=== PATIENT | female | born 1950 | race African-American/Black ===

== ENCOUNTER 2019-08-28 10:13 | Emergency (ER) | payer OTHER ==
--- NOTE | 2019-08-28 11:18 | RAD REPORT ---
EXAM DESCRIPTION: RAD - Chest Pa And Lat (2 Views) - 08/28/2019 10:43 am CLINICAL HISTORY: COUGH Chest pain. COMPARISON: No comparisons FINDINGS: The lungs are mildly hyperexpanded but clear. The heart is upper limit of normal in size. No displaced fractures.
[2019-08-28] MEDS ORDERED: CEFTRIAXONE/SWI 1gm 1 GM/10 ML SYR ONE (11:33)
[2019-08-28] MEDS ORDERED: LEVALBUTEROL 1.25 MG/3 ML NEB ONE (11:33)
[2019-08-28] MEDS ORDERED: IPRATROPIUM BROM 0.5MG/2.5ML ONE (11:33)
[2019-08-28 11:51] LABS: Absolute Lymphocytes (CBC) 1.9 K/uL (0.7-4.9); Basophils % 0.5 % (0-1.3); Hematocrit 38.1 % (36.0-45.0); Lymphocytes % 27.9 % (15.3-44.8); MPV 8.1 fL (7.6-11.3); RBC Red Blood Cell Count 4.08 M/uL (3.86-4.86)
[2019-08-28 11:55] LABS: Potassium 3.4 mmol/L (3.5-5.1)
--- NOTE | 2019-08-28 11:58 | ER ---
Nurse's Notes [facility] Name: Marry Chowdary Age: 68 yrs Sex: Female : 1950 Arrival Date: 08/28/2019 Time: 10:17 Bed X-Ray Private MD: Wolfgang Noriega R Diagnosis: Cough Presentation: 08/28 10:20 Presenting complaint: Patient states: "I've been coughing and I hear some rattling in aj1 my chest. I went to Dr. Hari Malcolm and he put me on some antibiotics. I wish he put me on that cough medicine with the codeine in it but he gave me the antibiotics and they aren't helping" Denies fever. Transition of care: patient was not received from another setting of care. Onset of symptoms was August 21, 2019. Risk Assessment: Do you want to hurt yourself or someone else? Patient reports no desire to harm self or others. Initial Sepsis Screen: Does the patient meet any 2 criteria? HR > 90 bpm. No. Patient's initial sepsis screen is negative. Does the patient have a suspected source of infection? Yes: Productive cough/pneumonia. Care prior to arrival: None. 10:20 Method Of Arrival: Ambulatory aj1 10:20 Acuity: MOSES 3 aj1 Triage Assessment: 10:25 General: Appears in no apparent distress. comfortable, Behavior is calm, cooperative, aj1 appropriate for age. Pain: Denies pain. Neuro: Level of Consciousness is awake, alert, obeys commands. Cardiovascular: Patient's skin is warm and dry. Respiratory: Airway is patent Respiratory effort is even, unlabored, Respiratory pattern is regular, symmetrical. Historical: - Allergies: 10:25 No Known Allergies; aj1 - Home Meds: 10:25 lisinopril 40 mg Oral tab 1 tab once daily [Active]; rosuvastatin 5 mg oral tab 1 tab aj1 once daily [Active]; hydrochlorothiazide 12.5 mg Oral cap 1 cap once daily [Active]; - PMHx: 10:25 Hypertension; Hyperlipidemia; Arthritis; aj1 - Immunization history:: Flu vaccine is up to date. - Social history:: Smoking status: Patient/guardian denies using tobacco. - Ebola Screening: : Patient denies travel to an Ebola-affected area in the 21 days before illness onset. Screenin:26 Abuse screen: Denies threats or abuse. Nutritional screening: No deficits noted. rb1 Tuberculosis screening: No symptoms or risk factors identified. Fall Risk None identified. Assessment: 10:26 General: Appears in no apparent distress. comfortable, Behavior is calm, cooperative, rb1 Denies fever. Neuro: Level of Consciousness is awake, alert, obeys commands, Oriented to person, place, time, situation. Cardiovascular: Capillary refill < 3 seconds is brisk in bilateral fingers. Respiratory: Reports cough that is. Derm: Skin is dry, Skin is normal, Skin temperature is warm. Musculoskeletal: Range of motion: intact in all extremities. 10:31 Reassessment: Pt. went to X-ray. rb1 11:30 Reassessment: Patient appears in no apparent distress at this time. No changes from rb1 previously documented assessment. Patient denies pain at this time. 12:09 Reassessment: Patient appears in no apparent distress at this time. Patient and/or rb1 family updated on plan of care and expected duration. Pain level reassessed. Patient is alert, oriented x 3, equal unlabored respirations, skin warm/dry/pink. Vital Signs: 10:25 BP 188 / 100; Pulse 102; Resp 20; Temp 97.9(TE); Pulse Ox 100% on R/A; Weight 107.5 kg aj1 (R); Height 5 ft. 7 in. (170.18 cm) (R); Pain 0/10; 11:25 BP 168 / 94; Pulse 79; Resp 19; Pulse Ox 99% on R/A; Pain 0/10; rb1 12:05 BP 158 / 88; Pulse 81; Resp 17; Temp 98.0(O); Pulse Ox 100% on R/A; Pain 0/10; rb1 10:25 Body Mass Index 37.12 (107.50 kg, 170.18 cm) aj1 ED Course: 10:17 Patient arrived in ED. as 10:17 Wolfgang Noriega MD is Private Physician. as 10:18 Carolina Gabriel FNP-C is [facility]. kb 10:18 Fausto Perez MD is Attending Physician. kb 10:23 Triage completed. aj1 10:25 Arm band placed on Patient placed in an exam room. aj1 10:26 Patient has correct armband on for positive identification. Bed in low position. Call rb1 light in reach. Side rails up X 1. Pulse ox on. NIBP on. Warm blanket given. 10:29 Mary Mayer, RN is Primary Nurse. rb1 10:33 X-ray completed. Patient tolerated procedure well. Patient moved to radiology via wheelchair. Patient moved back from radiology. 10:39 Chest Pa And Lat (2 Views) XRAY In Process Unspecified. EDMS 11:29 Initial lab(s) drawn, by me, sent to lab. Inserted saline lock: 20 gauge in left hand, em1 using aseptic technique. Blood collected. 12:12 No provider procedures requiring assistance completed. IV discontinued, intact, rb1 bleeding controlled, No redness/swelling at site. Pressure dressing applied. Administered Medications: 11:40 Drug: Xopenex (3) 1.25 mg Route: Inhalation; rb1 11:40 Drug: AtroVENT Aerosol 0.5 mg Route: Inhalation; rb1 11:42 Drug: Rocephin 1 grams Route: IV; Rate: calculated rate; Site: left hand; rb1 Outcome: 11:58 Discharge ordered by . kb 12:12 Patient left the ED. rb1 12:12 Discharged to home ambulatory, with family. rb1 12:12 Condition: stable 12:12 Discharge instructions given to patient, Instructed on discharge instructions, follow up and referral plans. medication usage, Demonstrated understanding of instructions, follow-up care, medications, Prescriptions given X 1. Signatures: Dispatcher [employer] EDWY Carolina Gabriel, DIRECTOR EXPERIMENTAL MEDICINE-C DIRECTOR EXPERIMENTAL MEDICINE-Lydia Gibbons RN RN 1 Olga Becerril Eric em1 Mary Mayer, RN RN rb1 Zohaib Garland
--- NOTE | 2019-08-28 11:58 | EDPHYS ---
Physician Documentation [facility] Name: Marry Chowdary Age: 68 yrs Sex: Female : 1950 Arrival Date: 08/28/2019 Time: 10:17 Bed X-Ray Private MD: Wolfgang Noriega R ED Physician Fausto Perez HPI: 08/28 10:58 This 68 yrs old Black Female presents to ER via Ambulatory with complaints of Cough. kb 11:16 The patient or guardian reports cough, that is intermittent, described as moderate, kb with no sputum. Onset: The symptoms/episode began/occurred 2 week(s) ago. Severity of symptoms: At their worst the symptoms were moderate, in the emergency department the symptoms are unchanged. Modifying factors: The symptoms are alleviated by nothing, the symptoms are aggravated by nothing. Associated signs and symptoms: The patient has no apparent associated signs or symptoms. The patient has not experienced similar symptoms in the past. The patient has been recently seen by a physician: the patient's primary care provider, with similar presenting complaints, was given a prescription for antibiotics. Pt reports cough for 2 weeks. Denies fever or any other symptoms. Was seen by Dr Noriega yesterday and given Augmentin, but she really wanted the cough syrup with codeine. States the antibiotics are not helping with the cough. Historical: - Allergies: 10:25 No Known Allergies; aj1 - Home Meds: 10:25 lisinopril 40 mg Oral tab 1 tab once daily [Active]; rosuvastatin 5 mg oral tab 1 tab aj1 once daily [Active]; hydrochlorothiazide 12.5 mg Oral cap 1 cap once daily [Active]; - PMHx: 10:25 Hypertension; Hyperlipidemia; Arthritis; aj1 - Immunization history:: Flu vaccine is up to date. - Social history:: Smoking status: Patient/guardian denies using tobacco. - Ebola Screening: : Patient denies travel to an Ebola-affected area in the 21 days before illness onset. ROS: 10:58 Constitutional: Negative for fever, chills, and weight loss, Neck: Negative for injury, kb pain, and swelling, Cardiovascular: Negative for chest pain, palpitations, and edema, Abdomen/GI: Negative for abdominal pain, nausea, vomiting, diarrhea, and constipation, Back: Negative for injury and pain, MS/Extremity: Negative for injury and deformity, Skin: Negative for injury, rash, and discoloration, Neuro: Negative for headache, weakness, numbness, tingling, and seizure. 10:58 Respiratory: Positive for cough, with no reported sputum, Negative for dyspnea on exertion, hemoptysis, orthopnea, pleurisy, shortness of breath, sputum production, wheezing. Exam: 11:16 Constitutional: This is a well developed, well nourished patient who is awake, alert, kb and in no acute distress. Head/Face: Normocephalic, atraumatic. ENT: Nares patent. No nasal discharge, no septal abnormalities noted. Tympanic membranes are normal and external auditory canals are clear. Oropharynx with no redness, swelling, or masses, exudates, or evidence of obstruction, uvula midline. Mucous membranes moist. Neck: Trachea midline, no thyromegaly or masses palpated, and no cervical lymphadenopathy. Supple, full range of motion without nuchal rigidity, or vertebral point tenderness. No Meningismus. Chest/axilla: Normal chest wall appearance and motion. Nontender with no deformity. No lesions are appreciated. Cardiovascular: Regular rate and rhythm with a normal S1 and S2. No gallops, murmurs, or rubs. Normal PMI, no JVD. No pulse deficits. Abdomen/GI: Soft, non-tender, with normal bowel sounds. No distension or tympany. No guarding or rebound. No evidence of tenderness throughout. Back: No spinal tenderness. No costovertebral tenderness. Full range of motion. Skin: Warm, dry with normal turgor. Normal color with no rashes, no lesions, and no evidence of cellulitis. MS/ Extremity: Pulses equal, no cyanosis. Neurovascular intact. Full, normal range of motion. Neuro: Awake and alert, GCS 15, oriented to person, place, time, and situation. Cranial nerves II-XII grossly intact. Motor strength 5/5 in all extremities. Sensory grossly intact. Cerebellar exam normal. Normal gait. 11:16 Respiratory: the patient does not display signs of respiratory distress, Respirations: normal, Breath sounds: rhonchi, that are mild, that are moderate, are heard in the left upper lobe, left lower lobe, left posterior upper lobe and left posterior lower lobe. Vital Signs: 10:25 BP 188 / 100; Pulse 102; Resp 20; Temp 97.9(TE); Pulse Ox 100% on R/A; Weight 107.5 kg aj1 (R); Height 5 ft. 7 in. (170.18 cm) (R); Pain 0/10; 11:25 BP 168 / 94; Pulse 79; Resp 19; Pulse Ox 99% on R/A; Pain 0/10; rb1 12:05 BP 158 / 88; Pulse 81; Resp 17; Temp 98.0(O); Pulse Ox 100% on R/A; Pain 0/10; rb1 10:25 Body Mass Index 37.12 (107.50 kg, 170.18 cm) aj1 MDM: 10:27 Patient medically screened. [facility] 11:56 Data reviewed: vital signs, nurses notes. Data interpreted: Pulse oximetry: on room air kb is 99 %. Interpretation: normal. Counseling: I had a detailed discussion with the patient and/or guardian regarding: the historical points, exam findings, and any diagnostic results supporting the discharge/admit diagnosis, lab results, radiology results, the need for outpatient follow up, a family practitioner, to return to the emergency department if symptoms worsen or persist or if there are any questions or concerns that arise at home. 08/28 11:02 Order name: CBC with Diff; Complete Time: 11:53 kb 08/28 11:02 Order name: Basic Metabolic Panel; Complete Time: 11:56 kb 08/28 10:24 Order name: Chest Pa And Lat (2 Views) XRAY; Complete Time: 11:22 kb 08/28 11:08 Order name: Urine Dipstick--Ancillary (enter results) eb 08/28 10:24 Order name: Urine Dipstick-Ancillary (obtain specimen); Complete Time: 11:29 kb 08/28 11:02 Order name: IV Start; Complete Time: 11:29 kb 08/28 11:22 Order name: Vital Signs; Complete Time: 11:44 kb Administered Medications: 11:40 Drug: Xopenex (3) 1.25 mg Route: Inhalation; rb1 11:40 Drug: AtroVENT Aerosol 0.5 mg Route: Inhalation; rb1 11:42 Drug: Rocephin 1 grams Route: IV; Rate: calculated rate; Site: left hand; rb1 Disposition: 08/28/19 11:58 Discharged to Home. Impression: Cough. - Condition is Stable. - Discharge Instructions: Cough, Adult, [id number]. - Prescriptions for Bromfed DM 2- 30-10 mg/5 mL Oral syrup - take 10 milliliter by ORAL route every 4 hours As needed; 100 milliliter. - Medication Reconciliation Form, Thank You Letter, Antibiotic Education, Prescription Opioid Use form. - Follow up: Private Physician; When: 2 - 3 days; Reason: Recheck today's complaints, Continuance of care, Re-evaluation by your physician. Follow up: Emergency Department; When: As needed; Reason: Worsening of condition. Addendum: 08/31/2019 06:44 Co-signature as Attending Physician, Fausto Perez MD I agree with the assessment and c felix plan of care. Signatures: Dispatcher [employer] EDMS Carolina Gabriel, PAIGE-C ASSISTANT PROFESSOR OF BUSINESS-Lydia Gibbons, RN RN aj1 Fausto Perez MD MD cha Barber, Rebecca, RN RN rb1 Corrections: (The following items were deleted from the chart) 08/28 12:12 11:58 08/28/2019 11:58 Discharged to Home. Impression: Cough. Condition is Stable. rb1 Forms are Medication Reconciliation Form, Thank You Letter, Antibiotic Education, Prescription Opioid Use. Follow up: Private Physician; When: 2 - 3 days; Reason: Recheck today's complaints, Continuance of care, Re-evaluation by your physician. Follow up: Emergency Department; When: As needed; Reason: Worsening of condition. kb
[2019-08-28 12:24] LABS: Urine Blood 1+ (NEG); Urine Glucose NEGATIVE (NEG); Urine Protein NEGATIVE (NEG); Urine Specific Gravity 1.015 (1.005-1.030)
[2019-08-28 15:18] VITALS: TEMP 97.9
[2019-08-28 15:19] VITALS: BP 168/94; O2SAT 99
== END 2019-08-28 12:12 | disposition home or self-care (01) ==
LOC: ER 10:13
DX: R05 Cough (principal); I10 Essential (primary) hypertension; E78.5 Hyperlipidemia, unspecified
CPT/HCPCS: 85025; 80048; 36415; 81003; 71046; 96374; 99284; J0696

== ENCOUNTER 2021-06-05 09:58 | Inpatient (IN) | payer OTHER, SELFPAY ==
[2021-06-05 10:57] LABS: Absolute Lymphocytes (CBC) 1.1 K/uL (0.7-4.9); Basophils % 0.3 % (0-1.3); Hematocrit 36.5 % (36.0-45.0); Lymphocytes % 15.5 % (15.3-44.8); MPV 8.2 fL (7.6-11.3); RBC Red Blood Cell Count 3.93 M/uL (3.86-4.86)
[2021-06-05] MEDS ORDERED: METHYLPREDNISOLONE 125 MG INJ ONE (10:58)
[2021-06-05] MEDS ORDERED: NA CHLORIDE 0.9% 500 ML ONE ×2 (10:59→11:33)
[2021-06-05 11:01] LABS: Urine Blood Trace-lysed (Negative); Urine Glucose Negative (Negative); Urine Protein 3+ (Negative); Urine Specific Gravity >=1.030 (1.005-1.030)
[2021-06-05 11:01] LABS: Protime INR 1.11
[2021-06-05 11:30] LABS: Bilirubin Direct 0.2 mg/dL (0-0.2); Bilirubin Total 0.5 mg/dL (0.2-1.0); Ferritin 4240.5 ng/mL (8-388); Protein, Total 8.4 g/dL (6.4-8.2); Troponin (Emerg Dept Use Only) 0.04 ng/mL (0.0-0.045)
--- NOTE | 2021-06-05 11:30 | RAD REPORT ---
EXAM DESCRIPTION: Kevon Single View06/05/2021 11:16 am CLINICAL HISTORY: Cough COMPARISON: 2019 FINDINGS: Lungs appear mildly hazy. The heart is normal size IMPRESSION: Lungs appear mildly hazy which may indicate a mild pneumonia
[2021-06-05 12:13] LABS: Urine Bacteria <20 /HPF (<20); Urine RBC <5 /HPF (NONE SEEN)
[2021-06-05 12:14] LABS: Urine Amorphous Sediment 2+ /HPF (NONE SEEN); Urine Mucus 1+ /HPF (NONE SEEN)
[2021-06-05 12:17] LABS: Blood Gas Oxyhemoglobin 90.2 % (94-97); Blood O2 Saturation 91.9 % (92-98.5)
[2021-06-05] MEDS ORDERED: NA CHLORIDE 0.9% 250 ML ONE (12:22)
[2021-06-05] MEDS ORDERED: AZITHROMYCIN 500 MG INJ IVPB ONE (12:22)
--- NOTE | 2021-06-05 12:35 | EDPHYS ---
Physician Documentation [facility] Name: Marry Chowdary Age: 70 yrs Sex: Female : 1950 Arrival Date: 06/05/2021 Time: 10:08 Bed 30 Private MD: ED Physician Joaquin Barrios HPI: 06/05 10:16 This 70 yrs old Black Female presents to ER via Unassigned with complaints of sob. rn 10:16 The patient has shortness of breath at rest. Onset: The symptoms/episode began/occurred rn at an unknown time. Duration: The symptoms are continuous. The patient's shortness of breath is aggravated by light activity, talking, is alleviated by rest, sitting up, application of supplemental oxygen. Associated signs and symptoms: Pertinent positives: non-productive cough, Pertinent negatives: chest pain, hemoptysis, loss of consciousness. Severity of symptoms: At their worst the symptoms were moderate in the emergency department the symptoms are unchanged. The patient has not experienced similar symptoms in the past. It is unknown whether or not the patient has recently seen a physician. Per EMS, patient with AMS and weakness, + SOB, COVID +. Pt denies chronic medical problems. Reports sick for 1 week. NO vomiting/diarrhea. Daughter checked on patient, patient unable to even stand. . Historical: - Allergies: 10:21 No Known Allergies; vg1 - Home Meds: 10:21 hydrochlorothiazide 12.5 mg Oral cap 1 cap once daily [Active]; lisinopril 40 mg Oral vg1 tab 1 tab once daily [Active]; rosuvastatin 5 mg Oral tab 1 tab once daily [Active]; - PMHx: 10:21 Arthritis; Hyperlipidemia; Hypertension; vg1 - Immunization history:: Adult Immunizations up to date, Client reports receiving the 1st dose of the Covid vaccine, June 01, 2021. - Social history:: Smoking status: Patient denies any tobacco usage or history of. - Family history:: not pertinent. - Hospitalizations: : No recent hospitalization is reported. ROS: 10:16 Constitutional: Negative for fever, chills, and weight loss, Eyes: Negative for injury, rn pain, redness, and discharge, Neck: Negative for injury, pain, and swelling, Cardiovascular: Negative for chest pain, palpitations, and edema, Respiratory: Negative for wheezing, and pleuritic chest pain Abdomen/GI: Negative for abdominal pain, nausea, vomiting, diarrhea, and constipation, Back: Negative for injury and pain, MS/Extremity: Negative for injury and deformity, Skin: Negative for injury, rash, and discoloration, Neuro: Negative for headache, numbness, tingling, and seizure. 10:16 All other systems are negative. Exam: 10:16 Constitutional: Overweight woman, + mild tachypnea Head/Face: Normocephalic, rn atraumatic. Eyes: Periorbital areas with no swelling, redness, or edema. ENT: Dry MM, no stridor Cardiovascular: Regular rate and rhythm. No pulse deficits. Respiratory: + mild tachypnea, no retractions, diminished at bases Abdomen/GI: soft, non-tender Skin: Warm, dry MS/ Extremity: Pulses equal, no cyanosis. Neuro: Awake and alert, GCS 15, not oriented to place or time. 11:53 ECG was reviewed by the Attending Physician. rn Vital Signs: 10:19 BP 102 / 68; Pulse 87; Resp 28; Temp 98.0(O); Pulse Ox 92% on 15% Non-rebreather mask; vg1 Weight 81.65 kg; Height 5 ft. 8 in. (172.72 cm); Pain 0/10; 11:00 BP 85 / 44; Pulse 86; Resp 40; Pulse Ox 93% on 15% Non-rebreather mask; vg1 12:26 BP 104 / 46; Pulse 83; Resp 32; Pulse Ox 97% on 15 lpm NC; ld1 10:19 Body Mass Index 27.37 (81.65 kg, 172.72 cm) vg1 12:26 Pt on hi jose armando 15LPM ld1 MDM: 10:08 Patient medically screened. rn 12:30 Differential diagnosis: Myocardial Infarction pneumonia, Pneumothorax pulmonary edema, rn Pulmonary Embolism reactive airway disease, Sepsis. Data reviewed: vital signs, nurses notes, lab test result(s), EKG, radiologic studies, plain films, and as a result, I will admit patient. Data interpreted: engine monitor: rate is 83 beats/min, rhythm is normal sinus rhythm, regular, with no ectopy, Interpretation: normal rate, normal rhythm, Pulse oximetry: on 100 % NRB is 92 %. Interpretation: hypoxia. Plan: O2 by Mask applied. Test interpretation: by ED physician or midlevel provider: ECG, plain radiologic studies, Chest x-ray with pneumonia, negative for pneumothorax. Counseling: I had a detailed discussion with the patient and/or guardian regarding: the historical points, exam findings, and any diagnostic results supporting the discharge/admit diagnosis, lab results, radiology results, the need for further work-up and treatment in the hospital. Response to treatment: the patient's symptoms have mildly improved after treatment. Admission orders: after a detailed discussion of the patient's condition and case, the admit orders are written by me. ED course: Will admit patient for pneumonia, likely Covid Covid pneumonia, acute renal failure, sepsis and hypotension.. 12:30 Antibiotic administration: rn 12:30 Antibiotic administration: Zithromax is given. rn 12:47 ED course: Blood pressure now 101/56 after some fluids.. 06/05 10:10 Order name: BMP 06/05 10:10 Order name: Blood Culture Adult (2) 06/05 10:10 Order name: C-Reactive Protein 06/05 10:10 Order name: CBC with Diff 06/05 10:10 Order name: D-Dimer 06/05 10:10 Order name: Ferritin 06/05 10:10 Order name: LFT's; Complete Time: 11:58 06/05 10:10 Order name: Lactate 06/05 10:10 Order name: PT-INR; Complete Time: 11:24 06/05 10:10 Order name: Procalcitonin; Complete Time: 11:58 06/05 10:10 Order name: Ptt, Activated; Complete Time: 11:24 06/05 10:10 Order name: Troponin (emerg Dept Use Only); Complete Time: 11:58 06/05 10:10 Order name: Urine Microscopic Only; Complete Time: 12:53 06/05 10:11 Order name: Basic Metabolic Panel; Complete Time: 11:58 [facility] 06/05 10:10 Order name: CXR XRAY; Complete Time: 11:31 06/05 10:11 Order name: Blood Culture EDCT 06/05 10:11 Order name: C-Reactive Protein; Complete Time: 11:58 EDCT 06/05 10:11 Order name: CBC with Automated Diff; Complete Time: 11:10 EDCT 06/05 10:11 Order name: D-Dimer; Complete Time: 11:24 EDCT 06/05 10:11 Order name: Ferritin; Complete Time: 11:58 [facility] 06/05 11:01 Order name: Urine Dipstick-Ancillary; Complete Time: 11:10 [facility] 06/05 11:59 Order name: ABG rn 06/05 16:43 Order name: Protime (+INR) EDCT 06/05 17:13 Order name: T4 Free [facility] 06/05 17:13 Order name: Thyroid Stimulating Hormone [facility] 06/06 03:06 Order name: CBC with Automated Diff EDCT 06/06 03:27 Order name: Comprehensive Metabolic Panel [facility] 06/07 03:05 Order name: Phosphorus [facility] 06/07 03:05 Order name: Magnesium [facility] 06/07 11:22 Order name: Comprehensive Metabolic Panel [facility] 06/05 10:10 Order name: EKG; Complete Time: 10:11 06/05 10:10 Order name: Cardiac monitoring; Complete Time: : 06/05 10:10 Order name: Droplet/Contact Precautions; Complete Time: 06/05 10:10 Order name: EKG - Nurse/Tech; Complete Time: : 06/05 10:10 Order name: IV Start; Complete Time: 06/05 10:10 Order name: Labs collected and sent; Complete Time: : 06/05 10:10 Order name: O2 Per Protocol; Complete Time: : 06/05 10:10 Order name: O2 Sat Monitoring; Complete Time: 06/05 10:10 Order name: Urine Dipstick-Ancillary (obtain specimen); Complete Time: 11:04 rn 06/06 07:34 Order name: US [facility] EC:53 Rate is 86 beats/min. Rhythm is regular. QRS [place] is Normal. NE interval is normal. QRS rn interval is normal. QT interval is normal. No Q waves. T waves are Inverted in leads II, III, aVF, V5, V6. No ST changes noted. Clinical impression: NSR w/ Non-specific ST/T Changes. Interpreted by me. Reviewed by me. Administered Medications: 10:52 Drug: NS 0.9% 500 ml Route: IV; Rate: bolus; Site: left forearm; vg1 12:15 Follow up: Response: No adverse reaction; IV Status: Completed infusion; IV Intake: ld1 500ml 10:54 Drug: SOLU-Medrol (methylPrednisoLONE) 125 mg Route: IVP; Site: left forearm; vg1 11:15 Drug: NS 0.9% 500 ml Route: IV; Rate: bolus; Site: left forearm; vg1 13:00 Follow up: Response: No adverse reaction; IV Status: Completed infusion; IV Intake: ld1 500ml 12:07 Drug: Zithromax (azithromycin) 500 mg Route: IVPB; Infused Over: 1 hrs; Site: left ld1 antecubital; 13:30 Follow up: Response: No adverse reaction; IV Status: Completed infusion; IV Intake: ld1 250ml Disposition: 12:30 Critical Care:. rn Disposition Summary: 06/05/21 12:34 Hospitalization Ordered Hospitalization Status: Inpatient Admission rn Condition: Fair rn Problem: new rn Symptoms: have improved rn Bed/Room Type: Standard rn Provider: Bell Izquierdo(06/05/21 13:11) rn Location: Intensive Care Unit(06/07/21 21:07) bb Room Assignment: 4-(06/07/21 21:07) bb Diagnosis - Sepsis, unspecified organism rn - Hypotension, unspecified rn - Pneumonia due to SARS-associated coronavirus rn - Acute kidney failure, unspecified rn Forms: - Medication Reconciliation Form rn - SBAR form intern architect time excluding procedures: 12:30 Critical care time: Bedside Care: 35 minutes, Consultation: 5 minutes. Total time: 40 rn minutes Signatures: Dispatcher [employer] Bere Matson RN RN bb Joaquin Barrios MD MD rn Smirch, Shelby, RN RN ss Lakisha Araiza, RN RN vg1 [place], RN RN ld1 Corrections: (The following items were deleted from the chart) 13:11 12:34 Eric Sotelo rn rn 16:17 12:34 Telemetry/MedSurg (Inpatient) rn ss 16:17 12:34 rn ss 06/07 21:07 06/05 16:17 [facility] ER HOLD ss bb 06/07 21:07 06/05 16:17 ERHOLD- ss bb
--- NOTE | 2021-06-05 12:35 | ER ---
Nurse's Notes [facility] Name: Marry Chowdary Age: 70 yrs Sex: Female : 1950 Arrival Date: 06/05/2021 Time: 10:08 Bed 30 Private MD: Diagnosis: Sepsis, unspecified organism;Hypotension, unspecified;Pneumonia due to SARS-associated coronavirus;Acute kidney failure, unspecified Presentation: 06/05 10:19 Chief complaint: EMS states: Pt c/o of Shortness of breath. Upon arrival pt O2 was 82% vg1 RA. Pt now on non rebreather 15L with O2 at 92%. Pt denies any chest pain at this time. Family stated pt is Covid +, but unsure of date of testing. Coronavirus screen: Client denies travel out of the [place] in the last 14 days. Client presents with at least one sign or symptom that may indicate coronavirus-19. Standard/surgical mask placed on the client. Provider contacted for isolation considerations. Ebola Screen: Patient negative for fever greater than or equal to 101.5 degrees Fahrenheit, and additional compatible Ebola Virus Disease symptoms. Initial Sepsis Screen: Does the patient meet any 2 criteria? No. Patient's initial sepsis screen is negative. Does the patient have a suspected source of infection? No. Patient's initial sepsis screen is negative. Risk Assessment: Do you want to hurt yourself or someone else? Patient reports no desire to harm self or others. Onset of symptoms was June 05, 2021. 10:19 Method Of Arrival: EMS: [facility] vg1 10:19 Acuity: [facility] 3 vg1 Triage Assessment: 10:21 General: Appears in no apparent distress. comfortable, Behavior is calm, cooperative. vg1 Pain: Denies pain. EENT: No signs and/or symptoms were reported regarding the EENT system. Neuro: Level of Consciousness is awake, alert, obeys commands, Oriented to person, place, time, situation. Cardiovascular: Patient's skin is warm and dry. Respiratory: Airway is patent Respiratory effort is even, unlabored, Respiratory pattern is tachypnea Breath sounds with crackles bilaterally. in left posterior lower lobe, right posterior middle lobe and right posterior lower lobe. GI: Reports diarrhea, Patient currently denies nausea, vomiting. : No signs and/or symptoms were reported regarding the genitourinary system. Derm: Skin is intact, Skin is pink, warm \T\ dry. Musculoskeletal: Circulation, motion, and sensation intact. Historical: - Allergies: 10:21 No Known Allergies; vg1 - Home Meds: 10: hydrochlorothiazide 12.5 mg Oral cap 1 cap once daily [Active]; lisinopril 40 mg Oral vg1 tab 1 tab once daily [Active]; rosuvastatin 5 mg Oral tab 1 tab once daily [Active]; - PMHx: 10:21 Arthritis; Hyperlipidemia; Hypertension; vg1 - Immunization history:: Adult Immunizations up to date, Client reports receiving the 1st dose of the Covid vaccine, June 01, 2021. - Social history:: Smoking status: Patient denies any tobacco usage or history of. - Family history:: not pertinent. - Hospitalizations: : No recent hospitalization is reported. Screenin:27 Abuse screen: Denies threats or abuse. Nutritional screening: No deficits noted. vg1 Tuberculosis screening: No symptoms or risk factors identified. Fall Risk No fall in past 12 months (0 pts). No secondary diagnosis (0 pts). IV access (20 points). Ambulatory Aid- Crutches/Cane/Walker (15 pts). Gait- Weak (10 pts.). Mental Status- Oriented to own ability (0 pts). Total Long Fall Scale indicates High Risk Score (45 or more points). Fall prevention measures have been instituted. Side Rails Up X 2 Placed Close to Nursing Station. Assessment: 10:28 Reassessment: SEE TRIAGE. vg1 11:05 Derm: Skin is moist, Rash noted that is red, on ABD fold. vg1 11:10 Reassessment: Dr Barrios notified of pt BP. Received VO to administer another 500 mL of vg1 NS IV x1. 12:26 Reassessment: Patient appears in no apparent distress at this time. No changes from ld1 previously documented assessment. Patient and/or family updated on plan of care and expected duration. Pain level reassessed. Vital Signs: 10:19 BP 102 / 68; Pulse 87; Resp 28; Temp 98.0(O); Pulse Ox 92% on 15% Non-rebreather mask; vg1 Weight 81.65 kg; Height 5 ft. 8 in. (172.72 cm); Pain 0/10; 11:00 BP 85 / 44; Pulse 86; Resp 40; Pulse Ox 93% on 15% Non-rebreather mask; vg1 12:26 BP 104 / 46; Pulse 83; Resp 32; Pulse Ox 97% on 15 lpm NC; ld1 10:19 Body Mass Index 27.37 (81.65 kg, 172.72 cm) vg1 12:26 Pt on hi jose armando 15LPM ld1 ED Course: 10:08 Patient arrived in ED. rn 10:08 Joaquin Barrios MD is Attending Physician. rn 10:19 Lakisha Araiza, DESTIN is Primary Nurse. vg1 10:21 Triage completed. vg1 10:27 Patient has correct armband on for positive identification. Bed in low position. Call vg1 light in reach. Side rails up X2. clinical research monitor on. Pulse ox on. NIBP on. 10:28 Arm band placed on. vg1 10:40 Maintain EMS IV. Dressing intact. Good blood return noted. Site clean \T\ dry. Gauge \T\ vg 1 site: 20 Left FA. 10:40 Initial lab(s) drawn, by me, sent to lab. First set of blood cultures drawn by me. vg1 10:55 Second set of blood cultures drawn by me. vg1 11:03 Warm blanket given. Pillow given. mh5 11:03 Straight cath inserted, using sterile technique, 16 Fr. Specimen obtained. mh5 11:04 Urine Microscopic Only Sent. mh5 11:04 Troponin (emerg Dept Use Only) Sent. mh5 11:04 Ptt, Activated Sent. mh5 11:04 Procalcitonin Sent. mh5 11:04 PT-INR Sent. mh5 11:04 Lactate Sent. mh5 11:04 LFT's Sent. mh5 11:04 Ferritin Sent. mh5 11:04 D-Dimer Sent. mh5 11:04 CBC with Diff Sent. mh5 11:04 C-Reactive Protein Sent. mh5 11:04 Blood Culture Adult (2) Sent. mh5 11:04 BMP Sent. mh5 11:05 Basic Metabolic Panel Sent. mh5 11:05 C-Reactive Protein Sent. mh5 11:05 Blood Culture Sent. mh5 11:05 Ferritin Sent. mh5 11:05 D-Dimer Sent. mh5 11:05 EKG done, by ED staff, reviewed by Joaquin Barrios MD. 5 11:16 CXR XRAY In Process Unspecified. EDMS 12:34 Eric Sotelo is Hospitalizing Provider. rn 13:11 Bell Izquierdo MD is Hospitalizing Provider. rn 06/07 23:23 No provider procedures requiring assistance completed. Patient admitted, IV remains in bb place. Administered Medications: 06/05 10:52 Drug: NS 0.9% 500 ml Route: IV; Rate: bolus; Site: left forearm; vg1 12:15 Follow up: Response: No adverse reaction; IV Status: Completed infusion; IV Intake: ld1 500ml 10:54 Drug: SOLU-Medrol (methylPrednisoLONE) 125 mg Route: IVP; Site: left forearm; vg1 11:15 Drug: NS 0.9% 500 ml Route: IV; Rate: bolus; Site: left forearm; vg1 13:00 Follow up: Response: No adverse reaction; IV Status: Completed infusion; IV Intake: ld1 500ml 12:07 Drug: Zithromax (azithromycin) 500 mg Route: IVPB; Infused Over: 1 hrs; Site: left ld1 antecubital; 13:30 Follow up: Response: No adverse reaction; IV Status: Completed infusion; IV Intake: ld1 250ml Intake: 12:15 IV: 500ml; Total: 500ml. ld1 13:00 IV: 500ml; Total: 1000ml. ld1 13:30 IV: 250ml; Total: 1250ml. ld1 Outcome: 12:34 Decision to Hospitalize by Provider. rn 06/07 23:19 Patient left the ED. mg4 23:23 Admitted to ICU accompanied by nurse, via stretcher, room 4, with oxygen, on monitor, bb with chart, Report called to Belinda RN by Jun WEIR 23:23 Condition: stable 23:23 Instructed on the need for admit. 23:24 Patient left the ED. bb Signatures: Dispatcher [employer] EDMS Bere Patterson RN RN bb Nieto, Roman, MD MD rn Martinez, Maria Lakisha Brewer RN RN vg1 [place] RN RN ld1 Garcia, [place] mg4 Corrections: (The following items were deleted from the chart) 06/05 10:28 10:19 BP 102 / 68; Pulse 87bpm; Resp 24bpm; Pulse Ox 92% 02 15% Non-rebreather mask; vg1 Temp 98.0F Oral; 81.65 kg; Height 5 ft. 8 in.; BMI: 27.3; Pain 0/10; vg1
[2021-06-05] MEDS ORDERED: ACETAMINOPHEN 500 MG TAB PO PRN (16:07)
[2021-06-05] MEDS ORDERED: HYDROCODONE/APAP 5/325 MG TAB PO PRN ×2 (16:11→16:27)
--- NOTE | 2021-06-05 16:38 | P.HP ---
Certification for Inpatient Patient admitted to: Inpatient With expected LOS: >2 Midnights Patient will require the following post-hospital care: None Practitioner: I am a practitioner with admitting privileges, knowledge of patient current condition, hospital course, and medical plan of care. Services: Services provided to patient in accordance with Admission requirements found in Title 42 Section 412.3 of the Code of Federal Regulations <Aixa Duran - Last Filed: 06/05/21 23:45> Patient History Date of Service: 06/05/21 Reason for admission: SOB History of Present Illness: Patient is a 71-year-old female with a past medical history significant for hypertension, hyperlipidemia who presents with complaint of shortness of breath. Patient currently alert and oriented x2. Family reported that she tested positive for COVID-19 infection on Friday. Patient reports associated signs and symptoms of cough. Patient reported that she has been having generalized malaise for the past 1 week. Patient denies any other signs or symptoms. Symptoms are aggravated by exertion and relieved by nothing. Family decided to send patient to the hospital due to worsening symptoms. Home medications list reviewed: No - Past Medical/Surgical History Has patient received pneumonia vaccine in the past: No -: HTN -: HLD Past Surgical History: Reviewed- Non-Contributory - Family History Family History: Reviewed- Non-Contributory - Social History Smoking Status: Never smoker Alcohol use: No CD- Drugs: No Caffeine use: No Place of Residence: Home <Aixa Duran - Last Filed: 06/05/21 23:45> Date of Service: 06/05/21 <Bell Izquierdo - Last Filed: 06/07/21 05:56> Allergies No Known Allergies Allergy (Verified 04/13/15 10:06) Home Medications: Lidocaine Viscous 2% Soln [Xylocaine Viscous Oral 2%] 3 tsp PO Q6HP PRN 04/13/15 Lisinopril [Zestril] 40 mg PO DAILY WITH BREAKFAST 04/13/15 Mag Hydrox/Al Hydrox/Simeth [Antacid Liquid] 2 tbsp PO Q6HP PRN 04/13/15 Phenobarb/Hyoscy/Atropine/Scop [ Elixir] 32.4 mg PO Q6HP PRN 04/13/15 Review of Systems General: Weakness, Malaise Eyes: Unremarkable ENT: Unremarkable Respiratory: Cough, Shortness of Breath, SOB with Excertion Cardiovascular: Unremarkable Gastrointestinal: Unremarkable Genitourinary: Unremarkable Musculoskeletal: Unremarkable Integumentary: Unremarkable Neurological: Unremarkable <RogerKeltheo Baker - Last Filed: 06/05/21 23:45> Physical Examination - Vital Signs Temperature: 98.7 F Blood Pressure: 109/68 Pulse: 92 Respirations: 18 Pulse Ox (%): 97 - Physical Exam General: Alert, In no apparent distress, Oriented x2, Confused HEENT: Atraumatic, PERRLA, Mucous membr. moist/pink, EOMI, Sclerae nonicteric Neck: Supple, 2+ carotid pulse no bruit, No LAD, Without JVD or thyroid abnormality Respiratory: Clear to auscultation bilaterally, Normal air movement Cardiovascular: Regular rate/rhythm, Normal S1 S2 Gastrointestinal: Normal bowel sounds, Soft and benign, No tenderness Musculoskeletal: No clubbing, No swelling, No tenderness Integumentary: Rash(es) Neurological: Normal gait, Normal speech, Normal tone, Normal affect Lymphatics: No axilla or inguinal lymphadenopathy External genitalia: Deferred Rectal: Deferred - Studies Laboratory Data (last 24 hrs) 06/05/21 10:40: PT 12.8 H, INR 1.11, APTT 24.2 L 06/05/21 10:40: WBC 6.90, Hgb 12.4, Hct 36.5, Plt Count 144 L 06/05/21 10:40: Sodium 142, Potassium 4.0, BUN 74 H, Creatinine 3.59 H, Glucose 147 H, Total Bilirubin 0.5, AST 337 H*, ALT 251 H, Alkaline Phosphatase 52 <RogerKeltheo Baker - Last Filed: 06/05/21 23:45> Assessment and Plan - Plan --COVID-19 pneumonia. Lab Clerk consulted. Patient placed on steroids, oral supplements and O2 therapy. Patient placed on ivermectin per recommendation of mechanical estimator. Further management per mechanical estimator. --COVID-19 pneumonia. Continue current treatment regimen. Continue droplet, contact and airborne precautions. --Acute respiratory failure with hypoxia. Continue current treatment regimen. Patient on O2 therapy. Further management per mechanical estimator. --HLD. Continue statin. --Acute encephalopathy. Could be secondary to delirium versus COVID-19 infection. Continue supportive care. --Hypertension. Stable. Continue home medications. --Acute kidney insufficiency. Nephrology consulted. Patient placed on gentle IV hydration. Will await further recommendation from document control clerk. --DVT prophylaxis with heparin subQ I have had discussion about advanced directives with the patient and /or family during this hospital admission. Addressed code status and /or goals of care. Spent more than 15 minutes. Case discussed with nurse Discharge disposition. Continue hospital stay. Discharge Plan: Home Plan to discharge in: 48 Hours - Advance Directives Does patient have a Living Will: No Does patient have a Durable POA for Healthcare: No Physician Review: Patient Assessed, Agree with Above Assessment and Plan Critical Care: No <Aixa Duran - Last Filed: 06/05/21 23:45> - Problems (Diagnosis) (1) Pneumonia due to COVID-19 virus Current Visit: Yes Status: Acute (2) Acute kidney injury Current Visit: Yes Status: Acute (3) Metabolic acidosis Current Visit: Yes Status: Acute (4) Elevated liver enzymes Current Visit: Yes Status: Acute <Bell Izquierdo - Last Filed: 06/07/21 05:56> Date of Service: 06/05/21 Subjective Chart reviewed. Patient has got sick about 4-5 days ago. Her sister was as [facility] and has COVID-19 pneumonia and on oxygen. She is older sister. She had been doing well at home until she became short of breath and decided to come into the emergency room. She was severely hypoxic and she was admitted for further evaluation. Review of Systems 10-point ROS is otherwise unremarkable Physical Examination - Vital Signs Reviewed - Physical Exam General: Alert, In no apparent distress, Oriented x3 Respiratory: Diminished Cardiovascular: Regular rate/rhythm, Normal S1 S2, No murmurs Gastrointestinal: Normal bowel sounds, Soft and benign, Non-distended, No tenderness Musculoskeletal: No clubbing, No swelling, No tenderness Neurological: Sensation intact, Cranial nerves 3-12 intact - Studies Medications List Reviewed: Yes Assessment & Plan - Problems (Diagnosis) (1) Pneumonia due to COVID-19 virus Current Visit: Yes Status: Acute (2) Acute kidney injury Current Visit: Yes Status: Acute (3) Metabolic acidosis Current Visit: Yes Status: Acute (4) Elevated liver enzymes Current Visit: Yes Status: Acute - Plan Agree with plan of care as mentioned below 1. Continue with IV steroids and gentle hydration; monitor renal function 2. Monitor inflammatory markers 3. Repeat chest x-ray if symptoms progressively worsening 4. O2 per protocol; we need to aggressively wean down O2 5. Pulmonary consultation 6. Continue with albuterol inhaler therapy; also supportive care 7. Monitor LFTs and renal function 8. GI and DVT prophylaxis <Bell Izquierdo - Last Filed: 06/07/21 05:56>
[2021-06-05 16:39] LABS: Protime INR 1.09
[2021-06-05] MEDS ORDERED: NA CHLORIDE 0.9% 1,000 ML IV SCH (17:00)
[2021-06-05] MEDS: IVERMECTIN 3 MG TABLET PO SCH (17:00)
[2021-06-05] MEDS: ASCORBIC ACID 500 MG TABLET PO SCH ×2 (17:00→20:35)
[2021-06-05] MEDS: HEPARIN 5000 UNIT/ML 1 ML VIAL SQ SCH (17:00)
[2021-06-05 17:13] LABS: Thyroid Stimulating Hormone 0.27 uIU/mL (0.360-3.740)
[2021-06-05] MEDS ORDERED: NA CHLORIDE 0.9% 1,000 ML ONE (18:16)
[2021-06-05] MEDS ORDERED: HEPARIN 5000 UNIT/ML 1 ML VIAL ONE (18:16)
[2021-06-05] MEDS ORDERED: ASCORBIC ACID 500 MG TABLET ONE ×2 (18:16→20:40)
[2021-06-05] MEDS: MELATONIN 5 MG TABLET PO SCH (20:35)
[2021-06-05] MEDS: METHYLPREDNISOLONE 40 MG INJ IV SCH (20:35)
[2021-06-05] MEDS: FAMOTIDINE 20 MG TAB PO SCH (20:35)
[2021-06-05] MEDS ORDERED: MELATONIN 5 MG TABLET PO ONE (20:40)
[2021-06-05] MEDS ORDERED: METHYLPREDNISOLONE 40 MG INJ ONE (20:40)
[2021-06-05] MEDS ORDERED: FAMOTIDINE 20 MG/2 ML VIAL IV ONE (20:41)
[2021-06-05] MEDS: THIAMINE HCL 100 MG TABLET PO SCH (21:00)
[2021-06-05] MEDS: GUAIFENESIN/CODEINE 5ML UCUP PO PRN (21:02)
[2021-06-05] MEDS ORDERED: guaiFENesin 100 MG/5 ML UCUP ONE (21:02)
[2021-06-05] MEDS ORDERED: GUAIFENESIN/CODEINE 5ML UCUP ONE (21:18)
[2021-06-05] MEDS ORDERED: THIAMINE HCL 100 MG TABLET ONE (22:45)
[2021-06-06] MEDS ORDERED: HEPARIN 5000 UNIT/ML 1 ML VIAL ONE ×4 (01:45→19:03)
[2021-06-06] MEDS: HEPARIN 5000 UNIT/ML 1 ML VIAL SQ SCH ×3 (02:20→17:00)
[2021-06-06 02:53] LABS: Absolute Lymphocytes (CBC) 0.8 K/uL (0.7-4.9); Basophils % 0.2 % (0-1.3); Hematocrit 34.5 % (36.0-45.0); Lymphocytes % 17.7 % (15.3-44.8); MPV 8.2 fL (7.6-11.3); RBC Red Blood Cell Count 3.68 M/uL (3.86-4.86)
[2021-06-06 03:26] LABS: Albumin 2.6 g/dL (3.4-5.0); Bilirubin Total 0.4 mg/dL (0.2-1.0); Potassium 4.1 mmol/L (3.5-5.1); Protein, Total 7.6 g/dL (6.4-8.2)
--- NOTE | 2021-06-06 07:33 | RAD REPORT ---
EXAM DESCRIPTION: US - Renal Ultrasound-Complete - 06/06/2021 5:40 am CLINICAL HISTORY: mihcael COMPARISON: ABDOMINAL EXAM COMPLETE dated 02/02/2015 FINDINGS: The right kidney measures 9.5 x 4.7 x 4.6 cm. The left kidney measures 9.9 x 5.6 x 4.2 cm . Renal cortical thickness and echogenicity are normal. No hydronephrosis or suspicious renal mass. No bladder wall thickening or mass. No intraluminal stone or mass. IMPRESSION: No hydronephrosis or suspicious renal mass. No other significant findings.
[2021-06-06] MEDS: NA CHLORIDE 0.9% 1,000 ML IV SCH ×2 (08:04→21:24)
--- NOTE | 2021-06-06 08:05 | P.CNS ---
Date of Consult: 06/06/21 Reason for Consult: COVID penumonia Chief Complaint: SOB History of Present Illness: age 70 with metabolic synd aw resp failure from COVID Allergies No Known Allergies Allergy (Verified 04/13/15 10:06) Home Medications: Lidocaine Viscous 2% Soln [Xylocaine Viscous Oral 2%] 3 tsp PO Q6HP PRN 04/13/15 Lisinopril [Zestril] 40 mg PO DAILY WITH BREAKFAST 04/13/15 Mag Hydrox/Al Hydrox/Simeth [Antacid Liquid] 2 tbsp PO Q6HP PRN 04/13/15 Phenobarb/Hyoscy/Atropine/Scop [ Elixir] 32.4 mg PO Q6HP PRN 04/13/15 - Past Medical/Surgical History -: HTN -: HLD - Social History Alcohol use: No CD- Drugs: No Caffeine use: No Place of Residence: Home Review of Systems General: Weakness, Malaise Respiratory: Shortness of Breath Physical Examination Temp Pulse Resp BP Pulse Ox 97.7 F 76 25 H 121/94 H 97 06/06/21 04:00 06/06/21 04:00 06/06/21 04:00 06/06/21 04:00 06/06/21 04:00 General: Alert, In no apparent distress, Oriented x3, Cooperative Laboratory Data (last 24 hrs) 06/05/21 10:40: PT 12.8 H, INR 1.11, APTT 24.2 L 06/05/21 10:40: WBC 6.90, Hgb 12.4, Hct 36.5, Plt Count 144 L 06/05/21 10:40: Sodium 142, Potassium 4.0, BUN 74 H, Creatinine 3.59 H, Glucose 147 H, Total Bilirubin 0.5, AST 337 H*, ALT 251 H, Alkaline Phosphatase 52 - Problems (1) Pneumonia due to COVID-19 virus Current Visit: Yes Status: Acute Plan: Age 70 AW COVID penumonia and resp failure/ labs reviewed AW ARF and hypernatremia. Renal function is improving/ Renal US neg/ increase IV fluids / Abnormal LFT, improving
[2021-06-06] MEDS ORDERED: THIAMINE HCL 100 MG TABLET ONE ×2 (08:06→22:05)
[2021-06-06] MEDS ORDERED: METHYLPREDNISOLONE 125 MG INJ ONE (08:06)
[2021-06-06] MEDS ORDERED: ASPIRIN EC 81 MG TAB PO ONE (08:06)
[2021-06-06] MEDS ORDERED: FAMOTIDINE 20 MG TAB ONE (08:07)
[2021-06-06] MEDS ORDERED: ZINC SULFATE 220 MG CAP ONE (08:07)
[2021-06-06] MEDS ORDERED: VITAMIN D 1000 UNIT TAB ONE (08:07)
[2021-06-06] MEDS ORDERED: ASCORBIC ACID 500 MG TABLET ONE ×3 (08:42→22:04)
[2021-06-06] MEDS: ASPIRIN 81 MG CHEWABLE TABLET PO SCH (09:00)
[2021-06-06] MEDS: METHYLPREDNISOLONE 40 MG INJ IV SCH ×2 (09:00→21:00)
[2021-06-06] MEDS: ASCORBIC ACID 500 MG TABLET PO SCH ×4 (09:00→21:00)
[2021-06-06] MEDS: THIAMINE HCL 100 MG TABLET PO SCH ×2 (09:00→21:00)
[2021-06-06] MEDS: FAMOTIDINE 20 MG TAB PO SCH (09:00)
[2021-06-06] MEDS: VITAMIN D 5,000 UNIT CAP PO SCH (09:00)
[2021-06-06] MEDS ORDERED: NA CHLORIDE 0.9% 1,000 ML ONE (09:54)
[2021-06-06] MEDS: GUAIFENESIN/CODEINE 5ML UCUP PO PRN (12:44)
[2021-06-06] MEDS: ONDANSETRON 4 MG/2 ML VIAL IV PRN ×2 (12:44→21:52)
[2021-06-06] MEDS ORDERED: ONDANSETRON 4 MG/2 ML VIAL ONE ×2 (13:00→22:05)
[2021-06-06] MEDS ORDERED: HYDROCODONE/APAP 5/325 MG TAB ONE (13:00)
[2021-06-06] MEDS ORDERED: ACETAMINOPHEN 500 MG TAB ONE ×2 (13:01→22:05)
[2021-06-06] MEDS ORDERED: GUAIFENESIN/CODEINE 5ML UCUP ONE (13:03)
--- NOTE | 2021-06-06 14:53 | CON ---
Reason For Consultation: Elevated BUN and creatinine, fluid management. History Of Present Illness: This is a 70-year-old female with significant past medical history of hypertension, hyperlipidemia, the patient presented to the hospital with COVID pneumonia, shortness of breath, poor intake in the last couple of days. Primary workup showed elevation in BUN and creatinine, creatinine 3.5, GFR of 15. For that reason, we have been consulted. The patient denied taking any nonsteroidal. No recent exposure to any contrast. No recent change in her medications. The patient has polyuria. No nocturia. Past Medical History: Includes; 1. Hypertension, on lisinopril. 2. Hyperlipidemia. Allergies: NO KNOWN DRUG ALLERGIES. Home Medications: Include lidocaine, lisinopril, and phenobarbital. Past Surgical History: Negative. Family History: Positive for hypertension. Social History: Denied smoking, denied drinking, denied drugs abuse. Review of Systems: Head and Neck: No red eye. No ear pain. GI: Has nausea. No vomiting. : No polyuria. No dysuria. No hematuria. Silverlight Developer: No vaginal discharge. Respiratory: Has cough and shortness of breath. Cardiovascular: No chest pain. Endocrine: No polydipsia. Skin: No rash. Neuro: Generalized weakness. Musculoskeletal: Generalized fatigue. Physical Examination: Vital Signs: When I saw to the patient; blood pressure 124/67, pulse of 66, afebrile. Chest: Clear to auscultation. Heart: S1, S2. Regular. Abdomen: Soft, nontender. Extremities: No edema. Neuro: Alert. No focality. Laboratory Data: Upon presentation yesterday; sodium 142, potassium 4, bicarb 20, BUN 74, creatinine 3.5, GFR of 15, calcium 8.5. Ferritin 4240. AST 337, ALT 251, albumin of 3, corrected calcium is 9.3. ABG; pH 7.38, CO2 of 31, O2 of 69, base access -5. Urinalysis; specific gravity 1.030, negative for infection, +3 protein. Assessment And Plan: 1. Acute kidney injury secondary to prerenal, secondary to poor intake, superimposed with KT inhibitor intake. The patient on the recovery, looked to me still on the dry side. I am going to continue IV hydration. Obstructive uropathy has been ruled out with ultrasound. We will continue to monitor. 2. Hypertension with the presence of acute kidney injury. Hold all blood pressure medications. 3. Acidosis secondary to renal failure, poor perfusion. Hold blood pressure medications. Start aggressive hydration and we will monitor the patient closely. 4. COVID pneumonia as by Pulmonary. Thank you, Dr. Izquierdo, for allowing us to participate in the care of your patient. Time spent examining the patient [id number] placing order discussing with the patient reviewing data discussing the case with all of our subspecialty including hospitalist 65 minutes TELLO Voice ID: [id number] Report ID: [id number]
--- NOTE | 2021-06-06 15:41 | EKG ---
Test Date: 2021-06-05 Test Time: 10:23:42 Oil Burner Servicer And Installer: LENCHO MEASUREMENT RESULTS: Intervals: Rate: 86 TX: 160 QRSD: 92 QT: 360 QTc: 430 [place]: P: 59 TX: 160 QRS: 9 T: 216 INTERPRETIVE STATEMENTS: Normal sinus rhythm Moderate voltage criteria for LVH, may be normal variant T wave abnormality, consider inferior ischemia Abnormal ECG Compared to ECG 04/13/2015 10:26:06 T-wave abnormality now present Possible ischemia now present Electronically Signed On 06-06-21 15:37:17 CDT by Ryan Lua
[2021-06-06] MEDS: MELATONIN 5 MG TABLET PO SCH (21:00)
[2021-06-06] MEDS ORDERED: MELATONIN 5 MG TABLET PO ONE (22:04)
[2021-06-06] MEDS ORDERED: METHYLPREDNISOLONE 40 MG INJ ONE (22:06)
[2021-06-07] MEDS: HEPARIN 5000 UNIT/ML 1 ML VIAL SQ SCH ×3 (01:00→22:38)
[2021-06-07 03:05] LABS: Magnesium 2.7 mg/dL (1.8-2.4); Phosphorus 2.8 mg/dL (2.5-4.9)
[2021-06-07] MEDS ORDERED: HEPARIN 5000 UNIT/ML 1 ML VIAL ONE ×3 (04:02→22:56)
[2021-06-07] MEDS ORDERED: NA CHLORIDE 0.9% 1,000 ML ONE (04:03)
--- NOTE | 2021-06-07 05:55 | P.PN ---
Subjective Date of Service: 06/06/21 Patient is clinically doing well with no new complaints. She states that she may have picked up COVID-19 pneumonia from sister. Sister is also on oxygen. Patient still slightly tachypneic. But she is overall feeling better. Renal function has improved. Monitor electrolytes closely. Review of Systems 10-point ROS is otherwise unremarkable Physical Examination - Vital Signs Temperature: 98.6 F Blood Pressure: 144/68 Pulse: 63 Respirations: 22 Pulse Ox (%): 95 - Physical Exam General: Alert, In no apparent distress, Oriented x3 Respiratory: Diminished Cardiovascular: Regular rate/rhythm, Normal S1 S2, No murmurs Gastrointestinal: Normal bowel sounds, Soft and benign, Non-distended, No tenderness Musculoskeletal: No clubbing, No swelling, No tenderness Neurological: Sensation intact, Cranial nerves 3-12 intact - Studies Medications List Reviewed: Yes Assessment & Plan - Problems (Diagnosis) (1) Pneumonia due to COVID-19 virus Current Visit: Yes Status: Acute (2) Acute kidney injury Current Visit: Yes Status: Acute (3) Metabolic acidosis Current Visit: Yes Status: Acute (4) Elevated liver enzymes Current Visit: Yes Status: Acute - Plan 1. Continue with IV steroids and gentle hydration with D5 water as patient hypernatremic 2. Monitor inflammatory markers 3. Repeat chest x-ray if symptoms progressively worsening 4. O2 per protocol; we need to aggressively wean down O2 5. Pulmonary consultation 6. Continue with albuterol inhaler therapy; also supportive care 7. Monitor LFTs and renal function 8. GI and DVT prophylaxis Discharge Plan: Home Plan to discharge in: Greater than 2 days - Advance Directives Does patient have a Living Will: No Does patient have a Durable POA for Healthcare: No - Code Status/Comfort Care Code Status Assessed: Yes Code Status: Full Code Physician Review: Patient Assessed, Agree with Above Assessment and Plan Critical Care: No Time Spent Managing PTS Care (In Minutes): 35
[2021-06-07] MEDS ORDERED: ALBUTEROL INHALER 60 PUFF/8 GM IH PRN (05:57)
--- NOTE | 2021-06-07 06:29 | P.PN ---
Subjective Date of Service: 06/07/21 Chief Complaint: SOB Physical Examination - Vital Signs Temperature: 98.6 F Blood Pressure: 144/68 Pulse: 63 Respirations: 22 Pulse Ox (%): 95 - Physical Exam General: Other (appears as her stated age) HEENT: Atraumatic, Normocephalic Respiratory: Other (symmetric chest expansion) Cardiovascular: No rubs, No murmurs Urinary: Other (no bladder distention) - Studies Medications List Reviewed: Yes Assessment And Plan - Plan 1. Acute kidney injury secondary to prerenal, secondary to poor intake, superimposed with KT inhibitor intake. Improved. Obstructive uropathy has been ruled out with ultrasound. Cont IV fluid while po fluid intake is poor. monitor renal panel. 2. Acidosis secondary to renal failure, poor perfusion. Resolved. Monitor. 3. COVID pneumonia. Mngt per other services. 4. Hypernatremia. Cont D5W 75 cc/hr. 5. Anemia. Monitor H/H. Physician Review: Patient Assessed, Agree with Above Assessment and Plan
[2021-06-07] MEDS ORDERED: D5W 1,000 ML IV ONE (06:52)
[2021-06-07] MEDS: D5W 1,000 ML IV SCH ×2 (07:30→19:20)
[2021-06-07] MEDS: THIAMINE HCL 100 MG TABLET PO SCH ×2 (09:00→21:00)
[2021-06-07] MEDS: VITAMIN D 5,000 UNIT CAP PO SCH (09:00)
[2021-06-07] MEDS: ASCORBIC ACID 500 MG TABLET PO SCH ×3 (09:00→21:00)
[2021-06-07] MEDS: ASPIRIN 81 MG CHEWABLE TABLET PO SCH (09:00)
[2021-06-07] MEDS: FAMOTIDINE 20 MG TAB PO SCH (09:00)
[2021-06-07] MEDS: METHYLPREDNISOLONE 40 MG INJ IV SCH ×2 (09:00→21:00)
[2021-06-07 11:21] LABS: Albumin 2.7 g/dL (3.4-5.0); Bilirubin Total 0.6 mg/dL (0.2-1.0); Protein, Total 7.4 g/dL (6.4-8.2)
[2021-06-07] MEDS ORDERED: ASCORBIC ACID 500 MG TABLET ONE ×4 (12:17→22:56)
[2021-06-07] MEDS ORDERED: METHYLPREDNISOLONE 40 MG INJ ONE ×2 (12:18→22:57)
[2021-06-07] MEDS ORDERED: ASPIRIN 81 MG CHEWABLE TABLET ONE (12:18)
[2021-06-07] MEDS ORDERED: THIAMINE HCL 100 MG TABLET ONE ×2 (12:18→22:57)
[2021-06-07] MEDS ORDERED: FAMOTIDINE 20 MG TAB ONE (12:19)
--- NOTE | 2021-06-07 13:03 | P.PN ---
Subjective Date of Service: 06/07/21 Chief Complaint: Respiratory failure Subjective: Improving (Patient is stable renal function has improved on 15 L of oxygen) Review of Systems General: Weakness Respiratory: Shortness of Breath Physical Examination - Vital Signs Temperature: 98.6 F Blood Pressure: 113/61 Pulse: 92 Respirations: 22 Pulse Ox (%): 93 - Physical Exam General: Alert, In no apparent distress, Oriented x3 - Studies Medications List Reviewed: Yes Assessment & Plan - Problems (Diagnosis) (1) Pneumonia due to COVID-19 virus Current Visit: Yes Status: Acute Plan: Respiratory failure patient now qualifies for Barcitinib renal function hepatic function have all improved still has mild hyponatremia vital signs stable Physician Review: Patient Assessed, Agree with Above Assessment and Plan
[2021-06-07] MEDS: BARICITINIB 2 MG TABLET PO SCH (14:00)
[2021-06-07] MEDS: IVERMECTIN 3 MG TABLET PO SCH (17:00)
[2021-06-07] MEDS: MELATONIN 5 MG TABLET PO SCH (21:00)
[2021-06-07] MEDS ORDERED: MELATONIN 5 MG TABLET PO ONE (22:56)
[2021-06-08] MEDS: ASCORBIC ACID 500 MG TABLET PO SCH ×5 (00:58→20:32)
[2021-06-08] MEDS: HEPARIN 5000 UNIT/ML 1 ML VIAL SQ SCH ×2 (00:58→09:54)
[2021-06-08] MEDS: D5W 1,000 ML IV SCH ×2 (01:19→18:49)
[2021-06-08 06:20] LABS: Absolute Lymphocytes (CBC) 1.9 K/uL (0.7-4.9); Basophils % 0.2 % (0-1.3); Hematocrit 36.9 % (36.0-45.0); MPV 8.4 fL (7.6-11.3); RBC Red Blood Cell Count 3.96 M/uL (3.86-4.86)
[2021-06-08 06:33] LABS: Potassium 3.6 mmol/L (3.5-5.1)
[2021-06-08 06:45] LABS: Albumin 2.7 g/dL (3.4-5.0); C-Reactive Protein 23.2 mg/L (<3.00); Ferritin 1841.6 ng/mL (8-388); Magnesium 2.4 mg/dL (1.8-2.4); Protein, Total 7.5 g/dL (6.4-8.2)
--- NOTE | 2021-06-08 07:09 | P.PN ---
Subjective Date of Service: 06/08/21 Chief Complaint: SOB Subjective: No new changes Physical Examination - Vital Signs Temperature: 97.5 F Blood Pressure: 133/70 Pulse: 57 Respirations: 21 Pulse Ox (%): 94 - Physical Exam General: Acute distress HEENT: Normocephalic Neck: Supple Respiratory: Other (symmetric chest expansion) Cardiovascular: No rubs, No murmurs Gastrointestinal: Soft and benign Musculoskeletal: No clubbing Urinary: Other (no bladder distention) - Studies Medications List Reviewed: Yes Assessment And Plan - Plan 1. Acute kidney injury secondary to prerenal, secondary to poor intake, superimposed with KT inhibitor intake. Improved. SCr 1.0. Obstructive uropathy has been ruled out with ultrasound. Cont IV fluid while po fluid intake is poor. monitor renal panel. 2. Acidosis secondary to renal failure, poor perfusion. Resolved. Monitor. 3. COVID pneumonia. Mngt per other services. 4. Hypernatremia. improving. Cont D5W 75 cc/hr. 5. Anemia. Monitor H/H. Physician Review: Patient Assessed, Agree with Above Assessment and Plan
[2021-06-08 09:05] LABS: Blood Morphology Comment NOT SEEN (NOT SEEN); Platelet Estimate ADEQ
[2021-06-08] MEDS: ASPIRIN 81 MG CHEWABLE TABLET PO SCH (09:53)
[2021-06-08] MEDS: THIAMINE HCL 100 MG TABLET PO SCH ×2 (09:54→20:31)
[2021-06-08] MEDS: METHYLPREDNISOLONE 40 MG INJ IV SCH ×2 (09:54→20:32)
[2021-06-08] MEDS: VITAMIN D 5,000 UNIT CAP PO SCH (09:56)
[2021-06-08] MEDS: FAMOTIDINE 20 MG TAB PO SCH (09:57)
[2021-06-08] MEDS: BARICITINIB 2 MG TABLET PO SCH (09:58)
--- NOTE | 2021-06-08 15:15 | P.PN ---
Subjective Date of Service: 06/08/21 Chief Complaint: Respiratory failure from coronavirus No change still requiring high concentrations of oxygen Review of Systems General: Weakness Respiratory: Shortness of Breath Physical Examination - Vital Signs Temperature: 97.9 F Blood Pressure: 123/72 Pulse: 75 Respirations: 27 Pulse Ox (%): 93 - Physical Exam General: Alert, In no apparent distress, Oriented x3, Cooperative - Studies Medications List Reviewed: Yes Assessment & Plan - Problems (Diagnosis) (1) Pneumonia due to COVID-19 virus Current Visit: Yes Status: Acute Plan: Respiratory failure feeling better however she is still requiring high flow oxygen renal function and hepatic function are improving on maximal therapy changed to p.o. Xarelto Physician Review: Patient Assessed, Agree with Above Assessment and Plan
[2021-06-08] MEDS: RIVAROXABAN 20 MG TABLET PO SCH (18:48)
[2021-06-08] MEDS: MELATONIN 5 MG TABLET PO SCH (20:32)
[2021-06-09 05:43] LABS: Absolute Lymphocytes (CBC) 1.1 K/uL (0.7-4.9); Basophils % 0.3 % (0-1.3); Lymphocytes % 13.9 % (15.3-44.8); MPV 8.5 fL (7.6-11.3); RBC Red Blood Cell Count 3.91 M/uL (3.86-4.86)
[2021-06-09 06:03] LABS: Albumin 2.6 g/dL (3.4-5.0); Bilirubin Total 1.1 mg/dL (0.2-1.0); C-Reactive Protein 37.2 mg/L (<3.00); Ferritin 1483.7 ng/mL (8-388); Protein, Total 7.3 g/dL (6.4-8.2)
[2021-06-09 06:08] LABS: Magnesium 2.3 mg/dL (1.8-2.4); Potassium 4.7 mmol/L (3.5-5.1)
--- NOTE | 2021-06-09 09:47 | P.PN ---
Date of Service: 06/07/21 Subjective Patient is still hypoxic. Patient moved to the intensive care unit. Continue with current treatment and hopefully patient can turn around. Mentation is okay but she does get fatigued and tired. She is not really eating that well. Encourage eating better. Review of Systems 10-point ROS is otherwise unremarkable Physical Examination - Vital Signs Reviewed - Physical Exam General: Alert, In no apparent distress, Oriented x2-3 Respiratory: Diminished Cardiovascular: Regular rate/rhythm, Normal S1 S2, No murmurs Gastrointestinal: Normal bowel sounds, Soft and benign, Non-distended, No tenderness Musculoskeletal: No clubbing, No swelling, No tenderness Neurological: Sensation intact, Cranial nerves 3-12 intact Assessment & Plan - Problems (Diagnosis) (1) Pneumonia due to COVID-19 virus Current Visit: Yes Status: Acute (2) Acute kidney injury Current Visit: Yes Status: Acute (3) Metabolic acidosis Current Visit: Yes Status: Acute (4) Elevated liver enzymes Current Visit: Yes Status: Acute (5) Anorexia Current Visit: Yes Status: Acute (6) Weakness Current Visit: Yes Status: Acute - Plan Continue with plan of care as mentioned below: 1. Continue with IV steroids and gentle hydration;will Hep-Lock IV. Renal function improving; encourage nutrition as well 2. Continue to monitor inflammatory markers closely 3. Repeat chest x-ray if symptoms progressively worsening; monitor for any sudden changes 4. O2 per protocol; wall oxygen at 15 L 5. Pulmonary consultation completed in the chart 6. Continue with albuterol inhaler therapy; also supportive care 7. Monitor LFTs and renal function as well 8. GI and DVT prophylaxis Discharge Plan: Home Plan to discharge in: Greater than 2 days - Advance Directives Does patient have a Living Will: No Does patient have a Durable POA for Healthcare: No - Code Status/Comfort Care Code Status Assessed: Yes Code Status: Full Code Physician Review: Patient Assessed, Agree with Above Assessment and Plan Critical Care: No Time Spent Managing PTS Care (In Minutes): 25
--- NOTE | 2021-06-09 09:54 | P.PN ---
Date of Service: 06/09/21 Subjective Patient remains hypoxic. She is eating better. Someone brought her some lunch and she is eating it at bedside. She still remains very hypoxic. Continue with current plan of care as mentioned below. 06/08 Appetite is still diminished. Spoke with nursing staff and encouraged oral intake. Patient mentation is still stable. She answers most of my questions appropriately. Encourage her to get out of bed into a chair. Spoke with nurse about this. She requested ice cream and we will try to get future with each of her meals. 06/07 Patient is still hypoxic. Patient moved to the intensive care unit. Continue with current treatment and hopefully patient can turn around. Mentation is okay but she does get fatigued and tired. She is not really eating that well. Encourage eating better. Review of Systems 10-point ROS is otherwise unremarkable Physical Examination - Vital Signs Reviewed - Physical Exam General: Alert, In no apparent distress, Oriented x2-3 Respiratory: Diminished Cardiovascular: Regular rate/rhythm, Normal S1 S2, No murmurs Gastrointestinal: Normal bowel sounds, Soft and benign, Non-distended, No tenderness Musculoskeletal: No clubbing, No swelling, No tenderness Neurological: No focal deficits except for generalized weakness Assessment & Plan - Problems (Diagnosis) (1) Pneumonia due to COVID-19 virus Current Visit: Yes Status: Acute (2) Acute kidney injury Current Visit: Yes Status: Acute (3) Metabolic acidosis Current Visit: Yes Status: Acute (4) Elevated liver enzymes Current Visit: Yes Status: Acute (5) Anorexia Current Visit: Yes Status: Acute (6) Weakness Current Visit: Yes Status: Acute - Plan Continue with plan of care as mentioned below: 1. Continue with IV steroids; Hep-Lock IV. Renal function improving; encourage nutrition as well 2. Continue to monitor inflammatory markers closely 3. Monitor chemistries 4. O2 per protocol; wall oxygen at 15 L 5. Pulmonary consultation completed in the chart 6. Continue with albuterol inhaler therapy; also supportive care 7. GI and DVT prophylaxis Discharge Plan: Home Plan to discharge in: Greater than 2 days - Advance Directives Does patient have a Living Will: No Does patient have a Durable POA for Healthcare: No - Code Status/Comfort Care Code Status Assessed: Yes Code Status: Full Code Physician Review: Patient Assessed, Agree with Above Assessment and Plan Critical Care: No Time Spent Managing PTS Care (In Minutes): 25
[2021-06-09] MEDS: ASPIRIN 81 MG CHEWABLE TABLET PO SCH (09:55)
[2021-06-09] MEDS: ASCORBIC ACID 500 MG TABLET PO SCH ×4 (09:55→21:05)
[2021-06-09] MEDS: FAMOTIDINE 20 MG TAB PO SCH (09:55)
[2021-06-09] MEDS: THIAMINE HCL 100 MG TABLET PO SCH ×2 (09:55→21:00)
[2021-06-09] MEDS: METHYLPREDNISOLONE 40 MG INJ IV SCH ×2 (09:56→21:04)
[2021-06-09] MEDS: VITAMIN D 5,000 UNIT CAP PO SCH (09:56)
[2021-06-09] MEDS: BARICITINIB 2 MG TABLET PO SCH (09:58)
[2021-06-09] MEDS ORDERED: METHYLPREDNISOLONE 40 MG INJ IV ONE (10:00)
[2021-06-09] MEDS: D5W 1,000 ML IV SCH ×2 (11:20→14:07)
[2021-06-09] MEDS: RIVAROXABAN 20 MG TABLET PO SCH (15:51)
--- NOTE | 2021-06-09 16:39 | PN ---
Date of Progress Note: 06/09/2021 Subjective: The patient was admitted with acute kidney injury secondary to prerenal, superimposed wi th KT inhibitor. The patient after hydration, holding KT inhibitor. Kidney function was resolved. The patient had respiratory failure secondary to COVID. Physical Examination: Vital Signs: Blood pressure 141/72, pulse of 80. Chest: Faint thrills bilateral. Heart: S1, S2 regular. Abdomen: Soft, nontender. Extremities: No edema. Neuro: No focality. Laboratory Data: WBC 7.7, H and H of 12.2/36, platelets 221. Sodium 140, potassium 4.7, bicarb 23, BUN is 27, creatinine 0.9, calcium 8.4, phosphorus 3. Current Medications: The patient on/it include: 1.Aspirin. 2.Albuterol. 3.Xarelto. 4.Tylenol. 5.Pepcid. 6.Solu-Medrol. 7.D5. Assessment And Plan: 1.Acute kidney injury secondary to prerenal/KT inhibitor recovered, resolved, normal-sized kidney. 2.Hypertension, controlled, optimal. 3.Hyponatremia. Continue D5 trending down. We will follow up. 4.COVID pneumonia respiratory failure as by Pulmonary. VIVIAN/FITZ Voice ID: [id number] Report ID: [id number]
[2021-06-09] MEDS: MELATONIN 5 MG TABLET PO SCH (21:00)
[2021-06-10 05:33] LABS: Absolute Lymphocytes (CBC) 0.8 K/uL (0.7-4.9); Basophils % 0.1 % (0-1.3); Hematocrit 37.4 % (36.0-45.0); Lymphocytes % 7.8 % (15.3-44.8); MPV 8.4 fL (7.6-11.3); RBC Red Blood Cell Count 4.01 M/uL (3.86-4.86)
[2021-06-10 05:47] LABS: Albumin 2.5 g/dL (3.4-5.0); Bilirubin Total 0.8 mg/dL (0.2-1.0); C-Reactive Protein 66.7 mg/L (<3.00); Magnesium 2.6 mg/dL (1.8-2.4); Potassium 4.3 mmol/L (3.5-5.1); Protein, Total 7.3 g/dL (6.4-8.2)
[2021-06-10] MEDS: METHYLPREDNISOLONE 40 MG INJ IV SCH ×2 (09:57→20:41)
[2021-06-10] MEDS: BARICITINIB 2 MG TABLET PO SCH (09:57)
[2021-06-10] MEDS: ASPIRIN 81 MG CHEWABLE TABLET PO SCH (09:58)
[2021-06-10] MEDS: THIAMINE HCL 100 MG TABLET PO SCH ×2 (09:58→19:11)
[2021-06-10] MEDS: ASCORBIC ACID 500 MG TABLET PO SCH ×4 (09:58→19:11)
[2021-06-10] MEDS: VITAMIN D 5,000 UNIT CAP PO SCH (09:59)
[2021-06-10] MEDS: FAMOTIDINE 20 MG TAB PO SCH (09:59)
[2021-06-10] MEDS ORDERED: FUROSEMIDE 20 MG/ 2ML VIAL IV ONE (10:29)
--- NOTE | 2021-06-10 10:33 | P.PN ---
Subjective Date of Service: 06/10/21 Chief Complaint: Respiratory failure No change still requiring very high concentrations of oxygen n Review of Systems General: Weakness Respiratory: Shortness of Breath Physical Examination - Vital Signs Temperature: 97.7 F Blood Pressure: 129/76 Pulse: 62 Respirations: 29 Pulse Ox (%): 91 - Physical Exam General: Alert, Oriented x3, Cooperative - Studies Medications List Reviewed: Yes Assessment & Plan - Problems (Diagnosis) (1) Pneumonia due to COVID-19 virus Current Visit: Yes Status: Acute Plan: Respiratory failure no change 1 dose of Lasix labs reviewed patient will probably benefit from a Dobbhoff also start patient on a BiPAP on max therapy chest x-ray Physician Review: Patient Assessed, Agree with Above Assessment and Plan
--- NOTE | 2021-06-10 13:43 | PN ---
Date of Progress Note: 06/10/2021 Subjective: The patient was admitted with COVID pneumonia. 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 The patient had hypernatremia. Kidney function has been normalized. The patient's respiratory status has been worsening. Over the night, the patient was placed on BiPAP. Physical Examination: Vital Signs: When I saw the patient; blood pressure 129/76, pulse of 62, afebrile. Chest: Crackles bilateral base. Heart: S1, S2. Systolic murmur. Abdomen: Soft, nontender. Extremity: No edema. Neuro: Alert. No focality. Laboratory Data: WBC 10.4, H and H 12.5/37. Sodium 141, potassium 4.3, bicarb 26, BUN 34, creatinine 0.9, GFR of 67, calcium 8.7. Ferritin trending down of 1339. Albumin 2.5, corrected calcium is 9.9. Current Medications: The patient on include; 1. Aspirin. 2. Albuterol. 3. Xarelto. 4. Lasix p.r.n. 5. Pepcid. 6. Solu-Medrol. 7. tylenol 8. Hydrocodone for pain control. 9. Cholecalciferol. 10. Thiamin. 11. Vitamin C. Assessment And Plan: 1. Acute kidney injury multifactorial secondary to COVID nephropathy, prerenal, and KT inhibitor use, recovered, resolved, looked to me slightly on the wet side. I am going to give the patient a single dose of Lasix today and we will get repeat chest x-ray for better evaluation of the fluid status for the patient and we will follow up the patient. 2. Hypertension, controlled, optimal. Continue current medication. 3. Hypernatremia, still plateaued. Keep holding IV fluid to avoid any over volume currently. We will follow up after diuresis. 4. COVID pneumonia. Follow up with Pulmonary and Critical Care. Time spent examining the patient [id number] placing order discussing with the patient reviewing data discussing the case with all of our subspecialty including hospitalist 45 minutes TELLO Voice ID: [id number] Report ID: [id number] [facility] [place]
--- NOTE | 2021-06-10 16:07 | P.PN ---
Date of Service: 06/10/21 Subjective Patient clinical condition continues to worsen. She is not requiring BiPAP support. Unfortunately, it does not care like she is not improving much. She has started eating yesterday and I was hoping that she would continue to get better. At this time, her clinical status has not really improved. Continue monitoring closely. Review of Systems 10-point ROS is otherwise unremarkable Physical Examination - Vital Signs Reviewed - Physical Exam General: Alert, In no apparent distress, Oriented x2-3 Respiratory: Diminished Cardiovascular: Regular rate/rhythm, Normal S1 S2, No murmurs Gastrointestinal: Normal bowel sounds, Soft and benign, Non-distended, No tenderness Musculoskeletal: No clubbing, No swelling, No tenderness Neurological: No focal deficits except for generalized weakness Assessment & Plan - Problems (Diagnosis) (1) Pneumonia due to COVID-19 virus Current Visit: Yes Status: Acute (2) Acute kidney injury Current Visit: Yes Status: Acute (3) Metabolic acidosis Current Visit: Yes Status: Acute (4) Elevated liver enzymes Current Visit: Yes Status: Acute (5) Anorexia Current Visit: Yes Status: Acute (6) Weakness Current Visit: Yes Status: Acute - Plan Continue with plan of care as mentioned below: 1. Continue with IV steroids; nutritional status is still not that great and now with the BiPAP on she probably needs to start feedings but she refused tube feedings at this time. Will update the family regarding her current status. 2. Continue to monitor inflammatory markers closely 3. Continue monitoring renal function closely 4. Continue BiPAP support 5. Continue with current plan of care as mentioned prior. 6. May need to add additional nebulizer therapy if continues to be congested 7. GI and DVT prophylaxis Discharge Plan: Home Plan to discharge in: Greater than 2 days - Advance Directives Does patient have a Living Will: No Does patient have a Durable POA for Healthcare: No - Code Status/Comfort Care Code Status Assessed: Yes Code Status: Full Code Physician Review: Patient Assessed, Agree with Above Assessment and Plan Critical Care: No Time Spent Managing PTS Care (In Minutes): 25
--- NOTE | 2021-06-10 17:19 | RAD REPORT ---
EXAM DESCRIPTION: [facility] Single View06/10/2021 5:12 pm CLINICAL HISTORY: Respiratory failure COMPARISON: June 05, 2021 FINDINGS: Worsening in bilateral pulmonary opacities. . The heart is normal size IMPRESSION: [id number] bilateral pulmonary opacities which have worsened likely pneumonia
[2021-06-10] MEDS: RIVAROXABAN 20 MG TABLET PO SCH (18:32)
[2021-06-10] MEDS: MELATONIN 5 MG TABLET PO SCH (19:10)
[2021-06-11 05:07] LABS: Absolute Lymphocytes (CBC) 0.9 K/uL (0.7-4.9); Basophils % 0.1 % (0-1.3); Hematocrit 37.6 % (36.0-45.0); MPV 8.6 fL (7.6-11.3); RBC Red Blood Cell Count 4.03 M/uL (3.86-4.86)
[2021-06-11 05:33] LABS: C-Reactive Protein 84.6 mg/L (<3.00); Ferritin 1520.5 ng/mL (8-388); Magnesium 3.1 mg/dL (1.8-2.4); Potassium 4.5 mmol/L (3.5-5.1)
--- NOTE | 2021-06-11 07:27 | RAD REPORT ---
EXAM DESCRIPTION: RAD - Chest Single View - 06/11/2021 5:53 am CLINICAL HISTORY: Respiratory failure, COVID positive COMPARISON: June 10June 05 TECHNIQUE: AP portable chest image was obtained 06/11/2021 5:53 am . FINDINGS: Patchy bilateral lung parenchymal opacities are present showing no substantial change from the prior day examination. Heart and vasculature are normal. No measurable pleural effusion and no p neumothorax. No acute bony abnormality seen. No acute aortic findings suspected. IMPRESSION: Bilateral lung parenchymal disease, primarily bibasilar in location, not substantially d ifferent from comparison.
[2021-06-11] MEDS: METHYLPREDNISOLONE 125 MG INJ IV SCH ×2 (10:03→21:12)
[2021-06-11] MEDS: ASCORBIC ACID 500 MG TABLET PO SCH ×4 (10:04→21:12)
[2021-06-11] MEDS: FAMOTIDINE 20 MG TAB PO SCH (10:04)
[2021-06-11] MEDS: THIAMINE HCL 100 MG TABLET PO SCH ×2 (10:04→21:12)
[2021-06-11] MEDS: ASPIRIN 81 MG CHEWABLE TABLET PO SCH (10:04)
[2021-06-11] MEDS: VITAMIN D 5,000 UNIT CAP PO SCH (10:04)
[2021-06-11] MEDS: BARICITINIB 2 MG TABLET PO SCH (10:05)
[2021-06-11 10:56] LABS: Blood Morphology Comment NOT SEEN (NOT SEEN); Platelet Estimate ADEQ; White Blood Cell Scan OK (OK)
--- NOTE | 2021-06-11 12:05 | P.PN ---
Subjective Date of Service: 06/11/21 Chief Complaint: Respiratory failure Patient is improving on BiPAP refused Dobbhoff drinking Ensure Review of Systems General: Weakness Respiratory: Shortness of Breath Physical Examination - Vital Signs Temperature: 97 F Blood Pressure: 119/82 Pulse: 74 Respirations: 24 Pulse Ox (%): 98 - Physical Exam General: Alert, Cooperative - Studies Microbiology Data (last 24 hrs): 06/05/21 10:40 Blood - Blood Aerobic Blood Culture - Final No growth in 5 days. 06/05/21 10:40 Blood - Blood Anaerobic Blood Culture - Final No growth in 5 days. 06/05/21 10:55 Blood - Blood Aerobic Blood Culture - Final No growth in 5 days. 06/05/21 10:55 Blood - Blood Anaerobic Blood Culture - Final No growth in 5 days. Medications List Reviewed: Yes Assessment & Plan - Problems (Diagnosis) (1) Pneumonia due to COVID-19 virus Current Visit: Yes Status: Acute Plan: Respiratory failure patient is improving drinking Ensure refused Dobbhoff lab work reviewed trial of fenofibrate Physician Review: Patient Assessed, Agree with Above Assessment and Plan
[2021-06-11] MEDS: FENOFIBRATE 160 MG TAB PO SCH (14:12)
--- NOTE | 2021-06-11 15:08 | P.PN ---
Subjective Date of Service: 06/11/21 Chief Complaint: Respiratory failure Subjective: Other (Overall stable. Currently on BIPAP) Physical Examination - Vital Signs Temperature: 97 F Blood Pressure: 119/82 Pulse: 74 Respirations: 24 Pulse Ox (%): 98 - Studies Microbiology Data (last 24 hrs): 06/05/21 10:40 Blood - Blood Aerobic Blood Culture - Final No growth in 5 days. 06/05/21 10:40 Blood - Blood Anaerobic Blood Culture - Final No growth in 5 days. 06/05/21 10:55 Blood - Blood Aerobic Blood Culture - Final No growth in 5 days. 06/05/21 10:55 Blood - Blood Anaerobic Blood Culture - Final No growth in 5 days. Medications List Reviewed: Yes Assessment & Plan Discharge Plan: Home Plan to discharge in: Greater than 2 days Physician Review Additional Text: COVID: Positive CXR: COMPARISON: 2018 FINDINGS: Lungs appear mildly hazy. The heart is normal size IMPRESSION: Lungs appear mildly hazy which may indicate a mild pneumonia Renal US: COMPARISON: ABDOMINAL EXAM COMPLETE dated 02/02/2015 FINDINGS: The right kidney measures 9.5 x 4.7 x 4.6 cm. The left kidney measures 9.9 x 5.6 x 4.2 cm. Renal cortical thickness and echogenicity are normal. No hydronephrosis or suspicious renal mass. No bladder wall thickening or mass. No intraluminal stone or mass. IMPRESSION: No hydronephrosis or suspicious renal mass. No other significant findings. Follow up CXR: COMPARISON: June 10, June 05 TECHNIQUE: AP portable chest image was obtained 06/11/2021 5:53 am . FINDINGS: Patchy bilateral lung parenchymal opacities are present showing no substantial change from the prior day examination. Heart and vasculature are normal. No measurable pleural effusion and no pneumothorax. No acute bony abnormality seen. No acute aortic findings suspected. IMPRESSION: Bilateral lung parenchymal disease, primarily bibasilar in location, not substantially different from comparison. Physical exam: GENERAL: The patient is a well-developed, well-nourished, in no apparent distress. Alert and oriented x3. VITAL SIGNS: Reviewed HEENT: Neck supple. LUNGS: Clear anteriorly, currently on BIPAP. HEART: Regular rate and rhythm, no appreciable gallops, rubs, murmurs or extra heart sounds ABDOMEN: Soft, nontender, and nondistended. Positive bowel sounds. No hepatosplenomegaly was noted. EXTREMITIES: Without any cyanosis, clubbing, rash, lesions or peripheral edema. NEUROLOGIC: The patient is oriented to person, place and time. Strength and sensation are grossly intact. Face is symmetric. SKIN: Normal color, turgor and temperature. No ulcerations or rashes noted. Impression: Acute respiratory failure with hypoxia secondary to bilateral Covid pneumonia Acute renal injury Elevated liver function Hyperlipidemia Plan: Acute respiratory failure with hypoxia secondary to bilateral Covid pneumonia: C ontinue IV steroids, supplements and baricitinib. Continue to monitor ferritin and CRP. Patient currently on BiPAP. Respiratory to continue to wean off to maintain sats above 93%. Will discuss with pulmonology on further recommendations. Patient on Xarelto for DVT prophylaxis. Encourage proning, incentive spirometer. Patient now eating and nutrition improved. Acute renal injury: Overall improved. Continue with nephrology recommendation. Elevated liver function: Overall improved. We will monitor this closely. Hyperlipidemia: Continue with medication Code Status: Full Code DVT prophylaxis: Xarelto Advanced Care Planning-30 minutes: Home at discharge Time Spent Managing Pts Care (In Minutes): 55
[2021-06-11] MEDS: RIVAROXABAN 20 MG TABLET PO SCH (18:49)
[2021-06-11] MEDS: MELATONIN 5 MG TABLET PO SCH (21:12)
--- NOTE | 2021-06-12 00:11 | PN ---
Date of Progress Note: 06/11/2021 Chief Complaint: Acute kidney injury with prerenal azotemia complicated by renal hypoperfusion and d ehydration. History Of Present Illness: Patient was found to have hypernatremia and received fluids for volume r esuscitation. Sodium level has improved gradually and patient has COVID pneumonia. She is on BiPAP. Respiratory status has worsened over last 48 hours. Physical Examination: General: Patient is on BiPAP. Vital Signs: Blood pressure 120/70, heart rate 60. Abdomen: Soft, nontender. CV: S1 and S2. Extremities: No edema. Laboratory Data: Sodium 145, potassium 4.5, chloride 112, CO2 28, BUN 51, creatinine 1.08, glucose 1 74. Impression And Plan: Acute kidney injury, prerenal azotemia, high BUN and creatinine ratio due to st eroids. The patient is on methylprednisolone for COVID pneumonia. Monitor electrolytes and monitor magnesium and phosphorus levels. The patient at this point does not require magnesium supplementatio n. The patient may need hypotonic IV fluids if sodium level is going up. Currently, she is short of osvaldo ath and she will have Lasix as needed for congestive heart failure. Patient has hypoxemic respirator y failure. Currently, she is on BiPAP. Hypertension, controlled. Continue to monitor. EB/MODL Voice ID: [id number] Report ID: [id number]
[2021-06-12 05:05] LABS: Absolute Lymphocytes (CBC) 0.6 K/uL (0.7-4.9); Basophils % 0.4 % (0-1.3); Hematocrit 37.5 % (36.0-45.0); Lymphocytes % 6.7 % (15.3-44.8); MPV 8.4 fL (7.6-11.3); RBC Red Blood Cell Count 4.02 M/uL (3.86-4.86)
[2021-06-12 05:29] LABS: C-Reactive Protein 63.5 mg/L (<3.00); Ferritin 1550.2 ng/mL (8-388)
--- NOTE | 2021-06-12 06:06 | P.PN ---
Subjective Date of Service: 06/12/21 Chief Complaint: Respiratory failure Subjective: Other (Overall stable. Currently on 15 L nonrebreather) Physical Examination - Vital Signs Temperature: 96.9 F Blood Pressure: 133/70 Pulse: 63 Respirations: 25 Pulse Ox (%): 98 - Studies Medications List Reviewed: Yes Assessment & Plan Discharge Plan: Other (Home versus long-term care facility placement) Plan to discharge in: Greater than 2 days Physician Review Additional Text: COVID: Positive CXR: COMPARISON: 2018 FINDINGS: Lungs appear mildly hazy. The heart is normal size IMPRESSION: Lungs appear mildly hazy which may indicate a mild pneumonia Renal US: COMPARISON: ABDOMINAL EXAM COMPLETE dated 02/02/2015 FINDINGS: The right kidney measures 9.5 x 4.7 x 4.6 cm. The left kidney measures 9.9 x 5.6 x 4.2 cm. Renal cortical thickness and echogenicity are normal. No hydronephrosis or suspicious renal mass. No bladder wall thickening or mass. No intraluminal stone or mass. IMPRESSION: No hydronephrosis or suspicious renal mass. No other significant findings. Follow up CXR: COMPARISON: June 10, June 05 TECHNIQUE: AP portable chest image was obtained 06/11/2021 5:53 am . FINDINGS: Patchy bilateral lung parenchymal opacities are present showing no substantial change from the prior day examination. Heart and vasculature are normal. No measurable pleural effusion and no pneumothorax. No acute bony abnormality seen. No acute aortic findings suspected. IMPRESSION: Bilateral lung parenchymal disease, primarily bibasilar in location, not substantially different from comparison. Physical exam: GENERAL: The patient is a well-developed, well-nourished, in no apparent distress. Alert and oriented x3. VITAL SIGNS: Reviewed HEENT: Neck supple. LUNGS: Currently on nonrebreather HEART: Regular rate and rhythm, no appreciable gallops, rubs, murmurs or extra heart sounds ABDOMEN: Soft, nontender, and nondistended. Positive bowel sounds. No hepatosplenomegaly was noted. EXTREMITIES: Without any cyanosis, clubbing, rash, lesions or peripheral edema. NEUROLOGIC: The patient is oriented to person, place and time. Strength and sensation are grossly intact. Face is symmetric. SKIN: Normal color, turgor and temperature. No ulcerations or rashes noted. Impression: Acute respiratory failure with hypoxia secondary to bilateral Covid pneumonia Acute renal injury with hypernatremia Elevated liver function Hyperlipidemia Plan: Acute respiratory failure with hypoxia secondary to bilateral Covid pneumonia: Patient now on nonrebreather. CRP and ferritin improved. Overall stable. Continue IV steroids, supplements and baricitinib. Continue to monitor ferritin and CRP. Respiratory to continue to wean off to maintain sats above 93%. Patient on Xarelto for DVT prophylaxis. Encourage proning, incentive spirometer. Patient now eating and nutrition improved. Will monitor closely. Will order physical therapy to ambulate. Acute renal injury with hypernatremia: Overall improved. Encourage oral intake. Will monitor lab closely. Continue with nephrology recommendation. Elevated liver function: Overall improved. We will monitor this closely. Hyperlipidemia: Continue with medication Code Status: Full Code DVT prophylaxis: Xarelto Advanced Care Planning-30 minutes: Likely home at discharge but will need to discuss with family about long-term acute care facility placement. Time Spent Managing Pts Care (In Minutes): 55
--- NOTE | 2021-06-12 08:37 | P.PN ---
Subjective Date of Service: 06/12/21 Chief Complaint: Respiratory failure Oxygenation improving Review of Systems General: Weakness Respiratory: Shortness of Breath Physical Examination - Vital Signs Temperature: 96.9 F Blood Pressure: 133/70 Pulse: 63 Respirations: 25 Pulse Ox (%): 98 - Physical Exam General: Alert, Oriented x3, Cooperative - Studies Medications List Reviewed: Yes Assessment & Plan - Problems (Diagnosis) (1) Pneumonia due to COVID-19 virus Current Visit: Yes Status: Acute Plan: Respiratory failure pending continue to titrate O2 down to a sat of 90% mild hyponatremia mild hyponatremia on maximal therapy Physician Review: Patient Assessed, Agree with Above Assessment and Plan
[2021-06-12] MEDS: VITAMIN D 5,000 UNIT CAP PO SCH (09:00)
[2021-06-12] MEDS: THIAMINE HCL 100 MG TABLET PO SCH ×2 (11:17→20:15)
[2021-06-12] MEDS: ASPIRIN 81 MG CHEWABLE TABLET PO SCH (11:17)
[2021-06-12] MEDS: METHYLPREDNISOLONE 125 MG INJ IV SCH ×2 (11:18→20:14)
[2021-06-12] MEDS: FAMOTIDINE 20 MG TAB PO SCH (11:18)
[2021-06-12] MEDS: BARICITINIB 2 MG TABLET PO SCH (11:18)
[2021-06-12] MEDS: ASCORBIC ACID 500 MG TABLET PO SCH ×4 (11:19→20:14)
[2021-06-12] MEDS: FENOFIBRATE 160 MG TAB PO SCH (11:23)
--- NOTE | 2021-06-12 13:12 | PN ---
Date of Progress Note: 06/12/2021 Subjective: The patient was admitted with COVID pneumonia. The patient has respiratory failure, currently on non-rebreather. The patient had acute kidney injury and hyponatremia. Kidney injury has been recovered. Physical Examination: Vital Signs: Blood pressure 133/70, pulse of 63, afebrile. Chest: Crackles bilateral base. Heart: S1, S2. Systolic murmur. Abdomen: Soft, nontender. Extremities: No edema. Laboratory Data: H and H 12.7/37.5. Sodium 146, potassium 5, bicarb 29, BUN 43, creatinine 1, calcium of 9. Ferritin still elevated 1550. Current Medications: The patient on include; 1. Aspirin. 2. Xarelto. 3. Fenofibrate. 4. Tylenol. 5. Pepcid. 6. Solu-Medrol 80 b.i.d. 7. Vitamin C. 8. Cholecalciferol. 9. Thiamin. Assessment And Plan: 1. Acute kidney injury secondary to prerenal, superimposed with KT inhibitor, recovered, resolved, normal volume. We will continue to monitor. 2. Hypertension, controlled, optimal. Continue current medication. 3. Hypernatremia secondary to depletional, stable. We will continue to monitor. 4. COVID pneumonia as by Pulmonary and Primary. Time spent examining the patient [id number] placing order discussing with the patient reviewing data discussing the case with all of our subspecialty including hospitalist 45 minutes TELLO Voice ID: [id number] Report ID: [id number] EDDIE
[2021-06-12] MEDS: RIVAROXABAN 20 MG TABLET PO SCH (18:26)
[2021-06-12] MEDS: MELATONIN 5 MG TABLET PO SCH (20:14)
[2021-06-12] MEDS: ENSURE HIGH PROTEIN 237 ML CAN PO SCH (20:14)
--- NOTE | 2021-06-13 06:01 | P.PN ---
Subjective Date of Service: 06/13/21 Chief Complaint: Respiratory failure Subjective: Improving (Currently on on 10 L) Physical Examination - Vital Signs Temperature: 97.9 F Blood Pressure: 123/74 Pulse: 67 Respirations: 27 Pulse Ox (%): 90 - Studies Medications List Reviewed: Yes Assessment & Plan Discharge Plan: Home Plan to discharge in: Greater than 2 days Physician Review Additional Text: COVID: Positive CXR: COMPARISON: 2018 FINDINGS: Lungs appear mildly hazy. The heart is normal size IMPRESSION: Lungs appear mildly hazy which may indicate a mild pneumonia Renal US: COMPARISON: ABDOMINAL EXAM COMPLETE dated 02/02/2015 FINDINGS: The right kidney measures 9.5 x 4.7 x 4.6 cm. The left kidney measures 9.9 x 5.6 x 4.2 cm. Renal cortical thickness and echogenicity are normal. No hydronephrosis or suspicious renal mass. No bladder wall thickening or mass. No intraluminal stone or mass. IMPRESSION: No hydronephrosis or suspicious renal mass. No other significant findings. Follow up CXR: COMPARISON: June 10, June 05 TECHNIQUE: AP portable chest image was obtained 06/11/2021 5:53 am . FINDINGS: Patchy bilateral lung parenchymal opacities are present showing no substantial change from the prior day examination. Heart and vasculature are normal. No measurable pleural effusion and no pneumothorax. No acute bony abnormality seen. No acute aortic findings suspected. IMPRESSION: Bilateral lung parenchymal disease, primarily bibasilar in location, not substantially different from comparison. Physical exam: GENERAL: The patient is a well-developed, well-nourished, in no apparent distress. Alert and oriented x3. VITAL SIGNS: Reviewed HEENT: Neck supple. LUNGS: Currently on 10 L HEART: Regular rate and rhythm, no appreciable gallops, rubs, murmurs or extra heart sounds ABDOMEN: Soft, nontender, and nondistended. Positive bowel sounds. No hepatosplenomegaly was noted. EXTREMITIES: Without any cyanosis, clubbing, rash, lesions or peripheral edema. NEUROLOGIC: The patient is oriented to person, place and time. Strength and sensation are grossly intact. Face is symmetric. SKIN: Normal color, turgor and temperature. No ulcerations or rashes noted. Impression: Acute respiratory failure with hypoxia secondary to bilateral Covid pneumonia Acute renal injury with hypernatremia Elevated liver function Hyperlipidemia Plan: Acute respiratory failure with hypoxia secondary to bilateral Covid pneumonia: Patient now down to 10 L. Overall improved. Continue IV steroids, supplements and baricitinib. Continue to monitor ferritin and CRP. Respiratory to continue to wean off to maintain sats above 93%. Patient on Xarelto for DVT prophylaxis. Encourage proning, incentive spirometer. Patient now eating and nutrition improved. Will monitor closely. Will order physical therapy to ambulate. Acute renal injury with hypernatremia: Overall improved. Encourage oral intake. Will monitor lab closely. Continue with nephrology recommendation. Elevated liver function: Overall improved. We will monitor this closely. Hyperlipidemia: Continue with medication Code Status: Full Code DVT prophylaxis: Xarelto Advanced Care Planning-30 minutes: Likely home at discharge but will need to discuss with family about long-term acute care facility placement. Time Spent Managing Pts Care (In Minutes): 55
[2021-06-13 06:13] LABS: Absolute Lymphocytes (CBC) 0.6 K/uL (0.7-4.9); Basophils % 0.2 % (0-1.3); Hematocrit 39.2 % (36.0-45.0); RBC Red Blood Cell Count 4.13 M/uL (3.86-4.86)
[2021-06-13 06:35] LABS: C-Reactive Protein 34.9 mg/L (<3.00); Phosphorus 3.4 mg/dL (2.5-4.9); Potassium 5.1 mmol/L (3.5-5.1)
[2021-06-13 07:08] LABS: Blood Morphology Comment NOT SEEN (NOT SEEN); Platelet Estimate ADEQ; White Blood Cell Scan OK (OK)
[2021-06-13] MEDS: VITAMIN D 5,000 UNIT CAP PO SCH (09:00)
--- NOTE | 2021-06-13 12:07 | P.PN ---
Subjective Date of Service: 06/13/21 Chief Complaint: Respiratory failure Patient is improving very alert responsive Review of Systems General: Weakness Respiratory: Shortness of Breath Physical Examination - Vital Signs Temperature: 98.4 F Blood Pressure: 116/52 Pulse: 66 Respirations: 26 Pulse Ox (%): 92 - Physical Exam General: Alert, Oriented x3, Oriented x1 - Studies Medications List Reviewed: Yes Assessment & Plan - Problems (Diagnosis) (1) Pneumonia due to COVID-19 virus Current Visit: Yes Status: Acute Plan: Patient is improving patient is improving currently stable on 10 L of nasal cannula oxygen and to transfer to the floor on max therapy Physician Review: Patient Assessed, Agree with Above Assessment and Plan
--- NOTE | 2021-06-13 13:28 | PN ---
Date of Progress Note: 06/13/2021 Subjective: The patient was admitted with acute kidney injury, COVID pneumonia. The patient was worsening kidney function, worsening respiratory status. After hydration, kidney function started improving. Currently, the patient is on high-flow, maintaining good oxygenation. Physical Examination: Vital Signs: Blood pressure 116/52, pulse of 66, afebrile. The patient had good urine output of 850. Chest: Faint crackles bilateral base. Heart: S1, S2. Regular. Abdomen: Soft, nontender. Extremity: Trace edema. Neurologic: Alert. No focality. Laboratory Data: WBC 12.7, H and H 13/39. Sodium 145, potassium 5.1, bicarb 28, BUN 43, creatinine of 1, GFR of 62, calcium 9.5, phosphorus 3.4, magnesium of 3. Albumin of 2.5, corrected calcium is 11. Current Medications: The patient on include; 1. Aspirin. 2. Fenofibrate. 3. Ensure. 4. Pepcid. 5. Solu-Medrol. 6. Hydrocodone. 7. Cholecalciferol. 8. Thiamin. Assessment And Plan: 1. Acute kidney injury secondary to prerenal, recovered, resolved. We will maintain the patient on current treatment. Looked to me on the normal volume side. We will continue to follow up. 2. Hypercalcemia, possible induced by prerenal/vitamin D. I am going to decrease vitamin D to 1000 and we will monitor. 3. Hypertension with the presence of acute kidney injury, currently blood pressure has been controlled. Keep holding KT inhibitor. 4. Hypernatremia, resolved. I am going to start the patient on gentle hydration. 5. COVID pneumonia as by Pulmonary. Time spent examining the patient [id number] placing order discussing with the patient reviewing data discussing the case with all of our subspecialty including hospitalist 45 minutes TELLO Voice ID: [id number] Report ID: [id number] EDDIE
[2021-06-13] MEDS: THIAMINE HCL 100 MG TABLET PO SCH ×2 (13:35→20:14)
[2021-06-13] MEDS: METHYLPREDNISOLONE 125 MG INJ IV SCH ×2 (13:35→20:14)
[2021-06-13] MEDS: ASCORBIC ACID 500 MG TABLET PO SCH ×4 (13:36→20:14)
[2021-06-13] MEDS: FENOFIBRATE 160 MG TAB PO SCH (13:36)
[2021-06-13] MEDS: BARICITINIB 2 MG TABLET PO SCH (13:36)
[2021-06-13] MEDS: ASPIRIN 81 MG CHEWABLE TABLET PO SCH (13:36)
[2021-06-13] MEDS: FAMOTIDINE 20 MG TAB PO SCH (13:36)
[2021-06-13] MEDS: ENSURE HIGH PROTEIN 237 ML CAN PO SCH ×2 (13:37→20:13)
[2021-06-13] MEDS: D5W 1,000 ML IV SCH (13:39)
[2021-06-13] MEDS: RIVAROXABAN 20 MG TABLET PO SCH (18:12)
[2021-06-13] MEDS: MELATONIN 5 MG TABLET PO SCH (20:14)
[2021-06-14 04:35] LABS: Absolute Lymphocytes (CBC) 0.5 K/uL (0.7-4.9); Basophils % 0.1 % (0-1.3); Hematocrit 35.9 % (36.0-45.0); RBC Red Blood Cell Count 3.79 M/uL (3.86-4.86)
[2021-06-14 04:49] LABS: Albumin 2.5 g/dL (3.4-5.0); Bilirubin Total 0.5 mg/dL (0.2-1.0); C-Reactive Protein 18.3 mg/L (<3.00); Ferritin 1537.7 ng/mL (8-388); Magnesium 2.7 mg/dL (1.8-2.4); Potassium 5.4 mmol/L (3.5-5.1); Protein, Total 6.7 g/dL (6.4-8.2)
[2021-06-14 05:04] VITALS: BMI 31.4
--- NOTE | 2021-06-14 05:50 | P.PN ---
Subjective Date of Service: 06/14/21 Chief Complaint: Respiratory failure Subjective: Improving (Currently on 9 L per nasal cannula) Physical Examination - Vital Signs Temperature: 96.5 F Blood Pressure: 136/88 Pulse: 80 Respirations: 21 Pulse Ox (%): 97 - Studies Medications List Reviewed: Yes Assessment & Plan Discharge Plan: Home Plan to discharge in: Greater than 2 days Physician Review Additional Text: COVID: Positive CXR: COMPARISON: 2018 FINDINGS: Lungs appear mildly hazy. The heart is normal size IMPRESSION: Lungs appear mildly hazy which may indicate a mild pneumonia Renal US: COMPARISON: ABDOMINAL EXAM COMPLETE dated 02/02/2015 FINDINGS: The right kidney measures 9.5 x 4.7 x 4.6 cm. The left kidney measures 9.9 x 5.6 x 4.2 cm. Renal cortical thickness and echogenicity are normal. No hydronephrosis or suspicious renal mass. No bladder wall thickening or mass. No intraluminal stone or mass. IMPRESSION: No hydronephrosis or suspicious renal mass. No other significant findings. Follow up CXR: COMPARISON: June 10, June 05 TECHNIQUE: AP portable chest image was obtained 06/11/2021 5:53 am . FINDINGS: Patchy bilateral lung parenchymal opacities are present showing no substantial change from the prior day examination. Heart and vasculature are no rmal. No measurable pleural effusion and no pneumothorax. No acute bony abnormality seen. No acute aortic findings suspected. IMPRESSION: Bilateral lung parenchymal disease, primarily bibasilar in l ocation, not substantially different from comparison. Physical exam: GENERAL: The patient is a well-developed, well-nourished, in no apparent distress. Alert and oriented x3. VITAL SIGNS: Reviewed HEENT: Neck supple. LUNGS: Down to 9 L per nasal cannula HEART: Regular rate and rhythm, no appreciable gallops, rubs, murmurs or extra heart sounds ABDOMEN: Soft, nontender, and nondistended. Positive bowel sounds. No hepatosplenomegaly was noted. EXTREMITIES: Without any cyanosis, clubbing, rash, lesions or peripheral edema. NEUROLOGIC: The patient is oriented to person, place and time. Strength and sensation are grossly intact. Face is symmetric. SKIN: Normal color, turgor and temperature. No ulcerations or rashes noted. Impression: Acute respiratory failure with hypoxia secondary to bilateral Covid pneumonia Acute renal injury with hypernatremia Elevated liver function Hyperlipidemia Plan: Acute respiratory failure with hypoxia secondary to bilateral Covid pneumonia: Patient continues to improve. Now down to 9 L. Continue IV steroids, supplements and baricitinib. Continue to monitor ferritin and CRP. Respiratory to continue to wean off to maintain sats above 93%. Patient on Xarelto for DVT prophylaxis. Encourage proning, incentive spirometer. Encourage nutrition. Encourage ambulation with physical therapy. Will transition to the floor today. Acute renal injury with hypernatremia: Overall improved. Encourage oral intake. Will monitor lab closely. Continue with nephrology recommendation. Elevated liver function: Overall improved. We will monitor this closely. Hyperlipidemia: Continue with medication Code Status: Full Code DVT prophylaxis: Xarelto Advanced Care Planning-30 minutes: Likely home at discharge Time Spent Managing Pts Care (In Minutes): 55
--- NOTE | 2021-06-14 06:16 | P.PN ---
Subjective Date of Service: 06/14/21 Chief Complaint: Respiratory failure Subjective: Other (She was transferred out of the ICU today. She reports less SOB today.) Physical Examination - Vital Signs Temperature: 96.5 F Blood Pressure: 136/88 Pulse: 80 Respirations: 21 Pulse Ox (%): 97 - Physical Exam General: Other (Appears as her stated age) HEENT: Normocephalic Neck: Supple Respiratory: Other (Symmetric chest expansion) Cardiovascular: No rubs, No murmurs Gastrointestinal: Soft and benign, Non-distended Musculoskeletal: No clubbing Integumentary: No warmth Neurological: Normal speech, Normal tone Urinary: Other (No bladder distention) - Studies Medications List Reviewed: Yes Assessment And Plan - Plan 1. Acute kidney injury secondary to prerenal, secondary to poor intake, superimposed with KT inhibitor intake. Improved. SCr 1.0. [place] po fluid intake. Monitor renal panel. 2. COVID pneumonia. Mngt per other services. 3. Hypernatremia. Resolved. Encouraged po fluid intake. 4. Anemia. Monitor H/H. 5. Hyperkalemia. Mild. Monitor. Physician Review: Patient Assessed, Agree with Above Assessment and Plan
[2021-06-14] MEDS ORDERED: SOD POLYSTYREN SUL 15 GM/60 ML UCUP PO ONE (08:06)
--- NOTE | 2021-06-14 08:08 | P.PN ---
Subjective Date of Service: 06/14/21 Chief Complaint: Respiratory failure Patient has improved significantly patient has improved significantly now down to 9 L stable to be transferred to the floor Review of Systems General: Weakness Respiratory: Shortness of Breath Physical Examination - Vital Signs Temperature: 96.5 F Blood Pressure: 136/88 Pulse: 80 Respirations: 21 Pulse Ox (%): 97 - Physical Exam General: Alert, Oriented x3, Cooperative - Studies Medications List Reviewed: Yes Assessment & Plan - Problems (Diagnosis) (1) Pneumonia due to COVID-19 virus Current Visit: Yes Status: Acute Plan: Stable to be transferred to the stable to be transferred to the floor add Diflucan hyperkalemia add Kayexalate labs reviewed stable to be transferred to the floor titrate O2 down to 4 titrate O2 down discharge planning Physician Review: Patient Assessed, Agree with Above Assessment and Plan
[2021-06-14] MEDS: FAMOTIDINE 20 MG TAB PO SCH (09:57)
[2021-06-14] MEDS: ASCORBIC ACID 500 MG TABLET PO SCH ×4 (09:57→20:22)
[2021-06-14] MEDS: FENOFIBRATE 160 MG TAB PO SCH (09:57)
[2021-06-14] MEDS: FLUCONAZOLE 100 MG TAB PO SCH (09:57)
[2021-06-14] MEDS: THIAMINE HCL 100 MG TABLET PO SCH ×2 (09:57→20:22)
[2021-06-14] MEDS: ASPIRIN 81 MG CHEWABLE TABLET PO SCH (09:57)
[2021-06-14] MEDS: VITAMIN D 1000 UNIT TAB PO SCH (09:57)
[2021-06-14] MEDS: ENSURE HIGH PROTEIN 237 ML CAN PO SCH ×2 (09:58→20:23)
[2021-06-14] MEDS: D5W 1,000 ML IV SCH (09:59)
[2021-06-14] MEDS: BARICITINIB 2 MG TABLET PO SCH (10:00)
[2021-06-14] MEDS: METHYLPREDNISOLONE 40 MG INJ IV SCH ×2 (10:01→20:21)
[2021-06-14] MEDS: RIVAROXABAN 20 MG TABLET PO SCH (16:13)
[2021-06-14] MEDS: MELATONIN 5 MG TABLET PO SCH (20:21)
[2021-06-15] MEDS: D5W 1,000 ML IV SCH (04:00)
--- NOTE | 2021-06-15 06:03 | P.PN ---
Subjective Date of Service: 06/15/21 Chief Complaint: Respiratory failure Subjective: No new changes Physical Examination - Vital Signs Temperature: 97.6 F Blood Pressure: 121/74 Pulse: 89 Respirations: 18 Pulse Ox (%): 92 - Physical Exam General: Other (appears as her stated age) HEENT: Atraumatic, Normocephalic Neck: Supple Respiratory: Other (symmetric chest expansion) Cardiovascular: No rubs, No murmurs Gastrointestinal: Soft and benign, Non-distended Neurological: Normal speech, Normal tone Urinary: Other (no bladder distention) - Studies Medications List Reviewed: Yes Assessment And Plan - Plan 1. Acute kidney injury secondary to prerenal, secondary to poor intake, superimposed with KT inhibitor intake. Improved. SCr 1.0. [place] po fluid intake. Monitor renal panel. 2. COVID pneumonia. improving. Mngt per other services. 3. Hypernatremia. Resolved. Encouraged po fluid intake. D5 water IV drip discontinued today. 4. Anemia. Monitor H/H. 5. Dispo. Will sign off today. thank you very much for this consult. Physician Review: Patient Assessed, Agree with Above Assessment and Plan
[2021-06-15 06:06] LABS: Absolute Lymphocytes (CBC) 0.8 K/uL (0.7-4.9); Basophils % 0.2 % (0-1.3); Hematocrit 37.4 % (36.0-45.0); Lymphocytes % 6.4 % (15.3-44.8); MPV 8.6 fL (7.6-11.3); RBC Red Blood Cell Count 3.99 M/uL (3.86-4.86)
--- NOTE | 2021-06-15 06:08 | P.PN ---
Subjective Date of Service: 06/15/21 Chief Complaint: Respiratory failure Subjective: Improving Physical Examination - Vital Signs Temperature: 97.6 F Blood Pressure: 121/74 Pulse: 89 Respirations: 18 Pulse Ox (%): 92 - Studies Medications List Reviewed: Yes Assessment & Plan Discharge Plan: Home Plan to discharge in: Greater than 2 days Physician Review Additional Text: COVID: Positive CXR: COMPARISON: 2018 FINDINGS: Lungs appear mildly hazy. The heart is normal size IMPRESSION: Lungs appear mildly hazy which may indicate a mild pneumonia Renal US: COMPARISON: ABDOMINAL EXAM COMPLETE dated 02/02/2015 FINDINGS: The right kidney measures 9.5 x 4.7 x 4.6 cm. The left kidney measures 9.9 x 5.6 x 4.2 cm. Renal cortical thickness and echogenicity are normal. No hydronephrosis or suspicious renal mass. No bladder wall thickening or mass. No intraluminal stone or mass. IMPRESSION: No hydronephrosis or suspicious renal mass. No other significant findings. Follow up CXR: COMPARISON: June 10, June 05 TECHNIQUE: AP portable chest image was obtained 06/11/2021 5:53 am . FINDINGS: Patchy bilateral lung parenchymal opacities are present showing no substantial change from the prior day examination. Heart and vasculature are normal. No measurable pleural effusion and no pneumothorax. No acute bony abnormality seen. No acute aortic findings suspected. IMPRESSION: Bilateral lung parenchymal disease, primarily bibasilar in location, not substantially different from comparison. Physical exam: GENERAL: The patient is a well-developed, well-nourished, in no apparent distress. Alert and oriented x3. VITAL SIGNS: Reviewed HEENT: Neck supple. LUNGS: Down to 8 L HEART: Regular rate and rhythm, no appreciable gallops, rubs, murmurs or extra heart sounds ABDOMEN: Soft, nontender, and nondistended. Positive bowel sounds. No hepatosplenomegaly was noted. EXTREMITIES: Without any cyanosis, clubbing, rash, lesions or peripheral edema. NEUROLOGIC: The patient is oriented to person, place and time. Strength and sensation are grossly intact. Face is symmetric. SKIN: Normal color, turgor and temperature. No ulcerations or rashes noted. Impression: Acute respiratory failure with hypoxia secondary to bilateral Covid pneumonia Acute renal injury with hypernatremia Elevated liver function Hyperlipidemia Plan: Acute respiratory failure with hypoxia secondary to bilateral Covid pneumonia: Patient continues to improve. Patient down to 8 L. Continue IV steroids, supplements and baricitinib. Continue to monitor ferritin and CRP. Respiratory to continue to wean off to maintain sats above 93%. Patient on Xarelto for DVT prophylaxis. Encourage proning, incentive spirometer. Encourage nutrition. Encourage ambulation with physical therapy. Will transition to the floor today. Acute renal injury with hypernatremia: Overall improved. Encourage oral intake. Will monitor lab closely. Continue with nephrology recommendation. IV fluids discontinued Elevated liver function: Overall improved. We will monitor this closely. Hyperlipidemia: Continue with medication Code Status: Full Code DVT prophylaxis: Xarelto Advanced Care Planning-30 minutes: Likely home at discharge Time Spent Managing Pts Care (In Minutes): 55
[2021-06-15 06:27] LABS: Albumin 2.6 g/dL (3.4-5.0); Bilirubin Total 0.7 mg/dL (0.2-1.0); C-Reactive Protein 9.01 mg/L (<3.00); Magnesium 2.4 mg/dL (1.8-2.4)
[2021-06-15 06:28] LABS: Ferritin 1486.1 ng/mL (8-388)
[2021-06-15] MEDS: MELATONIN 5 MG TABLET PO SCH (08:45)
[2021-06-15] MEDS: THIAMINE HCL 100 MG TABLET PO SCH ×2 (08:45→09:57)
[2021-06-15] MEDS: ENSURE HIGH PROTEIN 237 ML CAN PO SCH ×2 (09:00→20:47)
[2021-06-15] MEDS: FLUCONAZOLE 100 MG TAB PO SCH (09:57)
[2021-06-15] MEDS: VITAMIN D 1000 UNIT TAB PO SCH (09:57)
[2021-06-15] MEDS: BARICITINIB 2 MG TABLET PO SCH (09:57)
[2021-06-15] MEDS: ASPIRIN 81 MG CHEWABLE TABLET PO SCH (09:58)
[2021-06-15] MEDS: FAMOTIDINE 20 MG TAB PO SCH (09:58)
[2021-06-15] MEDS: METHYLPREDNISOLONE 40 MG INJ IV SCH ×2 (09:58→20:48)
[2021-06-15] MEDS: FENOFIBRATE 160 MG TAB PO SCH (09:58)
[2021-06-15] MEDS: ASCORBIC ACID 500 MG TABLET PO SCH ×4 (09:58→20:48)
[2021-06-15] MEDS: RIVAROXABAN 20 MG TABLET PO SCH (16:18)
--- NOTE | 2021-06-16 06:13 | P.PN ---
Subjective Date of Service: 06/16/21 Chief Complaint: Respiratory failure Subjective: Improving Physical Examination - Vital Signs Temperature: 97.4 F Blood Pressure: 128/66 Pulse: 62 Respirations: 21 Pulse Ox (%): 93 - Studies Medications List Reviewed: Yes Assessment & Plan Discharge Plan: Home Plan to discharge in: Greater than 2 days Physician Review Additional Text: COVID: Positive CXR: COMPARISON: 2018 FINDINGS: Lungs appear mildly hazy. The heart is normal size IMPRESSION: Lungs appear mildly hazy which may indicate a mild pneumonia Renal US: COMPARISON: ABDOMINAL EXAM COMPLETE dated 02/02/2015 FINDINGS: The right kidney measures 9.5 x 4.7 x 4.6 cm. The left kidney measures 9.9 x 5.6 x 4.2 cm. Renal cortical thickness and echogenicity are normal. No hydronephrosis or suspicious renal mass. No bladder wall thickening or mass. No intraluminal stone or mass. IMPRESSION: No hydronephrosis or suspicious renal mass. No other significant findings. Follow up CXR: COMPARISON: June 10, June 05 TECHNIQUE: AP portable chest image was obtained 06/11/2021 5:53 am . FINDINGS: Patchy bilateral lung parenchymal opacities are present showing no substantial change from the prior day examination. Heart and vasculature are normal. No measurable pleural effusion and no pneumothorax. No acute bony abnormality seen. No acute aortic findings suspected. IMPRESSION: Bilateral lung parenchymal disease, primarily bibasilar in location, not substantially different from comparison. Physical exam: GENERAL: The patient is a well-developed, well-nourished, in no apparent distress. Alert and oriented x3. VITAL SIGNS: Reviewed HEENT: Neck supple. LUNGS: Stable on 8 L HEART: Regular rate and rhythm, no appreciable gallops, rubs, murmurs or extra heart sounds ABDOMEN: Soft, nontender, and nondistended. Positive bowel sounds. No hepatosplenomegaly was noted. EXTREMITIES: Without any cyanosis, clubbing, rash, lesions or peripheral edema. NEUROLOGIC: The patient is oriented to person, place and time. Strength and sensation are grossly intact. Face is symmetric. SKIN: Normal color, turgor and temperature. No ulcerations or rashes noted. Impression: Acute respiratory failure with hypoxia secondary to bilateral Covid pneumonia Acute renal injury with hypernatremia Elevated liver function Hyperlipidemia Plan: Acute respiratory failure with hypoxia secondary to bilateral Covid pneumonia: Patient continues to improve. Patient down to 8 L. Continue IV steroids, supplements and baricitinib. Continue to monitor ferritin and CRP. Respiratory to continue to wean off to maintain sats above 90 %. Patient on Xarelto for DVT prophylaxis. Encourage proning, incentive spirometer. Encourage nutrition. Encourage ambulation with physical therapy. Will transition to the floor today. Acute renal injury with hypernatremia: Overall improved. Encourage oral intake. Will monitor lab closely. Continue with nephrology recommendation. IV fluids discontinued Elevated liver function: Overall improved. We will monitor this closely. Hyperlipidemia: Continue with medication Code Status: Full Code DVT prophylaxis: Xarelto Advanced Care Planning-30 minutes: Likely home at discharge Time Spent Managing Pts Care (In Minutes): 55
[2021-06-16 06:47] LABS: Absolute Lymphocytes (CBC) 0.8 K/uL (0.7-4.9); Basophils % 0.3 % (0-1.3); Hematocrit 35.8 % (36.0-45.0); Lymphocytes % 7.8 % (15.3-44.8); MPV 8.8 fL (7.6-11.3); RBC Red Blood Cell Count 3.78 M/uL (3.86-4.86)
[2021-06-16 07:00] LABS: Albumin 2.6 g/dL (3.4-5.0); Bilirubin Total 0.6 mg/dL (0.2-1.0); C-Reactive Protein 4.88 mg/L (<3.00); Ferritin 1478.4 ng/mL (8-388); Magnesium 2.5 mg/dL (1.8-2.4); Protein, Total 6.5 g/dL (6.4-8.2)
[2021-06-16 07:02] LABS: Potassium 5.7 mmol/L (3.5-5.1)
[2021-06-16] MEDS: FLUCONAZOLE 100 MG TAB PO SCH (09:15)
[2021-06-16] MEDS: BARICITINIB 2 MG TABLET PO SCH (09:15)
[2021-06-16] MEDS: THIAMINE HCL 100 MG TABLET PO SCH ×2 (09:15→20:30)
[2021-06-16] MEDS: ASCORBIC ACID 500 MG TABLET PO SCH ×4 (09:15→20:30)
[2021-06-16] MEDS: METHYLPREDNISOLONE 40 MG INJ IV SCH ×2 (09:15→20:29)
[2021-06-16] MEDS: ASPIRIN 81 MG CHEWABLE TABLET PO SCH (09:16)
[2021-06-16] MEDS: ENSURE HIGH PROTEIN 237 ML CAN PO SCH ×2 (09:16→20:30)
[2021-06-16] MEDS: VITAMIN D 1000 UNIT TAB PO SCH (09:16)
[2021-06-16] MEDS: FENOFIBRATE 160 MG TAB PO SCH (09:16)
[2021-06-16] MEDS: FAMOTIDINE 20 MG TAB PO SCH (09:16)
[2021-06-16] MEDS: FLUDROCORTISONE 0.1 MG TAB PO SCH (11:59)
[2021-06-16] MEDS: RIVAROXABAN 20 MG TABLET PO SCH (17:21)
--- NOTE | 2021-06-16 17:37 | PN ---
Date of Progress Note: 06/16/2021 Chief Complaint: Respiratory failure, COVID pneumonia, acute kidney injury. Subjective: The patient has nonoliguric acute kidney injury secondary to KT inhibitor and prerenal azotemia. The patient is on IV hydration. Serum creatinine level has improved. The patient was fou nd to have hypernatremia and received D5W IV fluid. Review of Systems: No new complaints. Physical Examination: Lungs: Clear to auscultation bilaterally. Heart: S1, S2. Abdomen: Benign. Extremities: No edema. Impression And Plan: 1.Acute kidney injury secondary to prerenal azotemia and hypovolemia superimposed with KT inhibitor effect and serum creatinine has improved. Continue adequate hydration. 2.Hypernatremia due to dehydration and volume depletion. Continue fluids as needed. The patient co mpleted D5W. 3.Anemia. Continue to monitor hemoglobin and hematocrit. 4.Electrolyte abnormalities. The patient was found to have hyperkalemia today. Kayexalate was orde red. Reevaluate potassium level. EB/MODL Voice ID: [id number] Report ID: [id number]
[2021-06-16] MEDS: MELATONIN 5 MG TABLET PO SCH (20:29)
--- NOTE | 2021-06-17 06:04 | P.PN ---
Subjective Date of Service: 06/17/21 Chief Complaint: Respiratory failure Subjective: Improving Physical Examination - Vital Signs Temperature: 97.3 F Blood Pressure: 144/68 Pulse: 65 Respirations: 20 Pulse Ox (%): 92 - Studies Medications List Reviewed: Yes Assessment & Plan Discharge Plan: Home Plan to discharge in: 72 Hours Physician Review Additional Text: COVID: Positive CXR: COMPARISON: 2018 FINDINGS: Lungs appear mildly hazy. The heart is normal size IMPRESSION: Lungs appear mildly hazy which may indicate a mild pneumonia Renal US: COMPARISON: ABDOMINAL EXAM COMPLETE dated 02/02/2015 FINDINGS: The right kidney measures 9.5 x 4.7 x 4.6 cm. The left kidney measures 9.9 x 5.6 x 4.2 cm. Renal cortical thickness and echogenicity are normal. No hydronephrosis or suspicious renal mass. No bladder wall thickening or mass. No intraluminal stone or mass. IMPRESSION: No hydronephrosis or suspicious renal mass. No other significant findings. Follow up CXR: COMPARISON: June 10, June 05 TECHNIQUE: AP portable chest image was obtained 06/11/2021 5:53 am . FINDINGS: Patchy bilateral lung parenchymal opacities are present showing no substantial change from the prior day examination. Heart and vasculature are normal. No measurable pleural effusion and no pneumothorax. No acute bony abnormality seen. No acute aortic findings suspected. IMPRESSION: Bilateral lung parenchymal disease, primarily bibasilar in location, not substantially different from comparison. Physical exam: GENERAL: The patient is a well-developed, well-nourished, in no apparent distress. Alert and oriented x3. VITAL SIGNS: Reviewed HEENT: Neck supple. LUNGS: Stable on 8 L HEART: Regular rate and rhythm, no appreciable gallops, rubs, murmurs or extra heart sounds ABDOMEN: Soft, nontender, and nondistended. Positive bowel sounds. No hepatospl enomegaly was noted. EXTREMITIES: Without any cyanosis, clubbing, rash, lesions or peripheral edema. NEUROLOGIC: The patient is oriented to person, place and time. Strength and sensation are grossly intact. Face is symmetric. SKIN: Normal color, turgor and temperature. No ulcerations or rashes noted. Impression: Acute respiratory failure with hypoxia secondary to bilateral Covid pneumonia Acute renal injury with hypernatremia Elevated liver function Hyperlipidemia Plan: Acute respiratory failure with hypoxia secondary to bilateral Covid pneumonia: Patient continues to improve. Patient down to 8 L. Continue IV steroids, supplements and baricitinib. Continue to monitor ferritin and CRP. Respiratory to continue to wean off to maintain sats above 90 %. Patient on Xarelto for DVT prophylaxis. Encourage proning, incentive spirometer. Encourage nutrition. Encourage ambulation with physical therapy. I will turn the service over to the hospitalist team tomorrow. I will go over plan of care with him. Acute renal injury with hypernatremia: Overall improved. Encourage oral intake. Will monitor lab closely. Continue with nephrology recommendation. IV fluids discontinued Elevated liver function: Overall improved. We will monitor this closely. Hyperlipidemia: Continue with medication Code Status: Full Code DVT prophylaxis: Xarelto Advanced Care Planning-30 minutes: Likely home at discharge Time Spent Managing Pts Care (In Minutes): 55
[2021-06-17] MEDS: ASCORBIC ACID 500 MG TABLET PO SCH ×4 (09:00→20:11)
[2021-06-17] MEDS: ENSURE HIGH PROTEIN 237 ML CAN PO SCH ×2 (09:00→20:11)
[2021-06-17] MEDS: FENOFIBRATE 160 MG TAB PO SCH (14:44)
[2021-06-17] MEDS: BARICITINIB 2 MG TABLET PO SCH (14:44)
[2021-06-17] MEDS: FLUDROCORTISONE 0.1 MG TAB PO SCH (14:44)
[2021-06-17] MEDS: VITAMIN D 1000 UNIT TAB PO SCH (14:45)
[2021-06-17] MEDS: FLUCONAZOLE 100 MG TAB PO SCH (14:45)
[2021-06-17] MEDS: ASPIRIN 81 MG CHEWABLE TABLET PO SCH (14:45)
[2021-06-17] MEDS: THIAMINE HCL 100 MG TABLET PO SCH ×2 (14:46→20:10)
[2021-06-17] MEDS: FAMOTIDINE 20 MG TAB PO SCH (14:46)
[2021-06-17] MEDS: METHYLPREDNISOLONE 40 MG INJ IV SCH ×2 (14:46→20:11)
[2021-06-17] MEDS: RIVAROXABAN 20 MG TABLET PO SCH (17:01)
[2021-06-17] MEDS: MELATONIN 5 MG TABLET PO SCH (20:11)
--- NOTE | 2021-06-18 01:38 | PN ---
Date of Progress Note: 06/17/2021 Chief Complaint: Acute kidney injury, COVID pneumonia, respiratory failure, hypoxemia. Subjective: The patient has nonoliguric acute kidney injury secondary to KT inhibitor and complicat ed by prerenal azotemia. Patient completed IV fluids. Creatinine level has improved. Patient was f ound to have hypernatremia and received D5W for treatment of hypernatremia. Review of Systems: No new complaints. Physical Examination: Lungs: Coarse breath sounds at bases. Heart: S1, S2. Extremities: No edema. Impression And Plan: 1.Acute kidney injury secondary to prerenal azotemia with hypovolemia superimposed with KT inhibito r effect. Serum creatinine level has improved. Continue adequate hydration by mouth as tolerated. 2.Hypernatremia due to dehydration and volume depletion. Continue IV fluids as needed. Monitor flu id balance. Patient completed D5W. Monitor electrolytes. 3.The patient was found to have hyperkalemia, received Kayexalate. Potassium level has improved. M onitor electrolytes closely. EB/MODL Voice ID: [id number] Report ID: [id number]
[2021-06-18 03:48] LABS: Absolute Lymphocytes (CBC) 0.7 K/uL (0.7-4.9); Basophils % 0.4 % (0-1.3); Hematocrit 35.5 % (36.0-45.0); Lymphocytes % 5.5 % (15.3-44.8); MPV 8.4 fL (7.6-11.3); RBC Red Blood Cell Count 3.77 M/uL (3.86-4.86)
[2021-06-18 04:25] LABS: ALT/SGPT 42 U/L (12-78); AST/SGOT 12 U/L (15-37); Albumin 2.6 g/dL (3.4-5.0); Alkaline Phosphatase 48 U/L (45-117); BUN Blood Urea Nitrogen 40 mg/dL (7-18); Bicarbonate 27 mmol/L (21-32); Bilirubin Total 0.4 mg/dL (0.2-1.0); Ferritin 1452.6 ng/mL (8-388); Glucose Level 331 mg/dL (74-106); Magnesium 2.3 mg/dL (1.8-2.4); Protein, Total 6.4 g/dL (6.4-8.2); Sodium Level 138 mmol/L (136-145)
[2021-06-18 04:30] LABS: C-Reactive Protein < 2.90 mg/L (<3.00)
[2021-06-18 04:31] LABS: Potassium 5.6 mmol/L (3.5-5.1)
[2021-06-18] MEDS ORDERED: SOD POLYSTYREN SUL 15 GM/60 ML UCUP PO ONE (04:37)
[2021-06-18 05:05] LABS: Blood Morphology Comment NOT SEEN (NOT SEEN); Platelet Estimate ADEQ
[2021-06-18] MEDS ORDERED: SOD POLYSTYREN SUL 15 GM/60 ML UCUP ONE (06:48)
--- NOTE | 2021-06-18 08:12 | RAD REPORT ---
EXAM DESCRIPTION: [facility] Single View06/18/2021 6:34 am CLINICAL HISTORY: Chest pain COMPARISON: June 11, 2021 FINDINGS: No significant change diffuse bilateral pulmonary opacities. The heart is normal size IMPRESSION: No significant change bilateral pulmonary opacities probably pneumonia
[2021-06-18] MEDS: FAMOTIDINE 20 MG TAB PO SCH (08:20)
[2021-06-18] MEDS: ASCORBIC ACID 500 MG TABLET PO SCH ×4 (08:20→21:02)
[2021-06-18] MEDS: FENOFIBRATE 160 MG TAB PO SCH (08:20)
[2021-06-18] MEDS: THIAMINE HCL 100 MG TABLET PO SCH ×2 (08:20→21:00)
[2021-06-18] MEDS: ASPIRIN 81 MG CHEWABLE TABLET PO SCH (08:20)
[2021-06-18] MEDS: FLUDROCORTISONE 0.1 MG TAB PO SCH (08:20)
[2021-06-18] MEDS: BARICITINIB 2 MG TABLET PO SCH (08:20)
[2021-06-18] MEDS: VITAMIN D 1000 UNIT TAB PO SCH (08:20)
[2021-06-18] MEDS: METHYLPREDNISOLONE 40 MG INJ IV SCH ×2 (08:20→21:00)
[2021-06-18] MEDS: ENSURE HIGH PROTEIN 237 ML CAN PO SCH ×2 (08:21→21:00)
[2021-06-18] MEDS: FLUCONAZOLE 100 MG TAB PO SCH (08:23)
--- NOTE | 2021-06-18 10:39 | RAD REPORT ---
EXAM DESCRIPTION: CT - Stone Protocol - 06/18/2021 10:18 am CLINICAL HISTORY: Abdominal pain. Acute renal failure COMPARISON: None. TECHNIQUE: Computed axial tomography of the abdomen pelvis was obtained without oral or IV contrast. Lack of IV and oral contrast limits evaluation of solid organs, bowel, and vessels. Coronal reformat los images were obtained and reviewed. All CT scans are performed using dose optimization technique as appropriate and may include automated exposure control or mA/KV adjustment according to patient size. FINDINGS: A renal calculus is not seen. An ureteral calculus is not noted. A bladder calculus is not present. No hydronephrosis The liver, spleen, pancreas and adrenals appear grossly normal There is no evidence of diverticulitis. Spondylosis involves the lumbar spine resulting in spinal stenosis. Large amount of stool present throughout the colon. Rectum is mildly distended with stool Tiny umbilical hernia. Hysterectomy Lung bases demonstrate mild to moderate bilateral ground-glass opacities IMPRESSION: Negative for a genitourinary calculus Large amount stool throughout colon Lung bases demonstrate mild to moderate bilateral ground-glass opacities probably Covid pneumonia
[2021-06-18] MEDS: RIVAROXABAN 20 MG TABLET PO SCH (16:04)
[2021-06-18] MEDS: MELATONIN 5 MG TABLET PO SCH (20:59)
[2021-06-18] MEDS ORDERED: LACTULOSE 20 GM/30 ML UCUP PO PRN (21:34)
--- NOTE | 2021-06-18 23:15 | PN ---
Date of Progress Note: 06/18/2021 Chief Complaint: Acute on chronic kidney injury, COVID pneumonia, respiratory failure, hypoxemia. Subjective: The patient has nonoliguric acute kidney injury secondary to KT inhibitor, complicated by prerenal azotemia, nonoliguric ATN. The patient completed IV fluids. Creatinine level has improved. There were high BUN and creatinine initially secondary to hypermetabolic state as well as history of prerenal azotemia. Hypernatremia due to dehydration and was treated with IV fluids. The patient completed D5W, electrolytes, stabilizing, although the patient occasionally has hyperkalemia, treated with Kayexalate. Review of Systems: Noncompliant. Physical Examination: Lungs: Clear bilaterally to auscultation bilaterally. Heart: S1, S2. Abdomen: Soft, benign. Extremities: Slight edema. Imaging: Chest x-ray: No significant change. Bilateral pulmonary opacification, probably COVID pneumonia. Impression And Plan: 1. Hyperkalemia. The patient received Kayexalate. 2. Constipation, which may be contributory to hyperkalemia in this particular case. Plan is to use lactulose to prevent constipation. Continue low-potassium intake to prevent hyperkalemia. 3. Acute kidney injury, chronic kidney disease, nonoliguric urine output. The patient may benefit from Lasix for volemia control as needed. Primarily, the patient had hypovolemia and was treated with IV fluids. Chest x-ray is consistent with COVID pneumonia. Plan is to start low dose of Lasix to control potassium and volemia. EB/MODL Voice ID: [id number] Report ID: [id number] [facility]
[2021-06-19] MEDS: LABETALOL 20 MG/4ML SYRINGE IV PRN (03:33)
[2021-06-19 05:16] LABS: Absolute Lymphocytes (CBC) 0.7 K/uL (0.7-4.9); Basophils % 0.2 % (0-1.3); Hematocrit 37.9 % (36.0-45.0); Lymphocytes % 6.1 % (15.3-44.8); MPV 8.7 fL (7.6-11.3); RBC Red Blood Cell Count 4.02 M/uL (3.86-4.86)
[2021-06-19 05:39] LABS: ALT/SGPT 39 U/L (12-78); AST/SGOT 13 U/L (15-37); Albumin 2.8 g/dL (3.4-5.0); Alkaline Phosphatase 44 U/L (45-117); BUN Blood Urea Nitrogen 39 mg/dL (7-18); Bicarbonate 26 mmol/L (21-32); Bilirubin Total 0.6 mg/dL (0.2-1.0); Ferritin 1625.8 ng/mL (8-388); Glucose Level 252 mg/dL (74-106); Magnesium 2.4 mg/dL (1.8-2.4); Potassium 4.9 mmol/L (3.5-5.1); Protein, Total 6.5 g/dL (6.4-8.2); Sodium Level 140 mmol/L (136-145)
[2021-06-19 05:49] LABS: C-Reactive Protein < 2.90 mg/L (<3.00)
[2021-06-19] MEDS: FLUCONAZOLE 100 MG TAB PO SCH (08:33)
[2021-06-19] MEDS: THIAMINE HCL 100 MG TABLET PO SCH ×2 (08:33→21:23)
[2021-06-19] MEDS: VITAMIN D 1000 UNIT TAB PO SCH (08:33)
[2021-06-19] MEDS: FENOFIBRATE 160 MG TAB PO SCH (08:33)
[2021-06-19] MEDS: ASCORBIC ACID 500 MG TABLET PO SCH ×4 (08:34→21:23)
[2021-06-19] MEDS: FUROSEMIDE 40 MG/4 ML VIAL IV SCH (08:34)
[2021-06-19] MEDS: BARICITINIB 2 MG TABLET PO SCH (08:34)
[2021-06-19] MEDS: ASPIRIN 81 MG CHEWABLE TABLET PO SCH (08:34)
[2021-06-19] MEDS: FAMOTIDINE 20 MG TAB PO SCH (08:34)
[2021-06-19] MEDS: FLUDROCORTISONE 0.1 MG TAB PO SCH (08:35)
[2021-06-19] MEDS: METHYLPREDNISOLONE 40 MG INJ IV SCH ×2 (08:35→21:24)
[2021-06-19] MEDS: ENSURE HIGH PROTEIN 237 ML CAN PO SCH ×2 (09:00→21:00)
--- NOTE | 2021-06-19 09:32 | P.PN ---
Date of Service: 06/18/21 Subjective Patient is improving. Only on 8L of oxygen. Hopefully we can wean her down to 4 L and work on discharge planning. Physical therapy evaluation. Patient may benefit from long term depending on what her strength is like. However, she is not wanting to go to a nursing facility. If her strength is appropriate then maybe we can work on try to discharge her home especially if she has help at home with family. Review of Systems 10-point ROS is otherwise unremarkable Physical Examination - Vital Signs Reviewed - Physical Exam General: Alert, In no apparent distress, Oriented x2-3 Respiratory: Diminished Cardiovascular: Regular rate/rhythm, Normal S1 S2, No murmurs Gastrointestinal: Normal bowel sounds, Soft and benign, Non-distended, No tenderness Musculoskeletal: No clubbing, No swelling, No tenderness Neurological: No focal deficits except for generalized weakness Assessment & Plan - Problems (Diagnosis) (1) Pneumonia due to COVID-19 virus Current Visit: Yes Status: Acute (2) Acute kidney injury Current Visit: Yes Status: Acute (3) Metabolic acidosis Current Visit: Yes Status: Acute (4) Elevated liver enzymes Current Visit: Yes Status: Acute (5) Anorexia Current Visit: Yes Status: Acute (6) Weakness Current Visit: Yes Status: Acute - Plan Continue with plan of care as mentioned below: 1. Continue with IV steroids; taper IV steroids 2. Labs as needed 3. Monitor chemistries 4. O2 per protocol; wall oxygen at 8 L 5. Pulmonary consultation completed 6. Continue with albuterol inhaler therapy 7. GI and DVT prophylaxis Discharge Plan: Home Plan to discharge in: Greater than 2 days - Advance Directives Does patient have a Living Will: No Does patient have a Durable POA for Healthcare: No - Code Status/Comfort Care Code Status Assessed: Yes Code Status: Full Code Physician Review: Patient Assessed, Agree with Above Assessment and Plan Critical Care: No Time Spent Managing PTS Care (In Minutes): 25
--- NOTE | 2021-06-19 14:37 | PN ---
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 The patient had COVID pneumonia. Physical Examination: Vital Signs: Blood pressure 129/85, pulse of 79, afebrile. The patient had good urine output. Chest: Crackles bilateral. Heart: S1, S2. Systolic murmur. Abdomen: Soft, nontender. Extremity: No edema. Neurologic: Alert. No focality. Laboratory Data: WBC 11.9, H and H 12.5/37.9. Sodium 140, potassium 4.9, bicarb 26, BUN 39, creatinine 0.9, calcium 9.1. Assessment And Plan: 1. Acute kidney injury secondary to prerenal and KT inhibitor, recovered, resolved. 2. Hypernatremia, stabilized. 3. Hyperkalemia, resolved. 4. Hypercalcemia secondary to supplement, resolved. Keep holding vitamin D. 5. COVID pneumonia as by primary. Time spent examining the patient [id number] placing order discussing with the patient reviewing data discussing the case with all of our subspecialty including hospitalist 45 minutes TELLO Voice ID: [id number] Report ID: [id number] EDDIE
[2021-06-19] MEDS: PANTOPRAZOLE 40MG TABLET PO SCH (18:05)
[2021-06-19] MEDS: RIVAROXABAN 20 MG TABLET PO SCH (18:05)
[2021-06-19] MEDS: MELATONIN 5 MG TABLET PO SCH (21:23)
[2021-06-20 04:17] LABS: Absolute Lymphocytes (CBC) 0.7 K/uL (0.7-4.9); Basophils % 0.2 % (0-1.3); Hematocrit 38.6 % (36.0-45.0); Lymphocytes % 6.1 % (15.3-44.8); MPV 8.5 fL (7.6-11.3); RBC Red Blood Cell Count 4.09 M/uL (3.86-4.86)
[2021-06-20 05:24] LABS: ALT/SGPT 41 U/L (12-78); AST/SGOT 11 U/L (15-37); Alkaline Phosphatase 42 U/L (45-117); BUN Blood Urea Nitrogen 52 mg/dL (7-18); Bicarbonate 28 mmol/L (21-32); Bilirubin Total 0.6 mg/dL (0.2-1.0); Ferritin 1851.9 ng/mL (8-388); Glucose Level 329 mg/dL (74-106); Magnesium 2.7 mg/dL (1.8-2.4); Potassium 4.8 mmol/L (3.5-5.1); Protein, Total 6.8 g/dL (6.4-8.2); Sodium Level 141 mmol/L (136-145)
[2021-06-20 05:25] LABS: C-Reactive Protein < 2.90 mg/L (<3.00)
[2021-06-20] MEDS: FENOFIBRATE 160 MG TAB PO SCH (08:50)
[2021-06-20] MEDS: METHYLPREDNISOLONE 40 MG INJ IV SCH ×2 (08:51→20:46)
[2021-06-20] MEDS: THIAMINE HCL 100 MG TABLET PO SCH ×2 (08:51→20:42)
[2021-06-20] MEDS: ASPIRIN 81 MG CHEWABLE TABLET PO SCH (08:51)
[2021-06-20] MEDS: VITAMIN D 1000 UNIT TAB PO SCH (08:51)
[2021-06-20] MEDS: FUROSEMIDE 40 MG/4 ML VIAL IV SCH (08:51)
[2021-06-20] MEDS: ASCORBIC ACID 500 MG TABLET PO SCH ×4 (08:52→20:42)
[2021-06-20] MEDS: PANTOPRAZOLE 40MG TABLET PO SCH ×2 (08:52→17:36)
[2021-06-20] MEDS: ENSURE HIGH PROTEIN 237 ML CAN PO SCH ×2 (08:58→20:47)
[2021-06-20] MEDS: FLUCONAZOLE 100 MG TAB PO SCH (08:58)
[2021-06-20] MEDS: FLUDROCORTISONE 0.1 MG TAB PO SCH (08:58)
[2021-06-20] MEDS: BARICITINIB 2 MG TABLET PO SCH (09:00)
--- NOTE | 2021-06-20 14:55 | PN ---
Date of Progress Note: 06/20/2021 Subjective: The patient was admitted with COVID pneumonia. The patient improved, but still requirin g high-flow, but did not require any intubation or BiPAP currently. Physical Examination: Vital Signs: Blood pressure 136/80, pulse of 93, afebrile. The patient had good urine output. Chest: Crackles bilateral. Heart: S1, S2. Regular. Abdomen: Soft, nontender. Extremity: Trace edema. Neurologic: Alert. No focality. Laboratory Data: Chest x-ray; interstitial infiltration, no cardiomegaly. H and H 12.7/38.6. Sodiu m 141, potassium 4.8, bicarb 28, BUN 52, creatinine 1.2, GFR of 54, calcium of 9. Assessment And Plan: 1.Acute kidney injury secondary to over diuresis. We will hold the Lasix for today and we will britany tor. 2.Hypertension, controlled, optimal. 3.Hypernatremia secondary to depletional, poor intake. Hold diuresis for today. 4.Hypercalcemia, resolved. 5.Hyperkalemia, resolved. TELLO Voice ID: [id number] Report ID: [id number]
[2021-06-20] MEDS: RIVAROXABAN 20 MG TABLET PO SCH (17:36)
[2021-06-20] MEDS: MELATONIN 5 MG TABLET PO SCH (20:41)
[2021-06-20] MEDS: ESCITALOPRAM 20 MG TAB PO SCH (20:42)
[2021-06-21] MEDS: ASPIRIN 81 MG CHEWABLE TABLET PO SCH (09:50)
[2021-06-21] MEDS: PANTOPRAZOLE 40MG TABLET PO SCH ×2 (09:50→16:49)
[2021-06-21] MEDS: VITAMIN D 1000 UNIT TAB PO SCH (09:50)
[2021-06-21] MEDS: ASCORBIC ACID 500 MG TABLET PO SCH ×4 (09:50→20:47)
[2021-06-21] MEDS: THIAMINE HCL 100 MG TABLET PO SCH ×2 (09:50→09:52)
[2021-06-21] MEDS: METHYLPREDNISOLONE 40 MG INJ IV SCH ×2 (09:52→20:47)
[2021-06-21] MEDS: ESCITALOPRAM 20 MG TAB PO SCH ×2 (09:53→20:47)
[2021-06-21] MEDS: FLUDROCORTISONE 0.1 MG TAB PO SCH (10:03)
[2021-06-21] MEDS: FLUCONAZOLE 100 MG TAB PO SCH (10:03)
[2021-06-21] MEDS: ENSURE HIGH PROTEIN 237 ML CAN PO SCH ×2 (10:03→20:46)
--- NOTE | 2021-06-21 10:49 | P.PN ---
Date of Service: 06/20/21 Subjective Pt doing well with no new complaints; depression Review of Systems 10-point ROS is otherwise unremarkable Physical Examination - Vital Signs Reviewed - Physical Exam General: Alert, In no apparent distress, Oriented x2-3 Respiratory: Diminished Cardiovascular: Regular rate/rhythm, Normal S1 S2, No murmurs Gastrointestinal: Normal bowel sounds, Soft and benign, Non-distended, No tenderness Musculoskeletal: No clubbing, No swelling, No tenderness Neurological: No focal deficits except for generalized weakness Assessment & Plan - Problems (Diagnosis) (1) Pneumonia due to COVID-19 virus Current Visit: Yes Status: Acute (2) Acute kidney injury Current Visit: Yes Status: Acute (3) Metabolic acidosis Current Visit: Yes Status: Acute (4) Elevated liver enzymes Current Visit: Yes Status: Acute (5) Anorexia Current Visit: Yes Status: Acute (6) Weakness Current Visit: Yes Status: Acute - Plan Continue with plan of care as mentioned below: 1. Continue with IV steroids; 2. Labs as needed 3. Monitor chemistries 4. O2 per protocol; wall oxygen at 6 L 5. Pulmonary consultation completed 6. Continue with albuterol inhaler therapy 7. GI and DVT prophylaxis
--- NOTE | 2021-06-21 13:54 | PN ---
Date of Progress Note: 06/21/2021 Subjective: The patient was admitted with acute kidney injury secondary to COVID nephropathy, poor p erfusion, ATN. The patient had hyperkalemia and hypernatremia. The patient improved, still requirin g high-flow FiO2. Physical Examination: Vital Signs: Blood pressure 127/75, pulse of 89, afebrile. The patient had voiding 4 times. Chest: Faint rales bilateral. Heart: S1, S2. Systolic murmur. Abdomen: Soft, nontender. Extremities: No edema. Neuro: Alert, oriented x3. No focality. Laboratory Data: WBC 11.5, H and H 12.7/38.6. Sodium 141, potassium 4.8, bicarb 28, BUN 52, creatin ine 1.2, GFR of 54, calcium of 9. Current Medications: The patient on include: 1.Aspirin. 2.Fluconazole. 3.Xarelto. 4.Lasix 40. 5.Lactulose. Assessment And Plan: 1.Acute kidney injury secondary to prerenal, secondary to over diuresis, superimposed with KT inhib itor. Currently look to me on the dry side. Keep holding Lasix for now. We will monitor the patien t. 2.Hypernatremia, resolved. Okay sodium level. We will hold Lasix. 3.Hyperkalemia, resolved. 4.Hypercalcemia secondary to dehydration, resolved. 5.Pneumonia secondary to COVID. We will follow up with Pulmonary. VIVIAN/FITZ Voice ID: [id number] Report ID: [id number]
[2021-06-21] MEDS: RIVAROXABAN 20 MG TABLET PO SCH (16:49)
[2021-06-21] MEDS: MELATONIN 5 MG TABLET PO SCH (20:47)
[2021-06-22] MEDS: THIAMINE HCL 100 MG TABLET PO SCH ×2 (09:01→20:14)
[2021-06-22] MEDS: VITAMIN D 1000 UNIT TAB PO SCH (09:01)
[2021-06-22] MEDS: FLUDROCORTISONE 0.1 MG TAB PO SCH (09:01)
[2021-06-22] MEDS: ASPIRIN 81 MG CHEWABLE TABLET PO SCH (09:01)
[2021-06-22] MEDS: METHYLPREDNISOLONE 40 MG INJ IV SCH ×2 (09:02→20:15)
[2021-06-22] MEDS: PANTOPRAZOLE 40MG TABLET PO SCH (09:02)
[2021-06-22] MEDS: ESCITALOPRAM 20 MG TAB PO SCH ×2 (09:02→20:15)
[2021-06-22] MEDS: ASCORBIC ACID 500 MG TABLET PO SCH ×4 (09:02→20:18)
[2021-06-22] MEDS: FLUCONAZOLE 100 MG TAB PO SCH (09:02)
[2021-06-22] MEDS: ENSURE HIGH PROTEIN 237 ML CAN PO SCH ×2 (09:05→20:16)
--- NOTE | 2021-06-22 12:19 | P.PN ---
Subjective Date of Service: 06/22/21 Chief Complaint: Respiratory failure poor appetite Patient feels weak having poor appetite still on 8 to 10 L of nasal cannula oxygen Review of Systems General: Weakness, Unremarkable Physical Examination - Vital Signs Temperature: 97.7 F Blood Pressure: 127/80 Pulse: 95 Respirations: 20 Pulse Ox (%): 90 - Physical Exam General: Alert, Cooperative - Studies Medications List Reviewed: Yes Assessment & Plan - Problems (Diagnosis) (1) Pneumonia due to COVID-19 virus Current Visit: Yes Status: Acute Plan: Respiratory failure on 8 to 10 L of nasal cannula oxygen anorexia poor appetite starting to eat a little bit more vital signs reviewed white count is minimally elevated no change continue with present therapy Physician Review: Patient Assessed, Agree with Above Assessment and Plan
[2021-06-22] MEDS: LABETALOL 20 MG/4ML SYRINGE IV PRN (16:25)
[2021-06-22] MEDS: RIVAROXABAN 20 MG TABLET PO SCH (16:25)
[2021-06-22] MEDS: MELATONIN 5 MG TABLET PO SCH (20:15)
[2021-06-22] MEDS: BENZONATATE 100 MG CAP PO PRN (20:16)
[2021-06-23] MEDS: ENSURE HIGH PROTEIN 237 ML CAN PO SCH ×2 (09:00→20:23)
[2021-06-23] MEDS: FLUCONAZOLE 100 MG TAB PO SCH (09:00)
[2021-06-23] MEDS: ASPIRIN 81 MG CHEWABLE TABLET PO SCH (09:28)
[2021-06-23] MEDS: METHYLPREDNISOLONE 40 MG INJ IV SCH ×2 (09:28→20:21)
[2021-06-23] MEDS: ESCITALOPRAM 20 MG TAB PO SCH ×2 (09:29→20:21)
[2021-06-23] MEDS: THIAMINE HCL 100 MG TABLET PO SCH ×2 (09:29→20:22)
[2021-06-23] MEDS: ASCORBIC ACID 500 MG TABLET PO SCH ×4 (09:29→20:21)
[2021-06-23] MEDS: VITAMIN D 1000 UNIT TAB PO SCH (09:29)
[2021-06-23] MEDS: PANTOPRAZOLE 40MG TABLET PO SCH (09:34)
[2021-06-23] MEDS: FLUDROCORTISONE 0.1 MG TAB PO SCH (09:34)
[2021-06-23] MEDS: LABETALOL 20 MG/4ML SYRINGE IV PRN (09:49)
--- NOTE | 2021-06-23 13:43 | P.PN ---
Date of Service: 06/21/21 Subjective Encouraged patient to eat and get out of bed. Started antidepressant; Review of Systems 10-point ROS is otherwise unremarkable Physical Examination - Vital Signs Reviewed - Physical Exam General: Alert, In no apparent distress, Oriented x2-3 Respiratory: Diminished Cardiovascular: Regular rate/rhythm, Normal S1 S2, No murmurs Gastrointestinal: Normal bowel sounds, Soft and benign, Non-distended, No tenderness Musculoskeletal: No clubbing, No swelling, No tenderness Neurological: No focal deficits except for generalized weakness Assessment & Plan - Problems (Diagnosis) (1) Pneumonia due to COVID-19 virus Current Visit: Yes Status: Acute (2) Acute kidney injury Current Visit: Yes Status: Acute (3) Metabolic acidosis Current Visit: Yes Status: Acute (4) Elevated liver enzymes Current Visit: Yes Status: Acute (5) Depression Current Visit: Yes Status: Acute (6) Weakness Current Visit: Yes Status: Acute - Plan Continue with plan of care as mentioned below: 1. Continue with IV steroids; taper IV steroids 2. Labs as needed 3. Monitor chemistries 4. O2 per protocol; wall oxygen at 8 L 5. Pulmonary consultation completed 6. Continue with albuterol inhaler therapy 7. GI and DVT prophylaxis Discharge Plan: Home Plan to discharge in: Greater than 2 days - Advance Directives Does patient have a Living Will: No Does patient have a Durable POA for Healthcare: No - Code Status/Comfort Care Code Status Assessed: Yes Code Status: Full Code Physician Review: Patient Assessed, Agree with Above Assessment and Plan Critical Care: No Time Spent Managing PTS Care (In Minutes): 25
--- NOTE | 2021-06-23 13:43 | P.PN ---
Date of Service: 06/22/21 Subjective Patient looks to slowly improve; oxygenation stable; Review of Systems 10-point ROS is otherwise unremarkable Physical Examination - Vital Signs Reviewed - Physical Exam General: Alert, In no apparent distress, Oriented x2 Respiratory: Diminished Cardiovascular: Regular rate/rhythm, Normal S1 S2, No murmurs Gastrointestinal: Normal bowel sounds, Soft and benign, Non-distended, No tenderness Musculoskeletal: No clubbing, No swelling, No tenderness Neurological: No focal deficits except for generalized weakness Assessment & Plan - Problems (Diagnosis) (1) Pneumonia due to COVID-19 virus Current Visit: Yes Status: Acute (2) Acute kidney injury Current Visit: Yes Status: Acute (3) Metabolic acidosis Current Visit: Yes Status: Acute (4) Elevated liver enzymes Current Visit: Yes Status: Acute (5) Depression Current Visit: Yes Status: Acute (6) Weakness Current Visit: Yes Status: Acute - Plan Continue with plan of care as mentioned below: 1. Continue with IV steroids; taper IV steroids 2. Labs as needed 3. Monitor chemistries 4. O2 per protocol; wall oxygen at 8 L 5. Pulmonary consultation completed 6. Continue with albuterol inhaler therapy 7. GI and DVT prophylaxis Discharge Plan: Home Plan to discharge in: Greater than 2 days - Advance Directives Does patient have a Living Will: No Does patient have a Durable POA for Healthcare: No - Code Status/Comfort Care Code Status Assessed: Yes Code Status: Full Code Physician Review: Patient Assessed, Agree with Above Assessment and Plan Critical Care: No Time Spent Managing PTS Care (In Minutes): 25
[2021-06-23] MEDS: RIVAROXABAN 20 MG TABLET PO SCH (16:33)
[2021-06-23] MEDS: BENZONATATE 100 MG CAP PO PRN (20:22)
[2021-06-23] MEDS: MELATONIN 5 MG TABLET PO SCH (20:22)
[2021-06-24] MEDS: ENSURE HIGH PROTEIN 237 ML CAN PO SCH ×2 (09:00→21:00)
[2021-06-24] MEDS: LABETALOL 20 MG/4ML SYRINGE IV PRN (10:02)
[2021-06-24] MEDS: THIAMINE HCL 100 MG TABLET PO SCH ×2 (10:03→22:29)
[2021-06-24] MEDS: FLUCONAZOLE 100 MG TAB PO SCH (10:04)
[2021-06-24] MEDS: VITAMIN D 1000 UNIT TAB PO SCH (10:04)
[2021-06-24] MEDS: ASPIRIN 81 MG CHEWABLE TABLET PO SCH (10:04)
[2021-06-24] MEDS: ESCITALOPRAM 20 MG TAB PO SCH ×2 (10:04→22:29)
[2021-06-24] MEDS: FLUDROCORTISONE 0.1 MG TAB PO SCH (10:04)
[2021-06-24] MEDS: PANTOPRAZOLE 40MG TABLET PO SCH (10:04)
[2021-06-24] MEDS: METHYLPREDNISOLONE 40 MG INJ IV SCH (10:05)
[2021-06-24] MEDS: ASCORBIC ACID 500 MG TABLET PO SCH ×4 (10:05→22:29)
--- NOTE | 2021-06-24 11:44 | P.PN ---
Date of Service: 06/23/21 Subjective Patient looks to slowly improve; oxygenation stable; patient's son is at bedside. We were able to get heard injuries anti allow her to eat her favorite meal. Patient looks to be doing better. Need to continue to wean down her oxygen aggressively. Review of Systems 10-point ROS is otherwise unremarkable Physical Examination - Vital Signs Reviewed - Physical Exam General: Alert, In no apparent distress, Oriented x2 Respiratory: Diminished Cardiovascular: Regular rate/rhythm, Normal S1 S2, No murmurs Gastrointestinal: Normal bowel sounds, Soft and benign, Non-distended, No tenderness Musculoskeletal: No clubbing, No swelling, No tenderness Neurological: No focal deficits except for generalized weakness Assessment & Plan - Problems (Diagnosis) (1) Pneumonia due to COVID-19 virus Current Visit: Yes Status: Acute (2) Acute kidney injury Current Visit: Yes Status: Acute (3) Metabolic acidosis Current Visit: Yes Status: Acute (4) Elevated liver enzymes Current Visit: Yes Status: Acute (5) Depression Current Visit: Yes Status: Acute (6) Weakness Current Visit: Yes Status: Acute - Plan Continue with plan of care as mentioned below: 1. Started tapering her steroid dosage. 2. Labs as needed 3. Monitor chemistries 4. O2 per protocol; wall oxygen at 10 L 5. Continue with albuterol inhaler therapy 6. GI and DVT prophylaxis Discharge Plan: Home Plan to discharge in: Greater than 2 days - Advance Directives Does patient have a Living Will: No Does patient have a Durable POA for Healthcare: No - Code Status/Comfort Care Code Status Assessed: Yes Code Status: Full Code Physician Review: Patient Assessed, Agree with Above Assessment and Plan Critical Care: No Time Spent Managing PTS Care (In Minutes): 25
--- NOTE | 2021-06-24 12:45 | P.PN ---
Date of Service: 06/24/21 Subjective Patient's overall doing well with no new complaints. Clinical symptoms continued to show some improvement. She is very depressed at think she will benefit from going to senior care. Unless the family wants to take her home but her oxygen requirements are too great at this time. She needs to start doing more and hopefully the antidepressant continues to help her. I have allowed family does start visiting to try to help with her depression. Review of Systems 10-point ROS is otherwise unremarkable Physical Examination - Vital Signs Reviewed - Physical Exam General: Alert, In no apparent distress, Oriented x 2-3; flat affect Respiratory: Diminished Cardiovascular: Regular rate/rhythm, Normal S1 S2, No murmurs Gastrointestinal: Normal bowel sounds, Soft and benign, Non-distended, No tenderness Musculoskeletal: No clubbing, No swelling, No tenderness Neurological: No focal deficits except for generalized weakness Assessment & Plan - Problems (Diagnosis) (1) Pneumonia due to COVID-19 virus Current Visit: Yes Status: Acute (2) Acute kidney injury Current Visit: Yes Status: Acute (3) Metabolic acidosis Current Visit: Yes Status: Acute (4) Elevated liver enzymes Current Visit: Yes Status: Acute (5) Depression Current Visit: Yes Status: Acute (6) Weakness Current Visit: Yes Status: Acute - Plan Continue with plan of care as mentioned below: 1. Continue with IV steroids; taper IV steroids 2. Labs as needed 3. Monitor chemistries 4. O2 per protocol; on high flow 5. Continue with pulmonary follow-up 6. Continue with albuterol inhaler therapy 7. GI and DVT prophylaxis
[2021-06-24 14:24] LABS: Absolute Lymphocytes (CBC) 0.5 K/uL (0.7-4.9); Hematocrit 40.7 % (36.0-45.0); Lymphocytes % 3.2 % (15.3-44.8); MPV 8.7 fL (7.6-11.3); RBC Red Blood Cell Count 4.26 M/uL (3.86-4.86)
[2021-06-24 14:58] LABS: Magnesium 3.6 mg/dL (1.8-2.4); Potassium 5.5 mmol/L (3.5-5.1)
[2021-06-24] MEDS ORDERED: CEFTRIAXONE 1 GM/NS 50 ML 1 GM/50 ML BAG IV SCH (16:09)
[2021-06-24] MEDS ORDERED: NA CHLORIDE 0.9% 250 ML IV ONE (16:14)
[2021-06-24 16:37] LABS: Magnesium 3.8 mg/dL (1.8-2.4)
[2021-06-24] MEDS: CEFTRIAXONE/SWI 1gm 1 GM/10 ML SYR IV SCH ×2 (16:38→22:29)
[2021-06-24] MEDS: RIVAROXABAN 20 MG TABLET PO SCH (16:41)
[2021-06-24 17:10] LABS: Blood Morphology Comment NOT SEEN (NOT SEEN); Platelet Estimate ADEQ; White Blood Cell Scan OK (OK)
[2021-06-24 20:45] LABS: Urine Appearance CLOUDY (Clear); Urine Bilirubin NEGATIVE (Negative); Urine Blood 2+ (Negative); Urine Color DK YELLOW (Yellow); Urine Glucose 2+ (Negative); Urine Protein TRACE (Negative)
[2021-06-24 20:49] LABS: Urine Microscopic Reflex ORDER UMIC
[2021-06-24 21:36] LABS: Urine Bacteria >50 /HPF (<20); Urine Yeast MANY (NONE SEEN)
[2021-06-24 21:44] LABS: Potassium 5.3 mmol/L (3.5-5.1)
[2021-06-24] MEDS: BENZONATATE 100 MG CAP PO PRN (22:30)
[2021-06-24] MEDS: predniSONE 20 MG TAB PO SCH (22:30)
[2021-06-24] MEDS: MELATONIN 5 MG TABLET PO SCH (22:30)
[2021-06-25 04:56] LABS: C-Reactive Protein 23.5 mg/L (<3.00); Phosphorus 6.6 mg/dL (2.5-4.9); Potassium 5.2 mmol/L (3.5-5.1)
[2021-06-25 05:29] LABS: Magnesium 3.7 mg/dL (1.8-2.4)
[2021-06-25] MEDS ORDERED: GLUCAGON 1 MG/VIAL IM PRN (06:00)
[2021-06-25] MEDS ORDERED: D50W 25 GM/50 ML SYRINGE IV PRN (06:00)
--- NOTE | 2021-06-25 06:11 | P.PN ---
Subjective Date of Service: 06/25/21 Chief Complaint: Respiratory failure poor appetite Subjective: Other (Nurses report poor appetite and poor intake) Physical Examination - Vital Signs Temperature: 97.2 F Blood Pressure: 123/87 Pulse: 94 Respirations: 19 Pulse Ox (%): 90 - Studies Medications List Reviewed: Yes Assessment & Plan Discharge Plan: Home Plan to discharge in: Greater than 2 days Physician Review Additional Text: COVID: Positive CXR: COMPARISON: 2018 FINDINGS: Lungs appear mildly hazy. The heart is normal size IMPRESSION: Lungs appear mildly hazy which may indicate a mild pneumonia Renal US: COMPARISON: ABDOMINAL EXAM COMPLETE dated 02/02/2015 FINDINGS: The right kidney measures 9.5 x 4.7 x 4.6 cm. The left kidney measures 9.9 x 5.6 x 4.2 cm. Renal cortical thickness and echogenicity are normal. No hydronephrosis or suspicious renal mass. No bladder wall thickening or mass. No intraluminal stone or mass. IMPRESSION: No hydronephrosis or suspicious renal mass. No other significant findings. Follow up CXR: COMPARISON: June 10, June 05 TECHNIQUE: AP portable chest image was obtained 06/11/2021 5:53 am . FINDINGS: Patchy bilateral lung parenchymal opacities are present showing no substantial change from the prior day examination. Heart and vasculature are normal. No measurable pleural effusion and no pneumothorax. No acute bony abnormality seen. No acute aortic findings suspected. IMPRESSION: Bilateral lung parenchymal disease, primarily bibasilar in location, not substantially different from comparison. Physical exam: GENERAL: The patient is a well-developed, well-nourished, in no apparent distress. Alert and oriented x3. VITAL SIGNS: Reviewed HEENT: Neck supple. LUNGS: Stable on 8 L HEART: Regular rate and rhythm, no appreciable gallops, rubs, murmurs or extra heart sounds ABDOMEN: Soft, nontender, and nondistended. Positive bowel sounds. No hepatosplenomegaly was noted. EXTREMITIES: Without any cyanosis, clubbing, rash, lesions or peripheral edema. NEUROLOGIC: The patient is oriented to person, place and time. Strength and sensation are grossly intact. Face is symmetric. SKIN: Normal color, turgor and temperature. No ulcerations or rashes noted. Impression: Acute respiratory failure with hypoxia secondary to bilateral Covid pneumonia Acute renal injury with hypernatremia, hyperkalemia Elevated liver function UTI Depression Plan: Acute respiratory failure with hypoxia secondary to bilateral Covid pneumonia: Patient continues to slowly improve. Currently on 10 L per nasal cannula. Continue IV steroids and treatment. Patient with poor oral intake and acute renal injury. Restart IV fluids. Encourage ambulation. Encourage incentive spirometer. Acute renal injury with hypernatremia, hyperkalemia: Restart IV fluids. Will monitor and adjust appropriately. Elevated liver function: Overall improved. We will monitor this closely. UTI: Patient started on Rocephin. Await urine culture results Depression: We will adjust Lexapro Code Status: Full Code DVT prophylaxis: Xarelto Advanced Care Planning-30 minutes: Likely home at discharge Time Spent Managing Pts Care (In Minutes): 55
--- NOTE | 2021-06-25 07:15 | RAD REPORT ---
EXAM DESCRIPTION: RAD - Chest Single View - 06/25/2021 4:48 am CLINICAL HISTORY: pneumonia COMPARISON: Chest Single View dated 06/18/2021; Chest Single View dated 06/11/2021; Chest Single View d ated 06/10/2021; Chest Single View dated 06/05/2021 FINDINGS: Lines: None. Lungs: Improved lung volumes with residual bilateral airspace disease that is predominantly in the tiny ng bases. Pleural: No significant pleural effusions or pneumothorax. Cardiac: Mild cardiomegaly. Bones: No acute fractures. Other: IMPRESSION: Improved lung volumes but otherwise similar appearance of airspace opacities predominant ly basilar in distribution.
[2021-06-25] MEDS: INSULIN -REGULAR HUMAN 50 UNIT/0.5 ML ML SQ SCH ×4 (07:27→22:12)
[2021-06-25] MEDS: FLUDROCORTISONE 0.1 MG TAB PO SCH (08:06)
[2021-06-25] MEDS: ESCITALOPRAM 20 MG TAB PO SCH (08:07)
[2021-06-25] MEDS: THIAMINE HCL 100 MG TABLET PO SCH ×2 (08:07→22:10)
[2021-06-25] MEDS: ASPIRIN 81 MG CHEWABLE TABLET PO SCH (08:07)
[2021-06-25] MEDS: VITAMIN D 1000 UNIT TAB PO SCH (08:07)
[2021-06-25] MEDS: ASCORBIC ACID 500 MG TABLET PO SCH ×4 (08:07→22:11)
[2021-06-25] MEDS: predniSONE 20 MG TAB PO SCH ×2 (08:07→22:10)
[2021-06-25] MEDS: ENSURE HIGH PROTEIN 237 ML CAN PO SCH ×2 (08:08→21:00)
[2021-06-25] MEDS: CEFTRIAXONE/SWI 1gm 1 GM/10 ML SYR IV SCH ×2 (08:32→22:11)
[2021-06-25] MEDS: FLUCONAZOLE 100 MG TAB PO SCH (09:00)
[2021-06-25] MEDS: NA CHLORIDE 0.9% 1,000 ML IV SCH (10:44)
[2021-06-25] MEDS ORDERED: FUROSEMIDE 40 MG/4 ML VIAL IV ONE (14:25)
[2021-06-25] MEDS ORDERED: FUROSEMIDE 40 MG TABLET PO ONE (15:18)
[2021-06-25] MEDS: RIVAROXABAN 20 MG TABLET PO SCH (18:04)
[2021-06-25] MEDS ORDERED: CIPROFLOXACIN HCL 250 MG TAB PO SCH (21:00)
[2021-06-25] MEDS: MELATONIN 5 MG TABLET PO SCH (22:11)
[2021-06-26] MEDS: NA CHLORIDE 0.9% 1,000 ML IV SCH (00:53)
--- NOTE | 2021-06-26 01:20 | PN ---
Date of Progress Note: 06/25/2021 Chief Complaint: Acute kidney injury, nonoliguric. History Of Present Illness: Patient and was admitted to the hospital for COVID pneumonia. Patient d eveloped acute kidney injury secondary to renal hypoperfusion resulted in ATN, nonoliguric. Renal fu nction primarily improved, over last few days renal function has declined. The patient has had poor p.o. intake and is started on IV fluids for hydration. Review of Systems: Patient denies chest pain, fever, chills. Physical Examination: Lungs: Few crackles at the bases. Heart: S1, S2. Abdomen: Soft, benign. Extremities: No edema. Laboratory Data: Hemoglobin 13.2, platelets count is 165,000, WBC 14.4. Chemistry showed sodium 138 , potassium 5.2, glucose 471, chloride 104, CO2 23, BUN 121, creatinine 1.95. Creatinine increased f rom 1.2. Impression And Plan: 1.Acute kidney injury associated with borderline hyperkalemia. Patient was started on IV fluids. T he patient will have Lasix as needed to treat hyperkalemia. Monitor renal function. 2.Hyperglycemia. Continue insulin treatment. 3.Patient is undergoing workup for urinary tract infection. Pending urine culture. Start Cipro for possible urinary tract infection. Previously, blood culture showed no growth. 4.COVID pneumonia per primary team. EB/MODL Voice ID: [id number] Report ID: [id number]
[2021-06-26 04:20] LABS: Magnesium 3.3 mg/dL (1.8-2.4); Phosphorus 4.8 mg/dL (2.5-4.9); Potassium 4.1 mmol/L (3.5-5.1)
--- NOTE | 2021-06-26 06:13 | P.PN ---
Subjective Date of Service: 06/26/21 Chief Complaint: Respiratory failure poor appetite Subjective: Other (Stable on 10 L) Physical Examination - Vital Signs Temperature: 97.1 F Blood Pressure: 127/79 Pulse: 100 Respirations: 17 Pulse Ox (%): 94 - Studies Medications List Reviewed: Yes Assessment & Plan Discharge Plan: Other (Skilled placement) Plan to discharge in: Greater than 2 days Physician Review Additional Text: COVID: Positive CXR: COMPARISON: 2018 FINDINGS: Lungs appear mildly hazy. The heart is normal size IMPRESSION: Lungs appear mildly hazy which may indicate a mild pneumonia Renal US: COMPARISON: ABDOMINAL EXAM COMPLETE dated 02/02/2015 FINDINGS: The right kidney measures 9.5 x 4.7 x 4.6 cm. The left kidney measures 9.9 x 5.6 x 4.2 cm. Renal cortical thickness and echogenicity are normal. No hydronephrosis or suspicious renal mass. No bladder wall thickening or mass. No intraluminal stone or mass. IMPRESSION: No hydronephrosis or suspicious renal mass. No other significant findings. Follow up CXR: COMPARISON: June 10, June 05 TECHNIQUE: AP portable chest image was obtained 06/11/2021 5:53 am . FINDINGS: Patchy bilateral lung parenchymal opacities are present showing no substantial change from the prior day examination. Heart and vasculature are normal. No measurable pleural effusion and no pneumothorax. No acute bony abnormality seen. No acute aortic findings suspected. IMPRESSION: Bilateral lung parenchymal disease, primarily bibasilar in location, not substantially different from comparison. Physical exam: GENERAL: The patient is a well-developed, well-nourished, in no apparent distres s. Alert and oriented x3. VITAL SIGNS: Reviewed HEENT: Neck supple. LUNGS: Stable on 10 L HEART: Regular rate and rhythm, no appreciable gallops, rubs, murmurs or extra heart sounds ABDOMEN: Soft, nontender, and nondistended. Positive bowel sounds. No hepatosplenomegaly was noted. EXTREMITIES: Without any cyanosis, clubbing, rash, lesions or peripheral edema. NEUROLOGIC: The patient is oriented to person, place and time. Strength and sensation are grossly intact. Face is symmetric. SKIN: Normal color, turgor and temperature. No ulcerations or rashes noted. Impression: Acute respiratory failure with hypoxia secondary to bilateral Covid pneumonia Acute renal injury with hypernatremia, hyperkalemia Elevated liver function UTI Depression Plan: Acute respiratory failure with hypoxia secondary to bilateral Covid pneumonia: Patient appears stable. Currently on 10 L. Continue IV steroids. Continue to wean off to maintain sats above 90%. She received IV fluids yesterday due to acute renal injury with hypernatremia and hyperkalemia. This has improved. Decrease IV fluids and encourage oral intake. Case discussed with daughter at length about the possibility of skilled placement. We will again readdress this issue about skilled placement or long-term acute care facility. Acute renal injury with hypernatremia, hyperkalemia: Continue IV fluids. Await further recommendations from nephrology will monitor and adjust appropriately. Elevated liver function: Overall improved. We will monitor this closely. UTI: Continue Rocephin. Await urine culture results Depression: Continue Lexapro Code Status: Full Code DVT prophylaxis: Xarelto Advanced Care Planning-30 minutes: Need to consider skilled placement or long-term acute care facility. Will discuss with family. Time Spent Managing Pts Care (In Minutes): 55
[2021-06-26] MEDS ORDERED: FUROSEMIDE 40 MG/4 ML VIAL IV SCH (09:00)
[2021-06-26] MEDS: ENSURE HIGH PROTEIN 237 ML CAN PO SCH ×2 (09:00→21:00)
[2021-06-26] MEDS: D5 0.45 NS 1,000 ML IV SCH (10:23)
[2021-06-26] MEDS: ASCORBIC ACID 500 MG TABLET PO SCH ×4 (10:23→21:38)
[2021-06-26] MEDS: THIAMINE HCL 100 MG TABLET PO SCH ×2 (10:24→21:38)
[2021-06-26] MEDS: predniSONE 20 MG TAB PO SCH ×2 (10:24→21:39)
[2021-06-26] MEDS: ESCITALOPRAM 20 MG TAB PO SCH (10:24)
[2021-06-26] MEDS: PANTOPRAZOLE 40MG TABLET PO SCH (10:24)
[2021-06-26] MEDS: VITAMIN D 1000 UNIT TAB PO SCH (10:24)
[2021-06-26] MEDS: INSULIN -REGULAR HUMAN 50 UNIT/0.5 ML ML SQ SCH ×4 (10:25→21:39)
[2021-06-26] MEDS: ASPIRIN 81 MG CHEWABLE TABLET PO SCH (10:25)
[2021-06-26] MEDS: CEFTRIAXONE/SWI 1gm 1 GM/10 ML SYR IV SCH ×2 (10:25→21:39)
--- NOTE | 2021-06-26 12:47 | PN ---
Date of Progress Note: 06/26/2021 Subjective: The patient had admitted with COVID pneumonia, respiratory failure, has acute kidney inj ury secondary to over diuresis. Physical Examination: Vital Signs: When I saw the patient; blood pressure 127/79, pulse of 100, afebrile. The patient had good urine output. Voiding. Chest: Faint rales bilateral. Heart: S1, S2. Regular. Abdomen: Soft, nontender. Extremity: Trace edema. Neuro: Alert. No focality. Laboratory Data: WBC 14.4, H and H 13.2/40.7. Sodium 148, potassium 4.1, bicarb 25, BUN 93, creatin ine 1.3, calcium 8.8, phosphorus 4.8, magnesium 3.3. Current Medications: The patient on include; 1.Aspirin. 2.Ceftriaxone. 3.Xarelto. 4.Lasix. 5.Lactulose. 6.Zofran. 7.Pantoprazole. Assessment And Plan: 1.Acute kidney injury secondary to prerenal, supported with severe disproportion in the BUN and crea tinine, looked to me the patient on the normal volume currently. I am going to hold on the Lasix and we will monitor the patient. 2.Hypertension, controlled, optimal. Continue current treatment. 3.Hypercalcemia, resolve. 4.Hyperkalemia, resolved. 5.Disproportion in BUN and creatinine secondary to catabolic and prerenal. Hold the Lasix and we will monitor. 6.COVID pneumonia as by primary. VIVIAN/FITZ Voice ID: [id number] Report ID: [id number]
[2021-06-26] MEDS: RIVAROXABAN 20 MG TABLET PO SCH (17:11)
[2021-06-26] MEDS: MELATONIN 5 MG TABLET PO SCH (21:38)
[2021-06-27] MEDS: D5 0.45 NS 1,000 ML IV SCH ×2 (02:07→10:25)
[2021-06-27 04:12] LABS: C-Reactive Protein 13.9 mg/L (<3.00); Magnesium 2.8 mg/dL (1.8-2.4); Phosphorus 3.2 mg/dL (2.5-4.9); Potassium 4.3 mmol/L (3.5-5.1)
--- NOTE | 2021-06-27 06:09 | P.PN ---
Subjective Date of Service: 06/27/21 Chief Complaint: Respiratory failure poor appetite Subjective: Other (Respiratory-fabian patient stable currently on 10 L. Patient had some diarrhea today. Patient eating a little bit better.) Physical Examination - Vital Signs Temperature: 97.2 F Blood Pressure: 133/66 Pulse: 84 Respirations: 18 Pulse Ox (%): 98 - Studies Medications List Reviewed: Yes Assessment & Plan Discharge Plan: Other (Long-term acute care facility versus skilled placement) Plan to discharge in: Greater than 2 days Physician Review Additional Text: COVID: Positive CXR: COMPARISON: 2018 FINDINGS: Lungs appear mildly hazy. The heart is normal size IMPRESSION: Lungs appear mildly hazy which may indicate a mild pneumonia Renal US: COMPARISON: ABDOMINAL EXAM COMPLETE dated 02/02/2015 FINDINGS: The right kidney measures 9.5 x 4.7 x 4.6 cm. The left kidney measures 9.9 x 5.6 x 4.2 cm. Renal cortical thickness and echogenicity are normal. No hydronephrosis or suspicious renal mass. No bladder wall thickening or mass. No intraluminal stone or mass. IMPRESSION: No hydronephrosis or suspicious renal mass. No other significant findings. Follow up CXR 06/25/2021: COMPARISON: Chest Single View dated 06/18/2021; Chest Single View dated 06/11/2021; Chest Single View dated 06/10/2021; Chest Single View dated 06/05/2021 FINDINGS: Lines: None. Lungs: Improved lung volumes with residual bilateral airspace disease that is predominantly in the lung bases. Pleural: No significant pleural effusions or pneumothorax. Cardiac: Mild cardiomegaly. Bones: No acute fractures. IMPRESSION: Improved lung volumes but otherwise similar appearance of airspace opacities predominantly basilar in distribution. Physical exam: GENERAL: The patient is a well-developed, well-nourished, in no apparent distress. Alert and oriented x3. VITAL SIGNS: Reviewed HEENT: Neck supple. LUNGS: Stable on 10 L HEART: Regular rate and rhythm, no appreciable gallops, rubs, murmurs or extra heart sounds ABDOMEN: Soft, nontender, and nondistended. Positive bowel sounds. No hepatosplenomegaly was noted. EXTREMITIES: Without any cyanosis, clubbing, rash, lesions or peripheral edema. NEUROLOGIC: The patient is oriented to person, place and time. Strength and sensation are grossly intact. Face is symmetric. SKIN: Normal color, turgor and temperature. No ulcerations or rashes noted. Impression: Acute respiratory failure with hypoxia secondary to bilateral Covid pneumonia Acute renal injury with hypernatremia, hyperkalemia Diarrhea Elevated liver function UTI Depression Hypertension Diabetes mellitus type 2 with hyperglycemia Plan: Acute respiratory failure with hypoxia secondary to bilateral Covid pneumonia: Patient slowly improving. Stable on 10 L per nasal cannula. Continue IV fluids due to acute renal injury and hypernatremia. Patient taking better oral intake. Continue to encourage oral intake. Physical therapy and Occupational Therapy to continue to evaluate. Continue to wean off oxygen to maintain sats above 90%. Continue oral steroids and supplementation. Patient with diarrhea today. Will check for C. difficile colitis. Will start IV Flagyl. Spoke with daughter at length yesterday about the possibility of long-term acute care facility placement versus skilled placement. She is in agreement but would like to discuss with family further. We will have family discussion again today to address plan of care and readdress CODE STATUS. Acute renal injury with hypernatremia, hyperkalemia: Continue IV fluids. Case discussed with nephrology yesterday. Encourage oral intake. If taking good oral intake then can Hep-Lock IV. Diarrhea: Patient with diarrhea today. Will check for C. difficile colitis. Will provide lactobacillus. Will also start IV Flagyl. Elevated liver function: Overall improved. We will monitor this closely. UTI: Urine culture showed mixed capri. Discontinue IV Rocephin. No UTI at this time. Depression: Continue Lexapro HTN: Patient remains off lisinopril. Blood pressure stable off medication DM Type 2 with Hyperglycemia: A1c 8.5. Continue with Accuchecks and sliding scale. Continue to monitor closely. Code Status: Full Code DVT prophylaxis: Xarelto Advanced Care Planning-30 minutes: Need to consider skilled placement or long-term acute care facility. Will discuss with family. Time Spent Managing Pts Care (In Minutes): 55
[2021-06-27 08:02] LABS: Absolute Lymphocytes (CBC) 0.7 K/uL (0.7-4.9); Basophils % 0.2 % (0-1.3); Lymphocytes % 8.3 % (15.3-44.8); MPV 9.1 fL (7.6-11.3); RBC Red Blood Cell Count 3.65 M/uL (3.86-4.86)
[2021-06-27 08:16] LABS: C-Reactive Protein 12.4 mg/L (<3.00); Ferritin 1830.4 ng/mL (8-388)
[2021-06-27 08:51] LABS: Blood Morphology Comment NOT SEEN (NOT SEEN); Platelet Estimate DECR
[2021-06-27] MEDS: ENSURE HIGH PROTEIN 237 ML CAN PO SCH ×2 (09:00→21:00)
[2021-06-27] MEDS: METRONIDAZOLE 500mg IVPB 500 MG/100 ML BAG IV SCH ×2 (09:25→17:12)
[2021-06-27] MEDS: predniSONE 20 MG TAB PO SCH ×2 (09:26→21:35)
[2021-06-27] MEDS: THIAMINE HCL 100 MG TABLET PO SCH ×2 (09:26→21:35)
[2021-06-27] MEDS: ESCITALOPRAM 20 MG TAB PO SCH (09:26)
[2021-06-27] MEDS: ASPIRIN 81 MG CHEWABLE TABLET PO SCH (09:26)
[2021-06-27] MEDS: VITAMIN D 1000 UNIT TAB PO SCH (09:26)
[2021-06-27] MEDS: PANTOPRAZOLE 40MG TABLET PO SCH (09:26)
[2021-06-27] MEDS: ASCORBIC ACID 500 MG TABLET PO SCH ×4 (09:26→21:35)
[2021-06-27] MEDS: LACTOBACILLUS/ACIDOPHILUS TAB PO SCH ×3 (09:26→21:35)
[2021-06-27] MEDS: INSULIN -REGULAR HUMAN 50 UNIT/0.5 ML ML SQ SCH ×4 (09:31→21:35)
[2021-06-27 11:37] LABS: Urine Appearance CLOUDY (Clear); Urine Bilirubin NEGATIVE (Negative); Urine Blood 3+ (Negative); Urine Color YELLOW (Yellow); Urine Glucose NEGATIVE (Negative); Urine Protein TRACE (Negative); Urine Urobilinogen 0.2 mg/dL (0.2-1.0); Urine pH 5.5 (5.0-7.0)
[2021-06-27 12:31] LABS: Urine Bacteria <20 /HPF (<20); Urine Microscopic Reflex ORDER UMIC; Urine Mucus 1+ /HPF (NONE SEEN); Urine RBC 20-50 /HPF (NONE SEEN); Urine Yeast MANY (NONE SEEN)
--- NOTE | 2021-06-27 12:53 | PN ---
Date of Progress Note: 06/27/2021 Subjective: The patient was admitted with COVID pneumonia. The patient had acute kidney injury seco ndary to over diuresis. After holding Lasix, kidney function started trending down. Physical Examination: Vital Signs: Blood pressure 140/76, pulse of 85, afebrile. The patient voiding normally. Chest: Clear to auscultation. Heart: S1, S2. Regular. Abdomen: Soft, nontender. Extremities: No edema. Neurologic: Alert. No focality. Laboratory Data: H and H 11.5/35. Sodium 148, potassium 4.3, bicarb 25, BUN 57, creatinine 1, GFR o f 64, calcium 8.2, phosphorus 3.2, magnesium 2.8. Current Medications: The patient on include; 1.Metronidazole. 2.Aspirin. 3.Lovenox. 4.Tylenol. 5.Zofran. 6.Pantoprazole. Assessment And Plan: 1.Acute kidney injury secondary to over diuresis. The patient looked to me normal volume currently. I am going to keep holding Lasix and we will monitor the patient. 2.Hypernatremia secondary to insensible losses. I am going to start the patient on gentle D5 for to day and we will monitor the patient. 3.Diabetes, stable. We will follow up. 4.COVID pneumonia. Continue current treatment. We will follow up with primary and Pulmonary. VIVIAN/FITZ Voice ID: [id number] Report ID: [id number]
[2021-06-27] MEDS: D5W 1,000 ML IV SCH (13:00)
[2021-06-27] MEDS ORDERED: ENOXAPARIN 40 MG/0.4 ML SQ SCH (17:00)
[2021-06-27] MEDS ORDERED: MELATONIN 5 MG TABLET PO ONE (21:34)
[2021-06-27] MEDS: MELATONIN 5 MG TABLET PO SCH (21:35)
[2021-06-28] MEDS: METRONIDAZOLE 500mg IVPB 500 MG/100 ML BAG IV SCH ×3 (00:10→16:54)
[2021-06-28 03:23] VITALS: O2SAT 98
[2021-06-28 04:18] LABS: Absolute Lymphocytes (CBC) 0.5 K/uL (0.7-4.9); Basophils % 0.1 % (0-1.3); Hematocrit 33.6 % (36.0-45.0); Lymphocytes % 6.5 % (15.3-44.8); MPV 9.4 fL (7.6-11.3); RBC Red Blood Cell Count 3.49 M/uL (3.86-4.86)
[2021-06-28 04:29] LABS: Albumin 2.1 g/dL (3.4-5.0); Bilirubin Total 0.5 mg/dL (0.2-1.0); C-Reactive Protein 11.3 mg/L (<3.00); Ferritin 1771.6 ng/mL (8-388); Potassium 4.1 mmol/L (3.5-5.1); Protein, Total 5.4 g/dL (6.4-8.2)
--- NOTE | 2021-06-28 06:06 | P.PN ---
Subjective Date of Service: 06/28/21 Chief Complaint: Respiratory failure poor appetite Subjective: Improving (Patient reports that she is trying to eat better. Currently on 10 L) Physical Examination - Vital Signs Temperature: 96.9 F Blood Pressure: 136/68 Pulse: 74 Respirations: 18 Pulse Ox (%): 99 - Studies Medications List Reviewed: Yes Assessment & Plan Discharge Plan: LTAC Plan to discharge in: 48 Hours Physician Review Additional Text: COVID: Positive CXR: COMPARISON: 2018 FINDINGS: Lungs appear mildly hazy. The heart is normal size IMPRESSION: Lungs appear mildly hazy which may indicate a mild pneumonia Renal US: COMPARISON: ABDOMINAL EXAM COMPLETE dated 02/02/2015 FINDINGS: The right kidney measures 9.5 x 4.7 x 4.6 cm. The left kidney measures 9.9 x 5.6 x 4.2 cm. Renal cortical thickness and echogenicity are normal. No hydronephrosis or suspicious renal mass. No bladder wall thickening or mass. No intraluminal stone or mass. IMPRESSION: No hydronephrosis or suspicious renal mass. No other significant findings. Follow up CXR 06/25/2021: COMPARISON: Chest Single View dated 06/18/2021; Chest Single View dated 06/11/2021; Chest Single View dated 06/10/2021; Chest Single View dated 06/05/2021 FINDINGS: Lines: None. Lungs: Improved lung volumes with residual bilateral airspace disease that is predominantly in the lung bases. Pleural: No significant pleural effusions or pneumothorax. Cardiac: Mild cardiomegaly. Bones: No acute fractures. IMPRESSION: Improved lung volumes but otherwise similar appearance of airspace opacities predominantly basilar in distribution. Physical exam: GENERAL: The patient is a well-developed, well-nourished, in no apparent distress. Alert and oriented x3. VITAL SIGNS: Reviewed HEENT: Neck supple. LUNGS: Stable on 10 L HEART: Regular rate and rhythm, no appreciable gallops, rubs, murmurs or extra heart sounds ABDOMEN: Soft, nontender, and nondistended. Positive bowel sounds. No hepatosplenomegaly was noted. EXTREMITIES: Without any cyanosis, clubbing, rash, lesions or peripheral edema. NEUROLOGIC: The patient is oriented to person, place and time. Strength and sensation are grossly intact. Face is symmetric. SKIN: Normal color, turgor and temperature. No ulcerations or rashes noted. Impression: Acute respiratory failure with hypoxia secondary to bilateral Covid pneumonia Acute renal injury with hypernatremia, hyperkalemia Diarrhea Elevated liver function UTI Depression Hypertension Diabetes mellitus type 2 with hyperglycemia Plan: Acute respiratory failure with hypoxia secondary to bilateral Covid pneumonia: Patient slowly improving. Stable on 10 L per nasal cannula. Continue IV fluids due to acute renal injury and hypernatremia. Patient taking better oral intake. Continue to encourage oral intake. Physical therapy and Occupational Therapy to continue to evaluate. Continue to wean off oxygen to maintain sats above 90%. Continue oral steroids and supplementation. Diarrhea slight improved. Awaiting C. difficile culture. Patient started on IV Flagyl. Spoke with daughter at length yesterday about the possibility of long-term acute care facility placement versus skilled placement. She is in agreement but would like to discuss with family further. She is agreeable to long-term acute care facility placement. Family to meet again today with family meeting. Acute renal injury with hypernatremia, hyperkalemia: Continue IV fluids. Case discussed with nephrology yesterday. Encourage oral intake. If taking good oral intake then can Hep-Lock IV. Diarrhea: Diarrhea improved. Await C. difficile colitis. Will provide lactobacillus. Continue IV Flagyl. Elevated liver function: Overall improved. We will monitor this closely. UTI: Urine culture showed mixed capri. Discontinue IV Rocephin. No UTI at this time. Depression: Continue Lexapro HTN: Patient remains off lisinopril. Blood pressure stable off medication DM Type 2 with Hyperglycemia: A1c 8.5. Continue with Accuchecks and sliding sca le. Continue to monitor closely. Code Status: Full Code DVT prophylaxis: Xarelto Advanced Care Planning-30 minutes: Need to consider skilled placement or long-term acute care facility. Will discuss again with family. Daughter agreeable to long-term acute facility placement. Would consider skilled placement if can get below 4 L per nasal cannula. Time Spent Managing Pts Care (In Minutes): 55
[2021-06-28] MEDS: PANTOPRAZOLE 40MG TABLET PO SCH (09:00)
[2021-06-28] MEDS: VITAMIN D 1000 UNIT TAB PO SCH (09:52)
[2021-06-28] MEDS: INSULIN -REGULAR HUMAN 50 UNIT/0.5 ML ML SQ SCH ×3 (09:52→16:56)
[2021-06-28] MEDS: ASPIRIN 81 MG CHEWABLE TABLET PO SCH (09:52)
[2021-06-28] MEDS: predniSONE 20 MG TAB PO SCH (09:52)
[2021-06-28] MEDS: THIAMINE HCL 100 MG TABLET PO SCH (09:52)
[2021-06-28] MEDS: ESCITALOPRAM 20 MG TAB PO SCH (09:53)
[2021-06-28] MEDS: ASCORBIC ACID 500 MG TABLET PO SCH ×3 (09:53→16:54)
[2021-06-28] MEDS: LACTOBACILLUS/ACIDOPHILUS TAB PO SCH ×2 (09:53→13:47)
[2021-06-28] MEDS: D5W 1,000 ML IV SCH (09:53)
[2021-06-28] MEDS: ENSURE HIGH PROTEIN 237 ML CAN PO SCH (09:59)
[2021-06-28] MEDS ORDERED: D5W 1,000 ML IV SCH (10:18)
[2021-06-28 11:01] VITALS: TEMP 96.9
[2021-06-28 13:24] LABS: Hematocrit 32.8 % (36.0-45.0)
[2021-06-28 15:09] LABS: Hematocrit 31.7 % (36.0-45.0)
[2021-06-28 15:24] VITALS: BP 124/75
--- NOTE | 2021-06-28 16:57 | P.DS ---
Admission Date: 06/05/21 Discharge Date: 06/28/21 Disposition: TRANSFER TO [facility] Discharge Condition: GOOD Reason for Admission: Respiratory failure poor appetite Consultations: Pulmonary-Dr. Hansen Nephrology-Dr. Chao Procedures: COVID: Positive CXR: COMPARISON: 2018 FINDINGS: Lungs appear mildly hazy. The heart is normal size IMPRESSION: Lungs appear mildly hazy which may indicate a mild pneumonia Renal US: COMPARISON: ABDOMINAL EXAM COMPLETE dated 02/02/2015 FINDINGS: The right kidney measures 9.5 x 4.7 x 4.6 cm. The left kidney measures 9.9 x 5.6 x 4.2 cm. Renal cortical thickness and echogenicity are normal. No hydronephrosis or suspicious renal mass. No bladder wall thickening or mass. No intraluminal stone or mass. IMPRESSION: No hydronephrosis or suspicious renal mass. No other significant findings. CT Ab: COMPARISON: None. TECHNIQUE: Computed axial tomography of the abdomen pelvis was obtained without oral or IV contrast. Lack of IV and oral contrast limits evaluation of solid organs, bowel, and vessels. Coronal reformatted images were obtained and reviewed. All CT scans are performed using dose optimization technique as appropriate and may include automated exposure control or mA/KV adjustment according to patient size. FINDINGS: A renal calculus is not seen. An ureteral calculus is not noted. A bladder calculus is not present. No hydronephrosis The liver, spleen, pancreas and adrenals appear grossly normal There is no evidence of diverticulitis. Spondylosis involves the lumbar spine resulting in spinal stenosis. Large amount of stool present throughout the colon. Rectum is mildly distended with stool Tiny umbilical hernia. Hysterectomy Lung bases demonstrate mild to moderate bilateral ground-glass opacities IMPRESSION: Negative for a genitourinary calculus Large amount stool throughout colon Lung bases demonstrate mild to moderate bilateral ground-glass opacities probably Covid pneumonia Follow up CXR 06/25/2021: COMPARISON: Chest Single View dated 06/18/2021; Chest Single View dated 021; Chest Single View dated 06/10/2021; Chest Single View dated 06/05/2021 FINDINGS: Lines: None. Lungs: Improved lung volumes with residual bilateral airspace disease that is predominantly in the lung bases. Pleural: No significant pleural effusions or pneumothorax. Cardiac: Mild cardiomegaly. Bones: No acute fractures. IMPRESSION: Improved lung volumes but otherwise similar appearance of airspace opacities predominantly basilar in distribution. Medical Problem List: Acute respiratory failure with hypoxia secondary to bilateral Covid pneumonia Rectal bleeding suspect lower GI bleed related to anticoagulation Acute renal injury with hypernatremia, hyperkalemia Diarrhea Elevated liver function UTI Depression Hypertension Diabetes mellitus type 2 with hyperglycemia Brief History of Present Illness: 71-year-old -[place]onegas[place] female with history of hypertension, hyperlipidemia presented with increasing shortness of breath. Patient had tested positive with other family members positive for Covid. Patient had increased fatigue. Patient evaluated emergency room. Patient found to have Covid pneumonia with hypoxia. Patient admitted for treatment. Hospital Course: Patient presented with acute respiratory failure with hypoxia secondary to bilateral Covid pneumonia. Patient was admitted for treatment. During the course of her stay patient required IV steroids and supplementation. Patient also had acute renal injury with hypernatremia and hyperkalemia likely from de hydration. Patient with underlying hypertension and diabetes. Her stay was prolonged. Patient continued to require anywhere between 4 and 10 L per nasal cannula. Patient was treated with IV antibiotic therapy for UTI which was discontinued after urine culture showed mixed capri. Patient had poor oral intake because of depression. Lexapro was started. Patient had improved but she started to have rectal bleeding. Hemoglobin was monitored closely. Hemoglobin remained stable at this time. Case discussed in detail with nephrology. After further discussion with family family wanted the patient to be transferred to [facility] to further evaluate. Transfer was initiated so that GI could further evaluate her condition. Aspirin and Lovenox have been discontinued. Hemoglobin now around 10.5. Vital signs stable. Recent CT abdomen and pelvis showed increased stool. Case discussed in detail with family concerning plan of care. Case also discussed with nephrology and pulmonology. Patient stable for transfer to [facility]. Patient will continue treatment for suspected lower GI bleed. Hopefully this will resolve without further intervention. Recommend transfusion if hemoglobin below 9.0. Consider tagged hemoglobin bleeding scan or CT scan there. Further evaluation by GI can be addressed. Continue Covid treatment. Continue to monitor closely. Consider LTAC transfer after patient has been stabilized. Vital Signs/Physical Exam: Temp Pulse Resp BP Pulse Ox 96.9 F 74 18 124/75 96 06/28/21 11:00 06/28/21 11:00 06/28/21 15:45 06/28/21 15:45 06/28/21 15:45 General: Alert, In no apparent distress, Oriented x3, Cooperative HEENT: Atraumatic Neck: Supple Respiratory: Clear to auscultation bilaterally, Normal air movement Cardiovascular: Normal pulses, Regular rate/rhythm Gastrointestinal: Normal bowel sounds, No tenderness, No masses, No rebound, No guarding Neurological: Normal speech, Normal strength at 5/5 x4 extr, Normal tone, Normal affect Laboratory Data at Discharge: WBC 8.30 K/uL (4.3-10.9) 06/28/21 03:14 Hgb 10.4 g/dL (12.0-15.0) L 06/28/21 14:58 Hct 31.7 % (36.0-45.0) L 06/28/21 14:58 Plt Count 119 K/uL (152-406) L 06/28/21 03:14 PT 12.6 SECONDS (9.5-12.5) H 06/05/21 16:25 INR 1.09 06/05/21 16:25 APTT 24.2 SECONDS (24.3-36.9) L 06/05/21 10:40 Sodium 148 mmol/L (136-145) H 06/28/21 03:14 Potassium 4.1 mmol/L (3.5-5.1) 06/28/21 03:14 BUN 35 mg/dL (7-18) H D 06/28/21 03:14 Creatinine 0.79 mg/dL (0.55-1.3) 06/28/21 03:14 Glucose 207 mg/dL (74-106) H 06/28/21 03:14 Phosphorus 3.2 mg/dL (2.5-4.9) 06/27/21 03:21 Magnesium 2.8 mg/dL (1.8-2.4) H D 06/27/21 03:21 Total Bilirubin 0.5 mg/dL (0.2-1.0) 06/28/21 03:14 AST 19 U/L (15-37) 06/28/21 03:14 ALT 50 U/L (12-78) 06/28/21 03:14 Alkaline Phosphatase 44 U/L (45-117) L 06/28/21 03:14 Home Medications: Lidocaine Viscous 2% Soln [Xylocaine Viscous Oral 2%] 3 tsp PO Q6HP PRN 04/13/15 Lisinopril [Zestril] 40 mg PO DAILY WITH BREAKFAST 04/13/15 Mag Hydrox/Al Hydrox/Simeth [Antacid Liquid] 2 tbsp PO Q6HP PRN 04/13/15 Phenobarb/Hyoscy/Atropine/Scop [ Elixir] 32.4 mg PO Q6HP PRN 04/13/15 Physician Discharge Instructions: Patient to be transferred to [facility] for further evaluation of lower GI bleed, Covid pneumonia, Diet: N.p.o. at Activity: Ad moni Followup: NONE,NONE [Primary Care Provider] - Time spent managing pt's care (in minutes): 55
--- NOTE | 2021-06-28 17:55 | PN ---
Date of Progress Note: 06/28/2021 Subjective: The patient was admitted with COVID pneumonia, acute kidney injury secondary to over diu resis. The patient over the night has vaginal bleed. Otherwise, the patient has been stable. Physical Examination: Vital Signs: Blood pressure 136/68, pulse of 74, afebrile. Chest: Faint rales bilateral. Heart: S1, S2. Regular. Abdomen: Soft, nontender. EXTREMITIES: Trace edema. NEUROLOGIC: Alert and oriented x3. No focal. Laboratory Data: H and H 10.9/32.8. Sodium 148, potassium 4.1, bicarb 26, BUN 35, creatinine back t o normal 0.7. Calcium 8.1. Current Medications: The patient on include: 1.Metronidazole. 2.Pantoprazole. 3.Zofran. 4.Prednisone. 5.D5 at 100. Assessment And Plan: 1.Acute kidney injury secondary to over diuresis, recovered, resolved, look to me currently on the n ormal volume. I am going to keep holding Lasix. We will hold IV fluid. 2.Hypernatremia. We will start the patient on D5 and we will monitor. Keep holding diuresis. 3.Hypercalcemia, resolved. 4.Hyperkalemia, resolved. 5.COVID pneumonia. Followup with the primary. TELLO Voice ID: [id number] Report ID: [id number]
[2021-06-28] MEDS ORDERED: NA CHLORIDE 0.9% 1,000 ML ONE (19:57)
[2021-06-28] MEDS ORDERED: NA CHLORIDE 0.9% 1,000 ML IV SCH (20:00)
[2021-06-29 12:05] LABS: C.diff Antigen/Toxin Ag neg : Tox neg (NEG : NEG)
== END 2021-06-28 21:06 | disposition short-term general hospital (02) | DRG 177 ==
LOC: ER 09:58 → ERHOLD 13:19 → 3RD-ICU 06-07 21:18 → 4TH 06-14 13:21
PROVIDERS: ADMIT Hospitalist; ATTEND Family Medicine
PROC: 5A09357 Assistance with Respiratory Ventilation, Less than 24 Consecutive Hours, Continuous Positive Airway Pressure (ICD-10-PCS; principal; 2021-06-10)
DX: U07.1 COVID-19 (principal); J12.82 Pneumonia due to coronavirus disease 2019; J96.01 Acute respiratory failure with hypoxia; G93.40 Encephalopathy, unspecified; N17.9 Acute kidney failure, unspecified; E87.2 Acidosis; E87.0 Hyperosmolality and hypernatremia; E87.1 Hypo-osmolality and hyponatremia; N39.0 Urinary tract infection, site not specified; I10 Essential (primary) hypertension; E78.5 Hyperlipidemia, unspecified; D64.9 Anemia, unspecified; R63.0 Anorexia; R74.8 Abnormal levels of other serum enzymes; E83.52 Hypercalcemia; E87.5 Hyperkalemia; F32.9 Major depressive disorder, single episode, unspecified; E11.65 Type 2 diabetes mellitus with hyperglycemia; Z68.31 Body mass index [BMI] 31.0-31.9, adult
CPT/HCPCS: 36415; 51702; 71045; 74176; 76377; 76770; 80048; 80053; 80076; 81003; 81015; 82274; 82728; 82805; 82947; 83036; 83605; 83735; 83880; 84100; 84132; 84145; 84439; 84443; 84484; 85014; 85018; 85025; 85379; 85610; 85730; 86140; 86850; 86900; 86901; 87040; 87045; 87046; 87086; 87088; 87324; 87449; 93005; 94010; 94660; 96361; 96365; 96375; 97110; 97116; 97161; 97530; 99285; J0456; J0696; J1644; J1650; J1940; J2405; J2920; J2930; J7030; J7040; J7050; J7512; J7799; U0003

== ENCOUNTER 2021-07-24 11:43 | Inpatient (IN) | payer OTHER ==
[2021-07-24 12:34] LABS: Absolute Lymphocytes (CBC) 3.2 K/uL (0.7-4.9); Basophils % 0.6 % (0-1.3); Hematocrit 29.5 % (36.0-45.0); Lymphocytes % 24.6 % (15.3-44.8); MPV 8.3 fL (7.6-11.3); RBC Red Blood Cell Count 3.09 M/uL (3.86-4.86)
[2021-07-24 12:35] LABS: Protime INR 1.39
[2021-07-24] MEDS ORDERED: ACETAMINOPHEN 325 MG TABLET ONE (12:52)
[2021-07-24] MEDS ORDERED: CEFTRIAXONE 1000 MG/VIAL ONE (13:04)
[2021-07-24 13:07] LABS: ALT/SGPT 27 U/L (12-78); Alkaline Phosphatase 64 U/L (45-117); BUN Blood Urea Nitrogen 9 mg/dL (7-18); Bicarbonate 27 mmol/L (21-32); Bilirubin Direct 0.2 mg/dL (0-0.2); Bilirubin Total 0.8 mg/dL (0.2-1.0); Glucose Level 101 mg/dL (74-106); NT PRO-BNP 653 pg/mL (<125); Protein, Total 6.2 g/dL (6.4-8.2); Sodium Level 143 mmol/L (136-145); Troponin (Emerg Dept Use Only) 0.07 ng/mL (0.0-0.045)
[2021-07-24 13:08] LABS: AST/SGOT 39 U/L (15-37); Magnesium 1.5 mg/dL (1.8-2.4)
[2021-07-24 14:26] LABS: Urine Bacteria 20-50 /HPF (<20); Urine Mucus HEAVY /HPF (NONE SEEN); Urine RBC <5 /HPF (NONE SEEN)
[2021-07-24 14:27] LABS: Urine Yeast PRESENT (NONE SEEN)
[2021-07-24 15:07] LABS: Urine Blood 2+ (Negative); Urine Glucose Negative (Negative); Urine Protein 2+ (Negative); Urine Specific Gravity >=1.030 (1.005-1.030)
--- NOTE | 2021-07-24 15:26 | ER ---
Nurse's Notes [facility] Name: Marry Chowdary Age: 70 yrs Sex: Female : 1950 Arrival Date: 07/24/2021 Time: 11:44 Bed 15 Private MD: Wolfgang Noriega R Diagnosis: Pneumonia;Hypoxia;Urinary tract infection Presentation: 07/24 11:47 Chief complaint: EMS states: Patient had COVID at the end of may, was hospitalized es2 on june 05. Has been seen by home health since. Was seen by home health today, sats were upper 70s, low 80s. with EMS, upper 80s, low 90s. 93% on 2L O2 NC. Fever of 102, tachy at 115. Hx of HTN, no med taken today. Coronavirus screen: Client denies travel out of the [place] in the last 14 days. Ebola Screen: Patient negative for fever greater than or equal to 101.5 degrees Fahrenheit, and additional compatible Ebola Virus Disease symptoms Patient denies exposure to infectious person. Patient denies travel to an Ebola-affected area in the 21 days before illness onset. No symptoms or risks identified at this time. Initial Sepsis Screen: Does the patient meet any 2 criteria? No. Patient's initial sepsis screen is negative. Does the patient have a suspected source of infection? No. Patient's initial sepsis screen is negative. Risk Assessment: Do you want to hurt yourself or someone else? Patient reports no desire to harm self or others. Onset of symptoms was July 24, 2021. 11:47 Method Of Arrival: EMS es2 11:47 Acuity: MOSES 2 es2 Triage Assessment: 11:50 General: Appears well developed, well nourished, Behavior is calm, cooperative, es2 appropriate for age. Pain: Denies pain. EENT: No signs and/or symptoms were reported regarding the EENT system. Neuro: Level of Consciousness is awake, alert, obeys commands, Oriented to person, place, time, situation, Appropriate for age Speech is normal. Cardiovascular: Capillary refill < 3 seconds Patient's skin is warm and dry. Respiratory: Airway is patent Respiratory pattern is regular. GI: No signs and/or symptoms were reported involving the gastrointestinal system. : No signs and/or symptoms were reported regarding the genitourinary system. Derm: No signs and/or symptoms reported regarding the dermatologic system. Musculoskeletal: No signs and/or symptoms reported regarding the musculoskeletal system. Historical: - Home Meds: 11:49 hydrochlorothiazide 12.5 mg Oral cap 1 cap once daily [Active]; lisinopril 40 mg Oral es2 tab 1 tab once daily [Active]; rosuvastatin 5 mg Oral tab 1 tab once daily [Active]; - PMHx: 11:49 Arthritis; Hypertension; Hyperlipidemia; es2 - Immunization history:: Adult Immunizations. - Social history:: Smoking status: Patient denies any tobacco usage or history of. Screenin:52 Abuse screen: Denies threats or abuse. Denies injuries from another. Nutritional es2 screening: No deficits noted. Tuberculosis screening: No symptoms or risk factors identified. Fall Risk Mental Status- Oriented to own ability (0 pts). Assessment: 11:51 General: Appears well developed, well nourished, Behavior is calm, cooperative, es2 appropriate for age. Pain: Denies pain. Neuro: Level of Consciousness is awake, alert, obeys commands, Oriented to person, place, time, situation, Appropriate for age Speech is normal. Cardiovascular: Patient's skin is warm and dry. Respiratory: Respiratory pattern is regular. GI: No signs and/or symptoms were reported involving the gastrointestinal system. : No signs and/or symptoms were reported regarding the genitourinary system. EENT: No signs and/or symptoms were reported regarding the EENT system. Vital Signs: 11:47 BP 143 / 66; Pulse 120; Resp 25; Temp 102.8; Pulse Ox 88% on R/A; es2 12:33 BP 133 / 81; Pulse 120; Resp 24; Pulse Ox 92% on 2 lpm NC; es2 13:18 BP 118 / 74; Pulse 102; Resp 20; Temp 100.9(O); Pulse Ox 100% on 2 lpm NC; es2 13:34 BP 118 / 74; Pulse 107; Resp 20; Pulse Ox 99% on 2 lpm NC; es2 14:37 BP 114 / 54; Pulse 98; Resp 18; Pulse Ox 99% on 2 lpm NC; es2 15:43 BP 107 / 57; Pulse 98; Resp 18; Pulse Ox 98% on 2 lpm NC; es2 18:17 BP 111 / 59; es2 ED Course: 11:44 Patient arrived in ED. am2 11:44 Wolfgang Noriega MD is Private Physician. am2 11:46 Alton Munguia [facility]. m 11:46 Jose Small MD is Attending Physician. [facility] 11:47 Lindsay Palomo, RN is Primary Nurse. es2 11:49 Triage completed. es2 11:52 Arm band placed on. es2 11:52 Patient has correct armband on for positive identification. Bed in low position. Call es2 light in reach. Side rails up X2. 11:53 No provider procedures requiring assistance completed. es2 12:25 Basic Metabolic Panel Sent. es2 12:25 CBC with Automated Diff Sent. es2 12:25 Liver (Hepatic) Function Sent. es2 12:25 NT PRO-BNP Sent. es2 12:25 Magnesium Sent. es2 12:25 Protime (+INR) Sent. es2 12:25 Lactate Sent. es2 12:25 Blood Culture Adult (2) Sent. es2 12:25 Procalcitonin Sent. es2 12:25 Basic Metabolic Panel Sent. es2 12:25 CBC with Diff Sent. es2 12:25 LFT's Sent. es2 12:25 Magnesium Sent. es2 12:25 NT PRO-BNP Sent. es2 12:25 PT-INR Sent. es2 12:25 XRAY Chest (1 view) Sent. es2 12:25 Troponin (emerg Dept Use Only) Sent. es2 12:33 Inserted saline lock: 20 gauge in right antecubital area, using aseptic technique. es2 Blood collected. 12:35 SARS-COV-2 RT PCR Sent. es2 12:35 Protime (+INR) Sent. es2 12:35 Magnesium Sent. es2 12:35 Liver (Hepatic) Function Sent. es2 12:35 NT PRO-BNP Sent. es2 12:35 Basic Metabolic Panel Sent. es2 12:35 Blood Culture Adult (2) Sent. es2 12:35 Procalcitonin Sent. es2 12:37 XRAY Chest (1 view) In Process Unspecified. EDMS 13:12 SARS-COV-2 RT PCR Sent. es2 13:12 Urine Microscopic Only Sent. es2 13:12 Urine Culture Sent. es2 15:24 Richard Barrios MD is Hospitalizing Provider. [facility] Administered Medications: 12:33 Drug: Tylenol 650 mg Route: PO; es2 18:18 Follow up: Response: No adverse reaction es2 12:43 Drug: Rocephin (cefTRIAXone) 1 grams Route: IV; Rate: calculated rate; Site: right ap3 antecubital; 13:12 Follow up: Response: No adverse reaction; IV Status: Completed infusion es2 13:18 Drug: Magnesium Sulfate 1 grams Route: IVPB; Infused Over: 1 hrs; Site: right es2 antecubital; 14:11 Follow up: Response: No adverse reaction; IV Status: Completed infusion es2 15:44 Follow up: Response: No adverse reaction; IV Status: Completed infusion es2 Outcome: 15:25 Decision to Hospitalize by Provider. josephine 18:21 Patient left the ED. es2 Signatures: Dispatcher [employer] EDMS Alton Munguia PA PA [facility] Aure Petersen am2 Aure Bond RN RN ap3 Lindsay Palomo RN RN es2 Corrections: (The following items were deleted from the chart) 12:35 12:25 CORONAVIRUS+MR.LAB.BRZ drawn and sent. es2 EDMS
--- NOTE | 2021-07-24 15:26 | EDPHYS ---
Physician Documentation [facility] Name: Marry Chowdary Age: 70 yrs Sex: Female : 1950 Arrival Date: 07/24/2021 Time: 11:44 Bed 15 Private MD: Wolfgang Noriega R ED Physician Jose Small HPI: 07/24 15:20 This 70 yrs old Black Female presents to ER via EMS with complaints of Fever. jmm 15:20 Onset: The symptoms/episode began/occurred gradually, 2 day(s) ago. Modifying factors: jmm there are no obvious modifying factors. Associated signs and symptoms: Pertinent positives: shortness of breath. The patient has experienced similar episodes in the past. Historical: - Home Meds: 11:49 hydrochlorothiazide 12.5 mg Oral cap 1 cap once daily [Active]; lisinopril 40 mg Oral es2 tab 1 tab once daily [Active]; rosuvastatin 5 mg Oral tab 1 tab once daily [Active]; - PMHx: 11:49 Arthritis; Hypertension; Hyperlipidemia; es2 - Immunization history:: Adult Immunizations. - Social history:: Smoking status: Patient denies any tobacco usage or history of. ROS: 15:20 Constitutional: Positive for fever. jmm 15:20 Respiratory: Positive for shortness of breath. 15:20 All other systems are negative. Exam: 15:20 Constitutional: This is a well developed, well nourished patient who is awake, alert, jmm and in no acute distress. Head/Face: atraumatic. Eyes: EOMI, no conjunctival erythema appreciated ENT: Moist Mucus Membranes Neck: Trachea midline, Supple Chest/axilla: Normal chest wall appearance and motion. Cardiovascular: Regular rate and rhythm. No edema appreciated Respiratory: Normal respirations, no respiratory distress appreciated 15:23 Abdomen/GI: Non distended, soft Back: Normal ROM Skin: General appearance color jmm normal MS/ Extremity: Moves all extremities, no obvious deformities appreciated, no edema noted to the lower extremities 15:23 Neuro: Orientation: is normal, Mentation: is normal, Memory: is normal. 15:23 Psych: Behavior/mood is pleasant, cooperative. Vital Signs: 11:47 BP 143 / 66; Pulse 120; Resp 25; Temp 102.8; Pulse Ox 88% on R/A; es2 12:33 BP 133 / 81; Pulse 120; Resp 24; Pulse Ox 92% on 2 lpm NC; es2 13:18 BP 118 / 74; Pulse 102; Resp 20; Temp 100.9(O); Pulse Ox 100% on 2 lpm NC; es2 13:34 BP 118 / 74; Pulse 107; Resp 20; Pulse Ox 99% on 2 lpm NC; es2 14:37 BP 114 / 54; Pulse 98; Resp 18; Pulse Ox 99% on 2 lpm NC; es2 15:43 BP 107 / 57; Pulse 98; Resp 18; Pulse Ox 98% on 2 lpm NC; es2 18:17 BP 111 / 59; es2 MDM: 11:57 Patient medically screened. [facility] 15:23 Data reviewed: vital signs, nurses notes. Counseling: I had a detailed discussion with earnest the patient and/or guardian regarding: the historical points, exam findings, and any diagnostic results supporting the discharge/admit diagnosis, lab results, radiology results, the need for further work-up and treatment in the hospital. ED course: I discussed the patient with steve whom accepted the patient to Dr. Barrios's service. . 07/24 12:01 Order name: Basic Metabolic Panel [facility] 07/24 12:01 Order name: CBC with Diff [facility] 07/24 12:01 Order name: LFT's [facility] 07/24 12:01 Order name: Magnesium [facility] 07/24 12:01 Order name: NT PRO-BNP [facility] 07/24 12:01 Order name: PT-INR [facility] 07/24 12:01 Order name: Troponin (emerg Dept Use Only); Complete Time: 13:11 [facility] 07/24 12:01 Order name: Procalcitonin; Complete Time: 15:01 [facility] 07/24 12:01 Order name: Lactate; Complete Time: 12:59 [facility] 07/24 12:01 Order name: Blood Culture Adult (2) [facility] 07/24 12:02 Order name: Basic Metabolic Panel; Complete Time: 13:11 [facility] 07/24 12:02 Order name: CBC with Automated Diff; Complete Time: 12:38 [facility] 07/24 12:02 Order name: Liver (Hepatic) Function; Complete Time: 13:11 [facility] 07/24 12:01 Order name: XRAY Chest (1 view); Complete Time: 17:02 [facility] 07/24 12:02 Order name: Magnesium; Complete Time: 13:11 [facility] 07/24 12:02 Order name: NT PRO-BNP; Complete Time: 13:11 [facility] 07/24 12:02 Order name: Protime (+INR); Complete Time: 12:38 [facility] 07/24 12:34 Order name: SARS-COV-2 RT PCR; Complete Time: 13:38 [facility] 07/24 13:01 Order name: Urine Microscopic Only; Complete Time: 14:32 07/24 13:01 Order name: Urine Culture 07/24 15:08 Order name: Urine Dipstick-Ancillary; Complete Time: 15:15 [facility] 07/24 16:58 Order name: T4 Free; Complete Time: 18:11 [facility] 07/24 16:58 Order name: Thyroid Stimulating Hormone; Complete Time: 18:11 [facility] 07/24 16:58 Order name: Urinalysis [facility] 07/24 16:58 Order name: Basic Metabolic Panel [facility] 07/24 16:58 Order name: Basic Metabolic Panel [facility] 07/24 16:58 Order name: CBC with Automated Diff [facility] 07/24 16:58 Order name: CBC with Automated Diff [facility] 07/24 12:01 Order name: EKG; Complete Time: 12:03 [facility] 07/24 12:01 Order name: Cardiac monitoring; Complete Time: 12:22 [facility] 07/24 12:01 Order name: EKG - Nurse/Tech; Complete Time: 12:22 [facility] 07/24 12:01 Order name: IV Saline Lock; Complete Time: 12:22 [facility] 07/24 12:01 Order name: Labs collected and sent; Complete Time: 12:22 [facility] 07/24 12:01 Order name: O2 Per Protocol; Complete Time: 12:22 [facility] 07/24 12:01 Order name: O2 Sat Monitoring; Complete Time: 12:22 [facility] 07/24 12:02 Order name: Urine Dipstick-Ancillary (obtain specimen) [facility] 07/24 16:58 Order name: Heart Healthy EDMS Administered Medications: 12:33 Drug: Tylenol 650 mg Route: PO; es2 18:18 Follow up: Response: No adverse reaction es2 12:43 Drug: Rocephin (cefTRIAXone) 1 grams Route: IV; Rate: calculated rate; Site: right ap3 antecubital; 13:12 Follow up: Response: No adverse reaction; IV Status: Completed infusion es2 13:18 Drug: Magnesium Sulfate 1 grams Route: IVPB; Infused Over: 1 hrs; Site: right es2 antecubital; 14:11 Follow up: Response: No adverse reaction; IV Status: Completed infusion es2 15:44 Follow up: Response: No adverse reaction; IV Status: Completed infusion es2 Disposition: 22:56 Co-signature as Attending Physician, Jose Small MD I agree with the assessment and kdr plan of care. Disposition Summary: 07/24/21 15:25 Hospitalization Ordered Hospitalization Status: Inpatient Admission [facility] Provider: Richard Barrios Location: Telemetry/MedSurg (Inpatient) jm Condition: Stable jmm Problem: new jmm Symptoms: are unchanged jmm Bed/Room Type: Standard [facility] Room Assignment: 422(07/24/21 17:43) dw Diagnosis - Pneumonia jmm - Hypoxia jmm - Urinary tract infection jm Forms: - Medication Reconciliation Form jmm - SBAR form jmm Signatures: Dispatcher [employer] EDMS Genesis High RN RN dw Jose Small MD MD kdr Mickail, Joel, PA PA jmm Aure Bond RN RN ap3 Lindsay Palomo RN RN es2 Corrections: (The following items were deleted from the chart) 12:35 12:03 CORONAVIRUS+MR.LAB.BRZ ordered. EDSD EDSD 17:43 15:25 jmm dw
--- NOTE | 2021-07-24 16:45 | RAD REPORT ---
EXAM DESCRIPTION: RAD - Chest Single View - 07/24/2021 3:06 pm CLINICAL HISTORY: SOB COMPARISON: Chest Single View dated 06/25/2021; Chest Single View dated 06/18/2021; Chest Single View d ated 06/11/2021; Chest Single View dated 06/10/2021; Stone Protocol dated 06/18/2021 FINDINGS: Lines: None. Lungs: Low lung volumes with patchy bilateral airspace disease. Pleural: No significant pleural effusions or pneumothorax. Cardiac: The heart size is within normal limits. Bones: No acute fractures. Other: IMPRESSION: Patchy bilateral airspace disease could reflect either acute or sequela of recent pneumo lissa. Though partially imaged, similar findings were present on the abdomen/pelvis CT from 06/18/2021.
[2021-07-24] MEDS ORDERED: ONDANSETRON 4 MG/2 ML VIAL IV PRN (16:56)
[2021-07-24] MEDS ORDERED: ACETAMINOPHEN 500 MG TAB PO PRN (16:56)
[2021-07-24] MEDS ORDERED: HYOSCYAMINE PO PRN (16:57)
[2021-07-24] MEDS ORDERED: ATROPINE PO PRN (16:57)
[2021-07-24] MEDS ORDERED: MAGNES/ALUMIN/SIMET 30ML UCUP PO PRN (16:57)
[2021-07-24] MEDS ORDERED: SCOPOLAMINE PO PRN (16:57)
[2021-07-24] MEDS ORDERED: LIDOCAINE VISCOUS 2% SOLN 15 ML UDC PO PRN (16:57)
[2021-07-24] MEDS ORDERED: PHENOBARBITAL PO PRN (16:57)
[2021-07-24] MEDS ORDERED: HYDROCODONE/APAP 5/325 MG TAB PO PRN (16:59)
--- NOTE | 2021-07-24 17:12 | P.HP ---
Certification for Inpatient Patient admitted to: Inpatient With expected LOS: >2 Midnights Patient will require the following post-hospital care: Home Health Services Practitioner: I am a practitioner with admitting privileges, knowledge of patient current condition, hospital course, and medical plan of care. Services: Services provided to patient in accordance with Admission requirements found in Title 42 Section 412.3 of the Code of Federal Regulations Patient History Date of Service: 07/24/21 Reason for admission: Fever, hypoxia History of Present Illness: Patient is a 70-year-old female with a past medical history significant for hypertension, hyperlipidemia, COVID-19 pneumonia, osteoarthritis who presents with complaint of fever and hypoxia onset yesterday. Patient had COVID-19 pneumonia and was discharged from the hospital in mid-June after a 2 to 3 weeks stay in the hospital.. Family reported that since then patient has been bedbound but patient's O2 sat was within normal limits until yesterday when O2 sat went as low as to 82%. Patient reports associated signs and symptoms of cough, shortness of breath with exertion, fatigue and weakness. Patient denies any other signs and symptoms. Symptoms are aggravated with exertion and relieved by nothing. Patient was brought to the hospital for medical evaluation. Allergies No Known Allergies Allergy (Verified 04/13/15 10:06) Home Medications: Lidocaine Viscous 2% Soln [Xylocaine Viscous Oral 2%] 3 tsp PO Q6HP PRN 04/13/15 Lisinopril [Zestril] 40 mg PO DAILY WITH BREAKFAST 04/13/15 Mag Hydrox/Al Hydrox/Simeth [Antacid Liquid] 2 tbsp PO Q6HP PRN 04/13/15 Phenobarb/Hyoscy/Atropine/Scop [ Elixir] 32.4 mg PO Q6HP PRN 04/13/15 - Past Medical/Surgical History Diabetic: No -: HTN -: HLD -: Osteoarthritis. Past Surgical History: Reviewed- Non-Contributory - Family History Family History: Reviewed- Non-Contributory - Social History Smoking Status: Never smoker Alcohol use: No CD- Drugs: No Caffeine use: No Place of Residence: Home Review of Systems General: Fever, Weakness, Other (Fatigue ) Eyes: Unremarkable ENT: Unremarkable Respiratory: Cough, Shortness of Breath, SOB with Excertion Cardiovascular: Unremarkable Gastrointestinal: Unremarkable Genitourinary: Unremarkable Musculoskeletal: Unremarkable Integumentary: Other (Sacral Ulcers ), Unremarkable Neurological: Weakness Lymphatics: Unremarkable Physical Examination - Physical Exam General: Alert, In no apparent distress, Oriented x3 HEENT: Atraumatic, PERRLA, Mucous membr. moist/pink, EOMI, Sclerae nonicteric Neck: Supple, 2+ carotid pulse no bruit, No LAD, Without JVD or thyroid abnormality Respiratory: Diminished Cardiovascular: Regular rate/rhythm, Normal S1 S2 Capillary refill: <2 Seconds Gastrointestinal: Normal bowel sounds, No tenderness Musculoskeletal: No clubbing, No tenderness Integumentary: No rashes, Pressure ulcer Neurological: Normal gait, Normal speech, Normal tone, Normal affect Lymphatics: No axilla or inguinal lymphadenopathy External genitalia: Deferred Rectal: Deferred - Studies Laboratory Data (last 24 hrs) 07/24/21 12:15: PT 16.0 H, INR 1.39 07/24/21 12:15: WBC 12.90 H, Hgb 9.5 L, Hct 29.5 L, Plt Count 304 07/24/21 12:15: Sodium 143, Potassium 3.0 L, BUN 9, Creatinine 0.64, Glucose 101, Magnesium 1.5 L D, Total Bilirubin 0.8, AST 39 H, ALT 27, Alkaline Phosphatase 64 Assessment and Plan - Plan --Pneumonia. As noted on imaging. Pulmonology consulted. Blood cultures pending. Patient placed on antibiotics, steroids and O2 therapy. We will await further recommendation from estate manager. --Acute respiratory failure with hypoxia. Continue current treatment regimen. Further management per estate manager. --Elevated troponin. Will trend troponin level. Echocardiogram pending. Cardiology consulted. Telemetry to monitor for any significant arrhythmia. --Elevated BNP. Echocardiogram pending. Further management per child care center administrator. --Hypertension. Stable. Continue home medications. --UTI POA. Continue antibiotics. --Candidiasis. Yeast in the urine. Patient placed on Diflucan. --HLD. Continue statin. --Osteoarthritis. We will manage pain with current pain medication regimen. --Debility. Likely secondary to prolonged hospitalization. We will get a PT consult. --Leukocytosis. Blood cultures pending. Continue antibiotics. --Anemia of chronic disease. H&H stable. We will continue to monitor hemoglobin and transfuse if less than 7.0. --Hypomagnesemia. Replete as needed. We will reassess levels in a.m. -- Hypokalemia. Replete as needed. Will reassess levels in the a.m. --DVT prophylaxis with Lovenox subQ I have had discussion about advanced directives with the patient during this hospital admission. Addressed code status and goals of care. Spent more than 30 minutes. Case discussed withpatient and nurse. The following document was completed using voice recognition software. This can produce car porter errors that can at times significantly distort words and phrases. Please interpret any aspect of the note that is nonsensical in light of this fact. Discharge Plan: Home Plan to discharge in: 48 Hours - Advance Directives Does patient have a Living Will: No Does patient have a Durable POA for Healthcare: No - Code Status/Comfort Care Code Status Assessed: Yes Code Status: Full Code Physician Review: Patient Assessed, Agree with Above Assessment and Plan Critical Care: No
[2021-07-24 18:10] LABS: Thyroid Stimulating Hormone 0.66 uIU/mL (0.360-3.740)
[2021-07-24 18:46] VITALS: BMI 32.3
[2021-07-24] MEDS: ENOXAPARIN 40 MG/0.4 ML SQ SCH (18:56)
[2021-07-24] MEDS: METHYLPREDNISOLONE 40 MG INJ IV SCH (18:56)
[2021-07-24] MEDS: FLUCONAZOLE 100 MG TAB PO SCH (18:56)
[2021-07-24] MEDS ORDERED: MAGNESIUM SULFATE 1 gm IVPB 1 GM/100 ML BAG IV ONE (19:00)
[2021-07-24] MEDS ORDERED: POTASSIUM CL 40 MEQ in NA CHLORIDE 0.9% 500 ML IV SCH (19:00)
[2021-07-24] MEDS ORDERED: PNEUMOCOCCAL VACCINE 0.5 ML IMVAC ONE (20:00)
[2021-07-24] MEDS: ALBUTEROL 2.5 MG/3 ML NEB SOL NEB SCH (20:10)
[2021-07-24] MEDS: IPRATROPIUM BROM 0.5MG/2.5ML NEB SCH (20:10)
[2021-07-25] MEDS: METHYLPREDNISOLONE 40 MG INJ IV SCH (01:20)
[2021-07-25] MEDS: IPRATROPIUM BROM 0.5MG/2.5ML NEB SCH ×4 (01:30→20:20)
[2021-07-25] MEDS: ALBUTEROL 2.5 MG/3 ML NEB SOL NEB SCH ×4 (01:30→20:20)
[2021-07-25 05:02] LABS: Absolute Lymphocytes (CBC) 1.1 K/uL (0.7-4.9); Basophils % 0.6 % (0-1.3); Hematocrit 24.3 % (36.0-45.0); Lymphocytes % 10.3 % (15.3-44.8); MPV 7.7 fL (7.6-11.3); RBC Red Blood Cell Count 2.56 M/uL (3.86-4.86)
[2021-07-25 05:15] LABS: BUN Blood Urea Nitrogen 11 mg/dL (7-18); Bicarbonate 26 mmol/L (21-32); Glucose Level 195 mg/dL (74-106); Magnesium 2.2 mg/dL (1.8-2.4); Potassium 3.2 mmol/L (3.5-5.1); Sodium Level 144 mmol/L (136-145); Troponin I 0.02 ng/mL (0.0-0.045)
[2021-07-25] MEDS ORDERED: POTASSIUM CL SA 10 MEQ TAB PO ONE ×2 (06:00→13:58)
--- NOTE | 2021-07-25 06:01 | P.PN ---
Date of Service: 07/25/21 Subjective: Patient reports feeling better today, breathing more easily/comfortably Continues with generalized weakness No new complaints, no acute events overnight ROS: 10 point review of systems otherwise negative Physical exam GEN: Alert, oriented, NAD HEENT: Normal conjunctiva, sclera anicteric CV: Regular rate and rhythm, trace pedal edema Pulm: Nonlabored respiration on 2L NC ABD: Soft, nontender, nondistended MSK: No joint tenderness Neuro: Normal speech, normal affect, generalized weakness Problem list Acute bacterial cystitis with candidiasis Acute hypoxemic respiratory failure secondary to possible pneumonia, with recent Covid pneumonia Troponin leak, suspect demand ischemia in setting of hypoxia Hypertension Osteoarthritis Severe debility s/p prolonged hospitalization due to Covid and GI bleed Anemia of chronic disease Concern for possible bacterial pneumonia, difficult to assess due to recent Covid infection and x-ray findings. Continue Rocephin and azithromycin for presumed community-acquired pneumonia for now. Pulmonology consulted UA grossly positive for bacteria and yeast. Should be covered by Rocephin, added Diflucan on admission Infectious disease consulted given different infections and recent Covid pneumonia Continue home medications as appropriate Physical therapy consulted Patient has not been ambulatory for several weeks due to hypoxia and debility from her recent Covid infection Patient has home health and was to start home physical therapy today Follow-up cultures Code: Full Dispo: Anticipate discharge home with home health/PT in 2-3 days
[2021-07-25 07:03] LABS: Blood Morphology Comment NOT SEEN (NOT SEEN); Platelet Estimate ADEQ
[2021-07-25] MEDS ORDERED: HOME MED 1 EA UNK (Lisinopril [Zestril] 40 MG Tablet) PO SCH (08:00)
[2021-07-25] MEDS: FLUCONAZOLE 100 MG TAB PO SCH (08:45)
[2021-07-25] MEDS: lisinopriL 20 MG TAB PO SCH (08:45)
[2021-07-25] MEDS: ENOXAPARIN 40 MG/0.4 ML SQ SCH (08:45)
[2021-07-25] MEDS ORDERED: AZITHROMYCIN IV 500 MG in NA CHLORIDE 0.9% 250 ML IVPB SCH (09:00)
--- NOTE | 2021-07-25 10:27 | P.CNS ---
Date of Consult: 07/25/21 Chief Complaint: Fever, hypoxia History of Present Illness: Patient is a 70-year-old female with a past medical history of hypertension, hyperlipidemia and, and recent cover 19 pneumonia who presented to the emergency department complaining of fever and hypoxia. Patient states that her symptoms started yesterday. Patient had COVID 19 pneumonia and was discharged from the hospital in mid June. Patient with home without oxygen. Family reported that since then the patient has been bedbound. Patient is very deconditioned and has dyspnea on exertion. UA grossly positive, urine and blood cultures pending. Patient empirically placed on Diflucan, Rocephin, and azithromycin. The patient currently denies nausea/vomiting/diarrhea/shortness of breath/chest pain. Patient reports dysuria and dyspnea on exertion. Currently utilizing 2 L of oxygen via nasal cannula. Allergies No Known Allergies Allergy (Verified 04/13/15 10:06) Home Medications: Lidocaine Viscous 2% Soln [Xylocaine Viscous Oral 2%] 3 tsp PO Q6HP PRN 04/13/15 Lisinopril [Zestril] 40 mg PO DAILY WITH BREAKFAST 04/13/15 Mag Hydrox/Al Hydrox/Simeth [Antacid Liquid] 2 tbsp PO Q6HP PRN 04/13/15 Phenobarb/Hyoscy/Atropine/Scop [ Elixir] 32.4 mg PO Q6HP PRN 04/13/15 - Past Medical/Surgical History Diabetic: No -: HTN -: HLD -: Osteoarthritis. - Social History Alcohol use: No CD- Drugs: No Caffeine use: No Place of Residence: Home Review of Systems 10-point ROS is otherwise unremarkable Physical Examination Temp Pulse Resp BP Pulse Ox 97.0 F 70 16 125/71 96 07/25/21 08:00 07/25/21 08:00 07/25/21 08:00 07/25/21 08:00 07/25/21 08:00 General: Alert, In no apparent distress, Oriented x3 HEENT: Atraumatic, Normocephalic Neck: Supple, 2+ carotid pulse no bruit, JVD not distended Respiratory: Clear to auscultation bilaterally, Normal air movement Cardiovascular: No edema, Regular rate/rhythm, Normal S1 S2 Capillary refill: <2 Seconds Gastrointestinal: Normal bowel sounds, Soft and benign, Non-distended Musculoskeletal: No clubbing, No swelling, No contractures Integumentary: No rashes, No breakdown, No significant lesion Laboratory Data (last 24 hrs) 07/24/21 12:15: PT 16.0 H, INR 1.39 07/24/21 12:15: WBC 12.90 H, Hgb 9.5 L, Hct 29.5 L, Plt Count 304 07/24/21 12:15: Sodium 143, Potassium 3.0 L, BUN 9, Creatinine 0.64, Glucose 101, Magnesium 1.5 L D, Total Bilirubin 0.8, AST 39 H, ALT 27, Alkaline Phosphatase 64 Conclusions/Impression: Assessment/plan UTI Urinalysis grossly positive, urine culture pending. Continue empiric Rocephin until cultures are obtained. Possible pneumonia Unlikely patient has active acute pneumonia. Chest x-ray showed bilateral airspace disease, likely reflective of recent COVID 19 PNA. Patient has dyspnea on exertion however has been bed-bound since been June and is severely deconditioned. Continue oxygen supplementation, wean as tolerated. Anemia Continue to monitor H&H Leukocytosis of left shift Continue Rocephin, continue to monitor WBC trend Medical management per primary team. Plan of care discussed with Thank you for consultation
[2021-07-25] MEDS: CEFTRIAXONE 1 GM/NS 50 ML 1 GM/50 ML BAG IV SCH (11:00)
[2021-07-25] MEDS ORDERED: LOPERAMIDE HCL 2 MG CAPSULE PO PRN (16:33)
--- NOTE | 2021-07-25 16:40 | EKG ---
Test Date: 2021-07-24 Test Time: 12:11:09 [place] Member: ALP MEASUREMENT RESULTS: Intervals: Rate: 113 IL: 144 QRSD: 72 QT: 334 QTc: 458 [place]: P: 33 IL: 144 QRS: 12 T: 225 INTERPRETIVE STATEMENTS: Sinus tachycardia Left ventricular hypertrophy with repolarization abnormality Abnormal ECG Compared to ECG 06/05/2021 10:23:42 Early repolarization now present Sinus rhythm no longer present T-wave abnormality no longer present Possible ischemia no longer present Electronically Signed On 07-25-21 16:35:58 CDT by Ryan Lua
[2021-07-25] MEDS: LACTOBACILLUS/ACIDOPHILUS TAB PO SCH (20:16)
[2021-07-26] MEDS: ALBUTEROL 2.5 MG/3 ML NEB SOL NEB SCH ×2 (01:50→08:00)
[2021-07-26] MEDS: IPRATROPIUM BROM 0.5MG/2.5ML NEB SCH ×4 (01:50→20:00)
[2021-07-26 04:15] LABS: Absolute Lymphocytes (CBC) 1.5 K/uL (0.7-4.9); Basophils % 0.6 % (0-1.3); Hematocrit 24.7 % (36.0-45.0); Lymphocytes % 13.6 % (15.3-44.8); MPV 8.3 fL (7.6-11.3); RBC Red Blood Cell Count 2.59 M/uL (3.86-4.86)
[2021-07-26 04:40] LABS: BUN Blood Urea Nitrogen 11 mg/dL (7-18); Bicarbonate 27 mmol/L (21-32); Glucose Level 130 mg/dL (74-106); Potassium 4.3 mmol/L (3.5-5.1); Sodium Level 145 mmol/L (136-145)
--- NOTE | 2021-07-26 06:31 | P.PN ---
Date of Service: 07/26/21 Subjective: improving, breathing more comfortably on room air, no longer with dysuria working with PT ROS: 10 point review of systems otherwise negative Physical exam GEN: Alert, oriented, NAD HEENT: Normal conjunctiva, sclera anicteric CV: Regular rate and rhythm, trace pedal edema Pulm: Nonlabored respiration on RA ABD: Soft, nontender, nondistended MSK: No joint tenderness Neuro: Normal speech, normal affect, generalized weakness Problem list Acute bacterial cystitis with candidiasis Acute hypoxemic respiratory failure secondary to possible pneumonia, with recent Covid pneumonia Troponin leak, suspect demand ischemia in setting of hypoxia Hypertension Osteoarthritis Severe debility s/p prolonged hospitalization due to Covid and GI bleed Anemia of chronic disease Concern for possible bacterial pneumonia, difficult to assess due to recent Covid infection and x-ray findings. Pulm and ID consulted. Antibiotics changed. continue diflucan Infectious disease consulted given different infections and recent Covid pneumonia Continue home medications Physical therapy consulted Patient has not been ambulatory for several weeks due to hypoxia and debility from her recent Covid infection Patient has home health and was to start home physical therapy yesterday Follow-up cultures - blood no growth, urine: mixed, elevated inflammatory markers steroids started by pulm for possible residual covid pneumonia Code: Full Dispo: Anticipate discharge home with home health/PT tomorrow Time Spent Managing Pts Care (In Minutes): 30
--- NOTE | 2021-07-26 07:08 | ECHO ---
HEIGHT: 5 ft 6 in WEIGHT: 200 lb 0 oz DATE OF STUDY: 07/25/[address]: Aixa Duran 2-DIMENSIONAL: YES M.MODE: YES DOPPLER: YES COLOR FLOW: YES TDS: NO PORTABLE: NO DEFINITY: NO BUBBLE STUDY: NO DIAGNOSIS: ELEVATED TROPONIN CARDIAC HISTORY: CATHERIZATION: NO SURGERY: NO PROSTHETIC VALVE: NO PACEMAKER: NO MEASUREMENTS (cm) DIASTOLIC (NORMALS) SYSTOLIC (NORMALS) IVSd 1.0 (0.6-1.2) LA Diam 2.4 (1.9-4.0) LVEF 58% LVIDd 3.5 (3.5-5.7) LVIDs 2.5 (2.0-3.5) %FS 30% LVPWd 1.0 (0.6-1.2) Ao Diam 2.7 (2.0-3.7) 2 DIMENSIONAL ASSESSMENT: RIGHT ATRIUM: NORMAL LEFT ATRIUM: NORMAL RIGHT VENTRICLE: NORMAL LEFT VENTRICLE: NORMAL TRICUSPID VALVE: NORMAL MITRAL VALVE: NORMAL PULMONIC VALVE: NORMAL AORTIC VALVE: NORMAL PERICARDIAL EFFUSION: NONE AORTIC ROOT: NORMAL LEFT VENTRICULAR WALL MOTION: NORMAL DOPPLER/COLOR FLOW: NORMAL COMMENTS: NORMAL 2D ECHOCARDIOGRAM WITH DOPPLER. NO WALL MOTION ABNORMALITY. NO EFFUSION. TECHNOLOGIST: Radha BASHIR
[2021-07-26] MEDS: CEFTRIAXONE 1 GM/NS 50 ML 1 GM/50 ML BAG IV SCH (08:11)
[2021-07-26] MEDS: ENOXAPARIN 40 MG/0.4 ML SQ SCH (08:12)
[2021-07-26] MEDS: lisinopriL 20 MG TAB PO SCH (08:12)
[2021-07-26] MEDS: FLUCONAZOLE 100 MG TAB PO SCH (08:12)
[2021-07-26] MEDS: LACTOBACILLUS/ACIDOPHILUS TAB PO SCH ×2 (08:12→20:39)
--- NOTE | 2021-07-26 08:57 | P.CNS ---
Date of Consult: 07/25/21 Chief Complaint: Fever, hypoxia History of Present Illness: Age 70 poor historian metabolic synd, hx of covid penumonia aw fever and hypoxemia, DC from hosp Sep in O2 , C/o SOB Allergies No Known Allergies Allergy (Verified 04/13/15 10:06) Home Medications: Lidocaine Viscous 2% Soln [Xylocaine Viscous Oral 2%] 3 tsp PO Q6HP PRN 04/13/15 Lisinopril [Zestril] 40 mg PO DAILY WITH BREAKFAST 04/13/15 Mag Hydrox/Al Hydrox/Simeth [Antacid Liquid] 2 tbsp PO Q6HP PRN 04/13/15 Phenobarb/Hyoscy/Atropine/Scop [ Elixir] 32.4 mg PO Q6HP PRN 04/13/15 - Past Medical/Surgical History Diabetic: No -: HTN -: HLD -: Osteoarthritis. -: COVID - Social History Alcohol use: No CD- Drugs: No Caffeine use: No Place of Residence: Home Review of Systems is unable to be obtained Physical Examination Temp Pulse Resp BP Pulse Ox 97.2 F 93 H 16 122/65 93 07/26/21 08:00 07/26/21 08:00 07/26/21 08:00 07/26/21 08:00 07/26/21 08:00 General: Alert, Oriented x1 Respiratory: Crackles/rales Cardiovascular: No edema, Normal S1 S2 - Problems (1) Pneumonia Current Visit: Yes Status: Acute Plan: AGe 70 Aw fever and hypoxemia. DC from COVID penumonia. labs rev, poss pneumonia. TX wiht levaquin and Doxy, RA sat oy Evaluate for DC on Levaquin and Doxy chest x-ray reviewed significant changes left worse than the right possibly underlying residual Covid pneumonia in addition to bacterial infection also add some dexamethasone Qualifiers: Pneumonia type: due to unspecified organism
[2021-07-26] MEDS: DOXYCYCLINE 100 MG CAP PO SCH ×2 (10:25→20:39)
[2021-07-26] MEDS: levoFLOXacin 750 MG TAB PO SCH (10:26)
--- NOTE | 2021-07-26 10:53 | P.PN ---
Subjective Date of Service: 07/26/21 Chief Complaint: Fever, hypoxia Patient seen examined at bedside, doing well no acute complaints Review of Systems 10-point ROS is otherwise unremarkable Physical Examination - Vital Signs Temperature: 97.2 F Blood Pressure: 122/65 Pulse: 93 Respirations: 16 Pulse Ox (%): 93 - Studies Laboratory Last Values WBC 12.90 K/uL (4.3-10.9) H 07/24/21 12:15 RBC 3.09 M/uL (3.86-4.86) L 07/24/21 12:15 Hgb 9.5 g/dL (12.0-15.0) L 07/24/21 12:15 Hct 29.5 % (36.0-45.0) L 07/24/21 12:15 MCV 95.6 fL (80-100) 07/24/21 12:15 MCH 30.7 pg (27.0-35.0) 07/24/21 12:15 MCHC 32.1 g/dL (32.0-36.0) 07/24/21 12:15 RDW 19.8 % (12.1-15.2) H 07/24/21 12:15 Plt Count 304 K/uL (152-406) 07/24/21 12:15 MPV 8.3 fL (7.6-11.3) 07/24/21 12:15 Neutrophils % 64.7 % (41.7-73.7) 07/24/21 12:15 Lymphocytes % 24.6 % (15.3-44.8) 07/24/21 12:15 Monocytes % 10.1 % (3.3-12.3) 07/24/21 12:15 Eosinophils % 0.0 % (0-4.4) 07/24/21 12:15 Basophils % 0.6 % (0-1.3) 07/24/21 12:15 Absolute Neutrophils 8.3 K/uL (1.8-8.0) H 07/24/21 12:15 Absolute Lymphocytes 3.2 K/uL (0.7-4.9) 07/24/21 12:15 Absolute Monocytes 1.3 K/uL (0.1-1.3) 07/24/21 12:15 Absolute Eosinophils 0.0 K/uL (0-0.5) 07/24/21 12:15 Absolute Basophils 0.1 K/uL (0-0.5) 07/24/21 12:15 PT 16.0 SECONDS (9.5-12.5) H 07/24/21 12:15 INR 1.39 07/24/21 12:15 Sodium 143 mmol/L (136-145) 07/24/21 12:15 Potassium 3.0 mmol/L (3.5-5.1) L 07/24/21 12:15 Chloride 109 mmol/L (98-107) H 07/24/21 12:15 Carbon Dioxide 27 mmol/L (21-32) 07/24/21 12:15 BUN 9 mg/dL (7-18) 07/24/21 12:15 Creatinine 0.64 mg/dL (0.55-1.3) 07/24/21 12:15 Estimated GFR > 90 mL/min (=/>90) 07/24/21 12:15 Glucose 101 mg/dL (74-106) 07/24/21 12:15 Hemoglobin A1c 6.3 % (4.2-6.3) 07/24/21 12:15 Lactic Acid 1.6 mmol/L (0.4-2.0) 07/24/21 12:15 Calcium 7.8 mg/dL (8.5-10.1) L 07/24/21 12:15 Magnesium 1.5 mg/dL (1.8-2.4) L D 07/24/21 12:15 Total Bilirubin 0.8 mg/dL (0.2-1.0) 07/24/21 12:15 Direct Bilirubin 0.2 mg/dL (0-0.2) 07/24/21 12:15 AST 39 U/L (15-37) H 07/24/21 12:15 ALT 27 U/L (12-78) 07/24/21 12:15 Alkaline Phosphatase 64 U/L (45-117) 07/24/21 12:15 Rapid Troponin I 0.07 ng/mL (0.0-0.045) H 07/24/21 12:15 NT-Pro-B Natriuret Pep 653 pg/mL (<125) H 07/24/21 12:15 Serum Total Protein 6.2 g/dL (6.4-8.2) L 07/24/21 12:15 Albumin 2.0 g/dL (3.4-5.0) L 07/24/21 12:15 Globulin 4.2 g/dL (2.3-3.5) H 07/24/21 12:15 Albumin/Globulin Ratio 0.5 (1.1-1.8) L 07/24/21 12:15 Procalcitonin 0.35 ng/mL (<0.050) H 07/24/21 12:15 TSH 0.660 uIU/mL (0.360-3.740) 07/24/21 12:15 Free T4 1.38 ng/dL (0.76-1.46) 07/24/21 12:15 Urine pH 6.0 (5.0-7.0) 07/24/21 12:58 Ur Specific [place] >=1.030 (1.005-1.030) 07/24/21 12:58 Glucose (UA)(Auto) Negative (Negative) 07/24/21 12:58 Urine Ketones Trace (Negative) H 07/24/21 12:58 Urine Blood 2+ (Negative) H 07/24/21 12:58 Urine Nitrite Negative (Negative) 07/24/21 12:58 Ur Leukocyte Esterase 1+ (Negative) H 07/24/21 12:58 Urine RBC <5 /HPF (NONE SEEN) 07/24/21 13:05 Urine WBC 20-50 /HPF (<5) H 07/24/21 13:05 Ur Squamous Epith Cells <5 /HPF (NONE SEEN) 07/24/21 13:05 Urine Bacteria 20-50 /HPF (<20) H 07/24/21 13:05 Urine Mucus Heavy /HPF (NONE SEEN) 07/24/21 13:05 Urine Yeast Present (NONE SEEN) H 07/24/21 13:05 Urine Yeast (Budding) Present (NONE SEEN) H 07/24/21 13:05 Urine Culture Reflexed Not needed 07/24/21 13:05 Urine Total Protein 2+ (Negative) H 07/24/21 12:58 SARS-CoV-2 Rap RNA(RT-PCR) Negative (NEGATIVE) 07/24/21 12:14 Microbiology Data (last 24 hrs): 07/24/21 13:05 Catheterized Urine [place] Count - Final No growth. 07/24/21 13:05 Catheterized Urine - Final No growth. Assessment And Plan - Plan Physical exam: General: Alert, In no apparent distress, Oriented x3 HEENT: Atraumatic, Normocephalic Neck: Supple, 2+ carotid pulse no bruit, JVD not distended Respiratory: Clear to auscultation bilaterally, Normal air movement Cardiovascular: No edema, Regular rate/rhythm, Normal S1 S2 Capillary refill: <2 Seconds Gastrointestinal: Normal bowel sounds, Soft and benign, Non-distended Musculoskeletal: No clubbing, No swelling, No contractures Integumentary: No rashes, No breakdown, No significant lesion Conclusions/Impression: Assessment/plan UTI Urinalysis grossly positive, urine culture showed no growth. Due to grossly positive q.a.m. recommend continuing treatment for UTI. Patient can be sent home on oral nitrofurantoin. Continue fluconazole as this is 2nd time patient has had yeast in her urine. Possible pneumonia Unlikely patient has active acute pneumonia. Chest x-ray showed bilateral airspace disease, likely reflective of recent COVID 19 PNA. Patient has dyspnea on exertion however has been bed-bound since been June and is severely deconditioned. Continue oxygen supplementation, wean as tolerated. Anemia Continue to monitor H&H Leukocytosis of left shift Continue Rocephin, continue to monitor WBC trend Medical management per primary team. Plan of care discussed with Thank you for consultation Physician Review: Patient Assessed, Agree with Above Assessment and Plan
--- NOTE | 2021-07-26 11:33 | RAD REPORT ---
EXAM DESCRIPTION: RAD - Chest Single View - 07/26/2021 11:03 am CLINICAL HISTORY: pneumonia COMPARISON: Chest Single View dated 07/24/2021; Chest Single View dated 06/25/2021; Chest Single View dated 06/18/2021; Chest Single View dated 06/11/2021 FINDINGS: Lines: None. Lungs: Moderate patchy bilateral airspace disease is similar to prior. Pleural: No significant pleural effusions or pneumothorax. Cardiac: Mild cardiomegaly . Bones: No acute fractures. Other: IMPRESSION: Moderate bilateral airspace disease similar to 07/24/2021 and consistent with multifocal pneumonia.
[2021-07-26] MEDS: dexAMETHasone 4 MG TAB PO SCH ×2 (15:24→20:39)
[2021-07-27] MEDS: IPRATROPIUM BROM 0.5MG/2.5ML NEB SCH ×2 (02:00→08:08)
[2021-07-27 05:01] LABS: Hematocrit 25.6 % (36.0-45.0); MPV 8.3 fL (7.6-11.3)
[2021-07-27 05:52] LABS: BUN Blood Urea Nitrogen 10 mg/dL (7-18); Bicarbonate 26 mmol/L (21-32); Ferritin 1494.9 ng/mL (8-388); Glucose Level 136 mg/dL (74-106); Magnesium 1.6 mg/dL (1.8-2.4); Potassium 4.3 mmol/L (3.5-5.1); Sodium Level 144 mmol/L (136-145)
[2021-07-27] MEDS: FLUCONAZOLE 100 MG TAB PO SCH (08:01)
[2021-07-27] MEDS: dexAMETHasone 4 MG TAB PO SCH (08:01)
[2021-07-27] MEDS: ENOXAPARIN 40 MG/0.4 ML SQ SCH (08:01)
[2021-07-27] MEDS: DOXYCYCLINE 100 MG CAP PO SCH (08:01)
[2021-07-27] MEDS: lisinopriL 20 MG TAB PO SCH (08:01)
[2021-07-27] MEDS: LACTOBACILLUS/ACIDOPHILUS TAB PO SCH (08:01)
[2021-07-27] MEDS: levoFLOXacin 750 MG TAB PO SCH (08:01)
--- NOTE | 2021-07-27 08:21 | RAD REPORT ---
EXAM DESCRIPTION: [place] Single View07/27/2021 6:55 am CLINICAL HISTORY: Shortness breath COMPARISON: July 26 FINDINGS: Slight improvement in the diffuse bilateral pulmonary opacities. Heart is mildly enlarged IMPRESSION: Slight improvement in the bilateral pulmonary opacities probably pneumonia
[2021-07-27] MEDS ORDERED: MAGNESIUM SULFATE 1 gm IVPB 1 GM/100 ML BAG IV ONE (09:00)
[2021-07-27 09:20] VITALS: BP 140/74; TEMP 97.5
[2021-07-27 09:39] VITALS: O2SAT 99
--- NOTE | 2021-07-27 16:58 | P.DS ---
Admission Date: 07/24/21 Discharge Date: 07/27/21 Disposition: ROUTINE DISCHARGE Discharge Condition: GOOD Reason for Admission: Fever, hypoxia Consultations: Infectious disease - Dr. falk Pulmonology - Dr. Hansen Procedures: CXR (07/24): IMPRESSION: Patchy bilateral airspace disease could reflect either acute or sequela of recent pneumonia. Though partially imaged, similar findings were present on the abdomen/pelvis CT from 06/18/2021. CXR (07/26): IMPRESSION: Moderate bilateral airspace disease similar to 07/24/2021 and consistent with multifocal pneumonia. CXR (07/27): IMPRESSION: Slight improvement in the bilateral pulmonary opacities probably pneumonia Echocardiogram (07/25): Normal echo with Doppler. No wall motion abnormality. No effusion. LVEF: 58% Problem list Acute bacterial cystitis with candidiasis Acute hypoxemic respiratory failure secondary to possible pneumonia, with recent Covid pneumonia Troponin leak, suspect demand ischemia in setting of hypoxia Hypertension Osteoarthritis Severe debility s/p prolonged hospitalization due to Covid and GI bleed Anemia of chronic disease Brief History of Present Illness: 70-year-old female with a past medical history significant for hypertension, hyperlipidemia, COVID-19 pneumonia, osteoarthritis who presents with complaint of fever and hypoxia onset yesterday. Patient had COVID-19 pneumonia and was discharged from the hospital in mid-June after a 2 to 3 weeks stay in the hospital.. Family reported that since then patient has been bedbound but patient's O2 sat was within normal limits until yesterday when O2 sat went as low as to 82%. Patient reports associated signs and symptoms of cough, shortness of breath with exertion, fatigue and weakness. Patient denies any other signs and symptoms. Symptoms are aggravated with exertion and relieved by nothing. Hospital Course: Patient was empirically treated with IV antibiotics for possible bacterial superinfection pneumonia and UTI. UA with bacteria and yeast. Infectious disease and pulmonology were both consulted. Pulmonology recommended treatment with steroids for potential residual COVID-19 pneumonia. Recommended discharge home with Levaquin and doxycycline. Also to continue Diflucan. Yeast was noted in her urine during her prior hospitalization as well. Patient had gradual improvement of her symptoms. She is breathing comfortably on room air. She was attempting to work as much as she could with physical therapy. She is discharged home to continue home health and home physical therapy. Follow-up with PCP in 3 to 5 days. Follow-up with pulmonology in 1 week. Vital Signs/Physical Exam: Physical exam GEN: Alert, oriented, NAD HEENT: Normal conjunctiva, sclera anicteric CV: Regular rate and rhythm, trace pedal edema Pulm: Nonlabored respiration on RA ABD: Soft, nontender, nondistended MSK: No joint tenderness Neuro: Normal speech, normal affect, generalized weakness Temp Pulse Resp BP Pulse Ox 97.5 F 99 H 18 140/74 92 07/27/21 08:00 07/27/21 08:00 07/27/21 08:00 07/27/21 08:00 07/27/21 08:00 Laboratory Data at Discharge: WBC 7.90 K/uL (4.3-10.9) D 07/27/21 04:09 Hgb 8.4 g/dL (12.0-15.0) L 07/27/21 04:09 Hct 25.6 % (36.0-45.0) L 07/27/21 04:09 Plt Count 311 K/uL (152-406) 07/27/21 04:09 PT 16.0 SECONDS (9.5-12.5) H 07/24/21 12:15 INR 1.39 07/24/21 12:15 Sodium 144 mmol/L (136-145) 07/27/21 04:09 Potassium 4.3 mmol/L (3.5-5.1) 07/27/21 04:09 BUN 10 mg/dL (7-18) 07/27/21 04:09 Creatinine 0.59 mg/dL (0.55-1.3) 07/27/21 04:09 Glucose 136 mg/dL (74-106) H 07/27/21 04:09 Magnesium 1.6 mg/dL (1.8-2.4) L 07/27/21 04:09 Total Bilirubin 0.8 mg/dL (0.2-1.0) 07/24/21 12:15 AST 39 U/L (15-37) H 07/24/21 12:15 ALT 27 U/L (12-78) 07/24/21 12:15 Alkaline Phosphatase 64 U/L (45-117) 07/24/21 12:15 Troponin I 0.02 ng/mL (0.0-0.045) 07/25/21 04:47 Home Medications: Lidocaine Viscous 2% Soln [Xylocaine Viscous Oral 2%*] 3 tsp PO Q6HP PRN 04/13/15 Lisinopril [Zestril] 40 mg PO DAILY WITH BREAKFAST 04/13/15 Mag Hydrox/Al Hydrox/Simeth [Antacid Liquid] 2 tbsp PO Q6HP PRN 04/13/15 Phenobarb/Hyoscy/Atropine/Scop [ Elixir] 32.4 mg PO Q6HP PRN 04/13/15 Doxycycline Hyclate 100 mg PO BID 7 Days #14 tablet 07/27/21 Fluconazole [Diflucan] 200 mg PO DAILY 12 Days #12 tablet 07/27/21 dexAMETHasone [Decadron*] 4 mg PO BID 10 Days #20 tab 07/27/21 levoFLOXacin [Levaquin*] 750 mg PO DAILY 7 Days #7 tab 07/27/21 New Medications: dexAMETHasone [Decadron*] 4 mg PO BID 10 Days #20 tab Fluconazole [Diflucan] 200 mg PO DAILY 12 Days #12 tablet Doxycycline Hyclate 100 mg PO BID 7 Days #14 tablet levoFLOXacin [Levaquin*] 750 mg PO DAILY 7 Days #7 tab Physician Discharge Instructions: You were treated for possible UTI and bacterial pneumonia. Unclear if some residual covid pneumonia as well. Pulmonology and Infectious Disease were consulted. Urine and blood cultures did not grow any bacteria. Recommended discharge home with 7 more days of antibiotics (doxycycline and levofloxacin) and 12 more days of fluconazole (yeast was noted in your urine). You are discharged with steroids as well to help with your breathing. You were breathing well with oxygen saturation > 92% for >2 days on room air, and did not qualify for home oxygen. Continue home health / home PT. Follow up with PCP in 3-5 days Follow up with Dr. Hansen in ~1 week. Diet: AHA Activity: Fall precautions Followup: López Meehan MD [Primary Care Provider] - (Call to schedule appointment) Time spent managing pt's care (in minutes): 35
--- NOTE | 2021-07-29 11:21 | CON ---
Date of Consultation: 07/25/2021 Reason For Consultation: Elevated troponin. History Of Present Illness: Ms. Chowdary is a 70, has a history of hypertension, otherwise fairly heal thy, comes in with fever, elevated white count, hypokalemia, pneumonia, recent COVID, positive UTI, a nd elevated white count. Hemoglobin is 8. She was found to have a troponin 0.06. No cardiac sympto ms reported. She denied any chest pain. Denied any nausea, vomiting, diaphoresis, PND, orthopnea, p edal edema, palpitation, or syncope. Past Medical History: As stated earlier. Allergies: NONE. Review of Systems: Negative. Social History: Negative. Family History: Negative. Medications: Include lisinopril and magnesium at home. Physical Examination: Vital Signs: Stable. Afebrile. HEENT: Negative. Neck: Supple with no bruit. Chest: Clear to auscultation and percussion. Cardiac Exam: Revealed a regular rhythm and rate. No murmurs, gallops, or rubs. Abdomen: Benign. Extremities: Revealed no clubbing, cyanosis, or edema. Diagnostic Data: As stated earlier. EKG is normal. Chest x-ray is still consistent with recent COV ID pneumonia. Impression And Plan: Elevated troponin secondary to demand ischemia from anemia, urinary tract infec tion, recent COVID. Echocardiogram is pending. We will see what that showed before making any furth er decisions. Otherwise, continue present regimen. This is not an acute coronary syndrome. It may be worth having her do an outpatient Lexiscan down the road. SARAH/FITZ Voice ID: [id number] Report ID: [id number]
== END 2021-07-27 10:35 | disposition home or self-care (01) | DRG 193 ==
LOC: ER 11:43 → ERHOLD 17:03 → 4TH 18:04
PROVIDERS: ADMIT Hospitalist; ATTEND Hospitalist
DX: J15.9 Unspecified bacterial pneumonia (principal); J96.01 Acute respiratory failure with hypoxia; N30.00 Acute cystitis without hematuria; B37.41 Candidal cystitis and urethritis; J44.0 Chronic obstructive pulmonary disease with (acute) lower respiratory infection; I24.8 Other forms of acute ischemic heart disease; D63.8 Anemia in other chronic diseases classified elsewhere; I10 Essential (primary) hypertension; M19.90 Unspecified osteoarthritis, unspecified site; E87.6 Hypokalemia; E83.42 Hypomagnesemia; E78.5 Hyperlipidemia, unspecified; D72.829 Elevated white blood cell count, unspecified; B96.89 Other specified bacterial agents as the cause of diseases classified elsewhere; R79.89 Other specified abnormal findings of blood chemistry; R53.81 Other malaise; R77.8 Other specified abnormalities of plasma proteins; Z86.16 Personal history of COVID-19; Z74.01 Bed confinement status; Z79.899 Other long term (current) drug therapy; Z20.822 Contact with and (suspected) exposure to COVID-19
CPT/HCPCS: 36415; 71045; 80048; 80076; 81003; 81015; 82728; 83036; 83605; 83735; 83880; 84132; 84145; 84439; 84443; 84484; 85025; 85027; 85610; 86140; 87040; 87086; 87088; 93005; 93306; 96365; 96367; 97110; 97161; 97530; 99284; J0456; J0696; J1650; J2920; J3475; J3480; J7040; J7050; J8540; U0003

== ENCOUNTER 2021-08-22 15:13 | Inpatient (IN) | payer OTHER ==
--- NOTE | 2021-08-22 16:03 | RAD REPORT ---
EXAM DESCRIPTION: RAD - Chest Single View - 08/22/2021 3:48 pm CLINICAL HISTORY: dysphagia Chest pain. COMPARISON: Chest Single View dated 07/27/2021; Chest Single View dated 07/26/2021; Chest Single Vie w dated 07/24/2021; Chest Single View dated 06/25/2021 FINDINGS: Portable technique limits examination quality. Mild basilar lung opacities are present, greater on the left, moderately improved since comparative r adiograph. This may represent areas of postinflammatory residual. The heart is normal in size. No dis placed fractures.
[2021-08-22 17:12] LABS: Absolute Lymphocytes (CBC) 1.9 K/uL (0.7-4.9); Basophils % 0.8 % (0-1.3); Hematocrit 29.4 % (36.0-45.0); Lymphocytes % 20.1 % (15.3-44.8); MPV 8.3 fL (7.6-11.3); RBC Red Blood Cell Count 3.06 M/uL (3.86-4.86)
[2021-08-22 17:15] LABS: Protime INR 1.32
[2021-08-22] MEDS ORDERED: NA CHLORIDE 0.9% 1,000 ML ONE ×2 (17:21→18:28)
[2021-08-22] MEDS ORDERED: CEFEPIME 1 GM/VIAL ONE (17:21)
[2021-08-22] MEDS ORDERED: NA CHLORIDE 0.9% 0 ML ONE (17:21)
[2021-08-22] MEDS ORDERED: NA CHLORIDE 0.9% 100 ML ONE (17:22)
[2021-08-22] MEDS ORDERED: ACETAMINOPHEN 500 MG TAB ONE (18:28)
[2021-08-22 18:48] LABS: ALT/SGPT 28 U/L (12-78); AST/SGOT 54 U/L (15-37); Alkaline Phosphatase 83 U/L (45-117); BUN Blood Urea Nitrogen 28 mg/dL (7-18); Bicarbonate 23 mmol/L (21-32); Bilirubin Direct 0.2 mg/dL (0-0.2); Bilirubin Total 0.6 mg/dL (0.2-1.0); Glucose Level 125 mg/dL (74-106); Magnesium 1.6 mg/dL (1.8-2.4); NT PRO-BNP 207 pg/mL (<125); Potassium 3.3 mmol/L (3.5-5.1); Protein, Total 6.2 g/dL (6.4-8.2); Sodium Level 140 mmol/L (136-145); Troponin (Emerg Dept Use Only) < 0.02 ng/mL (0.0-0.045)
[2021-08-22 18:52] LABS: SARS-COV-2 RT PCR NEGATIVE (NEGATIVE)
[2021-08-22 18:57] LABS: Urine Blood 2+ (Negative); Urine Glucose Negative (Negative); Urine Protein 2+ (Negative); Urine Specific Gravity 1.025 (1.005-1.030); Urine pH 5.5 (5.0-7.0)
[2021-08-22 19:26] LABS: Urine Bacteria >50 /HPF (<20); Urine RBC <5 /HPF (NONE SEEN); Urine Yeast MANY (NONE SEEN)
[2021-08-22] MEDS ORDERED: MAGNESIUM SULFATE 1 gm IVPB 1 GM/100 ML BAG IV ONE (19:27)
[2021-08-22] MEDS ORDERED: POTASSIUM 25 MEQ EFFERV TAB ONE (19:27)
--- NOTE | 2021-08-22 20:14 | RAD REPORT ---
EXAM DESCRIPTION: CT - Head Brain Wo Cont - 08/22/2021 7:40 pm CLINICAL HISTORY: difficulty swallowing Headache, drowsiness COMPARISON: No comparisons TECHNIQUE: All CT scans are performed using dose optimization technique as appropriate and may inclu de automated exposure control or mA/KV adjustment according to patient size. FINDINGS: No intracranial hemorrhage, hydrocephalus or extra-axial fluid collection. Mild generalize d brain atrophy is present with mild periventricular and deep white matter chronic microvascular isch emic changes.No areas of brain edema or evidence of midline shift. The paranasal sinuses and mastoids are clear. The calvarium is intact. IMPRESSION: No acute intracranial abnormality.
--- NOTE | 2021-08-22 20:16 | RAD REPORT ---
EXAM DESCRIPTION: CT - Soft Tissue Neck W/Contr CLINICAL HISTORY: difficulty swallowing COMPARISON: No comparisons TECHNIQUE All CT scans are performed using dose optimization technique as appropriate and may includ e automated exposure control or mA/KV adjustment according to patient size. FINDINGS: Nasopharyngeal tissues are normal in appearance. Fossa Rosenmller are normal. Symmetric salivary glands noted. Tongue base structures are normal. Epiglottis and aryepiglottic folds are normal. Piriform sinuses are well aerated. Normal thyroid glan d. The vocal cords are normal in appearance. No bulky lymphadenopathy in the neck. Upper lung vazquez are clear. Included intracranial contents are unremarkable. IMPRESSION: No acute or pathological finding is seen.
--- NOTE | 2021-08-22 20:19 | RAD REPORT ---
EXAM DESCRIPTION: CT - Thorax W/ Con CLINICAL HISTORY: Chest pain difficulty swallowing COMPARISON: Soft Tissue Neck W/Contr dated 08/22/2021 FINDINGS: The lungs are mildly to moderately fibrotic particularly in the lung bases. No focal infil trate is seen. No pleural thickening or pleural effusion. No pneumothorax. No axillary, mediastinal or hilar adenopathy. Mild thoracic degenerative changes. No gross upper abdominal finding. All CT scans are performed using dose optimization technique as appropriate and may include automated exposure control or mA/KV adjustment according to patient size. IMPRESSION: Emphysematous changes are present throughout the lungs with fibrotic pattern seen.No acu te intrathoracic process. The USPSTF recommends annual screening for lung cancer with low-dose CT (LDCT) in adults aged 50 to 80 years who have a 20 pack-year smoking history and currently smoke or have quit within the past 15 years.
--- NOTE | 2021-08-22 20:31 | ER ---
Nurse's Notes [facility] Name: Marry Chowdary Age: 70 yrs Sex: Female : 1950 Arrival Date: 08/22/2021 Time: 15:14 Bed 23 Private MD: Diagnosis: UTI/ Urinary tract infection, site not specified;Dysphagia Presentation: 08/22 15:35 Chief complaint: EMS states: toned out for difficulty swallowing food X 1 week and low ld1 grade fever. Coronavirus screen: At this time, the client does not indicate any symptoms associated with coronavirus-19. Ebola Screen: No symptoms or risks identified at this time. Initial Sepsis Screen: Does the patient meet any 2 criteria? RR > 20 per min. Temp <36.0*C (96.8*F)) or > 38.3*C (100.9*F). Yes Does the patient have a suspected source of infection? No. Patient's initial sepsis screen is negative. Risk Assessment: Do you want to hurt yourself or someone else? Patient reports no desire to harm self or others. Onset of symptoms was August 22, 2021. 15:35 Method Of Arrival: EMS: [facility] ld1 15:35 Acuity: [facility] 3 ld1 Triage Assessment: 15:37 General: Appears in no apparent distress. comfortable, Behavior is calm, cooperative, ld1 appropriate for age. Pain: Denies pain. EENT: No signs and/or symptoms were reported regarding the EENT system. Neuro: Level of Consciousness is awake, alert, obeys commands, Oriented to person, place, time, situation, Appropriate for age. Cardiovascular: Denies chest pain, Capillary refill < 3 seconds Patient's skin is warm and dry. Rhythm is sinus tachycardia. Respiratory: Airway is patent Respiratory effort is even, unlabored, Respiratory pattern is regular, symmetrical. GI: Abdomen is non-distended, obese. : No signs and/or symptoms were reported regarding the genitourinary system. Derm: No signs and/or symptoms reported regarding the dermatologic system. Musculoskeletal: No signs and/or symptoms reported regarding the musculoskeletal system. Historical: - Home Meds: 15:37 lisinopril 40 mg Oral tab 1 tab once daily [Active]; ld1 - PMHx: 15:37 Arthritis; Hyperlipidemia; Hypertension; ld1 - PSHx: 15:37 Cholecystectomy; Hysterectomy; ld1 - Immunization history:: Adult Immunizations not up to date, Client reports receiving the 2nd dose of the Covid vaccine. - Social history:: Smoking status: Patient denies any tobacco usage or history of. Patient/guardian denies using alcohol. Screenin:40 Abuse screen: Denies threats or abuse. Denies injuries from another. Nutritional ld1 screening: No deficits noted. Tuberculosis screening: No symptoms or risk factors identified. Fall Risk None identified. Assessment: 15:40 Reassessment: See triage assessment. ld1 17:32 Reassessment: Patient appears in no apparent distress at this time. Patient and/or ld1 family updated on plan of care and expected duration. Pain level reassessed. Patient is alert, oriented x 3, equal unlabored respirations, skin warm/dry/pink. 21:40 Reassessment: No changes from previously documented assessment. General: Appears in no ja3 apparent distress. comfortable. Pain: Denies pain. Respiratory: No deficits noted. Vital Signs: 15:28 BP 115 / 76; Pulse 124; Resp 30; Temp 101.2(O); Pulse Ox 93% on R/A; Weight 104.33 kg; ld1 Height 5 ft. 7 in. (170.18 cm); Pain 0/10; 16:30 BP 135 / 83; Pulse 126; Resp 35; Pulse Ox 95% on R/A; ld1 17:33 BP 102 / 72; Pulse 125; Resp 29; Pulse Ox 95% on R/A; ld1 20:05 BP 105 / 57; Pulse 100; Resp 15; Temp 98.9; Pulse Ox 97% ; Pain 0/10; ja3 21:03 BP 103 / 69; Pulse 100; Resp 20; Temp 98.3; Pulse Ox 99% ; Pain 0/10; ja3 22:38 Temp 98.3; ja3 15:28 Body Mass Index 36.02 (104.33 kg, 170.18 cm) ld1 ED Course: 15:14 Patient arrived in ED. ds1 15:15 Chely Beach RN is Primary Nurse. ld1 15:17 Fausto Winter PA is PHCP. cp 15:18 Bell Mcgee MD is Attending Physician. cp 15:37 Triage completed. ld1 15:37 Arm band placed on right wrist. EKG completed in triage. Results shown to MD. ld1 15:40 Patient has correct armband on for positive identification. Placed in gown. Bed in low ld1 position. Call light in reach. Side rails up X2. shelter monitor on. Pulse ox on. NIBP on. Door closed. Noise minimized. Warm blanket given. 15:40 No provider procedures requiring assistance completed. ld1 15:48 XRAY Chest (1 view) In Process Unspecified. EDMS 19:42 CT Head Brain wo Cont In Process Unspecified. EDMS 19:42 CT Soft Tissue Neck W/contr In Process Unspecified. EDMS 19:42 CT Chest W/ Con In Process Unspecified. EDMS 20:30 Richard Barrios MD is Hospitalizing Provider. cp 22:07 No apparent distress. ja3 22:42 Urine Culture Sent. ja3 22:43 Procalcitonin Sent. ja3 22:43 Lactate Sent. ja3 22:43 Blood Culture Adult (2) Sent. ja3 22:44 Primary Nurse role handed off by Chely Beach, RN ja3 22:44 Shaila Harris, DESTIN is Primary Nurse. ja3 Administered Medications: 17:49 Drug: NS 0.9% 1000 ml Route: IV; Rate: 1000 ml/hr; Site: left antecubital; ld1 17:49 Drug: Cefepime 2 grams Route: IVPB; Rate: 200 ml/hr; Infused Over: 30 mins; Site: left ld1 antecubital; 22:40 Follow up: IV Status: Completed infusion; IV Intake: 400ml ja3 22:41 Follow up: Response: No adverse reaction ja3 18:51 Drug: NS 0.9% 1000 ml Route: IV; Rate: 1 bolus; Site: left antecubital; ld1 22:39 Follow up: Response: No adverse reaction; IV Status: Completed infusion; IV Intake: ja3 1000ml 22:41 Follow up: IV Status: Completed infusion; IV Intake: 1000ml ja3 18:51 Drug: Tylenol 1000 mg Route: PO; ld1 22:38 Follow up: Temp 98.3; Response: No adverse reaction ja3 20:00 Drug: Magnesium Sulfate 1 grams Route: IVPB; Infused Over: 1 hrs; Site: left [facility] antecubital; 22:08 Follow up: IV Status: Completed infusion; IV converted to saline lock; IV Intake: 50ml ja3 22:38 Follow up: Response: No adverse reaction; IV Status: Completed infusion; IV Intake: [id number] 20:00 Drug: Potassium Effervescent Tablet 50 mEq Route: PO; ja3 22:38 Follow up: Response: No adverse reaction ja3 21:29 Drug: DiFLUcan (fluconazole) 200 mg Route: PO; ja3 22:38 Follow up: Response: No adverse reaction ja3 Intake: 22:08 IV: 50ml; Total: 50ml. ja3 22:38 IV: 50ml; Total: 100ml. ja3 22:39 IV: 1000ml; Total: 1100ml. ja3 22:40 IV: 400ml; Total: 1500ml. ja3 22:41 IV: 1000ml; Total: 2500ml. dez3 Outcome: 20:31 Decision to Hospitalize by Provider. cp 22:41 Admitted to Med/surg accompanied by tech, via stretcher, with chart, Report called to bill robles 22:46 Patient left the ED. bill Signatures: Dispatcher [employer] EDKS Zulma Aguilera dsFausto Salter PA PA cp Chely Beach, RN RN ld1 Shaila Harris RN RN bill
--- NOTE | 2021-08-22 20:31 | EDPHYS ---
Physician Documentation [facility] [place] Name: Marry Chowdary Age: 70 yrs Sex: Female : 1950 Arrival Date: 08/22/2021 Time: 15:14 Bed 23 Private MD: ED Physician Bell Mcgee HPI: 08/22 15:40 This 70 yrs old Black Female presents to ER via EMS with complaints of Difficulty cp Swallowing. 15:40 The patient presents with dysphagia, of solids. Onset: The symptoms/episode cp began/occurred 1 week(s) ago. Severity of symptoms: in the emergency department the symptoms are unchanged, despite home interventions. Associated signs and symptoms: Pertinent positives: cough, fever, Pertinent negatives chest pain, diarrhea, flu-like symptoms, headache, sore throat, vomiting, abdominal pain. The patient has not experienced similar symptoms in the past. Historical: - Home Meds: 15:37 lisinopril 40 mg Oral tab 1 tab once daily [Active]; ld1 - PMHx: 15:37 Arthritis; Hyperlipidemia; Hypertension; ld1 - PSHx: 15:37 Cholecystectomy; Hysterectomy; ld1 - Immunization history:: Adult Immunizations not up to date, Client reports receiving the 2nd dose of the Covid vaccine. - Social history:: Smoking status: Patient denies any tobacco usage or history of. Patient/guardian denies using alcohol. ROS: 15:45 Constitutional: Positive for fever, poor PO intake, Negative for body aches, chills. cp 15:45 Eyes: Negative for injury, pain, redness, and discharge. cp 15:45 Cardiovascular: Negative for chest pain, edema, palpitations. 15:45 Respiratory: Positive for cough, Negative for shortness of breath, wheezing. 15:45 Abdomen/GI: Negative for abdominal pain, nausea, vomiting, and diarrhea. 15:45 ENT: Positive for difficulty swallowing food, Negative for drainage from ear(s), ear cp pain, sore throat, difficulty handling secretions, hoarseness. 15:45 Neck: Negative for pain with movement, pain at rest, stiffness. 15:45 Back: Negative for pain at rest, pain with movement. 15:45 Neuro: Negative for altered mental status, headache, numbness, syncope, weakness. 15:45 All other systems are negative. Exam: 15:30 ECG was reviewed by the Attending Physician. cp 15:50 Constitutional: The patient appears in no acute distress, alert, awake, cp non-diaphoretic, non-toxic, well developed, well nourished. 15:50 Head/Face: Normocephalic, atraumatic. cp 15:50 Eyes: Periorbital structures: appear normal, Pupils: equal, round, and reactive to cp light and accomodation, Extraocular movements: intact throughout, Conjunctiva: normal, no exudate, no injection, Sclera: no appreciated abnormality, Lids and lashes: appear normal, bilaterally. 15:50 ENT: External ear(s): are unremarkable, Nose: is normal, Mouth: Lips: dry, Oral mucosa: cp moist, Posterior pharynx: Airway: no evidence of obstruction, patent. 15:50 Neck: ROM/movement: is normal, is supple, without pain, no range of motions limitations, no meningismus. 15:50 Chest/axilla: Inspection: normal, Palpation: is normal, no crepitus, no tenderness. 15:50 Cardiovascular: Rate: tachycardic, Rhythm: irregular, Edema: is not appreciated, JVD: is not appreciated. 15:50 Respiratory: the patient does not display signs of respiratory distress, Respirations: normal, no use of accessory muscles, no retractions, labored breathing, is not present, Breath sounds: are clear throughout, no decreased breath sounds, no stridor, no wheezing. 15:50 Abdomen/GI: Inspection: abdomen appears normal, Bowel sounds: active, all quadrants, Palpation: abdomen is soft and non-tender, in all quadrants. 15:50 Back: pain, is absent, ROM is normal. 15:50 Skin: cellulitis, is not appreciated, no rash present. 15:50 Neuro: Orientation: to person, place \T\ time. Mentation: is normal, Motor: moves all fours, strength is normal, Sensation: is normal. 18:47 ECG was reviewed by the Attending Physician. cp Vital Signs: 15:28 BP 115 / 76; Pulse 124; Resp 30; Temp 101.2(O); Pulse Ox 93% on R/A; Weight 104.33 kg; ld1 Height 5 ft. 7 in. (170.18 cm); Pain 0/10; 16:30 BP 135 / 83; Pulse 126; Resp 35; Pulse Ox 95% on R/A; ld1 17:33 BP 102 / 72; Pulse 125; Resp 29; Pulse Ox 95% on R/A; ld1 20:05 BP 105 / 57; Pulse 100; Resp 15; Temp 98.9; Pulse Ox 97% ; Pain 0/10; ja3 21:03 BP 103 / 69; Pulse 100; Resp 20; Temp 98.3; Pulse Ox 99% ; Pain 0/10; ja3 22:38 Temp 98.3; ja3 15:28 Body Mass Index 36.02 (104.33 kg, 170.18 cm) ld1 MDM: 15:44 Patient medically screened. cp 16:00 Differential diagnosis: tonsillitis, upper respiratory infection, uvulitis, CVA, mass. cp 20:30 Data reviewed: vital signs, nurses notes, lab test result(s), EKG, radiologic studies, cp CT scan, plain films. 20:30 Test interpretation: by ED physician or midlevel provider: ECG, plain radiologic cp studies. Counseling: I had a detailed discussion with the patient and/or guardian regarding: the historical points, exam findings, and any diagnostic results supporting the discharge/admit diagnosis, lab results, radiology results, the need for further work-up and treatment in the hospital. Physician consultation: Kennedy Ball was contacted at 20:30, regarding admission, to the telemetry unit. patient's condition, and will see patient in ED, shortly. 08/22 15:30 Order name: Basic Metabolic Panel; Complete Time: 18:58 cp 08/22 18:59 Interpretation: Normal except: K 3.3; GLUC 125; BUN 28; CRE 1.31; GFR 48; CA 8.1. cp 08/22 15:30 Order name: CBC with Diff; Complete Time: 17:46 cp 08/22 18:39 Interpretation: Normal except: RBC 3.06; HGB 9.8; HCT 29.4; RDW 18.0. 08/22 15:30 Order name: LFT's; Complete Time: 18:58 cp 08/22 19:14 Interpretation: Normal except: AST 54; TP 6.2; ALB 2.0; GLOB 4.2. 08/22 15:30 Order name: Magnesium; Complete Time: 18:58 cp 08/22 19:14 Interpretation: Abnormal: MG 1.6. 08/22 15:30 Order name: NT PRO-BNP; Complete Time: 18:58 08/22 15:30 Order name: PT-INR; Complete Time: 17:47 08/22 15:30 Order name: Troponin (emerg Dept Use Only); Complete Time: 18:58 08/22 15:36 Order name: Blood Culture Adult (2) 08/22 15:36 Order name: Lactate 08/22 15:36 Order name: Procalcitonin 08/22 15:37 Order name: Blood Culture EDND 08/22 15:37 Order name: Lactate; Complete Time: 17:47 EDND 08/22 15:30 Order name: XRAY Chest (1 view); Complete Time: 16:21 08/22 15:37 Order name: Procalcitonin; Complete Time: 18:04 EDND 08/22 20:00 Interpretation: Abnormal: Procalcitonin 0.69. 08/22 16:21 Order name: CT Head Brain wo Cont; Complete Time: 20:26 08/22 16:21 Order name: CT Soft Tissue Neck W/contr; Complete Time: 20:26 08/22 16:21 Order name: CT Chest W/ Con; Complete Time: 20:26 08/22 18:08 Order name: COVID-19/FLU A+B; Complete Time: 18:58 EDND 08/22 18:09 Order name: Urine Microscopic Only; Complete Time: 19:34 EDND 08/22 20:01 Interpretation: Normal except: UWBC TNTC; UBACT >50. 08/22 18:56 Order name: Urine Dipstick-Ancillary; Complete Time: 18:58 EDND 08/22 18:59 Interpretation: Normal except: UKET Trace; UBLD 2+; UPROT 2+; UESTR Trace. 08/22 19:27 Order name: Urine Culture EDND 08/22 21:18 Order name: Lactate Sepsis 2 HR Follow-up EDND 08/22 15:30 Order name: EKG; Complete Time: 15:32 08/22 15:30 Order name: Cardiac monitoring; Complete Time: 15:34 08/22 15:30 Order name: EKG - Nurse/Tech; Complete Time: 15:34 08/22 15:30 Order name: IV Saline Lock; Complete Time: 17:32 cp 08/22 15:30 Order name: Labs collected and sent; Complete Time: 17:32 cp 08/22 15:30 Order name: O2 Per Protocol; Complete Time: 15:34 cp 08/22 15:30 Order name: O2 Sat Monitoring; Complete Time: 15:34 cp 08/22 15:36 Order name: Cath; Complete Time: 17:18 cp 08/22 19:00 Order name: Swallow Screen; Complete Time: 19:59 cp EC:30 Rate is 124 beats/min. Rhythm is regular. IL interval is normal. QRS interval is cp normal. QT interval is normal. T waves are Inverted in leads I, aVL. Interpreted by me. Reviewed by me. 18:47 Rate is 129 beats/min. Rhythm is irregular. IL interval is normal. QRS interval is cp normal. QT interval is normal. T waves are Inverted in leads II, aVF. Interpreted by me. Reviewed by me. Administered Medications: 17:49 Drug: NS 0.9% 1000 ml Route: IV; Rate: 1000 ml/hr; Site: left antecubital; ld1 17:49 Drug: Cefepime 2 grams Route: IVPB; Rate: 200 ml/hr; Infused Over: 30 mins; Site: left [facility] antecubital; 22:40 Follow up: IV Status: Completed infusion; IV Intake: 400ml ja3 22:41 Follow up: Response: No adverse reaction ja3 18:51 Drug: NS 0.9% 1000 ml Route: IV; Rate: 1 bolus; Site: left antecubital; ld1 22:39 Follow up: Response: No adverse reaction; IV Status: Completed infusion; IV Intake: ja3 1000ml 22:41 Follow up: IV Status: Completed infusion; IV Intake: 1000ml ja3 18:51 Drug: Tylenol 1000 mg Route: PO; ld1 22:38 Follow up: Temp 98.3; Response: No adverse reaction ja3 20:00 Drug: Magnesium Sulfate 1 grams Route: IVPB; Infused Over: 1 hrs; Site: left [facility] antecubital; 22:08 Follow up: IV Status: Completed infusion; IV converted to saline lock; IV Intake: 50ml ja3 22:38 Follow up: Response: No adverse reaction; IV Status: Completed infusion; IV Intake: [id number] 20:00 Drug: Potassium Effervescent Tablet 50 mEq Route: PO; ja3 22:38 Follow up: Response: No adverse reaction ja3 21:29 Drug: DiFLUcan (fluconazole) 200 mg Route: PO; ja3 22:38 Follow up: Response: No adverse reaction ja3 Disposition Summary: 08/22/21 20:31 Hospitalization Ordered Hospitalization Status: Inpatient Admission cp Provider: Richard Barrios cp Location: Telemetry/MedSurg (Inpatient) cp Condition: Stable cp Problem: new cp Symptoms: have improved cp Bed/Room Type: Standard cp Room Assignment: 207(08/22/21 21:00) eb1 Diagnosis - UTI/ Urinary tract infection, site not specified cp - Dysphagia cp Forms: - Medication Reconciliation Form cp - SBAR form cp Addendum: 08/27/2021 05:30 Co-signature as Attending Physician, Bell Mcgee MD PA/XER[employer] MACHINE MECHANIC's history reviewed, m a2 patient interviewed, and examined. I agree with assessment and care plan and confirm the diagnosis (es) above. Signatures: Dispatcher [employer] EDMS Kennedy Ball, TANNERY GUMMER-C TANNERY GUMMER-Cla1 Fausto Winter PA PA cp Bell Mcgee MD MD ma2 Eleanor Quiñones RN RN eb1 [place]ly [place] RN RN ld1 Shaila Harris RN RN ja3 Corrections: (The following items were deleted from the chart) 08/22 15:41 15:37 CORONAVIRUS+MR.LAB.BRZ ordered. EDMS EDMS 18:08 15:37 CORONAVIRUS ordered. EDMS EDMS 18:08 15:37 Influenza Screen (A \T\ B)+BA.LAB.BRZ ordered. EDMS EDMS 21:00 20:31 cp eb1 22:43 18:09 UA MICROSCOPIC+U.LAB.BRZ ordered. EDMS EDMS
--- NOTE | 2021-08-22 21:12 | P.HP ---
Certification for Inpatient Patient admitted to: Inpatient With expected LOS: >2 Midnights Patient will require the following post-hospital care: None Practitioner: I am a practitioner with admitting privileges, knowledge of patient current condition, hospital course, and medical plan of care. Services: Services provided to patient in accordance with Admission requirements found in Title 42 Section 412.3 of the Code of Federal Regulations Patient History Date of Service: 08/22/21 Primary Care Provider: Dr. Taylor Reason for admission: Dysphagia History of Present Illness: 70-year-old -[place] female with history of hypertension, osteoarthritis, medical debility after prolonged hospitalization from Covid and GI bleed and anemia of chronic disease presents emergency department for trouble swallowing. Daughter at bedside reports that the patient has had trouble swallowing solids for the past 2 weeks but has been getting worse. Patient has been tolerating liquids without difficulty. Patient initially without other complaints but noted to be febrile and tachycardic upon arrival to the emergency department. Patient was evaluated further in the emergency department and found to have urinary tract infection with microscopic analysis demonstrating greater than 50 bacteria and too numerous to count white blood cell, also many yeast noted on microscopic analysis. Other labs significant for white blood cell count 9.6 hemoglobin 9.8 hematocrit 29.4 potassium 3.3 creatinine 1.31 GFR 48 glucose 125 lactic acid 2.3 BNP 207 patient does not appear septic at this time Covid and influenza test negative CT soft tissue the neck negative for acute findings CT head without contrast negative for acute findings chest x-ray demonstrates mild basilar lung opacities are present greater on the left moderately improved since comparison CT chest demonstrates emphysematous change present throughout the lungs with fibrotic pattern no acute intrathoracic process noted. ED provider wishes to admit for dysphagia, UTI. Allergies No Known Allergies Allergy (Verified 04/13/15 10:06) Home Medications: Lidocaine Viscous 2% Soln [Xylocaine Viscous Oral 2%*] 3 tsp PO Q6HP PRN 04/13/15 Lisinopril [Zestril] 40 mg PO DAILY WITH BREAKFAST 04/13/15 Mag Hydrox/Al Hydrox/Simeth [Antacid Liquid] 2 tbsp PO Q6HP PRN 04/13/15 Phenobarb/Hyoscy/Atropine/Scop [ Elixir] 32.4 mg PO Q6HP PRN 04/13/15 Doxycycline Hyclate 100 mg PO BID 7 Days #14 tablet 10/15/21 Fluconazole [Diflucan] 200 mg PO DAILY 12 Days #12 tablet 07/27/21 dexAMETHasone [Decadron*] 4 mg PO BID 10 Days #20 tab 07/27/21 levoFLOXacin [Levaquin*] 750 mg PO DAILY 7 Days #7 tab 07/27/21 - Past Medical/Surgical History Diabetic: No -: HTN -: HLD -: Osteoarthritis. -: COVID -: GI bleed Past Surgical History: Unable to obtain - Family History Family History: Reviewed- Non-Contributory - Social History Smoking Status: Never smoker Alcohol use: No CD- Drugs: No Caffeine use: No Place of Residence: Home Review of Systems General: Weakness, Malaise Neurological: Other (Difficulty swallowing) Physical Examination - Physical Exam General: Alert, In no apparent distress, Oriented x3 HEENT: Atraumatic, PERRLA, Mucous membr. moist/pink, EOMI, Sclerae nonicteric Neck: Supple, 2+ carotid pulse no bruit, No LAD, Without JVD or thyroid abnormality Respiratory: Clear to auscultation bilaterally, Normal air movement Cardiovascular: Regular rate/rhythm, Normal S1 S2 Gastrointestinal: Normal bowel sounds, No tenderness Musculoskeletal: No tenderness Integumentary: No rashes Neurological: Normal speech, Normal tone, Normal affect, Other (Patient very weak, bedbound) Lymphatics: No axilla or inguinal lymphadenopathy - Studies Laboratory Data (last 24 hrs) 08/22/21 17:00: PT 15.2 H, INR 1.32 08/22/21 17:00: WBC 9.60, Hgb 9.8 L, Hct 29.4 L, Plt Count 185 08/22/21 17:00: Sodium 140, Potassium 3.3 L, BUN 28 H, Creatinine 1.31 H, Glucose 125 H, Magnesium 1.6 L, Total Bilirubin 0.6, AST 54 H, ALT 28, Alkaline Phosphatase 83 Assessment and Plan - Plan Assessment: Dysphagia Fever, urinary tract infection with candidiasis Acute kidney injury Tachyarrhythmia Normocytic anemia, anemia of chronic disease Hypertension Osteoarthritis Medical debility after prolonged hospitalization with Covid complicated with GI bleed Plan: Dysphagia: Unknown etiology, no other neurological deficits noted or reported. Will obtain MRI stroke protocol and consult neurology as well as speech therapy consult in place. Patient without any difficulty with liquids and has passed swallow screen at bedside this time. We will continue with full liquid diet at this time await further recommendations from speech therapy. Fever, urinary tract infection with candidiasis: Patient with recent hospitalization for similar, urine culture and blood cultures were negative at that time. Continue with cefepime, Diflucan at this time reobtain cultures, infectious disease consulted. Acute kidney injury: Patient with acute kidney injury continue with IV fluids overnight recheck with morning labs. Obtain renal ultrasound if necessary. Tachyarrhythmia: Patient with paroxysmal tachyarrhythmia, appears to be sinus tachycardia with PACs we will monitor on telemetry, possible atrial fibrillation. If patient is in atrial fibrillation will consult cardiology, patient with history of GI bleed after taking anticoagulation therapy during Covid. Normocytic anemia, anemia of chronic disease: Transfuse to maintain hemoglobin greater than 7. Hypertension: Blood pressure soft at this time we will hold off on antihypertensive agents. Osteoarthritis: Obtain home medications, will hold off on any NSAIDs given acute kidney injury. Medical debility after prolonged hospitalization with Covid complicated with GI bleed: Physical therapy consulted, patient family reports that she is currently residing at home with her daughter, currently bedbound but able to sit up on the edge of the bed, making improvement with physical therapy, family wishes for more/more aggressive physical therapy if possible. Patient may be appropriate for rehab setting. DVT PPX: Heparin Code status: Full Discharge Plan: Home Plan to discharge in: Greater than 2 days - Advance Directives Does patient have a Living Will: No Does patient have a Durable POA for Healthcare: No - Code Status/Comfort Care Code Status Assessed: Yes (Full code) Critical Care: No Time Spent Managing Pts Care (In Minutes): 55
[2021-08-22] MEDS ORDERED: FLUCONAZOLE 100 MG TAB ONE (21:27)
[2021-08-22] MEDS ORDERED: CEFEPIME 1 GM/VIAL IV SCH (21:50)
[2021-08-22] MEDS ORDERED: ONDANSETRON 4 MG/2 ML VIAL IV PRN (21:50)
[2021-08-22] MEDS: HEPARIN 5000 UNIT/ML 1 ML VIAL SQ SCH (23:29)
[2021-08-22] MEDS: NA CHLORIDE 0.9% 1,000 ML IV SCH (23:42)
[2021-08-23 06:45] LABS: Absolute Lymphocytes (CBC) 1.8 K/uL (0.7-4.9); Basophils % 0.5 % (0-1.3); Hematocrit 27.5 % (36.0-45.0); Lymphocytes % 23.9 % (15.3-44.8); MPV 8.3 fL (7.6-11.3); RBC Red Blood Cell Count 2.85 M/uL (3.86-4.86)
[2021-08-23 07:08] LABS: Albumin 1.6 g/dL (3.4-5.0); Bilirubin Total 0.5 mg/dL (0.2-1.0); Magnesium 1.8 mg/dL (1.8-2.4); Potassium 3.1 mmol/L (3.5-5.1); Protein, Total 5.5 g/dL (6.4-8.2); Thyroid Stimulating Hormone 0.871 uIU/mL (0.360-3.740)
[2021-08-23] MEDS ORDERED: INFLUENZA VACCINE (for 6+ mo) 0.5 ML DOSE IMVAC ONE (08:00)
--- NOTE | 2021-08-23 09:30 | RAD REPORT ---
EXAM DESCRIPTION: US - CP - 08/23/2021 1:09 am CLINICAL HISTORY: dysphagia COMPARISON: Soft Tissue Neck W/Contr dated 08/22/2021 TECHNIQUE: Real-time sonographic evaluation of bilateral carotid and vertebral systems was performed . Mcallister scale and Doppler interrogation were performed with waveform tracing bilaterally. FINDINGS: Normal high resistance waveforms are noted in both external carotid arteries. The common c arotid arteries and internal carotid arteries show normal low resistance waveforms. Calcified and noncalcified plaquing changes are present in each carotid bulb. Visually this does not significantly narrow the vessel lumen. Peak systolic and end diastolic velocity values and the ICA/CC A ratios are in the non-hemodynamically significant range. Antegrade flow seen in both vertebral arteries. Velocity values and ratios were recorded and are retained in the patient's imaging records. IMPRESSION: Bilateral carotid bulb mild plaquing changes without significant luminal narrowing on vi sual inspection. Velocity values and ICA/ CCA ratios indicate no significant degree of stenosis.
[2021-08-23] MEDS: KCL 20 MEQ/100 mL IVPB 20 MEQ/100 ML BAG IV SCH ×2 (09:50→13:46)
[2021-08-23] MEDS: HEPARIN 5000 UNIT/ML 1 ML VIAL SQ SCH ×2 (09:51→20:38)
[2021-08-23] MEDS: FLUCONAZOLE 100 MG TAB PO SCH (09:51)
--- NOTE | 2021-08-23 12:03 | P.PN ---
Date of Service: 08/23/21 Subjective: No new complaints today. Patient continues with feeling as though she cannot swallow solid foods, was able to swallow liquids 1 of patient's daughters at bedside, also reports patient reported some pain of her buttocks, and was occasionally been having some loose stool Patient denies any abdominal pain/discomfort, no nausea She reports having some pain in lower left buttocks when she has a bowel movement. Denies pain at rectum ROS: 10 point ROS as noted above, otherwise negative Physical exam GEN: Alert, orientedx2, NAD HEENT: Normal conjunctiva, sclera anicteric CV: Regular rate and rhythm, no edema Pulm: Nonlabored respiration on room air ABD: Soft, nontender, nondistended MSK: No joint tenderness Integumentary: small superficial skin breakdown on buttocks, superficial decubitus ulcer on sacrum Neuro: Normal speech, normal affect, moves all extremities, significant weakness in lower extremities Problem List Dysphagia of solid food Fever, urinary tract infection with candidiasis Acute kidney injury, prerenal, resolved Tachyarrhythmia Normocytic anemia, anemia of chronic disease Hypertension Osteoarthritis debility after prolonged hospitalization with Covid complicated with GI bleed Dysphagia: Unknown etiology, no other neurological deficits noted or reported. Possible mental/psychiatric component versus CVA versus physical issue (stenosis) Speech therapy consulted, will obtain modified barium Continue with full liquid diet pending further recommendations from speech Fever, urinary tract infection with candidiasis: Patient with recent hospitalization for similar, urine culture and blood cultures were negative at that time. Continue with cefepime, Diflucan at this time reobtain cultures, infectious disease consulted. Possible colonization of yeast Acute kidney injury: Resolved with IV fluids, suspect prerenal Tachyarrhythmia: Patient with paroxysmal tachyarrhythmia, appears to be sinus tachycardia with PACs we will monitor on telemetry, possible atrial fibrillation. If patient is in atrial fibrillation will consult cardiology, patient with history of GI bleed after taking anticoagulation therapy during Covid. Normocytic anemia, anemia of chronic disease: Transfuse to maintain hemoglobin greater than 7. Stable Hypertension: Blood pressure soft at this time we will hold off on antihypertensive agents. Osteoarthritis: Obtain home medications, will hold off on any NSAIDs given acute kidney injury. Medical debility after prolonged hospitalization with Covid complicated with GI bleed: Physical therapy consulted, patient family reports that she is currently residing at home with her daughter, currently bedbound but able to sit up on the edge of the bed, making improvement with physical therapy, family wishes for more/more aggressive physical therapy if possible. Patient may be appropriate for rehab setting. VTE: Heparin Code status: Full Dispo: Possible SNF, will discuss further with family, 1 daughter seems receptive to it, patient not as receptive. She has refused in the past Time Spent Managing Pts Care (In Minutes): 35
--- NOTE | 2021-08-23 12:30 | RAD REPORT ---
EXAM DESCRIPTION: MRI - MRA Head Wo Cont - 08/23/2021 12:14 pm CLINICAL HISTORY: dysphagia CVA COMPARISON: No comparisons FINDINGS: 3D noncontrast [id number] MR angiography of the [place] was performed. No aneurysm, flow-limiting stenosis or vascular malformation is seen. Forward flow seen in codominant vertebral arteries. type bilateral program director substance abuse. The visualized dural venous sinuses appear patent. IMPRESSION: No significant flow abnormality of the [place] is identified.
--- NOTE | 2021-08-23 12:33 | RAD REPORT ---
EXAM DESCRIPTION: MRI - MRA Neck W/Wo Cont - 08/23/2021 12:14 pm CLINICAL HISTORY: DYSPHAGIA COMPARISON: No comparisons FINDINGS: Contrast enhance 2D [id number] MR angiography of the neck vessels was performed. No flow limiting stenosis identified. The bilateral carotid systems and vertebral arteries are widely patent. The vertebral arteries are codominant. IMPRESSION: No flow limiting arterial stenosis within the neck.
--- NOTE | 2021-08-23 12:36 | RAD REPORT ---
EXAM DESCRIPTION: MRI - Brain W/Wo Cont - 08/23/2021 12:14 pm CLINICAL HISTORY: DYSPHAGIA COMPARISON: MRA Head Wo Cont dated 08/23/2021 TECHNIQUE: Sagittal T1-weighted images were obtained along with PD/heavily T2-weighted and T2-FLAIR images. Axial DWI and ADC mapping sequences were also obtained along with coronal heavily T2-weighted images were obtained. Contrast was administered. FINDINGS: No intracranial hemorrhage, mass or acute infarction. There is no edema or shift of midlin e structures. No extra-axial fluid collections. Signal voids are seen as a normal finding in the sreekanth r intracranial vessels. No significant white matter disease. Mild chronic small vessel ischemic spann es. Cerebral atrophy is present. No abnormal enhancement. Cavum septum pellucidum. Mastoid air cells and paranasal sinuses are clear. IMPRESSION: No acute intracranial abnormality. No evidence of acute infarct. No abnormal enhancement .
[2021-08-23] MEDS ORDERED: MAGNESIUM SULFATE 1 gm IVPB 1 GM/100 ML BAG IV ONE (13:00)
--- NOTE | 2021-08-23 14:06 | RAD REPORT ---
EXAM DESCRIPTION: RAD - Barium Swallow Modified - 08/23/2021 1:51 pm CLINICAL HISTORY: difficulty swallowing solids COMPARISON: None. TECHNIQUE: The patient was given liquid, semi-solid and solid forms of barium. Lateral view fluorosc opic imaging was performed in conjunction with speech pathology service. FINDINGS: Cineloop acquisitions: 21 Fluoro time: 4:01 min Pharyngeal residue: vallecular - thin by spoon, thin by straw Pyriform - thin by straw ,minimal epiglottic deflection, poor bolus acceptance, poor bolus management , tongue pumping, puree and barium tablet had to be spit out - pt could not move posteriorly in oral cavity. IMPRESSION: Modified barium swallow as summarized above and fully detailed on speech pathology repor mayelin
--- NOTE | 2021-08-23 15:08 | ECHO ---
HEIGHT: 5 ft 7 in WEIGHT: 200 lb 0 oz DATE OF STUDY: 08/23/[address]: Kennedy Ball NP 2-DIMENSIONAL: YES M.MODE: YES DOPPLER: YES COLOR FLOW: YES TDS: NO PORTABLE: NO DEFINITY: NO BUBBLE STUDY: NO DIAGNOSIS: DYSPHAGIA/ POSSIBLE CEREBRAL VASCULAR ACCIDENT CARDIAC HISTORY: CATHERIZATION: NO SURGERY: NO PROSTHETIC VALVE: NO PACEMAKER: NO MEASUREMENTS (cm) DIASTOLIC (NORMALS) SYSTOLIC (NORMALS) IVSd 1.0 (0.6-1.2) LA Diam 2.5 (1.9-4.0) LVEF 61% LVIDd 3.8 (3.5-5.7) LVIDs 2.6 (2.0-3.5) %FS 32% LVPWd 1.1 (0.6-1.2) Ao Diam 2.7 (2.0-3.7) 2 DIMENSIONAL ASSESSMENT: RIGHT ATRIUM: NORMAL LEFT ATRIUM: NORMAL RIGHT VENTRICLE: NORMAL LEFT VENTRICLE: NORMAL TRICUSPID VALVE: MILD TRIUCUSPID REGURGITATION MITRAL VALVE: NORMAL PULMONIC VALVE: NORMAL AORTIC VALVE: MILD AORTIC REGURGITATION PERICARDIAL EFFUSION: NONE AORTIC ROOT: NORMAL LEFT VENTRICULAR WALL MOTION: NORMAL. DOPPLER/COLOR FLOW: SEE BELOW. COMMENTS: NORMAL LEFT VENTRICULAR EJECTION FRACTION 55-60%. ATRIAL FIBRILLATION. MILD AORTIC REGURGITATION. MILD TRICUSPID REGURGITATION. TECHNOLOGIST: SANDRA AMADOR
[2021-08-23] MEDS: NA CHLORIDE 0.9% 1,000 ML IV SCH (16:25)
[2021-08-23] MEDS: CEFEPIME 1 GM/100 ML BAG IV SCH (17:18)
--- NOTE | 2021-08-23 21:50 | CON ---
Reason For Consultation: Consultation called because of progressive dysphagia. History Of Present Illness: Ms. Chowdary is a 70-year-old right-handed patient with h ypertension, osteomyelitis, who had COVID and was hospitalized in March or April of this year with COVI D and GI bleed with significant anemia and since then has had progressive weakness of the legs, arms, and then wheelchair bound in addition to about the last 3 weeks of progressive dysphagia. Prior to being infected with COVID virus, she had no such symptoms and her workup thus far includes a negative brain MRI with MRA of head and neck for any acute ischemic or hemorrhagic change, no aneurysms and n o abnormalities in head, neck, and brain vessels. Echocardiogram showed an ejection fraction of 63% with mild aortic and tricuspid regurgitation, otherwise unremarkable. Her modified barium swallow st udy showed she had difficulty with the oral lingual phase managing her bolus and otherwise was be abl e to swallow liquids once it moved towards the back. She had to spit out the barium tablet due to in ability to swallow it. Her carotid artery ultrasound showed no hemodynamically significant stenosis. Laboratory Studies: Included a complete blood count with differential showing an anemia, which is ch ronic. Her kidney function showed dehydration on admission creatinine 1.31, after hydration 0.97. S odium normal. Potassium was low at 3.1, calcium low at 7.5, magnesium initially low at 1.3. Procalc itonin was initially elevated to 0.69 with lactic acid elevated at 2.3. Her COVID-19 test is now neg ative and she does have a pending studies for myasthenia gravis. Urinalysis showed trace esterase, g reater than 50 bacteria, too numerous to count white blood cells, trace ketones, 2+ blood. Past Medical History: As indicated in addition to dyslipidemia. Allergies: NO KNOWN DRUG ALLERGIES. Medications At Home: Viscous lidocaine 2% two teaspoons every 6 hours as needed, lisinopril 40 mg da taj, liquid antacid 2 teaspoons every 6 hours, doxycycline 100 mg twice daily, Diflucan 200 mg daily, Decadron 4 mg twice daily, and Levaquin 750 mg daily. Family History: Noncontributory. Past Surgical History: No recent surgeries. Social History: No alcohol, tobacco, or IV drug use. Review of Systems: As indicated, she has had progressive weakness of the lower and upper extremities, unable to stand an d ambulate since around March and being in the hospital for prolonged period. She has progressive dys phagia otherwise. No recent fevers or chills, myalgias, or arthralgias. No rash, weight change. No headache and no other positives other than mentioned above on her review of systems. Physical Examination: Vital Signs: Blood pressure 122/77, pulse 100, respiratory rate 16, temperature 97.3, and oxygen sat uration 95% on room air. Weight 200 pounds, height 5 feet 7 inches, and BMI 31.37. Neurologic: She is resting in bed. She is in no significant distress. She is normocephalic. She d oes have very slow speech and some difficulty with labial lingual and guttural sounds. Otherwise, de ntures are out and may be contributing to some of the poor articulation. Cranial nerves show no foca l deficits on 2 through 12. She does not have significant facial weakness or asymmetry, although wit h the dentures out, it is difficult to fully assess for symmetry of her face. Motor examination, she has more distal and proximal weakness around 4/5 distally and hand statistics professor and finger flexion-extension and around 5- out of 5 proximally in the upper extremities and lower extremities bilaterally, around 3/5 proximally and distally in the lower extremities. Sensory exam, she has a stocking-glove loss t o light touch, temperature in the legs and arms. Reflexes are absent in the upper and lower extremit ies. Coordination in the upper extremities slow. Unable to lift the leg off the bed to do a good co ordination test in the lower extremities. Assessment: Ms. 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 At this point, she is not likely to protect her airway properly and to be able to maintain good oral intake and would benefit from placement of a percutaneous endoscopic gastrostomy tube. Plan: 1.The patient is best served by PEG tube placement. 2.At some point, may require EMG nerve conduction study and lumbar puncture to rule out active demye lination and may benefit at that point from IVIG treatment if indicated, otherwise continue with mode rate physical therapy perhaps in the detention setting. 3.Aggressive management of her comorbid conditions. LB/MODL Voice ID: [id number] Report ID: [id number]
[2021-08-24] MEDS: NA CHLORIDE 0.9% 1,000 ML IV SCH ×2 (00:53→10:17)
--- NOTE | 2021-08-24 05:58 | P.PN ---
Date of Service: 08/24/21 Subjective: No acute events overnight Abnormal swallow study Imaging with no acute findings Patient feels a little bit better, still having difficulty swallowing solids No new complaints ROS: 10 point ROS as noted above, otherwise negative Physical exam GEN: Alert, orientedx2, NAD HEENT: Normal conjunctiva, sclera anicteric CV: Regular rate and rhythm, no edema Pulm: Nonlabored respiration on room air ABD: Soft, nontender, nondistended MSK: No joint tenderness Integumentary: small superficial skin breakdown on buttocks, superficial decubitus ulcer on sacrum Neuro: Normal speech, normal affect, moves all extremities, significant weakness in lower extremities Problem List Dysphagia of solid food Fever, urinary tract infection with candidiasis Acute kidney injury, prerenal, resolved Tachyarrhythmia Normocytic anemia, anemia of chronic disease Hypertension Osteoarthritis debility after prolonged hospitalization with Covid complicated with GI bleed Dysphagia: Unknown etiology, no other neurological deficits noted or reported. Neurology consulted, concern for the demyelinating neuropathy, likely secondary to Covid 19 Anticipates this will be ongoing for several months, patient will need further w ork-up as an outpatient. In the meantime, patient will not be able to obtain adequate nutrition with a liquid diet Recommend PEG tube Discussed with daughter, she states she will further discuss with family and get back to us later today Fever, urinary tract infection with candidiasis: Patient with recent hospitalization for similar, urine culture and blood cultures were negative at that time. Continue with cefepime, Diflucan at this time reobtain cultures, infectious disease consulted. Possible colonization of yeast Acute kidney injury: Resolved with IV fluids, suspect prerenal Tachyarrhythmia: Patient with paroxysmal tachyarrhythmia, appears to be sinus tachycardia with PACs we will monitor on telemetry, possible atrial fibrillation. If patient is in atrial fibrillation will consult cardiology, patient with history of GI bleed after taking anticoagulation therapy during Covid. Normocytic anemia, anemia of chronic disease: Transfuse to maintain hemoglobin greater than 7. Stable Hypertension: Blood pressure soft at this time we will hold off on anti hypertensive agents. Osteoarthritis: Obtain home medications, will hold off on any NSAIDs given acute kidney injury. Medical debility after prolonged hospitalization with Covid complicated with GI bleed: Physical therapy consulted, patient family reports that she is currently residing at home with her daughter, currently bedbound but able to sit up on the edge of the bed, making improvement with physical therapy, family wishes for more/more aggressive physical therapy if possible. Patient may be appropriate for rehab setting. VTE: Heparin Code status: Full Dispo: Possible SNF, will discuss further with family, 1 daughter seems receptive to it, patient not as receptive. She has refused in the past Time Spent Managing Pts Care (In Minutes): 35
[2021-08-24 07:34] LABS: Absolute Lymphocytes (CBC) 1.7 K/uL (0.7-4.9); Basophils % 0.6 % (0-1.3); Hematocrit 25.9 % (36.0-45.0); RBC Red Blood Cell Count 2.68 M/uL (3.86-4.86)
[2021-08-24 07:51] LABS: ALT/SGPT 22 U/L (12-78); AST/SGOT 27 U/L (15-37); Albumin 1.5 g/dL (3.4-5.0); Alkaline Phosphatase 71 U/L (45-117); BUN Blood Urea Nitrogen 17 mg/dL (7-18); Bicarbonate 21 mmol/L (21-32); Bilirubin Total 0.3 mg/dL (0.2-1.0); Glucose Level 75 mg/dL (74-106); Magnesium 1.8 mg/dL (1.8-2.4); Protein, Total 5.2 g/dL (6.4-8.2); Sodium Level 144 mmol/L (136-145)
[2021-08-24] MEDS ORDERED: MAGNESIUM SULFATE 1 gm IVPB 1 GM/100 ML BAG IV ONE (09:00)
[2021-08-24] MEDS: POTASSIUM 25 MEQ EFFERV TAB PO ONE ×2 (09:00→10:18)
--- NOTE | 2021-08-24 10:11 | P.CNS ---
Date of Consult: 08/24/21 Primary Care Provider: Dr. Taylor Chief Complaint: Dysphagia History of Present Illness: The patient is a 70-year-old female with a past medical history of hypertension, osteoarthritis, and anemia who presented to the emergency department secondary to dysphagia. Per daughter the patient has had trouble swallowing solids for the past 2 weeks and has progressively been getting worse. On admission patient was noted to be febrile with a T-max of 101.2. Since admission patient has been afebrile. Of note patient has history of recurrent urinary tract infections both bacterial and fungal. Patient has been treated with a 14 day course of fluconazole for past candidiasis UTI. Urine culture on this admission still pending, urine analysis showed many WBC as well as yeast, patient is likely colonized with yeast at this point. No clinical indication for antifungals. Patient empirically placed on cefepime, will tailor down once urine culture reports are obtained. Patient currently denies nausea/vomiting/diarrhea/shortness breath/chest pain. Patient reports dysuria, denies urinary frequency/urgency/hesitancy. When asked if she noted any color or odor to her urine she states she doesnt look at her urine. She denies lower back, flank, or abdominal pain. Allergies No Known Allergies Allergy (Verified 04/13/15 10:06) Home Medications: Lisinopril [Zestril] 40 mg PO DAILY WITH BREAKFAST 04/13/15 - Past Medical/Surgical History Diabetic: No -: HTN -: HLD -: Osteoarthritis. -: COVID -: GI bleed - Social History Alcohol use: No CD- Drugs: No Caffeine use: No Place of Residence: Home Review of Systems 10-point ROS is otherwise unremarkable Physical Examination Temp Pulse Resp BP Pulse Ox 99.3 F 109 H 18 119/68 98 08/24/21 08:00 08/24/21 08:00 08/24/21 08:00 08/24/21 08:00 08/24/21 08:00 General: In no apparent distress HEENT: Atraumatic Neck: 2+ carotid pulse no bruit, JVD not distended Respiratory: Clear to auscultation bilaterally, Normal air movement Cardiovascular: Regular rate/rhythm, Normal S1 S2 Gastrointestinal: Soft and benign Musculoskeletal: No clubbing, No swelling, No contractures Integumentary: No rashes, No breakdown, No significant lesion Conclusions/Impression: Antibiotics: Cefepime Start: 08/23 Assessment/plan Urinary tract infection Urine analysis showed bacteria >50 and many WBC. Also showed yeast, patient has history of the fungal UTIs in the past, was treated with a 14 day course of fluconazole on last admission. Patient is likely colonized at this point, no clinical indication for antifungals. Patient empirically started on cefepime, awaiting urine culture report will tailor antibiotics once obtained. dysphasia/anemia/debility/weakness -medical management per primary team -continue to monitor CBC and BMP -continue to monitor for signs of infection -plan of care discussed with Dr. Charles Thank you for consultation
[2021-08-24] MEDS: FLUCONAZOLE 100 MG TAB PO SCH (10:18)
[2021-08-24] MEDS ORDERED: POTASSIUM CL SA 10 MEQ TAB PO ONE ×2 (10:29→20:55)
[2021-08-24] MEDS: HEPARIN 5000 UNIT/ML 1 ML VIAL SQ SCH ×2 (10:39→20:58)
[2021-08-24] MEDS: CEFEPIME 1 GM/100 ML BAG IV SCH (17:46)
--- NOTE | 2021-08-24 20:42 | EKG ---
Test Date: 2021-08-22 Test Time: 18:43:25 Otolaryngologist: NITZA MEASUREMENT RESULTS: Intervals: Rate: 129 WA: 196 QRSD: 80 QT: 304 QTc: 445 [place]: P: 31 WA: 196 QRS: 11 T: 193 INTERPRETIVE STATEMENTS: Sinus tachycardia with occasional premature ventricular complexes ST & T wave abnormality, consider inferolateral ischemia Abnormal ECG Compared to ECG 07/24/2021 12:11:09 Ventricular premature complex(es) now present ST (T wave) deviation now present Possible ischemia now present Left ventricular hypertrophy no longer present Early repolarization no longer present Electronically Signed On 08-24-21 20:35:39 [facility] by Ryan Lua
--- NOTE | 2021-08-24 20:43 | EKG ---
Test Date: 2021-08-22 Test Time: 15:24:06 Pigs Feet Finisher: NITZA MEASUREMENT RESULTS: Intervals: Rate: 124 NE: 178 QRSD: 80 QT: 318 QTc: 456 [place]: P: 51 NE: 178 QRS: 6 T: 193 INTERPRETIVE STATEMENTS: Sinus tachycardia with premature atrial complexes with aberrant conduction Left ventricular hypertrophy with repolarization abnormality Abnormal ECG Compared to ECG 07/24/2021 12:11:09 Atrial premature complex(es) now present Aberrant conduction of supraventricular beat(s) now present Electronically Signed On 08-24-21 20:35:43 [facility] by Ryan Lua
[2021-08-24] MEDS: ENSURE ENLIVE 237 ML CAN PO SCH (21:03)
[2021-08-24] MEDS: JUVEN PACKET PO SCH (21:08)
[2021-08-24] MEDS: METOPROLOL TAR 25 MG TAB PO SCH (22:51)
[2021-08-25] MEDS: METOPROLOL TAR 25 MG TAB PO SCH ×2 (05:16→16:58)
--- NOTE | 2021-08-25 05:55 | P.PN ---
Date of Service: 08/25/21 Subjective: No acute events overnight Patient overall, more energy Emesis after protein shake last night, became tachycardic, started on metoprolol, for possible A. fib Patient is still thinking about PEG tube or not, wants to discuss further with daughters, did not speak with him yesterday. ROS: 10 point ROS as noted above, otherwise negative Physical exam GEN: Alert, orientedx3, NAD HEENT: Normal conjunctiva, sclera anicteric CV: Regular rate and rhythm, no edema Pulm: Nonlabored respiration on room air ABD: Soft, nontender, nondistended MSK: No joint tenderness Integumentary: small superficial skin breakdown on buttocks, superficial decubitus ulcer on sacrum Neuro: Normal speech, normal affect, moves all extremities, significant weakness in lower extremities Problem List Dysphagia of solid food Fever, urinary tract infection with candidiasis Acute kidney injury, prerenal, resolved Tachyarrhythmia Normocytic anemia, anemia of chronic disease Hypertension Osteoarthritis debility after prolonged hospitalization with Covid complicated with GI bleed Dysphagia: Neurology consulted, 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 In the meantime, patient will not be able to obtain adequate nutrition with a liquid diet Recommend PEG tube Discussed with daughter, she states she will further discuss with family and get back to us Patient also stated she needs to discuss with her family think about it Fever, urinary tract infection with candidiasis: Patient with recent hospitalization for similar, urine culture and blood cultures were negative at that time. Continue with cefepime, infectious disease consulted. Possible colonization of yeast Acute kidney injury: Resolved with IV fluids, suspect prerenal Tachyarrhythmia: Patient with paroxysmal tachyarrhythmia, appears to be sinus tachycardia with PACs we will monitor on telemetry, possible atrial fibrillation. Started metoprolol last night Normocytic anemia, anemia of chronic disease: Transfuse to maintain hemoglobin greater than 7. Stable Hypertension: Blood pressure soft at this time we will hold off on antihypertensive agents. Osteoarthritis: Obtain home medications, will hold off on any NSAIDs given acute kidney injury. Medical debility after prolonged hospitalization with Covid complicated with GI bleed: Physical therapy consulted, patient family reports that she is currently residing at home with her daughter, currently bedbound but able to sit up on the edge of the bed, making improvement with physical therapy, family wishes for more/more aggressive physical therapy if possible. Patient may be appropriate for rehab setting. VTE: Heparin Code status: Full Dispo: Possible SNF, will discuss further with family, 1 daughter seems receptive to it, patient not as receptive. She has refused in the past waiting for family to discuss PEG placement Time Spent Managing Pts Care (In Minutes): 35
[2021-08-25 06:06] LABS: Absolute Lymphocytes (CBC) 1.7 K/uL (0.7-4.9); Basophils % 0.5 % (0-1.3); Hematocrit 26.6 % (36.0-45.0); Lymphocytes % 23.7 % (15.3-44.8); MPV 8.1 fL (7.6-11.3); RBC Red Blood Cell Count 2.74 M/uL (3.86-4.86)
[2021-08-25 06:20] LABS: ALT/SGPT 28 U/L (12-78); AST/SGOT 32 U/L (15-37); Albumin 1.5 g/dL (3.4-5.0); Alkaline Phosphatase 79 U/L (45-117); BUN Blood Urea Nitrogen 11 mg/dL (7-18); Bicarbonate 22 mmol/L (21-32); Bilirubin Total 0.2 mg/dL (0.2-1.0); Glucose Level 91 mg/dL (74-106); Magnesium 1.8 mg/dL (1.8-2.4); Potassium 3.6 mmol/L (3.5-5.1); Protein, Total 5.2 g/dL (6.4-8.2); Sodium Level 144 mmol/L (136-145)
[2021-08-25 07:13] LABS: Anisocytosis 2+; Blood Morphology Comment NOTED (NOT SEEN); Hypochromasia 1+; Platelet Estimate ADEQ; Polychromasia SLIGHT; Target Cells FEW
[2021-08-25] MEDS ORDERED: MAGNESIUM SULFATE 1 gm IVPB 1 GM/100 ML BAG IV ONE (09:00)
[2021-08-25] MEDS ORDERED: POTASSIUM CL SA 10 MEQ TAB PO ONE (09:00)
[2021-08-25] MEDS: HEPARIN 5000 UNIT/ML 1 ML VIAL SQ SCH ×2 (09:40→20:07)
[2021-08-25] MEDS: ENSURE ENLIVE 237 ML CAN PO SCH ×2 (09:41→20:07)
[2021-08-25] MEDS: JUVEN PACKET PO SCH ×2 (09:50→20:07)
[2021-08-25] MEDS: CEFEPIME 1 GM/100 ML BAG IV SCH (16:58)
--- OUTSIDE RECORDS SUMMARY | 2021-08-25 19:46 | XMS REPORT | Continuity of Care Document ---
:1950 Author Organization [facility] t Address [address] [place] [address] Care Team Providers Name Role Phone VICKI SPEARS Attending Clinician Unavailable VICKI SPEARS Admitting Clinician Unavailable Payers Payer Name Policy Type Policy Number Effective Date Expiration Date [id number] 00:00:00 Problems This patient has no known problems. Allergies, Adverse Reactions, Alerts Allergy Allergy Status Severity Reaction(s) Onset Inactive Treating Comm ents Source Name Type Date Date Clinician NO KNOWN Allergy Active [facility] Medications This patient has no known medications. Vital Signs Vital Name Observation Time Observation Value Comments Source WEIGHT 2021-06-29 10:00:00 89.359 kg HEIGHT 2021-06-28 22:00:00 167.6 cm WEIGHT 2021-06-28 22:00:00 90.311 kg WEIGHT 2021-06-29 10:00:00 89.359 kg HEIGHT 2021-06-28 22:00:00 167.6 cm WEIGHT 2021-06-28 22:00:00 90.311 kg Procedures This patient has no known procedures. Encounters Start End Encounter Admission Attending Care Care Encounter Source Date/Time Date/Time Type Type Clinicians Facility Department ID 2021-07-22 Inpatient UR MARISOL SPEARS [facility] Gastro [id number] [facility] 12:46:41 Results Test Description Test Time Test Comments Results Result Comments Source POCT-GLUCOSE METER 2021-07-11 16:08:47 Test Item Value Reference Range Interpretation Comme nts POC-GLUCOSE METER (BEAKER) 228 mg/dL 70-110 H : TESTED AT [facility] [address] code = [address], [place] [place] [address]: 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/Techni unique ID = [id number] for Ishmael, Ayin or POCT-GLUCOSE [id number] 11:49:12 Test Item Value Reference Range Interpretation Comments POC-GLUCOSE METER 122 mg/dL 70-110 H : TESTED A T [facility] [address] (BEAKER) (test code [address], = 1538) [facility] [place] [address]: 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/Techni unique ID = [id number] for Agata blum [place] COMPREHENSIVE METABOLIC [id number] 06:20:58 Test Item Value Reference Range Interpretation Comments TOTAL PROTEIN 4.8 gm/dL 6.0-8.5 L (BEAKER) (test code = 770) ALBUMIN (BEAKER) 2.6 g/dL 3.5-5.0 L (test code = 1145) ALKALINE PHOSPHATASE 49 U/L 30-115 (BEAKER) (test code = 346) BILIRUBIN TOTAL 0.5 mg/dL 0.1-1.2 (BEAKER) (test code = 377) SODIUM (BEAKER) (test 142 meq/L 135-148 code = 381) POTASSIUM (BEAKER) 3.3 meq/L 3.6-5.5 L (test code = 379) CHLORIDE (BEAKER) 110 meq/L 98-106 H (test code = 382) CO2 (BEAKER) (test 22 meq/L 20-29 code = 355) BLOOD UREA NITROGEN 13 mg/dL 10-26 (BEAKER) (test code = 354) CREATININE (BEAKER) 0.64 mg/dL 0.50-1.20 (test code = 358) GLUCOSE RANDOM 135 mg/dL 70-110 H (BEAKER) (test code = 652) CALCIUM (BEAKER) 8.2 mg/dL 8.5-10.5 L (test code = 697) AST (SGOT) (BEAKER) 14 U/L 5-40 (test code = 353) ALT (SGPT) (BEAKER) 32 U/L 5-50 (test code = 347) EGFR (BEAKER) (test 111 ESTIMATE D GFR IS code = 1092) mL/min/1.73 sq NOT ACCURA TE m CREATININE CLEARANCE IN PREDICTING GLOMERULAR FILTRATION RATE . ESTIMATED GFR I S NOT APPLICABLE FOR DIALYSIS PATIEN TS. 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 ID - LITOOperator ID - LITOOperator ID - LITOOperator ID - LITOOperator ID - LITOOperator ID - LITOOperator ID - LITOOperator ID - LITOOperator ID - LITOOperator ID - LITOOperator ID - LITOOperator ID - LITOOperator ID - LITOOperator ID - LITOOperator ID - LITOOperator ID - LITOPOCT-GLUCOSE METER 2021-07-11 06:20:31 Test Item Value Reference Range Interpretation Comments POC-GLUCOSE METER 137 mg/dL 70-110 H : TESTED A T [facility] [address] (BEAKER) (test code [address], = 1538) [facility] [address]: 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/Techni unique ID = [id number] for Elizabeth Joshua [id number] 06:19:13 Test Item Value Reference Range Interpretation Comments MAGNESIUM (BEAKER) (test code = 1.7 mg/dL 1.5-3.0 627) 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 ID - LITOOperator ID - LITOOperator ID - LITOOperator ID - LITOCBC W/PLT COUNT & AUTO [id number] 05:50:18 Test Item Value Reference Range Interpretation Comments WHITE BLOOD CELL COUNT (BEAKER) 6.1 K/ L 4.0-10.0 (test code = 775) RED BLOOD CELL COUNT (BEAKER) 2.98 M/ L 4.00-5.00 L (test code = 761) HEMOGLOBIN (BEAKER) (test code = 9.1 GM/DL 12.0-15.5 L 410) HEMATOCRIT (BEAKER) (test code = 28.6 % 36.0-46.0 L 411) MEAN CORPUSCULAR VOLUME (BEAKER) 96.0 fL 82.0-99.0 (test code = 753) MEAN CORPUSCULAR HEMOGLOBIN 30.5 pg 27.0-33.0 (BEAKER) (test code = 751) MEAN CORPUSCULAR HEMOGLOBIN CONC 31.8 GM/DL 32.0-36.0 L (BEAKER) (test code = 752) RED CELL DISTRIBUTION WIDTH 20.5 % 12.0-15.0 H (BEAKER) (test code = 412) PLATELET COUNT (BEAKER) (test code 90 K/CU MM 150-430 L = 756) MEAN PLATELET VOLUME (BEAKER) 10.8 fL 6.0-11.5 (test code = 754) NUCLEATED RED BLOOD CELLS (BEAKER) 1 /100 WBC 0-0 H (test code = 413) NEUTROPHILS RELATIVE PERCENT 63 % (BEAKER) (test code = 429) LYMPHOCYTES RELATIVE PERCENT 28 % (BEAKER) (test code = 430) MONOCYTES RELATIVE PERCENT 6 % (BEAKER) (test code = 431) EOSINOPHILS RELATIVE PERCENT 0 % (BEAKER) (test code = 432) BASOPHILS RELATIVE PERCENT 0 % (BEAKER) (test code = 437) NEUTROPHILS ABSOLUTE COUNT 3.83 K/ L 1.80-8.00 (BEAKER) (test code = 670) LYMPHOCYTES ABSOLUTE COUNT 1.73 K/ L 1.48-4.50 (BEAKER) (test code = 414) MONOCYTES ABSOLUTE COUNT (BEAKER) 0.38 K/ L 0.00-1.30 (test code = 415) EOSINOPHILS ABSOLUTE COUNT 0.02 K/ L 0.00-0.50 (BEAKER) (test code = 416) BASOPHILS ABSOLUTE COUNT (BEAKER) 0.01 K/ L 0.00-0.20 (test code = 417) IMMATURE GRANULOCYTES-RELATIVE 2 % 0-0 H PERCENT (BEAKER) (test code = 2801) POCT-GLUCOSE [id number] 20:50:37 Test Item Value Reference Range Interpretation Comments POC-GLUCOSE METER 176 mg/dL 70-110 H : TESTED A T [facility] [address] (BEAKER) (test code [facility] [address], = 1538) [place] [id number]: 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/Techni unique ID = [id number] for Tammie cooper Elizabeth POCT-GLUCOSE [id number] 17:10:15 Test Item Value Reference Range Interpretation Comments POC-GLUCOSE METER 223 mg/dL 70-110 H : TESTED A T [facility] [address] (BEAKER) (test code [facility], = 1538) [place] [id number]: 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/Techni unique ID = [id number] for Breanna Helm POCT-GLUCOSE [id number] 11:50:56 Test Item Value Reference Range Interpretation Comments POC-GLUCOSE METER 241 mg/dL 70-110 H : [facility] (test code [address], = 1538) [facility] [address]: 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/Techni unique ID = [id number] for Breanna Helm, CHEST, 1 VIEW, NON [id number] 09:19:00Reason for exam:->[facility]na [facility] : 1950 Sex: FFINAL REPORT Chest, 1 view, 07/10/2021 8:16 AM. History: Hypoxia, Covid pneumonia. Comparison: 07/06/2021. Discussion: The cardiac silhouette is stable. Bilateral interstitial and patchy airspace opacities are unchanged. There is no pneumothorax or pleural effusion. The soft tissues and osseous structures are intact. IMPRESSION: Bilateral pneumonia without significant felix nge. Signed: Francisco Perez Verified Date/Time: 07/10/2021 09:19:31 Reading Location: [facility] Radiology Reading Room POCT-GLUCOSE [id number] 06:20:04 Test Item Value Reference Range Interpretation Comments POC-GLUCOSE METER 207 mg/dL 70-110 H : TESTED A T [facility] [address] (BEAKER) (test code [address], = 1538) [facility] [address]: 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/Techni unique ID = [id number] for Jesus Gil COMPREHENSIVE METABOLIC [id number] 05:46:05 Test Item Value Reference Range Interpretation Comments TOTAL PROTEIN 4.0 gm/dL 6.0-8.5 L (BEAKER) (test code = 770) ALBUMIN (BEAKER) 2.2 g/dL 3.5-5.0 L (test code = 1145) ALKALINE PHOSPHATASE 40 U/L 30-115 (BEAKER) (test code = 346) BILIRUBIN TOTAL 0.5 mg/dL 0.1-1.2 (BEAKER) (test code = 377) SODIUM (BEAKER) (test 142 meq/L 135-148 code = 381) POTASSIUM (BEAKER) 2.8 meq/L 3.6-5.5 L (test code = 379) CHLORIDE (BEAKER) 110 meq/L 98-106 H (test code = 382) CO2 (BEAKER) (test 22 meq/L 20-29 code = 355) BLOOD UREA NITROGEN 19 mg/dL 10-26 (BEAKER) (test code = 354) CREATININE (BEAKER) 0.71 mg/dL 0.50-1.20 (test code = 358) GLUCOSE RANDOM 142 mg/dL 70-110 H (BEAKER) (test code = 652) CALCIUM (BEAKER) 8.0 mg/dL 8.5-10.5 L (test code = 697) AST (SGOT) (BEAKER) 15 U/L 5-40 (test code = 353) ALT (SGPT) (BEAKER) 31 U/L 5-50 (test code = 347) EGFR (BEAKER) (test 98 mL/min/1.73 ESTIMA ARNOLD GFR IS code = 1092) sq m NOT ACCURATE CREATININE CLEARANCE IN PREDICTING GLOMERULAR FILTRATION RATE . ESTIMATED GFR I S NOT APPLICABLE FOR DIALYSIS PATIEN TS. 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 ID - [id number] ID - [id number] ID - [id number] ID - [id number] ID - [id number] ID - [id number] ID - [id number] ID - [id number] ID - [id number] ID - [id number] ID - [id number] ID - [id number] ID - [id number] ID - [id number] ID - [id number] ID - [id number] 05:44:15 Test Item Value Reference Range Interpretation Comments MAGNESIUM (BEAKER) (test code = 2.0 mg/dL 1.5-3.0 627) 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 ID - [id number] ID - [id number] ID - [id number] ID - [id number] W/PLT COUNT & AUTO [id number] 05:11:45 Test Item Value Reference Range Interpretation Comments WHITE BLOOD CELL COUNT (BEAKER) 5.3 K/ L 4.0-10.0 (test code = 775) RED BLOOD CELL COUNT (BEAKER) 2.49 M/ L 4.00-5.00 L (test code = 761) HEMOGLOBIN (BEAKER) (test code = 7.8 GM/DL 12.0-15.5 L 410) HEMATOCRIT (BEAKER) (test code = 24.3 % 36.0-46.0 L 411) MEAN CORPUSCULAR VOLUME (BEAKER) 97.6 fL 82.0-99.0 (test code = 753) MEAN CORPUSCULAR HEMOGLOBIN 31.3 pg 27.0-33.0 (BEAKER) (test code = 751) MEAN CORPUSCULAR HEMOGLOBIN CONC 32.1 GM/DL 32.0-36.0 (BEAKER) (test code = 752) RED CELL DISTRIBUTION WIDTH 20.8 % 12.0-15.0 H (BEAKER) (test code = 412) PLATELET COUNT (BEAKER) (test code 76 K/CU MM 150-430 L = 756) MEAN PLATELET VOLUME (BEAKER) 10.6 fL 6.0-11.5 (test code = 754) NUCLEATED RED BLOOD CELLS (BEAKER) 1 /100 WBC 0-0 H (test code = 413) NEUTROPHILS RELATIVE PERCENT 62 % (BEAKER) (test code = 429) LYMPHOCYTES RELATIVE PERCENT 28 % (BEAKER) (test code = 430) MONOCYTES RELATIVE PERCENT 7 % (BEAKER) (test code = 431) EOSINOPHILS RELATIVE PERCENT 0 % (BEAKER) (test code = 432) BASOPHILS RELATIVE PERCENT 0 % (BEAKER) (test code = 437) NEUTROPHILS ABSOLUTE COUNT 3.30 K/ L 1.80-8.00 (BEAKER) (test code = 670) LYMPHOCYTES ABSOLUTE COUNT 1.51 K/ L 1.48-4.50 (BEAKER) (test code = 414) MONOCYTES ABSOLUTE COUNT (BEAKER) 0.35 K/ L 0.00-1.30 (test code = 415) EOSINOPHILS ABSOLUTE COUNT 0.02 K/ L 0.00-0.50 (BEAKER) (test code = 416) BASOPHILS ABSOLUTE COUNT (BEAKER) 0.01 K/ L 0.00-0.20 (test code = 417) IMMATURE GRANULOCYTES-RELATIVE 2 % 0-0 H PERCENT (BEAKER) (test code = 2801) POCT-GLUCOSE [id number] 20:27:38 Test Item Value Reference Range Interpretation Comments POC-GLUCOSE METER 191 mg/dL 70-110 H : TESTED A T [facility] (BEAKER) (test code [facility], = 1538) [place] [address]: 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/Techni unique ID = [id number] for Vanita e Don POCT-GLUCOSE [id number] 18:34:59 Test Item Value Reference Range Interpretation Comments POC-GLUCOSE METER 241 mg/dL 70-110 H : TESTED A T [facility] [address] (BEAKER) (test code [facility], = 1538) [place] [address]: 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/Techni unique ID = [id number] for Juany r, Breanna POCT-GLUCOSE [id number] 18:34:58 Test Item Value Reference Range Interpretation Comments POC-GLUCOSE METER 240 mg/dL 70-110 H : TESTED A T [facility] [address] (BEAKER) (test code [facility], = 1538) [place] [address]: 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/Techni unique ID = [id number] for Juany r, Breanna POCT-GLUCOSE [id number] 06:43:22 Test Item Value Reference Range Interpretation Comments POC-GLUCOSE METER 102 mg/dL 70-110 : TESTED A T [facility] [address] (BEAKER) (test code [facility], = 1538) [place] [address]: 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/Techni unique ID = [id number] for Will Rodrigo serranocas POCT-GLUCOSE [id number] 20:38:01 Test Item Value Reference Range Interpretation Comments POC-GLUCOSE METER 217 mg/dL 70-110 H : [facility] A T [facility] (BEAKER) [facility] [place] [address]: 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/Techni unique ID = [id number] for Ila Zhao POCT-GLUCOSE [id number] 15:50:59 Test Item Value Reference Range Interpretation Comments POC-GLUCOSE METER 292 mg/dL 70-110 H : TESTED A T [facility] [address] (BEAKER) (test code [address], = 1538) [place] [address]: 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/Techni unique ID = [id number] for Cerv antes, Crystal POCT-GLUCOSE [id number] 11:51:33 Test Item Value Reference Range Interpretation Comments POC-GLUCOSE METER 126 mg/dL 70-110 H : TESTED A T [facility] [address] (BEAKER) (test code [address], = 1538) [place] [address]: 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/Techni unique ID = [id number] for Cerv antes, Crystal POCT-GLUCOSE [id number] 11:51:31 Test Item Value Reference Range Interpretation Comments POC-GLUCOSE METER 177 mg/dL 70-110 H : TESTED A T [facility] [address] (BEAKER) (test code [address], = 1538) [place] [address]: 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/Techni unique ID = [id number] for Josiane Vicente COMPREHENSIVE METABOLIC [id number] 05:57:28 Test Item Value Reference Range Interpretation Comments TOTAL PROTEIN 4.4 gm/dL 6.0-8.5 L (BEAKER) (test code = 770) ALBUMIN (BEAKER) 2.3 g/dL 3.5-5.0 L (test code = 1145) ALKALINE PHOSPHATASE 40 U/L 30-115 (BEAKER) (test code = 346) BILIRUBIN TOTAL 0.5 mg/dL 0.1-1.2 (BEAKER) (test code = 377) SODIUM (BEAKER) (test 142 meq/L 135-148 code = 381) POTASSIUM (BEAKER) 3.8 meq/L 3.6-5.5 (test code = 379) CHLORIDE (BEAKER) 112 meq/L 98-106 H (test code = 382) CO2 (BEAKER) (test 20 meq/L 20-29 code = 355) BLOOD UREA NITROGEN 16 mg/dL 10-26 (BEAKER) (test code = 354) CREATININE (BEAKER) 0.64 mg/dL 0.50-1.20 (test code = 358) GLUCOSE RANDOM 185 mg/dL 70-110 H (BEAKER) (test code = 652) CALCIUM (BEAKER) 8.0 mg/dL 8.5-10.5 L (test code = 697) AST (SGOT) (BEAKER) 17 U/L 5-40 (test code = 353) ALT (SGPT) (BEAKER) 35 U/L 5-50 (test code = 347) EGFR (BEAKER) (test 111 ESTIMATE D GFR IS code = 1092) mL/min/1.73 sq NOT ACCURA TE m CREATININE CLEARANCE IN PREDICTING GLOMERULAR FILTRATION RATE . ESTIMATED GFR I S NOT APPLICABLE FOR DIALYSIS PATIEN TS. 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 ID - [id number] ID - [id number] ID - [id number] ID - [id number] ID - [id number] ID - [id number] ID - [id number] ID - [id number] ID - [id number] ID - [id number] ID - [id number] ID - [id number] ID - [id number] ID - [id number] ID - [id number] ID - [id number] 05:53:42 Test Item Value Reference Range Interpretation Comments MAGNESIUM (BEAKER) (test code = 1.8 mg/dL 1.5-3.0 627) 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 ID - [id number] ID - [id number] ID - [id number] ID - [id number] W/PLT COUNT & AUTO [id number] 05:37:23 Test Item Value Reference Range Interpretation Comments WHITE BLOOD CELL COUNT (BEAKER) 7.0 K/ L 4.0-10.0 (test code = 775) RED BLOOD CELL COUNT (BEAKER) 2.82 M/ L 4.00-5.00 L (test code = 761) HEMOGLOBIN (BEAKER) (test code = 8.6 GM/DL 12.0-15.5 L 410) HEMATOCRIT (BEAKER) (test code = 26.5 % 36.0-46.0 L 411) MEAN CORPUSCULAR VOLUME (BEAKER) 94.0 fL 82.0-99.0 (test code = 753) MEAN CORPUSCULAR HEMOGLOBIN 30.5 pg 27.0-33.0 (BEAKER) (test code = 751) MEAN CORPUSCULAR HEMOGLOBIN CONC 32.5 GM/DL 32.0-36.0 (BEAKER) (test code = 752) RED CELL DISTRIBUTION WIDTH 20.5 % 12.0-15.0 H (BEAKER) (test code = 412) PLATELET COUNT (BEAKER) (test code 88 K/CU MM 150-430 L = 756) MEAN PLATELET VOLUME (BEAKER) 11.3 fL 6.0-11.5 (test code = 754) NUCLEATED RED BLOOD CELLS (BEAKER) 4 /100 WBC 0-0 H (test code = 413) NEUTROPHILS RELATIVE PERCENT 75 % (BEAKER) (test code = 429) LYMPHOCYTES RELATIVE PERCENT 16 % (BEAKER) (test code = 430) MONOCYTES RELATIVE PERCENT 5 % (BEAKER) (test code = 431) EOSINOPHILS RELATIVE PERCENT 0 % (BEAKER) (test code = 432) BASOPHILS RELATIVE PERCENT 0 % (BEAKER) (test code = 437) NEUTROPHILS ABSOLUTE COUNT 5.21 K/ L 1.80-8.00 (BEAKER) (test code = 670) LYMPHOCYTES ABSOLUTE COUNT 1.14 K/ L 1.48-4.50 L (BEAKER) (test code = 414) MONOCYTES ABSOLUTE COUNT (BEAKER) 0.32 K/ L 0.00-1.30 (test code = 415) EOSINOPHILS ABSOLUTE COUNT 0.00 K/ L 0.00-0.50 (BEAKER) (test code = 416) BASOPHILS ABSOLUTE COUNT (BEAKER) 0.01 K/ L 0.00-0.20 (test code = 417) IMMATURE GRANULOCYTES-RELATIVE 4 % 0-0 H PERCENT (BEAKER) (test code = 2801) POCT-GLUCOSE [id number] 23:12:51 Test Item Value Reference Range Interpretation Comments POC-GLUCOSE METER 244 mg/dL 70-110 H : TESTED A [facility] [address] (BEAKER) (test code [facility] [address], = 1538) [place] [address]: 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/Techni unique ID = [id number] for Josiane Vicente POCT-GLUCOSE [id number] 15:53:03 Test Item Value Reference Range Interpretation Comments POC-GLUCOSE METER 237 mg/dL 70-110 H : TESTED A T [facility] (BEAKER) (test code [address], = 1538) [facility] [address]: 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/Techni unique ID = [id number] for Cerv antes, Crystal HEMORRHAGE IMAGING, [id number] 12:49:00We need the study done todayUnlisted Reason for Exam - Click Yes and Enter Reason Below->No [facility] : 1950 Sex: FFINAL REPORT PROCEDURE: HEMORRHAGE STUDY with RBCs CPT CODE:95870 INDICATION: Gastrointestinal Bleeding PROTOCOL: 28.4 mCi of Tc-99m was injected intravenously as labeled autologous red blood cells. Flow images of the abdomen were obtained, followed by serial images for approximately 60 minutes. Additional images were obtained 14 hours after tracer injection. FINDINGS: There is physiological tracer distribution in the blood pool. IMPRESSION: Negative study. No evidence of active hemorrhage is seen. Signed: Jason Conroy Verified Date/Time: 07/07/2021 12:49:47 POCT- GLUCOSE [id number] 12:10:46 Test Item Value Reference Range Interpretation Comments POC-GLUCOSE METER 168 mg/dL 70-110 H : TESTED A T [facility] (BEAKER) (test code [address], = 1538) [place] [address]: 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/Techni unique ID = [id number] for Meme Buckner COMPREHENSIVE METABOLIC [id number] 07:13:02 Test Item Value Reference Range Interpretation Comments TOTAL PROTEIN 4.6 gm/dL 6.0-8.5 L (BEAKER) (test code = 770) ALBUMIN (BEAKER) 2.4 g/dL 3.5-5.0 L (test code = 1145) ALKALINE PHOSPHATASE 45 U/L 30-115 (BEAKER) (test code = 346) BILIRUBIN TOTAL 0.6 mg/dL 0.1-1.2 (BEAKER) (test code = 377) SODIUM (BEAKER) (test 140 meq/L 135-148 code = 381) POTASSIUM (BEAKER) 3.8 meq/L 3.6-5.5 (test code = 379) CHLORIDE (BEAKER) 112 meq/L 98-106 H (test code = 382) CO2 (BEAKER) (test 19 meq/L 20-29 L code = 355) BLOOD UREA NITROGEN 18 mg/dL 10-26 (BEAKER) (test code = 354) CREATININE (BEAKER) 0.66 mg/dL 0.50-1.20 (test code = 358) GLUCOSE RANDOM 191 mg/dL 70-110 H (BEAKER) (test code = 652) CALCIUM (BEAKER) 8.2 mg/dL 8.5-10.5 L (test code = 697) AST (SGOT) (BEAKER) 17 U/L 5-40 (test code = 353) ALT (SGPT) (BEAKER) 37 U/L 5-50 (test code = 347) EGFR (BEAKER) (test 107 ESTIMATE D GFR IS code = 1092) mL/min/1.73 sq NOT ACCURA TE m CREATININE CLEARANCE IN PREDICTING GLOMERULAR FILTRATION RATE . ESTIMATED GFR I S NOT APPLICABLE FOR DIALYSIS PATIEN TS. 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 ID - LITOOperator ID - LITOOperator ID - LITOOperator ID - LITOOperator ID - LITOOperator ID - LITOOperator ID - LITOOperator ID - LITOOperator ID - LITOOperator ID - LITOOperator ID - LITOOperator ID - LITOOperator ID - LITOOperator ID - LITOOperator ID - LITOOperator ID - [id number] 07:08:35 Test Item Value Reference Range Interpretation Comments MAGNESIUM (BEAKER) (test code = 2.0 mg/dL 1.5-3.0 627) 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 ID - LITOOperator ID - LITOOperator ID - LITOOperator ID - LITOCBC W/PLT COUNT & AUTO [id number] 06:56:12 Test Item Value Reference Range Interpretation Comments WHITE BLOOD CELL COUNT (BEAKER) 7.3 K/ L 4.0-10.0 (test code = 775) RED BLOOD CELL COUNT (BEAKER) 2.51 M/ L 4.00-5.00 L (test code = 761) HEMOGLOBIN (BEAKER) (test code = 7.8 GM/DL 12.0-15.5 L 410) HEMATOCRIT (BEAKER) (test code = 24.7 % 36.0-46.0 L 411) MEAN CORPUSCULAR VOLUME (BEAKER) 98.4 fL 82.0-99.0 (test code = 753) MEAN CORPUSCULAR HEMOGLOBIN 31.1 pg 27.0-33.0 (BEAKER) (test code = 751) MEAN CORPUSCULAR HEMOGLOBIN CONC 31.6 GM/DL 32.0-36.0 L (BEAKER) (test code = 752) RED CELL DISTRIBUTION WIDTH 18.3 % 12.0-15.0 H (BEAKER) (test code = 412) PLATELET COUNT (BEAKER) (test code 86 K/CU MM 150-430 L = 756) MEAN PLATELET VOLUME (BEAKER) 10.9 fL 6.0-11.5 (test code = 754) NUCLEATED RED BLOOD CELLS (BEAKER) 2 /100 WBC 0-0 H (test code = 413) NEUTROPHILS RELATIVE PERCENT 77 % (BEAKER) (test code = 429) LYMPHOCYTES RELATIVE PERCENT 15 % (BEAKER) (test code = 430) MONOCYTES RELATIVE PERCENT 4 % (BEAKER) (test code = 431) EOSINOPHILS RELATIVE PERCENT 0 % (BEAKER) (test code = 432) BASOPHILS RELATIVE PERCENT 0 % (BEAKER) (test code = 437) NEUTROPHILS ABSOLUTE COUNT 5.59 K/ L 1.80-8.00 (BEAKER) (test code = 670) LYMPHOCYTES ABSOLUTE COUNT 1.07 K/ L 1.48-4.50 L (BEAKER) (test code = 414) MONOCYTES ABSOLUTE COUNT (BEAKER) 0.32 K/ L 0.00-1.30 (test code = 415) EOSINOPHILS ABSOLUTE COUNT 0.00 K/ L 0.00-0.50 (BEAKER) (test code = 416) BASOPHILS ABSOLUTE COUNT (BEAKER) 0.01 K/ L 0.00-0.20 (test code = 417) IMMATURE GRANULOCYTES-RELATIVE 4 % 0-0 H PERCENT (BEAKER) (test code = 2801) POCT-GLUCOSE [id number] 06:52:19 Test Item Value Reference Range Interpretation Comments POC-GLUCOSE METER 206 mg/dL 70-110 H : [facility] (BEAKER[facility] (test code [facility], = 1538) [place] [id number]: 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/Techni unique ID = [id number] for Elizabeth Joshua POCT-GLUCOSE [id number] 23:49:27 Test Item Value Reference Range Interpretation Comments POC-GLUCOSE METER 140 mg/dL 70-110 H : TESTED A T [facility] 1317 (BEAKER) (test code [facility], = 1538) [place] [id number]: 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/Techni unique ID = [id number] for Josiane Vicente POCT-GLUCOSE [id number] 16:45:28 Test Item Value Reference Range Interpretation Comments POC-GLUCOSE METER 212 mg/dL 70-110 H : Notified RN/MD: TESTED (BEAKER) (test code AT [facility] [address] [address] = 1538) [place] [id number]: 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/Techni unique ID = [id number] for Ezchema ieannie Erika CBC W/PLT COUNT & AUTO [id number] 15:09:27 Test Item Value Reference Range Interpretation Comments WHITE BLOOD CELL COUNT (BEAKER) 6.9 K/ L 4.0-10.0 (test code = 775) RED BLOOD CELL COUNT (BEAKER) 2.06 M/ L 4.00-5.00 L (test code = 761) HEMOGLOBIN (BEAKER) (test code = 6.6 GM/DL 12.0-15.5 L 410) HEMATOCRIT (BEAKER) (test code = 21.2 % 36.0-46.0 L 411) MEAN CORPUSCULAR VOLUME (BEAKER) 102.9 fL 82.0-99.0 H (test code = 753) MEAN CORPUSCULAR HEMOGLOBIN 32.0 pg 27.0-33.0 (BEAKER) (test code = 751) MEAN CORPUSCULAR HEMOGLOBIN CONC 31.1 GM/DL 32.0-36.0 L (BEAKER) (test code = 752) RED CELL DISTRIBUTION WIDTH 17.8 % 12.0-15.0 H (BEAKER) (test code = 412) PLATELET COUNT (BEAKER) (test code 92 K/CU MM 150-430 L = 756) MEAN PLATELET VOLUME (BEAKER) 10.8 fL 6.0-11.5 (test code = 754) NUCLEATED RED BLOOD CELLS (BEAKER) 2 /100 WBC 0-0 H (test code = 413) (MANUAL DIFFERENTIAL)[id number] 15:09:27 Test Item Value Reference Range Interpretation Comments NEUTROPHILS - REL (DIFF) (BEAKER) 92 % (test code = 1359) LYMPHOCYTES - REL (DIFF) (BEAKER) 7 % (test code = 1360) METAMYELOCYTES-REL (DIFF) (BEAKER) 1 % 0-0 H (test code = 258) NEUTROPHILS - ABS (DIFF) (BEAKER) 6.35 K/ L 1.80-8.00 (test code = 1365) LYMPHOCYTES - ABS (DIFF) (BEAKER) 0.48 K/ L 1.48-4.50 L (test code = 1366) METAMYELOCTYES - ABS (DIFF) 0.07 K/ L 0.00-0.00 H (BEAKER) (test code = 261) TOTAL COUNTED (BEAKER) (test code 100 = 1351) MANUAL NRBC PER 100 CELLS (BEAKER) 1 /100 WBC 0-0 H (test code = 1353) WBC MORPHOLOGY (BEAKER) (test code Normal = 487) PLT MORPHOLOGY (BEAKER) (test code Normal = 486) RBC MORPHOLOGY (BEAKER) (test code Normal = 762) COMPREHENSIVE METABOLIC [id number] 13:56:55 Test Item Value Reference Range Interpretation Comments TOTAL PROTEIN 4.4 gm/dL 6.0-8.5 L (BEAKER) (test code = 770) ALBUMIN (BEAKER) 2.3 g/dL 3.5-5.0 L (test code = 1145) ALKALINE PHOSPHATASE 45 U/L 30-115 (BEAKER) (test code = 346) BILIRUBIN TOTAL 0.4 mg/dL 0.1-1.2 (BEAKER) (test code = 377) SODIUM (BEAKER) (test 139 meq/L 135-148 code = 381) POTASSIUM (BEAKER) 4.3 meq/L 3.6-5.5 (test code = 379) CHLORIDE (BEAKER) 111 meq/L 98-106 H (test code = 382) CO2 (BEAKER) (test 16 meq/L 20-29 L code = 355) BLOOD UREA NITROGEN 22 mg/dL 10-26 (BEAKER) (test code = 354) CREATININE (BEAKER) 0.74 mg/dL 0.50-1.20 (test code = 358) GLUCOSE RANDOM 253 mg/dL 70-110 H (BEAKER) (test code = 652) CALCIUM (BEAKER) 8.1 mg/dL 8.5-10.5 L (test code = 697) AST (SGOT) (BEAKER) 19 U/L 5-40 (test code = 353) ALT (SGPT) (BEAKER) 42 U/L 5-50 (test code = 347) EGFR (BEAKER) (test 94 mL/min/1.73 ESTIMA ARNOLD GFR IS code = 1092) sq m NOT ACCURATE CREATININE CLEARANCE IN PREDICTING GLOMERULAR FILTRATION RATE . ESTIMATED GFR I S NOT APPLICABLE FOR DIALYSIS PATIEN TS. 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 ID - ACONTEHOperator ID - ACONTEHOperator ID - ACONTEHOperator ID - ACONTEHOperator ID - ACONTEHOperator ID - ACONTEHOperator ID - ACONTEHOperator ID - ACONTEHOperator ID - ACONTEHOperator ID - ACONTEHOperator ID - ACONTEHOperator ID - ACONTEHOperator ID - ACONTEHOperator ID - ACONTEHOperatorID - ACONTEHOperator ID - [id number] 13:53:54 Test Item Value Reference Range Interpretation Comments MAGNESIUM (BEAKER) (test code = 2.1 mg/dL 1.5-3.0 627) 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 ID - ACONTEHOperator ID - ACONTEHOperator ID - ACONTEHOperator ID - ACONTEHPOCT-GLUCOSE [id number] 13:04:56 Test Item Value Reference Range Interpretation Comments POC-GLUCOSE METER 223 mg/dL 70-110 H : Notified RN/MD: TESTED (VIKRAM) (test code AT [facility] [address] [place] [address] = 1538) [facility] [id number]: 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/Techni unique ID = [id number] for Ezek iel, Erika RAD, CHEST, 1 VIEW, NON [id number] 09:59:00Reason for exam:->covid pnaShould this be performed at the bedside?->Yes [facility] : 1950 Sex: FFINAL REPORT Chest, 1 view, 07/06/2021 8:20 AM. History: Covid pneumonia. Comparison: 07/03/2021. Discussion: The cardiac silhouette is stable. Bilateral interstitial and patchy airspace opacities are present, with slightly improved aeration at the lung bases. There is nopneumothorax or pleural effusion. Supporting lines and tubes are unchanged. The soft tissues and oss eous structures are intact. IMPRESSION: Bilateral pneumonia, slightly improved. Signed: Francisco Perez Verified Date/Time: 07/06/2021 09:59:51 Reading Location: [facility] Radiology Reading Room POCT-GLUCOSE [id number] 06:43:25 Test Item Value Reference Range Interpretation Comments POC-GLUCOSE METER 200 mg/dL 70-110 H : TESTED A T [facility] (test code [address] [facility], = 1538) [place] [id number]: 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/Techni unique ID = [id number] for Elizabeth Joshua POCT-GLUCOSE [id number] 16:15:23 Test Item Value Reference Range Interpretation Comments POC-GLUCOSE METER 318 mg/dL 70-110 H : Notified RN/MD: TESTED (BANNER) (test code AT [facility] [address] = 1538) [place] [address]: 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/Techni unique ID = [id number] for Ezek iel, Erika POCT-GLUCOSE [id number] 12:25:37 Test Item Value Reference Range Interpretation Comments POC-GLUCOSE METER 213 mg/dL 70-110 H : Notified RN/MD: TESTED (BANNER) (test code AT [facility] [address] = 1538) [place] [address]: 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/Techni unique ID = [id number] for Ezek iel, Erika POCT-GLUCOSE [id number] 06:53:05 Test Item Value Reference Range Interpretation Comments POC-GLUCOSE METER 177 mg/dL 70-110 H : Notified RN/MD: TESTED (BANNER) (test code AT [facility] [address] = 1538) [place] [address]: 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/Techni unique ID = [id number] for Frankisheron Nimesh fermin COMPREHENSIVE METABOLIC [id number] 05:51:50 Test Item Value Reference Range Interpretation Comments TOTAL PROTEIN 4.0 gm/dL 6.0-8.5 L (BEAKER) (test code = 770) ALBUMIN (BEAKER) 2.1 g/dL 3.5-5.0 L (test code = 1145) ALKALINE PHOSPHATASE 37 U/L 30-115 (BEAKER) (test code = 346) BILIRUBIN TOTAL 0.4 mg/dL 0.1-1.2 (BEAKER) (test code = 377) SODIUM (BEAKER) (test 140 meq/L 135-148 code = 381) POTASSIUM (BEAKER) 3.8 meq/L 3.6-5.5 (test code = 379) CHLORIDE (BEAKER) 112 meq/L 98-106 H (test code = 382) CO2 (BEAKER) (test 20 meq/L 20-29 code = 355) BLOOD UREA NITROGEN 22 mg/dL 10-26 (BEAKER) (test code = 354) CREATININE (BEAKER) 0.70 mg/dL 0.50-1.20 (test code = 358) GLUCOSE RANDOM 175 mg/dL 70-110 H (BEAKER) (test code = 652) CALCIUM (BEAKER) 7.8 mg/dL 8.5-10.5 L (test code = 697) AST (SGOT) (BEAKER) 19 U/L 5-40 (test code = 353) ALT (SGPT) (BEAKER) 40 U/L 5-50 (test code = 347) EGFR (BEAKER) (test 100 ESTIMATE D GFR IS code = 1092) mL/min/1.73 sq NOT ACCURA TE m CREATININE CLEARANCE IN PREDICTING GLOMERULAR FILTRATION RATE . ESTIMATED GFR I S NOT APPLICABLE FOR DIALYSIS PATIEN TS. 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 ID - [id number] ID - [id number] ID - [id number] ID - [id number] ID - [id number] ID - [id number] ID - [id number] ID - [id number] ID - [id number] ID - [id number] ID - [id number] ID - [id number] ID - [id number] ID - [id number] ID - [id number] ID - [id number] W/PLT COUNT & AUTO [id number] 05:50:47 Test Item Value Reference Range Interpretation Comments WHITE BLOOD CELL COUNT (BEAKER) 8.0 K/ L 4.0-10.0 (test code = 775) RED BLOOD CELL COUNT (BEAKER) 2.27 M/ L 4.00-5.00 L (test code = 761) HEMOGLOBIN (BEAKER) (test code = 7.2 GM/DL 12.0-15.5 L 410) HEMATOCRIT (BEAKER) (test code = 22.8 % 36.0-46.0 L 411) MEAN CORPUSCULAR VOLUME (BEAKER) 100.4 fL 82.0-99.0 H (test code = 753) MEAN CORPUSCULAR HEMOGLOBIN 31.7 pg 27.0-33.0 (BEAKER) (test code = 751) MEAN CORPUSCULAR HEMOGLOBIN CONC 31.6 GM/DL 32.0-36.0 L (BEAKER) (test code = 752) RED CELL DISTRIBUTION WIDTH 16.8 % 12.0-15.0 H (BEAKER) (test code = 412) PLATELET COUNT (BEAKER) (test code 90 K/CU MM 150-430 L = 756) MEAN PLATELET VOLUME (BEAKER) 11.0 fL 6.0-11.5 (test code = 754) NUCLEATED RED BLOOD CELLS (BEAKER) 4 /100 WBC 0-0 H (test code = 413) NEUTROPHILS RELATIVE PERCENT 76 % (BEAKER) (test code = 429) LYMPHOCYTES RELATIVE PERCENT 15 % (BEAKER) (test code = 430) MONOCYTES RELATIVE PERCENT 4 % (BEAKER) (test code = 431) EOSINOPHILS RELATIVE PERCENT 1 % (BEAKER) (test code = 432) BASOPHILS RELATIVE PERCENT 0 % (BEAKER) (test code = 437) NEUTROPHILS ABSOLUTE COUNT 6.12 K/ L 1.80-8.00 (BEAKER) (test code = 670) LYMPHOCYTES ABSOLUTE COUNT 1.20 K/ L 1.48-4.50 L (BEAKER) (test code = 414) MONOCYTES ABSOLUTE COUNT (BEAKER) 0.28 K/ L 0.00-1.30 (test code = 415) EOSINOPHILS ABSOLUTE COUNT 0.05 K/ L 0.00-0.50 (BEAKER) (test code = 416) BASOPHILS ABSOLUTE COUNT (BEAKER) 0.01 K/ L 0.00-0.20 (test code = 417) IMMATURE GRANULOCYTES-RELATIVE 5 % 0-0 H PERCENT (BEAKER) (test code = 2801) [id number] 05:43:09 Test Item Value Reference Range Interpretation Comments MAGNESIUM (BEAKER) (test code = 2.3 mg/dL 1.5-3.0 627) 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 ID - [id number] ID - [id number] ID - [id number] ID - [id number](MANUAL DIFFERENTIAL)2021-07-04 21:10:33 Test Item Value Reference Range Interpretation Comments NEUTROPHILS - REL (DIFF) (BEAKER) 83 % (test code = 1359) LYMPHOCYTES - REL (DIFF) (BEAKER) 14 % (test code = 1360) MONOCYTES - REL (DIFF) (BEAKER) 2 % (test code = 1361) MYELOCYTES-REL (DIFF) (BEAKER) 1 % 0-0 H (test code = 1594) NEUTROPHILS - ABS (DIFF) (BEAKER) 6.23 K/ L 1.80-8.00 (test code = 1365) LYMPHOCYTES - ABS (DIFF) (BEAKER) 1.05 K/ L 1.48-4.50 L (test code = 1366) MONOCYTES - ABS (DIFF) (BEAKER) 0.15 K/ L 0.00-1.30 (test code = 1367) MYELOCYTES-ABS (DIFF) (BEAKER) 0.08 K/ L 0.00-0.00 H (test code = 1593) TOTAL COUNTED (BEAKER) (test code 100 = 1351) MANUAL NRBC PER 100 CELLS (BEAKER) 4 /100 WBC 0-0 H (test code = 1353) WBC MORPHOLOGY (BEAKER) (test code Normal = 487) PLT MORPHOLOGY (BEAKER) (test code Normal = 486) RBC MORPHOLOGY (BEAKER) (test code Normal = 762) CBC W/PLT COUNT & AUTO [id number] 21:10:32 Test Item Value Reference Range Interpretation Comments WHITE BLOOD CELL COUNT (BEAKER) 7.5 K/ L 4.0-10.0 (test code = 775) RED BLOOD CELL COUNT (BEAKER) 2.25 M/ L 4.00-5.00 L (test code = 761) HEMOGLOBIN (BEAKER) (test code = 7.3 GM/DL 12.0-15.5 L 410) HEMATOCRIT (BEAKER) (test code = 22.3 % 36.0-46.0 L 411) MEAN CORPUSCULAR VOLUME (BEAKER) 99.1 fL 82.0-99.0 H (test code = 753) MEAN CORPUSCULAR HEMOGLOBIN 32.4 pg 27.0-33.0 (BEAKER) (test code = 751) MEAN CORPUSCULAR HEMOGLOBIN CONC 32.7 GM/DL 32.0-36.0 (BEAKER) (test code = 752) RED CELL DISTRIBUTION WIDTH 15.9 % 12.0-15.0 H (BEAKER) (test code = 412) PLATELET COUNT (BEAKER) (test code 94 K/CU MM 150-430 L = 756) MEAN PLATELET VOLUME (BEAKER) 10.7 fL 6.0-11.5 (test code = 754) NUCLEATED RED BLOOD CELLS (BEAKER) 4 /100 WBC 0-0 H (test code = 413) POCT-GLUCOSE [id number] 20:24:31 Test Item Value Reference Range Interpretation Comments POC-GLUCOSE METER 221 mg/dL 70-110 H : Notified RN/MD: TESTED (BEAKER) (test code AT [facility] [address] PO[address] = 1538) [place] [address]: 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/Techni unique ID = [id number] for Asya Estes POCT-GLUCOSE [id number] 16:30:17 Test Item Value Reference Range Interpretation Comments POC-GLUCOSE METER 279 mg/dL 70-110 H : Notified RN/MD: TESTED (BANNER) (test code AT [facility] [address] PO[address] = 1538) [place] [address]: 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/Techni unique ID = [id number] for Ezek iel, Erika POCT-GLUCOSE [id number] 11:53:19 Test Item Value Reference Range Interpretation Comments POC-GLUCOSE METER 235 mg/dL 70-110 H : Not[facility] RN/MD: [facility] (test code AT [facility] [address] PO[address] = 1538) [place] [address]: 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/Techni unique ID = [id number] for Ezek iel, Erika [id number] 05:58:15 Test Item Value Reference Range Interpretation Comments MAGNESIUM (BEAKER) (test code = 1.6 mg/dL 1.5-3.0 627) 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 ID - LITOOperator ID - LITOOperator ID - LITOOperator ID - LITOC- REACTIVE [id number] 05:57:52 Test Item Value Reference Range Interpretation Comments C-REACTIVE PROTEIN (BEAKER) (test 1.16 mg/dL 0.00-0.50 H code = 676) 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 ID - LITOBASIC METABOLIC [id number] 05:57:46 Test Item Value Reference Range Interpretation Comments SODIUM (BEAKER) 138 meq/L 135-148 (test code = 381) POTASSIUM (BEAKER) 2.9 meq/L 3.6-5.5 L (test code = 379) CHLORIDE (BEAKER) 108 meq/L 98-106 H (test code = 382) CO2 (BEAKER) (test 20 meq/L 20-29 code = 355) BLOOD UREA NITROGEN 18 mg/dL 10-26 (BEAKER) (test code = 354) CREATININE (BEAKER) 0.72 mg/dL 0.50-1.20 (test code = 358) GLUCOSE RANDOM 261 mg/dL 70-110 H (BEAKER) (test code = 652) CALCIUM (BEAKER) 7.9 mg/dL 8.5-10.5 L (test code = 697) EGFR (BEAKER) (test 97 mL/min/1.73 ESTIMA ARNOLD GFR IS code = 1092) sq m NOT ACCURATE CREATININE CLEARANCE IN PREDICTING GLOMERULAR FILTRATION RATE . ESTIMATED GFR I S NOT APPLICABLE FOR DIALYSIS PATIEN TS. 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 ID - LITOOperator ID - LITOOperator ID - LITOOperator ID - LITOOperator ID - LITOOperator ID - LITOOperator ID - LITOOperator ID - LITOOperator ID - LITOOperator ID - LITOCBC W/PLT COUNT & AUTO [id number] 05:39:45 Test Item Value Reference Range Interpretation Comments WHITE BLOOD CELL COUNT (BEAKER) 7.8 K/ L 4.0-10.0 (test code = 775) RED BLOOD CELL COUNT (BEAKER) 2.43 M/ L 4.00-5.00 L (test code = 761) HEMOGLOBIN (BEAKER) (test code = 7.8 GM/DL 12.0-15.5 L 410) HEMATOCRIT (BEAKER) (test code = 23.8 % 36.0-46.0 L 411) MEAN CORPUSCULAR VOLUME (BEAKER) 97.9 fL 82.0-99.0 (test code = 753) MEAN CORPUSCULAR HEMOGLOBIN 32.1 pg 27.0-33.0 (BEAKER) (test code = 751) MEAN CORPUSCULAR HEMOGLOBIN CONC 32.8 GM/DL 32.0-36.0 (BEAKER) (test code = 752) RED CELL DISTRIBUTION WIDTH 14.9 % 12.0-15.0 (BEAKER) (test code = 412) PLATELET COUNT (BEAKER) (test 100 K/CU MM 150-430 L code = 756) MEAN PLATELET VOLUME (BEAKER) 11.4 fL 6.0-11.5 (test code = 754) NUCLEATED RED BLOOD CELLS 3 /100 WBC 0-0 H (BEAKER) (test code = 413) NEUTROPHILS RELATIVE PERCENT 72 % (BEAKER) (test code = 429) LYMPHOCYTES RELATIVE PERCENT 18 % (BEAKER) (test code = 430) MONOCYTES RELATIVE PERCENT 4 % (BEAKER) (test code = 431) EOSINOPHILS RELATIVE PERCENT 0 % (BEAKER) (test code = 432) BASOPHILS RELATIVE PERCENT 0 % (BEAKER) (test code = 437) NEUTROPHILS ABSOLUTE COUNT 5.58 K/ L 1.80-8.00 (BEAKER) (test code = 670) LYMPHOCYTES ABSOLUTE COUNT 1.40 K/ L 1.48-4.50 L (BEAKER) (test code = 414) MONOCYTES ABSOLUTE COUNT (BEAKER) 0.29 K/ L 0.00-1.30 (test code = 415) EOSINOPHILS ABSOLUTE COUNT 0.02 K/ L 0.00-0.50 (BEAKER) (test code = 416) BASOPHILS ABSOLUTE COUNT (BEAKER) 0.02 K/ L 0.00-0.20 (test code = 417) IMMATURE GRANULOCYTES-RELATIVE 6 % 0-0 H PERCENT (BEAKER) (test code = 2801) [id number] 05:35:53 Test Item Value Reference Range Interpretation Comments D-DIMER QUANTITATIVE 3.03 MG/L FEU <0.50 H Final Information (BEAKER) (test code = (Auto Output) 673) REGARDING D-DIMER RESULTS: The 98% NPV (Negative Predictive Value) for DVT/PE exclusion is 0.50 mg/LFEU as suggested by the manager multicultural and as approved by the FDA.POCT-GLUCOSE [id number] 04:52:50 Test Item Value Reference Range Interpretation Comments POC-GLUCOSE METER 242 mg/dL 70-110 H : TESTED A T [facility] [address] (BEAKER) (test code [facility] [address], = 1538) [facility] [address]: 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/Techni unique ID = [id number] for Di Kolb POCT-GLUCOSE [id number] 20:19:15 Test Item Value Reference Range Interpretation Comments POC-GLUCOSE METER 337 mg/dL 70-110 H : Notified RN/MD: TESTED (BANNER) (test code AT [facility] [address] POINT = 1538) [place] [id number]: 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/Techni unique ID = [id number] for Di Kolb POCT-GLUCOSE [id number] 16:27:26 Test Item Value Reference Range Interpretation Comments POC-GLUCOSE METER 257 mg/dL 70-110 H : Notified RN/MD: TESTED (BANNER) (test code AT [facility] [address] POINT = 1538) [place] [id number]: 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/Techni unique ID = [id number] for Ezek iel, Erika POCT-GLUCOSE [id number] 12:39:48 Test Item Value Reference Range Interpretation Comments POC-GLUCOSE METER 187 mg/dL 70-110 H : Notified RN/MD: TESTED (BANNER) (test code AT [address] = 1538) [place] [id number]: 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/Techni unique ID = [id number] for Ezek iel, Erika RAD, CHEST, 1 VIEW, NON [id number] 07:37:00Reason for exam:- >pneumoniaShould this be performed at the bedside?->Yes [facility] : 1950 Sex: FFINAL REPORT Chest AP portable semierect Comparison exam: 06/30/2021 History provided: Pneumonia, COVID positive Heart size magnified by projection. Bilateral airspace disease predominating peripherally and at the bases persists consistent with COVID 19 infection. Signed: Travis Delgadoeport Verified Date/Time: 07/03/2021 07:37:18 Reading Location: [facility] Radiology Reading Room POCT-GLUCOSE [id number] 06:33:31 Test Item Value Reference Range Interpretation Comments POC-GLUCOSE METER 286 mg/dL 70-110 H : TESTED A T [facility] [address] (BEAKER) (test code [address], = 1538) [place] [address]: 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/Techni unique ID = [id number] for Elizabeth Joshua POCT-GLUCOSE [id number] 21:14:22 Test Item Value Reference Range Interpretation Comments POC-GLUCOSE METER 299 mg/dL 70-110 H : TESTED A T [facility] [address] (BEAKER) (test code [address], = 1538) [place] [id number]: 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/Techni unique ID = [id number] for Elizabeth Joshua POCT-GLUCOSE [id number] 15:31:54 Test Item Value Reference Range Interpretation Comments POC-GLUCOSE METER 287 mg/dL 70-110 H : TESTED A T [facility] [address] (BEAKER) (test code [address], = 1538) [place] [address]: 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/Techni unique ID = [id number] for Cerv antes, Crystal POCT-GLUCOSE [id number] 12:06:10 Test Item Value Reference Range Interpretation Comments POC-GLUCOSE METER 259 mg/dL 70-110 H : TESTED A T [facility] [address] (BEAKER) (test code [address], = 1538) [place] [id number]: 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/Techni unique ID = [id number] for Cerv antes, Crystal CT, CHEST WITH IV CONTRAST- PE TEST [id number] 11:13:00Unlisted Reason for Exam - Click Yes and Enter Reason Below->No [facility] : 1950 Sex: FFINAL REPORT CT OF THE CHEST, PULMONARY EMBOLISM PROTOCOL CLINICAL HISTORY: PE suspected, intermediate probability, positive d-dimer COMPARISON FILM: Chest radiograph from06/30/2021 TECHNIQUE: Precontrast axial images at the level of the pulmonary outflow tract are obtained for the purpose of contrast bolus tracking. Postcontrast axial images of the chest are subsequently obtained with optimal pulmonary arterial enhancement. Coronal and sagittal reformats were reviewed. This exam was performed according to our departmental dose-optimization program which includes automated exposure control, adjustment of the mA and/or kV according to patient size and/or use of iterative reconstruction technique. FINDINGS:There is adequate opacification of the pulmonary arteries to level of the segmental arteries. The more distal pulmonary arteries are suboptimally evaluated secondary to respiratory motion and inadequate contrast opacification. The pulmonary arteries distribute normally. The main pulmonary artery is normal in caliber. There is no evidence for filling defect or vessel cut off to suggest pulmonary thromboembolism. 1.3 cm hypodense nodule identified within the rightthyroid lobe. Given small size, no further evaluation is warranted. The remaining visualized structures within the base the neck demonstrate no significant abnormalities. The thoracic aorta is normal co urse and caliber. The heart is not enlarged. No abnormal pericardial fluid is present. There is a small amount of pneumomediastinum present. The trachea and proximal airways are patent. Examination of the lungs demonstrates patchy groundglass and consolidative opacities with a peripheral predominance.There is no evidence for lobar consolidation, pneumothorax, or pleural effusion. Limited views of the upper abdomen demonstrate no significant abnormalities. Cholecystectomy clips are noted within the right upper quadrant. The osseous structures demonstrate no evidence for acute fracture or destructive process. The extrathoracic soft tissues are unremarkable. IMPRESSION: No evidence for pulmonary thromboembolism. Patchy groundglass and consolidative opacities identified bilaterally with a peripheral predominance. Findings are nonspecific but can be seen in setting of a multifocal/viral infectious process. Small amount of pneumomediastinum noted. Signed: Shane Alvarez Verified Date/Time:07/02/2021 11:13:24 Reading Location: [facility] Radiology Reading Room POCT- GLUCOSE [id number] 09:06:02 Test Item Value Reference Range Interpretation Comments POC-GLUCOSE METER 297 mg/dL 70-110 H : TESTED A T [facility] (BEAKER) (test code [address], = 1538) [place] [id number]: 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/Techni unique ID = [id number] for Elizabeth Joshua POCT-GLUCOSE [id number] 21:42:04 Test Item Value Reference Range Interpretation Comments POC-GLUCOSE METER 300 mg/dL 70-110 H : TESTED A T [facility] [address] (BEAKER) (test code [address], = 1538) [place] [id number]: 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/Techni unique ID = [id number] for Elizabeth Joshua POCT-GLUCOSE [id number] 16:47:29 Test Item Value Reference Range Interpretation Comments POC-GLUCOSE METER 179 mg/dL 70-110 H : TESTED A T [facility] [address] (BEAKER) (test code [address], = 1538) [place] [id number]: 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/Techni unique ID = [id number] for AliceAlma hansen VENOUS DOPPLER LEGS, [id number] 12:41:00Reason for exam:->positive d dimerSILVER [facility] : 1950 Sex: FFINAL REPORT INDICATION: Positive d-dimer, Covid positive COMPARISONS: None. BILATERAL LOWER EXTREMITY ULTRASOUND: Limited Covid protocol evaluation, grayscale evaluation with compression imaging was obtained of bilateral common femoral, superficial femoral, popliteal, posterior tibial and peroneal veins. Normal compressibility was demonstrated. No intraluminal thrombus was identified.IMPRESSION: No evidence of lower extremity deep vein thrombosis, bilaterally. Signed: Mekhi Song MDReport Verified Date/Time: 07/01/2021 12:41:57 Reading Location: [address] OrthoConsult Reading Room CBC W/PLT COUNT & AUTO [id number] 12:17:11 Test Item Value Reference Range Interpretation Comments WHITE BLOOD CELL COUNT (BEAKER) 12.2 K/ L 4.0-10.0 H (test code = 775) RED BLOOD CELL COUNT (BEAKER) 2.78 M/ L 4.00-5.00 L (test code = 761) HEMOGLOBIN (BEAKER) (test code = 8.7 GM/DL 12.0-15.5 L 410) HEMATOCRIT (BEAKER) (test code = 27.1 % 36.0-46.0 L 411) MEAN CORPUSCULAR VOLUME (BEAKER) 97.5 fL 82.0-99.0 (test code = 753) MEAN CORPUSCULAR HEMOGLOBIN 31.3 pg 27.0-33.0 (BEAKER) (test code = 751) MEAN CORPUSCULAR HEMOGLOBIN CONC 32.1 GM/DL 32.0-36.0 (BEAKER) (test code = 752) RED CELL DISTRIBUTION WIDTH 13.9 % 12.0-15.0 (BEAKER) (test code = 412) PLATELET COUNT (BEAKER) (test 131 K/CU MM 150-430 L code = 756) MEAN PLATELET VOLUME (BEAKER) 11.4 fL 6.0-11.5 (test code = 754) NUCLEATED RED BLOOD CELLS 8 /100 WBC 0-0 H (BEAKER) (test code = 413) (MANUAL DIFFERENTIAL)2021-07-01 12:17:11 Test Item Value Reference Range Interpretation Comments NEUTROPHILS - REL (DIFF) (BEAKER) 84 % (test code = 1359) LYMPHOCYTES - REL (DIFF) (BEAKER) 7 % (test code = 1360) MONOCYTES - REL (DIFF) (BEAKER) 5 % (test code = 1361) MYELOCYTES-REL (DIFF) (BEAKER) 2 % 0-0 H (test code = 1594) BANDS - REL (DIFF) (BEAKER) (test 2 % 0-10 code = 1348) NEUTROPHILS - ABS (DIFF) (BEAKER) 10.25 K/ L 1.80-8.00 H (test code = 1365) LYMPHOCYTES - ABS (DIFF) (BEAKER) 0.85 K/ L 1.48-4.50 L (test code = 1366) MONOCYTES - ABS (DIFF) (BEAKER) 0.61 K/ L 0.00-1.30 (test code = 1367) BANDS-ABS (DIFF) (BEAKER) (test 0.2 K/ L 0.0-0.8 code = 1349) MYELOCYTES-ABS (DIFF) (BEAKER) 0.24 K/ L 0.00-0.00 H (test code = 1593) TOTAL COUNTED (BEAKER) (test code 100 = 1351) BANDS + SEGMENTED NEUTROPHILS 10.49 (BEAKER) (test code = 1352) MANUAL NRBC PER 100 CELLS (BEAKER) 9 /100 WBC 0-0 H (test code = 1353) WBC MORPHOLOGY (BEAKER) (test code Normal = 487) PLT MORPHOLOGY (BEAKER) (test code Normal = 486) RBC MORPHOLOGY (BEAKER) (test code Normal = 762) POCT-GLUCOSE [id number] 11:55:02 Test Item Value Reference Range Interpretation Comments POC-GLUCOSE METER 300 mg/dL 70-110 H : TESTED A T [facility] 1317 (BEAKER) (test code [facility] [address], = 1538) [facility] [address] 478: 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/Techni unique ID = [id number] for Dino amaroAlma COMPREHENSIVE METABOLIC [id number] 10:34:18 Test Item Value Reference Range Interpretation Comments TOTAL PROTEIN 5.1 gm/dL 6.0-8.5 L (BEAKER) (test code = 770) ALBUMIN (BEAKER) 2.7 g/dL 3.5-5.0 L (test code = 1145) ALKALINE PHOSPHATASE 47 U/L 30-115 (BEAKER) (test code = 346) BILIRUBIN TOTAL 0.5 mg/dL 0.1-1.2 (BEAKER) (test code = 377) SODIUM (BEAKER) (test 140 meq/L 135-148 code = 381) POTASSIUM (BEAKER) 3.8 meq/L 3.6-5.5 (test code = 379) CHLORIDE (BEAKER) 111 meq/L 98-106 H (test code = 382) CO2 (BEAKER) (test 18 meq/L 20-29 L code = 355) BLOOD UREA NITROGEN 32 mg/dL 10-26 H (BEAKER) (test code = 354) CREATININE (BEAKER) 0.85 mg/dL 0.50-1.20 (test code = 358) GLUCOSE RANDOM 354 mg/dL 70-110 H (BEAKER) (test code = 652) CALCIUM (BEAKER) 8.7 mg/dL 8.5-10.5 (test code = 697) AST (SGOT) (BEAKER) 18 U/L 5-40 (test code = 353) ALT (SGPT) (BEAKER) 49 U/L 5-50 (test code = 347) EGFR (BEAKER) (test 80 mL/min/1.73 ESTIMA ARNOLD GFR IS code = 1092) sq m NOT ACCURATE CREATININE CLEARANCE IN PREDICTING GLOMERULAR FILTRATION RATE . ESTIMATED GFR I S NOT APPLICABLE FOR DIALYSIS PATIEN TS. 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 ID - [id number] ID - [id number] ID - [id number] ID - [id number] ID - [id number] ID - [id number] ID - dslf90Sjcbcpnj ID - ufqg79Wqjlqwsm ID - [id number] ID - [id number] ID - [id number] ID - [id number] ID - [id number] ID - [id number] ID - [id number] ID - [id number] ID - [id number] ID - [id number] ID - [id number] [id number] 10:26:23 Test Item Value Reference Range Interpretation Comments C-REACTIVE PROTEIN (BEAKER) (test 0.89 mg/dL 0.00-0.50 H code = 676) 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 ID - [id number] 10:24:05 Test Item Value Reference Range Interpretation Comments D-DIMER QUANTITATIVE 3.37 MG/L FEU <0.50 H Final Information (BANNER) (test code = (Auto Output) 671) REGARDING D-DIMER RESULTS: The 98% NPV (Negative Predictive Value) for DVT/PE exclusion is 0.50 mg/LFEU as suggested by the manager multicultural and as approved by the FDA.POCT-GLUCOSE [id number] 06:44:39 Test Item Value Reference Range Interpretation Comments POC-GLUCOSE METER 275 mg/dL 70-110 H : [facility]NER[facility] (test code [facility], = 1538) [place] [address]: 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/Techni unique ID = [id number] for Mariam Joshuaen POCT-GLUCOSE [id number] 21:22:38 Test Item Value Reference Range Interpretation Comments POC-GLUCOSE METER 425 mg/dL 70-110 HH : Notified RN/MD: TESTED (BANNER) (test code AT [place] [address] [place] [address] = 1538) [place] [address]: 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/Techni unique ID = [id number] for Tammie nHelioElizabeth POCT-GLUCOSE [id number] 16:28:18 Test Item Value Reference Range Interpretation Comments POC-GLUCOSE METER 432 mg/dL 70-110 HH : Notified RN/MD: TESTED (BANNER) (test code AT [address] POINT = 1538) [place] [address]: 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/Techni unique ID = [id number] for Agata blum Ayinor POCT-GLUCOSE [id number] 11:49:50 Test Item Value Reference Range Interpretation Comments POC-GLUCOSE METER 376 mg/dL 70-110 H : TESTED A T [facility] 1317 (BANNER) (test code [facility], = 1538) [place] [address]: 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/Techni unique ID = [id number] for Molw ani Alma RAD, CHEST, 1 VIEW, NON [id number] 09:25:00Reason for exam:- >pneumoniaShould this be performed at the bedside?->Yes [facility] : 1950 Sex: FFINAL REPORT RAD, CHEST, 1 VIEW, NON DEPT INDICATION: pneumonia COMPARISON: 06/29/2021 FINDINGS: Portable frontal view of the chest. IMPRESSION: Support Lines: None Lungsand pleura: Unchanged bibasilar airspace disease No significant pneumothorax. Heart and mediastinum:Stable contours. Additional findings: None. Signed: Leisa Tapia Verified Date/Time: 06/30/2021 09:25:48 Reading Location: [address] Neuro Reading Room -GLUCOSE [id number] 06:32:32 Test Item Value Reference Range Interpretation Comments POC-GLUCOSE METER 327 mg/dL 70-110 H : Notified RN/MD: TESTED (VIKRAM) (test code AT [address] = 1538) [facility] [address]: 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/Techni unique ID = [id number] for Jeet Estesisha COMPREHENSIVE METABOLIC [id number] 05:27:30 Test Item Value Reference Range Interpretation Comments TOTAL PROTEIN 4.5 gm/dL 6.0-8.5 L (BEAKER) (test code = 770) ALBUMIN (BEAKER) 2.5 g/dL 3.5-5.0 L (test code = 1145) ALKALINE PHOSPHATASE 39 U/L 30-115 (BEAKER) (test code = 346) BILIRUBIN TOTAL 0.4 mg/dL 0.1-1.2 (BEAKER) (test code = 377) SODIUM (BEAKER) (test 143 meq/L 135-148 code = 381) POTASSIUM (BEAKER) 4.0 meq/L 3.6-5.5 (test code = 379) CHLORIDE (BEAKER) 112 meq/L 98-106 H (test code = 382) CO2 (BEAKER) (test 19 meq/L 20-29 L code = 355) BLOOD UREA NITROGEN 43 mg/dL 10-26 H (BEAKER) (test code = 354) CREATININE (BEAKER) 1.16 mg/dL 0.50-1.20 (test code = 358) GLUCOSE RANDOM 345 mg/dL 70-110 H (BEAKER) (test code = 652) CALCIUM (BEAKER) 8.1 mg/dL 8.5-10.5 L (test code = 697) AST (SGOT) (BEAKER) 23 U/L 5-40 (test code = 353) ALT (SGPT) (BEAKER) 50 U/L 5-50 (test code = 347) EGFR (BEAKER) (test 56 mL/min/1.73 ESTIMA ARNOLD GFR IS code = 1092) sq m NOT ACCURATE CREATININE CLEARANCE IN PREDICTING GLOMERULAR FILTRATION RATE . ESTIMATED GFR I S NOT APPLICABLE FOR DIALYSIS PATIEN TS. 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 ID - [id number] ID - [id number] ID - [id number] ID - [id number] ID - [id number] ID - [id number] ID - [id number] ID - [id number] ID - [id number] ID - [id number] FUNCTION [id number] 05:27:10 Test Item Value Reference Range Interpretation Comments TOTAL PROTEIN (BEAKER) (test code = 4.5 gm/dL 6.0-8.5 L 770) ALBUMIN (BEAKER) (test code = 1145) 2.5 g/dL 3.5-5.0 L BILIRUBIN TOTAL (BEAKER) (test code 0.4 mg/dL 0.1-1.2 = 377) BILIRUBIN DIRECT (BEAKER) (test 0.2 mg/dL 0.0-0.4 code = 706) ALKALINE PHOSPHATASE (BEAKER) (test 39 U/L 30-115 code = 346) AST (SGOT) (BEAKER) (test code = 23 U/L 5-40 353) ALT (SGPT) (BEAKER) (test code = 50 U/L 5-50 347) 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 ID - [id number] ID - [id number] ID - [id number] ID - [id number] ID - [id number] ID - [id number] ID - [id number] PANEL 2021-06-30 05:27:05 Test Item Value Reference Range Interpretation Comments TRIGLYCERIDES (BEAKER) (test code = 172 mg/dL 540) CHOLESTEROL (BEAKER) (test code = 157 mg/dL 631) HDL CHOLESTEROL (BEAKER) (test code 27 mg/dL = 976) LDL CHOLESTEROL CALCULATED (BEAKER) 96 mg/dL (test code = 633) Triglyceride Reference Range: Low Risk <150 Borderline 150-199 High Risk 200-499 Very High Risk >=500Cholesterol Reference Range: Low Risk <200 Borderline 200-239 High Risk >240HDL Cholesterol Reference Range: Low Risk >=60 High Risk <40LDL Cholesterol Reference Range: Optimal <100 Near Optimal 100-129 Borderline 130-159 High 160-189 Very High >=190 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 ID - [id number] ID - [id number] ID - [id number] 2021-06-30 05:26:48 Test Item Value Reference Range Interpretation Comments MAGNESIUM (BEAKER) (test code = 2.2 mg/dL 1.5-3.0 627) 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 ID - [id number] ID - [id number] ID - [id number] ID - [id number] PROTHROMBIN [id number] 05:10:20 Test Item Value Reference Range Interpretation Comments PROTIME (BEAKER) 11.0 seconds 9.3-12.0 Final Infor mation (test code = 759) (Auto Outp ut) INR (BEAKER) (test 0.99 See_Comment Final Inf ormation code = 370) (Auto Output) [Automated mess age] The system REAL SAMURAI generated this result transmitted ref erence range: <=5.90. The reference range was not used to int erpret this result as normal/abnormal . RECOMMENDED COUMADIN/WARFARIN INR THERAPY RANGESSTANDARD DOSE: 2.0 - 3.0 Includes: PROPHYLAXIS forvenous thrombosis, systemic embolization; TREATMENT for venous thrombosis and/or pulmonary embolus.HIGH RISK: Target INR is 2.5-3.5 for patients with mechanical heart valves.CBC W/PLT COUNT & AUTO DIFFERENTIAL 2021-06-30 04:55:57 Test Item Value Reference Range Interpretation Comments WHITE BLOOD CELL COUNT (BEAKER) 9.6 K/ L 4.0-10.0 (test code = 775) RED BLOOD CELL COUNT (BEAKER) 2.62 M/ L 4.00-5.00 L (test code = 761) HEMOGLOBIN (BEAKER) (test code = 8.1 GM/DL 12.0-15.5 L 410) HEMATOCRIT (BEAKER) (test code = 27.0 % 36.0-46.0 L 411) MEAN CORPUSCULAR VOLUME (BEAKER) 103.1 fL 82.0-99.0 H (test code = 753) MEAN CORPUSCULAR HEMOGLOBIN 30.9 pg 27.0-33.0 (BEAKER) (test code = 751) MEAN CORPUSCULAR HEMOGLOBIN CONC 30.0 GM/DL 32.0-36.0 L (BEAKER) (test code = 752) RED CELL DISTRIBUTION WIDTH 14.0 % 12.0-15.0 (BEAKER) (test code = 412) PLATELET COUNT (BEAKER) (test 126 K/CU MM 150-430 L code = 756) MEAN PLATELET VOLUME (BEAKER) 11.7 fL 6.0-11.5 H (test code = 754) NUCLEATED RED BLOOD CELLS 2 /100 WBC 0-0 H (BEAKER) (test code = 413) NEUTROPHILS RELATIVE PERCENT 78 % (BEAKER) (test code = 429) LYMPHOCYTES RELATIVE PERCENT 11 % (BEAKER) (test code = 430) MONOCYTES RELATIVE PERCENT 4 % (BEAKER) (test code = 431) EOSINOPHILS RELATIVE PERCENT 0 % (BEAKER) (test code = 432) BASOPHILS RELATIVE PERCENT 0 % (BEAKER) (test code = 437) NEUTROPHILS ABSOLUTE COUNT 7.52 K/ L 1.80-8.00 (BEAKER) (test code = 670) LYMPHOCYTES ABSOLUTE COUNT 1.02 K/ L 1.48-4.50 L (BEAKER) (test code = 414) MONOCYTES ABSOLUTE COUNT (BEAKER) 0.40 K/ L 0.00-1.30 (test code = 415) EOSINOPHILS ABSOLUTE COUNT 0.00 K/ L 0.00-0.50 (BEAKER) (test code = 416) BASOPHILS ABSOLUTE COUNT (BEAKER) 0.02 K/ L 0.00-0.20 (test code = 417) IMMATURE GRANULOCYTES-RELATIVE 7 % 0-0 H PERCENT (BEAKER) (test code = 2801) POCT-GLUCOSE [id number] 19:32:11 Test Item Value Reference Range Interpretation Comments POC-GLUCOSE METER 296 mg/dL 70-110 H : Notified RN/MD: TESTED (BEAKER) (test code AT [facility] [address] = 1538) [place], [facility] [place] [address]: 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/Techni unique ID = [id number] for Asya Estes OSMOLALITY, [id number] 16:45:57 Test Item Value Reference Range Interpretation Comments OSMOLALITY URINE 785 mOsm/kg See_Comment [Automated message] (BANNER) (test code = The sy stem which 614) generated this result transmitted ref erence range: 50-1,200 mOsm/kg. The reference range was not used to int erpret this result as normal/abnormal . POCT-GLUCOSE [id number] 16:11:12 Test Item Value Reference Range Interpretation Comments POC-GLUCOSE METER 262 mg/dL 70-110 H : TESTED A T [facility] [address] (BEAKER) (test code [address], = 1538) [facility] [address] [address]: 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/Techni unique ID = [id number] for Kyra Vargas C-REACTIVE [id number] 12:51:06 Test Item Value Reference Range Interpretation Comments C-REACTIVE PROTEIN (BEAKER) (test 1.05 mg/dL 0.00-0.50 H code = 676) 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 ID - [id number]-[id number] 12:46:27 Test Item Value Reference Range Interpretation Comments D-DIMER QUANTITATIVE 0.40 MG/L FEU <0.50 Final Information (BANNER) (test code = (Auto Output) 671) REGARDING D-DIMER RESULTS: The 98% NPV (Negative Predictive Value) for DVT/PE exclusion is 0.50 mg/LFEU as suggested by the manager multicultural and as approved by the FDA.POCT-GLUCOSE [id number] 11:18:02 Test Item Value Reference Range Interpretation Comments POC-GLUCOSE METER 280 mg/dL 70-110 H : TESTED A T [facility] 1317 (BEAKER) (test code [address], = 1538) [facility] [address] [address]: 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/Techni unique ID = [id number] for Kyra Vargas RAD, CHEST, 1 VIEW, NON [id number] 10:20:00Reason for exam:->COVID PneumoniaShould this be performed at the bedside?->Yes [facility] : 1950 Sex: FFINAL REPORT TECHNIQUE: Frontal view of the chest. INDICATION: COVID Pneumonia COMPARISON:None DISCUSSION:Limited evaluation due to portable technique. Lines and hardware: Overlying EKG leads are notedHeart and mediastinum: Within normal limitsLungs and pleura: Peripheral ill-defined interstitial airspace opacities are noted with a perihilar and lower lobe predominance. Nolarge effusion or pneumothorax.Soft tissues and bones: No acute abnormality. IMPRESSION:Bilateral peripheral predominant airspace disease consistent with provided history of Covid-19 pneumonia. Signed:Baljeet Vo Verified Date/Time: 06/29/2021 10:20:49 Reading Location: [facility] Radiology Reading Room URINALYSIS W/ [id number] 10:08:29 Test Item Value Reference Range Interpretation Comments COLOR (BEAKER) (test code = 470) Yellow CLARITY (BEAKER) (test code = 469) Clear SPECIFIC GRAVITY UA (BEAKER) (test > 1.001-1.035 code = 468) PH UA (BEAKER) (test code = 467) 5.0 5.0-8.0 PROTEIN UA (BEAKER) (test code = Trace Negative A 464) GLUCOSE UA (BEAKER) (test code = Negative Negative 365) KETONES UA (BEAKER) (test code = Trace Negative A 371) BILIRUBIN UA (BEAKER) (test code = Negative Negative 462) BLOOD UA (BEAKER) (test code = Moderate Negative A 461) NITRITE UA (BEAKER) (test code = Negative Negative 465) LEUKOCYTE ESTERASE UA (BEAKER) Small Negative A (test code = 466) UROBILINOGEN UA (BEAKER) (test 0.2 mg/dL 0.2-1.0 code = 463) BACTERIA (BEAKER) (test code = Occasional 517) YEAST (BEAKER) (test code = 1585) Moderate RBC UA-MANUAL (BEAKER) (test code <5 /HPF = 1659) WBC UA-MANUAL (BEAKER) (test code 10-20 /HPF = 1661) SQUAMOUS EPITHELIAL MANUAL 5-10 /HPF (BEAKER) (test code = 1663) SOURCE(BEAKER) (test code = 2795) PROTEIN, RANDOM [id number] 09:23:05 Test Item Value Reference Range Interpretation Comments PROTEIN, URINE (BEAKER) (test code = 45 mg/dL 0-14 H 1569) 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 ID - DSENSONCREATININE, RANDOM [id number] 09:22:49 Test Item Value Reference Range Interpretation Comments CREATININE URINE (BEAKER) (test 145.7 mg/dL code = 375) Reference Range: No NormalsOperator ID - DSENSONSODIUM, RANDOM [id number] 09:18:51 Test Item Value Reference Range Interpretation Comments SODIUM URINE (BEAKER) (test code = 35 meq/L 243) Reference Range: No NormalsOperator ID - DSENSONPOTASSIUM, RANDOM URINE 2021-06-29 09:15:34 Test Item Value Reference Range Interpretation Comments POTASSIUM URINE (BEAKER) (test 75.5 meq/L code = 195) Reference Range: No NormalsOperator ID - DSENSONBASIC METABOLIC [id number] 08:55:08 Test Item Value Reference Range Interpretation Comments SODIUM (BEAKER) 146 meq/L 135-148 (test code = 381) POTASSIUM (BEAKER) 4.4 meq/L 3.6-5.5 Specimen slightly (test code = 379) hemolyzed CHLORIDE (BEAKER) 114 meq/L 98-106 H (test code = 382) CO2 (BEAKER) (test 21 meq/L 20-29 code = 355) BLOOD UREA NITROGEN 45 mg/dL 10-26 H (BEAKER) (test code = 354) CREATININE (BEAKER) 1.11 mg/dL 0.50-1.20 Specimen slightly (test code = 358) hemolyzed GLUCOSE RANDOM 194 mg/dL 70-110 H (BEAKER) (test code = 652) CALCIUM (BEAKER) 8.8 mg/dL 8.5-10.5 (test code = 697) EGFR (BEAKER) (test 59 mL/min/1.73 ESTIMA ARNOLD GFR IS code = 1092) sq m NOT ACCURATE CREATININE CLEARANCE IN PREDICTING GLOMERULAR FILTRATION RATE . ESTIMATED GFR I S NOT APPLICABLE FOR DIALYSIS PATIEN TS. 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 ID - DSENSONOperator ID - DSENSONOperator ID - DSENSONOperator ID - DSENSONOperator ID - DSENSONOperator ID - DSENSONOperator ID - DSENSONOperator ID - DSENSONOperator ID - DSENSONOperator ID - DSENSONOperator ID - DSENSONOperator ID - DSENSONOperator ID - DSENSONOperator ID - DSENSONOperatorID - DSENSONOperator ID - DSENSONOperator ID - DSENSONOperator ID - DSENSONOperator ID - DSENSONOperator ID - DSENSONLIPID [id number] 05:02:00 Test Item Value Reference Range Interpretation Comments TRIGLYCERIDES (BEAKER) 174 mg/dL Speci men slightly (test code = 540) hemolyzed CHOLESTEROL (BEAKER) 164 mg/dL Specime n slightly (test code = 631) hemolyzed HDL CHOLESTEROL (BEAKER) 32 mg/dL (test code = 976) LDL CHOLESTEROL 97 mg/dL CALCULATED (BEAKER) (test code = 633) Triglyceride Reference Range: Low Risk <150 Borderline 150-199 High Risk 200-499 Very High Risk >=500Cholesterol Reference Range: Low Risk <200 Borderline 200-239 High Risk >240HDL Cholesterol Reference Range: Low Risk >=60 High Risk <40LDL Cholesterol Reference Range: Optimal <100 Near Optimal 100-129 Borderline 130-159 High 160-189 Very High >=190 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 ID - LITOOperator ID - LITOOperator ID - LITOOperator ID - LITOOperator ID - LITOOperator ID - LITOHEPATIC FUNCTION [id number] 04:37:26 Test Item Value Reference Range Interpretation Comments TOTAL PROTEIN (BEAKER) 5.0 gm/dL 6.0-8.5 L Speci men slightly (test code = 770) hemolyzed ALBUMIN (BEAKER) (test 2.6 g/dL 3.5-5.0 L Speci men slightly code = 1145) hemolyzed BILIRUBIN TOTAL 0.7 mg/dL 0.1-1.2 Specimen sli ghtly (BEAKER) (test code = hemoly zed 377) BILIRUBIN DIRECT 0.3 mg/dL 0.0-0.4 Specimen sl ightly (BEAKER) (test code = hemoly zed 706) ALKALINE PHOSPHATASE 42 U/L 30-115 (BEAKER) (test code = 346) AST (SGOT) (BEAKER) 26 U/L 5-40 Specimen slightly (test code = 353) hemolyzed ALT (SGPT) (BEAKER) 50 U/L 5-50 Specimen slightly (test code = 347) hemolyzed 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 ID - LITOOperator ID - LITOOperator ID - LITOOperator ID - LITOOperator ID - LITOOperator ID - LITOOperator ID - LITOPROTHROMBIN TIME/[id number] 04:23:54 Test Item Value Reference Range Interpretation Comments PROTIME (BEAKER) 11.4 seconds 9.3-12.0 Final Infor mation (test code = 759) (Auto Outp ut) INR (BEAKER) (test 1.03 See_Comment Final Inf ormation code = 370) (Auto Output) [Automated mess age] The system REAL SAMURAI generated this result transmitted ref erence range: <=5.90. The reference range was not used to int erpret this result as normal/abnormal . RECOMMENDED COUMADIN/WARFARIN INR THERAPY RANGESSTANDARD DOSE: 2.0 - 3.0 Includes: PROPHYLAXIS forvenous thrombosis, systemic embolization; TREATMENT for venous thrombosis and/or pulmonary embolus.HIGH RISK: Target INR is 2.5-3.5 for patients with mechanical heart valves.CBC W/PLT COUNT & AUTO DIFFERENTIAL 2021-06-29 04:09:57 Test Item Value Reference Range Interpretation Comments WHITE BLOOD CELL COUNT (BEAKER) 11.2 K/ L 4.0-10.0 H (test code = 775) RED BLOOD CELL COUNT (BEAKER) 3.09 M/ L 4.00-5.00 L (test code = 761) HEMOGLOBIN (BEAKER) (test code = 9.9 GM/DL 12.0-15.5 L 410) HEMATOCRIT (BEAKER) (test code = 30.2 % 36.0-46.0 L 411) MEAN CORPUSCULAR VOLUME (BEAKER) 97.7 fL 82.0-99.0 (test code = 753) MEAN CORPUSCULAR HEMOGLOBIN 32.0 pg 27.0-33.0 (BEAKER) (test code = 751) MEAN CORPUSCULAR HEMOGLOBIN CONC 32.8 GM/DL 32.0-36.0 (BEAKER) (test code = 752) RED CELL DISTRIBUTION WIDTH 13.6 % 12.0-15.0 (BEAKER) (test code = 412) PLATELET COUNT (BEAKER) (test 123 K/CU MM 150-430 L code = 756) MEAN PLATELET VOLUME (BEAKER) 11.4 fL 6.0-11.5 (test code = 754) NUCLEATED RED BLOOD CELLS 0 /100 WBC 0-0 (BEAKER) (test code = 413) NEUTROPHILS RELATIVE PERCENT 82 % (BEAKER) (test code = 429) LYMPHOCYTES RELATIVE PERCENT 8 % (BEAKER) (test code = 430) MONOCYTES RELATIVE PERCENT 3 % (BEAKER) (test code = 431) EOSINOPHILS RELATIVE PERCENT 0 % (BEAKER) (test code = 432) BASOPHILS RELATIVE PERCENT 0 % (BEAKER) (test code = 437) NEUTROPHILS ABSOLUTE COUNT 9.22 K/ L 1.80-8.00 H (BEAKER) (test code = 670) LYMPHOCYTES ABSOLUTE COUNT 0.88 K/ L 1.48-4.50 L (BEAKER) (test code = 414) MONOCYTES ABSOLUTE COUNT (BEAKER) 0.31 K/ L 0.00-1.30 (test code = 415) EOSINOPHILS ABSOLUTE COUNT 0.03 K/ L 0.00-0.50 (BEAKER) (test code = 416) BASOPHILS ABSOLUTE COUNT (BEAKER) 0.02 K/ L 0.00-0.20 (test code = 417) IMMATURE GRANULOCYTES-RELATIVE 6 % 0-0 H PERCENT (BEAKER) (test code = 2801)
[2021-08-25] MEDS ORDERED: METOPROLOL TAR 25 MG TAB PO SCH (22:29)
[2021-08-26] MEDS: METOPROLOL TAR 25 MG TAB PO SCH ×2 (05:15→17:10)
--- NOTE | 2021-08-26 05:49 | P.PN ---
Date of Service: 08/26/21 Subjective: No acute events overnight Patient states she and her family discussed options, wants to proceed with PEG tube placement Nursing also confirms he spoke with family Patient otherwise without any new complaints. No difficulty swallowing liquids ROS: 10 point ROS as noted above, otherwise negative Physical exam GEN: Alert, orientedx3, NAD HEENT: Normal conjunctiva, sclera anicteric CV: irregular rhythm, HR: 90s-105, no edema Pulm: Nonlabored respiration on room air ABD: Soft, nontender, nondistended MSK: No joint tenderness Integumentary: small superficial skin breakdown on buttocks, superficial decubitus ulcer on sacrum Neuro: Normal speech, normal affect, moves all extremities, significant weakness in lower extremities Problem List Dysphagia of solid food Fever, urinary tract infection with candidiasis Acute kidney injury, prerenal, resolved Tachyarrhythmia Normocytic anemia, anemia of chronic disease Hypertension Osteoarthritis debility after prolonged hospitalization with Covid complicated with GI bleed Dysphagia: Neurology consulted, 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 In the meantime, patient will not be able to obtain adequate nutrition with a liquid diet Recommend PEG tube Discussed with patient and daughter, want to proceed with PEG tube placement Fever, urinary tract infection with candidiasis: Patient with recent hospitalization for similar, urine culture and blood cultures were negative at that time. Continue with cefepime, infectious disease consulted. Urine culture pending suspect yeast in urine is colonization Acute kidney injury: Resolved with IV fluids, suspect prerenal Tachyarrhythmia: Patient with paroxysmal tachyarrhythmia, appears to be sinus tachycardia with PACs we will monitor on telemetry, possible atrial fibrillation. Started metoprolol on admission Normocytic anemia, anemia of chronic disease: Transfuse to maintain hemoglobin greater than 7. Stable Osteoarthritis: hold off on any NSAIDs given acute kidney injury. Medical debility after prolonged hospitalization with Covid complicated with GI bleed: Physical therapy consulted, patient family reports that she is currently residing at home with her daughter, currently bedbound but able to sit up on the edge of the bed, making improvement with physical therapy, family wishes for more/more aggressive physical therapy if possible. VTE: Heparin Code status: Full Dispo: Possible SNF, will discuss further with family. She has refused in the past Patient/family have decided today to proceed with PEG. Will send message to GI glass ribbon machine operator tomorrow regarding decision Time Spent Managing Pts Care (In Minutes): 35
[2021-08-26 06:05] LABS: Absolute Lymphocytes (CBC) 1.7 K/uL (0.7-4.9); Basophils % 0.8 % (0-1.3); Lymphocytes % 22.8 % (15.3-44.8); RBC Red Blood Cell Count 2.76 M/uL (3.86-4.86)
[2021-08-26 06:20] LABS: ALT/SGPT 22 U/L (12-78); AST/SGOT 31 U/L (15-37); Albumin 1.4 g/dL (3.4-5.0); Alkaline Phosphatase 73 U/L (45-117); BUN Blood Urea Nitrogen 9 mg/dL (7-18); Bicarbonate 23 mmol/L (21-32); Bilirubin Total 0.3 mg/dL (0.2-1.0); Glucose Level 80 mg/dL (74-106); Magnesium 1.6 mg/dL (1.8-2.4); Potassium 3.6 mmol/L (3.5-5.1); Protein, Total 4.9 g/dL (6.4-8.2); Sodium Level 145 mmol/L (136-145)
[2021-08-26] MEDS ORDERED: MAGNESIUM SULFATE 1 gm IVPB 1 GM/100 ML BAG IV ONE (09:00)
[2021-08-26] MEDS ORDERED: POTASSIUM CL SA 10 MEQ TAB PO ONE (09:00)
[2021-08-26] MEDS: JUVEN PACKET PO SCH ×3 (09:07→21:00)
[2021-08-26] MEDS: HEPARIN 5000 UNIT/ML 1 ML VIAL SQ SCH ×2 (09:07→20:27)
[2021-08-26] MEDS: ENSURE ENLIVE 237 ML CAN PO SCH ×3 (09:07→21:00)
[2021-08-26] MEDS: CEFEPIME 1 GM/100 ML BAG IV SCH (17:09)
[2021-08-27] MEDS: METOPROLOL TAR 25 MG TAB PO SCH ×2 (05:17→17:03)
[2021-08-27 05:51] LABS: Absolute Lymphocytes (CBC) 2.2 K/uL (0.7-4.9); Basophils % 0.6 % (0-1.3); Hematocrit 26.1 % (36.0-45.0); Lymphocytes % 28.4 % (15.3-44.8); MPV 7.8 fL (7.6-11.3); RBC Red Blood Cell Count 2.69 M/uL (3.86-4.86)
--- NOTE | 2021-08-27 05:55 | P.PN ---
Date of Service: 08/27/21 Subjective: Doing well, no new complaints Swallowing liquids without issue yesterday. Scheduled for PEG tube placement today ROS: 10 point ROS as noted above, otherwise negative Physical exam GEN: Alert, NAD HEENT: Normal conjunctiva, sclera anicteric CV: regular rhythm, HR: 90s, no edema Pulm: Nonlabored respirations on room air ABD: Soft, nontender, nondistended MSK: No joint tenderness Integumentary: small superficial skin breakdown on buttocks, superficial decubitus ulcer on sacrum Neuro: Normal speech, normal affect, moves all extremities with significant weakness in lower extremities Problem List Dysphagia of solid food Fever, urinary tract infection with candidiasis Acute kidney injury, prerenal, resolved Tachyarrhythmia Normocytic anemia, anemia of chronic disease Hypertension Osteoarthritis debility after prolonged hospitalization with Covid complicated with GI bleed Dysphagia: Neurology consulted, 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 In the meantime, patient will not be able to obtain adequate nutrition with a liquid diet For these reasons, neuro recommended PEG tube Discussed with patient and daughter, want to proceed with PEG tube placement scheduled for today Fever, urinary tract infection with candidiasis: Patient with recent hospitalization for similar, urine culture and blood cultures were negative at that time. Continue with cefepime, infectious disease consulted. Urine culture: Mixed capri suspect yeast in urine is colonization Acute kidney injury: Resolved with IV fluids, suspect prerenal/hypovolemia Tachyarrhythmia: Patient with paroxysmal tachyarrhythmia, appears to be sinus tachycardia with PACs. Continue to monitor on telemetry, possible atrial fibrillation. Started metoprolol on admission Normocytic anemia, anemia of chronic disease: Transfuse to maintain hemoglobin greater than 7. Stable Osteoarthritis: hold off on any NSAIDs given acute kidney injury. Medical debility after prolonged hospitalization with Covid complicated with GI bleed: Physical therapy consulted, patient family reports that she is currently residing at home with her daughter, currently bedbound but able to sit up on the edge of the bed, making improvement with physical therapy, family wishes for more/more aggressive physical therapy if possible. VTE: Heparin Code status: Full Dispo: Possible SNF, will discuss further with family. She has refused in the past Time Spent Managing Pts Care (In Minutes): 35
[2021-08-27 06:07] LABS: ALT/SGPT 21 U/L (12-78); AST/SGOT 39 U/L (15-37); Albumin 1.3 g/dL (3.4-5.0); Alkaline Phosphatase 78 U/L (45-117); BUN Blood Urea Nitrogen 8 mg/dL (7-18); Bicarbonate 23 mmol/L (21-32); Bilirubin Total 0.3 mg/dL (0.2-1.0); Glucose Level 95 mg/dL (74-106); Magnesium 1.7 mg/dL (1.8-2.4); Potassium 3.9 mmol/L (3.5-5.1); Sodium Level 145 mmol/L (136-145)
[2021-08-27 07:06] LABS: Blood Morphology Comment NOT SEEN (NOT SEEN); Platelet Estimate ADEQ; White Blood Cell Scan OK (OK)
[2021-08-27] MEDS: ENSURE ENLIVE 237 ML CAN PO SCH (09:00)
[2021-08-27] MEDS: JUVEN PACKET PO SCH (09:00)
[2021-08-27] MEDS ORDERED: MAGNESIUM SULFATE 1 gm IVPB 1 GM/100 ML BAG IV ONE (09:00)
[2021-08-27] MEDS: HEPARIN 5000 UNIT/ML 1 ML VIAL SQ SCH ×2 (09:00→20:20)
[2021-08-27] MEDS ORDERED: POTASSIUM CL SA 10 MEQ TAB PO ONE (09:00)
--- NOTE | 2021-08-27 09:35 | P.PN ---
Subjective Date of Service: 08/27/21 Primary Care Provider: Dr. Taylor Chief Complaint: Dysphagia Patient seen and examined at bedside, no acute complaints. Review of Systems 10-point ROS is otherwise unremarkable Physical Examination - Vital Signs Temperature: 98.4 F Blood Pressure: 120/67 Pulse: 102 Respirations: 18 Pulse Ox (%): 97 - Studies Laboratory Last Values WBC 9.60 K/uL (4.3-10.9) 08/22/21 17:00 RBC 3.06 M/uL (3.86-4.86) L 08/22/21 17:00 Hgb 9.8 g/dL (12.0-15.0) L 08/22/21 17:00 Hct 29.4 % (36.0-45.0) L 08/22/21 17:00 MCV 96.0 fL (80-100) 08/22/21 17:00 MCH 32.1 pg (27.0-35.0) 08/22/21 17:00 MCHC 33.5 g/dL (32.0-36.0) 08/22/21 17:00 RDW 18.0 % (12.1-15.2) H 08/22/21 17:00 Plt Count 185 K/uL (152-406) 08/22/21 17:00 MPV 8.3 fL (7.6-11.3) 08/22/21 17:00 Neutrophils % 69.5 % (41.7-73.7) 08/22/21 17:00 Lymphocytes % 20.1 % (15.3-44.8) 08/22/21 17:00 Monocytes % 9.5 % (3.3-12.3) 08/22/21 17:00 Eosinophils % 0.1 % (0-4.4) 08/22/21 17:00 Basophils % 0.8 % (0-1.3) 08/22/21 17:00 Absolute Neutrophils 6.7 K/uL (1.8-8.0) 08/22/21 17:00 Absolute Lymphocytes 1.9 K/uL (0.7-4.9) 08/22/21 17:00 Absolute Monocytes 0.9 K/uL (0.1-1.3) 08/22/21 17:00 Absolute Eosinophils 0.0 K/uL (0-0.5) 08/22/21 17:00 Absolute Basophils 0.1 K/uL (0-0.5) 08/22/21 17:00 PT 15.2 SECONDS (9.5-12.5) H 08/22/21 17:00 INR 1.32 08/22/21 17:00 Sodium 140 mmol/L (136-145) 08/22/21 17:00 Potassium 3.3 mmol/L (3.5-5.1) L 08/22/21 17:00 Chloride 106 mmol/L (98-107) 08/22/21 17:00 Carbon Dioxide 23 mmol/L (21-32) 08/22/21 17:00 BUN 28 mg/dL (7-18) H 08/22/21 17:00 Creatinine 1.31 mg/dL (0.55-1.3) H 08/22/21 17:00 Estimated GFR 48 mL/min (=/>90) L 08/22/21 17:00 Glucose 125 mg/dL (74-106) H 08/22/21 17:00 Lactic Acid 1.2 mmol/L (0.4-2.0) 08/22/21 20:30 Calcium 8.1 mg/dL (8.5-10.1) L 08/22/21 17:00 Magnesium 1.6 mg/dL (1.8-2.4) L 08/22/21 17:00 Total Bilirubin 0.6 mg/dL (0.2-1.0) 08/22/21 17:00 Direct Bilirubin 0.2 mg/dL (0-0.2) 08/22/21 17:00 AST 54 U/L (15-37) H 08/22/21 17:00 ALT 28 U/L (12-78) 08/22/21 17:00 Alkaline Phosphatase 83 U/L (45-117) 08/22/21 17:00 Rapid Troponin I < 0.02 ng/mL (0.0-0.045) 08/22/21 17:00 NT-Pro-B Natriuret Pep 207 pg/mL (<125) H 08/22/21 17:00 Serum Total Protein 6.2 g/dL (6.4-8.2) L 08/22/21 17:00 Albumin 2.0 g/dL (3.4-5.0) L 08/22/21 17:00 Globulin 4.2 g/dL (2.3-3.5) H 08/22/21 17:00 Albumin/Globulin Ratio 0.5 (1.1-1.8) L 08/22/21 17:00 Procalcitonin 0.69 ng/mL (<0.050) H 08/22/21 17:00 Urine pH 5.5 (5.0-7.0) 08/22/21 18:53 Ur Specific [place] 1.025 (1.005-1.030) 08/22/21 18:53 Glucose (UA)(Auto) Negative (Negative) 08/22/21 18:53 Urine Ketones Trace (Negative) H 08/22/21 18:53 Urine Blood 2+ (Negative) H 08/22/21 18:53 Urine Nitrite Negative (Negative) 08/22/21 18:53 Ur Leukocyte Esterase Trace (Negative) H 08/22/21 18:53 Urine RBC <5 /HPF (NONE SEEN) 08/22/21 18:55 Urine WBC Tntc /HPF (<5) H 08/22/21 18:55 Ur Squamous Epith Cells <5 /HPF (NONE SEEN) 08/22/21 18:55 Urine Bacteria >50 /HPF (<20) H 08/22/21 18:55 Urine Yeast Many (NONE SEEN) 08/22/21 18:55 Urine Culture Reflexed Reflexed 08/22/21 18:55 Urine Total Protein 2+ (Negative) H 08/22/21 18:53 Influenza Type A RNA Negative (NEGATIVE) 08/22/21 16:00 Influenza Type B RNA Negative (NEGATIVE) 08/22/21 16:00 SARS-CoV-2 RNA (RT-PCR) Negative (NEGATIVE) 08/22/21 16:00 Assessment And Plan - Plan Physical Exam: General: In no apparent distress HEENT: Atraumatic Neck: 2+ carotid pulse no bruit, JVD not distended Respiratory: Clear to auscultation bilaterally, Normal air movement Cardiovascular: Regular rate/rhythm, Normal S1 S2 Gastrointestinal: Soft and benign Musculoskeletal: No clubbing, No swelling, No contractures Integumentary: No rashes, No breakdown, No significant lesion Conclusions/Impression: Antibiotics: Cefepime Start: 08/23 stop recommend on: 08/28-08/30 Assessment/plan Urinary tract infection Urine analysis showed bacteria >50 and many WBC. Also showed yeast, patient has history of the fungal UTIs in the past, was treated with a 14 day course of fluconazole on last admission. Patient is likely colonized at this point, no clinical indication for antifungals. Patient empirically started on cefepime, urine culture showed mixed capri. would deescalate antibiotics however patient is set to hav a PEG tub placed and needs pre op antibiotics. dysphasia/anemia/debility/weakness -medical management per primary team -continue to monitor CBC and BMP -continue to monitor for signs of infection -plan of care discussed with Dr. Charles Thank you for consultation
[2021-08-27] MEDS ORDERED: Ringers Lactate 1,000 ML IV ONE (12:21)
[2021-08-27] MEDS ORDERED: FENTANYL CITR 100 MCG/2 ML ONE (12:45)
[2021-08-27] MEDS ORDERED: LIDOCAINE 1% MPF 5 ML VIAL ONE (12:45)
[2021-08-27] MEDS ORDERED: propofoL 200 MG/20 ML VIAL IV ONE (12:45)
--- NOTE | 2021-08-27 13:52 | ENDO RPT ---
[address], [address] EGD WITH PEG PROCEDURE REPORT EXAM DATE: 08/27/2021 PATIENT NAME: Marry Chowdary MR #: [id number] BIRTHDATE: 1950 ATTENDING: Luis Antonio Stubbs Dr STATUS: inpatient - 7 TRUCK WASHER: Pina Tse RN, Fina Olivo CST, and Nalini Clarke RN INDICATIONS: The patient is a 70 yr old Female here for an EGD with PEG due to dysphagia due to chronic progressive post-COVID19 demyelinating neuropathy, failed swallow study / modified barium swallow, protein-calorie malnutrition (albumin 1.3) PROCEDURE PERFORMED: EGD-PEG EGD with biopsy MEDICATIONS: Per Anesthesia. TOPICAL ANESTHETIC: none CONSENT: The patient understands the risks and benefits of the procedure and understands that these risks include, but are not limited to: sedation, allergic reaction, infection, perforation and/or bleeding. Alternative means of evaluation and treatment include, among others: physical exam, x-rays, and/or surgical intervention. The patient elects to proceed with this endoscopic procedure. DESCRIPTION OF PROCEDURE: During intra-op preparation period all mechanical medical equipment was checked for proper function. Hand hygiene and appropriate measures for infection prevention was taken. After the risks, benefits and alternatives of the procedure were thoroughly explained, Informed consent was verified, confirmed and timeout was successfully executed by the treatment team. The patient was anesthetized with topical anesthesia and the Pentax EG-[id number] ([id number]) endoscope was introduced through the mouth and advanced to the third portion of the duodenum. The instrument was slowly withdrawn as the mucosa was fully examined. Multiple erosions were found in the body of the stomach. Mild gastritis was found in the antrum. Multiple biopsies were obtained and sent to pathology. Duodenitis was found in the bulb and descending duodenum. The stomach was then inflated with air, and by a combination of transillumination and manual palpation, the site for the gastrostomy tube placement was selected and marked on the anterior abdominal wall. The skin of the anterior abdomen was surgically prepped and draped with sterile towels. Utilizing strict sterile technique, the selected site was then anesthetized with 1% xylocaine by injection into the skin and subcutaneous tissue. A 1 cm incision was made through the skin and subcutaneous tissue, and the needle/cannula assembly was then passed through the abdominal wall and through the anterior wall of the stomach, maintaining visualization with the endoscope. A snare device previously placed through the instrument channel was then opened and placed around the cannula, the needle was removed, and the insertion wire was passed through the cannula and into the stomach lumen. The snare was then loosened from the cannula, and repositioned to snare the insertion wire. The snare was then pulled up to the endoscope distal tip, and the scope was then withdrawn bringing with it the snare and insertion wire. The insertion wire was then released from the snare, and the PEG PUSH gastrostomy tube placed over the guidewire. Using the push technique, the tube was then pushed into place over the insertion wire at the abdominal wall end. The tube insertion site was then cleansed once again, and the external bolster was placed over the tube to secure it to the abdominal wall. A sterile dressing was then applied, and the procedure terminated. Retroflexed views revealed no abnormalities. The gastroscope was then slowly withdrawn and removed. ADVERSE EVENT: There were no complications. IMPRESSIONS: 1. Status post 20 Fr percutaneous endoscopic gastrostomy 2. Multiple (2) erosions with specks of heme in the body of the stomach 3. Mild gastritis in the antrum, s/p biopsies 4. Mild duodenitis in the bulb and descending duodenum RECOMMENDATIONS: 1. begin PEG use in 3 hours 2. await biopsy results 3. acid suppression therapy REPEAT EXAM: Luis Antonio Stubbs Dr eSigned: Luis Antonio Stubbs Dr 08/27/2021 1:52 PM cc: CPT CODES: ICD9 CODES: PATIENT NAME: Marry Chowdary MR#: [id number]
[2021-08-27] MEDS ORDERED: MORPHINE 2 MG/ML SYR IV PRN (14:23)
[2021-08-27] MEDS: CEFEPIME 1 GM/100 ML BAG IV SCH (17:03)
[2021-08-27] MEDS: JEVITY 1.5 CAL LIQUID 1,000 ML BOT FT SCH ×2 (17:06→20:21)
--- NOTE | 2021-08-27 19:07 | CON ---
Date of Consultation: 08/27/2021 Reason For Consultation: Dysphagia secondary to post COVID chronic demyelinating neuropathy. History Of Present Illness: The patient is a 70-year-old female who has hypertensio n, osteomyelitis, and hyperlipidemia. The patient presented to the hospital for dysphagia of Neurology. The patient was diagnosed with a post COVID syndrome, progressive chronic demyelinati ng neuropathy causing progressive weakness in the distal to proximal extremities, loss of reflexes an d stocking-glove loss of sensation in multiple modalities and has dysphagia as part of this neuropath y. It appears this post COVID neuropathy causing her dysphagia. The patient failed swallow study, m odified barium swallow on August 23. Recommendation to proceed with access for other alternatives enteral feeding such as PEG tube and GI was consulted. Past Medical History: Significant for hypertension, osteomyelitis, hyperlipidemia, and post COVID ch ronic progressive demyelinating neuropathy affecting her swallowing ability now. Medication: Medications at home include viscous lidocaine, lisinopril, doxycycline, Diflucan, Decadr on, and Levaquin. Allergies: NKDA. Social History: She is a , 3 children. No tobacco. No alcohol. Family History: Father of cerebral aneurysm. Mother of end-stage renal disease, hypertens ion. Review of Systems: The patient was admitted to the hospital due to dysphagia since last seen. The daughter at the [facility] en[facility] room told the ER doctor that she had problems swallowing for 2 weeks, was getting worse. There was no reported reflux disease, hematemesis, coffee-grounds emesis, melena, hematochezia, and february e had some weight loss due to decreased p.o. intake. No chest pain, shortness of breath, seizure, sy ncope, muscle aches, joint aches, backaches. Physical Examination: General: The patient is lying in bed, in no acute distress. Able to answer questions appropriately. Vital Signs: She is 5 feet 7 inches. 140 pounds, BMI 29 kg/meter square. Temperature 98.4 degrees Fahrenheit, pulse 102, respirations 18, blood pressure 120/67, O2 saturation 97%. HEENT: Normocephalic, atraumatic. Anicteric. Pupils equal, round, and reactive to light. Extraocu lar movements intact. Oropharynx is clear. Neck: Supple. No masses. Respirations: Clear to auscultation bilaterally. Cardiac: Revealed regular rhythm and rate. No gallop or rubs. Gastrointestinal: Positive bowel sounds. Soft, nontender, nondistended. No hepatosplenomegaly. Mi ldly obese. Extremities: No clubbing, cyanosis, or edema. Able to move extremities somewhat 4/5 at l east and it appears 5/5. Decreased sensation as per neurology exam. Stocking-glove in the hands and feet. Laboratory Data: The patient's white count 7.6, hemoglobin 8.5, hematocrit 26.1, MCV of 97.1, platel et count 264, polys 86%, lymphocytes 29%, monocytes 14%, eosinophils 1%. PT of 15.2, INR of 1.32. C hemistry: Sodium 145, potassium 3.9, chloride 114, bicarb 23, BUN of 8, creatinine of 0.48, glucose 95, calcium 8.1, magnesium 1.7, total bilirubin of 0.3, AST 39, ALT 21, alkaline phosphatase 78, tota l protein 5.0, albumin 1.3, fairly low. UA with xpf-jsbbtrth-er-count white blood cells, greater ian n 50 bacteria, less than 5 squamous epithelial cells. She had UTI as well as urosepsis. COVID-19 wa s negative . Modified barium swallow on showed the patient failed with liquids and so lids. CT chest from August 22 revealed emphysematous changes present throughout lungs, fibrotic carotids seen. Impression: 1.Dysphagia secondary to post COVID syndrome progressive chronic demyelinating neuropathy affecting her swallowing now. She feels swallow exam on August 22 is about a 5 barium swallow. 2.Post COVID syndrome with progressive chronic demyelinating neuropathy. 3.History of hypertension, osteoporosis, hyperlipidemia, and has post COVID progressive chronic demy elinating neuropathy. 4.Protein-calorie malnutrition. Albumin 1.3. 5.Urinary tract infection/urosepsis with positive urinalysis. Recommendations: 1.EGD with PEG. 2.IV antibiotics. 3.PEG tube feedings after EGD of PEG placement. 4.Monitor labs. Possible refeeding syndrome. WS/MODL Voice ID: [id number] Report ID: [id number]
[2021-08-28 03:56] LABS: Absolute Lymphocytes (CBC) 1.8 K/uL (0.7-4.9); Basophils % 0.4 % (0-1.3); Lymphocytes % 19.9 % (15.3-44.8); MPV 7.9 fL (7.6-11.3); RBC Red Blood Cell Count 2.55 M/uL (3.86-4.86)
[2021-08-28 04:13] LABS: Magnesium 1.8 mg/dL (1.8-2.4); Potassium 4.8 mmol/L (3.5-5.1)
[2021-08-28] MEDS ORDERED: MAGNESIUM SULFATE 1 gm IVPB 1 GM/100 ML BAG IV ONE (04:46)
[2021-08-28] MEDS: METOPROLOL TAR 25 MG TAB PO SCH ×2 (05:29→17:19)
[2021-08-28] MEDS: HEPARIN 5000 UNIT/ML 1 ML VIAL SQ SCH (09:24)
[2021-08-28] MEDS: JEVITY 1.5 CAL LIQUID 1,000 ML BOT FT SCH ×4 (09:25→21:19)
--- NOTE | 2021-08-28 10:33 | RAD REPORT ---
EXAM DESCRIPTION: USExtremity Venous Uni Ltd08/28/2021 10:17 am CLINICAL HISTORY: Right leg pain and swelling. COMPARISON: None. FINDINGS: Echogenic material consistent with thrombus is present within the right common femoral, ri ght superficial femoral, right popliteal, and right posterior tibial veins. Veins are not compressible. There is little normal spontaneous flow. IMPRESSION: Occlusive acute thrombus throughout the deep veins right lower extremity
--- NOTE | 2021-08-28 15:15 | P.PN ---
Subjective Date of Service: 08/28/21 Primary Care Provider: Dr. Taylor Chief Complaint: Dysphagia Patient with right lower extremity swelling. She tolerates liquid diet but not solid. Status post endoscopy with PEG tube placement. Venous Doppler shows acute DVT of the right lower extremity. Physical Examination - Vital Signs Temperature: 98.1 F Blood Pressure: 130/88 Pulse: 112 Respirations: 18 Pulse Ox (%): 96 - Studies Microbiology Data (last 24 hrs): 08/22/21 16:55 Blood - Blood Aerobic Blood Culture - Final No growth in 5 days. 08/22/21 16:55 Blood - Blood Anaerobic Blood Culture - Final No growth in 5 days. 08/22/21 17:00 Blood - Blood Aerobic Blood Culture - Final No growth in 5 days. 08/22/21 17:00 Blood - Blood Anaerobic Blood Culture - Final No growth in 5 days. Assessment And Plan - Plan Physical exam GEN: Alert, NAD. HEENT: Sclera anicteric CV: regular rhythm, normal rate. Pulm: Clear to auscultation bilaterally. Adequate breath sounds bilaterally. ABD: Soft, nontender, nondistended. PEG tube. MSK: Right lower extremity swollen compared to the left Integumentary: small superficial skin breakdown on buttocks, superficial decubitus ulcer on sacrum. Neuro: Normal speech, normal affect, moves all extremities, significant weakness in bilateral lower extremities. Diagnosis Dysphagia with solid food Urinary tract infection with candidiasis Acute kidney injury, prerenal, resolved Tachyarrhythmia Normocytic anemia, anemia of chronic disease. Acute right lower extremity DVT Hypertension Osteoarthritis debility after prolonged hospitalization with Covid complicated with GI bleed Dysphagia: Neurology consulted. There is concern for the demyelinating neuropathy, likely secondary to Covid 19 Patient will need further work-up as an outpatient with EMG. Status post PEG tube and feeding tube started. Patient also tolerating liquids Fever, urinary tract infection with candidiasis: Patient with recent hospitalization for similar, urine culture and blood cultures were negative at that time. Continue with cefepime, infectious disease is following.Urine culture: Mixed capri. Antibiotic day 5. Yeast in urine suspected to be colonization Acute kidney injury: Resolved with IV fluids, suspect prerenal/hypovolemia Tachyarrhythmia: Patient with paroxysmal tachyarrhythmia, appears to be sinus tachycardia with PACs. Continue to monitor on telemetry, possible atrial fibrillation. Continue metoprolol Normocytic anemia, anemia of chronic disease/history of GI bleed Patient started on heparin drip for acute lower extremity DVT. Monitor H&H closely and transfuse to maintain hemoglobin greater than 7. Acute lower extremity DVT Given patient has a history of GI bleed and anemia will start heparin drip and watch H&H closely. Patient will need anticoagulation otherwise if her hemoglobin drop, will consult surgery for IVC filter and stop anticoagulation. Osteoarthritis: hold off on any NSAIDs given acute kidney injury. Medical debility after prolonged hospitalization with Covid complicated with GI bleed: Physical therapy consulted, patient family reports that she is currently residing at home with her daughter. Currently bedbound but able to sit up on the edge of the bed. Family prefers home with home health. They state patient has very good social support at home.
[2021-08-28 16:06] LABS: Protime INR 1.16
[2021-08-28 16:07] LABS: Absolute Lymphocytes (CBC) 1.6 K/uL (0.7-4.9); Basophils % 0.5 % (0-1.3); Hematocrit 26.1 % (36.0-45.0); Lymphocytes % 17.6 % (15.3-44.8); MPV 8.1 fL (7.6-11.3); RBC Red Blood Cell Count 2.64 M/uL (3.86-4.86)
--- NOTE | 2021-08-28 16:56 | EKG ---
Test Date: 2021-08-24 Test Time: 22:11:09 Marine Engineering Teacher: ASHLEY MEASUREMENT RESULTS: Intervals: Rate: 115 NE: 146 QRSD: 92 QT: 350 QTc: 484 [place]: P: 58 NE: 146 QRS: 0 T: 179 INTERPRETIVE STATEMENTS: Sinus tachycardia with premature atrial complexes Left ventricular hypertrophy with repolarization abnormality Abnormal ECG Compared to ECG 08/22/2021 18:43:25 Atrial premature complex(es) now present Left ventricular hypertrophy now present Early repolarization now present Ventricular premature complex(es) no longer present ST (T wave) deviation no longer present Possible ischemia no longer present Electronically Signed On 08-28-21 16:51:31 MOLD MAKER by Ryan Lua
[2021-08-28] MEDS: HEPARIN/D5W 25,000 UNIT/500 ML BAG IV SCH (17:10)
[2021-08-28] MEDS: CEFEPIME 1 GM/100 ML BAG IV SCH (18:07)
--- NOTE | 2021-08-28 18:07 | P.PN ---
Subjective Date of Service: 08/28/21 Primary Care Provider: Dr. 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, s/p PEG tube yesterday Subjective: New changes (Tolerating TFs well today she reports.) Review of Systems 10-point ROS is otherwise unremarkable General: Weakness (Improving. ) Physical Examination - Vital Signs Temperature: 98.1 F Blood Pressure: 132/62 Pulse: 110 Respirations: 18 Pulse Ox (%): 96 - Physical Exam General: Alert, In no apparent distress, Oriented x3, Cooperative HEENT: Atraumatic, Normocephalic, PERRLA, EOMI Neck: Supple Respiratory: Diminished Cardiovascular: Normal pulses Gastrointestinal: Soft and benign, No rebound, No guarding Neurological: Normal speech - Studies Microbiology Data (last 24 hrs): 08/22/21 16:55 Blood - Blood Aerobic Blood Culture - Final No growth in 5 days. 08/22/21 16:55 Blood - Blood Anaerobic Blood Culture - Final No growth in 5 days. 08/22/21 17:00 Blood - Blood Aerobic Blood Culture - Final No growth in 5 days. 08/22/21 17:00 Blood - Blood Anaerobic Blood Culture - Final No growth in 5 days. Assessment And Plan - Current Problems (Diagnosis) (1) Dysphagia Current Visit: Yes Status: Acute (2) Demyelinating disease Current Visit: Yes Status: Acute (3) Neuropathy Current Visit: Yes Status: Acute (4) Protein calorie malnutrition Current Visit: Yes Status: Acute - Plan REC: 1) continue TFs 2) water boluses 3) check pre-albumin
[2021-08-29 03:18] LABS: Hematocrit 24.6 % (36.0-45.0)
[2021-08-29 03:31] LABS: Magnesium 1.9 mg/dL (1.8-2.4); Potassium 4.5 mmol/L (3.5-5.1); Prealbumin 5.8 mg/dL (20-40)
[2021-08-29] MEDS: METOPROLOL TAR 25 MG TAB PO SCH ×2 (06:00→16:51)
[2021-08-29] MEDS: JEVITY 1.5 CAL LIQUID 1,000 ML BOT FT SCH ×4 (09:00→20:02)
--- NOTE | 2021-08-29 10:18 | P.PN ---
Subjective Date of Service: 08/29/21 Primary Care Provider: Dr. 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, s/p PEG tube yesterday Patient seen and examined at bedside, PEG tube placed. Surgery went well with no complications. Patient denies pain to site. PEG feeding began yesterday. Review of Systems 10-point ROS is otherwise unremarkable Physical Examination - Vital Signs Temperature: 98.6 F Blood Pressure: 111/79 Pulse: 100 Respirations: 16 Pulse Ox (%): 97 - Studies Laboratory Last Values WBC 9.60 K/uL (4.3-10.9) 08/22/21 17:00 RBC 3.06 M/uL (3.86-4.86) L 08/22/21 17:00 Hgb 9.8 g/dL (12.0-15.0) L 08/22/21 17:00 Hct 29.4 % (36.0-45.0) L 08/22/21 17:00 MCV 96.0 fL (80-100) 08/22/21 17:00 MCH 32.1 pg (27.0-35.0) 08/22/21 17:00 MCHC 33.5 g/dL (32.0-36.0) 08/22/21 17:00 RDW 18.0 % (12.1-15.2) H 08/22/21 17:00 Plt Count 185 K/uL (152-406) 08/22/21 17:00 MPV 8.3 fL (7.6-11.3) 08/22/21 17:00 Neutrophils % 69.5 % (41.7-73.7) 08/22/21 17:00 Lymphocytes % 20.1 % (15.3-44.8) 08/22/21 17:00 Monocytes % 9.5 % (3.3-12.3) 08/22/21 17:00 Eosinophils % 0.1 % (0-4.4) 08/22/21 17:00 Basophils % 0.8 % (0-1.3) 08/22/21 17:00 Absolute Neutrophils 6.7 K/uL (1.8-8.0) 08/22/21 17:00 Absolute Lymphocytes 1.9 K/uL (0.7-4.9) 08/22/21 17:00 Absolute Monocytes 0.9 K/uL (0.1-1.3) 08/22/21 17:00 Absolute Eosinophils 0.0 K/uL (0-0.5) 08/22/21 17:00 Absolute Basophils 0.1 K/uL (0-0.5) 08/22/21 17:00 PT 15.2 SECONDS (9.5-12.5) H 08/22/21 17:00 INR 1.32 08/22/21 17:00 Sodium 140 mmol/L (136-145) 08/22/21 17:00 Potassium 3.3 mmol/L (3.5-5.1) L 08/22/21 17:00 Chloride 106 mmol/L (98-107) 08/22/21 17:00 Carbon Dioxide 23 mmol/L (21-32) 08/22/21 17:00 BUN 28 mg/dL (7-18) H 08/22/21 17:00 Creatinine 1.31 mg/dL (0.55-1.3) H 08/22/21 17:00 Estimated GFR 48 mL/min (=/>90) L 08/22/21 17:00 Glucose 125 mg/dL (74-106) H 08/22/21 17:00 Lactic Acid 1.2 mmol/L (0.4-2.0) 08/22/21 20:30 Calcium 8.1 mg/dL (8.5-10.1) L 08/22/21 17:00 Magnesium 1.6 mg/dL (1.8-2.4) L 08/22/21 17:00 Total Bilirubin 0.6 mg/dL (0.2-1.0) 08/22/21 17:00 Direct Bilirubin 0.2 mg/dL (0-0.2) 08/22/21 17:00 AST 54 U/L (15-37) H 08/22/21 17:00 ALT 28 U/L (12-78) 08/22/21 17:00 Alkaline Phosphatase 83 U/L (45-117) 08/22/21 17:00 Rapid Troponin I < 0.02 ng/mL (0.0-0.045) 08/22/21 17:00 NT-Pro-B Natriuret Pep 207 pg/mL (<125) H 08/22/21 17:00 Serum Total Protein 6.2 g/dL (6.4-8.2) L 08/22/21 17:00 Albumin 2.0 g/dL (3.4-5.0) L 08/22/21 17:00 Globulin 4.2 g/dL (2.3-3.5) H 08/22/21 17:00 Albumin/Globulin Ratio 0.5 (1.1-1.8) L 08/22/21 17:00 Procalcitonin 0.69 ng/mL (<0.050) H 08/22/21 17:00 Urine pH 5.5 (5.0-7.0) 08/22/21 18:53 Ur Specific [place] 1.025 (1.005-1.030) 08/22/21 18:53 Glucose (UA)(Auto) Negative (Negative) 08/22/21 18:53 Urine Ketones Trace (Negative) H 08/22/21 18:53 Urine Blood 2+ (Negative) H 08/22/21 18:53 Urine Nitrite Negative (Negative) 08/22/21 18:53 Ur Leukocyte Esterase Trace (Negative) H 08/22/21 18:53 Urine RBC <5 /HPF (NONE SEEN) 08/22/21 18:55 Urine WBC Tntc /HPF (<5) H 08/22/21 18:55 Ur Squamous Epith Cells <5 /HPF (NONE SEEN) 08/22/21 18:55 Urine Bacteria >50 /HPF (<20) H 08/22/21 18:55 Urine Yeast Many (NONE SEEN) 08/22/21 18:55 Urine Culture Reflexed Reflexed 08/22/21 18:55 Urine Total Protein 2+ (Negative) H 08/22/21 18:53 Influenza Type A RNA Negative (NEGATIVE) 08/22/21 16:00 Influenza Type B RNA Negative (NEGATIVE) 08/22/21 16:00 SARS-CoV-2 RNA (RT-PCR) Negative (NEGATIVE) 08/22/21 16:00 Assessment And Plan - Plan Physical Exam: General: In no apparent distress HEENT: Atraumatic Neck: 2+ carotid pulse no bruit, JVD not distended Respiratory: Clear to auscultation bilaterally, Normal air movement Cardiovascular: Regular rate/rhythm, Normal S1 S2 Gastrointestinal: Soft and benign Musculoskeletal: No clubbing, No swelling, No contractures Integumentary: No rashes, No breakdown, No significant lesion Conclusions/Impression: Antibiotics: Cefepime Start: 08/23 stop recommend on: 08/28-08/30 Assessment/plan Urinary tract infection Urine analysis showed bacteria >50 and many WBC. Also showed yeast, patient has history of the fungal UTIs in the past, was treated with a 14 day course of fluconazole on last admission. Patient is likely colonized at this point, no clinical indication for antifungals. Patient empirically started on cefepime, urine culture showed mixed capri. Recommend discontinuing cefepime at this time. dysphasia/anemia/debility/weakness -medical management per primary team -continue to monitor CBC and BMP -continue to monitor for signs of infection -plan of care discussed with Dr. Charles Thank you for consultation
--- NOTE | 2021-08-29 12:52 | P.PN ---
Subjective Date of Service: 08/29/21 Primary Care Provider: Dr. 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 Right lower extremity swelling is unchanged. Hemoglobin dropped slightly. Physical Examination - Vital Signs Temperature: 98.6 F Blood Pressure: 111/79 Pulse: 100 Respirations: 16 Pulse Ox (%): 97 Assessment And Plan - Plan Physical exam GEN: Alert, NAD. HEENT: Sclera anicteric CV: regular rhythm, normal rate. Pulm: Clear to auscultation bilaterally. Adequate breath sounds bilaterally. ABD: Soft, nontender, nondistended. PEG tube. MSK: Right lower extremity swollen. Integumentary: small superficial skin breakdown on buttocks, superficial decubitus ulcer on sacrum. Neuro: Normal speech, normal affect, moves all extremities, significant weakness in bilateral lower extremities. Diagnosis Dysphagia with solid food Urinary tract infection with candidiasis Acute kidney injury, prerenal, resolved Tachyarrhythmia Normocytic anemia, anemia of chronic disease. Acute right lower extremity DVT Hypertension Osteoarthritis debility after prolonged hospitalization with Covid complicated with GI bleed Dysphagia: There is concern for the demyelinating neuropathy, likely secondary to Covid 19. Seen by neurology. Patient will need further work-up as an outpatient with EMG. Status post PEG tube and feeding tube started. Patient tolerating liquids Fever, urinary tract infection with candidiasis: Patient with recent hospitalization for similar, urine culture and blood cultures were negative at that time. Seen by infectious disease. Urine culture: Mixed capri. Patient completed 5 days of IV cefepime. Yeast in urine suspected to be colonization Acute kidney injury: Resolved with IV fluids. Tachyarrhythmia: Patient with paroxysmal tachyarrhythmia, appears to be sinus tachycardia with PACs. Continue to monitor on telemetry, possible atrial fibrillation. Continue metoprolol Normocytic anemia, anemia of chronic disease/history of GI bleed Patient started on heparin drip for acute lower extremity DVT. Monitor H&H closely and transfuse to maintain hemoglobin greater than 7. Acute lower extremity DVT Continue heparin drip and watch hemoglobin closely. Will consult surgery for IVC filter and stop anticoagulation if hemoglobin continues to drop. Osteoarthritis: hold off on any NSAIDs given acute kidney injury. Medical debility after prolonged hospitalization with Covid complicated with GI bleed: Physical therapy consulted, patient family reports that she is currently residing at home with her daughter. Currently bedbound but able to sit up on the edge of the bed. Family prefers home with home health. They state patient has very good social support at home. Family are now requesting for skilled rehab placement.
[2021-08-29 17:58] LABS: Hematocrit 25.5 % (36.0-45.0)
[2021-08-30] MEDS: METOPROLOL TAR 25 MG TAB PO SCH ×2 (05:10→17:46)
[2021-08-30 06:04] LABS: Hematocrit 26.9 % (36.0-45.0)
[2021-08-30 06:16] LABS: MPV 8.2 fL (7.6-11.3)
[2021-08-30] MEDS: JEVITY 1.5 CAL LIQUID 1,000 ML BOT FT SCH ×4 (09:00→20:28)
--- NOTE | 2021-08-30 09:43 | P.PN ---
Subjective Date of Service: 08/30/21 Primary Care Provider: Dr. 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 Review of Systems 10-point ROS is otherwise unremarkable Physical Examination - Vital Signs Temperature: 98.4 F Blood Pressure: 119/59 Pulse: 84 Respirations: 20 Pulse Ox (%): 97 - Studies Laboratory Last Values WBC 9.60 K/uL (4.3-10.9) 08/22/21 17:00 RBC 3.06 M/uL (3.86-4.86) L 08/22/21 17:00 Hgb 9.8 g/dL (12.0-15.0) L 08/22/21 17:00 Hct 29.4 % (36.0-45.0) L 08/22/21 17:00 MCV 96.0 fL (80-100) 08/22/21 17:00 MCH 32.1 pg (27.0-35.0) 08/22/21 17:00 MCHC 33.5 g/dL (32.0-36.0) 08/22/21 17:00 RDW 18.0 % (12.1-15.2) H 08/22/21 17:00 Plt Count 185 K/uL (152-406) 08/22/21 17:00 MPV 8.3 fL (7.6-11.3) 08/22/21 17:00 Neutrophils % 69.5 % (41.7-73.7) 08/22/21 17:00 Lymphocytes % 20.1 % (15.3-44.8) 08/22/21 17:00 Monocytes % 9.5 % (3.3-12.3) 08/22/21 17:00 Eosinophils % 0.1 % (0-4.4) 08/22/21 17:00 Basophils % 0.8 % (0-1.3) 08/22/21 17:00 Absolute Neutrophils 6.7 K/uL (1.8-8.0) 08/22/21 17:00 Absolute Lymphocytes 1.9 K/uL (0.7-4.9) 08/22/21 17:00 Absolute Monocytes 0.9 K/uL (0.1-1.3) 08/22/21 17:00 Absolute Eosinophils 0.0 K/uL (0-0.5) 08/22/21 17:00 Absolute Basophils 0.1 K/uL (0-0.5) 08/22/21 17:00 PT 15.2 SECONDS (9.5-12.5) H 08/22/21 17:00 INR 1.32 08/22/21 17:00 Sodium 140 mmol/L (136-145) 08/22/21 17:00 Potassium 3.3 mmol/L (3.5-5.1) L 08/22/21 17:00 Chloride 106 mmol/L (98-107) 08/22/21 17:00 Carbon Dioxide 23 mmol/L (21-32) 08/22/21 17:00 BUN 28 mg/dL (7-18) H 08/22/21 17:00 Creatinine 1.31 mg/dL (0.55-1.3) H 08/22/21 17:00 Estimated GFR 48 mL/min (=/>90) L 08/22/21 17:00 Glucose 125 mg/dL (74-106) H 08/22/21 17:00 Lactic Acid 1.2 mmol/L (0.4-2.0) 08/22/21 20:30 Calcium 8.1 mg/dL (8.5-10.1) L 08/22/21 17:00 Magnesium 1.6 mg/dL (1.8-2.4) L 08/22/21 17:00 Total Bilirubin 0.6 mg/dL (0.2-1.0) 08/22/21 17:00 Direct Bilirubin 0.2 mg/dL (0-0.2) 08/22/21 17:00 AST 54 U/L (15-37) H 08/22/21 17:00 ALT 28 U/L (12-78) 08/22/21 17:00 Alkaline Phosphatase 83 U/L (45-117) 08/22/21 17:00 Rapid Troponin I < 0.02 ng/mL (0.0-0.045) 08/22/21 17:00 NT-Pro-B Natriuret Pep 207 pg/mL (<125) H 08/22/21 17:00 Serum Total Protein 6.2 g/dL (6.4-8.2) L 08/22/21 17:00 Albumin 2.0 g/dL (3.4-5.0) L 08/22/21 17:00 Globulin 4.2 g/dL (2.3-3.5) H 08/22/21 17:00 Albumin/Globulin Ratio 0.5 (1.1-1.8) L 08/22/21 17:00 Procalcitonin 0.69 ng/mL (<0.050) H 08/22/21 17:00 Urine pH 5.5 (5.0-7.0) 08/22/21 18:53 Ur Specific [place] 1.025 (1.005-1.030) 08/22/21 18:53 Glucose (UA)(Auto) Negative (Negative) 08/22/21 18:53 Urine Ketones Trace (Negative) H 08/22/21 18:53 Urine Blood 2+ (Negative) H 08/22/21 18:53 Urine Nitrite Negative (Negative) 08/22/21 18:53 Ur Leukocyte Esterase Trace (Negative) H 08/22/21 18:53 Urine RBC <5 /HPF (NONE SEEN) 08/22/21 18:55 Urine WBC Tntc /HPF (<5) H 08/22/21 18:55 Ur Squamous Epith Cells <5 /HPF (NONE SEEN) 08/22/21 18:55 Urine Bacteria >50 /HPF (<20) H 08/22/21 18:55 Urine Yeast Many (NONE SEEN) 08/22/21 18:55 Urine Culture Reflexed Reflexed 08/22/21 18:55 Urine Total Protein 2+ (Negative) H 08/22/21 18:53 Influenza Type A RNA Negative (NEGATIVE) 08/22/21 16:00 Influenza Type B RNA Negative (NEGATIVE) 08/22/21 16:00 SARS-CoV-2 RNA (RT-PCR) Negative (NEGATIVE) 08/22/21 16:00 Assessment And Plan - Plan Physical Exam: General: In no apparent distress HEENT: Atraumatic Neck: 2+ carotid pulse no bruit, JVD not distended Respiratory: Clear to auscultation bilaterally, Normal air movement Cardiovascular: Regular rate/rhythm, Normal S1 S2 Gastrointestinal: Soft and benign Musculoskeletal: No clubbing, No swelling, No contractures Integumentary: No rashes, No breakdown, No significant lesion Conclusions/Impression: Antibiotics: Cefepime Start: 08/23 stop recommend on: 08/28-08/30 Assessment/plan Urinary tract infection Urine analysis showed bacteria >50 and many WBC. Also showed yeast, patient has history of the fungal UTIs in the past, was treated with a 14 day course of fluconazole on last admission. Patient is likely colonized at this point, no clinical indication for antifungals. Patient empirically started on cefepime, completed course. Patient has completed course of antibiotics and is stable off antibiotics. Infectious disease will sign off at this time. dysphasia/anemia/debility/weakness -medical management per primary team -continue to monitor CBC and BMP -continue to monitor for signs of infection -plan of care discussed with Dr. Charles Thank you for consultation
--- NOTE | 2021-08-30 13:36 | P.PN ---
Subjective Date of Service: 08/30/21 Primary Care Provider: Dr. 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 Right lower extremity swelling is unchanged. Hemoglobin has remained stable on the heparin drip. Physical Examination - Vital Signs Temperature: 98.4 F Blood Pressure: 110/63 Pulse: 90 Respirations: 20 Pulse Ox (%): 98 Assessment And Plan - Plan Physical exam GEN: Alert, NAD. HEENT: Sclera anicteric CV: regular rhythm, normal rate. Pulm: Clear to auscultation bilaterally. Adequate breath sounds bilaterally. ABD: Soft, nontender, nondistended. PEG tube. MSK: Right lower extremity swollen-from foot to thigh. Integumentary: small superficial skin breakdown on buttocks, superficial decubitus ulcer on sacrum. Neuro: Normal speech, normal affect, moves all extremities, significant weakness in bilateral lower extremities. Diagnosis Dysphagia with solid food Urinary tract infection with candidiasis Acute kidney injury, prerenal, resolved Tachyarrhythmia Normocytic anemia, anemia of chronic disease. Acute right lower extremity DVT Hypertension Osteoarthritis debility after prolonged hospitalization with Covid complicated with GI bleed Dysphagia: There is concern for the demyelinating neuropathy, likely secondary to Covid 19. Seen by neurology. Patient will need further work-up as an outpatient with EMG. Status post PEG tube and feeding started. Patient tolerating liquids orally. Fever, urinary tract infection with candidiasis: Patient with recent hospitalization for similar, urine culture and blood cultures were negative at that time. Seen by infectious disease. Urine culture: Mixed capri. Patient completed 5 days of IV cefepime. Yeast in urine suspected to be colonization Acute kidney injury: Resolved with IV fluids. Tachyarrhythmia: Patient with paroxysmal tachyarrhythmia, appears to be sinus tachycardia with PACs. Continue to monitor on telemetry, possible atrial fibrillation. Continue metoprolol Normocytic anemia, anemia of chronic disease/history of GI bleed Patient started on heparin drip for acute lower extremity DVT. Monitor H&H closely and transfuse to maintain hemoglobin greater than 7. Acute lower extremity DVT Hemoglobin has been stable on heparin. Considering to transition heparin drip to oral Eliquis. Case discussed with general surgery-Dr. Barajas for IVC filter. General consensus was that patient may need transfer to a vascular surgeon for thrombectomy given the extensive DVT throughout the right lower extremity veins. Transfer to [facility] initiated. Osteoarthritis: hold off on any NSAIDs given acute kidney injury. Medical debility after prolonged hospitalization with Covid complicated with GI bleed: Physical therapy consulted, patient family reports that she is currently residing at home with her daughter. Currently bedbound but able to sit up on the edge of the bed. Family initially preferred home health but are now requesting for skilled rehab placement.
[2021-08-30] MEDS ORDERED: SODIUM CHLORIDE 0.9% 10ML INJ IV PRN (16:31)
[2021-08-30] MEDS: SUCRALFATE 1GM/10ML UCUP FT SCH ×2 (17:00→20:28)
[2021-08-30] MEDS: HEPARIN/D5W 25,000 UNIT/500 ML BAG IV SCH (18:49)
[2021-08-30] MEDS: PANTOPRAZOLE 40 MG INJ IVP SCH (20:28)
[2021-08-31 02:04] VITALS: BMI 29.2
[2021-08-31] MEDS: METOPROLOL TAR 25 MG TAB PO SCH ×2 (05:29→17:54)
[2021-08-31 06:13] LABS: Absolute Lymphocytes (CBC) 2.3 K/uL (0.7-4.9); Basophils % 0.8 % (0-1.3); Hematocrit 26.2 % (36.0-45.0); Lymphocytes % 20.2 % (15.3-44.8); MPV 7.7 fL (7.6-11.3); RBC Red Blood Cell Count 2.67 M/uL (3.86-4.86)
[2021-08-31 06:21] LABS: Potassium 4.1 mmol/L (3.5-5.1)
[2021-08-31] MEDS: JEVITY 1.5 CAL LIQUID 1,000 ML BOT FT SCH ×4 (09:00→20:14)
[2021-08-31] MEDS: SUCRALFATE 1GM/10ML UCUP FT SCH ×4 (09:00→20:13)
[2021-08-31] MEDS: PANTOPRAZOLE 40 MG INJ IVP SCH ×2 (09:00→20:16)
[2021-08-31 09:34] LABS: Anisocytosis 1+; Blood Morphology Comment NOTED (NOT SEEN); Hypochromasia 1+; Platelet Estimate ADEQ; Polychromasia 1+
[2021-08-31] MEDS ORDERED: NA CHLORIDE 0.9% 1,000 ML ONE (09:55)
[2021-08-31] MEDS ORDERED: CEFAZOLIN SODIUM 1 GM/VIAL ONE (10:00)
--- NOTE | 2021-08-31 10:33 | RAD REPORT ---
EXAM DESCRIPTION: CTAbdomen Pelvis W Contrast - 08/31/2021 9:51 am CLINICAL HISTORY: Right lower extremity extensive DVT COMPARISON: Chest For Pe Angio dated 08/31/2021; Extremity Venous Uni Ltd dated 08/28/2021 TECHNIQUE: CT of the abdomen and pelvis was performed. All CT scans are performed using dose optimization technique as appropriate and may include automated exposure control or mA/KV adjustment according to patient size. FINDINGS: Lower chest: Chronic lung changes. Reference same-day chest CT. Liver: Hepatic steatosis. Biliary: Cholecystectomy. Stomach: Gastrostomy tube. Duodenum: No significant focal abnormality. Pancreas: No significant abnormality. Spleen: No significant abnormality. Adrenal: No suspicious lesions. Kidney/ureter: No hydronephrosis. No renal calculi. Retroperitoneum: No retroperitoneal adenopathy. Vascular: Bilateral femoral vein filling defects. The right femoral vein filling defect extends into the right common iliac vein. The IVC appears patent. Atherosclerosis . Bowel: The rectal wall is circumferentially thickened. No bowel obstruction.. Normal appendix. Peritoneum: No ascites or free air. Bladder: Trace gas within the bladder. Reproductive: No adnexal masses. Bones: No acute fracture. Multilevel degenerative changes are present in the spine. Other: n/a IMPRESSION: 1. Deep venous thrombosis extending from the left common femoral vein to the right commo n iliac vein on the right side and involving the left common femoral vein on the left side. 2. Trace bladder gas which may be from instrumentation. Correlate with urinalysis. 3. Nonspecific rectal wall thickening could be secondary to proctitis.
--- NOTE | 2021-08-31 11:00 | RAD REPORT ---
EXAM DESCRIPTION: CT - Chest For Pe Angio - 08/31/2021 9:51 am CLINICAL HISTORY: Right lower extremity extensive DVT r/o PE. COMPARISON: Thorax W/ Con dated 08/22/2021 FINDINGS: Chest Wall: 11 mm right thyroid nodule. Lungs: Subpleural reticular opacities consistent with a nonspecific chronic interstitial lung disease . There is likely some component of atelectasis in lung bases . Pleura: A small left effusion. Mediastinum/jimenez: No pathologic lymphadenopathy. Pulmonary arteries/Aorta: No filling defect identified. No aortic aneurysm. Heart: No significant pericardial effusion. Normal heart size. Upper abdomen: Cholecystectomy. Bones: No acute abnormality. All CT scans are performed using dose optimization technique as appropriate and may include automated exposure control or mA/KV adjustment according to patient size. IMPRESSION: Negative for pulmonary embolism. Chronic lung changes without definite superimposed acut e process.
[2021-08-31] MEDS ORDERED: HEPARIN 5000 UNIT/ML 1 ML VIAL ONE (11:24)
[2021-08-31] MEDS ORDERED: LIDOCAINE 1% MPF 30 ML VIAL ONE (11:24)
[2021-08-31] MEDS ORDERED: NA CHLORIDE 0.9% 50 ML ONE (11:24)
[2021-08-31] MEDS ORDERED: LIDOCAINE 1% 20 ML MDV ONE (11:25)
[2021-08-31] MEDS ORDERED: LIDOCAINE 1% MPF 5 ML VIAL ONE (11:44)
[2021-08-31] MEDS ORDERED: FENTANYL CITR 100 MCG/2 ML ONE (11:44)
[2021-08-31] MEDS ORDERED: propofoL 200 MG/20 ML VIAL IV ONE ×2 (11:44→12:01)
[2021-08-31] MEDS ORDERED: NS 0.9% VIAL 10 ML ONE ×2 (11:44→12:24)
[2021-08-31] MEDS ORDERED: BUPIVACAINE 0.5% PF 10 ML VIAL ONE (12:00)
--- NOTE | 2021-08-31 12:08 | P.PN ---
Subjective Date of Service: 08/31/21 Primary Care Provider: Dr. 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 Right lower extremity swelling is improving. Physical Examination - Vital Signs Temperature: 98.6 F Blood Pressure: 133/69 Pulse: 52 Respirations: 20 Pulse Ox (%): 93 Assessment And Plan - Plan Physical exam GEN: Alert, NAD. HEENT: Sclera anicteric CV: regular rhythm, normal rate. Pulm: Clear to auscultation bilaterally. Adequate breath sounds bilaterally. ABD: Soft, nontender, nondistended. PEG tube. MSK: Right lower extremity swelling is improving. Integumentary: small superficial skin breakdown on buttocks, superficial decubitus ulcer on sacrum. Neuro: Normal speech, normal affect, moves all extremities, significant weakness in bilateral lower extremities. Diagnosis Dysphagia with solid food Urinary tract infection with candidiasis Acute kidney injury, prerenal, resolved Tachyarrhythmia Normocytic anemia, anemia of chronic disease. 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 Seen by neurology. Patient will need further work-up as an outpatient with EMG. Status post PEG tube and feeding started. She is n.p.o. for surgery today. Fever, urinary tract infection with candidiasis: Patient with recent hospitalization for similar, urine culture and blood cultures were negative at that time. Seen by infectious disease. Urine culture: Mixed capri. Patient completed 5 days of IV cefepime. Yeast in urine suspected to be colonization Acute kidney injury: Resolved with IV fluids. Tachyarrhythmia: Patient with paroxysmal tachyarrhythmia, appears to be sinus tachycardia with PACs. Continue to monitor on telemetry, possible atrial fibrillation. Continue metoprolol Normocytic anemia, anemia of chronic disease/history of GI bleed Patient started on heparin drip for acute lower extremity DVT. Monitor H&H closely and transfuse to maintain hemoglobin greater than 7. Acute lower extremity DVT Stool occult blood is positive but hemoglobin has been stable on heparin drip. Noted patient recent had a rectal bleed. EGD showed gastric erosions with specks of heme and duodenitis. CTA abdomen and pelvis shows extension of the DVT into the right common iliac and the left common femoral vein. Case discussed with general surgery-Dr. Barajas. He agrees with IVC filter placement. Transfer to tertiary center for thrombectomy denied. I was told by the vascular surgeon patient does not meet criteria for thrombectomy because of recent history of GI bleed. Stool is occult positive. Considering anticoagulating with warfarin reversal in case patient bleeds. Osteoarthritis: hold off on any NSAIDs given acute kidney injury. Medical debility after prolonged hospitalization with Covid complicated with GI bleed: Physical therapy consulted, patient lives at home with her daughter. Currently bedbound but able to sit up on the edge of the bed. Family initially preferred home health but are now requesting for skilled rehab placement.
[2021-08-31] MEDS ORDERED: ONDANSETRON 4 MG/2 ML VIAL ONE ×2 (12:22→13:21)
[2021-08-31] MEDS ORDERED: KETOROLAC 30 MG/ML INJ ONE (12:22)
[2021-08-31] MEDS ORDERED: Phenylephrine HCl 10 MG/ML 1 ML VIAL ONE (12:24)
--- NOTE | 2021-08-31 12:39 | PREOPCON ---
Date of Consultation: 08/31/2021 Reason: The patient needs a Joffre filter. History Of Present Illness: The patient is a 70-year-old female with multiple medical problems, who has had prolonged hospitalization from COVID, GI bleed and anemia. On this admission she was found t o have acute DVT in the right lower extremity. A CAT scan was done, which shows DVT in both the righ t common iliac and the left femoral vein. The patient has a GI bleeding. She is high risk for antic oagulation therefore she requires a Joffre filter placement. She is awake, alert. No fever or chills. No chest pain. No sore throat, runny nose, cough, headach es, or dizziness. Review of Systems: Otherwise unremarkable. Past Medical History: Hypertension, osteoarthritis, debility, COVID. Allergies: NONE. Social History: The patient does not smoke or drink alcohol. Family History: Noncontributory. Physical Examination: Vital Signs: Stable. She is afebrile. She is awake, alert, and oriented x3. Head and Neck: No masses. Chest: Clear. Heart: S1, S2. Abdomen: Soft. Extremities: Right leg is more edematous than the left leg. Neuro: Nonfocal. Laboratory Data: Reviewed and CT of the chest, thorax, abdomen and pelvis reviewed with the radiolog ist, as well as venous study. Assessment: A 70-year-old female with bilateral lower extremity deep venous thrombosis and gastroint estinal bleed. Recommendations: We will proceed with Hiro filter placement. The patient and daughter underst and the risks, benefits, and alternatives and agrees to procedure. /MODL Voice ID: [id number] Report ID: [id number]
--- NOTE | 2021-08-31 13:05 | P.OP ---
Voice Data [employer] Engineer: NONE,NONE Preoperative diagnosis: Bilateral LE DVT, GI bleed Postoperative diagnosis: same Primary procedure: RIJ Hiro Filter, Fluroscopy Anesthesia: General Estimated blood loss: min Specimen: none Findings: as above Complications: None Transferred to: Recovery Room Condition: Good
[2021-08-31] MEDS ORDERED: SUCCINYLCHOLINE 20 MG/ML (10 ML) IV ONE (13:30)
--- NOTE | 2021-08-31 13:41 | OP ---
Date of Procedure: 08/31/2021 Surgeon: Michele Barajas MD [employer] Developer: None. Preoperative Diagnosis: Bilateral lower extremity DVT and GI bleed. Postoperative Diagnosis: Bilateral lower extremity DVT and GI bleed. Procedure Performed: Placement of right IJ [place] filter and interpretation of intraoperative fl uoroscopy. Estimated Blood Loss: Minimal. Specimen: None. Findings: Normal anatomy. Anesthesia: General. Complications: None. Disposition: The patient tolerated the procedure, in stable condition, and taken to recovery in good general condition. Procedure In Detail: The patient was brought to the OR and placed in supine position. General anest hesia begun. The patient was prepped and draped in the usual sterile fashion. Marcaine 0.5% was inf iltrated in the right neck region. An 18-gauge needle was used to access the right IJ vein. Guidewi re was passed. Position was confirmed with fluoroscopy into the L2-L3 region with the tip. Then, a dilator and introducer were placed over the guidewire and a [place] filter was attached to the int roducer and then deployed via a pusher in the standard fashion at approximately the junction between at L2-L3 starting there and the hooks being on the body of L3 below the renal veins and above the bif urcation. Complete deployment occurred. Mobilization of the filter was seen, then introducer remove d, pressure applied, and sterile dressing applied. The patient tolerated the procedure in stable condition and taken to Recovery in good general condition. Chest x -ray has been ordered. /MODL Voice ID: [id number] Report ID: [id number]
--- NOTE | 2021-08-31 14:14 | RAD REPORT ---
EXAM DESCRIPTION: ALBERTOChiara Single View08/31/2021 2:07 pm CLINICAL HISTORY: Device placement/IVC filter placement FINDINGS: A pneumothorax is not seen status post IVC filter placement
--- NOTE | 2021-08-31 15:40 | RAD REPORT ---
EXAM DESCRIPTION: RAD - Fluoroscopy <1 Hour - 08/31/2021 2:55 pm CLINICAL HISTORY: Device placement IVC filter placement FINDINGS: Fluoroscopy time 3:00 42 seconds. Three fluoroscopic spot images are submitted. The Proced ure was performed by Dr. Barajas. IVC filter has been placed overlying the mid to lower lumbar spine
[2021-08-31] MEDS: WARFARIN SODIUM 5 MG TAB PO SCH ×2 (17:35→21:46)
[2021-08-31] MEDS ORDERED: HEPARIN/D5W 25,000 UNIT/500 ML BAG IV SCH (18:00)
[2021-08-31 21:27] LABS: Hematocrit 25.9 % (36.0-45.0)
[2021-08-31 21:29] LABS: Protime INR 1.06
[2021-09-01 00:56] LABS: Acetylchol Recept Blocking Ab <15 (<15)
[2021-09-01 04:09] LABS: Absolute Lymphocytes (CBC) 1.9 K/uL (0.7-4.9); Basophils % 0.4 % (0-1.3); MPV 7.5 fL (7.6-11.3); RBC Red Blood Cell Count 2.66 M/uL (3.86-4.86)
[2021-09-01 04:15] LABS: Protime INR 1.03
[2021-09-01 04:25] LABS: Albumin 1.4 g/dL (3.4-5.0); Bilirubin Total 0.2 mg/dL (0.2-1.0); Potassium 4.2 mmol/L (3.5-5.1); Protein, Total 5.6 g/dL (6.4-8.2)
[2021-09-01] MEDS: METOPROLOL TAR 25 MG TAB PO SCH ×2 (05:27→17:28)
[2021-09-01] MEDS: PANTOPRAZOLE 40 MG INJ IVP SCH ×2 (08:22→22:14)
[2021-09-01] MEDS: SUCRALFATE 1GM/10ML UCUP FT SCH ×4 (08:23→22:19)
[2021-09-01] MEDS: JEVITY 1.5 CAL LIQUID 1,000 ML BOT FT SCH ×4 (08:25→22:14)
--- NOTE | 2021-09-01 11:53 | P.PN ---
Subjective Date of Service: 09/01/21 Primary Care Provider: Dr. 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 She is lying in bed comfortably. Right lower extremity swelling is better. She denies any pain. Physical Examination - Vital Signs Temperature: 97.8 F Blood Pressure: 98/61 Pulse: 93 Respirations: 16 Pulse Ox (%): 100 Assessment And Plan - Plan Physical exam GEN: Alert, NAD. HEENT: Sclera anicteric CV: regular rhythm, normal rate. Pulm: Clear to auscultation bilaterally. Adequate breath sounds bilaterally. ABD: Soft, nontender, nondistended. PEG tube. MSK: Right lower extremity swelling is improving. Integumentary: small superficial skin breakdown on buttocks, superficial decubitus ulcer on sacrum. Neuro: Normal speech, normal affect, moves all extremities, Motor: 4/5 in B/L LE. Diagnosis Dysphagia with solid food Urinary tract infection with candidiasis Acute kidney injury, prerenal, resolved Tachyarrhythmia Normocytic anemia, anemia of chronic disease. 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 Seen by neurology. Patient will need further work-up as an outpatient with EMG. Status post PEG tube and feeding started. Feeding started. Fever, urinary tract infection with candidiasis: Patient with recent hospitalization for similar, urine culture and blood cultures were negative at that time. Seen by infectious disease. Urine culture: Mixed capri. Patient completed 5 days of IV cefepime. Yeast in urine suspected to be colonization Acute kidney injury: Resolved with IV fluids. Tachyarrhythmia: Patient with paroxysmal tachyarrhythmia, appears to be sinus tachycardia with PACs. Continue to monitor on telemetry, possible atrial fibrillation. Continue metoprolol Normocytic anemia, anemia of chronic disease/history of GI bleed Patient started on heparin drip for acute lower extremity DVT. Monitor H&H closely and transfuse to maintain hemoglobin greater than 7. Acute lower extremity DVT Stool occult blood positive but hemoglobin has been stable on heparin drip. H/o recent rectal bleed. EGD showed gastric erosions with specks of heme and duodenitis. CTA abdomen and pelvis shows extension of the DVT into the right common iliac and the left common femoral vein. Status post IVC filter placement. According to Dr. Barajas, her blood was clotting easily and he suspect hypercoagulable state. Hypercoagulable studies ordered. Continue heparin drip. Patient started on warfarin. Monitor PT and INR. Target INR of 2.0. She was denied transfer to tertiary center for thrombectomy. I was told by the vascular surgeon patient does not meet criteria for thrombectomy because of recent history of GI bleed. Stool is occult positive. Osteoarthritis: hold off on any NSAIDs given acute kidney injury. Medical debility after prolonged hospitalization with Covid complicated with GI bleed: Patient is receiving physical therapy. Patient lives at home with her daughter. Currently bedbound but able to sit up on the edge of the bed. Family initially preferred home health but are now requesting for skilled rehab placement.
[2021-09-01] MEDS: WARFARIN SODIUM 5 MG TAB PO SCH (17:29)
[2021-09-01] MEDS: ENOXAPARIN 80 MG/0.8 ML SQ SCH (23:47)
[2021-09-02] MEDS: METOPROLOL TAR 25 MG TAB PO SCH ×2 (05:41→19:25)
[2021-09-02 06:05] LABS: Hematocrit 24.6 % (36.0-45.0)
[2021-09-02 06:22] LABS: Protime INR 1.2
[2021-09-02] MEDS: SUCRALFATE 1GM/10ML UCUP FT SCH ×4 (09:00→21:00)
[2021-09-02] MEDS: ENOXAPARIN 80 MG/0.8 ML SQ SCH ×2 (09:00→21:44)
[2021-09-02] MEDS: JEVITY 1.5 CAL LIQUID 1,000 ML BOT FT SCH ×4 (09:00→21:00)
[2021-09-02] MEDS: PANTOPRAZOLE 40 MG INJ IVP SCH ×2 (09:00→21:44)
--- NOTE | 2021-09-02 12:34 | P.PN ---
Subjective Date of Service: 09/02/21 Primary Care Provider: Dr. 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 Her right lower extremity swelling continue to improve. She denies any pain. She denies any melena or bright red blood per rectum. Physical Examination - Vital Signs Temperature: 98.0 F Blood Pressure: 103/56 Pulse: 92 Respirations: 20 Pulse Ox (%): 98 Assessment And Plan - Plan Physical exam GEN: Alert, NAD. HEENT: Sclera anicteric CV: regular rhythm, normal rate. Pulm: Clear to auscultation bilaterally. Adequate breath sounds bilaterally. ABD: Soft, nontender, nondistended. PEG tube. MSK: Right lower extremity swelling is improving. Integumentary: small superficial skin breakdown on buttocks, superficial decubitus ulcer on sacrum. Neuro: Normal speech, normal affect, Motor: 4/5 in B/L LE. Diagnosis Dysphagia with solid food Urinary tract infection with candidiasis Acute kidney injury, prerenal, resolved Tachyarrhythmia Normocytic anemia, anemia of chronic disease. 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 Seen by neurology. Patient will need further work-up as an outpatient with EMG. Status post PEG tube. Patient is tolerating feeding. Fever, urinary tract infection with candidiasis: Patient with recent hospitalization for similar, urine culture and blood cultures were negative at that time. Seen by infectious disease. Urine culture: Mixed capri. Patient completed 5 days of IV cefepime. Yeast in urine suspected to be colonization Acute kidney injury: Resolved with IV fluids. Tachyarrhythmia: Patient with paroxysmal tachyarrhythmia, appears to be sinus tachycardia with PACs. Continue to monitor on telemetry, possible atrial fibrillation. Continue metoprolol Normocytic anemia, anemia of chronic disease/history of GI bleed Heparin drip changed to Lovenox. Hemoglobin level between 7.9 and 8.5. No active bleeding. Monitor H&H closely and transfuse to maintain hemoglobin greater than 7. Acute lower extremity DVT Stool occult blood positive but hemoglobin has been relatively stable. H/o recent rectal bleed. EGD showed gastric erosions with specks of heme and duodenitis. CTA abdomen and pelvis shows extension of the DVT into the right common iliac and the left common femoral vein. Status post IVC filter placement. According to Dr. Barajas, her blood was clotting easily and he suspect hypercoagulable state. Hypercoagulable studies ordered. Heparin drip changed to full dose Lovenox bridge. Continue warfarin. Monitor PT and INR. Target INR of 2.0. She was denied transfer to tertiary center for thrombectomy. I was told by the vascular surgeon patient does not meet criteria for thrombectomy because of recent history of GI bleed. Osteoarthritis: hold off on any NSAIDs given acute kidney injury. Medical debility after prolonged hospitalization with Covid complicated with GI bleed: Patient is receiving physical therapy. Patient lives at home with her daughter. Currently bedbound but able to sit up on the edge of the bed. Family initially preferred home health but are now requesting for skilled rehab placement. Continue PT.
--- NOTE | 2021-09-02 13:38 | P.PN ---
Subjective Date of Service: 09/01/21 Primary Care Provider: Dr. 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, s/p PEG tube, tolerating TFs Subjective: Improving (She reports tolerating bolus TFs well.) Review of Systems Unremarkable Physical Examination - Vital Signs Temperature: 98.0 F Blood Pressure: 103/56 Pulse: 92 Respirations: 20 Pulse Ox (%): 98 - Physical Exam General: Alert, In no apparent distress, Oriented x3, Cooperative HEENT: Atraumatic, Normocephalic, PERRLA, EOMI Neck: Supple Respiratory: Normal air movement Cardiovascular: Normal pulses Gastrointestinal: Soft and benign, No tenderness, No rebound, No guarding Neurological: Normal speech Assessment And Plan - Current Problems (Diagnosis) (1) Dysphagia Current Visit: Yes Status: Acute (2) Demyelinating disease Current Visit: Yes Status: Acute (3) Neuropathy Current Visit: Yes Status: Acute (4) Protein calorie malnutrition Current Visit: Yes Status: Acute - Plan REC: 1) continue TFs 2) water boluses
--- NOTE | 2021-09-02 13:40 | P.PN ---
Subjective Date of Service: 09/02/21 Primary Care Provider: Dr. 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 Pre-albumin low at 5.8 on 08-29-21.) Review of Systems Unremarkable Physical Examination - Vital Signs Temperature: 98.0 F Blood Pressure: 103/56 Pulse: 92 Respirations: 20 Pulse Ox (%): 98 - Physical Exam General: Alert, In no apparent distress, Oriented x3, Cooperative, Disheveled HEENT: Atraumatic, Normocephalic, PERRLA, EOMI Cardiovascular: Normal pulses Gastrointestinal: Soft and benign, No tenderness, No rebound, No guarding Neurological: Normal speech Assessment And Plan - Current Problems (Diagnosis) (1) Dysphagia Current Visit: Yes Status: Acute (2) Demyelinating disease Current Visit: Yes Status: Acute (3) Neuropathy Current Visit: Yes Status: Acute (4) Protein calorie malnutrition Current Visit: Yes Status: Acute - Plan REC: 1) continue TFs 2) water boluses 3) check pre-albumin on 09-05-21
[2021-09-02] MEDS: WARFARIN SODIUM 5 MG TAB PO SCH (16:27)
[2021-09-03] MEDS: METOPROLOL TAR 25 MG TAB PO SCH ×2 (05:47→17:18)
[2021-09-03 05:52] LABS: Hematocrit 24.4 % (36.0-45.0)
[2021-09-03 05:58] LABS: Protime INR 1.21
[2021-09-03] MEDS: PANTOPRAZOLE 40 MG INJ IVP SCH ×2 (09:08→20:19)
[2021-09-03] MEDS: JEVITY 1.5 CAL LIQUID 1,000 ML BOT FT SCH ×4 (09:09→20:18)
[2021-09-03] MEDS: ENOXAPARIN 80 MG/0.8 ML SQ SCH ×2 (09:09→20:18)
[2021-09-03] MEDS: SUCRALFATE 1GM/10ML UCUP FT SCH ×4 (09:09→20:18)
[2021-09-03] MEDS ORDERED: NA CHLORIDE 0.9% 250 ML IV SCH (11:00)
[2021-09-03] MEDS ORDERED: NA CHLORIDE 0.9% 250 ML ONE (13:24)
--- NOTE | 2021-09-03 14:06 | P.PN ---
Subjective Date of Service: 09/03/21 Primary Care Provider: Dr. 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 Her right lower extremity swelling continue to improve. She denies any pain. She denies any melena or bright red blood per rectum. Patient functional performance status is gradually improving. Physical Examination - Vital Signs Temperature: 98.8 F Blood Pressure: 122/66 Pulse: 96 Respirations: 18 Pulse Ox (%): 96 Assessment And Plan - Plan Physical exam GEN: Alert, NAD. HEENT: Sclera anicteric CV: regular rhythm, normal rate. Pulm: Clear to auscultation bilaterally. Adequate breath sounds bilaterally. ABD: Soft, nontender, nondistended. PEG tube. MSK: Right lower extremity swelling is improving. Integumentary: small superficial skin breakdown on buttocks, superficial decubitus ulcer on sacrum. Neuro: Normal speech, normal affect, Motor: 4/5 in B/L LE. Diagnosis Dysphagia with solid food Urinary tract infection with candidiasis Acute kidney injury, prerenal, resolved Tachyarrhythmia Normocytic anemia, anemia of chronic disease. 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 Seen by neurology. Patient will need further work-up as an outpatient with EMG. Status post PEG tube. Patient is tolerating feeding. Fever, urinary tract infection with candidiasis: Patient with recent hospitalization for similar, urine culture and blood cultures were negative at that time. Seen by infectious disease. Urine culture: Mixed capri. Patient completed 5 days of IV cefepime. Yeast in urine suspected to be colonization Acute kidney injury: Resolved with IV fluids. Tachyarrhythmia: Patient with paroxysmal tachyarrhythmia, appears to be sinus tachycardia with PACs. Continue to monitor on telemetry, possible atrial fibrillation. Continue metoprolol Normocytic anemia, anemia of chronic disease/history of GI bleed Status post Heparin drip. Patient started on Lovenox bridge. Hemoglobin is borderline low. No active bleeding. Will transfuse 1 unit PRBC. Acute lower extremity DVT Stool occult blood positive but hemoglobin has been relatively stable. H/o recent rectal bleed. EGD showed gastric erosions with specks of heme and duodenitis. CTA abdomen and pelvis shows extension of the DVT into the right common iliac and the left common femoral vein. Status post IVC filter placement. According to Dr. Barajas, her blood was clotting easily and he suspect hypercoagulable state. Hypercoagulable studies ordered. Heparin drip changed to full dose Lovenox bridge. Continue warfarin. Monitor PT and INR. Dose warfarin to target INR of 2.0. She was denied transfer to tertiary center for thrombectomy. I was told by the vascular surgeon patient does not meet criteria for thrombectomy because of recent history of GI bleed. Osteoarthritis: hold off on any NSAIDs given acute kidney injury. Medical debility after prolonged hospitalization with Covid complicated with GI bleed: Patient is receiving physical therapy. Patient lives at home with her daughter. Currently bedbound but able to sit up on the edge of the bed. Patient accepted to [facility] for skilled rehab Continue PT.
--- NOTE | 2021-09-03 14:16 | P.DS ---
Admission Date: 08/22/21 Discharge Date: 09/03/21 Primary Care Provider: Dr. 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 IVC Filter placement. Brief History of Present Illness: 70-year-old -[place] female with history of hypertension, osteoarthritis, medical debility after prolonged hospitalization from Covid and GI bleed and anemia of chronic disease presented to the emergency department for trouble swallowing. Daughter at bedside reported that the patient has had trouble swallowing solids for the past 2 weeks but has been getting worse. Patient had been tolerating liquids without difficulty. Patient initially without other complaints but noted to be febrile and tachycardic upon arrival to the emergency department. Patient was evaluated further in the emergency department and found to have urinary tract infection with microscopic analysis demonstrating greater than 50 bacteria and too numerous to count white blood cell, also many yeast noted on microscopic analysis. Other labs significant for white blood cell count 9.6 hemoglobin 9.8 hematocrit 29.4 potassium 3.3 creatinine 1.31 GFR 48 glucose 125 lactic acid 2.3 BNP 207 patient does not appear septic at this time Covid and influenza test negative CT soft tissue the neck negative for acute findings. CT head without contrast negative for acute findings, chest x-ray demonstratesd mild basilar lung opacities are present greater on the left moderately improved since comparison, CT chest demonstrates emphysematous change present throughout the lungs with fibrotic pattern, no acute intrathoracic process noted. Patient admitted for further management. Hospital Course: Diagnosis Dysphagia with solid food Urinary tract infection with candidiasis Acute kidney injury, prerenal, resolved Tachyarrhythmia Normocytic anemia, anemia of chronic disease. 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 Seen by neurology. MRI of the brain negative Patient will need further work-up as an outpatient with EMG. Status post PEG tube. Patient is tolerating feeding. She tolerate liquid diet but not solid. Fever, urinary tract infection with candidiasis: Seen by infectious disease. Urine culture: Mixed capri. Patient completed 5 days of IV cefepime. Yeast in urine considered to be colonization Acute kidney injury: Resolved with IV fluids. Tachyarrhythmia: Patient with paroxysmal tachyarrhythmia, appears to be sinus tachycardia with PACs. Possible atrial fibrillation. Treated with metoprolol. Normocytic anemia, anemia of chronic disease/history of GI bleed Status post Heparin drip. Patient started on Lovenox bridge and Coumadin for DVT. Hemoglobin has been borderline low. No active bleeding, Stool hemoccult positive. Patient transfused 1 unit PRBC. Acute lower extremity DVT Stool occult blood positive but hemoglobin has been relatively stable. H/o recent rectal bleed. EGD showed gastric erosions with specks of heme and duodenitis. CTA abdomen and pelvis showed extension of the LE DVT into the right common iliac and the left common femoral vein. CTA thorax negative for pulmonary embolism. Status post IVC filter placement. According to Dr. Barajas, her blood was clotting easily and he suspect hypercoagulable state. Hypercoagulable studies ordered and the results are pending. Heparin drip changed to full dose Lovenox bridge. On warfarin given its easy reversibility if patient bleeds. Dosing warfarin to target INR of 2.0. She was denied transfer to tertiary center for thrombectomy. I was told by the vascular surgeon patient does not meet criteria for thrombectomy because of recent history of GI bleed. Osteoarthritis: Held NSAIDs given acute kidney injury. Medical debility after prolonged hospitalization with Covid complicated with GI bleed: Patient is receiving physical therapy. Patient lives at home with her daughter. Currently able to take some steps with support. Patient accepted to [facility] for skilled rehab Vital Signs/Physical Exam: Temp Pulse Resp BP Pulse Ox 98.8 F 96 H 18 122/66 96 09/03/21 14:07 09/03/21 14:07 09/03/21 14:07 09/03/21 14:07 09/03/21 14:07 General: Alert, In no apparent distress, Oriented x3 HEENT: PERRLA, Mucous membr. moist/pink Neck: JVD not distended Respiratory: Clear to auscultation bilaterally, Normal air movement Cardiovascular: Regular rate/rhythm, Normal S1 S2, No murmurs, Edema (Right lower extremity) Gastrointestinal: Soft and benign, Non-distended Musculoskeletal: Swelling (Right lower extremity improved) Integumentary: No rashes, No erythema Neurological: Other (Bilateral lower extremity weakness, Lower extremities motor 4/5.) Laboratory Data at Discharge: WBC 12.20 K/uL (4.3-10.9) H 09/01/21 03:53 Hgb 7.7 g/dL (12.0-15.0) L 09/03/21 05:37 Hct 24.4 % (36.0-45.0) L 09/03/21 05:37 Plt Count 276 K/uL (152-406) 09/01/21 03:53 PT 13.9 SECONDS (9.5-12.5) H 09/03/21 05:37 INR 1.21 09/03/21 05:37 APTT 26.5 SECONDS (24.3-36.9) 09/03/21 05:37 Sodium 141 mmol/L (136-145) 09/01/21 03:53 Potassium 4.2 mmol/L (3.5-5.1) 09/01/21 03:53 BUN 18 mg/dL (7-18) 09/01/21 03:53 Creatinine 1.02 mg/dL (0.55-1.3) 09/01/21 03:53 Glucose 98 mg/dL (74-106) 09/01/21 03:53 Magnesium 1.9 mg/dL (1.8-2.4) 08/29/21 02:51 Total Bilirubin 0.2 mg/dL (0.2-1.0) 09/01/21 03:53 AST 41 U/L (15-37) H 09/01/21 03:53 ALT 28 U/L (12-78) 09/01/21 03:53 Alkaline Phosphatase 100 U/L (45-117) 09/01/21 03:53 Triglycerides 236 mg/dL (<150) H 08/23/21 06:21 Cholesterol 178 mg/dL (<200) 08/23/21 06:21 HDL Cholesterol 14 mg/dL (40-60) L 08/23/21 06:21 Cholesterol/HDL Ratio 12.71 08/23/21 06:21 Home Medications: Enoxaparin Sodium [Lovenox 80 MG INJ*] 80 mg SQ Q12HR syr 09/03/21 Jevity 1.5 Abdi Liquid 237 ml FT QID bot 09/03/21 Metoprolol Tartrate [Lopressor*] 25 mg PO BID 6AM 6PM tab 09/03/21 Sucralfate [Carafate*] 10 ml FT QID ucup 09/03/21 Warfarin Sodium [Coumadin*] 7.5 mg PO DAILY 5 PM tab 09/03/21 Followup: Wolfgang Noriega MD [Primary Care Provider] - Time spent managing pt's care (in minutes): 42
[2021-09-03] MEDS ORDERED: WARFARIN SODIUM 2.5 MG TAB PO SCH (17:00)
[2021-09-03] MEDS ORDERED: WARFARIN SODIUM 5 MG TAB PO SCH (17:00)
[2021-09-03 19:17] LABS: Hematocrit 28.7 % (36.0-45.0)
[2021-09-03 20:39] VITALS: BP 120/57; TEMP 97.3; O2SAT 99
[2021-09-07 14:48] LABS: Protein C Antigen 78 % (70-140)
[2021-09-10 14:33] LABS: Prothrombin Gene Analysis Test NEGATIVE
== END 2021-09-03 23:05 | DRG 391 ==
LOC: ER 15:13 → 2ND 20:56
PROVIDERS: ADMIT Hospitalist; ATTEND Internal Medicine
PROC: 0DB68ZX Excision of Stomach, Via Natural or Artificial Opening Endoscopic, Diagnostic (ICD-10-PCS; 2021-08-27)
PROC: 0DH63UZ Insertion of Feeding Device into Stomach, Percutaneous Approach (ICD-10-PCS; principal; 2021-08-27 12:30)
PROC: 06H03DZ Insertion of Intraluminal Device into Inferior Vena Cava, Percutaneous Approach (ICD-10-PCS; 2021-08-31)
DX: R13.10 Dysphagia, unspecified (principal); E43 Unspecified severe protein-calorie malnutrition; K29.71 Gastritis, unspecified, with bleeding; K29.81 Duodenitis with bleeding; K25.4 Chronic or unspecified gastric ulcer with hemorrhage; N17.9 Acute kidney failure, unspecified; B37.49 Other urogenital candidiasis; I82.421 Acute embolism and thrombosis of right iliac vein; I82.412 Acute embolism and thrombosis of left femoral vein; I10 Essential (primary) hypertension; M19.90 Unspecified osteoarthritis, unspecified site; R53.81 Other malaise; E78.5 Hyperlipidemia, unspecified; R00.0 Tachycardia, unspecified; D63.8 Anemia in other chronic diseases classified elsewhere; U09.9 Post COVID-19 condition, unspecified; G62.89 Other specified polyneuropathies; Z68.29 Body mass index [BMI] 29.0-29.9, adult; Z20.822 Contact with and (suspected) exposure to COVID-19
CPT/HCPCS: 0240U; 36415; 36430; 70450; 70491; 70544; 70549; 70553; 71045; 71260; 71275; 74177; 74230; 76000; 80048; 80053; 80061; 80076; 81003; 81015; 81240; 81241; 82274; 82947; 83090; 83519; 83605; 83735; 83880; 84132; 84134; 84145; 84238; 84439; 84443; 84484; 85014; 85018; 85025; 85049; 85300; 85302; 85305; 85306; 85610; 85730; 86147; 86850; 86900; 86901; 86922; 87040; 87086; 87088; 88305; 88312; 92610; 92611; 93005; 93306; 93880; 93971; 96365; 96366; 97110; 97161; 97530; 99285; A9577; C9113; J0330; J0690; J0692; J1644; J2270; J2370; J2405; J2704; J3010; J3475; J3480; J7030; J7050; J7120; P9016; Q9967; U0003

== ENCOUNTER 2022-01-21 11:07 | Day surgery (SDC) | payer OTHER ==
[2022-01-18 14:18] LABS: Protime INR 1.13
[2022-01-18 14:26] LABS: Hematocrit 33.2 % (36.0-45.0); Lymphocytes % 35.3 % (15.3-44.8); MPV 8.6 fL (7.6-11.3); RBC Red Blood Cell Count 3.54 M/uL (3.86-4.86)
[2022-01-18 14:36] LABS: Potassium 3.4 mmol/L (3.5-5.1)
[~2022-01-21 11:07] MED LIST: HEPA 1000U/500MLS 1,000 UNIT/500 ML BAG IV ONE
[2022-01-21] MEDS ORDERED: NA CHLORIDE 0.9% 500 ML ONE (11:11)
[2022-01-21 11:43] VITALS: O2SAT 100
[2022-01-21] MEDS ORDERED: HEPA 1000U/500MLS 2,000 UNIT/1,000 ML BAG IV ONE (11:44)
[2022-01-21] MEDS ORDERED: FENTANYL CITR 100 MCG/2 ML ONE (11:44)
[2022-01-21] MEDS ORDERED: MIDAZOLAM HCL 2 MG/2 ML INJ ONE (11:44)
[2022-01-21] MEDS ORDERED: VERAPAMIL HCL 10 MG/4 ML VIAL IV ONE (11:45)
[2022-01-21] MEDS ORDERED: NITROGLYCERIN 100 MCG/ML SYR (for cath lab use only) IV ONE (11:46)
[2022-01-21] MEDS ORDERED: ATROPINE SULF 1 MG/10 ML SYR IV ONE (11:46)
[2022-01-21] MEDS ORDERED: HEPARIN 10,000 UNIT/10 ML VIAL IV ONE (11:46)
[2022-01-21 14:01] VITALS: BP 143/88
--- NOTE | 2022-01-21 16:03 | OP ---
Date of Procedure: 01/21/2022 Surgeon: EMILIANA KLEIN Procedure Performed: Selective coronary angiogram. Indications: 1. Drop in ejection fraction. 2. V-tach. Access: Right radial artery 6-[place] closed with TR band. Complications: None. Bleeding: Less than 10 mL. Anesthesia: Total sedation time was 50 minutes. Description Of Procedure: After risks, benefits, and alternatives were explained, the patient agreed to procedure and signed informed consent. The patient was brought into cardiac catheterization laboratory, prepped and draped in usual sterile fashion. We gave fentanyl and Versed in incremental doses to achieve adequate moderate sedation. Then, we accessed right radial artery using pediatric micropuncture kit. We placed a 6-[place] Slender sheath and took a 5- [place] 4.0 catheter into the aortic root, engaged left main and right coronary artery, took standard views and removed the catheter and sheath, placed TR band with good hemostasis. Findings: 1. Left main; very large, normal. 2. LAD; fairly large vessel, normal. Normal diagonal branches. 3. Left circumflex; very large vessel, dominant, and normal. 4. RCA; small, nondominant and normal. Conclusion: Normal coronary arteries. Plan And Recommendation: Guideline directed medical therapy for systolic heart failure. SR/MODL Voice ID: [id number] Report ID: [id number] MTDD
== END 2022-01-21 14:20 | disposition home or self-care (01) ==
LOC: CCL 11:07
PROVIDERS: ATTEND Internal Medicine
DX: I47.2 Ventricular tachycardia (principal); I11.0 Hypertensive heart disease with heart failure; I50.22 Chronic systolic (congestive) heart failure; I82.402 Acute embolism and thrombosis of unspecified deep veins of left lower extremity; Z79.01 Long term (current) use of anticoagulants; Z79.899 Other long term (current) drug therapy; Z20.822 Contact with and (suspected) exposure to COVID-19
CPT/HCPCS: 85025; 80048; 36415; 85610; 85730; 93454; U0003; C1893; J2250; J3010; J1644 ×3; J7040; Q9967

== ENCOUNTER 2022-01-31 12:52 | Inpatient (IN) | payer OTHER, SELFPAY ==
--- OUTSIDE RECORDS SUMMARY | 2022-01-31 12:59 | XMS REPORT | Continuity of Care Document ---
:1950 Author Organization [facility] t Address [address] [place] [address] Care Team Providers Name Role Phone Juancho Perez MD Primary Care Physician JUANCHO PEREZ Attending Clinician Unavailable Juancho Perez MD Attending Clinician JUANCHO PEREZ Admitting Clinician Unavailable Payers Payer Name Policy Type Policy Number Effective Date Expiration Date Aaron francisco Proximagen [facility] [id number] 2021 00:00:00 Problems Condition Condition Condition Status Onset Resolution Last Treating Co mments Source Name Details Category Date Date Treatment Clinician Date Pneumonia Pneumonia Disease Active [facility] - COVID-19 COVID-19 00:00: Medica l virus virus 00 Center Allergies, Adverse Reactions, Alerts Allergy Allergy Status Severity Reaction(s) Onset Inactive Treating Comm ents Source Name Type Date Date Clinician NO KNOWN Allergy Active [facility] Social History Social Habit Start Date Stop Date Quantity Comments Source History SDOH [facility] Std Drinks [facility] Center History SDOH [facility] Binge Medical [facility] History SDOH [facility] - Alcohol Comment Medical C enter Alcohol intake 2021-06-29 2021-06-[address] [facility] - 00:00:00 00:00:00 non-drinker Medical Cente r (finding) History SDOH 2021-06-29 2021-06-[address] [facility] - Alcohol Frequency 00:00:00 00:00:00 Medical Center Sex Assigned At [address] Cristine kes - 00:00:00 00:00:00 Medical Center Smoking Status Start Date Stop Date Source Never smoker [facility] edical [place] Medications Ordered Filled Start Stop Current Ordering Indication Dosage Frequency Signature Comments Components Source Medication Medication Date Date Medication? Clinician (SIG) Name Name lisinopriL 2020- No 2.5mg QD Take [address] [facility] (PRINIVIL,Z 07-12 10-30 tablet [facility] - ESTRIL) 2.5 00:00: 23:59 (2.5 mg Me dical MG tablet 00 :00 total) by Cente r mouth daily for 30 days. lisinopriL 2020- No 2.5mg QD Take [address] [facility] [address] (PRINIVIL,Z 9- 10-30 tablet [facility] - ESTRIL) 2.5 00:00: 23:59 (2.5 mg Me dical MG tablet 00 :00 total) by Cente r mouth daily for 30 days. lisinopriL 2020- No 40mg QD Take [address] [facility] (PRINIVIL,Z 07-11 by mouth José Miguel es - ESTRIL) 40 16:09: 00:00 daily. Medi [facility]ott MG tablet 43 :00 Center lisinopriL No 40mg QD Take [address] [facility] (PRINIVIL,Z 07-11 by mouth José Miguel es - ESTRIL) 40 16:09: 00:00 daily. Medi scott MG tablet 43 :00 Center pantoprazol 2020- No 40mg Q.5D Take [address] [facility] e 07-11 tablet (40 [facility] - (PROTONIX) 00:00: 23:59 mg total) M edical 40 MG 00 :00 by mouth 2 Center tablet (two) times daily for 60 days. pantoprazol 2020- No 40mg Q.5D Take [address] [facility] e 07-11 tablet (40 [facility] - (PROTONIX) 00:00: 23:59 mg total) M edical 40 MG 00 :00 by mouth 2 Center tablet (two) times daily for 60 days. albuterol-i 2020- No 1{puff} Inhale [address] pratropium - 10-29 puff by [facility] - (COMBIVENT 00:00: 23:59 mouth via M edical RESPIMAT) 00 :00 inhaler Center 20-100 every 6 mcg/actuati (six) on Mist hours as inhaler needed for Wheezing or Shortness of Breath for up to 30 days. insulin 2020- No 10U QD Inject [address] glargine 9- 10-29 Units [facility] - (LANTUS) 00:00: 23:59 subcutaneo Me dical 100 unit/mL 00 :00 usly every Ce nter injection morning for 30 days Use as directed. albuterol-i 2020- No 1{puff} Inhale [address] [facility] pratropium - 10- puff by [facility] - (COMBIVENT 00:00: 23:59 mouth via M edical RESPIMAT) 00 :00 inhaler Center 20-100 every 6 mcg/actuati (six) on Mist hours as inhaler needed for Wheezing or Shortness of Breath for up to 30 days. insulin 2020- No 10U QD Inject [address] glargine 07-11 10-29 Units [facility] - (LANTUS) 00:00: 23:59 subcutaneo Me dical 100 unit/mL 00 :00 usly every Ce nter injection morning for 30 days Use as directed. methylPREDN 2020- No follow [facility] ISolone 07-11 package [facility] - (MEDROL 00:00: 23:59 directions Med ical DOSEPACK) 4 00 :00 . Center mg tablet benzonatate 2020- No 100mg Take [address] (TESSALON) 07-11 capsule [facility] - 100 MG 00:00: 23:59 (100 mg Medical capsule 00 :00 total) by Center mouth 3 (three) times daily as needed for Cough for up to 7 days. methylPREDN 2020- No follow [facility] ISolone 07-11 package [facility] - (MEDROL 00:00: 23:59 directions Med ical DOSEPACK) 4 00 :00 . Center mg tablet benzonatate 2020- No 100mg Take [address] (TESSALON) 07-11 capsule [facility] - 100 MG 00:00: 23:59 (100 mg Medical capsule 00 :00 total) by Center mouth 3 (three) times daily as needed for Cough for up to 7 days. azithromyci 2020- No 500mg QD Take [address] n 07-11 tablet [facility] - (ZITHROMAX) 00:00: 23:59 (500 mg Me dical 500 MG 00 :00 total) by Center tablet mouth daily for 5 days. azithromyci 2020- No 500mg QD Take [address] n 07-11 tablet [facility] - (ZITHROMAX) 00:00: 23:59 (500 mg Me dical 500 MG 00 :00 total) by Center tablet mouth daily for 5 days. Vital Signs Vital Name Observation Time Observation Value Comments Source WEIGHT 2021-06-29 10:00:00 89.359 kg HEIGHT 2021-06-28 22:00:00 167.6 cm WEIGHT 2021-06-28 22:00:00 90.311 kg WEIGHT 2021-06-29 10:00:00 89.359 kg HEIGHT 2021-06-28 22:00:00 167.6 cm WEIGHT 2021-06-28 22:00:00 90.311 kg Systolic blood 2021-07-11 16:00:00 139 mm[Hg] [facility] Diastolic blood 2021-07-11 16:00:00 75 mm[Hg] [facility] Heart rate 2021-07-11 16:00:00 106 /min [facility] Body temperature 2021-07-11 16:00:00 36.83 Renetta [facility] Respiratory rate 2021-07-11 16:00:00 18 /min [facility] Oxygen saturation in 2021-07-11 16:00:00 96 /min [facility] Arterial blood by Medical nter Pulse oximetry Body weight 2021-06-29 10:00:00 89.359 kg [facility] BMI 2021-06-29 10:00:00 31.80 kg/m2 [facility] Body height 2021-06-28 22:00:00 167.6 cm [facility] Procedures Procedure Date / Time Performed [facility]forming [facility]UCOSE MET[facility] 2021-07-11 15:57:00 James Perez [facility] POCT-GLUCOSE METER 2021-07-11 11:37:00 [facility] 2021-07-11 06:08:00 James Perez [facility] MAGNESIUM 2021-07-11 04:18:00 Fuentes Garcia [facility] CBC W/PLT COUNT & AUTO 2021-07-11 04:18:00 James Perez [facility] COMPREHENSIVE METABOLIC 2021-07-11 04:18:00 James Perez [facility] CBC W/PLT COUNT & AUTO 2021-07-11 04:18:00 James Perez [facility] POCT-GLUCOSE METER 2021-07-10 20:33:00 James Perez [facility] POCT-GLUCOSE METER 2021-07-10 16:57:00 James Perez [facility] POCT-GLUCOSE METER 2021-07-10 11:38:00 James Perze [facility] XR CHEST 1 VIEW PORTABLE 2021-07-10 08:16:[address] [facility] POCT-GLUCOSE METER 2021-07-10 06:08:00 James Perez [facility] MAGNESIUM 2021-07-10 04:26:00 James Perez [facility] CBC W/PLT COUNT & AUTO 2021-07-10 04:26:00 [facility]PREHENSIVE METABOLIC 2021-07-10 04:26:00 James Perez I [facility] CBC W/PLT COUNT & AUTO 2021-07-10 04:26:00 James Perez [facility] POCT-GLUCOSE METER 2021-07-09 20:12:00 [facility] PO[facility]SE METER 2021-07-09 17:01:00 [facility] POCT-GLUCOSE METER 2021-07-09 13:55:00 [facility] POCT-GLUCOSE METER 2021-07-09 06:27:00 [facility] PREPARE LEUKO-REDUCED RBC 2021-07-08 23:54:00 [facility] POCT-GLUCOSE METER 2021-07-08 20:10:00 [facility] POCT-GLUCOSE METER 2021-07-08 15:26:00 James [facility] POCT-GLUCOSE METER 2021-07-08 11:24:00 [facility] POCT-GLUCOSE METER 2021-07-08 06:25:00 [facility] CBC W/PLT COUNT & AUTO 2021-07-08 04:41:00 James Perez [facility] COMPREHENSIVE METABOLIC 2021-07-08 04:41:00 James Perez I [facility] MAGNESIUM 2021-07-08 04:41:00 James Perez [facility] CBC W/PLT COUNT & AUTO 2021-07-08 04:41:00 [facility] POCT-GLUCOSE METER 2021-07-07 21:46:00 [facility] POCT-GLUCOSE METER 2021-07-07 15:09:00 James Perez [facility] POCT-GLUCOSE METER 2021-07-07 11:47:00 [facility] POCT-GLUCOSE METER 2021-07-07 06:19:00 [facility] CBC W/PLT COUNT & AUTO 2021-07-07 06:12:00 [facility] 2021-07-07 06:12:00 James Perez [facility] COMPREHENSIVE METABOLIC 2021-07-07 06:12:00 James Perez [facility] CBC W/PLT COUNT & AUTO 2021-07-07 06:12:00 [facility] TRANSFUSE LEUKO-REDUCED 2021-07-07 05:33:00 James Perez [facility] RED BLOOD CELLS [facility] TRANSFUSE LEUKO-REDUCED 2021-07-06 23:14:00 James Perez [facility] RED BLOOD CELLS [facility] NM GI BLEED STUDY 2021-07-06 22:50:00 Kylie Flores [facility] POCT-GLUCOSE METER 2021-07-06 20:45:00 [facility] ABORH, MANUAL 2021-07-06 17:36:00 Mirna Calderon [facility] TYPE AND SCREEN, 2021-07-06 16:28:00 [facility] PO[facility]SE [facility]ER 2021-07-06 16:00:00 [facility] CBC W/PLT COUNT & AUTO 2021-07-06 14:25:00 [facility] W/PLT COUNT & AUTO 2021-07-06 14:25:00 [facility] ([facility]ENTIAL) 2021-07-06 14:25:00 Chris [facility] COMPREHENSIVE METABOLIC 2021-07-06 13:26:00 Jamey Perezmary kate Foxsheronjeferson [facility] MAGNESIUM 2021-07-06 13:26:00 Jamey Perezmary kate Dawkins [facility] POCT-GLUCOSE METER 2021-07-06 12:05:00 James [facility] XR CHEST 1 VIEW PORTABLE 2021-07-06 06:53:[address] [facility] / BEDSIDE [facility] POCT-GLUCOSE METER 2021-07-06 06:27:00 James [facility] POCT-GLUCOSE METER 2021-07-05 15:32:00 James Perez [facility] POCT-GLUCOSE METER 2021-07-05 11:52:00 James [facility] POCT-GLUCOSE METER 2021-07-05 06:13:00 Jamey Perezmary kate [facility] MAGNESIUM 2021-07-05 04:26:00 Fuentes Garcia [facility] CBC W/PLT COUNT & AUTO 2021-07-05 04:26:00 [facility] COMPREHENSIVE METABOLIC 2021-07-05 04:26:00 [facility] CBC W/PLT COUNT & AUTO 2021-07-05 04:26:00 Jaems [facility] CBC W/PLT COUNT & AUTO 2021-07-04 20:04:00 [facility] W/PLT COUNT & AUTO 2021-07-04 20:04:00 James Perez [facility] (MANUAL DIFFERENTIAL) 2021-07-04 20:04:00 James [facility] POCT-GLUCOSE METER 2021-07-04 19:39:00 [facility] POCT-GLUCOSE METER 2021-07-04 16:02:00 James Perez [facility] POCT-GLUCOSE METER 2021-07-04 11:41:00 [facility] C-REACTIVE PROTEIN 2021-07-04 05:03:00 Lydia John [facility] D-DIMER 2021-07-04 05:03:00 Lydia John [facility] CBC W/PLT COUNT & AUTO 2021-07-04 05:03:00 James Perez [facility] MAGNESIUM 2021-07-04 05:03:00 [facility]OLIC PANEL (7) 2021-07-04 05:03:00 [facility] CBC W/PLT COUNT & AUTO 2021-07-04 05:03:00 [facility] POCT-GLUCOSE METER 2021-07-04 04:41:00 James Perez [facility] POCT-GLUCOSE METER 2021-07-03 20:01:00 James Perez [facility] POCT-GLUCOSE METER 2021-07-03 16:15:00 James Perez [facility] POCT-GLUCOSE METER 2021-07-03 12:28:00 [facility]ST 1 VIEW PORTABLE 2021-07-03 06:27:00 James Perez [facility] BEDSIDE [facility] POCT-GLUCOSE METER 2021-07-03 06:21:00 [facility] POCT-GLUCOSE METER 2021-07-02 21:02:00 [facility] POCT-GLUCOSE METER 2021-07-02 15:20:00 Chris [facility] POCT-GLUCOSE METER 2021-07-02 11:54:[address] [facility] [address] CHEST FOR PULMONARY 2021-07-02 10:42:00 Lydia John [facility] POCT-GLUCOSE METER 2021-07-02 06:34:00 Chris [facility] POCT-GLUCOSE METER 2021-07-01 21:27:00 Chris [facility] POCT-GLUCOSE METER 2021-07-01 16:36:00 Chris [facility] VENOUS DOPPLER LEGS 2021-07-01 12:20:[address] [facility] POCT-GLUCOSE METER 2021-07-01 11:43:00 James Perez [facility] CBC W/PLT COUNT & AUTO 2021-07-01 09:50:00 Lydia John [facility] COMPREHENSIVE METABOLIC 2021-07-01 09:50:00 Lydia John [facility] C-REACTIVE PROTEIN 2021-07-01 09:50:00 Lydia John [facility] D-DIMER 2021-07-01 09:50:00 Lydia John [facility] CBC W/PLT COUNT & AUTO 2021-07-01 09:50:00 Lydia John [facility] (MANUAL DIFFERENTIAL) 2021-07-01 09:50:00 Lydia John [facility] POCT-GLUCOSE METER 2021-07-01 06:32:00 Chris [facility] POCT-GLUCOSE METER 2021-06-30 21:10:00 Chris [facility] POCT-GLUCOSE METER 2021-06-30 16:17:00 James Perez [facility] POCT-GLUCOSE METER 2021-06-30 11:38:00 James Perez [facility] POCT-GLUCOSE METER 2021-06-30 06:21:00 James Perez [facility] XR CHEST 1 VIEW PORTABLE 2021-06-30 06:07:00 James Perez [facility] PROTHROMBIN TIME/INR 2021-06-30 04:19:00 Jose Miguel Jesus [facility] HEPATIC FUNCTION PANEL 2021-06-30 04:19:[address] [facility] LIPID PANEL 2021-06-30 04:19:[facility] W/[facility]T COUNT & AUTO 2021-06-30 04:19:00 [facility] METABOLIC 2021-06-30 04:19:00 James Perez [facility] I [facility] MAGNESIUM 2021-06-30 04:19:00 James Perez [facility] CBC W/PLT COUNT & AUTO 2021-06-30 04:19:00 Jose Miguel Jesus [facility] POCT-GLUCOSE METER 2021-06-29 19:20:00 James Perez [facility] POCT-GLUCOSE METER 2021-06-29 15:59:00 James Perez [facility] D-DIMER 2021-06-29 12:23:00 Ion Santos [facility] C-REACTIVE PROTEIN 2021-06-29 12:23:00 Lydia John [facility] POCT-GLUCOSE METER 2021-06-29 11:06:00 James Perez [facility] POTASSIUM, RANDOM URINE 2021-06-29 08:54:00 Alroumoh [facility] OSMOLALITY, URINE 2021-06-29 08:54:00 [facility] SODIUM, RANDOM URINE 2021-06-29 08:54:00 [facility] PROTEIN, RANDOM URINE 2021-06-29 08:54:00 [facility] CREATININE, RANDOM URINE 2021-06-29 08:54:00 [facility] URINALYSIS W/ MICROSCOPIC 2021-06-29 08:54:00 [facility] XR CHEST 1 VIEW PORTABLE 2021-06-29 05:59:[address] [facility] / BEDSIDE [facility] HEPATIC FUNCTION PANEL 2021-06-29 03:37:00 Jose Miguel Jesus [facility] LIPID PANEL 2021-06-29 03:37:00 Jose Miguel Jesus [facility] CBC W/PLT COUNT & AUTO 2021-06-29 03:37:00 Jose Miguel Jesus [facility] PROTHROMBIN TIME/INR 2021-06-29 03:37:00 Jose Miguel Jesus [facility] BASIC METABOLIC PANEL (7) 2021-06-29 03:37:00 Lydia John [facility] CBC W/PLT COUNT & AUTO 2021-06-29 03:37:00 Jose Miguel Jesus [facility] Plan of Care Planned Activity Planned Date Details Comments Source Future Scheduled 2021-10-[address] [facility] - Test 00:00:00 (12+) [code = Medical Center DEPRESSION SCREENING (12+)] Future Scheduled 2021-10-13 FALLS RISK SCREENING [facility] - Test 00:00:00 [code = FALLS RISK Medical enter SCREENING] Future Scheduled 2021-10-[address] [facility] - Test 00:00:00 (12+) [code = Medical Center DEPRESSION SCREENING (12+)] Future Scheduled 2021-10-13 FALLS RISK SCREENING [facility] - Test 00:00:00 [code = FALLS RISK Medical C enter SCREENING] Future Scheduled 2021-06-13 INFLUENZA VACCINE (#1) [facility] 00:00:00 [code = INFLUENZA Medical Ce nter VACCINE (#1)] Future Scheduled 2021-06-13 INFLUENZA VACCINE (#1[facility] 00:00:00 [code = INFLUENZA Medical Ce nter VACCINE (#1)] Future Scheduled 2021-05-13 Medicare IPPE (WELCOME [facility] Test 00:00:00 TO MEDICARE) [code = Medical Center Medicare IPPE (WELCOME TO MEDICARE)] Future Scheduled 2021-05-13 Medicare IPPE (WELCOME [facility] Test 00:00:00 TO MEDICARE) [code = Medical Center Medicare IPPE (WELCOME TO MEDICARE)] Future Scheduled 2013 PNEUMOCOCCAL 65+ [facility] - Test 00:00:00 (1 of 1 - Medical Center [id number] PCV13) [code = PNEUMOCOCCAL 65+ YRS (1 of 1 - [id number] PCV13)] Future Scheduled 2013 PNEUMOCOCCAL 65+ Y[facility] - Test 00:00:00 (1 of 1 - Medical Center [id number] PCV13) [code = PNEUMOCOCCAL 65+ YRS (1 of 1 - [id number] PCV13)] Future Scheduled 1998 SHINGLES VACCINES ([address] [facility] - Test 00:00:00 of 2) [code = SHINGLES Medic al Center VACCINES (1 of 2)] Future Scheduled 1998 SHINGLES VACCINES ([address] [facility] - Test 00:00:00 of 2) [code = SHINGLES Medic al Center VACCINES (1 of 2)] Future Scheduled 1967 DTAP/TDAP/TD VACCINES [facility] Test 00:00:00 (1 - Tdap) [code = Medical C enter DTAP/TDAP/TD VACCINES (1 - Tdap)] Future Scheduled 1967 DTAP/TDAP/TD VACCINES [facility] Test 00:00:00 (1 - Tdap) [code = Medical C enter DTAP/TDAP/TD VACCINES (1 - Tdap)] Future Scheduled 1966 HEPATITIS C [facility]CRE[facility]ING [facility] 00:00:00 [code = HEPATITIS C Medical Center SCREENING] Future Scheduled 1966 HEPATITIS C [facility]CRE[facility]ING [facility] Test 00:00:00 [code = HEPATITIS C Medical Center SCREENING] Future Scheduled 1960 COVID-19 VACCINE (1) [facility] Test 00:00:00 [code = COVID-[address] VACCINE (1)] Future Scheduled 1960 COVID-19 VACCINE (1) [facility] Test 00:00:00 [code = COVID-[address] VACCINE (1)] Future Scheduled [address] [facility] [facility] Test 00:00:00 malignant neoplasm of Medica l Center breast (procedure) [code = 466435731] Future Scheduled [address] [facility] Test 00:00:00 malignant neoplasm of Medica l Center colon (procedure) [code = 408733602] Future Scheduled [address] [facility] - Test 00:00:00 malignant neoplasm of Medica l Center breast (procedure) [code = 116580255] Future Scheduled [address] [facility] - Test 00:00:00 malignant neoplasm of Medica l Center colon (procedure) [code = 868510212] Encounters Start End Encounter Admission Attending Care Care Encounter Source Date/Time Date/Time Type Type Clinicians Facility Department ID 2021-08-30 Inpatient UR [facility] Vascular [id number] [facility] 13[facility] 2021-07-22 Inpatient UR JAMES PEREZ [facility] [id number] [facility] 12:46:41 2021-06-28 2021-07-11 Hospital UR James Perez [facility] [id number] [id number] 22:13:00 23:11:00 [facility] 2021-06-29 2021-06-29 Travel [facility] [id number] [facility] 00[facility]00 [facility] Results Test Description Test Time Test Comments Results Result Comments Source POC-Glucose meter 2021-07-11 16:08:47 Test Item Value Reference Range Interpretation Comme nts POC-Glucose Meter (test code = 228 mg/dL 70-110 H : [facility] [address] [place] [id number]: Veneer Jointer Offbearer/Techni unique ID = [id number] for Ishmael, Ayin or Lab Interpretation (test code = Abnormal 60536-1) [facility] [id number] 16:08:47 Test Item Value Reference Range Interpretation Comments POC-Glucose Meter (test 228 mg/dL 70-110 H : TE STED AT [facility] code = 1538) [address] [place] [id number]: Veneer Jointer Offbearer/Techni unique ID = [id number] for Ishmael, Ayin or Lab Interpretation (test Abnormal code = 01046-0) [facility] [id number] 16:08:47 Test Item Value Reference Range Interpretation Comments POC-GLUCOSE METER 228 mg/dL 70-110 H : TESTED A T [facility] [address] (BEAKER) (test code [address] [facility], = 1538) [place] [id number]: Veneer Jointer Offbearer/Techni unique ID = [id number] for Chayito Mccaintami POCT-GLUCOSE [id number] 11:49:12 Test Item Value Reference Range Interpretation Comments POC-GLUCOSE METER 122 mg/dL 70-110 H : TESTED A T [facility] [address] (BEAKER) (test code [address] [facility], = 1538) [place] [id number]: Veneer Jointer Offbearer/Techni unique ID = [id number] for Abhinav Mccaininor Comprehensive metabolic [id number] 06:20:58 Test Item Value Reference Range Interpretation Comments Protein, Total (test 4.8 See_Comment L [Autom ated code = 2885-2) message] The system which generated this result transmitted reference range : 6.0 - 8.5 gm/dL . The reference range was not used to interpr et this result as normal/abnormal . Albumin (test code = 2.6 g/dL 3.5-5.0 L 74223-6) Alkaline Phosphatase 49 U/L 30-115 (test code = 6768-6) Total Bilirubin 0.5 mg/dL 0.1-1.2 (test code = 1975-2) Sodium (test code = 142 meq/L 880-089 6462-2) Potassium (test code 3.3 meq/L 3.6-5.5 L = 2823-3) Chloride (test code 110 meq/L 98-106 H = 2075-0) CO2 (test code = 22 meq/L -29 2027-9) BUN (test code = 13 mg/dL - 3094-0) Creatinine (test 0.64 mg/dL 0.50-1.20 code = 2160-0) Glucose (test code = 135 mg/dL 70-110 H 2345-7) Calcium (test code = 8.2 mg/dL 8.5-10.5 L 89596-0) AST (test code = 14 U/L 5-40 1920-8) ALT (test code = 32 U/L -50 1742-6) EGFR (test code = 111 mL/min/1.73 [place] [address]-7) m NOT ACCURATE CREATININE CLEARANCE IN PREDICTING GLOMERULAR FILTRATION RATE . ESTIMATED GFR I S NOT APPLICABLE FOR DIALYSIS PATIENTS. LINDY (test code = Veneer Jointer Offbearer ID - LINDY) LITOOperator ID - LITOOperator ID - LITOOperator ID - LITOOperator ID - LITOOperator ID - LITOOperator ID - LITOOperator ID - LITOOperator ID - LITOOperator ID - LITOOperator ID - LITOOperator ID - LITOOperator ID - LITOOperator ID - LITOOperator ID - LITOOperator ID - FLORENCIO Lab Interpretation Abnormal (test code = 36465-7) [facility] [id number] 06:20:58 Test Item Value Reference Range Interpretation Comments Protein, Total (test 4.8 See_Comment L [Autom ated code = 2885-2) message] The system which generated this result transmitted reference range : 6.0 - 8.5 gm/dL . The reference range was not used to interpr et this result as normal/abnormal . Albumin (test code = 2.6 g/dL 3.5-5.0 L 02990-8) Alkaline Phosphatase 49 U/L 30-115 (test code = 6768-6) Total Bilirubin 0.5 mg/dL 0.1-1.2 (test code = 1974-2) Sodium (test code = 142 meq/L 490-506 0983-2) Potassium (test code 3.3 meq/L 3.6-5.5 L = 2823-3) Chloride (test code 110 meq/L 98-106 H = 2075-0) CO2 (test code = 22 meq/L -29 2027-9) BUN (test code = 13 mg/dL 10- 3094-0) Creatinine (test 0.64 mg/dL 0.50-1.20 code = 2160-0) Glucose (test code = 135 mg/dL 70-110 H 2345-7) Calcium (test code = 8.2 mg/dL 8.5-10.5 L 64287-0) AST (test code = 14 U/L 5-40 1920-8) ALT (test code = 32 U/L -50 1742-6) EGFR (test code = 111 mL/min/1.73 [place] [address]-1) m NOT ACCURATE CREATININE CLEARANCE IN PREDICTING GLOMERULAR FILTRATION RATE . ESTIMATED GFR I S NOT APPLICABLE FOR DIALYSIS PATIENTS. LINDY (test code = Veneer Jointer Offbearer ID - LINDY) LITOOperator ID - LITOOperator ID - LITOOperator ID - LITOOperator ID - LITOOperator ID - LITOOperator ID - LITOOperator ID - LITOOperator ID - LITOOperator ID - LITOOperator ID - LITOOperator ID - LITOOperator ID - LITOOperator ID - LITOOperator ID - LITOOperator ID - FLORENCIO Lab Interpretation Abnormal (test code = 75286-7) [facility] [id number] 06:20:58 Test Item Value Reference Range Interpretation [...] S NOT APPLICABLE FOR DIALYSIS PATIEN TS. Veneer Jointer Offbearer ID - LITOOperator ID - LITOOperator ID [...] code [address], = 1538) [facility] [place] 2[place] 77 478: Veneer Jointer Offbearer/Techni unique ID = [id number] for Tammie cooperElizabeth Alelqzskr0302-52-29 06:19:13 Test Item Value Reference Range Interpretation Comments Magnesium (test code = 1.7 mg/dL 1.5-3.0 63138-9) LINDY (test code = LINDY) Veneer Jointer Offbearer ID - LITOOperator ID - LITOOperator ID - LITOOperator ID - FLORENCIO Lab Interpretation (test Normal code = 67097-7) [facility] 06:[facility]13 Test Item Value Reference Range Interpretation Comments Magnesium (test code = 1.7 mg/dL 1.5-3.0 19946-1) LINDY (test code = LINDY) Veneer Jointer Offbearer ID - LITOOperator ID - LITOOperator ID - LITOOperator ID - FLORENCIO Lab Interpretation (test Normal code = 82101-2) [facility] 06:[facility]13 Test Item Value Reference Range Interpretation Comments MAGNESIUM (BEAKER) (test code = 1.7 mg/dL 1.5-3.0 627) Veneer Jointer Offbearer ID - LITOOperator ID - LITOOperator ID - LITOOperator ID - LITOCBC with platelet count + automated mozy1330-03-71 05:50:18 Test Item Value Reference Range Interpretation Comments WBC (test code = 6690-2) 6.1 See_Comment [A utomated message] The system Qgiv generated this result transmitted ref erence range: 4.0 - 10 .0 K/L. The refe rence range was not u sed to interpret this result as normal/abnor mal. RBC (test code = 789-8) 2.98 See_Comment L [Au tomated message] The system Qgiv generated this result transmitted ref erence range: 4.00 - 5 .00 M/L. The refe rence range was not u sed to interpret this result as normal/abnor mal. MCHC (test code = 786-4) 31.8 See_Comment L [A utomated message] The system Qgiv generated this result transmitted ref erence range: 32.0 - 3 6.0 GM/DL. The refe rence range was not u sed to interpret this result as normal/abnor mal. Hematocrit (test code = 28.6 % 36.0-46.0 L 4544-3) MCV (test code = 787-2) 96.0 fL 82.0-99.0 MCH (test code = 785-6) 30.5 pg 27.0-33.0 RDW (test code = 788-0) 20.5 % 12.0-15.0 H Platelets (test code = 90 See_Comment L [Aut omated message] 777-3) The system Qgiv generated this result transmitted ref erence range: 150 - 43 0 K/CU MM. The referen ce range was not u sed to interpret this result as normal/abnor mal. MPV (test code = 10.8 fL 6.0-11.5 91496-2) nRBC (test code = 413) 1 See_Comment H [Aut omated message] The system Qgiv generated this result transmitted ref erence range: 0 - 0 /1 00 WBC. The refere nce range was not u sed to interpret this result as normal/abnor mal. % Neutros (test code = 63 % 429) % Lymphs (test code = 28 % 430) % Monos (test code = 6 % 431) % Eos (test code = 432) 0 % % Baso (test code = 437) 0 % # Neutros (test code = 3.83 See_Comment [Aut omated message] 670) The system Qgiv generated this result transmitted ref erence range: 1.80 - 8 .00 K/L. The refe rence range was not u sed to interpret this result as normal/abnor mal. # Lymphs (test code = 1.73 See_Comment [Auto mated message] 414) The system Qgiv generated this result transmitted ref erence range: 1.48 - 4 .50 K/L. The refe rence range was not u sed to interpret this result as normal/abnor mal. # Monos (test code = 0.38 See_Comment [Autom ated message] 415) The system Qgiv generated this result transmitted ref erence range: 0.00 - 1 .30 K/L. The refe rence range was not u sed to interpret this result as normal/abnor mal. # Eos (test code = 416) 0.02 See_Comment [Au tomated message] The system Qgiv generated this result transmitted ref erence range: 0.00 - 0 .50 K/L. The refe rence range was not u sed to interpret this result as normal/abnor mal. # Baso (test code = 417) 0.01 See_Comment [A utomated message] The system Qgiv generated this result transmitted ref erence range: 0.00 - 0 .20 K/L. The refe rence range was not u sed to interpret this result as normal/abnor mal. Immature 2 % 0-0 H Granulocytes-Relative (test code = 2801) Lab Interpretation (test Abnormal code = 51873-7) [facility] with platelet count + automated [id number] 05:50:18 Test Item Value Reference Range Interpretation Comments WBC (test code = 6690-2) 6.1 See_Comment [A utomated message] The system Qgiv generated this result transmitted ref erence range: 4.0 - 10 .0 K/L. The refe rence range was not u sed to interpret this result as normal/abnor mal. RBC (test code = 789-8) 2.98 See_Comment L [Au tomated message] The system Qgiv generated this result transmitted ref erence range: 4.00 - 5 .00 M/L. The refe rence range was not u sed to interpret this result as normal/abnor mal. MCHC (test code = 786-4) 31.8 See_Comment L [A utomated message] The system Qgiv generated this result transmitted ref erence range: 32.0 - 3 6.0 GM/DL. The refe rence range was not u sed to interpret this result as normal/abnor mal. Hematocrit (test code = 28.6 % 36.0-46.0 L 4544-3) MCV (test code = 787-2) 96.0 fL 82.0-99.0 MCH (test code = 785-6) 30.5 pg 27.0-33.0 RDW (test code = 788-0) 20.5 % 12.0-15.0 H Platelets (test code = 90 See_Comment L [Aut omated message] 407-3) The system Qgiv generated this result transmitted ref erence range: 150 - 43 0 K/CU MM. The referen ce range was not u sed to interpret this result as normal/abnor mal. MPV (test code = 10.8 fL 6.0-11.5 05761-9) nRBC (test code = 413) 1 See_Comment H [Aut omated message] The system Qgiv generated this result transmitted ref erence range: 0 - 0 /1 00 WBC. The refere nce range was not u sed to interpret this result as normal/abnor mal. % Neutros (test code = 63 % 429) % Lymphs (test code = 28 % 430) % Monos (test code = 6 % 431) % Eos (test code = 432) 0 % % Baso (test code = 437) 0 % # Neutros (test code = 3.83 See_Comment [Aut omated message] 670) The system Qgiv generated this result transmitted ref erence range: 1.80 - 8 .00 K/L. The refe rence range was not u sed to interpret this result as normal/abnor mal. # Lymphs (test code = 1.73 See_Comment [Auto mated message] 414) The system Qgiv generated this result transmitted ref erence range: 1.48 - 4 .50 K/L. The refe rence range was not u sed to interpret this result as normal/abnor mal. # Monos (test code = 0.38 See_Comment [Autom ated message] 415) The system Qgiv generated this result transmitted ref erence range: 0.00 - 1 .30 K/L. The refe rence range was not u sed to interpret this result as normal/abnor mal. # Eos (test code = 416) 0.02 See_Comment [Au tomated message] The system Qgiv generated this result transmitted ref erence range: 0.00 - 0 .50 K/L. The refe rence range was not u sed to interpret this result as normal/abnor mal. # Baso (test code = 417) 0.01 See_Comment [A utomated message] The system Qgiv generated this result transmitted ref erence range: 0.00 - 0 .20 K/L. The refe rence range was not u sed to interpret this result as normal/abnor mal. Immature 2 % 0-0 H Granulocytes-Relative (test code = 2801) Lab Interpretation (test Abnormal code = 22551-8) [facility] W/PLT COUNT & AUTO [id number] 05:50:18 Test Item Value Reference Range Interpretation [...] PERCENT (BEAKER) (test code = 2801) POCT-GLUCOSE [id number] 20:50:37 Test Item Value Reference Range Interpretation Comments POC-GLUCOSE METER 176 mg/dL 70-110 H : TESTED A T [address] (BEAKER) (test code [address], = 1538) [place] [address]: Veneer Jointer Offbearer/Techni unique ID = [id number] for Elizabeth Joshua POCT-GLUCOSE [id number] 17:10:15 Test Item Value Reference Range Interpretation Comments POC-GLUCOSE METER 223 mg/dL 70-110 H : TESTED A T [address] (BEAKER) (test code [address], = 1538) [place] [id number]: Veneer Jointer Offbearer/Techni unique ID = [id number] for Juany r, Breanna POCT-GLUCOSE [id number] 11:50:56 Test Item Value Reference Range Interpretation Comments POC-GLUCOSE METER 241 mg/dL 70-110 H : TESTED A T [address] (BEAKER) (test code [address], = 1538) [place] [id number]: Veneer Jointer Offbearer/Techni unique ID = [id number] for Juany r, Breanna RAD, CHEST, 1 VIEW, NON [id number] 09:19:00Reason for exam:->covid pna [facility] : 1950 Sex: FFINAL REPORT Chest, 1 view, 07/10/2021 8:16 AM. History: Hypoxia, Covid pneumonia. Comparison: 07/06/2021. Discussion: The cardiac silhouette is stable. Bilateral interstitial and patchy airspace opacities are unchanged. There is no pneumothorax or pleural effusion. The soft tissues and osseous structures are intact. IMPRESSION: Bilateral pneumonia without significant felix nge. Signed: Francisco Perezeport Verified Date/Time: 07/10/2021 09:19:31 Reading Location: [facility] Radiology Reading Room POCT-GLUCOSE [id number] 06:20:04 Test Item Value Reference Range Interpretation Comments POC-GLUCOSE METER 207 mg/dL 70-110 H : TESTED A T [facility] [address] (BEAKER) (test code [facility] [address], = 1538) [facility] [place] 2[place] 77 478: Veneer Jointer Offbearer/Techni unique ID = [id number] for Jesus Gil COMPREHENSIVE METABOLIC [id number] 05:46:05 Test Item Value Reference Range Interpretation [...] 347) EGFR (BEAKER) (test 98 mL/min/1.73 ESTIMA LOS GFR IS code = 1092) sq m NOT ACCURATE CREATININE CLEARANCE IN PREDICTING GLOMERULAR FILTRATION RATE . ESTIMATED GFR I S NOT APPLICABLE FOR DIALYSIS PATIEN TS. Veneer Jointer Offbearer ID - [id number] ID - [id number] ID - [id number] ID - [id number] ID - [id number] ID - [id number] ID - [id number] ID - [id number] ID - [id number] ID - [id number] ID - [id number] ID - [id number] ID - [id number] ID - [id number] ID - [id number] ID - [id number] 05:44:15 Test Item Value Reference Range Interpretation Comments MAGNESIUM (BEAKER) (test code = 2.0 mg/dL 1.5-3.0 627) Veneer Jointer Offbearer ID - [id number] ID - [id number] ID - [id number] ID - [id number] W/PLT COUNT & AUTO [id number] 05:11:45 Test Item Value Reference Range Interpretation [...] PERCENT (BEAKER) (test code = 2801) POCT-GLUCOSE [id number] 20:27:38 Test Item Value Reference Range Interpretation Comments POC-GLUCOSE METER 191 mg/dL 70-110 H : TESTED A T [address] (BEAKER) (test code [address], = 1538) [facility] [place]NOTE 2] 77 478: Veneer Jointer Offbearer/Techni unique ID = [id number] for Fabiánivette crowderJesus POCT-GLUCOSE [id number] 18:34:59 Test Item Value Reference Range Interpretation Comments POC-GLUCOSE METER 241 mg/dL 70-110 H : TESTED A T [address] (BEAKER) (test code [address], = 1538) [place] [address]: Veneer Jointer Offbearer/Techni unique ID = [id number] for Juany Ene simpsone POCT-GLUCOSE [id number] 18:34:58 Test Item Value Reference Range Interpretation Comments POC-GLUCOSE METER 240 mg/dL 70-110 H : TESTED A T [address] [address] (BEAKER) (test code [address], = 1538) [place] [id number]: Veneer Jointer Offbearer/Techni unique ID = [id number] for Juany r, Breanna POCT-GLUCOSE [id number] 06:43:22 Test Item Value Reference Range Interpretation Comments POC-GLUCOSE METER 102 mg/dL 70-110 : TESTED A T [address] [address] (BEAKER) (test code [address], = 1538) [place] [address]: Veneer Jointer Offbearer/Techni unique ID = [id number] for Will maggie, Ila Prepare Leuko-Red [id number] 23:54:00 Test Item Value Reference Range Interpretation Comments CROSSMATCH (test code = 2264) COMPATIBLE Unit ABO (test code = O Pos [id number]) UNIT NUMBER (test code = [id number] 934-0) Status (test code = 8052031) [facility] Blood Bank Product (test code RED BLOOD CELLS = 2263) PRODUCT CODE (test code = I5237S15 933-2) [facility] Hospital[facility]uk[facility]-Red [id number] 23:54:00 Test Item Value Reference Range Interpretation Comments CROSSMATCH (test code = 2264) COMPATIBLE Unit ABO (test code = O Pos 4926832) UNIT NUMBER (test code = [id number] 934-0) Status (test code = 3803440) TX_TIMEINCHART Blood Bank Product (test code RED BLOOD CELLS = 2263) PRODUCT CODE (test code = E4613M23 933-2) [facility] Hospital[facility] [id number] 20:38:01 Test Item Value Reference Range Interpretation Comments POC-GLUCOSE METER 217 mg/dL 70-110 H : TESTED A T [address] [address] (BEAKER) (test code [address], = 1538) [place] [address]: Veneer Jointer Offbearer/Techni unique ID = [id number] for Ila Zhao POCT-GLUCOSE [id number] 15:50:59 Test Item Value Reference Range Interpretation Comments POC-GLUCOSE METER 292 mg/dL 70-110 H : TESTED A T [facility] [address] (BEAKER) (test code [address] [facility] [address], = 1538) [place] [address]: Veneer Jointer Offbearer/Techni unique ID = [id number] for Cerv antes, Crystal POCT-GLUCOSE [id number] 11:51:33 Test Item Value Reference Range Interpretation Comments POC-GLUCOSE METER 126 mg/dL 70-110 H : TESTED A T [address] (BEAKER) (test code [address], = 1538) [place] [address]: Veneer Jointer Offbearer/Techni unique ID = [id number] for Cerv antes, Crystal POCT-GLUCOSE [id number] 11:51:31 Test Item Value Reference Range Interpretation Comments POC-GLUCOSE METER 177 mg/dL 70-110 H : TESTED A T [facility] [address] (BEAKER) (test code [address] [facility] [address], = 1538) [place] [address]: Veneer Jointer Offbearer/Techni unique ID = [id number] for Josiane Vicente COMPREHENSIVE METABOLIC [id number] 05:57:28 Test Item Value Reference Range Interpretation [...] S NOT APPLICABLE FOR DIALYSIS PATIEN TS. Veneer Jointer Offbearer ID - [id number] ID - [id number] ID - [id number] ID - [id number] ID - [id number] ID - [id number] ID - [id number] ID - [id number] ID - [id number] ID - [id number] ID - [id number] ID - [id number] ID - [id number] ID - [id number] ID - [id number] ID - [id number] 05:53:42 Test Item Value Reference Range Interpretation Comments MAGNESIUM (BEAKER) (test code = 1.8 mg/dL 1.5-3.0 627) Veneer Jointer Offbearer ID - [id number] ID - [id number] ID - [id number] ID - [id number] W/PLT COUNT & AUTO [id number] 05:37:23 Test Item Value Reference Range Interpretation [...] PERCENT (BEAKER) (test code = 2801) POCT-GLUCOSE [id number] 23:12:51 Test Item Value Reference Range Interpretation Comments POC-GLUCOSE METER 244 mg/dL 70-110 H : TESTED A T [facility] [address] (BEAKER) ([facility] [address] = [address]) [facility] [place]NOTE 2[place] [address]: Veneer Jointer Offbearer/Techni unique ID = [id number] for Josiane Vicente POCT-GLUCOSE [id number] 15:53:03 Test Item Value Reference Range Interpretation Comments POC-GLUCOSE METER 237 mg/dL 70-110 H : TESTED A T [facility] [address] (BEAKER) (test code [address], = 1538) [facility] [place]NOTE 2[place] 77 [address]: Veneer Jointer Offbearer/Techni unique ID = [id number] for Cerv antes, Crystal HEMORRHAGE IMAGING, [id number] 12:49:00We need the study done todayUnlisted Reason for Exam - Click Yes and Enter Reason Below->No [facility] : 1950 Sex: FFINAL REPORT PROCEDURE: HEMORRHAGE STUDY with RBCs CPT CODE:85908 INDICATION: Gastrointestinal Bleeding PROTOCOL: 28.4 mCi of Tc-99m was injected intravenously as labeled autologous red blood cells. Flow images of the abdomen were obtained, followed by serial images for approximately 60 minutes. Additional images were obtained 14 hours after tracer injection. FINDINGS: There is physiological tracer distribution in the blood pool. IMPRESSION: Negative study. No evidence of active hemorrhage is seen. Signed: Bahman Conroy Verified Date/Time: 07/07/2021 12:49:47 POCT- GLUCOSE [id number] 12:10:46 Test Item Value Reference Range Interpretation Comments POC-GLUCOSE METER 168 mg/dL 70-110 H : TESTED A T [facility] [address] (BEAKER) (test code [address], = 1538) [facility] [place]NOTE 2] 77 [address]: Veneer Jointer Offbearer/Techni unique ID = [id number] for Meme Buckner COMPREHENSIVE METABOLIC [id number] 07:13:02 Test Item Value Reference Range Interpretation [...] S NOT APPLICABLE FOR DIALYSIS PATIEN TS. Veneer Jointer Offbearer ID - LITOOperator ID - LITOOperator ID - LITOOperator ID - LITOOperator ID - LITOOperator ID - LITOOperator ID - LITOOperator ID - LITOOperator ID - LITOOperator ID - LITOOperator ID - LITOOperator ID - LITOOperator ID - LITOOperator ID - LITOOperator ID - LITOOperator ID - [id number] 07:08:35 Test Item Value Reference Range Interpretation Comments MAGNESIUM (BEAKER) (test code = 2.0 mg/dL 1.5-3.0 627) Veneer Jointer Offbearer ID - LITOOperator ID - LITOOperator ID - LITOOperator ID - LITOCBC W/PLT COUNT & AUTO [id number] 06:56:12 Test Item Value Reference Range Interpretation [...] PERCENT (BEAKER) (test code = 2801) POCT-GLUCOSE [id number] 06:52:19 Test Item Value Reference Range Interpretation Comments POC-GLUCOSE METER 206 mg/dL 70-110 H : TESTED A T [facility] [address] (BEAKER) (test code [address], = 1538) [place] [address]: Veneer Jointer Offbearer/Techni unique ID = [id number] for Elizabeth Joshua POCT-GLUCOSE [id number] 23:49:27 Test Item Value Reference Range Interpretation Comments POC-GLUCOSE METER 140 mg/dL 70-110 H : TESTED A T [facility] [address] (BEAKER) (test code [address], = 1538) [place] [address]: Veneer Jointer Offbearer/Techni unique ID = [id number] for Josiane Vicente ABOR, [id number] 17:58:00 Test Item Value Reference Range Interpretation Comments ABO Grouping (test code O PINK TOP 07/06/21 @ 1728 = 2588) Rh Factor (test code = POS PINK TOP 07/06/21 @ 1728 2589) [facility] HospitalABORH, [id number] 17:58:00 Test Item Value Reference Range Interpretation Comments ABO Grouping (test code O PINK TOP 07/06/21 @ 1728 = 2588) Rh Factor (test code = POS PINK TOP 07/06/21 @ 1728 2589) [facility] HospitalType and screen, [id number] 17:20:00 Test Item Value Reference Range Interpretation Comments ABO/RH AUTOMATED (BEAKER) (test O POSITIVE echo code = 2260) Ab Scrn (test code = 890-4) NEGATIVE echo [facility] HospitalType and screen, [id number] 17:20:00 Test Item Value Reference Range Interpretation Comments ABO/RH AUTOMATED (BEAKER) (test O POSITIVE echo code = 2260) Ab Scrn (test code = 890-4) NEGATIVE [facility] [id number] 16:45:28 Test Item Value Reference Range Interpretation Comments POC-GLUCOSE METER 212 mg/dL 70-110 H : Notified RN/MD: TESTED (BEAKER) (test code AT [facility] [address] = 1538) [facility] [address]: Veneer Jointer Offbearer/Techni unique ID = [id number] for Ezek iel, Erika Manual [id number] 15:09:27 Test Item Value Reference Range Interpretation Comments % Neutros (manual) (test 92 % code = 1359) % Lymphs (manual) (test 7 % code = 1360) % Metamyelo (manual) 1 % 0-0 H (test code = 258) # Neutros (manual) (test 6.35 See_Comment [A utomated message] code = 1365) The system Qgiv generated this result transmitted ref erence range: 1.80 - 8 .00 K/L. The refe rence range was not u sed to interpret this result as normal/abnor mal. # Lymphs (manual) (test 0.48 See_Comment L [Au tomated message] code = 1366) The system Qgiv generated this result transmitted ref erence range: 1.48 - 4 .50 K/L. The refe rence range was not u sed to interpret this result as normal/abnor mal. # Metamyelo (manual) 0.07 See_Comment H [Autom ated message] (test code = 261) The system which generated this result transmitted ref erence range: 0.00 - 0 .00 K/L. The refe rence range was not u sed to interpret this result as normal/abnor mal. Total Counted (test code 100 = 1351) nRBC (manual) (test code 1 See_Comment H [A utomated message] = 1353) The system Qgiv generated this result transmitted ref erence range: 0 - 0 /1 00 WBC. The refere nce range was not u sed to interpret this result as normal/abnor mal. WBC Morphology (test Normal code = 487) Platelet Morphology Normal (test code = 486) RBC Morphology (test Normal code = 762) Lab Interpretation (test Abnormal code = 84451-9) [facility] HospitalManual [id number] 15:09:27 Test Item Value Reference Range Interpretation Comments % Neutros (manual) (test 92 % code = 1359) % Lymphs (manual) (test 7 % code = 1360) % Metamyelo (manual) 1 % 0-0 H (test code = 258) # Neutros (manual) (test 6.35 See_Comment [A utomated message] code = 1365) The system Qgiv generated this result transmitted ref erence range: 1.80 - 8 .00 K/L. The refe rence range was not u sed to interpret this result as normal/abnor mal. # Lymphs (manual) (test 0.48 See_Comment L [Au tomated message] code = 1366) The system Qgiv generated this result transmitted ref erence range: 1.48 - 4 .50 K/L. The refe rence range was not u sed to interpret this result as normal/abnor mal. # Metamyelo (manual) 0.07 See_Comment H [Autom ated message] (test code = 261) The system which generated this result transmitted ref erence range: 0.00 - 0 .00 K/L. The refe rence range was not u sed to interpret this result as normal/abnor mal. Total Counted (test code 100 = 1351) nRBC (manual) (test code 1 See_Comment H [A utomated message] = 1353) The system Qgiv generated this result transmitted ref erence range: 0 - 0 /1 00 WBC. The refere nce range was not u sed to interpret this result as normal/abnor mal. WBC Morphology (test Normal code = 487) Platelet Morphology Normal (test code = 486) RBC Morphology (test Normal code = 762) Lab Interpretation (test Abnormal code = 80586-8) [facility] HospitalCBC W/PLT COUNT & AUTO [id number] 15:09:27 Test Item Value Reference Range Interpretation [...] (test code Normal = 762) COMPREHENSIVE METABOLIC [id number] 13:56:55 Test Item Value Reference Range Interpretation [...] 347) EGFR (BEAKER) (test 94 mL/min/1.73 ESTIMA LOS GFR IS code = 1092) sq m NOT ACCURATE CREATININE CLEARANCE IN PREDICTING GLOMERULAR FILTRATION RATE . ESTIMATED GFR I S NOT APPLICABLE FOR DIALYSIS PATIEN TS. Veneer Jointer Offbearer ID - ACONTEHOperator ID - ACONTEHOperator ID - ACONTEHOperator ID - ACONTEHOperator ID - ACONTEHOperator ID - ACONTEHOperator ID - ACONTEHOperator ID - ACONTEHOperator ID - ACONTEHOperator ID - ACONTEHOperator ID - ACONTEHOperator ID - ACONTEHOperator ID - ACONTEHOperator ID - ACONTEHOperatorID - ACONTEHOperator ID - [id number] 13:53:54 Test Item Value Reference Range Interpretation Comments MAGNESIUM (VIKRAM) (test code = 2.1 mg/dL 1.5-3.0 627) Veneer Jointer Offbearer ID - ACONTEHOperator ID - ACONTEHOperator ID - ACONTEHOperator ID - ACONTEHPOCT-GLUCOSE [id number] 13:04:56 Test Item Value Reference Range Interpretation Comments POC-GLUCOSE METER 223 mg/dL 70-110 H : Notified RN/MD: TESTED (VIKRAM) (test code AT [facility] [address] = 1538) [facility] [address]: Veneer Jointer Offbearer/Techni unique ID = [id number] for Ezek iel, Erika RAD, CHEST, 1 VIEW, NON [id number] 09:59:00Reason for exam:->covid pnaShould this be performed at the bedside?->Yes [facility] : 1950 Sex: FFINAL REPORT [...] Bilateral pneumonia, slightly improved. Signed: Francisco Perez MDReport Verified Date/Time: 07/06/2021 09:59:51 Reading Location: [facility] Radiology Reading Room POCT-GLUCOSE [id number] 06:43:25 Test Item Value Reference Range Interpretation Comments POC-GLUCOSE METER 200 mg/dL 70-110 H : TESTED A T [facility] 131 ([facility]) (test code [facility] NT [facility], = 1538) [place] [address]: Veneer Jointer Offbearer/Techni unique ID = [id number] for Elizabeth Joshua POCT-GLUCOSE [id number] 16:15:23 Test Item Value Reference Range Interpretation Comments POC-GLUCOSE METER 318 mg/dL 70-110 H : Notified RN/MD: TESTED ([facility]) (test code AT [facility] 131[facility] PO[address] = 1538) [place] [address]: Veneer Jointer Offbearer/Techni unique ID = [id number] for Ezek iel, Erika POCT-GLUCOSE [id number] 12:25:37 Test Item Value Reference Range Interpretation Comments POC-GLUCOSE METER 213 mg/dL 70-110 H : Notified RN/MD: TESTED ([facility]) (test code AT [facility] [address] = 1538) [place] [address]: Veneer Jointer Offbearer/Techni unique ID = [id number] for Ezek iel, Erika POCT-GLUCOSE [id number] 06:53:05 Test Item Value Reference Range Interpretation Comments POC-GLUCOSE METER 177 mg/dL 70-110 H : Notified RN/MD: TESTED ([facility]) (test code AT [facility] 131[facility] PO[address] = 1538) [place] [address]: Veneer Jointer Offbearer/Techni uinque ID = [id number] for Nimesh Jones si COMPREHENSIVE METABOLIC [id number] 05:51:50 Test Item Value Reference Range Interpretation Comments TOTAL PROTEIN 4.0 gm/dL 6.0-8.5 L ([facility]) (test code = 770) ALBUMIN ([facility]) 2.1 g/dL 3.5-5.0 L (test code = [...] S NOT APPLICABLE FOR DIALYSIS PATIEN TS. Veneer Jointer Offbearer ID - [id number] ID - [id number] ID - [id number] ID - [id number] ID - [id number] ID - [id number] ID - [id number] ID - [id number] ID - [id number] ID - [id number] ID - [id number] ID - [id number] ID - [id number] ID - [id number] ID - [id number] ID - [id number] W/PLT COUNT & AUTO [id number] 05:50:47 Test Item Value Reference Range Interpretation [...] H PERCENT (BEAKER) (test code = 2801) [id number] 05:43:09 Test Item Value Reference Range Interpretation Comments MAGNESIUM (BEAKER) (test code = 2.3 mg/dL 1.5-3.0 627) Veneer Jointer Offbearer ID - [id number] ID - [id number] ID - [id number] ID - [id number](MANUAL DIFFERENTIAL)2021-07-04 21:10:33 Test Item Value Reference Range [...] = 762) CBC W/PLT COUNT & AUTO [id number] 21:10:32 Test Item Value Reference Range Interpretation [...] 0-0 H (test code = 413) POCT-GLUCOSE [id number] 20:24:31 Test Item Value Reference Range Interpretation Comments POC-GLUCOSE METER 221 mg/dL 70-110 H : Notified RN/MD: TESTED ([facility]) (test code AT [address] = 1538) [place] [address]: Veneer Jointer Offbearer/Techni unique ID = [id number] for Asya Estes POCT-GLUCOSE [id number] 16:30:17 Test Item Value Reference Range Interpretation Comments POC-GLUCOSE METER 279 mg/dL 70-110 H : Notified RN/MD: TESTED ([facility]) (test code AT [address] PO[address] = 1538) [place] [address]: Veneer Jointer Offbearer/Techni unique ID = [id number] for Ezek iel, Erika POCT-GLUCOSE [id number] 11:53:19 Test Item Value Reference Range Interpretation Comments POC-GLUCOSE METER 235 mg/dL 70-110 H : Notified RN/MD: TESTED ([facility]) (test code AT [address] PO[address] = 1538) [place] [address]: Veneer Jointer Offbearer/Techni unique ID = [id number] for Ezek iel, Erika [id number] 05:58:15 Test Item Value Reference Range Interpretation Comments MAGNESIUM (BEAKER) (test code = 1.6 mg/dL 1.5-3.0 627) Veneer Jointer Offbearer ID - LITOOperator ID - LITOOperator ID - LITOOperator ID - LITOC- Reactive [id number] 05:57:52 Test Item Value Reference Range Interpretation Comments CRP (test code = 676) 1.16 mg/dL 0.00-0.50 H LINDY (test code = LINDY) Veneer Jointer Offbearer ID - FLORENCIO Lab Interpretation (test Abnormal code = 47096-0) [facility] [id number] 05:57:52 Test Item Value Reference Range Interpretation Comments CRP (test code = 676) 1.16 mg/dL 0.00-0.50 H LINDY (test code = LINDY) Veneer Jointer Offbearer ID - FLORENCIO Lab Interpretation (test Abnormal code = 58709-7) [facility] [id number] 05:57:52 Test Item Value Reference Range Interpretation Comments C-REACTIVE PROTEIN (BEAKER) (test 1.16 mg/dL 0.00-0.50 H code = 676) Veneer Jointer Offbearer ID - LITOBasic Metabolic [id number] 05:57:46 Test Item Value Reference Range Interpretation Comments Sodium (test code = 138 meq/L 797-588 5559-2) Potassium (test code 2.9 meq/L 3.6-5.5 L = 2823-3) Chloride (test code = 108 meq/L 98-106 H 2075-0) CO2 (test code = 20 meq/L 20-29 2028-9) BUN (test code = 18 mg/dL 10-26 3094-0) Creatinine (test code 0.72 mg/dL 0.50-1.20 = 2160-0) Glucose (test code = 261 mg/dL 70-110 H 2345-7) Calcium (test code = 7.9 mg/dL 8.5-10.5 L 84796-2) EGFR (test code = 97 mL/min/1.73 [place] [address]-3) m NOT ACCURATE CREATININE CLEARANCE IN PREDICTING GLOMERULAR FILTRATION RATE . ESTIMATED GFR I S NOT APPLICABLE FOR DIALYSIS PATIENTS. LINDY (test code = LINDY) Veneer Jointer Offbearer ID - LITOOperator ID - LITOOperator ID - LITOOperator ID - LITOOperator ID - LITOOperator ID - LITOOperator ID - LITOOperator ID - LITOOperator ID - LITOOperator ID - FLORENCIO Lab Interpretation Abnormal (test code = 36642-5) [facility] Metabolic [id number] 05:57:46 Test Item Value Reference Range Interpretation Comments Sodium (test code = 138 meq/L 068-705 2167-2) Potassium (test code 2.9 meq/L 3.6-5.5 L = 2823-3) Chloride (test code = 108 meq/L 98-106 H 2075-0) CO2 (test code = 20 meq/L 20-29 2028-9) BUN (test code = 18 mg/dL 10- 3094-0) Creatinine (test code 0.72 mg/dL 0.50-1.20 = 2160-0) Glucose (test code = 261 mg/dL 70-110 H 2345-7) Calcium (test code = 7.9 mg/dL 8.5-10.5 L 55954-8) EGFR (test code = 97 mL/min/1.[place] [address]-2) m NOT ACCURATE CREATININE CLEARANCE IN PREDICTING GLOMERULAR FILTRATION RATE . ESTIMATED GFR I S NOT APPLICABLE FOR DIALYSIS PATIENTS. LINDY (test code = LINDY) Veneer Jointer Offbearer ID - LITOOperator ID - LITOOperator ID - LITOOperator ID - LITOOperator ID - LITOOperator ID - LITOOperator ID - LITOOperator ID - LITOOperator ID - LITOOperator ID - FLORENCIO Lab Interpretation Abnormal (test code = 06754-4) [facility] METABOLIC [id number] 05:57:46 Test Item Value Reference Range Interpretation Comments SODIUM (BEAKER) 138 meq/L 135-148 (test code = 381) POTASSIUM (BEAKER) 2.9 meq/L 3.6-5.5 L (test code = 379) CHLORIDE (BEAKER) 108 meq/L 98-106 H (test code = 382) CO2 (BEAKER) (test 20 meq/L -29 code = 355) BLOOD UREA NITROGEN 18 mg/dL - (BEAKER) (test code = 354) CREATININE (BEAKER) 0.72 mg/dL 0.50-1.20 (test code = 358) GLUCOSE RANDOM 261 mg/dL 70-110 H (BEAKER) (test code = 652) CALCIUM (BEAKER) 7.9 mg/dL 8.5-10.5 L (test code = 697) EGFR (BEAKER) (test 97 mL/min/1.73 ESTIMA LOS GFR IS code = 1092) sq m NOT ACCURATE CREATININE CLEARANCE IN PREDICTING GLOMERULAR FILTRATION RATE . ESTIMATED GFR I S NOT APPLICABLE FOR DIALYSIS PATIEN TS. Veneer Jointer Offbearer ID - LITOOperator ID - LITOOperator ID - LITOOperator ID - LITOOperator ID - LITOOperator ID - LITOOperator ID - LITOOperator ID - LITOOperator ID - LITOOperator ID - LITOCBC W/PLT COUNT & AUTO [id number] 05:39:45 Test Item Value Reference Range Interpretation [...] H PERCENT (BEAKER) (test code = 2801) [id number] 05:35:53 Test Item Value Reference Range Interpretation Comments D-Dimer, Quant (test 3.03 See_Comment H Final I nformation code = 35673-9) (Auto Output ) [Automated message] The system which generated this result transmitted reference range : <0.50 MG/L FEU. The reference range was not used to interpr et this result as normal/abnormal . LINDY (test code = REGARDING D-DIMER LINDY) RESULTS: The 98% NPV (Negative Predictive Value) for DVT/PE exclusion is 0.50 mg/L FEU as suggested by the laboratory mechanic helper and as approved by the FDA. Lab Interpretation Abnormal (test code = 77171-8) [facility]-[id number] 05:35:53 Test Item Value Reference Range Interpretation Comments D-Dimer, Quant (test 3.03 See_Comment H Final I nformation code = 00141-2) (Auto Output ) [Automated message] The system which generated this result transmitted reference range : <0.50 MG/L FEU. The reference range was not used to interpr et this result as normal/abnormal . LINDY (test code = REGARDING D-DIMER LINDY) RESULTS: The 98% NPV (Negative Predictive Value) for DVT/PE exclusion is 0.50 mg/L FEU as suggested by the laboratory mechanic helper and as approved by the FDA. Lab Interpretation Abnormal (test code = 43678-5) [facility]-[id number] 05:35:53 Test Item Value Reference Range Interpretation Comments D-DIMER QUANTITATIVE 3.03 MG/L FEU <0.50 H Final Information (VIKRAM) (test code = (Auto Output) 671) REGARDING D-DIMER RESULTS: The 98% NPV (Negative Predictive Value) for DVT/PE exclusion is 0.50 mg/LFEU as suggested by the laboratory mechanic helper and as approved by the FDA.POCT-GLUCOSE [id number] 04:52:50 Test Item Value Reference Range Interpretation Comments POC-GLUCOSE METER 242 mg/dL 70-110 H : TESTED A T [facility] 1317 ([facility]) (test code [facility] NT [facility], = 1538) [place] [address]: Veneer Jointer Offbearer/Techni unique ID = [id number] for Di Kolb POCT-GLUCOSE [id number] 20:19:15 Test Item Value Reference Range Interpretation Comments POC-GLUCOSE METER 337 mg/dL 70-110 H : Notified RN/MD: TESTED ([facility]) (test code AT [facility] [address] = 1538) [place] [address]: Veneer Jointer Offbearer/Techni unique ID = [id number] for Di Kolb POCT-GLUCOSE [id number] 16:27:26 Test Item Value Reference Range Interpretation Comments POC-GLUCOSE METER 257 mg/dL 70-110 H : Notified RN/MD: TESTED ([facility]) (test code AT [facility] [address] = 1538) [place] [address]: Veneer Jointer Offbearer/Techni unique ID = [id number] for Ezek iel, Erika POCT-GLUCOSE [id number] 12:39:48 Test Item Value Reference Range Interpretation Comments POC-GLUCOSE METER 187 mg/dL 70-110 H : Notified RN/MD: TESTED ([facility]) (test code AT [facility] [address] = 1538) [place] [address]: Veneer Jointer Offbearer/Techni unique ID = [id number] for Ezek iel, Erika RAD, CHEST, 1 VIEW, NON [id number] 07:37:00Reason for exam:- >pneumoniaShould this be performed at the bedside?->Yes [facility] : 1950 Sex: FFINAL REPORT Chest AP portable semierect Comparison exam: 06/30/2021 History provided: Pneumonia, COVID positive Heart size magnified by projection. Bilateral airspace disease predominating peripherally and at the bases persists consistent with COVID 19 infection. Signed: Jason Delgado Verified Date/Time: 07/03/2021 07:37:18 Reading Location: [facility] Radiology Reading Room POCT-GLUCOSE [id number] 06:33:31 Test Item Value Reference Range Interpretation Comments POC-GLUCOSE METER 286 mg/dL 70-110 H : TESTED A T [facility] [address] (BEAKER) (test code [address], = 1538) [place] [address]: Veneer Jointer Offbearer/Techni unique ID = [id number] for Elizabeth Joshua POCT-GLUCOSE [id number] 21:14:22 Test Item Value Reference Range Interpretation Comments POC-GLUCOSE METER 299 mg/dL 70-110 H : TESTED A T [facility] [address] (BEAKER) (test code [address], = 1538) [facility] [place] 2[place] 77 [address]: Veneer Jointer Offbearer/Techni unique ID = [id number] for Elizabeth Joshua POCT-GLUCOSE [id number] 15:31:54 Test Item Value Reference Range Interpretation Comments POC-GLUCOSE METER 287 mg/dL 70-110 H : TESTED A T [facility] [address] (BEAKER) (test code [address], = 1538) [facility] [place]NOTE 2[place] 77 478: Veneer Jointer Offbearer/Techni unique ID = [id number] for Cerv antes, Crystal POCT-GLUCOSE [id number] 12:06:10 Test Item Value Reference Range Interpretation Comments POC-GLUCOSE METER 259 mg/dL 70-110 H : TESTED A T [facility] [address] (BEAKER) (test code [address], = 1538) [facility] [place]NOTE 2[place] 77 478: Veneer Jointer Offbearer/Techni unique ID = [id number] for Cerv antes, Crystal CT, CHEST WITH IV CONTRAST- PE TEST [id number] 11:13:00Unlisted Reason for Exam - Click Yes and Enter Reason Below->No [facility] : 1950 Sex: FFINAL REPORT [...] Shane Alvarez Verified Date/Time:07/02/2021 11:13:24 Reading Location: [facility] Radiology Reading Room POCT- GLUCOSE [id number] 09:06:02 Test Item Value Reference Range Interpretation Comments POC-GLUCOSE METER 297 mg/dL 70-110 H : TESTED A T [facility] [address] (BEAKER) [address] [facility] [facility] [address] = 15[address]) [place] [address]: Veneer Jointer Offbearer/Techni unique ID = [id number] for Elizabeth Joshua POCT-GLUCOSE [id number] 21:42:04 Test Item Value Reference Range Interpretation Comments POC-GLUCOSE METER 300 mg/dL 70-110 H : TESTED A T [facility] [address] (BEAKER) (test code [address], = 1538) [place] [id number]: Veneer Jointer Offbearer/Techni unique ID = [id number] for Helio Joshualeen POCT-GLUCOSE [id number] 16:47:29 Test Item Value Reference Range Interpretation Comments POC-GLUCOSE METER 179 mg/dL 70-110 H : TESTED A T [facility] [address] (BEAKER) (test code [address], = 1538) [facility] [place]NOTE 2[place] 77 478: Veneer Jointer Offbearer/Techni unique ID = [id number] for Alma Dove VENOUS DOPPLER LEGS, [id number] 12:41:00Reason for exam:->positive d dimerCH[facility]INEName: FREDDIE JEFFERY : 1950 Sex: FFINAL REPORT INDICATION: Positive d-dimer, Covid positive COMPARISONS: None. BILATERAL LOWER EXTREMITY ULTRASOUND: Limited Covid protocol evaluation, grayscale evaluation with compression imaging was obtained of bilateral common femoral, superficial femoral, popliteal, posterior tibial and peroneal veins. Normal compressibility was demonstrated. No intraluminal thrombus was identified.IMPRESSION: No evidence of lower extremity deep vein thrombosis, bilaterally. Signed: Jonnie Song Verified Date/Time: 07/01/2021 12:41:57 Reading Location: [address] OrthoConsult Reading Room CBC W/PLT COUNT & AUTO [id number] 12:17:11 Test Item Value Reference Range Interpretation [...] (BEAKER) (test code Normal = 762) POCT-GLUCOSE [id number] 11:55:02 Test Item Value Reference Range Interpretation Comments POC-GLUCOSE METER 300 mg/dL 70-110 H : TESTED A T [facility] [address] (BEAKER) (test code [address], = 1538) [facility] [place]NOTE 2[place] 77 [address]: Veneer Jointer Offbearer/Techni unique ID = [id number] for Alma Dove COMPREHENSIVE METABOLIC [id number] 10:34:18 Test Item Value Reference Range Interpretation [...] 347) EGFR (BEAKER) (test 80 mL/min/1.73 ESTIMA LOS GFR IS code = 1092) sq m NOT ACCURATE CREATININE CLEARANCE IN PREDICTING GLOMERULAR FILTRATION RATE . ESTIMATED GFR I S NOT APPLICABLE FOR DIALYSIS PATIEN TS. Veneer Jointer Offbearer ID - [id number] ID - wosm88Lwdemqvi ID - cvrq87Aqnshsio ID - dwcw42Avcukryw ID - qccj83Nvohjtwr ID - oamq07Wbxabvna ID - vfnl15Fbvaewhv ID - ffem80Nogdtice ID - tfbg21Tnvjbjep ID - pbpu37Dehnsdjl ID - adlp99Hdpmxjgh ID - vvtv33Dcbvzhgv ID - jpcy92Vmqiivok ID - xcto93Sntfylrb ID - eort56Uuwqyubp ID - bdae25Sqlwkhlz ID - kdrs43Kqibvsbr ID - oovr65Ykwrdhqo ID - bhad98G-RBNABCZC [id number] 10:26:23 Test Item Value Reference Range Interpretation Comments C-REACTIVE PROTEIN ([facility]) (test 0.89 mg/dL 0.00-0.50 H code = 676) Veneer Jointer Offbearer ID - ytqe19B-MLRBE0274-12-25 10:24:05 Test Item Value Reference Range Interpretation Comments D-DIMER QUANTITATIVE 3.37 MG/L FEU <0.50 H Final Information ([facility]) (test code = (Auto Output) 671) REGARDING D-DIMER RESULTS: The 98% NPV (Negative Predictive Value) for DVT/PE exclusion is 0.50 mg/LFEU as suggested by the laboratory mechanic helper and as approved by the FDA.POCT-GLUCOSE [id number] 06:44:39 Test Item Value Reference Range Interpretation Comments POC-GLUCOSE METER 275 mg/dL 70-110 H : TESTED A T [facility] 1317 ([facility]) (test code [facility] NT [facility], = 1538) [facility] [place]NOTE 2[place] 77 478: Veneer Jointer Offbearer/Techni unique ID = [id number] for Brow n, Elizabeth POCT-GLUCOSE [id number] 21:22:38 Test Item Value Reference Range Interpretation Comments POC-GLUCOSE METER 425 mg/dL 70-110 HH : Notified RN/MD: TESTED ([employer]) (test code AT [facility] [address] = 1538) [address], [facility] [place]NOTE 2] [address]: Veneer Jointer Offbearer/Techni unique ID = [id number] for Brow n, Elizabeth POCT-GLUCOSE [id number] 16:28:18 Test Item Value Reference Range Interpretation Comments POC-GLUCOSE METER 432 mg/dL 70-110 HH : Notified RN/MD: TESTED ([facility]) (test code AT [facility] [address] = 1538) [address], [facility] [place] [place] [address]: Veneer Jointer Offbearer/Techni unique ID = [id number] for Piyush Mccain POCT-GLUCOSE [id number] 11:49:50 Test Item Value Reference Range Interpretation Comments POC-GLUCOSE METER 376 mg/dL 70-110 H : [facility] (test code [address] [facility], = 1538) [facility] [place] [address]: Veneer Jointer Offbearer/Techni unique ID = [id number] for Alma Dove RAD, CHEST, 1 VIEW, NON [id number] 09:25:00Reason for exam:- >pneumoniaShould this be performed at the bedside?->Yes [facility] : 1950 Sex: FFINAL REPORT RAD, CHEST, 1 VIEW, NON DEPT INDICATION: pneumonia COMPARISON: 06/29/2021 FINDINGS: Portable frontal view of the chest. IMPRESSION: Support Lines: None Lungsand pleura: Unchanged bibasilar airspace disease No significant pneumothorax. Heart and mediastinum:Stable contours. Additional findings: None. Signed: Lydia Tapia Verified Date/Time: 06/30/2021 09:25:48 Reading Location: [address] Neuro Reading Room -GLUCOSE [id number] 06:32:32 Test Item Value Reference Range Interpretation Comments POC-GLUCOSE METER 327 mg/dL 70-110 H : Notified RN/MD: TESTED (BEAKER) (test code AT [facility] [address] = 1538) [place] [address]: Veneer Jointer Offbearer/Techni unique ID = [id number] for Asya Estes COMPREHENSIVE METABOLIC [id number] 05:27:30 Test Item Value Reference Range Interpretation [...] 347) EGFR (BEAKER) (test 56 mL/min/1.73 ESTIMA LOS GFR IS code = 1092) sq m NOT ACCURATE CREATININE CLEARANCE IN PREDICTING GLOMERULAR FILTRATION RATE . ESTIMATED GFR I S NOT APPLICABLE FOR DIALYSIS PATIEN TS. Veneer Jointer Offbearer ID - [id number] ID - QYDI19Osroxqrc ID - ZLVC93Uujaomvu ID - TPWP37Khgqloke ID - XTNS15Ilnllfhq ID - DZGL56Okbthvyd ID - USFB57Sogbzmsn ID - EYMW27Athumxee ID - YLSN65Pnavwhmi ID - WBHO76Ffmisse function [id number] 05:27:10 Test Item Value Reference Range Interpretation Comments Protein, Total (test 4.5 See_Comment L [Autom ated code = 2885-2) message] The system which generated this result transmit los reference range : 6.0 - 8.5 gm/dL . The reference range was not u sed to interpret th is result as normal/abnormal . Albumin (test code = 2.5 g/dL 3.5-5.0 L 85466-6) Total Bilirubin (test 0.4 mg/dL 0.1-1.2 code = 1974-) Bilirubin, Direct 0.2 mg/dL 0.0-0.4 (test code = 1967-) Alkaline Phosphatase 39 U/L 30-115 (test code = 6768-6) AST (test code = 23 U/L 5-40 1920-8) ALT (test code = 50 U/L 5-50 1741-6) LINDY (test code = LINDY) Veneer Jointer Offbearer ID - [id number] ID - UEBU48Yyhhopee ID - YQVL46Hhodnonk ID - IQKX12Jvrrteki ID - DQBJ12Okudenhw ID - EDML05Xsvyjeai ID - [id number] Lab Interpretation Abnormal (test code = 96771-7) [facility] [id number] 05:27:10 Test Item Value Reference Range Interpretation Comments Protein, Total (test 4.5 See_Comment L [Autom ated code = 2885-2) message] The system which generated this result transmit los reference range : 6.0 - 8.5 gm/dL . The reference range was not u sed to interpret th is result as normal/abnormal . Albumin (test code = 2.5 g/dL 3.5-5.0 L 32237-8) Total Bilirubin (test 0.4 mg/dL 0.1-1.2 code = 1974-) Bilirubin, Direct 0.2 mg/dL 0.0-0.4 (test code = 1967-) Alkaline Phosphatase 39 U/L 30-115 (test code = 6768-6) AST (test code = 23 U/L 5-40 1920-8) ALT (test code = 50 U/L 5-50 1742-6) LINDY (test code = LINDY) Veneer Jointer Offbearer ID - [id number] ID - KDQA85Lvrbqvhv ID - SMZN25Fwtsphmh ID - PREA87Cbotdrgk ID - GARE59Opleyopw ID - TBFN36Gwagbarw ID - [id number] Lab Interpretation Abnormal (test code = 11828-5) [facility]AT[facility] FUNCTION [id number] 05:27:10 Test Item Value Reference Range Interpretation [...] (test code = 50 U/L 5-50 347) V[employer] Offbearer ID - [id number] ID - [id number] ID - [id number] ID - [id number] ID - [id number] ID - [id number] ID - [id number] panel 2021-06-30 05:27:05 Test Item Value Reference Range Interpretation Comments Triglycerides (test 172 mg/dL code = 2571-8) Cholesterol (test code 157 mg/dL = 2093-3) HDL (test code = 27 mg/dL 5-9) LDL Calculated (test 96 mg/dL code = 00564-8) LINDY (test code = LINDY) Triglyceride Reference Range: Low Risk <150 Borderline 150-199 High Risk 200-499 Very High Risk >=500 Cholesterol Reference Range: Low Risk <200 Borderline 200-239 High Risk >240 HDL Cholesterol Reference Range: Low Risk >=60 High Risk <40 LDL Cholesterol Reference Range: Optimal <100 Near Optimal 100-129 Borderline 130-159 High 160-189 Very High >=190 [employer] Offbearer ID - [id number] ID - [id number] ID - [id number] [id number] 05:27:05 Test Item Value Reference Range Interpretation Comments Triglycerides (test 172 mg/dL code = 2571-8) Cholesterol (test code 157 mg/dL = 2093-3) HDL (test code = 27 mg/dL 2085-9) LDL Calculated (test 96 mg/dL code = 27165-6) LINDY (test code = LINDY) Triglyceride Reference Range: Low Risk <150 Borderline 150-199 High Risk 200-499 Very High Risk >=500 Cholesterol Reference Range: Low Risk <200 Borderline 200-239 High Risk >240 HDL Cholesterol Reference Range: Low Risk >=60 High Risk <40 LDL Cholesterol Reference Range: Optimal <100 Near Optimal 100-129 Borderline 130-159 High 160-189 Very High >=190 Veneer Jointer Offbearer ID - [id number] ID - [id number] ID - [id number] [facility] HospitalLIPID [id number] 05:27:05 Test Item Value Reference Range Interpretation [...] Borderline 130-159 High 160-189 Very High >=190 Veneer Jointer Offbearer ID - [id number] ID - [id number] ID - [id number] 2021-06-30 05:26:48 Test Item Value Reference Range Interpretation Comments MAGNESIUM (BEAKER) (test code = 2.2 mg/dL 1.5-3.0 627) Veneer Jointer Offbearer ID - [id number] ID - [id number] ID - [id number] ID - [id number] Prothrombin time/[id number] 05:10:20 Test Item Value Reference Interpretation Comments Range Protime (test code = 11.0 See_Comment Final 5902-2) Information (Auto Output) [Automated message] The system which generated this result transmitted reference range : 9.3 - 12.0 seconds. The reference range was not used to interpret this result as normal/abnormal . INR (test code = 0.99 See_Comment Final 6301-6) Information (Auto Output) [Automated message] The system which generated this result transmitted reference range : <=5.90. The reference range was not used to interpret this result as normal/abnormal . LINDY (test code = RECOMMENDED LINDY) COUMADIN/WARFARIN INR THERAPY RANGESSTANDARD DOSE: 2.0 - 3.0 Includes: PROPHYLAXIS for venous thrombosis, systemic embolization; TREATMENT for venous thrombosis and/or pulmonary embolus.HIGH RISK: Target INR is 2.5-3.5 for patients with mechanical heart valves. Lab Interpretation Normal (test code = 56435-6) [facility] HospitalProthrombin time/[id number] 05:10:20 Test Item Value Reference Interpretation Comments Range Protime (test code = 11.0 See_Comment Final 5902-2) Information (Auto Output) [Automated message] The system which generated this result transmitted reference range : 9.3 - 12.0 seconds. The reference range was not used to interpret this result as normal/abnormal . INR (test code = 0.99 See_Comment Final 6301-6) Information (Auto Output) [Automated message] The system which generated this result transmitted reference range : <=5.90. The reference range was not used to interpret this result as normal/abnormal . LINDY (test code = RECOMMENDED LINDY) COUMADIN/WARFARIN INR THERAPY RANGESSTANDARD DOSE: 2.0 - 3.0 Includes: PROPHYLAXIS for venous thrombosis, systemic embolization; TREATMENT for venous thrombosis and/or pulmonary embolus.HIGH RISK: Target INR is 2.5-3.5 for patients with mechanical heart valves. Lab Interpretation Normal (test code = 55092-1) [facility] HospitalPROTHROMBIN TIME/[id number] 05:10:20 Test Item Value Reference Range Interpretation Comments PROTIME (BEAKER) 11.0 seconds 9.3-12.0 Final Infor mation (test code = 759) (Auto Outp ut) INR (BEAKER) (test 0.99 See_Comment Final Inf ormation code = 370) (Auto Output) [Automated mess age] The system [employer] generated this result transmitted ref erence range: [...] PERCENT (BEAKER) (test code = 2801) POCT-GLUCOSE [id number] 19:32:11 Test Item Value Reference Range Interpretation Comments POC-GLUCOSE METER 296 mg/dL 70-110 H : Notified RN/MD: TESTED (BEAKER) (test code AT [address] = 1538) [facility] [address]: Veneer Jointer Offbearer/Techni unique ID = [id number] for Asya Estes Osmolality, [id number] 16:45:57 Test Item Value Reference Range Interpretation Comments Osmolality, Ur (test code 785 See_Comment [ Automated message] = 2695-5) The system Qgiv generated this result transmitted ref erence range: 50-1,200 mOsm/kg mOsm/kg . The reference range was not used to int erpret this result as normal/abnormal . Lab Interpretation (test Normal code = 86345-0) [facility] HospitalOsmolality, [id number] 16:45:57 Test Item Value Reference Range Interpretation Comments Osmolality, Ur (test code 785 See_Comment [ Automated message] = 2695-5) The system Qgiv generated this result transmitted ref erence range: 50-1,200 mOsm/kg mOsm/kg . The reference range was not used to int erpret this result as normal/abnormal . Lab Interpretation (test Normal code = 86062-2) [facility] HospitalOSMOLALITY, [id number] 16:45:57 Test Item Value Reference Range Interpretation Comments OSMOLALITY URINE 785 mOsm/kg See_Comment [Automated message] (VIKRAM) (test code = The sy stem which 614) generated this result transmitted ref erence range: 50-1,200 mOsm/kg. The reference range was not used to int erpret this result as normal/abnormal . POCT-GLUCOSE [id number] 16:11:12 Test Item Value Reference Range Interpretation Comments POC-GLUCOSE METER 262 mg/dL 70-110 H : TESTED A T [address] ([employer]) (test code [address], = 1538) [place] [id number]: Veneer Jointer Offbearer/Techni unique ID = [id number] for Sawy er, Kyra C-REACTIVE [id number] 12:51:06 Test Item Value Reference Range Interpretation Comments C-REACTIVE PROTEIN ([employer]) (test 1.05 mg/dL 0.00-0.50 H code = 676) Veneer Jointer Offbearer ID - [id number] 12:46:27 Test Item Value Reference Range Interpretation Comments D-DIMER QUANTITATIVE 0.40 MG/L FEU <0.50 Final Information (VIKRAM) (test code = (Auto Output) 674) REGARDING D-DIMER RESULTS: The 98% NPV (Negative Predictive Value) for DVT/PE exclusion is 0.50 mg/LFEU as suggested by the laboratory mechanic helper and as approved by the FDA.POCT-GLUCOSE [id number] 11:18:02 Test Item Value Reference Range Interpretation Comments POC-GLUCOSE METER 280 mg/dL 70-110 H : TESTED A T [address] ([employer]) (test code [address], = 1538) [place] [id number]: Veneer Jointer Offbearer/Techni unique ID = [id number] for Sawy er, Kyra RAD, CHEST, 1 VIEW, NON [id number] 10:20:00Reason for exam:->COVID PneumoniaShould this be performed at the bedside?->Yes [facility] MED[facility]INEName: FREDDIE JEFFERY : 1950 Sex: FFINAL REPORT [...] consistent with provided history of Covid-19 pneumonia. Signed:Vini Vo MDReport Verified Date/Time: 06/29/2021 10:20:49 Reading Location: [facility] Radiology Reading Room Urinalysis w/[id number] 10:08:29 Test Item Value Reference Range Interpretation Comments Color, UA (test code = Yellow 5778-6) Clarity, UA (test code Clear = 5767-9) Specific [place], UA >1.030 1.001-1.035 (test code = 5811-5) pH, UA (test code = 5.0 5.0-8.0 5803-2) Protein, UA (test code Trace Negative A = 80295-8) Glucose, UA (test code Negative Negative = 365) Ketones, UA (test code Trace Negative A = 2514-8) Bilirubin, UA (test Negative Negative code = 79972-9) Blood, UA (test code = Moderate Negative A 38573-9) Nitrite, UA (test code Negative Negative = 5802-4) Leukocytes, UA (test Small Negative A code = 5799-2) Urobilinogen, UA (test 0.2 mg/dL 0.2-1.0 code = 47634-1) Bacteria, UA (test code Occasional = 73740-2) Yeast (test code = Moderate 84016-5) RBC, UA (test code = <5 See_Comment [Autom ated message] 799-7) The system Qgiv generated this result transmit los reference range : /HPF. The refer ence range was not u sed to interpret th is result as normal/abnormal . WBC, UA (test code = 10-20 See_Comment [Autom ated message] 36981-0) The system Qgiv generated this result transmit los reference range : /HPF. The refer ence range was not u sed to interpret th is result as normal/abnormal . SQUAMOUS EPITHELIAL 5-10 See_Comment [Automa los message] (test code = 75358-5) The sy stem which generated this result transmit los reference range : /HPF. The refer ence range was not u sed to interpret th is result as normal/abnormal . Specimen Source (test code = 2795) Lab Interpretation Abnormal (test code = 25372-0) [facility] HospitalUrinalysis w/[id number] 10:08:29 Test Item Value Reference Range Interpretation Comments Color, UA (test code = Yellow 5778-6) Clarity, UA (test code Clear = 5767-9) Specific [place], UA >1.030 1.001-1.035 (test code = 5811-5) pH, UA (test code = 5.0 5.0-8.0 5803-2) Protein, UA (test code Trace Negative A = 50279-3) Glucose, UA (test code Negative Negative = 365) Ketones, UA (test code Trace Negative A = 2514-8) Bilirubin, UA (test Negative Negative code = 75342-7) Blood, UA (test code = Moderate Negative A 32480-7) Nitrite, UA (test code Negative Negative = 5802-4) Leukocytes, UA (test Small Negative A code = 5799-2) Urobilinogen, UA (test 0.2 mg/dL 0.2-1.0 code = 18401-5) Bacteria, UA (test code Occasional = 67514-1) Yeast (test code = Moderate 13158-7) RBC, UA (test code = <5 See_Comment [Autom ated message] 799-7) The system Qgiv generated this result transmit los reference range : /HPF. The refer ence range was not u sed to interpret th is result as normal/abnormal . WBC, UA (test code = 10-20 See_Comment [Autom ated message] 81534-0) The system [employer] h generated this result transmit los reference range : /HPF. The refer ence range was not u sed to interpret th is result as normal/abnormal . SQUAMOUS EPITHELIAL 5-10 See_Comment [Automa los message] (test code = 85138-8) The sy stem which generated this result transmit los reference range : /HPF. The refer ence range was not u sed to interpret th is result as normal/abnormal . Specimen Source (test code = 2795) Lab Interpretation Abnormal (test code = 10013-3) [facility] HospitalURINALYSIS W/ [id number] 10:08:29 Test Item Value Reference Range Interpretation [...] = 1663) SOURCE(BEAKER) (test code = 2795) Protein, random [id number] 09:23:05 Test Item Value Reference Range Interpretation Comments Protein, Urine (test code 45 mg/dL 0-14 H = 2888-6) LINDY (test code = LINDY) Veneer Jointer Offbearer ID - DSTO Lab Interpretation (test Abnormal code = 24508-5) [facility] HospitalProtein, random [id number] 09:23:05 Test Item Value Reference Range Interpretation Comments Protein, Urine (test code 45 mg/dL 0-14 H = 2888-6) LINDY (test code = LINDY) Veneer Jointer Offbearer ID - DSTO Lab Interpretation (test Abnormal code = 53705-4) [facility] HospitalPROTEIN, RANDOM [id number] 09:23:05 Test Item Value Reference Range Interpretation Comments PROTEIN, URINE (BEAKER) (test code = 45 mg/dL 0-14 H 1569) Veneer Jointer Offbearer ID - EMPERATRIZCreatinine, random [id number] 09:22:49 Test Item Value Reference Range Interpretation Comments Creatinine, Ur 145.7 mg/dL (test code = 2161-8) LINDY (test code = Reference Range: No LINDY) NormalsOperator ID - [facility] StanfordCreatinine, random [id number] 09:22:49 Test Item Value Reference Range Interpretation Comments Creatinine, Ur 145.7 mg/dL (test code = 2161-8) LINDY (test code = Reference Range: No LINDY) NormalsOperator ID - [facility] StanfordCREATININE, RANDOM [id number] 09:22:49 Test Item Value Reference Range Interpretation Comments CREATININE URINE (BEAKER) (test 145.7 mg/dL code = 375) Reference Range: No NormalsOperator ID - [facility]odium, random [id number] 09:18:51 Test Item Value Reference Range Interpretation Comments Sodium Urine (test 35 meq/L code = 2955-3) LINDY (test code = Reference Range: No LINDY) NormalsOperator ID - DSNorthridge Hospital Medical Centerodium, random [id number] 09:18:51 Test Item Value Reference Range Interpretation Comments Sodium Urine (test 35 meq/L code = 2955-3) LINDY (test code = Reference Range: No LINDY) NormalsOperator ID - DSENSON [facility] HospitalODIUM, RANDOM [id number] 09:18:51 Test Item Value Reference Range Interpretation Comments SODIUM URINE (BEAKER) (test code = 35 meq/L 243) Reference Range: No NormalsOperator ID - DSENSONPotassium, random urine 2021-06-29 09:15:34 Test Item Value Reference Range Interpretation Comments Potassium Urine 75.5 meq/L (test code = 2828-2) LINDY (test code = Reference Range: No LINDY) NormalsOperator ID - DSKaiser Permanente Medical CenterPotassium, random [id number] 09:15:34 Test Item Value Reference Range Interpretation Comments Potassium Urine 75.5 meq/L (test code = 2828-2) LINDY (test code = Reference Range: No LINDY) NormalsOperator ID - DSKaiser Permanente Medical CenterPOTASSIUM, RANDOM [id number] 09:15:34 Test Item Value Reference Range Interpretation Comments POTASSIUM URINE (BEAKER) (test 75.5 meq/L code = 195) Reference Range: No NormalsOperator ID - DSENSONBASIC METABOLIC [id number] 08:55:08 Test Item Value Reference Range Interpretation [...] 697) EGFR (BEAKER) (test 59 mL/min/1.73 ESTIMA LOS GFR IS code = 1092) sq m NOT ACCURATE CREATININE CLEARANCE IN PREDICTING GLOMERULAR FILTRATION RATE . ESTIMATED GFR I S NOT APPLICABLE FOR DIALYSIS PATIEN TS. Veneer Jointer Offbearer ID - DSENSONOperator ID - DSENSONOperator ID - DSENSONOperator ID - DSENSONOperator ID - DSENSONOperator ID - DSENSONOperator ID - DSENSONOperator ID - DSENSONOperator ID - DSENSONOperator ID - DSENSONOperator ID - DSENSONOperator ID - DSENSONOperator ID - DSENSONOperator ID - DSENSONOperatorID - DSENSONOperator ID - DSENSONOperator ID - DSENSONOperator ID - DSENSONOperator ID - DSENSONOperator ID - DSENSONLIPID [id number] 05:02:00 Test Item Value Reference Range Interpretation [...] Borderline 130-159 High 160-189 Very High >=190 Veneer Jointer Offbearer ID - LITOOperator ID - LITOOperator ID - LITOOperator ID - LITOOperator ID - LITOOperator ID - LITOHEPATIC FUNCTION [id number] 04:37:26 Test Item Value Reference Range Interpretation [...] Specimen slightly (test code = 347) hemolyzed Veneer Jointer Offbearer ID - LITOOperator ID - LITOOperator ID - LITOOperator ID - LITOOperator ID - LITOOperator ID - LITOOperator ID - LITOPROTHROMBIN TIME/[id number] 04:23:54 Test Item Value Reference Range Interpretation Comments PROTIME (BEAKER) 11.4 seconds 9.3-12.0 Final Infor mation (test code = 759) (Auto Outp ut) INR (BEAKER) (test 1.03 See_Comment Final Inf ormation code = 370) (Auto Output) [Automated mess age] The system Qgiv generated this result transmitted ref erence range: [...] 0-0 H PERCENT (BEAKER) (test code = 3606)
[2022-01-31] MEDS ORDERED: AMIODARONE HCL 150 MG/3 ML INJ IV ONE (13:42)
[2022-01-31] MEDS ORDERED: D5W 100 ML IV ONE (13:42)
[2022-01-31 13:47] LABS: Absolute Lymphocytes (CBC) 2.6 K/uL (0.7-4.9); Hematocrit 32.9 % (36.0-45.0); MPV 8.3 fL (7.6-11.3); Protime INR 1.16; RBC Red Blood Cell Count 3.48 M/uL (3.86-4.86)
[2022-01-31] MEDS ORDERED: AMIODARONE HCL 900 MG in Dextrose 5%-Water 482 ML IV SCH ×2 (14:00→17:00)
[2022-01-31 14:01] LABS: Magnesium 1.9 mg/dL (1.8-2.4); Potassium 3.3 mmol/L (3.5-5.1); Troponin High Sensitivity 42.4 pg/mL (<58.9)
--- NOTE | 2022-01-31 14:24 | RAD REPORT ---
EXAM DESCRIPTION: RAD - Chest Single View - 01/31/2022 2:10 pm CLINICAL HISTORY: CONGESTION COMPARISON: Chest Single View dated 08/31/2021; Chest Single View dated 08/22/2021; Chest Single Vie w dated 07/27/2021; Chest Single View dated 07/26/2021; Abdomen Pelvis W Contrast dated 08/31/2021 FINDINGS: Lines: None. Lungs: Increased prominence of the pulmonary interstitium. Patchy infiltrate present within the lung bases, left greater than right. Pleural: Pleural based chronic thickening on the right lung peripherally. Cardiac: The heart size is within normal limits. Bones: No acute fractures. Other: IMPRESSION: Prominence of the pulmonary interstitium as well as some more patchy airspace disease in the lung bases is primarily chronic. Difficult to entirely exclude an acute superimposed infectious process at the left lung base.
--- NOTE | 2022-01-31 14:55 | ER ---
Nurse's Notes [facility] [place] Name: Marry Chowdary Age: 71 yrs Sex: Female : 1950 Arrival Date: 01/31/2022 Time: 12:54 Bed 20 Private MD: Wolfgang Noriega R Diagnosis: Unspecified atrial fibrillation-With rapid ventricular rate Presentation: 01/31 12:59 Chief complaint: Patient states: "I went to my doctor this morning and he sent me here. ab2 He was checking my heart rate and they told me it was irregular." Pt states she went to Dr. Jose. Pt denies chest pain, SOB and palpitations. Coronavirus screen: Vaccine status: Patient reports receiving the 2nd dose of the covid vaccine. Client denies travel out of the [place] in the last 14 days. Ebola Screen: Patient negative for fever greater than or equal to 101.5 degrees Fahrenheit, and additional compatible Ebola Virus Disease symptoms Patient denies exposure to infectious person. Patient denies travel to an Ebola-affected area in the 21 days before illness onset. No symptoms or risks identified at this time. Initial Sepsis Screen: Does the patient meet any 2 criteria? No. Patient's initial sepsis screen is negative. Does the patient have a suspected source of infection? No. Patient's initial sepsis screen is negative. Risk Assessment: Do you want to hurt yourself or someone else? Patient reports no desire to harm self or others. Onset of symptoms is unknown. 12:59 Method Of Arrival: Wheelchair ab2 12:59 Acuity: MOSES 3 ab2 Triage Assessment: 13:01 General: Appears in no apparent distress. comfortable, Behavior is calm, cooperative, ab2 appropriate for age. Pain: Denies pain. Neuro: Level of Consciousness is awake, alert, obeys commands, Oriented to person, place, time, situation, Appropriate for age. Cardiovascular: No deficits noted. Denies chest pain, shortness of breath, Patient's skin is warm and dry. Parent/caregiver reports patient has had irregular pulse. Respiratory: Airway is patent Respiratory effort is even, unlabored, Respiratory pattern is regular, symmetrical. GI: No deficits noted. No signs and/or symptoms were reported involving the gastrointestinal system. Historical: - Allergies: 13:01 No Known Allergies; ab2 - PMHx: 13:01 Arthritis; Hyperlipidemia; Hypertension; ab2 - PSHx: 13:01 Cholecystectomy; hysterectomy; ab2 - Immunization history:: Adult Immunizations up to date. - Social history:: Patient/guardian denies using alcohol, street drugs, The patient lives with family, Smoking status: Patient denies any tobacco usage or history of. Screenin:05 Abuse screen: Denies threats or abuse. Denies injuries from another. Nutritional bp screening: No deficits noted. Tuberculosis screening: No symptoms or risk factors identified. Fall Risk None identified. Assessment: 13:05 General: SEE TRIAGE NOTE. Pain: Denies pain. Pain does not radiate. Pain began N/A. bp 14:00 Reassessment: No changes from previously documented assessment. Patient and/or family bp updated on plan of care and expected duration. Pain level reassessed. 19:18 General: Appears in no apparent distress. Pain: Denies pain. Neuro: Level of kd3 Consciousness is awake, alert, obeys commands, Oriented to person, place, time, situation. Cardiovascular: Patient's skin is warm and dry. Respiratory: Airway is patent Trachea midline Respiratory effort is even, unlabored, Respiratory pattern is regular. Vital Signs: 12:59 BP 156 / 104; Pulse 104; Resp 19; Temp 97.8; Pulse Ox 99% on R/A; Weight 82.1 kg; ab2 Height 5 ft. 7 in. (170.18 cm); Pain 0/10; 14:00 BP 145 / 92; Pulse 88; Resp 21; Pulse Ox 97% ; bp 12:59 Body Mass Index 28.35 (82.10 kg, 170.18 cm) ab2 ED Course: 12:54 Patient arrived in ED. am2 12:54 Wolfgang Noriega MD is Private Physician. am2 12:55 Bell Mcgee MD is Attending Physician. ma2 13:01 Triage completed. ab2 13:02 Dionicio Schrader, DESTIN is Primary Nurse. bp 13:02 Arm band placed on right wrist. ab2 13:05 Patient has correct armband on for positive identification. Bed in low position. Call bp light in reach. Side rails up X2. Adult w/ patient. clinical research monitor on. Pulse ox on. NIBP on. 13:25 Inserted saline lock: 22 gauge in right forearm, using aseptic technique. Blood bp collected. 13:35 SARS-COV-2 RT PCR (Document "Date of Onset" if Symptomatic) Sent. bp 14:12 XRAY Chest (1 view) In Process Unspecified. EDMS 14:54 Bell Izquierdo MD is Hospitalizing Provider. ma2 19:18 Patient maintains SpO2 saturation greater than 95% on room air. kd3 21:03 No provider procedures requiring assistance completed. Patient admitted, IV remains in kd3 place. Administered Medications: 12:57 CANCELLED (Duplicate Order): Eliquis (apixaban) 5 mg PO once ma2 13:44 Drug: amiodarone 150 mg Volume: 100 ml; Route: IVPB; Infused Over: 10 mins; Site: right bp forearm; 19:19 Follow up: IV Status: Completed infusion kd3 14:00 Drug: amiodarone 900 mg, D5W 500 ml Route: IVPB; Rate: 1 mg/min; Site: right forearm; bp 19:19 Follow up: IV Status: Completed infusion kd3 Outcome: 14:54 Decision to Hospitalize by Provider. ma2 19:51 Discharged to attempted to call report to the floor. will call back kd3 21:03 Condition: stable kd3 21:03 Discharge instructions given to patient, Instructed on the need for admit, Demonstrated understanding of instructions, follow-up care. 21:03 Patient left the ED. kd3 Signatures: Dispatcher [employer] EDGA Aure Petersen am2 Dionicio Schrader RN RN Bell Mcgee MD MD me2 Gina Campos RN RN 3 [facility] [employer]: (The following items were deleted from the chart) 19:36 19:28 Reassessment: Patient is alert, oriented x 3, equal unlabored respirations, skin kd3 warm/dry/pink. pt amiodarone orders state to run at a rate of 1 mg/min for 6 hrs and then change to 0.5 mg/ min. pt current hr is 82 bpm NSR with occasional PVC's. rate changed now to 0.5 mg/min. will report to the floor. kd3
--- NOTE | 2022-01-31 14:55 | EDPHYS ---
Physician Documentation [facility] Name: Marry Chowdary Age: 71 yrs Sex: Female : 1950 Arrival Date: 01/31/2022 Time: 12:54 Bed 20 Private MD: Wolfgang Noriega R ED Physician Bell Mcgee HPI: 01/31 12:57 This 71 yrs old Black Female presents to ER via Unassigned with complaints of Irregular ma2 Pulse. 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 Cooley who advised ma2 that this is an A. fib patient who has been having rate running around 110, and he would like him to come to ER to be admitted for amiodarone infusion. Dr. Cooley advised to start amiodarone at 150 mg IV over 10 minutes, and then start an infusion of amiodarone 1 mg/min for 6 hours then lower rate to 0.5 mg/min for 16 hours. Historical: - Allergies: 13:01 No Known Allergies; ab2 - PMHx: 13:01 Arthritis; Hyperlipidemia; Hypertension; ab2 - PSHx: 13:01 Cholecystectomy; hysterectomy; ab2 - Immunization history:: Adult Immunizations up to date. - Social history:: Patient/guardian denies using alcohol, street drugs, The patient lives with family, Smoking status: Patient denies any tobacco usage or history of. ROS: 12:57 Constitutional: Negative for fever, chills, and weight loss. ma2 12:57 All other systems are negative. Exam: 12:57 Constitutional: This is a well developed, well nourished patient who is awake, alert, ma2 and in no acute distress. Head/Face: Normocephalic, atraumatic. Eyes: Pupils equal round and reactive to light, extra-ocular motions intact. Lids and lashes normal. Conjunctiva and sclera are non-icteric and not injected. Cornea within normal limits. Periorbital areas with no swelling, redness, or edema. ENT: Nares patent. No nasal discharge, no septal abnormalities noted. Tympanic membranes are normal and external auditory canals are clear. Oropharynx with no redness, swelling, or masses, exudates, or evidence of obstruction, uvula midline. Mucous membranes moist. Neck: Trachea midline, no thyromegaly or masses palpated, and no cervical lymphadenopathy. Supple, full range of motion without nuchal rigidity, or vertebral point tenderness. No Meningismus. Chest/axilla: Normal chest wall appearance and motion. Nontender with no deformity. No lesions are appreciated. Cardiovascular: Irregular heart rate of 110 bpm a normal S1 and S2. No gallops, murmurs, or rubs. Normal PMI, no JVD. No pulse deficits. Respiratory: Lungs have equal breath sounds bilaterally, clear to auscultation and percussion. No rales, rhonchi or wheezes noted. No increased work of breathing, no retractions or nasal flaring. Abdomen/GI: Soft, non-tender, with normal bowel sounds. No distension or tympany. No guarding or rebound. No evidence of tenderness throughout. Back: No spinal tenderness. No costovertebral tenderness. Full range of motion. Skin: Warm, dry with normal turgor. Normal color with no rashes, no lesions, and no evidence of cellulitis. MS/ Extremity: Pulses equal, no cyanosis. Neurovascular intact. Full, normal range of motion. Neuro: Awake and alert, GCS 15, oriented to person, place, time, and situation. Cranial nerves II-XII grossly intact. Motor strength 5/5 in all extremities. Sensory grossly intact. Cerebellar exam normal. Normal gait. Vital Signs: 12:59 BP 156 / 104; Pulse 104; Resp 19; Temp 97.8; Pulse Ox 99% on R/A; Weight 82.1 kg; ab2 Height 5 ft. 7 in. (170.18 cm); Pain 0/10; 14:00 BP 145 / 92; Pulse 88; Resp 21; Pulse Ox 97% ; bp 12:59 Body Mass Index 28.35 (82.10 kg, 170.18 cm) ab2 MDM: 14:47 Differential diagnosis: arrythmia, dehydration, stress disorder. Data reviewed: vital ma2 signs, nurses notes. Counseling: I had a detailed discussion with the patient and/or guardian regarding: the historical points, exam findings, and any diagnostic results supporting the discharge/admit diagnosis, the presence of at least one elevated blood pressure reading (>120/80) during this emergency department visit, the need for further work-up and treatment in the hospital. Response to treatment: the patient's symptoms have markedly improved after treatment. 14:54 Patient medically screened. nv2 01/31 12:56 Order name: Basic Metabolic Panel; Complete Time: 17:52 ma2 01/31 12:56 Order name: CBC with Diff; Complete Time: 17:52 nv2 01/31 12:56 Order name: Magnesium; Complete Time: 17:52 nv2 01/31 12:56 Order name: NT PRO-BNP; Complete Time: 17:52 nv2 01/31 12:56 Order name: PT-INR; Complete Time: 17:52 nv2 01/31 12:56 Order name: Troponin HS; Complete Time: 17:52 nv2 01/31 12:59 Order name: SARS-COV-2 RT PCR (Document "Date of Onset" if Symptomatic); Complete Time: ma2 17:01/31 16:11 Order name: CBC with Automated Diff EDMS 01/31 16:11 Order name: CBC with Automated Diff EDMS 01/31 16:11 Order name: Comprehensive Metabolic Panel EDMS 01/31 16:11 Order name: Comprehensive Metabolic Panel EDMS 01/31 16:11 Order name: Magnesium EDMS 01/31 16:11 Order name: Magnesium EDMS 01/31 16:11 Order name: NT PRO-BNP EDMS 01/31 12:56 Order name: XRAY Chest (1 view); Complete Time: 17:52 nv2 01/31 12:56 Order name: EKG; Complete Time: 12:57 nv2 01/31 12:56 Order name: Cardiac monitoring; Complete Time: 13:25 nv2 01/31 12:56 Order name: EKG - Nurse/Tech; Complete Time: 13:25 nv2 01/31 12:56 Order name: IV Saline Lock; Complete Time: 13:25 nv2 01/31 16:11 Order name: CONS Physician Consult EDMS 01/31 16:11 Order name: Heart Healthy EDMS 01/31 16:11 Order name: Echo with Doppler EDMS 01/31 16:11 Order name: Echo with Doppler EDMS 01/31 16:11 Order name: NT PRO-BNP EDMS 01/31 16:11 Order name: Phosphorus EDMS 01/31 16:11 Order name: Phosphorus EDMS 01/31 16:12 Order name: Protime (+INR) EDMS 01/31 12:56 Order name: Labs collected and sent; Complete Time: 13:25 nv2 01/31 12:56 Order name: O2 Per Protocol; Complete Time: 13:25 ma2 01/31 12:56 Order name: O2 Sat Monitoring; Complete Time: 13:25 ma2 Administered Medications: 12:57 CANCELLED (Duplicate Order): Eliquis (apixaban) 5 mg PO once ma2 13:44 Drug: amiodarone 150 mg Volume: 100 ml; Route: IVPB; Infused Over: 10 mins; Site: right bp forearm; 19:19 Follow up: IV Status: Completed infusion kd3 14:00 Drug: amiodarone 900 mg, D5W 500 ml Route: IVPB; Rate: 1 mg/min; Site: right forearm; bp 19:19 Follow up: IV Status: Completed infusion kd3 Disposition Summary: 01/31/22 14:54 Hospitalization Ordered Hospitalization Status: Observation ma2 Provider: Bell Izquierdo [facility] Location: Telemetry/MedSur (Inpatient) ma2 Condition: Stable ma2 Problem: new ma2 Symptoms: are unchanged ma2 Bed/Room Type: Standard [facility] Room Assignment: 223(01/31/22 18:34) dw Diagnosis - Unspecified atrial fibrillation - With rapid ventricular rate ma2 Forms: - Medication Reconciliation Form ma2 - SBAR form nv2 Signatures: Dispatcher [employer] EDMS Genesis High RN RN dw Alton Munguia PA PA jmm Peltier, Brian, RN RN Bell Smalls MD MD nv2 Frederick Faria Kyli RN kd3 Corrections: (The following items were deleted from the chart) 12:57 12:57 Eliquis (apixaban) 5 mg PO once ordered. ma2 ma2 18:34 14:54 ma2 dw
[2022-01-31] MEDS ORDERED: ONDANSETRON 4 MG/2 ML VIAL IV PRN (16:07)
[2022-01-31] MEDS ORDERED: METOPROLOL TAR 50 MG TAB PO SCH (21:00)
[2022-01-31] MEDS: ENOXAPARIN 80 MG/0.8 ML SQ SCH (21:00)
[2022-02-01] MEDS: NACHLORIDE 0.45% 1,000 ML IV SCH ×4 (00:24→22:44)
[2022-02-01] MEDS: ENOXAPARIN 80 MG/0.8 ML SQ SCH ×3 (00:24→20:40)
[2022-02-01 06:18] LABS: Absolute Lymphocytes (CBC) 2.2 K/uL (0.7-4.9); Hematocrit 31.4 % (36.0-45.0); Lymphocytes % 27.2 % (15.3-44.8); MPV 8.7 fL (7.6-11.3); RBC Red Blood Cell Count 3.29 M/uL (3.86-4.86)
[2022-02-01 06:26] LABS: Albumin 2.7 g/dL (3.4-5.0); Bilirubin Total 0.7 mg/dL (0.2-1.0); Magnesium 1.8 mg/dL (1.8-2.4); Phosphorus 3.8 mg/dL (2.5-4.9); Potassium 3.2 mmol/L (3.5-5.1); Protein, Total 7.2 g/dL (6.4-8.2)
[2022-02-01 06:41] LABS: Protime INR 1.14
--- NOTE | 2022-02-01 08:57 | P.HP ---
Certification for Inpatient Patient admitted to: Inpatient With expected LOS: >2 Midnights Patient will require the following post-hospital care: None Practitioner: I am a practitioner with admitting privileges, knowledge of patient current condition, hospital course, and medical plan of care. Services: Services provided to patient in accordance with Admission requirements found in Title 42 Section 412.3 of the Code of Federal Regulations Patient History Date of Service: 01/31/22 Reason for admission: Atrial fibrillation with rapid ventricular response History of Present Illness: Patient is a 71-year-old female who presents to the emergency room with atrial fibrillation with rapid ventricular response. She was seen by cardiology and sent to the hospital. Her heart rate was in the 110s and she was in A. fib with RVR. Patient was started on amiodarone drip. Patient's rate is controlled. Patient is clinically doing better. At this time, patient will be admitted for further evaluation. Allergies No Known Allergies Allergy (Verified 04/13/15 10:06) Home Medications: Enoxaparin Sodium [Lovenox 80 MG INJ*] 80 mg SQ Q12HR syr 09/03/21 Jevity 1.5 Abdi Liquid 237 ml FT QID bot 09/03/21 Metoprolol Tartrate [Lopressor*] 25 mg PO BID 6AM 6PM tab 09/03/21 Sucralfate [Carafate*] 10 ml FT QID ucup 09/03/21 Warfarin Sodium [Coumadin*] 7.5 mg PO DAILY 5 PM tab 09/03/21 - Past Medical/Surgical History Has patient received pneumonia vaccine in the past: Yes Diabetic: No -: HTN -: HLD -: Osteoarthritis. -: COVID -: GI bleed Past Surgical History: Patient denies surgical history - Family History Father Family History: Reviewed- Non-Contributory - Social History Smoking Status: Never smoker Alcohol use: No CD- Drugs: No Caffeine use: No Place of Residence: Home Review of Systems 10-point ROS is otherwise unremarkable Physical Examination - Vital Signs Temperature: 99.0 F Blood Pressure: 131/81 Pulse: 82 Respirations: 16 Pulse Ox (%): 98 - Physical Exam General: Alert, In no apparent distress, Oriented x3 HEENT: Atraumatic, PERRLA, Mucous membr. moist/pink, EOMI, Sclerae nonicteric Neck: Supple, 2+ carotid pulse no bruit, No LAD, Without JVD or thyroid abnormality Respiratory: Clear to auscultation bilaterally, Normal air movement Cardiovascular: Regular rate/rhythm, Normal S1 S2, No murmurs Gastrointestinal: Normal bowel sounds, Soft and benign, Non-distended, No tenderness Musculoskeletal: No clubbing, No swelling, No tenderness Integumentary: No rashes Neurological: Normal speech, Normal strength at 5/5 x4 extr, Normal tone, Sensation intact, Cranial nerves 3-12 intact, Normal affect Lymphatics: No axilla or inguinal lymphadenopathy - Studies Laboratory Data (last 24 hrs) 01/31/22 13:30: PT 12.8 H, INR 1.16 01/31/22 13:30: WBC 8.0, Hgb 11.0 L, Hct 32.9 L, Plt Count 241 01/31/22 13:30: Sodium 142, Potassium 3.3 L, BUN 14, Creatinine 1.18, Glucose 113 H, Magnesium 1.9 Assessment & Plan - Problems (Diagnosis) (1) Atrial fibrillation with rapid ventricular response Current Visit: Yes Status: Acute (2) Acute kidney injury Current Visit: No Status: Acute (3) Pneumonia due to COVID-19 virus Current Visit: No Status: Acute (4) Protein calorie malnutrition Current Visit: No Status: Acute - Plan PLAN: 1. Amiodarone drip 2. Echocardiogram 3. Monitor on telemetry 4. Cardiology consultation 5. Thyroid studies 6. GI and DVT prophylaxis Discharge Plan: Home Plan to discharge in: Greater than 2 days - Advance Directives Does patient have a Living Will: Yes Does patient have a Durable POA for Healthcare: No - Code Status/Comfort Care Code Status Assessed: Yes Code Status: Full Code Critical Care: No Time Spent Managing PTS Care (In Minutes): 45
[2022-02-01] MEDS ORDERED: POTASSIUM 25 MEQ EFFERV TAB PO ONE (09:00)
[2022-02-01] MEDS ORDERED: MAGNESIUM SULFATE 1 gm IVPB 1 GM/100 ML BAG IV ONE (09:00)
[2022-02-01] MEDS ORDERED: POTASSIUM CL SA 10 MEQ TAB PO ONE (21:00)
[2022-02-01] MEDS ORDERED: ACETAMINOPHEN 500 MG TAB PO PRN (22:08)
[2022-02-01] MEDS ORDERED: AMIODARONE HCL 200 MG TAB PO ONE (22:24)
[2022-02-01] MEDS ORDERED: METOPROLOL TAR 25 MG TAB PO ONE (22:31)
[2022-02-01 22:34] VITALS: BMI 28.1
--- NOTE | 2022-02-01 23:50 | CON ---
Date of Consultation: 02/01/2022 Reason For Consultation: Atrial fibrillation with rapid ventricular response. History Of Present Illness: This is a 71-year-old female, known patient to me, seen in the office an d had atrial fibrillation with rapid ventricular response and as a result, she developed a systolic h eart failure with very low ejection fraction. Outpatient titration medication did not help the heart rate so decided to admit the patient for IV amiodarone, which was done and now she is in sinus rhyth m. She feels well. 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 Past Medical History: As outlined above in the HPI. Medications: Refer reconciliation sheet for detailed list. Allergies: NO KNOWN DRUG ALLERGIES. Family History: No premature coronary artery disease or cancer. Social History: Does not smoke or drink. Does not use any drugs. Review of Systems: All systems reviewed and they were negative except as mentioned in HPI. Physical Examination: Vital Signs: Reviewed. HEAD AND NECK: Pupils are equal and reactive to light. Intact eye movements. No JVD. No cervical lymphadenopathy. Neck supple. Thyroid is not enlarged. Lungs: Clear to auscultation bilaterally. No rhonchi, rales, or crackles. No accessory muscle use. Heart: Regular rate and rhythm. No extra sounds. Abdomen: Soft, nontender. Bowel sounds positive. No organomegaly or cyanosis. Extremities: No clubbing or cyanosis. Intact pulses. Skin: No rash was noted. Neuro: Alert, awake. No acute focal deficits appreciated. Investigations: Labs were reviewed. Assessment And Recommendation: 1.Atrial fibrillation with rapid ventricular response, status post amiodarone drip and now she is in sinus. I put her on amiodarone 200 mg twice a day and continue Coumadin with INR checks. 2.Systolic congestive heart failure. Recent heart catheterization was normal. This is likely atria l fibrillation induced and now she is in sinus rhythm. We will up titrate the metoprolol on an outpa tient basis to continue 50 mg twice a day and add low dose of lisinopril at 5 mg daily upon discharge . From Cardiology standpoint, the patient can be released and follow up with me in the office on Fri. SR/MODL Voice ID: [id number] Report ID: [id number]
[2022-02-02 04:20] LABS: Potassium 3.5 mmol/L (3.5-5.1)
[2022-02-02] MEDS ORDERED: POTASSIUM CL SA 10 MEQ TAB PO ONE (06:00)
[2022-02-02] MEDS ORDERED: METOPROLOL TAR 25 MG TAB PO SCH (06:00)
[2022-02-02] MEDS: NACHLORIDE 0.45% 1,000 ML IV SCH (09:00)
[2022-02-02] MEDS ORDERED: AMIODARONE HCL 200 MG TAB PO SCH (09:00)
[2022-02-02] MEDS: ENOXAPARIN 80 MG/0.8 ML SQ SCH (09:00)
[2022-02-02 12:09] VITALS: BP 140/67; TEMP 97.4
[2022-02-02 12:22] VITALS: O2SAT 98
--- NOTE | 2022-02-03 16:49 | RAD REPORT ---
EXAM DESCRIPTION: UPPER EXTREMITY VENOUS UNILATE RadLex: US UPPER EXTREMITY VEINS LIMITED FOLLOW-UP UNILATERAL CLINICAL HISTORY: Swelling/redness R arm after amiodarone UPPER EXTREMITY VENOUS UNILATE. COMPARISON: None. TECHNIQUE: Survey ultrasound imaging of the deep venous system of right neck and upper extremity was performed including color and spectral Doppler evaluation with sales representative advertising images obtained. Seg mental venous compression was performed where feasible. FINDINGS: Internal jugular vein: Patent without thrombus. Pulsatility is indirect evidence of centra l patency. Subclavian vein: Patent without thrombus. Axillary vein: Patent without thrombus. Brachial vein(s): Patent without thrombus. Radial vein: Patent without thrombus. Ulnar vein: Patent without thrombus. Superficial cephalic vein: Patent without thrombus. Superficial basilic vein: Patent without thrombus. IMPRESSION: Negative for right upper extremity deep venous thrombosis. Electronically signed by: Karissa Gee MD 02/01/2022 11:18 PM CDT Due to temporary technical issues with the PACS/Fluency reporting system, reports are being signed by the in house radiologists without review as a courtesy to insure prompt reporting. The interpreting radiologist is fully responsible for the content of the report.
--- NOTE | 2022-02-04 07:17 | ECHO ---
HEIGHT: 5 ft 7 in WEIGHT: 180 lb 0 oz DATE OF STUDY: 02/01/[address]: Bell Izquierdo MD 2-DIMENSIONAL: YES M.MODE: YES DOPPLER: YES COLOR FLOW: YES TDS: PORTABLE: YES DEFINITY: BUBBLE STUDY: DIAGNOSIS: ATRIAL FIBRILLATION WITH RAPID VENTRICULAR RESPONSE CARDIAC HISTORY: CATHERIZATION: SURGERY: PROSTHETIC VALVE: PACEMAKER: MEASUREMENTS (cm) DIASTOLIC (NORMALS) SYSTOLIC (NORMALS) IVSd 1.1 (0.6-1.2) LA Diam 3.9 (1.9-4.0) LVEF 35-40% LVIDd 4.4 (3.5-5.7) LVIDs 3.9 (2.0-3.5) %FS 10% LVPWd 1.1 (0.6-1.2) Ao Diam 2.5 (2.0-3.7) 2 DIMENSIONAL ASSESSMENT: RIGHT ATRIUM: NORMAL LEFT ATRIUM: NORMAL RIGHT VENTRICLE: NORMAL LEFT VENTRICLE: DEPRESSED FUNCTION TRICUSPID VALVE: MODERATE TRICUSPID REGURGITATION MITRAL VALVE: MODERATE MITRAL REGURGITATION PULMONIC VALVE: MILD PULMONIC INSUFFICIENCY AORTIC VALVE: MILD AORTIC INSUFFICIENCY PERICARDIAL EFFUSION: NONE AORTIC ROOT: NORMAL LEFT VENTRICULAR WALL MOTION: MODERATE GLOBAL HYPOKINESIS DOPPLER/COLOR FLOW: SEE BELOW COMMENTS: MODERATELY DEPRESSED LEFT VENTRICULAR EJECTION FRACTION 35-40%. MODERATE GLOBAL HYPOKINESIS. MODERATE TRICUSPID REGURGITATION AND MITRAL REGURGITATION, MILD PULMONIC INSUFFICIENCY. TECHNOLOGIST: SANDRA SERRATO
== END 2022-02-02 12:30 | disposition home or self-care (01) | DRG 309 ==
LOC: ER 12:52 → ERHOLD 16:07 → 2ND 19:56
PROVIDERS: ADMIT Hospitalist; ATTEND Hospitalist
DX: I48.91 Unspecified atrial fibrillation (principal); I50.20 Unspecified systolic (congestive) heart failure; E78.5 Hyperlipidemia, unspecified; I11.0 Hypertensive heart disease with heart failure; M19.90 Unspecified osteoarthritis, unspecified site; Z86.16 Personal history of COVID-19; Z86.718 Personal history of other venous thrombosis and embolism; Z79.01 Long term (current) use of anticoagulants; Z20.822 Contact with and (suspected) exposure to COVID-19
CPT/HCPCS: 36415; 71045; 80048; 80053; 83735; 83880; 84100; 84132; 84484; 85025; 85610; 93005; 93306; 93971; 96365; 96366; 99285; J0282; J3475; J7060; U0003

== ENCOUNTER 2022-11-06 07:56 | Inpatient (IN) | payer OTHER ==
--- OUTSIDE RECORDS SUMMARY | 2022-11-06 08:04 | XMS REPORT | Continuity of Care Document ---
:1950 Author Organization [facility] t Address [address] [place] [address] Care Team Providers Name Role Phone JAMES PEREZ Primary Care Physician Unavailable JAMES PEREZ Attending Clinician Unavailable James Perez MD Attending Clinician JAMES PEREZ Admitting Clinician Unavailable Payers Payer Name Policy Type Policy Number Effective Date Expiration Date S nolan [facility] [id number] 2021 00:00:00 Problems Condition Condition Condition Status Onset Resolution Last Treating Co mments Source Name Details Category Date Date Treatment Clinician Date Pneumonia Pneumonia Disease Active [facility] COVID[facility] COVID-19 [facility]: Medica l virus virus 00 Center Allergies, Adverse Reactions, Alerts Allergy Allergy Status Severity Reaction(s) Onset Inactive Treating Comm ents Source Name Type Date Date Clinician NO KNOWN Allergy Active [facility] Social History Social Habit Start Date Stop Date Quantity Comments Source History SDOH [facility] Std Drinks [facility] History SDOH [facility] Alcohol Binge Medical [facility] History SDOH [facility] Alcohol Comment Medical C enter Alcohol intake 2021-06-29 2021-06-[address] [facility] [address] [facility] Miguel es 00:00:00 00:00:00 non-drinker Medical Cente r (finding) History SDOH 2021-06-29 2021-06-[address] [facility] Alcohol Frequency 00:00:00 00:00:00 Medical Center Sex Assigned At [address] [address] Cristine kes 00:00:00 00:00:00 Medical Center Smoking Status Start Date Stop Date Source Never smoker [facility] Medications Ordered Filled Start Stop Current Ordering Indication Dosage Frequency Signature Comments Components Source Medication Medication Date Date Medication? Clinician (SIG) Name Name lisinopriL 2020- No 2.5mg QD Take [address] [facility] (PRINIVIL,Z 9-30 10-30 tablet [facility] ESTRIL) 2.5 00:00: 23:59 (2.5 mg Me dical MG tablet 00 :00 total) by Cente r mouth daily for 30 days. lisinopriL 2020- No 2.5mg QD Take [address] [facility] (PRINIVIL,Z 9-30 10-30 tablet [facility] ESTRIL) 2.5 00:00: 23:59 (2.5 mg Me dical MG tablet 00 :00 total) by Cente r mouth daily for 30 days. lisinopriL 2020- No 2.5mg QD Take [address] [facility] (PRINIVIL,Z 9-30 10-30 tablet [facility] ESTRIL) 2.5 00:00: 23:59 (2.5 mg Me dical MG tablet 00 :00 total) by Cente r mouth daily for 30 days. lisinopriL 2020- No 40mg QD Take [address] [facility] (PRINIVIL,Z 07-11 by mouth José Miguel es ESTRIL) 40 16:09: 00:00 daily. Medi [facility]ott MG tablet 43 :00 [place] lisinopriL 2020- No 40mg QD Take [address] [facility] (PRINIVIL,Z 07-11 by mouth José Miguel es ESTRIL) 40 16:09: 00:00 daily. Medi scott MG tablet 43 :00 Center lisinopriL 2020- No 40mg QD Take [address] [facility] (PRINIVIL,Z 07-11 by mouth José Miguel es ESTRIL) 40 16:09: 00:00 daily. Medi scott MG tablet 43 :00 [place] pantoprazol 2020- No 40mg Q.5D Take [address] [facility] e 9-29 11-28 tablet (40 [facility] (PROTONIX) 00:00: 23:59 mg total) M edical 40 MG 00 :00 by mouth 2 Center tablet (two) times daily for 60 days. pantoprazol 2020- No 40mg Q.5D Take [address] [facility] e 9-29 11-28 tablet (40 [facility] (PROTONIX) 00:00: 23:59 mg total) M edical 40 MG 00 :00 by mouth 2 Center tablet (two) times daily for 60 days. pantoprazol 2020- No 40mg Q.5D Take [address] [facility] e 9-29 11-28 tablet (40 [facility] (PROTONIX) 00:00: 23:59 mg total) M edical 40 MG 00 :00 by mouth 2 Center tablet (two) times daily for 60 days. albuterol-i 2020- No 1{puff} Inhale [address] [facility] pratropium 9-29 10-29 puff by [facility] (COMBIVENT 00:00: 23:59 mouth via M edical RESPIMAT) 00 :00 inhaler Center 20-100 every 6 mcg/actuati (six) on Mist hours as inhaler needed for Wheezing or Shortness of Breath for up to 30 days. insulin 2020- No 10U QD Inject [address] [facility] [address] glargine 9-29 10-29 Units [facility] (LANTUS) 00:00: 23:59 subcutaneo Me dical 100 unit/mL 00 :00 usly every Ce nter injection morning for 30 days Use as directed. albuterol-i 2020- No 1{puff} Inhale [address] [facility] pratropium 9-29 10-29 puff by [facility] (COMBIVENT 00:00: 23:59 mouth via M edical RESPIMAT) 00 :00 inhaler Center 20-100 every 6 mcg/actuati (six) on Mist hours as inhaler needed for Wheezing or Shortness of Breath for up to 30 days. insulin 2020-2020- No 10U QD Inject [address] [address] glargine 9-29 10-29 [facility] (LANTUS) 00:00: 23:59 subcutaneo Me dical 100 unit/mL 00 :00 usly every Ce nter injection morning for 30 days Use as directed. albuterol-i No 1{puff} Inhale 1 [facility] pratropium 07-11 puff by [facility] (COMBIVENT 00:00: 23:59 mouth via M edical RESPIMAT) 00 :00 inhaler Center 20-100 every 6 mcg/actuati (six) on Mist hours as inhaler needed for Wheezing or Shortness of Breath for up to 30 days. insulin 2020- No 10U QD Inject 10 [facility] glargine 07-11 [facility] (LANTUS) 00:00: 23:59 subcutaneo Me dical 100 unit/mL 00 :00 usly every Ce nter injection morning for 30 days Use as directed. methylPREDN 2020- No follow [facility] St ISolone 07-11 package [facility] (MEDROL 00:00: 23:59 directions Med ical DOSEPACK) 4 00 :00 . Center mg tablet benzonatate 2020- No 100mg Take [address] (TESSALON) 07-11 capsule [facility] 100 MG 00:00: 23:59 (100 mg Medical capsule 00 :00 total) by Center mouth 3 (three) times daily as needed for Cough for up to 7 days. methylPREDN 2020- No follow [facility] St ISolone 07-11 package [facility] (MEDROL 00:00: 23:59 directions Med ical DOSEPACK) 4 00 :00 . Center mg tablet benzonatate 2020- No 100mg Take [address] (TESSALON) 07-11 capsule [facility] 100 MG 00:00: 23:59 (100 mg Medical capsule 00 :00 total) by Center mouth 3 (three) times daily as needed for Cough for up to 7 days. methylPREDN 2020- No follow [facility] ISolone 07-11 package [facility] (MEDROL 00:00: 23:59 directions Med ical DOSEPACK) 4 00 :00 . Center mg tablet benzonatate 2020- No 100mg Take [address] (TESSALON) 07-11 capsule [facility] 100 MG 00:00: 23:59 (100 mg Medical capsule 00 :00 total) by Center mouth 3 (three) times daily as needed for Cough for up to 7 days. azithromyci 2020- No 500mg QD Take [address] n 07-11 tablet [facility] (ZITHROMAX) 00:00: 23:59 (500 mg Me dical 500 MG 00 :00 total) by Center tablet mouth daily for 5 days. azithromyci 2020- No 500mg QD Take [address] n 07-11 tablet [facility] (ZITHROMAX) 00:00: 23:59 (500 mg Me dical 500 MG 00 :00 total) by Center tablet mouth daily for 5 days. azithromyci No 500mg QD Take [address] n 07-11 tablet [facility] (ZITHROMAX) 00:00: 23:59 (500 mg Me dical [...] kg Systolic blood 2021-07-11 16:00:00 139 mm[Hg] [facility] Diastolic blood 2021-07-11 16:00:00 75 mm[Hg] [facility] Heart rate 2021-07-11 16:00:00 106 /min [facility] Body temperature 2021-07-11 16:00:00 36.83 Renetta [facility] Respiratory rate 2021-07-11 16:00:00 18 /min [facility] Oxygen saturation in 2021-07-11 16:00:00 96 /min [facility] Arterial blood by Medical Ce nter Pulse oximetry Body weight 2021-06-29 10:00:00 89.359 kg [facility] BMI 2021-06-29 10:00:00 31.80 kg/m2 [facility] Body height 2021-06-28 22:00:00 167.6 cm [facility] Procedures Procedure Date / Time Performed Performing Clinician Constantino e POCT-GLUCOSE METER 2021-07-11 15:57:00 James Perez [facility] POCT-GLUCOSE METER 2021-07-11 11:37:00 James Perez [facility] POCT-GLUCOSE METER 2021-07-11 06:08:00 [facility]NESIUM 2021-07-11 04:18:00 Fuentes [facility] CBC W/PLT COUNT & AUTO 2021-07-11 04:18:00 [facility] COMPREHENSIVE METABOLIC 2021-07-11 04:18:00 James Perez [facility] CBC W/PLT COUNT & AUTO 2021-07-11 04:18:00 James Perez [facility] POCT-GLUCOSE METER 2021-07-10 20:33:00 James Perez [facility] POCT-GLUCOSE METER 2021-07-10 16:57:00 [facility] POCT-GLUCOSE METER 2021-07-10 11:38:00 James Perez [facility] XR CHEST 1 VIEW PORTABLE 2021-07-10 08:16:00 Lydia John [facility] POCT-GLUCOSE METER 2021-07-10 06:08:00 [facility] 2021-07-10 04:26:00 [facility] W/[facility]T COUNT & AUTO 2021-07-10 04:26:00 James Perez [facility] COMPREHENSIVE METABOLIC 2021-07-10 04:26[facility] & AUTO 2021-07-10 04:26:00 [facility] POCT-[facility]SE METER 2021-07-09 20:12:00 Jamey Pereztobin [facility] POCT-GLUCOSE METER 2021-07-09 17:01:00 Chris James [facility] POCT-GLUCOSE METER 2021-07-09 13:55:00 [facility] POCT-GLUCOSE METER 2021-07-09 06:27:00 [facility] PREPARE LEUKO-REDUCED RBC 2021-07-08 23:54:00 Chris James [facility] POCT-GLUCOSE METER 2021-07-08 20:10:00 [facility] POCT-GLUCOSE METER 2021-07-08 15:26:00 [facility] POCT-GLUCOSE METER 2021-07-08 11:24:00 [facility] POCT-GLUCOSE METER 2021-07-08 06:25:00 [facility] CBC W/PLT COUNT & AUTO 2021-07-08 04:41:00 [facility] COMPREHENSIVE METABOLIC 2021-07-08 04:41:00 Jamey Pereztobin Dawkins [facility] MAGNESIUM 2021-07-08 04:41:00 Chris [facility] CBC W/PLT COUNT & AUTO 2021-07-08 04:41:00 Chris James [facility] POCT-GLUCOSE METER 2021-07-07 21:46:00 Chris James [facility] POCT-GLUCOSE METER 2021-07-07 15:09:00 James Perez [facility] POCT-GLUCOSE METER 2021-07-07 11:47:00 [facility] POCT-GLUCOSE METER 2021-07-07 06:19:00 [facility] CBC W/PLT COUNT & AUTO 2021-07-07 06:12:00 James Perez [facility] MAGNESIUM 2021-07-07 06:12:[address] [facility] COMPREHENSIVE METABOLIC 2021-07-07 06:12:00 James Perez [facility] CBC W/PLT COUNT & AUTO 2021-07-07 06:12:00 [facility] TRANSFUSE LEUKO-REDUCED 2021-07-07 05:33:[address] James Perez [facility] RED BLOOD CELLS [facility] TRANSFUSE LEUKO-REDUCED 2021-07-06 23:14:[address] James Perez [facility] RED BLOOD CELLS [facility] NM GI BLEED STUDY 2021-07-06 22:50:00 Kylie Flores [facility] POCT-GLUCOSE METER 2021-07-06 20:45:00 James Perez [facility] ABORH, MANUAL 2021-07-06 17:36:[address] [facility] TYPE AND SCREEN, 2021-07-06 16:28:00 [facility] POCT-GLUCOSE METER 2021-07-06 16:00:00 [facility] CBC W/PLT COUNT & AUTO 2021-07-06 14:25:00 [facility] W/[facility]T [facility] & AUTO 2021-07-06 14:25:00 [facility] ([facility] 2021-07-06 14:25:00 [facility] COMPREHENSIVE METABOLIC 2021-07-06 13:26:00 James Perez edel [facility] MAGNESIUM 2021-07-06 13:26:00 [facility] POCT-GLUCOSE METER 2021-07-06 12:05:00 James [facility] XR CHEST 1 VIEW PORTABLE 2021-07-06 06:53:00 Lydia John [facility] POCT-GLUCOSE METER 2021-07-06 06:27:00 Jamey Pereztobin [facility] POCT-GLUCOSE METER 2021-07-05 15:32:00 [facility] POCT-GLUCOSE METER 2021-07-05 11:52:00 James Perez [facility] POCT-GLUCOSE METER 2021-07-05 06:13:00 Jamey Pereztobin [facility] MAGNESIUM 2021-07-05 04:26:00 Fuentes [facility] CBC W/PLT COUNT & AUTO 2021-07-05 04:26:00 [facility] COMPREHENSIVE METABOLIC 2021-07-05 04:26:00 Jamey Preeztobin Foxedel [facility] CBC W/PLT COUNT & AUTO 2021-07-05 04:26:00 [facility] CBC W/PLT COUNT & AUTO 2021-07-04 20:04:00 Jamey Pereztobin [facility] DIFFERENTIAL [facility] CBC W/PLT COUNT & AUTO 2021-07-04 20:04:00 James Perez [facility] (MANUAL DIFFERENTIAL) 2021-07-04 20:04:00 James Perez [facility] POCT-GLUCOSE METER 2021-07-04 19:39:00 James Perez [facility] POCT-GLUCOSE METER 2021-07-04 16:02:00 James Perez [facility] POCT-GLUCOSE METER 2021-07-04 11:41:00 [facility] C-REACTIVE PROTEIN 2021-07-04 05:03:00 PuckettLydia soto Mayen [facility] D-DIMER 2021-07-04 05:03:00 DoraLydia soto Tiarra [facility] CBC W/PLT COUNT & AUTO 2021-07-04 05:03:00 [facility] 2021-07-04 05:03:00 [facility] BASIC METABOLIC PANEL (7) 2021-07-04 05:03:00 James Perez [facility] CBC W/PLT COUNT & AUTO 2021-07-04 05:03:00 [facility] POCT-GLUCOSE METER 2021-07-04 04:41:00 James Perez [facility] POCT-GLUCOSE METER 2021-07-03 20:01:00 James Perez [facility] POCT-GLUCOSE METER 2021-07-03 16:15:00 James Perez [facility] POCT-GLUCOSE METER 2021-07-03 12:28:00 [facility] XR CHEST 1 VIEW PORTABLE 2021-07-03 06:27:00 James Perez [facility] POCT-GLUCOSE METER 2021-07-03 06:21:00 [facility] POCT-GLUCOSE METER 2021-07-02 21:02:00 James Perez [facility] POCT-GLUCOSE METER 2021-07-02 15:20:00 [facility] POCT-GLUCOSE METER 2021-07-02 11:54:00 Chris, [facility] CT CHEST FOR PULMONARY 2021-07-02 10:42:[address] [facility] POCT-GLUCOSE METER 2021-07-02 06:34:00 Chris [facility] POCT-GLUCOSE METER 2021-07-01 21:27:00 Chris [facility] POCT-GLUCOSE METER 2021-07-01 16:36:00 Chris [facility] VENOUS DOPPLER LEGS 2021-07-01 12:20:00 Lydia John [facility] POCT-GLUCOSE METER 2021-07-01 11:43:00 [facility] CBC W/PLT COUNT & AUTO 2021-07-01 09:50:00 Lydia John [facility] COMPREHENSIVE METABOLIC 2021-07-01 09:50:00 Lydia John [facility] C-REACTIVE PROTEIN 2021-07-01 09:50:00 Lydia John [facility] D-DIMER 2021-07-01 09:50:00 Lydia John [facility] CBC W/PLT COUNT & AUTO 2021-07-01 09:50:00 [facility] 2021-07-01 09:50:00 Lydia John [facility] POCT-GLUCOSE METER 2021-07-01 06:32:00 Chris [facility] POCT-GLUCOSE METER 2021-06-30 21:10:00 Chris [facility] POCT-GLUCOSE METER 2021-06-30 16:17:00 Chris [facility] POCT-GLUCOSE METER 2021-06-30 11:38:00 Chris [facility] POCT-GLUCOSE METER 2021-06-30 06:21:00 James Perez [facility] XR CHEST 1 VIEW PORTABLE 2021-06-30 06:07:00 James Perez [facility] PROTHROMBIN TIME/INR 2021-06-30 04:19:00 Jose Miguel Jesus [facility] HEPATIC FUNCTION PANEL 2021-06-30 04:19:00 [facility] 2021-06-30 04:19:00 [facility] CBC W/PLT COUNT & AUTO 2021-06-30 04:19:00 [facility]PREHENSIVE METABOLIC 2021-06-30 04:19:00 James Perez [facility] MAGNESIUM 2021-06-30 04:19:[address] [facility] CBC W/PLT COUNT & AUTO 2021-06-30 04:19:00 Jose Miguel Jesus [facility] POCT-GLUCOSE METER 2021-06-29 19:20:00 James Perez [facility] POCT-GLUCOSE METER 2021-06-29 15:59:00 James Perez [facility] D-DIMER 2021-06-29 12:23:00 Ion Santos [facility] C-REACTIVE PROTEIN 2021-06-29 12:23:00 Lydia John [facility] POCT-GLUCOSE METER 2021-06-29 11:06:00 James Perez [facility] POTASSIUM, RANDOM URINE 2021-06-29 08:54:00 [facility] OSMOLALITY, URINE 2021-06-29 08:54:00 [facility] SODIUM, RANDOM URINE 2021-06-29 08:54:00 [facility] PROTEIN, RANDOM URINE 2021-06-29 08:54:00 Zhanna Jitendra [facility] CREATININE, RANDOM URINE 2021-06-29 08:54:00 [facility] Jitendra [facility] URINALYSIS W/ MICROSCOPIC 2021-06-29 08:54:00 Zhanna Tobinalicia I [facility] XR CHEST 1 VIEW PORTABLE 2021-06-29 05:59:00 Jeannine Jesus [facility] / BEDSIDE [facility] HEPATIC FUNCTION PANEL 2021-06-29 03:37:00 Jose Miguel Jesus [facility] LIPID PANEL 2021-06-29 03:37:00 Jose Miguel Jesus [facility] CBC W/PLT COUNT & AUTO 2021-06-29 03:37:00 Jose Miguel Jesus [facility] PROTHROMBIN TIME/INR 2021-06-29 03:37:00 Jose Miguel Jesus [facility] BASIC METABOLIC PANEL (7) 2021-06-29 03:37:00 Lydia John [facility] CBC W/PLT COUNT & AUTO 2021-06-29 03:37:00 Jose Miguel Jesus [facility] Plan of Care Planned Activity Planned Date Details Comments Source Future Scheduled 2022-10-[address] [facility] Test 00:00:00 (12+) [code = Medical Center DEPRESSION SCREENING (12+)] Future Scheduled 2022-10-13 FALLS RISK SCREENING [facility] Test 00:00:00 [code = FALLS RISK Medical C enter SCREENING] Future Scheduled 2022-06-13 INFLUENZA VACCINE (#1) [facility]:00 [code = INFLUENZA Medical Ce nter VACCINE (#1)] Future Scheduled 2022-06-13 INFLUENZA VACCINE (#1) [facility] 00:00:00 [code = INFLUENZA Medical Ce nter VACCINE (#1)] Future Scheduled 2022-05-[address] [facility] 00:00:00 WELLNESS (YEAR 2 or Medical Center FIRST YEAR if no IPPE) [code = MEDICARE ANNUAL WELLNESS (YEAR 2 or FIRST YEAR if no IPPE)] Future Scheduled 2022-05-[address] [facility] 00:00:00 WELLNESS (YEAR 2 or Medical Center FIRST YEAR if no IPPE) [code = MEDICARE ANNUAL WELLNESS (YEAR 2 or FIRST YEAR if no IPPE)] Future Scheduled 2021-10-[address] [facility] Test 00:00:00 (12+) [code = Medical Center DEPRESSION SCREENING (12+)] Future Scheduled 2021-10-13 FALLS RISK SCREENING [facility] Test 00:00:00 [code = FALLS RISK Medical C enter SCREENING] Future Scheduled 2021-10-[address] [facility] Test 00:00:00 (12+) [code = Medical Center DEPRESSION SCREENING (12+)] Future Scheduled 2021-10-13 FALLS RISK SCREENING [facility] Test 00:00:00 [code = FALLS RISK Medical C enter SCREENING] Future Scheduled 2021-10-[address] [facility] Test 00:00:00 (12+) [code = Medical Center DEPRESSION SCREENING (12+)] Future Scheduled 2021-10-13 FALLS RISK SCREENING [facility] Test 00:00:00 [code = FALLS RISK Medical C enter SCREENING] Future Scheduled 2021-06-13 INFLUENZA VACCINE (#1) [facility] 00:00:00 [code = INFLUENZA Medical Ce nter VACCINE (#1)] Future Scheduled 2021-06-13 INFLUENZA VACCINE (#1[facility] 00:00:00 [code = INFLUENZA Medical Ce nter VACCINE (#1)] Future Scheduled 2021-05-13 Medicare IPPE (WELCOME [facility] 00:00:00 TO MEDICARE) [code = Medical Center Medicare IPPE (WELCOME TO MEDICARE)] Future Scheduled 2021-05-13 Medicare IPPE (WELCOME [facility] 00:00:00 TO MEDICARE) [code = Medical Center Medicare IPPE (WELCOME TO MEDICARE)] Future Scheduled 2013 PNEUMOCOCCAL 65+ YRS ([address] [facility] Test 00:00:00 of 1 - [id number] Medica l Center PCV13) [code = PNEUMOCOCCAL 65+ YRS (1 of 1 - [id number] PCV13)] Future Scheduled 2013 PNEUMOCOCCAL 65+ YRS ([address] [facility] Test 00:00:00 of 1 - [id number]_Spyhymy Medica l Center PCV13) [code = PNEUMOCOCCAL 65+ YRS (1 of 1 - [id number] PCV13)] Future Scheduled 1998 SHINGLES VACCINES ([address] [facility] 00:00:00 2) [code = SHINGLES Medical Center VACCINES (1 of 2)] Future Scheduled 1998 SHINGLES VACCINES ([address] [facility] 00:00:00 2) [code = SHINGLES Medical Center VACCINES (1 of 2)] Future Scheduled 1998 SHINGLES VACCINES ([address] [facility] 00:00:00 2) [code = SHINGLES Medical Center VACCINES (1 of 2)] Future Scheduled 1998 SHINGLES VACCINES ([address] [facility] 00:00:00 2) [code = SHINGLES Medical Center VACCINES (1 of 2)] Future Scheduled 1967 DTAP/TDAP/TD VACCINES [facility] 00:00:00 (1 - Tdap) [code = Medical C enter DTAP/TDAP/TD VACCINES (1 - Tdap)] Future Scheduled 1967 DTAP/TDAP/TD VACCINES [facility] 00:00:00 (1 - Tdap) [code = Medical C enter DTAP/TDAP/TD VACCINES (1 - Tdap)] Future Scheduled 1967 DTAP/TDAP/TD VACCINES [facility] 00:00:00 (1 - Tdap) [code = Medical C enter DTAP/TDAP/TD VACCINES (1 - Tdap)] Future Scheduled 1967 DTAP/TDAP/TD VACCINES [facility] 00:00:00 (1 - Tdap) [code = Medical C enter DTAP/TDAP/TD VACCINES (1 - Tdap)] Future Scheduled 1966 HEPATITIS C SCRE[facility]ING [facility] 00:00:00 [code = HEPATITIS C Medical Center SCREENING] Future Scheduled 1966 HEPATITIS C [facility]CRE[facility]ING [facility] 00:00:00 [code = HEPATITIS C Medical Center SCREENING] Future Scheduled 1966 HEPATITIS C [facility]CRE[facility]ING [facility] 00:00:00 [code = HEPATITIS C Medical Center SCREENING] Future Scheduled 1966 HEPATITIS C [facility]CRE[facility]ING [facility] 00:00:00 [code = HEPATITIS C Medical Center SCREENING] Future Scheduled 1960 COVID-19 VACCINE (1) [facility] 00:00:00 [code = COVID-[address] VACCINE (1)] Future Scheduled 1960 COVID-19 VACCINE (1) [facility] 00:00:00 [code = COVID-[address] VACCINE (1)] Future Scheduled [address] [facility] Test 00:00:00 Counseling and Medical Cente r Screening (12+) [code = Tobacco Cessation Counseling and Screening (12+)] Future Scheduled 1954 PNEUMOCOCCAL 65+ YRS ([address] [facility] Test 00:00:00 - PCV) [code = Medical Cente r PNEUMOCOCCAL 65+ YRS (1 - PCV)] Future Scheduled 1954 PNEUMOCOCCAL 65+ YRS ([address] [facility] Test 00:00:00 - PCV) [code = Medical Cente r PNEUMOCOCCAL 65+ YRS (1 - PCV)] Future Scheduled 1949-05-02 COVID-19 VACCINE (#1) [facility] 00:00:00 [code = COVID-[address] VACCINE (#1)] Future Scheduled 1949-05-02 COVID-19 VACCINE (#1) [facility] 00:00:00 [code = COVID-[address] VACCINE (#1)] Future Scheduled 1948 Screening for malignant [facility] Test 00:00:00 neoplasm of breast Medical C enter (procedure) [code = 410423038] Future Scheduled 1948 Screening for malignant [facility] 00:00:00 neoplasm of colon Medical Ce nter (procedure) [code = 562295955] Future Scheduled 1948 Screening for malignant [facility] 00:00:00 neoplasm of breast Medical C enter (procedure) [code = 462734204] Future Scheduled 1948 Screening for malignant [facility] Test 00:00:00 neoplasm of colon Medical Ce nter (procedure) [code = 301607788] Future Scheduled 1948 Screening for malignant [facility] Test 00:00:00 neoplasm of breast Medical C enter (procedure) [code = 987445045] Future Scheduled 1948 CT Colonography (combo) [facility] Test 00:00:00 [code = CT Colonography [facility] (combo)] Future Scheduled 1948 Screening for malignant [facility] Test 00:00:00 neoplasm of colon Medical Ce nter (procedure) [code = 327669744] Future Scheduled 1948 Screening for malignant [facility] Test 00:00:00 neoplasm of colon Medical Ce nter (procedure) [code = 575434525] Future Scheduled 1950 DXA SCAN [code = DXA [facility] 00:00:00 SCAN] [facility] Future Scheduled 1948 Screening for malignant [facility] Test 00:00:00 neoplasm of colon Medical Ce nter (procedure) [code = 771904576] Future Scheduled 1948 Screening for malignant [facility] Test 00:00:00 neoplasm of colon Medical Ce nter (procedure) [code = 661782545] Future Scheduled 1950 Sigmoidoscopy [code = [facility] Future Scheduled 1948 Screening for malignant [facility] Test 00:00:00 neoplasm of breast Medical C enter (procedure) [code = 253848763] Future Scheduled 1948 CT Colonography (combo) [facility] Test 00:00:00 [code = CT Colonography [facility] (combo)] Future Scheduled 1948 Screening for malignant [facility] Test 00:00:00 neoplasm of colon Medical Ce nter (procedure) [code = 671052861] Future Scheduled 1948 Screening for malignant [facility] Test 00:00:00 neoplasm of colon Medical Ce nter (procedure) [code = 014051738] Future Scheduled 1948 DXA SCAN [code = DXA [facility] 00:00:00 SCAN] [facility] Future Scheduled 1948 Screening for malignant [facility] 00:00:00 neoplasm of colon Medical Ce nter (procedure) [code = 980340507] Future Scheduled 1948 Screening for malignant [facility] 00:00:00 neoplasm of colon Medical Ce nter (procedure) [code = 324141785] Future Scheduled 1950 Sigmoidoscopy [facility]code [facility] Start End Encounter Admission Attending Care Care Encounter Source Date/Time Date/Time Type Type Clinicians Facility Department ID 2021-08-30 Inpatient UR [facility] Vascular [id number] [facility] 13:02:11 [facility] 2021-07-22 Inpatient UR JAMES PEREZ [facility] Gastro [id number] [facility] 12:46:41 2021-06-28 2021-07-11 Hospital UR James Perez [facility] [id number] [id number] 22:13[facility] 23:11:[address] [facility] 2021-06-29 2021-06-29 Travel [facility] [id number] [facility]00 [facility] Results Test Description Test Time Test Comments Results Result Comments Source POC-Glucose meter 2021-07-11 16:08:47 Test Item Value Reference Range Interpretation Comme nts POC-Glucose Meter (test code = 228 mg/dL 70-110 H : TESTED AT [facility] [address] [place] [address] 153) [facility] [address]: Target Network Analyst/Techni unique ID = [id number] for Ishmael, Ayin or Lab Interpretation (test code = Abnormal 06304-8) [facility] [id number] 16:08:47 Test Item Value Reference Range Interpretation Comments POC-Glucose Meter (test 228 mg/dL 70-110 H : TE STED AT [facility] code = 1538) [address] [place], [place] [address]: [employer] Network Analyst/Techni unique ID = [id number] for Ishmael, Ayin or Lab Interpretation (test Abnormal code = 14487-2) [facility]-Glucose [id number] 16:08:47 Test Item Value Reference Range Interpretation Comments POC-Glucose Meter (test 228 mg/dL 70-110 H : TE STED AT [facility] code = 1538) [address], [facility] [address]: Target Network Analyst/Techni unique ID = [id number] for Ishmael, [place] or Lab Interpretation (test Abnormal code = 22888-9) [facility] [id number] 16:08:47 Test Item Value Reference Range Interpretation Comments POC-GLUCOSE METER 228 mg/dL 70-110 H : TESTED A [facility] [address] (BEAKER) (test code [address] [facility], = 1538) [place] [address]: Target Network Analyst/Techni unique ID = [id number] for Abhinav Mccaincielo POCT-GLUCOSE [id number] 11:49:12 Test Item Value Reference Range Interpretation Comments POC-GLUCOSE METER 122 mg/dL 70-110 H : TESTED A [facility] [address] (BEAKER) (test code [address], = 1538) [place] [address] 478: Target Network Analyst/Techni unique ID = [id number] for Abhinav Mccaincielo Comprehensive metabolic [id number] 06:20:58 Test Item Value Reference Range Interpretation Comments Protein, Total (test 4.8 See_Comment L [Autom ated code = 2885-2) message] The system which generated this result transmitted reference range : 6.0 - 8.5 gm/dL . The reference range was not used to interpr et this result as normal/abnormal . Albumin (test code = 2.6 g/dL 3.5-5.0 L 01758-3) Alkaline Phosphatase 49 U/L 30-115 (test code = 6768-6) Total Bilirubin 0.5 mg/dL 0.1-1.2 (test code = 1975-2) Sodium (test code = 142 meq/L 771-291 6501-2) Potassium (test code 3.3 meq/L 3.6-5.5 L = 2823-3) Chloride (test code 110 meq/L 98-106 H = 5-0) CO2 (test code = 22 meq/L -8-9) BUN (test code = 13 mg/dL - 3094-0) Creatinine (test 0.64 mg/dL 0.50-1.20 code = 2160-0) Glucose (test code = 135 mg/dL 70-110 H 2345-7) Calcium (test code = 8.2 mg/dL 8.5-10.5 L 05522-8) AST (test code = 14 U/L 5-40 1920-8) ALT (test code = 32 U/L 5-50 1742-6) EGFR (test code = 111 mL/min/1[place]73 [place] [address]-1) m NOT ACCURATE CREATININE CLEARANCE IN PREDICTING GLOMERULAR FILTRATION RATE . ESTIMATED GFR I S NOT APPLICABLE FOR DIALYSIS PATIENTS. LINDY (test code = Target Network Analyst ID - LINDY) LITOOperator ID - LITOOperator ID - LITOOperator ID - LITOOperator ID - LITOOperator ID - LITOOperator ID - LITOOperator ID - LITOOperator ID - LITOOperator ID - LITOOperator ID - LITOOperator ID - LITOOperator ID - LITOOperator ID - LITOOperator ID - LITOOperator ID - FLORENCIO Lab Interpretation Abnormal (test code = 79027-3) [facility] [id number] 06:20:58 Test Item Value Reference Range Interpretation Comments Protein, Total (test 4.8 See_Comment L [Autom ated code = 2885-2) message] The system which generated this result transmitted reference range : 6.0 - 8.5 gm/dL . The reference range was not used to interpr et this result as normal/abnormal . Albumin (test code = 2.6 g/dL 3.5-5.0 L 63009-3) Alkaline Phosphatase 49 U/L 30-115 (test code = 6768-6) Total Bilirubin 0.5 mg/dL 0.1-1.2 (test code = 1975-2) Sodium (test code = 142 meq/L 043-916 2671-2) Potassium (test code 3.3 meq/L 3.6-5.5 L = 2823-3) Chloride (test code 110 meq/L 98-106 H = 5-0) CO2 (test code = 22 meq/L -29 2027-9) BUN (test code = 13 mg/dL - 3094-0) Creatinine (test 0.64 mg/dL 0.50-1.20 code = 2160-0) Glucose (test code = 135 mg/dL 70-110 H 2345-7) Calcium (test code = 8.2 mg/dL 8.5-10.5 L 56401-3) AST (test code = 14 U/L 5-40 1920-8) ALT (test code = 32 U/L 5-50 1742-6) EGFR (test code = 111 mL/min/1.[place] [address]-0) m NOT ACCURATE CREATININE CLEARANCE IN PREDICTING GLOMERULAR FILTRATION RATE . ESTIMATED GFR I S NOT APPLICABLE FOR DIALYSIS PATIENTS. LINDY (test code = Target Network Analyst ID - LINDY) LITOOperator ID - LITOOperator ID - LITOOperator ID - LITOOperator ID - LITOOperator ID - LITOOperator ID - LITOOperator ID - LITOOperator ID - LITOOperator ID - LITOOperator ID - LITOOperator ID - LITOOperator ID - LITOOperator ID - LITOOperator ID - LITOOperator ID - FLORENCIO Lab Interpretation Abnormal (test code = 37764-7) [facility] [id number] 06:20:58 Test Item Value Reference Range Interpretation Comments Protein, Total (test 4.8 See_Comment L [Autom ated code = 2885-2) message] The system which generated this result transmitted reference range : 6.0 - 8.5 gm/dL . The reference range was not used to interpr et this result as normal/abnormal . Albumin (test code = 2.6 g/dL 3.5-5.0 L 70380-7) Alkaline Phosphatase 49 U/L 30-115 (test code = 6768-6) Total Bilirubin 0.5 mg/dL 0.1-1.2 (test code = 1975-2) Sodium (test code = 142 meq/L 130-832 7467-2) Potassium (test code 3.3 meq/L 3.6-5.5 L = 2823-3) Chloride (test code 110 meq/L 98-106 H = 2075-0) CO2 (test code = 22 meq/L -29 2027-9) BUN (test code = 13 mg/dL 10-26 3094-0) Creatinine (test 0.64 mg/dL 0.50-1.20 code = 2160-0) Glucose (test code = 135 mg/dL 70-110 H 2345-7) Calcium (test code = 8.2 mg/dL 8.5-10.5 L 11724-9) AST (test code = 14 U/L 5-40 1920-8) ALT (test code = 32 U/L 5-50 1742-6) EGFR (test code = 111 mL/min/1.[place] [address]-8) m NOT ACCURATE CREATININE CLEARANCE IN PREDICTING GLOMERULAR FILTRATION RATE . ESTIMATED GFR I S NOT APPLICABLE FOR DIALYSIS PATIENTS. LINDY (test code = Target Network Analyst ID - LINDY) LITOOperator ID - LITOOperator ID - LITOOperator ID - LITOOperator ID - LITOOperator ID - LITOOperator ID - LITOOperator ID - LITOOperator ID - LITOOperator ID - LITOOperator ID - LITOOperator ID - LITOOperator ID - LITOOperator ID - LITOOperator ID - LITOOperator ID - FLORENCIO Lab Interpretation Abnormal (test code = 66683-5) [facility] [id number] 06:20:58 Test Item Value Reference Range Interpretation [...] = 355) BLOOD UREA NITROGEN 13 mg/dL -26 (BEAKER) (test code = 354) CREATININE (BEAKER) [...] S NOT APPLICABLE FOR DIALYSIS PATIEN TS. Target Network Analyst ID - LITOOperator ID - LITOOperator ID [...] code [address], = 1538) [facility] [address]: Target Network Analyst/Techni unique ID = [id number] for Elizabeth Joshua [id number] 06:19:13 Test Item Value Reference Range Interpretation Comments Magnesium (test code = 1.7 mg/dL 1.5-3.0 28331-2) LINDY (test code = LINDY) [employer] Network Analyst ID - LITOOperator ID - LITOOperator ID - LITOOperator ID - FLORENCIO Lab Interpretation (test Normal code = 79014-7) [facility]2021-[facility] 06:19:13 Test Item Value Reference Range Interpretation Comments Magnesium (test code = 1.7 mg/dL 1.5-3.0 13786-9) LINDY (test code = LINDY) [employer] Network Analyst ID - LITOOperator ID - LITOOperator ID - LITOOperator ID - FLORENCIO Lab Interpretation (test Normal code = 96096-6) [facility]21-[facility] 06:19:13 Test Item Value Reference Range Interpretation Comments Magnesium (test code = 1.7 mg/dL 1.5-3.0 04898-1) LINDY (test code = LINDY) [employer] Network Analyst ID - LITOOperator ID - LITOOperator ID - LITOOperator ID - FLORENCIO Lab Interpretation (test Normal code = 04404-8) [facility]2021-[facility]-29 06:19:13 Test Item Value Reference Range Interpretation Comments MAGNESIUM (BEAKER) (test code = 1.7 mg/dL 1.5-3.0 627) [employer] Network Analyst ID - LITOOperator ID - LITOOperator ID - LITOOperator ID - LITOCBC with platelet count + automated [id number] 05:50:18 Test Item Value Reference Range Interpretation Comments WBC (test code = 6690-2) 6.1 See_Comment [A utomated message] The system iTO[employer] generated this result transmitted ref erence range: 4.0 - 10 .0 K/L. The refe rence range was not u sed to interpret this result as normal/abnor mal. RBC (test code = 789-8) 2.98 See_Comment L [Au tomated message] The system [employer] generated this result transmitted ref erence range: 4.00 - 5 .00 M/L. The refe rence range was not u sed to interpret this result as normal/abnor mal. MCHC (test code = 786-4) 31.8 See_Comment L [A utomated message] The system [employer] generated this result transmitted ref erence range: [...] L [Aut omated message] 777-3) The system [employer] generated this result transmitted ref erence range: 150 - 43 0 K/CU MM. The referen ce range was not u sed to interpret this result as normal/abnor mal. MPV (test code = 10.8 fL 6.0-11.5 58211-5) nRBC (test code = 413) 1 See_Comment H [Aut omated message] The system [employer] generated this result transmitted ref erence range: [...] See_Comment [Aut omated message] 670) The system [employer] generated this result transmitted ref erence range: 1.80 - 8 .00 K/L. The refe rence range was not u sed to interpret this result as normal/abnor mal. # Lymphs (test code = 1.73 See_Comment [Auto mated message] 414) The system [employer] generated this result transmitted ref erence range: 1.48 - 4 .50 K/L. The refe rence range was not u sed to interpret this result as normal/abnor mal. # Monos (test code = 0.38 See_Comment [Autom ated message] 415) The system [employer] generated this result transmitted ref erence range: 0.00 - 1 .30 K/L. The refe rence range was not u sed to interpret this result as normal/abnor mal. # Eos (test code = 416) 0.02 See_Comment [Au tomated message] The system [employer] generated this result transmitted ref erence range: 0.00 - 0 .50 K/L. The refe rence range was not u sed to interpret this result as normal/abnor mal. # Baso (test code = 417) 0.01 See_Comment [A utomated message] The system [employer] generated this result transmitted ref erence range: 0.00 - 0 .20 K/L. The refe rence range was not u sed to interpret this result as normal/abnor mal. Immature 2 % 0-0 H Granulocytes-Relative (test code = 2801) Lab Interpretation (test Abnormal code = 70703-2) [facility] with platelet count + automated [id number] 05:50:18 Test Item Value Reference Range Interpretation Comments WBC (test code = 6690-2) 6.1 See_Comment [A utomated message] The system [employer] generated this result transmitted ref erence range: 4.0 - 10 .0 K/L. The refe rence range was not u sed to interpret this result as normal/abnor mal. RBC (test code = 789-8) 2.98 See_Comment L [Au tomated message] The system [employer] generated this result transmitted ref erence range: 4.00 - 5 .00 M/L. The refe rence range was not u sed to interpret this result as normal/abnor mal. MCHC (test code = 786-4) 31.8 See_Comment L [A utomated message] The system [employer] generated this result transmitted ref erence range: [...] L [Aut omated message] 777-3) The system [employer] generated this result transmitted ref erence range: 150 - 43 0 K/CU MM. The referen ce range was not u sed to interpret this result as normal/abnor mal. MPV (test code = 10.8 fL 6.0-11.5 72954-5) nRBC (test code = 413) 1 See_Comment H [Aut omated message] The system [employer] generated this result transmitted ref erence range: [...] See_Comment [Aut omated message] 670) The system [employer] generated this result transmitted ref erence range: 1.80 - 8 .00 K/L. The refe rence range was not u sed to interpret this result as normal/abnor mal. # Lymphs (test code = 1.73 See_Comment [Auto mated message] 414) The system [employer] generated this result transmitted ref erence range: 1.48 - 4 .50 K/L. The refe rence range was not u sed to interpret this result as normal/abnor mal. # Monos (test code = 0.38 See_Comment [Autom ated message] 415) The system [employer] generated this result transmitted ref erence range: 0.00 - 1 .30 K/L. The refe rence range was not u sed to interpret this result as normal/abnor mal. # Eos (test code = 416) 0.02 See_Comment [Au tomated message] The system [employer] generated this result transmitted ref erence range: 0.00 - 0 .50 K/L. The refe rence range was not u sed to interpret this result as normal/abnor mal. # Baso (test code = 417) 0.01 See_Comment [A utomated message] The system [employer] generated this result transmitted ref erence range: 0.00 - 0 .20 K/L. The refe rence range was not u sed to interpret this result as normal/abnor mal. Immature 2 % 0-0 H Granulocytes-Relative (test code = 2801) Lab Interpretation (test Abnormal code = 77084-1) [facility] with platelet count + automated [id number] 05:50:18 Test Item Value Reference Range Interpretation Comments WBC (test code = 6690-2) 6.1 See_Comment [A utomated message] The system [employer] generated this result transmitted ref erence range: 4.0 - 10 .0 K/L. The refe rence range was not u sed to interpret this result as normal/abnor mal. RBC (test code = 789-8) 2.98 See_Comment L [Au tomated message] The system [employer] generated this result transmitted ref erence range: 4.00 - 5 .00 M/L. The refe rence range was not u sed to interpret this result as normal/abnor mal. MCHC (test code = 786-4) 31.8 See_Comment L [A utomated message] The system [employer] generated this result transmitted ref erence range: [...] L [Aut omated message] 777-3) The system [employer] generated this result transmitted ref erence range: 150 - 43 0 K/CU MM. The referen ce range was not u sed to interpret this result as normal/abnor mal. MPV (test code = 10.8 fL 6.0-11.5 49201-6) nRBC (test code = 413) 1 See_Comment H [Aut omated message] The system [employer] generated this result transmitted ref erence range: [...] See_Comment [Aut omated message] 670) The system [employer] generated this result transmitted ref erence range: 1.80 - 8 .00 K/L. The refe rence range was not u sed to interpret this result as normal/abnor mal. # Lymphs (test code = 1.73 See_Comment [Auto mated message] 414) The system [employer] generated this result transmitted ref erence range: 1.48 - 4 .50 K/L. The refe rence range was not u sed to interpret this result as normal/abnor mal. # Monos (test code = 0.38 See_Comment [Autom ated message] 415) The system [employer] generated this result transmitted ref erence range: 0.00 - 1 .30 K/L. The refe rence range was not u sed to interpret this result as normal/abnor mal. # Eos (test code = 416) 0.02 See_Comment [Au tomated message] The system [employer] generated this result transmitted ref erence range: 0.00 - 0 .50 K/L. The refe rence range was not u sed to interpret this result as normal/abnor mal. # Baso (test code = 417) 0.01 See_Comment [A utomated message] The system [employer] generated this result transmitted ref erence range: 0.00 - 0 .20 K/L. The refe rence range was not u sed to interpret this result as normal/abnor mal. Immature 2 % 0-0 H Granulocytes-Relative (test code = 2801) Lab Interpretation (test Abnormal code = 48557-1) [facility] W/PLT COUNT & AUTO [id number] 05:50:18 Test Item Value Reference Range Interpretation [...] PERCENT (BEAKER) (test code = 2801) POCT-GLUCOSE [id number] 20:50:37 Test Item Value Reference Range Interpretation Comments POC-GLUCOSE METER 176 mg/dL 70-110 H : TESTED A [facility] [address]17 (BEAKER) (test code [facility] [address], = 1538) [place] [address]: Target Network Analyst/Techni unique ID = [id number] for Elizabeth Joshua POCT-GLUCOSE [id number] 17:10:15 Test Item Value Reference Range Interpretation Comments POC-GLUCOSE METER 223 mg/dL 70-110 H : TESTED A T [facility] [address] (BEAKER) (test code [address], = 1538) [facility] [address]: Target Network Analyst/Techni unique ID = [id number] for Breanna Helm POCT-GLUCOSE [id number] 11:50:56 Test Item Value Reference Range Interpretation Comments POC-GLUCOSE METER 241 mg/dL 70-110 H : TESTED A [facility] [address] (BEAKER) (test code [address], = 1538) [place] [address]: Target Network Analyst/Techni unique ID = [id number] for Breanna Helm RAD, CHEST, 1 VIEW, NON [id number] 09:19:00Reason for exam:->[facility] : 1950 Sex: FFINAL REPORT Chest, 1 view, 07/10/2021 8:16 AM. History: Hypoxia, Covid pneumonia. Comparison: 07/06/2021. Discussion: The cardiac silhouette is stable. Bilateral interstitial and patchy airspace opacities are unchanged. There is no pneumothorax or pleural effusion. The soft tissues and osseous structures are intact. IMPRESSION: Bilateral pneumonia without significant change. Signed: Francisco Perez Verified Date/Time: 07/10/2021 09:19:31 Reading Location: [facility] Radiology Reading Room POCT-GLUCOSE [id number] 06:20:04 Test Item Value Reference Range Interpretation Comments POC-GLUCOSE METER 207 mg/dL 70-110 H : TESTED A [facility] [address] (BEAKER) (test code [address], = 1538) [facility] [address]: Target Network Analyst/Techni unique ID = [id number] for Jesus Gil COMPREHENSIVE METABOLIC [id number] 05:46:05 Test Item Value Reference Range Interpretation [...] S NOT APPLICABLE FOR DIALYSIS PATIEN TS. Target Network Analyst ID - [id number] ID - [id number] ID - [id number] ID - [id number] ID - [id number] ID - [id number] ID - [id number] ID - [id number] ID - [id number] ID - [id number] ID - [id number] ID - [id number] ID - [id number] ID - [id number] ID - [id number] ID - [id number] 05:44:15 Test Item Value Reference Range Interpretation Comments MAGNESIUM (BEAKER) (test code = 2.0 mg/dL 1.5-3.0 627) Target Network Analyst ID - [id number] ID - [id number] ID - [id number] ID - [id number] W/PLT COUNT & AUTO [id number] 05:11:45 Test Item Value Reference Range Interpretation [...] PERCENT (BEAKER) (test code = 2801) POCT-GLUCOSE [id number] 20:27:38 Test Item Value Reference Range Interpretation Comments POC-GLUCOSE METER 191 mg/dL 70-110 H : TESTED A [facility] [address] (BEAKER) (test code [facility], = 1538) [place] [address]: Target Network Analyst/Techni unique ID = [id number] for Boyt e, Don POCT-GLUCOSE [id number] 18:34:59 Test Item Value Reference Range Interpretation Comments POC-GLUCOSE METER 241 mg/dL 70-110 H : TESTED A [facility] [address] (BEAKER) (test code [facility], = 1538) [place] [address]: Target Network Analyst/Techni unique ID = [id number] for Juany r, Breanna POCT-GLUCOSE [id number] 18:34:58 Test Item Value Reference Range Interpretation Comments POC-GLUCOSE METER 240 mg/dL 70-110 H : TESTED A [facility] [address] (BEAKER) (test code [facility], = 1538) [place] [address]: Target Network Analyst/Techni unique ID = [id number] for Juany r, Breanna POCT-GLUCOSE [id number] 06:43:22 Test Item Value Reference Range Interpretation Comments POC-GLUCOSE METER 102 mg/dL 70-110 : TESTED A [facility] [address] (BEAKER) (test code [address], = 1538) [facility] [address]: Target Network Analyst/Techni unique ID = [id number] for Will iams, Ila Prepare Leuko-Red [id number] 23:54:00 Test Item Value Reference Range Interpretation Comments CROSSMATCH (test code = 2264) COMPATIBLE Unit ABO (test code = O Pos [id number]) UNIT NUMBER (test code = [id number] 934-0) Status (test code = 1584701) [facility] Blood Bank Product (test code RED BLOOD CELLS = 2263) PRODUCT CODE (test code = Q0331L81 933-2) [facility] [id number] 23:54:00 Test Item Value Reference Range Interpretation Comments CROSSMATCH (test code = 2264) COMPATIBLE Unit ABO (test code = O Pos 7065315) UNIT NUMBER (test code = [id number] 934-0) Status (test code = 5785126) [facility] Blood Bank Product (test code RED BLOOD CELLS = 2263) PRODUCT CODE (test code = [id number] 933-2) [facility] [id number] 23:54:00 Test Item Value Reference Range Interpretation Comments CROSSMATCH (test code = 2264) COMPATIBLE Unit ABO (test code = O Pos 3233889) UNIT NUMBER (test code = [id number] 934-0) Status (test code = 6313798) [facility] Blood Bank Product (test code RED BLOOD CELLS = 2263) PRODUCT CODE (test code = [id number] 933-2) [facility] HospitalPOCT-GLUCOSE [id number] 20:38:01 Test Item Value Reference Range Interpretation Comments POC-GLUCOSE METER 217 mg/dL 70-110 H : TESTED A T [facility] [address] (BEAKER) (test code [address], = 1538) [place] [address] 478: Target Network Analyst/Techni unique ID = [id number] for Ila Zhao POCT-GLUCOSE [id number] 15:50:59 Test Item Value Reference Range Interpretation Comments POC-GLUCOSE METER 292 mg/dL 70-110 H : TESTED A T [facility] [address] (BEAKER) (test code [address], = 1538) [place] [address] 478: Target Network Analyst/Techni unique ID = [id number] for Conchis antes, Crystal POCT-GLUCOSE [id number] 11:51:33 Test Item Value Reference Range Interpretation Comments POC-GLUCOSE METER 126 mg/dL 70-110 H : TESTED A T [facility] [address] (BEAKER) (test code [address], = 1538) [place] [address] 478: Target Network Analyst/Techni unique ID = [id number] for Conchis crandall, Crystal POCT-GLUCOSE [id number] 11:51:31 Test Item Value Reference Range Interpretation Comments POC-GLUCOSE METER 177 mg/dL 70-110 H : TESTED A T [facility] [address] (BEAKER) (test code [address], = 1538) [place] [address] 478: Target Network Analyst/Techni unique ID = [id number] for Josiane Vicente COMPREHENSIVE METABOLIC [id number] 05:57:28 Test Item Value Reference Range Interpretation [...] S NOT APPLICABLE FOR DIALYSIS PATIEN TS. Target Network Analyst ID - [id number] ID - [id number] ID - [id number] ID - [id number] ID - [id number] ID - [id number] ID - [id number] ID - [id number] ID - [id number] ID - [id number] ID - [id number] ID - [id number] ID - [id number] ID - [id number] ID - [id number] ID - [id number] [id number] 05:53:42 Test Item Value Reference Range Interpretation Comments MAGNESIUM (BEAKER) (test code = 1.8 mg/dL 1.5-3.0 627) Target Network Analyst ID - [id number] ID - [id number] ID - [id number] ID - [id number] W/PLT COUNT & AUTO [id number] 05:37:23 Test Item Value Reference Range Interpretation [...] PERCENT (BEAKER) (test code = 2801) POCT-GLUCOSE [id number] 23:12:51 Test Item Value Reference Range Interpretation Comments POC-GLUCOSE METER 244 mg/dL 70-110 H : TESTED A T [facility] [address] (BEAKER) (test code [address], = 1538) [facility] [address] 478: Target Network Analyst/Techni unique ID = [id number] for Raegan Vicentery David POCT-GLUCOSE [id number] 15:53:03 Test Item Value Reference Range Interpretation Comments POC-GLUCOSE METER 237 mg/dL 70-110 H : TESTED A T [facility] [address] (BEAKER) (test code [address], = 1538) [place] [address] 478: Target Network Analyst/Techni unique ID = [id number] for Meme Buckner HEMORRHAGE IMAGING, [id number] 12:49:00We need the study done todayUnlisted Reason for Exam - Click Yes and Enter Reason Below->No [facility] : 1950 Sex: FFINAL REPORT PROCEDURE: HEMORRHAGE STUDY with RBCs CPT CODE: 40099 INDICATION: Gastrointestinal Bleeding PROTOCOL: 28.4 mCi of [...] Signed: Bahman Conroy Verified Date/Time: 07/07/2021 12:49:47 POCT-GLUCOSE [id number] 12:10:46 Test Item Value Reference Range Interpretation Comments POC-GLUCOSE METER 168 mg/dL 70-110 H : TESTED A T [facility] [address] (BEAKER) (test code [address], = 1538) [place] [address] 478: Target Network Analyst/Techni unique ID = [id number] for Meme Buckner COMPREHENSIVE METABOLIC [id number] 07:13:02 Test Item Value Reference Range Interpretation [...] S NOT APPLICABLE FOR DIALYSIS PATIEN TS. Target Network Analyst ID - LITOOperator ID - LITOOperator ID - LITOOperator ID - LITOOperator ID - LITOOperator ID - LITOOperator ID - LITOOperator ID - LITOOperator ID - LITOOperator ID - LITOOperator ID - LITOOperator ID - LITOOperator ID - LITOOperator ID - LITOOperator ID - LITOOperator ID - [id number] 07:08:35 Test Item Value Reference Range Interpretation Comments MAGNESIUM (BEAKER) (test code = 2.0 mg/dL 1.5-3.0 627) Target Network Analyst ID - LITOOperator ID - LITOOperator ID - LITOOperator ID - LITOCBC W/PLT COUNT & AUTO [id number] 06:56:12 Test Item Value Reference Range Interpretation [...] PERCENT (BEAKER) (test code = 2801) POCT-GLUCOSE [id number] 06:52:19 Test Item Value Reference Range Interpretation Comments POC-GLUCOSE METER 206 mg/dL 70-110 H : TESTED A T [facility] [address] (BEAKER) (test code [address], = 1538) [place] [address] 478: Target Network Analyst/Techni unique ID = [id number] for Elizabeth Joshua POCT-GLUCOSE [id number] 23:49:27 Test Item Value Reference Range Interpretation Comments POC-GLUCOSE METER 140 mg/dL 70-110 H : TESTED A T [facility] [address] (BEAKER) (test code [address], = 1538) [place] [address]: Target Network Analyst/Techni unique ID = [id number] for Josiane Vicente ABORH, [id number] 17:58:00 Test Item Value Reference Range Interpretation Comments ABO Grouping (test code O PINK TOP 07/06/21 @ 1728 = 2588) Rh Factor (test code = POS PINK TOP 07/06/21 @ 1728 2589) [facility] [id number] 17:58:00 Test Item Value Reference Range Interpretation Comments ABO Grouping (test code O PINK TOP 07/06/21 @ 1728 = 2588) Rh Factor (test code = POS PINK TOP 07/06/21 @ 1728 2589) [facility], [id number] 17:58:00 Test Item Value Reference Range Interpretation Comments ABO Grouping (test code O PINK TOP 07/06/21 @ 1728 = 2588) Rh Factor (test code = POS PINK TOP 07/06/21 @ 1728 2589) [facility], [id number] 17:20:00 Test Item Value Reference Range Interpretation Comments ABO/RH AUTOMATED (BEAKER) (test O POSITIVE echo code = 2260) Ab Scrn (test code = 890-4) [facility]GATIVE [facility], [id number] 17:20:00 Test Item Value Reference Range Interpretation Comments ABO/RH AUTOMATED (BEAKER) (test O POSITIVE echo code = 2260) Ab Scrn (test code = 890-4) NEGATIVE [facility], [id number] 17:20:00 Test Item Value Reference Range Interpretation Comments ABO/RH AUTOMATED (BEAKER) (test O POSITIVE echo code = 2260) Ab Scrn (test code = 890-4) NEGATIVE echo [facility] [id number] 16:45:28 Test Item Value Reference Range Interpretation Comments POC-GLUCOSE METER 212 mg/dL 70-110 H : Notified RN/MD: TESTED (BEAKER) (test code AT [address] = 1538) [facility] [address]: Target Network Analyst/Techni unique ID = [id number] for Ezek iel, Erika Manual [id number] 15:09:27 Test Item Value Reference Range Interpretation Comments % Neutros (manual) (test 92 % code = 1359) % Lymphs (manual) (test 7 % code = 1360) % Metamyelo (manual) 1 % 0-0 H (test code = 258) # Neutros (manual) (test 6.35 See_Comment [A utomated message] code = 1365) The system [employer] generated this result transmitted ref erence range: 1.80 - 8 .00 K/L. The refe rence range was not u sed to interpret this result as normal/abnor mal. # Lymphs (manual) (test 0.48 See_Comment L [Au tomated message] code = 1366) The system [employer] generated this result transmitted ref erence range: [...] [A utomated message] = 1353) The system [employer] generated this result transmitted ref erence range: 0 - 0 /1 00 WBC. The refere nce range was not u sed to interpret this result as normal/abnor mal. WBC Morphology (test Normal code = 487) Platelet Morphology Normal (test code = 486) RBC Morphology (test Normal code = 762) Lab Interpretation (test Abnormal code = 16843-7) [facility] [id number] 15:09:27 Test Item Value Reference Range Interpretation Comments % Neutros (manual) (test 92 % code = 1359) % Lymphs (manual) (test 7 % code = 1360) % Metamyelo (manual) 1 % 0-0 H (test code = 258) # Neutros (manual) (test 6.35 See_Comment [A utomated message] code = 1365) The system [employer] generated this result transmitted ref erence range: 1.80 - 8 .00 K/L. The refe rence range was not u sed to interpret this result as normal/abnor mal. # Lymphs (manual) (test 0.48 See_Comment L [Au tomated message] code = 1366) The system [employer] generated this result transmitted ref erence range: [...] [A utomated message] = 1353) The system [employer] generated this result transmitted ref erence range: 0 - 0 /1 00 WBC. The refere nce range was not u sed to interpret this result as normal/abnor mal. WBC Morphology (test Normal code = 487) Platelet Morphology Normal (test code = 486) RBC Morphology (test Normal code = 762) Lab Interpretation (test Abnormal code = 05535-8) [facility] [id number] 15:09:27 Test Item Value Reference Range Interpretation Comments % Neutros (manual) (test 92 % code = 1359) % Lymphs (manual) (test 7 % code = 1360) % Metamyelo (manual) 1 % 0-0 H (test code = 258) # Neutros (manual) (test 6.35 See_Comment [A utomated message] code = 1365) The system [employer] generated this result transmitted ref erence range: 1.80 - 8 .00 K/L. The refe rence range was not u sed to interpret this result as normal/abnor mal. # Lymphs (manual) (test 0.48 See_Comment L [Au tomated message] code = 1366) The system [employer] generated this result transmitted ref erence range: [...] [A utomated message] = 1353) The system [employer] generated this result transmitted ref erence range: 0 - 0 /1 00 WBC. The refere nce range was not u sed to interpret this result as normal/abnor mal. WBC Morphology (test Normal code = 487) Platelet Morphology Normal (test code = 486) RBC Morphology (test Normal code = 762) Lab Interpretation (test Abnormal code = 75097-5) [facility]/PLT COUNT & AUTO [id number] 15:09:27 Test Item Value Reference Range Interpretation [...] (test code Normal = 762) COMPREHENSIVE METABOLIC [id number] 13:56:55 Test Item Value Reference Range Interpretation [...] S NOT APPLICABLE FOR DIALYSIS PATIEN TS. Target Network Analyst ID - ACONTEHOperator ID - ACONTEHOperator ID - ACONTEHOperator ID - ACONTEHOperator ID - ACONTEHOperator ID - ACONTEHOperator ID - ACONTEHOperator ID - ACONTEHOperator ID - ACONTEHOperator ID - ACONTEHOperator ID - ACONTEHOperator ID - ACONTEHOperator ID - ACONTEHOperator ID - ACONTEHOperatorID - ACONTEHOperator ID - [id number] 13:53:54 Test Item Value Reference Range Interpretation Comments MAGNESIUM (VIKRAM) (test code = 2.1 mg/dL 1.5-3.0 627) Target Network Analyst ID - ACONTEHOperator ID - ACONTEHOperator ID - ACONTEHOperator ID - ACONTEHPOCT-GLUCOSE [id number] 13:04:56 Test Item Value Reference Range Interpretation Comments POC-GLUCOSE METER 223 mg/dL 70-110 H : Notified RN/MD: TESTED (VIKRAM) (test code AT [facility] [address] = 1538) SEM[place] [facility] [address]: Target Network Analyst/Techni unique ID = [id number] for Ezek iel, Erika RAD, CHEST, 1 VIEW, NON [id number] 09:59:00Reason for exam:->covid pnaShould this be performed at the bedside?->Yes [facility] : 1950 Sex: FFINAL REPORT Chest, 1 view, 07/06/2021 8:20 AM. History: Covid pneumonia. Comparison: 07/03/2021. Discussion: The cardiac silhouette is stable. Bilateral interstitial and patchy airspace opacities are present, with slightly improved aeration at the lung bases. There is no pneumothorax or pleural effusion. Supporting lines and tubes are unchanged. The soft tissues and osseous structures are intact. IMPRESSION: Bilateral pneumonia, slightly improved. Signed: Francisco Perez MDReport Verified Date/Time: 07/06/2021 09:59:51 Reading Location: [facility] Radiology Reading Room POCT-GLUCOSE [id number] 06:43:25 Test Item Value Reference Range Interpretation Comments POC-GLUCOSE METER 200 mg/dL 70-110 H : TESTED A T [facility] 1317 ([facility]) (test code [facility] [address] [facility], = 1538) [place] [address]: Target Network Analyst/Techni unique ID = [id number] for Elizabeth Joshua POCT-GLUCOSE [id number] 16:15:23 Test Item Value Reference Range Interpretation Comments POC-GLUCOSE METER 318 mg/dL 70-110 H : Notified RN/MD: TESTED ([facility]) (test code AT [facility] [address] = 1538) [place] [address]: Target Network Analyst/Techni unique ID = [id number] for Ezek iel, Erika POCT-GLUCOSE [id number] 12:25:37 Test Item Value Reference Range Interpretation Comments POC-GLUCOSE METER 213 mg/dL 70-110 H : Notified RN/MD: TESTED ([facility]) (test code AT [facility] [address] [address] = 1538) [place] [address]: Target Network Analyst/Techni unique ID = [id number] for Ezek iel, Erika POCT-GLUCOSE [id number] 06:53:05 Test Item Value Reference Range Interpretation Comments POC-GLUCOSE METER 177 mg/dL 70-110 H : Notified RN/MD: TESTED ([facility]) (test code AT [facility] [address] [address] = 1538) [place] [address]: Target Network Analyst/Techni unique ID = [id number] for Nimesh Jones si COMPREHENSIVE METABOLIC [id number] 05:51:50 Test Item Value Reference Range Interpretation Comments TOTAL PROTEIN 4.0 gm/dL 6.0-8.5 L ([facility]) (test code = 770) ALBUMIN ([facility]) 2.1 g/dL 3.5-5.0 L (test code = [...] S NOT APPLICABLE FOR DIALYSIS PATIEN TS. Target Network Analyst ID - [id number] ID - [id number] ID - [id number] ID - [id number] ID - [id number] ID - [id number] ID - [id number] ID - [id number] ID - [id number] ID - [id number] ID - [id number] ID - [id number] ID - [id number] ID - [id number] ID - [id number] ID - [id number] W/PLT COUNT & AUTO [id number] 05:50:47 Test Item Value Reference Range Interpretation [...] H PERCENT (BEAKER) (test code = 2801) [id number] 05:43:09 Test Item Value Reference Range Interpretation Comments MAGNESIUM (BEAKER) (test code = 2.3 mg/dL 1.5-3.0 627) Target Network Analyst ID - [id number] ID - [id number] ID - [id number] ID - [id number](MANUAL DIFFERENTIAL)2021-07-04 21:10:33 Test Item Value Reference Range [...] = 762) CBC W/PLT COUNT & AUTO [id number] 21:10:32 Test Item Value Reference Range Interpretation [...] (BEAKER) (test code = 412) [facility] (test code 94 K/CU MM 150-430 L = 756) MEAN PLATELET VOLUME (BEAKER) 10.7 fL 6.0-11.5 (test code = 754) NUCLEATED RED BLOOD CELLS (AKER) 4 /100 WBC 0-0 H (test code = 413) POCT-GLUCOSE [id number] 20:24:31 Test Item Value Reference Range Interpretation Comments POC-GLUCOSE METER 221 mg/dL 70-110 H : Notified RN/MD: TESTED ([facility]) (test code AT [address] = 1538) [place] [address]: Target Network Analyst/Techni unique ID = [id number] for Asya Estes POCT-GLUCOSE [id number] 16:30:17 Test Item Value Reference Range Interpretation Comments POC-GLUCOSE METER 279 mg/dL 70-110 H : Notified RN/MD: TESTED ([facility]) (test code AT [facility] [address] PO[address] = 1538) [place] [address]: Target Network Analyst/Techni unique ID = [id number] for Ezek iel, Erika POCT-GLUCOSE [id number] 11:53:19 Test Item Value Reference Range Interpretation Comments POC-GLUCOSE METER 235 mg/dL 70-110 H : Notified RN/MD: TESTED ([facility]) (test code AT [facility] [address] PO[address] = 1538) [place] [address]: Target Network Analyst/Techni unique ID = [id number] for Ezek iel, Erika [id number] 05:58:15 Test Item Value Reference Range Interpretation Comments MAGNESIUM ([facility]) (test code = 1.6 mg/dL 1.5-3.0 627) Target Network Analyst ID - LITOOperator ID - LITOOperator ID - LITOOperator ID - LITOC- Reactive [id number] 05:57:52 Test Item Value Reference Range Interpretation Comments CRP (test code = 676) 1.16 mg/dL 0.00-0.50 H LINDY (test code = LINDY) Target Network Analyst ID - FLORENCIO Lab Interpretation (test Abnormal code = 99509-7) [facility] [id number] 05:57:52 Test Item Value Reference Range Interpretation Comments CRP (test code = 676) 1.16 mg/dL 0.00-0.50 H LINDY (test code = LINDY) Target Network Analyst ID - FLORENCIO Lab Interpretation (test Abnormal code = 29025-1) [facility] [id number] 05:57:52 Test Item Value Reference Range Interpretation Comments CRP (test code = 676) 1.16 mg/dL 0.00-0.50 H LINDY (test code = LINDY) Target Network Analyst ID - FLORENCIO Lab Interpretation (test Abnormal code = 68231-6) [facility] [id number] 05:57:52 Test Item Value Reference Range Interpretation Comments C-REACTIVE PROTEIN (BEAKER) (test 1.16 mg/dL 0.00-0.50 H code = 676) Target Network Analyst ID - LITOBasic Metabolic [id number] 05:57:46 Test Item Value Reference Range Interpretation Comments Sodium (test code = 138 meq/L 527-889 7327-2) Potassium (test code 2.9 meq/L 3.6-5.5 L = 2823-3) Chloride (test code = 108 meq/L 98-106 H 2075-0) CO2 (test code = 20 meq/L 20-29 8-9) BUN (test code = 18 mg/dL 10-26 3094-0) Creatinine (test code 0.72 mg/dL 0.50-1.20 = 2160-0) Glucose (test code = 261 mg/dL 70-110 H 2345-7) Calcium (test code = 7.9 mg/dL 8.5-10.5 L 38180-1) EGFR (test code = 97 mL/min/1.73 [place] [address]-7) m NOT ACCURATE CREATININE CLEARANCE IN PREDICTING GLOMERULAR FILTRATION RATE . ESTIMATED GFR I S NOT APPLICABLE FOR DIALYSIS PATIENTS. LINDY (test code = LINDY) Target Network Analyst ID - LITOOperator ID - LITOOperator ID - LITOOperator ID - LITOOperator ID - LITOOperator ID - LITOOperator ID - LITOOperator ID - LITOOperator ID - LITOOperator ID - FLORENCIO Lab Interpretation Abnormal (test code = 07992-4) [facility] Metabolic [id number] 05:57:46 Test Item Value Reference Range Interpretation Comments Sodium (test code = 138 meq/L 838-248 0608-2) Potassium (test code 2.9 meq/L 3.6-5.5 L = 2823-3) Chloride (test code = 108 meq/L 98-106 H 2075-0) CO2 (test code = 20 meq/L 20-2027-9) BUN (test code = 18 mg/dL 10-26 3094-0) Creatinine (test code 0.72 mg/dL 0.50-1.20 = 2160-0) Glucose (test code = 261 mg/dL 70-110 H 2345-7) Calcium (test code = 7.9 mg/dL 8.5-10.5 L 62964-2) EGFR (test code = 97 mL/min/1.[place] [address]-8) m NOT ACCURATE CREATININE CLEARANCE IN PREDICTING GLOMERULAR FILTRATION RATE . ESTIMATED GFR I S NOT APPLICABLE FOR DIALYSIS PATIENTS. LINDY (test code = LINDY) Target Network Analyst ID - LITOOperator ID - LITOOperator ID - LITOOperator ID - LITOOperator ID - LITOOperator ID - LITOOperator ID - LITOOperator ID - LITOOperator ID - LITOOperator ID - FLORENCIO Lab Interpretation Abnormal (test code = 91460-5) [facility] Metabolic [id number] 05:57:46 Test Item Value Reference Range Interpretation Comments Sodium (test code = 138 meq/L 896-667 1170-2) Potassium (test code 2.9 meq/L 3.6-5.5 L = 2823-3) Chloride (test code = 108 meq/L 98-106 H 2075-0) CO2 (test code = 20 meq/L 20-2027-9) BUN (test code = 18 mg/dL 10- 3094-0) Creatinine (test code 0.72 mg/dL 0.50-1.20 = 2160-0) Glucose (test code = 261 mg/dL 70-110 H 2345-7) Calcium (test code = 7.9 mg/dL 8.5-10.5 L 39132-4) EGFR (test code = 97 mL/min/1.[place] [address]-4) m NOT ACCURATE CREATININE CLEARANCE IN PREDICTING GLOMERULAR FILTRATION RATE . ESTIMATED GFR I S NOT APPLICABLE FOR DIALYSIS PATIENTS. LINDY (test code = LINDY) Target Network Analyst ID - LITOOperator ID - LITOOperator ID - LITOOperator ID - LITOOperator ID - LITOOperator ID - LITOOperator ID - LITOOperator ID - LITOOperator ID - LITOOperator ID - FLORENCIO Lab Interpretation Abnormal (test code = 90448-4) [facility] METABOLIC [id number] 05:57:46 Test Item Value Reference Range Interpretation Comments SODIUM (BEAKER) 138 meq/L 135-148 (test code = 381) POTASSIUM (BEAKER) 2.9 meq/L 3.6-5.5 L (test code = 379) CHLORIDE (BEAKER) 108 meq/L 98-106 H (test code = 382) CO2 (BEAKER) (test 20 meq/L code = 355) BLOOD UREA NITROGEN 18 [...] S NOT APPLICABLE FOR DIALYSIS PATIEN TS. Target Network Analyst ID - LITOOperator ID - LITOOperator ID - LITOOperator ID - LITOOperator ID - LITOOperator ID - LITOOperator ID - LITOOperator ID - LITOOperator ID - LITOOperator ID - LITOCBC W/PLT COUNT & AUTO [id number] 05:39:45 Test Item Value Reference Range Interpretation [...] H PERCENT (BEAKER) (test code = 2801) [id number] 05:35:53 Test Item Value Reference Range Interpretation Comments D-Dimer, Quant (test 3.03 See_Comment H Final I nformation code = 71829-9) (Auto Output ) [Automated message] The system which generated this result transmitted reference range : <0.50 MG/L FEU. The reference range was not used to interpr et this result as normal/abnormal . LINDY (test code = REGARDING D-DIMER LINDY) RESULTS: The 98% NPV (Negative Predictive Value) for DVT/PE exclusion is 0.50 mg/L FEU as suggested by the skin fitter and as approved by the FDA. Lab Interpretation Abnormal (test code = 26160-0) [facility]nb25[facility]91-02 05:35:53 Test Item Value Reference Range Interpretation Comments D-Dimer, Quant (test 3.03 See_Comment H Final I nformation code = 45950-4) (Auto Output ) [Automated message] The system which generated this result transmitted reference range : <0.50 MG/L FEU. The reference range was not used to interpr et this result as normal/abnormal . LINDY (test code = REGARDING D-DIMER LINDY) RESULTS: The 98% NPV (Negative Predictive Value) for DVT/PE exclusion is 0.50 mg/L FEU as suggested by the skin fitter and as approved by the FDA. Lab Interpretation Abnormal (test code = 89720-5) [facility]-cskqu9340-04-89 05:35:53 Test Item Value Reference Range Interpretation Comments D-Dimer, Quant (test 3.03 See_Comment H Final I nformation code = 83577-1) (Auto Output ) [Automated message] The system which generated this result transmitted reference range : <0.50 MG/L FEU. The reference range was not used to interpr et this result as normal/abnormal . LINDY (test code = REGARDING D-DIMER LINDY) RESULTS: The 98% NPV (Negative Predictive Value) for DVT/PE exclusion is 0.50 mg/L FEU as suggested by the skin fitter and as approved by the FDA. Lab Interpretation Abnormal (test code = 05737-2) [facility]-[id number] 05:35:53 Test Item Value Reference Range Interpretation Comments D-DIMER QUANTITATIVE 3.03 MG/L FEU <0.50 H Final Information (VIKRAM) (test code = (Auto Output) 671) REGARDING D-DIMER RESULTS: The 98% NPV (Negative Predictive Value) for DVT/PE exclusion is 0.50 mg/LFEU as suggested by the skin fitter and as approved by the FDA.POCT-GLUCOSE [id number] 04:52:50 Test Item Value Reference Range Interpretation Comments POC-GLUCOSE METER 242 mg/dL 70-110 H : TESTED A T [facility] 1317 ([facility]) (test code [facility] [address] [facility], = 1538) [place] [address]: Target Network Analyst/Techni unique ID = [id number] for Di Kolb POCT-GLUCOSE [id number] 20:19:15 Test Item Value Reference Range Interpretation Comments POC-GLUCOSE METER 337 mg/dL 70-110 H : Notified RN/MD: TESTED ([facility]) (test code [facility] [address] = 1538) [place] [id number]: [employer] Network Analyst/Techni unique ID = [id number] for Di Kolb POCT-GLUCOSE [id number] 16:27:26 Test Item Value Reference Range Interpretation Comments POC-GLUCOSE METER 257 mg/dL 70-110 H : Notified RN/MD: TESTED ([facility]) (test code [facility] [address] = 1538) [place] [id number]: [employer] Analyst/Techni unique ID = [id number] for Ezek iel, Erika POCT-GLUCOSE [id number] 12:39:48 Test Item Value Reference Range Interpretation Comments POC-GLUCOSE METER 187 mg/dL 70-110 H : Notified RN/MD: TESTED ([facility]) (test code AT [facility] [address] = 1538) [place] [address]: Target Network Analyst/Techni unique ID = [id number] for Ezek iel, Erika RAD, CHEST, 1 VIEW, NON [id number] 07:37:00Reason for exam:- >pneumoniaShould this be performed at the bedside?->Yes [facility] 1950 Sex: FFINAL REPORT Chest AP portable semierect Comparison exam: 06/30/2021 History provided: Pneumonia, COVID positive Heart size magnified by projection. Bilateral airspace disease predominating peripherally and at the bases persists consistent with COVID 19 infection. Signed: Jason Delgado Verified Date/Time: 07/03/2021 07:37:18 Reading Location: [facility] Radiology Reading Room POCT-GLUCOSE [id number] 06:33:31 Test Item Value Reference Range Interpretation Comments POC-GLUCOSE METER 286 mg/dL 70-110 H : [facility] (TimePoints) (test code [facility] [address], = 1538) [place] [address]: Target Network Analyst/Techni unique ID = [id number] for Helio Joshualeen POCT-GLUCOSE [id number] 21:14:22 Test Item Value Reference Range Interpretation Comments POC-GLUCOSE METER 299 mg/dL 70-110 H : TESTED A T [facility] [address] (BEAKER) (test code [address], = 1538) [place] [address]: Target Network Analyst/Techni unique ID = [id number] for Brow n, Elizabeth POCT-GLUCOSE [id number] 15:31:54 Test Item Value Reference Range Interpretation Comments POC-GLUCOSE METER 287 mg/dL 70-110 H : TESTED A T [facility] [address] (BEAKER) (test code [address], = 1538) [facility] 77 [address]: Target Network Analyst/Techni unique ID = [id number] for Conchis crandall Crystal POCT-GLUCOSE [id number] 12:06:10 Test Item Value Reference Range Interpretation Comments POC-GLUCOSE METER 259 mg/dL 70-110 H : TESTED A T [facility] [address] (BEAKER) (test code [address], = 1538) [place] [address]: Target Network Analyst/Techni unique ID = [id number] for Conchis antes, Crystal CT, CHEST WITH IV CONTRAST- PE TEST [id number] 11:13:00Unlisted Reason for Exam - Click Yes and Enter Reason Below->No [facility] : 1950 Sex: FFINAL REPORT CT OF THE CHEST, PULMONARY EMBOLISM PROTOCOL CLINICAL HISTORY: PE suspected,intermediate probability, positive d-dimer COMPARISON FILM: Chest radiograph from 06/30/2021 TECHNIQUE: Precontrast axial images at the level of the pulmonary outflow tract are obtained for the purpose of contrast bolus tracking. Postcontrast axial images of the chest are subsequently obtained with optimal pulmonary arterial enhancement. Coronal and sagittal reformats were reviewed. This exam was performed according to our departmental dose- optimization program which includes automated exposure control, adjustment [...] 1.3 cm hypodense nodule identified within the right thyroid lobe. Givensmall size, no further evaluation is warranted. The remaining visualized structures within the base the neck demonstrate no significant abnormalities. The thoracic aorta is normal course and caliber. The heart is not enlarged. No abnormal pericardial fluid is present. There is a small amount of pneumomediastinum present. The trachea and proximal airways are patent. Examination of the lungs demonstrates patchy groundglass and consolidative opacities with a peripheral predominance. There is no evidence for lobar consolidation, pneumothorax, or pleural effusion. Limited views of the upper abdomen demonstrate no significant abnormalities. Cholecystectomy clips are noted within the right upper quadrant. The osseous structures demonstrate no evidence for acute fracture or destructive process. The extrathoracic soft tissues are unremarkable. IMPRESSION: No evidence for pulmonary thromboembolism. Patchygroundglass and consolidative opacities identified bilaterally with a peripheral predominance. Findings are nonspecific but can be seen in setting of a multifocal/viral infectious process. Small amountof pneumomediastinum noted. Signed: Shane Alvarez MDReport Verified Date/Time: 07/02/2021 11:13:24 Reading Location: [facility] Radiology Reading Room POCT-GLUCOSE [id number] 09:06:02 Test Item Value Reference Range Interpretation Comments POC-GLUCOSE METER 297 mg/dL 70-110 H : [facility] (BEAKER) (test code [facility] [address], = 1538) [place] [address]: Target Network Analyst/Techni unique ID = [id number] for Elizabeth Joshua POCT-GLUCOSE [id number] 21:42:04 Test Item Value Reference Range Interpretation Comments POC-GLUCOSE METER 300 mg/dL 70-110 H : TESTED A T [facility] [address] (BEAKER) (test code [address], = 1538) [place] [address]: Target Network Analyst/Techni unique ID = [id number] for Tammie n Elizabeth POCT-GLUCOSE [id number] 16:47:29 Test Item Value Reference Range Interpretation Comments POC-GLUCOSE METER 179 mg/dL 70-110 H : TESTED A T [facility] 1317 (BEAKER) (test code [address], = 1538) [facility] 77 [address]: Target Network Analyst/Techni unique ID = [id number] for Alma Dove VENOUS DOPPLER LEGS, [id number] 12:41:00Reason for exam:->positive d dimerCH[facility] : 1950 Sex: FFINAL REPORT INDICATION: Positive d-dimer, Covid positive COMPARISONS: None. BILATERAL LOWER EXTREMITY ULTRASOUND: Limited Covid protocol evaluation, grayscale evaluation with compression imaging was obtained of bilateral common femoral, superficial femoral, popliteal, posterior tibial and peroneal veins. Normal compressibility was demonstrated. No intraluminal thrombus was identified.IMPRESSION: No evidence of lower extremity deep vein thrombosis, bilaterally. Signed: Jonnie Song MDRepshriners hospitals for children Verified Date/Time: 07/01/2021 12:41:57 Reading Location: [address] Ortho Consult Reading Room CBC W/PLT COUNT & AUTO [id number] 12:17:11 Test Item Value Reference Range Interpretation [...] (BEAKER) (test code Normal = 762) POCT-GLUCOSE [id number] 11:55:02 Test Item Value Reference Range Interpretation Comments POC-GLUCOSE METER 300 mg/dL 70-110 H : TESTED A T [facility] [address] (BEAKER) (test code [address], = 1538) [facility] 77 [address]: Target Network Analyst/Techni unique ID = [id number] for Alma Dove COMPREHENSIVE METABOLIC [id number] 10:34:18 Test Item Value Reference Range Interpretation [...] U/L 5-50 (test code = 347) EGFR (TimePoints) (test 80 mL/min/1.73 ESTIMA LOS GFR IS code = 1092) sq m NOT ACCURATE CREATININE CLEARANCE IN PREDICTING GLOMERULAR FILTRATION RATE . ESTIMATED GFR I S NOT APPLICABLE FOR DIALYSIS PATIEN TS. Target Network Analyst ID - [id number] ID - crtz17Cpdjkbtk ID - iuqp90Elynnepy ID - sjkb93Ncacfpac ID - jtbm05Skyhvyky ID - unft70Afixkjec ID - fjny89Lkqstpro ID - wyae47Qobdbqrk ID - jupw00Tovjrkpq ID - kzug70Tofgbjfh ID - dhxk83Pxkwzqsr ID - lejt90Rqsjxppb ID - qcgp92Znoyspfu ID - gnwh23Hgczauqg ID - grnt78Zppkskdl ID - unjr61Edboizsl ID - ntzf54Mjbvopcv ID - izgg22Gwswtmcv ID - zmue92K-YPFAIETB [id number] 10:26:23 Test Item Value Reference Range Interpretation Comments C-REACTIVE PROTEIN (TimePoints) (test 0.89 mg/dL 0.00-0.50 H code = 676) Target Network Analyst ID - [id number]-[id number] 10:24:05 Test Item Value Reference Range Interpretation Comments D-DIMER QUANTITATIVE 3.37 MG/L FEU <0.50 H Final Information (TimePoints) (test code = (Auto Output) 671) REGARDING D-DIMER RESULTS: The 98% NPV (Negative Predictive Value) for DVT/PE exclusion is 0.50 mg/LFEU as suggested by the skin fitter and as approved by the FDA.POCT-GLUCOSE [id number] 06:44:39 Test Item Value Reference Range Interpretation Comments POC-GLUCOSE METER 275 mg/dL 70-110 H : TESTED A T [facility] 1317 (TimePoints) (test code [facility] [address], = 1538) [facility] 77 [address]: Target Network Analyst/Techni unique ID = [id number] for Elizabeth Joshua POCT-GLUCOSE [id number] 21:22:38 Test Item Value Reference Range Interpretation Comments POC-GLUCOSE METER 425 mg/dL 70-110 HH : Notified RN/MD: TESTED (TimePoints) ([facility] [address] = 1538) [facility] [address]: Target Network Analyst/Techni unique ID = [id number] for Elizabeth Joshua POCT-GLUCOSE [id number] 16:28:18 Test Item Value Reference Range Interpretation Comments POC-GLUCOSE METER 432 mg/dL 70-110 HH : Notified RN/MD: TESTED ([facility]) (test code AT [facility] [address] = 1538) PKY, [facility] [address]: Target Network Analyst/Techni unique ID = [id number] for Piyush Mccain POCT-GLUCOSE [id number] 11:49:50 Test Item Value Reference Range Interpretation Comments POC-GLUCOSE METER 376 mg/dL 70-110 H : TESTED A T [facility] 1317 ([facility]) (test code [address] [facility], = 1538) [facility] 77 [address]: Target Network Analyst/Techni unique ID = [id number] for Alma Dove RAD, CHEST, 1 VIEW, NON [id number] 09:25:00Reason for exam:- >pneumoniaShould this be performed at the bedside?->Yes [facility] : 1950 Sex: FFINAL REPORT RAD, CHEST, 1 VIEW, NON DEPT INDICATION: pneumonia COMPARISON: 06/29/2021 FINDINGS: Portable frontal view of the chest. IMPRESSION: Support Lines: None Lungs and pleura: Unchanged bibasilar airspace disease No significant pneumothorax. Heart and mediastinum: Stable contours. Additional findings: None. Signed: Lydia Rodrigues Verified Date/Time: 06/30/2021 09:25:48 Reading Location: [address] Neuro Reading Room Electronically signed by: Sherry REYNA 06/30/2021 09:25 AMPOCT-GLUCOSE METER 2021-06-30 06:32:32 Test Item Value Reference Range Interpretation Comments POC-GLUCOSE METER 327 mg/dL 70-110 H : Notified RN/MD: TESTED (BEAKER) (test code AT [facility] [address] = 1538) [facility] [address]: Target Network Analyst/Techni unique ID = [id number] for Rupert oscar [facility] COMPREHENSIVE METABOLIC [id number] 05:27:30 Test Item Value Reference Range Interpretation [...] S NOT APPLICABLE FOR DIALYSIS PATIEN TS. Target Network Analyst ID - [id number] ID - HBWX64Yxruakid ID - QJKS16Ftrigpja ID - NWHA13Zuiopvwp ID - BKUZ98Ftowoasv ID - NZNS98Ebssyvdd ID - OSGR22Daucgmmy ID - FZOL09Htixdkph ID - HJSQ04Pezvhntc ID - RQUQ55Tzabebw function [id number] 05:27:10 Test Item Value Reference Range Interpretation Comments Protein, Total (test 4.5 See_Comment L [Autom ated code = 2885-2) message] The system which generated this result transmit los reference range : 6.0 - 8.5 gm/dL . The reference range was not u sed to interpret th is result as normal/abnormal . Albumin (test code = 2.5 g/dL 3.5-5.0 L 27749-5) Total Bilirubin (test 0.4 mg/dL 0.1-1.2 code = 1974-) Bilirubin, Direct 0.2 mg/dL 0.0-0.4 (test code = 1967-) Alkaline Phosphatase 39 U/L 30-115 (test code = 6768-6) AST (test code = 23 U/L 5-40 1920-8) ALT (test code = 50 U/L 5-50 1742-6) LINDY (test code = LINDY) Target Network Analyst ID - [id number] ID - VYBD76Rrgcbqfe ID - TZYX53Oiqfnhpw ID - CDUM85Otapxsjo ID - ELAI54Iesnsbkz ID - JCUE09Hkaidfdz ID - [id number] Lab Interpretation Abnormal (test code = 76399-6) [facility] [id number] 05:27:10 Test Item Value Reference Range Interpretation Comments Protein, Total (test 4.5 See_Comment L [Autom ated code = 2885-2) message] The system which generated this result transmit los reference range : 6.0 - 8.5 gm/dL . The reference range was not u sed to interpret th is result as normal/abnormal . Albumin (test code = 2.5 g/dL 3.5-5.0 L 02451-5) Total Bilirubin (test 0.4 mg/dL 0.1-1.2 code = 1974-) Bilirubin, Direct 0.2 mg/dL 0.0-0.4 (test code = 1967-) Alkaline Phosphatase 39 U/L 30-115 (test code = 6768-6) AST (test code = 23 U/L 40 192-8) ALT (test code = 50 U/L 50 2-6) LINDY (test code = LINDY) Target Network Analyst ID - [id number] ID - GBQV00Riwxhbvn ID - XDNT65Quddgqcg ID - BVDE71Apwhrydz ID - YLRA38Wqnudubl ID - QILG27Idffjdlm ID - [id number] Lab Interpretation Abnormal (test code = 48612-0) [facility] [id number] 05:27:10 Test Item Value Reference Range Interpretation Comments Protein, Total (test 4.5 See_Comment L [Autom ated code = 2885-2) message] The system which generated this result transmit los reference range : 6.0 - 8.5 gm/dL . The reference range was not u sed to interpret th is result as normal/abnormal . Albumin (test code = 2.5 g/dL 3.5-5.0 L 67823-7) Total Bilirubin (test 0.4 mg/dL 0.1-1.2 code = 1974-2) Bilirubin, Direct 0.2 mg/dL 0.0-0.4 (test code = 1968-04) Alkaline Phosphatase 39 U/L 30-115 (test code = 6768-6) AST (test code = 23 U/L 40 1919-8) ALT (test code = 50 U/L 50 1742-6) LINDY (test code = LINDY) Target Network Analyst ID - [id number] ID - OJBL37Hxbaoven ID - QOQX79Nkqqbclt ID - OKVU14Typlsnan ID - JMIS55Ltslrwyy ID - GZFE64Jhzonrvc ID - [id number] Lab Interpretation Abnormal (test code = 31330-6) [facility] [id number] 05:27:10 Test Item Value Reference Range Interpretation [...] (test code = 50 U/L 5-50 347) Target Network Analyst ID - [id number] ID - GSOW84Wwroyrid ID - UWCO23Nidpthcs ID - ZYEQ26Aqbasdnv ID - XRHH54Cdpgpxbf ID - EIMB02Ltsisutq ID - WFDN99Rxtus panel 2021-06-30 05:27:05 Test Item Value Reference Range Interpretation Comments Triglycerides (test 172 mg/dL code = 2571-8) Cholesterol (test code 157 mg/dL = 3-3) HDL (test code = 27 mg/dL 2084-9) LDL Calculated (test 96 mg/dL code = 94867-7) LINDY (test code = LINDY) Triglyceride Reference Range: Low Risk <150 Borderline 150-199 High Risk 200-499 Very High Risk >=500 Cholesterol Reference Range: Low Risk <200 Borderline 200-239 High Risk >240 HDL Cholesterol Reference Range: Low Risk >=60 High Risk <40 LDL Cholesterol Reference Range: Optimal <100 Near Optimal 100-129 Borderline 130-159 High 160-189 Very High >=190 Target Network Analyst ID - [id number] ID - LJVF71Zeoetrxu ID - [id number] [facility] naffn8940-11-30 05:27:05 Test Item Value Reference Range Interpretation Comments Triglycerides (test 172 mg/dL code = 2571-8) Cholesterol (test code 157 mg/dL = 3-3) HDL (test code = 27 mg/dL 2084-9) LDL Calculated (test 96 mg/dL code = 56883-5) LINDY (test code = LINDY) Triglyceride Reference Range: Low Risk <150 Borderline 150-199 High Risk 200-499 Very High Risk >=500 Cholesterol Reference Range: Low Risk <200 Borderline 200-239 High Risk >240 HDL Cholesterol Reference Range: Low Risk >=60 High Risk <40 LDL Cholesterol Reference Range: Optimal <100 Near Optimal 100-129 Borderline 130-159 High 160-189 Very High >=190 Target Network Analyst ID - RNOS43Cnorqwxn ID - CHTX47Bixekpcl ID - [id number] [facility] [id number] 05:27:05 Test Item Value Reference Range Interpretation Comments Triglycerides (test 172 mg/dL code = 2571-8) Cholesterol (test code 157 mg/dL = 2093-3) HDL (test code = 27 mg/dL 2085-9) LDL Calculated (test 96 mg/dL code = 42705-8) LINDY (test code = LINDY) Triglyceride Reference Range: Low Risk <150 Borderline 150-199 High Risk 200-499 Very High Risk >=500 Cholesterol Reference Range: Low Risk <200 Borderline 200-239 High Risk >240 HDL Cholesterol Reference Range: Low Risk >=60 High Risk <40 LDL Cholesterol Reference Range: Optimal <100 Near Optimal 100-129 Borderline 130-159 High 160-189 Very High >=190 Target Network Analyst ID - MHMQ05Evxvlvhz ID - SADY71Hrnnubob ID - [id number] [facility] [id number] 05:27:05 Test Item Value Reference Range Interpretation Comments TRIGLYCERIDES (BEAKER) (test code = 172 mg/dL 540) CHOLESTEROL (BEAKER) (test code = 157 mg/dL 631) HDL CHOLESTEROL (BEAKER) (test code 27 mg/dL = 976) LDL CHOLESTEROL CALCULATED (BEAKER) 96 mg/dL (test code = 633) Triglyceride Reference Range: Low Risk <150 Borderline 150-199 High Risk 200- 499 Very High Risk >=500Cholesterol Reference Range: Low Risk <200 Borderline 200-239 High Risk >240HDL Cholesterol Reference Range: Low Risk >=60 High Risk <40LDL Cholesterol Reference Range: Optimal <100 Near Optimal 100-129 Borderline 130-159 High 160-189 Very High >=190 Target Network Analyst ID - [id number] ID - NOOS19Ummonvea ID - [id number] 05:26:48 Test Item Value Reference Range Interpretation Comments MAGNESIUM (BEAKER) (test code = 2.2 mg/dL 1.5-3.0 627) Target Network Analyst ID - UWMW16Tqsyqtso ID - ZYRJ63Yxiixdjn ID - NVVO62Zkwxurhv ID - [id number] Prothrombin time/[id number] 05:10:20 Test Item Value Reference Interpretation Comments [...] valves. Lab Interpretation Normal (test code = 92398-0) [facility] HospitalProthrombin time/[id number] 05:10:20 Test Item Value Reference Interpretation Comments [...] valves. Lab Interpretation Normal (test code = 00368-9) [facility] HospitalProthrombin time/[id number] 05:10:20 Test Item Value Reference Interpretation Comments [...] valves. Lab Interpretation Normal (test code = 47588-5) [facility] HospitalPROTHROMBIN TIME/[id number] 05:10:20 Test Item Value Reference Range Interpretation Comments PROTIME (BEAKER) 11.0 seconds 9.3-12.0 Final Infor mation (test code = 759) (Auto Outp ut) INR (BEAKER) (test 0.99 See_Comment Final Inf ormation code = 370) (Auto Output) [Automated mess age] The system MyGoodPoints generated this result transmitted ref erence range: <=5.90. The reference range was not used to int erpret this result as normal/abnormal . RECOMMENDED COUMADIN/WARFARIN INR THERAPY RANGESSTANDARD DOSE: 2.0 - 3.0 Includes: PROPHYLAXIS for venous thrombosis, systemic embolization; TREATMENT for venous thrombosis and/or pulmonary embolus.HIGH RISK: Target INR is 2.5-3.5 for patients with mechanical heart valves.CBC W/PLT COUNT & AUTO [id number] 04:55:57 Test Item Value Reference Range Interpretation [...] PERCENT (BEAKER) (test code = 2801) POCT-GLUCOSE [id number] 19:32:11 Test Item Value Reference Range Interpretation Comments POC-GLUCOSE METER 296 mg/dL 70-110 H : Notified RN/MD: TESTED (BEAKER) (test code AT [place] [address] [address] = 1538) [facility] [address]: Target Network Analyst/Techni unique ID = [id number] for Asya Estes Osmolality, [id number] 16:45:57 Test Item Value Reference Range Interpretation Comments Osmolality, Ur (test code 785 See_Comment [ Automated message] = 2695-5) The system MyGoodPoints generated this result transmitted ref erence range: 50-1,200 mOsm/kg mOsm/kg . The reference range was not used to int erpret this result as normal/abnormal . Lab Interpretation (test Normal code = 37666-5) [facility] HospitalOsmolality, [id number] 16:45:57 Test Item Value Reference Range Interpretation Comments Osmolality, Ur (test code 785 See_Comment [ Automated message] = 2695-5) The system MyGoodPoints generated this result transmitted ref erence range: 50-1,200 mOsm/kg mOsm/kg . The reference range was not used to int erpret this result as normal/abnormal . Lab Interpretation (test Normal code = 74395-8) [facility] HospitalOsmpledgerlity, [id number] 16:45:57 Test Item Value Reference Range Interpretation Comments Osmolality, Ur (test code 785 See_Comment [ Automated message] = 2695-5) The system MyGoodPoints generated this result transmitted ref erence range: 50-1,200 mOsm/kg mOsm/kg . The reference range was not used to int erpret this result as normal/abnormal . Lab Interpretation (test Normal code = 85524-7) [facility] HospitalOSMOLALITY, [id number] 16:45:57 Test Item Value Reference Range Interpretation Comments OSMOLALITY URINE 785 mOsm/kg See_Comment [Automated message] (BEAKER) (test code = The sy stem which 614) generated this result transmitted ref erence range: 50-1,200 mOsm/kg. The reference range was not used to int erpret this result as normal/abnormal . POCT-GLUCOSE [id number] 16:11:12 Test Item Value Reference Range Interpretation Comments POC-GLUCOSE METER 262 mg/dL 70-110 H : TESTED A T [facility] (BEAKER) (test code [address], = 1538) [facility] [address]: Target Network Analyst/Techni unique ID = [id number] for Benjaminduy er, Kyra C-REACTIVE [id number] 12:51:06 Test Item Value Reference Range Interpretation Comments C-REACTIVE PROTEIN (VIKRAM) (test 1.05 mg/dL 0.00-0.50 H code = 676) Target Network Analyst ID - WWPHTPQL-[id number] 12:46:27 Test Item Value Reference Range Interpretation Comments D-DIMER QUANTITATIVE 0.40 MG/L FEU <0.50 Final Information (VIKRAM) (test code = (Auto Output) 671) REGARDING D-DIMER RESULTS: The 98% NPV (Negative Predictive Value) for DVT/PE exclusion is 0.50 mg/LFEU as suggested by the skin fitter and as approved by the FDA.POCT-GLUCOSE [id number] 11:18:02 Test Item Value Reference Range Interpretation Comments POC-GLUCOSE METER 280 mg/dL 70-110 H : TESTED A T [facility] (VIKRAM) (test code [address], = 1538) [facility] [address]: Target Network Analyst/Techni unique ID = [id number] for Sawy er, Kyra RAD, CHEST, 1 VIEW, NON [id number] 10:20:00Reason for exam:->COVID PneumoniaShould this be performed at the bedside?->Yes [facility] : 1950 Sex: FFINAL REPORT TECHNIQUE: Frontal view of the chest. INDICATION: COVID Pneumonia COMPARISON:None DISCUSSION:Limited evaluation due to portable technique. Lines and hardware: Overlying EKG leads are notedHeart and mediastinum: Within normal limitsLungs and pleura: Peripheral ill-defined interstitial airspace opacities are noted with a perihilar and lower lobe predominance. No large effusion or pneumothorax.Soft tissues and bones: No acute abnormality. IMPRESSION:Bilateral peripheral predominant airspace disease consistent with provided history of Covid-19 pneumonia. Signed: Vini Vo MDReport Verified Date/Time: 06/29/2021 10:20:49 Reading Location: [facility] Radiology Reading Room Urinalysis w/[id number] 10:08:29 Test Item Value Reference Range Interpretation Comments Color, UA (test code = Yellow 5778-6) Clarity, UA (test code Clear = 5767-9) Specific [place], UA >1.030 1.001-1.035 (test code = 5811-5) pH, UA (test code = 5.0 5.0-8.0 5803-2) Protein, UA (test code Trace Negative A = 47861-1) Glucose, UA (test code Negative Negative = 365) Ketones, UA (test code Trace Negative A = 2514-8) Bilirubin, UA (test Negative Negative code = 33693-0) Blood, UA (test code = Moderate Negative A 31941-3) Nitrite, UA (test code Negative Negative = 5802-4) Leukocytes, UA (test Small Negative A code = 5799-2) Urobilinogen, UA (test 0.2 mg/dL 0.2-1.0 code = 70196-3) Bacteria, UA (test code Occasional = 22601-5) Yeast (test code = Moderate 13760-7) RBC, UA (test code = <5 See_Comment [Autom ated message] 799-7) The system MyGoodPoints generated this result transmit los reference range : /HPF. The refer ence range was not u sed to interpret th is result as normal/abnormal . WBC, UA (test code = 10-20 See_Comment [Autom ated message] 67409-3) The system MyGood[employer] generated this result transmit los reference range : /HPF. The refer ence range was not u sed to interpret th is result as normal/abnormal . SQUAMOUS EPITHELIAL 5-10 See_Comment [Automa los message] (test code = 89759-8) The sy stem which generated this result transmit los reference range : /HPF. The refer ence range was not u sed to interpret th is result as normal/abnormal . Specimen Source (test code = 2795) Lab Interpretation Abnormal (test code = 03605-1) [facility] Hospital[facility]inalysis w/Pyqrltdylqe7543-01-10 10:08:29 Test Item Value Reference Range Interpretation Comments Color, UA (test code = Yellow 5778-6) Clarity, UA (test code Clear = 5767-9) Specific [place], UA >1.030 1.001-1.035 (test code = 5811-5) pH, UA (test code = 5.0 5.0-8.0 5803-2) Protein, UA (test code Trace Negative A = 08284-8) Glucose, UA (test code Negative Negative = 365) Ketones, UA (test code Trace Negative A = 2514-8) Bilirubin, UA (test Negative Negative code = 48271-3) Blood, UA (test code = Moderate Negative A 44082-7) Nitrite, UA (test code Negative Negative = 5802-4) Leukocytes, UA (test Small Negative A code = 5799-2) Urobilinogen, UA (test 0.2 mg/dL 0.2-1.0 code = 76869-2) Bacteria, UA (test code Occasional = 29099-7) Yeast (test code = Moderate 48269-8) RBC, UA (test code = <5 See_Comment [Autom ated message] 799-7) The system [employer] generated this result transmit los reference range : /HPF. The refer ence range was not u sed to interpret th is result as normal/abnormal . WBC, UA (test code = 10-20 See_Comment [Autom ated message] 16495-3) The system [employer] generated this result transmit los reference range : /HPF. The refer ence range was not u sed to interpret th is result as normal/abnormal . SQUAMOUS EPITHELIAL 5-10 See_Comment [Automa los message] (test code = 83552-7) The sy stem which generated this result transmit los reference range : /HPF. The refer ence range was not u sed to interpret th is result as normal/abnormal . Specimen Source (test code = 2795) Lab Interpretation Abnormal (test code = 39488-3) [facility][id number] 10:08:29 Test Item Value Reference Range Interpretation Comments Color, UA (test code = Yellow 5778-6) Clarity, UA (test code Clear = 5767-9) Specific [place], UA >1.030 1.001-1.035 (test code = 5811-5) pH, UA (test code = 5.0 5.0-8.0 5803-2) Protein, UA (test code Trace Negative A = 11143-6) Glucose, UA (test code Negative Negative = 365) Ketones, UA (test code Trace Negative A = 2514-8) Bilirubin, UA (test Negative Negative code = 80034-4) Blood, UA (test code = Moderate Negative A 29906-9) Nitrite, UA (test code Negative Negative = 5802-4) Leukocytes, UA (test Small Negative A code = 5799-2) Urobilinogen, UA (test 0.2 mg/dL 0.2-1.0 code = 43163-9) Bacteria, UA (test code Occasional = 99254-1) Yeast (test code = Moderate 03071-0) RBC, UA (test code = <5 See_Comment [Autom ated message] 799-7) The system [employer] generated this result transmit los reference range : /HPF. The refer ence range was not u sed to interpret th is result as normal/abnormal . WBC, UA (test code = 10-20 See_Comment [Autom ated message] 68847-9) The system [employer] generated this result transmit los reference range : /HPF. The refer ence range was not u sed to interpret th is result as normal/abnormal . SQUAMOUS EPITHELIAL 5-10 See_Comment [Automa los message] (test code = 83475-3) The sy stem which generated this result transmit los reference range : /HPF. The refer ence range was not u sed to interpret th is result as normal/abnormal . Specimen Source (test code = 2795) Lab Interpretation Abnormal (test code = 52274-8) [facility] [id number] 10:08:29 Test Item Value Reference Range Interpretation [...] SOURCE(BEAKER) (test code = 2795) Protein, random [id number] 09:23:05 Test Item Value Reference Range Interpretation Comments Protein, Urine (test code 45 mg/dL 0-14 H = 2888-6) LINDY (test code = LINDY) [employer] Analyst ID - DSENSON Lab Interpretation (test Abnormal code = 98515-1) [facility] [id number] 09:23:05 Test Item Value Reference Range Interpretation Comments Protein, Urine (test code 45 mg/dL 0-14 H = 2888-6) LINDY (test code = LINDY) [employer] Analyst ID - DSENSON Lab Interpretation (test Abnormal code = 85182-2) [facility] [id number] 09:23:05 Test Item Value Reference Range Interpretation Comments Protein, Urine (test code 45 mg/dL 0-14 H = 2888-6) LINDY (test code = LINDY) [employer] Analyst ID - DSENSON Lab Interpretation (test Abnormal code = 67746-8) [facility] RANDOM [id number] 09:23:05 Test Item Value Reference Range Interpretation Comments PROTEIN, URINE (BEAKER) (test code = 45 mg/dL 0-14 H 1569) [employer] Analyst ID - Karin, random [id number] 09:22:49 Test Item Value Reference Range Interpretation Comments Creatinine, Ur 145.7 mg/dL (test code = 2161-8) LINDY (test code = Reference Range: No LINDY) NormalsOperator ID - EMPERATRIZ [facility] random [id number] 09:22:49 Test Item Value Reference Range Interpretation Comments Creatinine, Ur 145.7 mg/dL (test code = 2161-8) LINDY (test code = Reference Range: No LINDY) NormalsOperator ID Radha AWAN [facility], random [id number] 09:22:49 Test Item Value Reference Range Interpretation Comments Creatinine, Ur 145.7 mg/dL (test code = 2161-8) LINDY (test code = Reference Range: No LINDY) NormalsOperator ID Radha AWAN [facility], RANDOM [id number] 09:22:49 Test Item Value Reference Range Interpretation Comments CREATININE URINE (BEAKER) (test 145.7 mg/dL code = 375) Reference Range: No NormalsOperator MARISOL Servin, random [id number] 09:18:51 Test Item Value Reference Range Interpretation Comments Sodium Urine (test 35 meq/L code = 2955-3) LINDY (test code = Reference Range: No LINDY) NormalsOperator ID - [facility]RIZ [facility] [id number] 09:18:51 Test Item Value Reference Range Interpretation Comments Sodium Urine (test 35 meq/L code = 2955-3) LINDY (test code = Reference Range: No LINDY) NormalsOperator ID - [facility]ERATRIZ [facility] [id number] 09:18:51 Test Item Value Reference Range Interpretation Comments Sodium Urine (test 35 meq/L code = 2955-3) LINDY (test code = Reference Range: No LINDY) NormalsOperator ID - EMPERATRIZ [facility] Center[facility] RANDOM [id number] 09:18:51 Test Item Value Reference Range Interpretation Comments SODIUM URINE (BEAKER) (test code = 35 meq/L 243) Reference Range: No NormalsOperator ID - DSTOPotassium, random urine 2021-06-29 09:15:34 Test Item Value Reference Range Interpretation Comments Potassium Urine 75.5 meq/L (test code = 2828-2) LINDY (test code = Reference Range: No LINDY) NormalsOperator [facility] [id number] 09:15:34 Test Item Value Reference Range Interpretation Comments Potassium Urine 75.5 meq/L (test code = 2828-2) LINDY (test code = Reference Range: No LINDY) NormalsOperator ID - [facility] Center[facility], random [id number] 09:15:34 Test Item Value Reference Range Interpretation Comments Potassium Urine 75.5 meq/L (test code = 2828-2) LINDY (test code = Reference Range: No LINDY) NormalsOperator ID - [facility] CenterPOTASSIUM, RANDOM [id number] 09:15:34 Test Item Value Reference Range Interpretation Comments POTASSIUM URINE (BEAKER) (test 75.5 meq/L code = 195) Reference Range: No NormalsOperator ID - [facility] [id number] 08:55:08 Test Item Value Reference Range Interpretation [...] S NOT APPLICABLE FOR DIALYSIS PATIEN TS. [employer] Analyst ID - DSENSONOperator ID - DSENSONOperator ID - DSENSONOperator ID - DSENSONOperator ID - DSENSONOperator ID - DSENSONOperator ID - DSENSONOperator ID - DSENSONOperator ID - DSENSONOperator ID - DSENSONOperator ID - DSENSONOperator ID - DSENSONOperator ID - DSENSONOperator ID - DSENSONOperatorID - DSENSONOperator ID - DSENSONOperator ID - DSENSONOperator ID - DSENSONOperator ID - DSENSONOperator ID - DSENSONLIPID [id number] 05:02:00 Test Item Value Reference Range Interpretation Comments TRIGLYCERIDES (BEAKER) 174 mg/dL Speci men slightly (test code = 540) hemolyzed CHOLESTEROL (BEAKER) 164 mg/dL Specime n slightly (test code = 631) hemolyzed HDL CHOLESTEROL (BEAKER) 32 mg/dL (test code = 976) LDL CHOLESTEROL 97 mg/dL CALCULATED (BEAKER) (test code = 633) Triglyceride Reference Range: Low Risk <150 Borderline 150-199 High Risk 200- 499 Very High Risk >=500Cholesterol Reference Range: Low Risk <200 Borderline 200-239 High Risk >240HDL Cholesterol Reference Range: Low Risk >=60 High Risk <40LDL Cholesterol Reference Range: Optimal <100 Near Optimal 100-129 Borderline 130-159 High 160-189 Very High >=190 [employer] Analyst ID - LITOOperator ID - LITOOperator ID - LITOOperator ID - LITOOperator ID - LITOOperator ID - LITOHEPATIC FUNCTION [id number] 04:37:26 Test Item Value Reference Range Interpretation [...] Specimen slightly (test code = 347) hemolyzed [employer] Analyst ID - LITOOperator ID - LITOOperator ID - LITOOperator ID - LITOOperator ID - LITOOperator ID - LITOOperator ID - LITOPROTHROMBIN [id number] 04:23:54 Test Item Value Reference Range Interpretation Comments PROTIME (BEAKER) 11.4 seconds 9.3-12.0 Final Infor mation (test code = 759) (Auto Outp ut) INR (BEAKER) (test 1.03 See_Comment Final Inf ormation code = 370) (Auto Output) [Automated mess age] The system [employer] generated this result transmitted ref erence range: <=5.90. The reference range was not used to int erpret this result as normal/abnormal . RECOMMENDED COUMADIN/WARFARIN INR THERAPY RANGESSTANDARD DOSE: 2.0 - 3.0 Includes: PROPHYLAXIS for venous thrombosis, systemic embolization; TREATMENT for venous thrombosis and/or pulmonary embolus.HIGH RISK: Target INR is 2.5-3.5 for patients with mechanical heart valves.CBC W/PLT COUNT & AUTO [id number] 04:09:57 Test Item Value Reference Range Interpretation [...] 0-0 H PERCENT (BEAKER) (test code = 8941)
--- NOTE | 2022-11-06 09:20 | RAD REPORT ---
EXAM DESCRIPTION: [place] Single View11/06/2022 9:12 am CLINICAL HISTORY: Shortness of breath COMPARISON: 2020 FINDINGS: Moderate bilateral pulmonary opacities. Heart is mildly enlarged IMPRESSION: Moderate bilateral pulmonary opacities probably represent pulmonary edema superimposed o brian pulmonary fibrosis
[2022-11-06 09:41] LABS: Hematocrit 36.5 % (36.0-45.0); Lymphocytes % 15.1 % (15.3-44.8); MCV 97.1 fL (80-100); MPV 9.5 fL (7.6-11.3); RBC Red Blood Cell Count 3.75 M/uL (3.86-4.86)
[2022-11-06 09:43] LABS: SARS-COV-2 RT PCR NEGATIVE (NEGATIVE)
[2022-11-06] MEDS ORDERED: FUROSEMIDE 40 MG/4 ML VIAL ONE ×2 (10:12→21:14)
[2022-11-06] MEDS ORDERED: LEVALBUTEROL 1.25 MG/3 ML NEB ONE (10:12)
[2022-11-06 10:57] LABS: Urine Blood 1+ (Negative); Urine Glucose Negative (Negative); Urine Protein 2+ (Negative); Urine Specific Gravity >=1.030 (1.005-1.030); Urine pH 5.5 (5.0-7.0)
[2022-11-06 12:50] LABS: Protime INR 1.42
[2022-11-06 13:03] LABS: Bilirubin Direct 0.3 mg/dL (0-0.2); Potassium 3.6 mmol/L (3.5-5.1)
[2022-11-06 13:06] LABS: Troponin High Sensitivity 131.1 pg/mL (<58.9)
--- NOTE | 2022-11-06 13:14 | ER ---
Nurse's Notes [facility] Name: Marry Chowdary Age: 72 yrs Sex: Female : 1950 Arrival Date: 11/06/2022 Time: 07:57 Bed 26 Private MD: Kina Barajas Diagnosis: Acute on chronic combined systolic (congestive) and diastolic (congestive) heart failure Presentation: 11/06 08:12 Chief complaint: Patient states: SOB with exertion x several months. Coronavirus jl7 screen: Vaccine status: Patient reports receiving the 2nd dose of the covid vaccine. shortness of breath, Client presents with at least one sign or symptom that may indicate coronavirus-19. Ebola Screen: No symptoms or risks identified at this time. Initial Sepsis Screen: Does the patient meet any 2 criteria? No. Patient's initial sepsis screen is negative. Does the patient have a suspected source of infection? No. Patient's initial sepsis screen is negative. Risk Assessment: Do you want to hurt yourself or someone else? Patient reports no desire to harm self or others. Onset of symptoms is unknown. 08:12 Method Of Arrival: Wheelchair jl7 08:12 Acuity: MOSES 3 jl7 Triage Assessment: 08:14 General: Appears in no apparent distress. uncomfortable, Behavior is calm, cooperative, jl7 appropriate for age. Pain: Denies pain. Respiratory: Reports shortness of breath on exertion Onset: The symptoms/episode began/occurred months ago, the patient has mild shortness of breath. Historical: - Allergies: 08:14 No Known Allergies; jl7 - Home Meds: 08:14 metoprolol succinate 100 mg oral CSpX 1 cap BID [Active]; furosemide 20 mg Oral tab 1 jl7 tab once daily [Active]; Eliquis 5 mg oral tab 1 tab 2 times per day [Active]; amiodarone 200 mg oral tab .5 tab once daily [Active]; Entresto 97-103 mg oral tab 1 tab 2 times per day [Active]; - PMHx: 08:14 Arthritis; Hyperlipidemia; Hypertension; Congestive heart failure; Atrial fibrillation; jl7 - PSHx: 08:14 Cholecystectomy; hysterectomy; jl7 - Immunization history:: Client reports receiving the 2nd dose of the Covid vaccine. - Social history:: Smoking status: Patient denies any tobacco usage or history of. Screenin:29 [facility] ED Fall Risk Assessment (Adult) History of falling in the last 3 months, jh5 including since admission No falls in past 3 months (0 pts) Confusion or Disorientation No (0 pts) Intoxicated or Sedated No (0 pts) Impaired Gait No (0 pts) Mobility Assist Device Used No (0 pt) Altered Elimination No (0 pt) Score/Fall Risk Level 0 - 2 = Low Risk. Abuse screen: Denies threats or abuse. Denies injuries from another. Nutritional screening: No deficits noted. Tuberculosis screening: No symptoms or risk factors identified. Assessment: 09:46 Reassessment: spoke with lab on phone at this time; will send someone down to collect jh5 blood on pt. 12:29 Reassessment: inside lab here at this time to collect. Outside lab has rejected samples jh5 x3 from ER. 12:30 Cardiovascular: Rhythm is regular. Respiratory: Airway is patent Respiratory effort is jh5 even, unlabored. Vital Signs: 08:12 BP 166 / 98; Pulse 72; Resp 15; Temp 98.8; Pulse Ox 98% on R/A; Weight 74.39 kg; Height jl7 5 ft. 7 in. (170.18 cm); Pain 0/10; 09:49 Pulse 67; Resp 20; Pulse Ox 100% ; jh5 11:05 BP 188 / 68; Pulse 78; Resp 16; Pulse Ox 96% ; jh5 12:06 BP 172 / 64; Pulse 76; Resp 18; Pulse Ox 96% ; jh5 08:12 Body Mass Index 25.69 (74.39 kg, 170.18 cm) jl7 ED Course: 07:57 Patient arrived in ED. am2 07:58 Kina Barajas DO is Private Physician. am2 08:07 Alton Munguia PA is PHCP. jmm 08:07 Vivek Monroy MD is Attending Physician. jmm 08:14 Triage completed. jl7 08:14 Arm band placed on right wrist. Patient placed in an exam room, on a stretcher, on jl7 answering service agent, on pulse oximetry. 08:41 Lien Cunningham, DESTIN is Primary Nurse. ph 08:51 COVID-19/FLU A+B Sent. bc6 08:51 Lactate w/ 2H reflex if indic. Sent. bc6 08:51 Basic Metabolic Panel Sent. bc6 08:51 CBC with Diff Sent. 6 08:51 LFT's Sent. 6 08:51 Magnesium Sent. 6 08:52 NT PRO-BNP Sent. [facility] 08:52 PT-INR Sent. 6 08:52 Troponin HS Sent. 6 08:52 Initial lab(s) drawn, by ma, sent to lab. EKG done, by ED staff, COVID swab sent to [facility] lab. Inserted saline lock: 20 gauge in right antecubital area, using aseptic technique. 09:14 XRAY Chest (1 view) In Process Unspecified. EDDE 12:29 Patient has correct armband on for positive identification. Call light in reach. Side [facility] rails up X2. 12:29 No provider procedures requiring assistance completed. [facility] 13:13 Bell Izquierdo MD is Hospitalizing Provider. [facility] 19:11 Primary Nurse role handed off by Lien Cunningham RN 2 11/07 07:06 Dionicio Schrader, RN is Primary Nurse. bp Administered Medications: 11/06 10:20 Drug: Lasix (furosemide) 40 mg Route: IVP; Site: right antecubital; [facility] 10:20 Drug: Xopenex (levalbuterol) (3) 1.25 mg Route: Inhalation; [facility] Medication: 12:30 VIS not applicable for this client. [facility] Outcome: 13:14 Decision to Hospitalize by Provider. [facility] 11/07 17:26 Patient left the ED. kj1 Signatures: Dispatcher [employer] EDMS Alton Munguia PA PA [facility] Lien Cunningham, RN RN Saad Choi, RN RN jl7 Aure Petersen 2 Dionicio Schrader, RN RN bp Love Teresa 2 [place] Gabriel kj1 Fina Cuadra, RN RN jh5 Jacqueline Sands [facility]
--- NOTE | 2022-11-06 13:14 | EDPHYS ---
[facility] Documentation [facility] Name: Marry Chowdary Age: 72 yrs Sex: Female : 1950 Arrival Date: 11/06/2022 Time: 07:57 Bed 26 Private MD: Kina Barajas ED Physician Vivek Monroy HPI: 11/06 08:15 This 72 yrs old Black Female presents to ER via Wheelchair with complaints of Shortness jmm Of Breath, medication complaint. 08:15 The patient has shortness of breath with light activity. Onset: The symptoms/episode jmm began/occurred gradually. 08:15 Duration: The symptoms are continuous, and are steadily getting worse. jmm 08:15 The patient's shortness of breath is aggravated by exertion, light activity. Associated jmm signs and symptoms: Pertinent negatives: fever. This is a 72-year-old female with history of arthritis, hyperlipidemia, hypertension, CHF the presents emerged part with complaints of progressively worsening shortness of breath over the past few months. Patient was gone to the point now when she is trying to get her prescriptions that she had to rest in her car for 30 minutes after walking from the pharmacy. Denies chest pain. Historical: - Allergies: 08:14 No Known Allergies; jl7 - Home Meds: 08:14 metoprolol succinate 100 mg oral CSpX 1 cap BID [Active]; furosemide 20 mg Oral tab 1 jl7 tab once daily [Active]; Eliquis 5 mg oral tab 1 tab 2 times per day [Active]; amiodarone 200 mg oral tab .5 tab once daily [Active]; Entresto 97-103 mg oral tab 1 tab 2 times per day [Active]; - PMHx: 08:14 Arthritis; Hyperlipidemia; Hypertension; Congestive heart failure; Atrial fibrillation; jl7 - PSHx: 08:14 Cholecystectomy; hysterectomy; jl7 - Immunization history:: Client reports receiving the 2nd dose of the Covid vaccine. - Social history:: Smoking status: Patient denies any tobacco usage or history of. ROS: 08:15 Constitutional: Negative for fever, chills, and weight loss, Cardiovascular: Negative jmm for chest pain, palpitations, and edema. 08:15 Respiratory: Positive for shortness of breath. 08:15 All other systems are negative. Exam: 08:15 Constitutional: This is a well developed, well nourished patient who is awake, alert, jmm and in no acute distress. Head/Face: atraumatic. Eyes: EOMI, no conjunctival erythema appreciated ENT: Moist Mucus Membranes Neck: Trachea midline, Supple Chest/axilla: Normal chest wall appearance and motion. Cardiovascular: Regular rate and rhythm. No edema appreciated Respiratory: Normal respirations, no respiratory distress appreciated Abdomen/GI: Non distended Back: Normal ROM Skin: General appearance color normal 08:15 Musculoskeletal/extremity: ROM: intact in all extremities. 08:15 Skin: Appearance: Color: normal in color. 08:15 Neuro: Orientation: is normal, Mentation: is normal, Memory: is normal. 08:15 Psych: Behavior/mood is pleasant, cooperative. 15:24 ECG was reviewed by the Attending Physician. [facility] Vital Signs: 08:12 BP 166 / 98; Pulse 72; Resp 15; Temp 98.8; Pulse Ox 98% on R/A; Weight 74.39 kg; Height 7 5 ft. 7 in. (170.18 cm); Pain 0/10; 09:49 Pulse 67; Resp 20; Pulse Ox 100% ; 5 11:05 BP 188 / 68; Pulse 78; Resp 16; Pulse Ox 96% ; jh5 12:06 BP 172 / 64; Pulse 76; Resp 18; Pulse Ox 96% ; jh5 08:12 Body Mass Index 25.69 (74.39 kg, 170.18 cm) 7 MDM: 08:18 Patient medically screened. [facility] 13:12 Data reviewed: vital signs, nurses notes. Consideration of Admission/Observation [facility] Patient was admitted/placed on observation. Management of patient was discussed with the following: Tibmo Delacruz. I considered the following discharge prescriptions or medication management in the emergency department Medications were administered in the Emergency Department. See MAR. Counseling: I had a detailed discussion with the patient and/or guardian regarding: the historical points, exam findings, and any diagnostic results supporting the discharge/admit diagnosis, lab results, radiology results, the need for further work-up and treatment in the hospital. 11/06 08:14 Order name: Basic Metabolic Panel; Complete Time: 13:09 [facility] 11/06 08:14 Order name: CBC with Diff; Complete Time: 09:45 [facility] 11/06 08:14 Order name: LFT's; Complete Time: 13:09 [facility] 11/06 08:14 Order name: Magnesium; Complete Time: 13:09 [facility] 11/06 08:14 Order name: NT PRO-BNP; Complete Time: 13:09 [facility] 11/06 08:14 Order name: PT-INR; Complete Time: 13:09 [facility] 11/06 08:14 Order name: Troponin HS; Complete Time: 13:09 [facility] 11/06 08:14 Order name: COVID-19/FLU A+B; Complete Time: 09:45 [facility] 11/06 08:14 Order name: Lactate w/ 2H reflex if indic.; Complete Time: 13:09 [facility] 11/06 10:57 Order name: Urine Dipstick-Ancillary; Complete Time: 11:31 [facility] 11/06 15:42 Order name: Magnesium; Complete Time: 17:13 [facility] 11/06 15:42 Order name: Phosphorus; Complete Time: 17:13 [facility] 11/06 15:42 Order name: Urinalysis [facility] 11/06 15:42 Order name: Basic Metabolic Panel [facility] 11/06 08:14 Order name: XRAY Chest (1 view); Complete Time: 09:23 [facility] 11/06 08:14 Order name: EKG; Complete Time: 08:15 [facility] 11/06 08:14 Order name: Cardiac monitoring; Complete Time: 08:52 [facility] 11/06 08:14 Order name: EKG - Nurse/Tech; Complete Time: 08:52 [facility] 11/06 08:14 Order name: IV Saline Lock; Complete Time: 08:52 [facility] 11/06 08:14 Order name: Labs collected and sent; Complete Time: 08:52 [facility] 11/06 15:28 Order name: Echo with Doppler DC 11/06 15:42 Order name: Basic Metabolic Panel; Complete Time: 07:13 [facility] 11/06 15:42 Order name: CBC with Automated Diff [facility] 11/06 15:42 Order name: CBC with Automated Diff; Complete Time: 07:13 [facility] 11/06 15:42 Order name: NT PRO-BNP [facility] 11/06 15:42 Order name: NT PRO-BNP; Complete Time: 07:13 [facility] 11/06 19:32 Order name: Troponin High Sensitivity; Complete Time: 19:37 EDDC 11/07 00:58 Order name: Troponin High Sensitivity; Complete Time: 07:13 [facility] 11/06 08:14 Order name: O2 Per Protocol; Complete Time: 10:59 [facility] 11/06 08:14 Order name: O2 Sat Monitoring; Complete Time: 10:59 [facility] 11/06 08:15 Order name: Urine Dipstick-Ancillary (obtain specimen); Complete Time: 10:59 [facility] 11/06 09:07 Order name: Labs - recollect needed: recollect green, blue and lavender tube; Complete bd Time: 09:35 11/06 09:08 Order name: Labs - recollect needed: recollect lactate; Complete Time: 09:35 bd EC:24 Rate is 75 beats/min. Rhythm is regular. [place] interval is normal. QRS interval is normal. jmm QT interval is normal. No ST changes noted. Reviewed by me. Administered Medications: 10:20 Drug: Lasix (furosemide) 40 mg Route: IVP; Site: right antecubital; [facility] 10:20 Drug: Xopenex (levalbuterol) (3) 1.25 mg Route: Inhalation; [facility] Disposition: 11/08 06:57 Co-signature as Attending Physician, Vivek Monroy MD I reviewed the patient's care rt provided by the Advanced Practice Provider and agree with the diagnosis and treatment plan. Disposition Summary: 11/06/22 13:14 Hospitalization Ordered Hospitalization Status: Observation [facility] Provider: Bell Izquierdo Condition: Stable [facility] Problem: an acute exacerbation jm Symptoms: have improved [facility] Bed/Room Type: Standard [facility] Location: Telemetry/MedSurg (observation)(11/07/22 14:38) kj1 Room Assignment: 408(11/07/22 14:38) kj1 Diagnosis - Acute on chronic combined systolic (congestive) and diastolic (congestive) heart [facility] failure Forms: - Medication Reconciliation Form jmm - SBAR form jm Signatures: Dispatcher [employer] EDMS Xenia Martin Joel, PA PA jmm Leal, Jahala, RN RN jl7 [place] Gabriel kj1 Fina Cuadra RN RN jh5 Alona Mae RN RN 4 Vivek Monroy MD MD rt Corrections: (The following items were deleted from the chart) 11/06 15:07 13:14 Telemetry/MedSurg (observation) [facility] 15:07 13:14 [facility] 11/07 14:38 11/06 15:07 [facility] ll4 kj1 11/07 14:38 11/06 15:07 [facility] kj1
[2022-11-06] MEDS ORDERED: ACETAMINOPHEN 325 MG TABLET PO PRN (15:24)
[2022-11-06] MEDS ORDERED: HYDROCODONE/APAP 5/325 MG TAB PO PRN (15:24)
[2022-11-06] MEDS ORDERED: ONDANSETRON 4 MG/2 ML VIAL IV PRN (15:39)
[2022-11-06] MEDS ORDERED: HYDRALAZINE HCL 20 MG/ML VIAL IV PRN (15:43)
--- NOTE | 2022-11-06 15:45 | P.HP ---
Certification for Inpatient Patient admitted to: Observation With expected LOS: <2 Midnights (Patient) Patient will require the following post-hospital care: None Practitioner: I am a practitioner with admitting privileges, knowledge of patient current condition, hospital course, and medical plan of care. Services: Services provided to patient in accordance with Admission requirements found in Title 42 Section 412.3 of the Code of Federal Regulations Patient History Date of Service: 11/06/22 Reason for admission: SOB History of Present Illness: Patient is a 72-year-old female with a past medical history significant for osteoarthritis, hyperlipidemia, hypertension, CHF, A. fib who presents with complaint of shortness of breath that has been ongoing for a while. Patient is a poor historian and unable to provide accurate history. Patient reported associated signs and symptoms of cough and bilateral lower extremity edema. Patient reported that shortness of breath is aggravated with exertion and relieved by nothing. Patient denies any other signs and symptoms. Patient decided to present to the hospital due to worsening symptoms. Allergies No Known Allergies Allergy (Verified 04/13/15 10:06) Home Medications: Amiodarone HCl [Pacerone] 200 mg PO BID #60 tablet 02/01/22 Apixaban [Eliquis] 1 tab PO BID 02/01/22 Lisinopril [Zestril] 1 tab PO DAILY 02/01/22 Metoprolol Tartrate [Lopressor*] 25 mg PO BID 6AM 6PM #60 tab 02/02/22 - Past Medical/Surgical History Diabetic: No -: HTN -: HLD -: Osteoarthritis. -: COVID -: GI bleed Past Surgical History: Reviewed- Non-Contributory - Family History Family History: Reviewed- Non-Contributory - Social History Smoking Status: Never smoker Alcohol use: No CD- Drugs: No Caffeine use: No Place of Residence: Home Review of Systems General: Unremarkable Eyes: Unremarkable ENT: Unremarkable Respiratory: Cough, Shortness of Breath, SOB with Excertion Cardiovascular: Edema Gastrointestinal: Unremarkable Genitourinary: Unremarkable Musculoskeletal: Unremarkable Integumentary: Unremarkable Neurological: Unremarkable Lymphatics: Unremarkable Physical Examination - Physical Exam General: Alert, In no apparent distress, Oriented x3, Cooperative HEENT: Atraumatic, PERRLA, Mucous membr. moist/pink, EOMI, Sclerae nonicteric Neck: Supple, 2+ carotid pulse no bruit, No LAD, Without JVD or thyroid abnormality Respiratory: Diminished Cardiovascular: No murmurs, Edema, Irregular heart rate/rhythm Capillary refill: <2 Seconds Gastrointestinal: Normal bowel sounds, Soft and benign Musculoskeletal: No clubbing, Swelling, Tenderness Integumentary: No rashes, No breakdown, No significant lesion Neurological: Normal speech, Normal tone, Normal affect Lymphatics: No axilla or inguinal lymphadenopathy - Studies Laboratory Data (last 24 hrs) 11/06/22 12:35: PT 15.6 H, INR 1.42 11/06/22 12:35: Sodium 144, Potassium 3.6, BUN 20 H, Creatinine 1.35 H, Glucose 115 H, Magnesium 2.0, Total Bilirubin 1.0, AST 17, ALT 23, Alkaline Phosphatase 121 H 11/06/22 09:30: WBC 6.40, Hgb 11.8 L, Hct 36.5, Plt Count 208 Assessment and Plan - Plan --Acute on chronic systolic CHF exacerbation. Patient placed on Lasix. Echocardiogram pending to assess LV\valvular function and wall motion. Cardiology consulted. Daily weight and strict I/O. We will await further recommendation from farmer general. --Elevated troponin level. Likely secondary to demand ischemia. We will continue to trend troponin levels. Telemetry to monitor for any significant arrhythmia. Further management per farmer [employer]. --Atrial fibrillation. Continue amiodarone, metoprolol and Lovenox subQ. --Hypertension. Poorly controlled. Continue home medications and hydralazine as needed. --Hyperlipidemia. Continue statin. --Anemia of chronic disease. H&H stable. We will continue to monitor hemoglobin and transfuse if less than 7.0. --CKD 3B. Stable. We will continue to monitor renal functions. --Osteoarthritis. We will monitor pain with current pain medication regimen. --DVT prophylaxis with Lovenox subQ. Discharge Plan: Home Plan to discharge in: 48 Hours - Advance Directives Does patient have a Living Will: Yes Does patient have a Durable POA for Healthcare: No - Code Status/Comfort Care Code Status Assessed: Yes Physician Review: Patient Assessed, Agree with Above Assessment and Plan Critical Care: No
[2022-11-06 16:07] VITALS: BMI 25.3
[2022-11-06 17:12] LABS: Phosphorus 3.3 mg/dL (2.5-4.9)
[2022-11-06] MEDS: AMIODARONE HCL 200 MG TAB PO SCH (21:00)
[2022-11-06] MEDS: ATORVASTATIN 40 MG TAB PO SCH (21:00)
[2022-11-06] MEDS: METOPROLOL TAR 25 MG TAB PO SCH (21:13)
[2022-11-06] MEDS: FUROSEMIDE 40 MG/4 ML VIAL IV SCH (21:13)
[2022-11-06] MEDS ORDERED: METOPROLOL TAR 25 MG TAB ONE (21:13)
[2022-11-06] MEDS: ENOXAPARIN 40 MG/0.4 ML SQ SCH (21:13)
[2022-11-06] MEDS ORDERED: AMIODARONE HCL 200 MG TAB ONE (21:14)
[2022-11-06] MEDS ORDERED: ATORVASTATIN 20 MG TAB ONE (21:15)
[2022-11-06] MEDS ORDERED: ENOXAPARIN 40 MG/0.4 ML SQ ONE (21:15)
[2022-11-07 04:06] LABS: Absolute Lymphocytes (CBC) 1.5 K/uL (0.7-4.9); Hematocrit 31.2 % (36.0-45.0); Lymphocytes % 23.2 % (15.3-44.8); MCV 96.5 fL (80-100); RBC Red Blood Cell Count 3.23 M/uL (3.86-4.86)
[2022-11-07] MEDS: METOPROLOL TAR 25 MG TAB PO SCH ×2 (06:00→17:48)
[2022-11-07] MEDS ORDERED: POTASSIUM 25 MEQ EFFERV TAB PO ONE (06:13)
[2022-11-07] MEDS ORDERED: METOPROLOL TAR 25 MG TAB ONE (06:19)
[2022-11-07] MEDS ORDERED: POTASSIUM 25 MEQ EFFERV TAB ONE (06:19)
[2022-11-07] MEDS: ENOXAPARIN 40 MG/0.4 ML SQ SCH (09:00)
[2022-11-07] MEDS: FUROSEMIDE 40 MG/4 ML VIAL IV SCH ×2 (09:00→17:48)
[2022-11-07] MEDS ORDERED: APIXABAN 5 MG TABLET PO SCH (09:00)
[2022-11-07] MEDS: AMIODARONE HCL 200 MG TAB PO SCH ×2 (09:00→20:13)
[2022-11-07] MEDS: ASPIRIN 81 MG CHEWABLE TABLET PO SCH (09:00)
[2022-11-07] MEDS ORDERED: AMIODARONE HCL 200 MG TAB ONE (09:12)
[2022-11-07] MEDS ORDERED: ASPIRIN EC 81 MG TAB PO ONE (09:12)
[2022-11-07] MEDS ORDERED: FUROSEMIDE 40 MG/4 ML VIAL ONE (09:12)
[2022-11-07] MEDS ORDERED: ENOXAPARIN 40 MG/0.4 ML SQ ONE (09:13)
--- NOTE | 2022-11-07 18:14 | CON ---
Date of Consultation: 11/07/2022 Reason For Consultation: Shortness of breath. History Of Present Illness: This is a -[id number]-owf female, known history of severe systolic h eart failure, atrial fibrillation, hypertension, presented with shortness of breath, lower extremity edema, and orthopnea. No nausea, vomiting, diarrhea. No chest pain. No other complaints. Past Medical History: As outlined above in the HPI. Medications: Refer to reconciliation sheet for detailed list. Allergies: NO KNOWN DRUG ALLERGIES. Family History: No premature coronary artery disease or cancer. Social History: She does not smoke or drink. Does not use drugs. Review of Systems: All systems reviewed and they were negative except what mentioned in HPI. Physical Examination: Vital Signs: Temperature is 97.4, pulse 56, breathing at 16, blood pressure 126/61, saturating 98% o n room air. General: Pleasant elderly female, in no apparent distress. Head and Neck: Pupils are equal, reactive to light. Intact eye movements. No JVD. No cervical lym phadenopathy. Neck is supple. Thyroid is not enlarged. Lungs: Clear to auscultation bilaterally. No rhonchi, wheezing, or crackles. No accessory muscle u se. Heart: Regular rate and rhythm. No extra sounds. Abdomen: Soft, nontender. Bowel sounds positive. No organomegaly. No masses or hernia. No rigidi ty or rebound. Extremities: No clubbing or cyanosis. Positive edema. Skin: No rash. Neurologic: Alert, awake. No acute focal deficits appreciated. Investigations: BUN 20, creatinine 1.24. Troponin is peaked at 182. Assessment And Recommendations: 1.Acute on chronic systolic heart failure exacerbation. This is nonischemic cardiomyopathy. The damaris salazar had a normal left heart catheterization in the recent past. Agree with Lasix and to resume Ent tr and beta-saeed, low-salt diet and daily body weight. 2.Elevated troponin. This is demand ischemia. She had normal coronary arteries recently. 3.Atrial fibrillation. She is in sinus. Continue amiodarone, beta-saeed, and Eliquis. SR/MODL Voice ID: [id number] Report ID: [id number]
[2022-11-07] MEDS: ATORVASTATIN 40 MG TAB PO SCH (20:13)
[2022-11-07] MEDS: SACUBITRIL/VALSARTAN 49/51 MG TAB PO SCH (20:13)
[2022-11-08] MEDS: METOPROLOL TAR 25 MG TAB PO SCH (05:46)
[2022-11-08 06:47] LABS: Potassium 3.4 mmol/L (3.5-5.1)
[2022-11-08] MEDS: SACUBITRIL/VALSARTAN 49/51 MG TAB PO SCH (08:37)
[2022-11-08] MEDS: AMIODARONE HCL 200 MG TAB PO SCH (08:37)
[2022-11-08] MEDS: FUROSEMIDE 40 MG/4 ML VIAL IV SCH (08:37)
[2022-11-08] MEDS: ENOXAPARIN 40 MG/0.4 ML SQ SCH (08:37)
[2022-11-08] MEDS: ASPIRIN 81 MG CHEWABLE TABLET PO SCH (08:37)
[2022-11-08] MEDS ORDERED: POTASSIUM CL SA 10 MEQ TAB PO ONE (09:00)
[2022-11-08 09:25] VITALS: O2SAT 100
[2022-11-08 09:29] VITALS: BP 133/68; TEMP 97.6
--- NOTE | 2022-11-08 13:23 | EKG ---
Test Date: 2022-11-06 Test Time: 08:25:00 Upsetting Machine Operator: AYAH MEASUREMENT RESULTS: Intervals: Rate: 75 AL: 170 QRSD: 100 QT: 434 QTc: 484 [place]: P: 63 AL: 170 QRS: 65 T: 263 INTERPRETIVE STATEMENTS: Normal sinus rhythm ST & T wave abnormality, consider inferolateral ischemia Prolonged QT Abnormal ECG Compared to ECG 01/31/2022 13:06:01 ST (T wave) deviation now present Possible ischemia now present Prolonged QT interval now present Sinus tachycardia no longer present Atrial premature complex(es) no longer present T-wave abnormality no longer present Electronically Signed On 11-08-22 13:17:49 BACK SHOE WORKER by Alejandro Jose
--- NOTE | 2022-11-08 18:10 | PN ---
Date of Progress Note: 11/08/2022 Subjective: Seen by bedside, is back to her baseline. Does not have any chest pain, shortness of br eath or cough. No nausea, vomiting, diarrhea. All other systems reviewed and they were negative. Physical Examination: Vital Signs: Reviewed. Head and Neck: Pupils are equal, reactive to light. Intact eye movements. No JVD. No cervical lym phadenopathy. Neck is supple. Thyroid is not enlarged. Lungs: Clear to auscultation bilaterally. No rhonchi, wheezing, or crackles. No accessory muscle u se. Heart: Regular rate and rhythm. No extra sounds. Abdomen: Soft, nontender. Bowel sounds positive. No organomegaly. No masses or hernia. No rigidi ty or rebound. Extremities: No edema, clubbing, or cyanosis. Intact pulses. Skin: No rash. Neurologic: Alert, awake, oriented x3. No acute focal deficits appreciated. Investigations: BUN is 22, creatinine 1.28, and hemoglobin is 10.2. Assessment And Recommendations: 1.Acute on chronic systolic heart failure exacerbation. She is euvolemic today. Switch to oral Las ix and discharge and follow up with me in the office in 1 week. 2.Atrial fibrillation. She is in sinus. Continue amiodarone, beta-saeed and the Eliquis. SR/MODL Voice ID: [id number] Report ID: [id number]
== END 2022-11-08 10:58 | disposition home health service (06) | DRG 291 ==
LOC: ER 07:56 → ERHOLD 15:21 → 4TH 11-07 15:56
PROVIDERS: ADMIT Hospitalist; ATTEND Hospitalist
DX: I13.0 Hypertensive heart and chronic kidney disease with heart failure and stage 1 through stage 4 chronic kidney disease, or unspecified chronic kidney disease (principal); I50.23 Acute on chronic systolic (congestive) heart failure; I24.8 Other forms of acute ischemic heart disease; N18.32 Chronic kidney disease, stage 3b; D63.1 Anemia in chronic kidney disease; E78.5 Hyperlipidemia, unspecified; I48.91 Unspecified atrial fibrillation; I42.8 Other cardiomyopathies; M19.90 Unspecified osteoarthritis, unspecified site; Z86.16 Personal history of COVID-19; Z79.01 Long term (current) use of anticoagulants; Z90.49 Acquired absence of other specified parts of digestive tract; Z79.899 Other long term (current) drug therapy; Z90.710 Acquired absence of both cervix and uterus; Z20.822 Contact with and (suspected) exposure to COVID-19
CPT/HCPCS: 0240U; 36415; 71045; 80048; 80076; 81003; 83605; 83735; 83880; 84100; 84484; 85025; 85610; 93005; 96374; 99284; J1650; J1940; J7614

== ENCOUNTER 2023-04-10 10:01 | Observation (INO) | payer OTHER ==
--- OUTSIDE RECORDS SUMMARY | 2023-04-10 10:16 | XMS REPORT | Continuity of Care Document ---
:1950 Author Organization [facility] t Address [address] [facility] [address] [place] [address] Care Team Providers Name Role Phone JAMES PEREZ Primary Care Physician Unavailable JAMES PEREZ Attending Clinician Unavailable Provider, Generic External Data Attending Clinician Unavailsheron Palomo MD, Ming Attending Clinician James Perez MD Attending Clinician Chris FRANK, James Dawkins Attending Clinician JAMES PEREZ Admitting Clinician Unavailable Payers Payer Name Policy Type Policy Number Effective Date Expiration Date [facility] [id number] 2021 00:00:00 Problems Condition Condition Condition Status Onset Resolution Last Treating Co mments Source Name Details Category Date Date Treatment Clinician Date Chronic Chronic Disease Active Last Methodi systolic systolic 5-[address] heart heart 00:00: t & Plan: Hospita failure failure Formattin l g of this note might be different from the original. Symptoms noted; will change potassium to spironola ctone and continue metoprolo l, entresto and lasix Chronic Chronic Disease Active Last Methodi atrial atrial 5-[address] fibrillati fibrillati 00:00: t & Plan: Hospita on on Formattin l g of this note might be different from the original. Rates good; on eliquis Essential Essential Disease Active Last Met hodi hypertensi hypertensi 4-[address] on, benign on, benign 00:00: t & Plan: Hospita 00 Formattin l g of this note might be different from the original. BPs noted; should improve with addition of spironola ctone Cardiac Cardiac Disease Active Last Methodi disease disease 4-[address] 00:00: t & Plan: Hospita 00 Formattin l g of this note might be different from the original. Her medical regimen would suggest systolic (or diastolic failure) along with atrial fibrillat ion; will obtain prior records from the hospital and her previous cardiolog ist Pneumonia Pneumonia Disease Active [facility] COVID[facility] COVID-19 [facility]: Medica l virus virus 00 Center Allergies, Adverse Reactions, Alerts Allergy Allergy Status Severity Reaction(s) Onset Inactive Treating Comm ents Source Name Type Date Date Clinician NO KNOWN Allergy Active [facility] Social History Social Habit Start Date Stop Date Quantity Comments Source [facility] Comment [facility] Alcohol Std Drinks [facility] History [facility] Alcohol Binge [facility] Alcohol intake 2021-06-29 2021-06-[address] 00:[facility] 00:00:00 non-drinker Medical Cente r (finding) History SDOH 2021-06-29 2021-06-[address] [facility] Alcohol Frequency 00:00:00 00:00:00 Medical Center Sex Assigned At [address] [facility] 00:00:00 00:00:00 Medical Center Smoking Status Start Date Stop Date Source Tobacco smoking consumption unknown [facility] Never smoker [facility] Medications Ordered Filled Start Stop Current Ordering Indication Dosage Frequency Signature Comments Components Source Medication Medication Date Date Medication? Clinician (SIG) Name Name furosemide No 40mg QD Take 1 Meth emerita (LASIX) 40 5-16 05-16 tablet (40 st mg tablet 10:29: 00:00 mg total) Ho spita 04 :00 by mouth l daily. potassium 2022-0 2022- No 10meq QD Take 1 Meth emerita chloride 5-16 05-16 tablet (10 st (KLOR-CON) 10:27: 00:00 mEq total) Hospita 10 MEQ CR 54 :00 by mouth l tablet daily. apixaban 2022-0 Yes 5mg Q.5D Take 1 Methodi (ELIQUIS) 5 5-16 tablet (5 st mg tablet 09:36: mg total) Hos barb 40 by mouth 2 l (two) times a day. sacubitriL- 0 Yes 1{tbl} Q.5D Take 1 Me thodi valsartan 5-[address] (Entresto) 09:36: mouth 2 Hosp heidi 97-103 mg 40 (two) l tablet per times a tablet day. metoprolol 0 Yes 100mg Q.5D Take 1 Meth emerita tartrate 5-[address] (LOPRESSOR) 09:36: (100 mg Hos barb 100 mg 40 total) by l tablet mouth 2 (two) times a day. amIODarone 0 Yes 100mg QD Take 0.5 Me thodi (PACERONE) 5-[address] 200 MG 09:36: (100 mg Hospita tablet 40 total) by l mouth daily. furosemide 0 Yes 20mg Q.5D Take 1 Metho di (LASIX) 20 5-16 tablet (20 st mg tablet 00:00: mg total) Hos barb 00 by mouth 2 l (two) times a day. spironolact 2023- Yes 25mg QD Take 1 Met hodi one 5-16 05-16 tablet (25 st (Aldactone) 00:00: 04:59 mg total) Hospita 25 MG 00 :00 by mouth l tablet daily. lisinopriL 2020-0 2020- No 2.5mg QD Take [address] [facility] (PRINIVIL,Z 9-30 10-30 tablet [facility] ESTRIL) 2.5 00:00: 23:59 (2.5 mg Me dical MG tablet 00 :00 total) by Cente r mouth daily for 30 days. lisinopriL 2020-0 2020- No 2.5mg QD Take [address] (PRINIVIL,Z 9-30 10-30 tablet [facility] ESTRIL) 2.5 00:00: 23:59 (2.5 mg Me dical MG tablet 00 :00 total) by Cente r mouth daily for 30 days. lisinopriL 2020- No 2.5mg QD Take [address] (PRINIVIL,Z - 10-30 tablet [facility] ESTRIL) 2.5 00:00: 23:59 [...] 40mg Q.5D Take [address] e 07-11- tablet (40 [facility] (PROTONIX) 00:00: 23:59 mg total) M edical 40 MG 00 :00 by mouth 2 Center tablet (two) times daily for 60 days. pantoprazol 2020- No 40mg Q.5D Take [address] e 07-11- tablet (40 [facility] (PROTONIX) 00:00: 23:59 mg total) M edical 40 MG 00 :00 by mouth 2 Center tablet (two) times daily for 60 days. pantoprazol 2020- No 40mg Q.5D Take [address] [facility] 07-11- tablet (40 [facility] (PROTONIX) 00:00: 23:59 mg total) M edical 40 MG 00 :00 by mouth 2 Center tablet (two) times daily for 60 days. albuterol-i 2020-2020- No 1{puff} Inhale [address] pratropium [...] Cough for up to 7 days. methylPREDN No follow [facility] ISolone 07-11 package [facility] (MEDROL 00:00: 23:59 directions Med ical DOSEPACK) 4 00 :00 . Center mg tablet benzonatate No 100mg Take [address] [...] tablet mouth daily for 5 days. azithromyci 500mg QD Take [address] [facility] 07-11 10-04 tablet [facility] (ZITHROMAX) 00:00: 23:59 (500 mg [...] WEIGHT 2021-06-28 22:00:00 90.311 kg Systolic blood 2023-02-25 14:35:00 156 mm[Hg] [facility] pressure Diastolic blood 2023-02-25 14:35:00 89 mm[Hg] [facility] pressure Heart rate 2023-02-25 14:35:00 62 /min [facility] Body height 2023-02-25 14:35:00 170.2 cm [facility] Body weight 2023-02-25 14:35:00 75.479 kg [facility] BMI 2023-02-25 14:35:00 26.06 kg/m2 [facility] Systolic blood 2021-07-11 16:00:00 139 mm[Hg] [facility] Diastolic blood 2021-07-11 16:00:00 75 mm[Hg] [facility] Heart rate 2021-07-11 16:00:00 106 /min [facility] Body temperature 2021-07-11 16:00:00 36.83 Renetta [facility] Respiratory rate 2021-07-11 16:00:00 18 /min [facility] Oxygen saturation in 2021-07-11 16:00:00 96 /min [facility] Arterial blood by Medical Ce nter Pulse oximetry Body weight 2021-06-29 10:00:00 89.359 kg [facility] BMI 2021-06-29 10:00:00 31.80 kg/m2 [facility] Body height 2021-06-28 22:00:00 167.6 cm [facility] Procedures Procedure Date / Time Performing Clinician Source Performed ECHOCARDIOGRAM 2023-01-22 00:00:00 Alejandro Jose spital TRANSESOPHAGEAL ECHOCARDIOGRAM 2023-01-11 00:00:00 Alejandro Jose spital TRANSESOPHAGEAL [id number] 2022-11-08 00:00:00 Bell Izquiedro spital ECG 12-LEAD 2022-11-08 [facility] 1 VW 2022-11-06 00:00:00 [facility] External Data ECG 12-LEAD 2022-11-06 00:00:00 [facility] External Data ECG 12-LEAD 2022-06-07 00:00[facility] POCT-GLUCOSE METER 2021-07-11 15:57:00 [facility] 2021-07-11 11:37:00 James Perez [facility] POCT-GLUCOSE METER 2021-07-11 06:08:00 James Perez [facility] MAGNESIUM 2021-07-11 04:18:00 Fuentes [facility] CBC W/PLT COUNT & AUTO 2021-07-11 04:18:00 [facility]OLIC 2021-07-11 04:18:00 James Perez [facility] CBC W/PLT COUNT & AUTO 2021-07-11 04:18:00 [facility] POCT-[facility]UCOSE METER 2021-07-10 20:33:00 [facility] POCT-GLUCOSE METER 2021-07-10 16:57:00 [facility] POCT-GLUCOSE METER 2021-07-10 11:38:00 [facility] XR CHEST 1 VIEW PORTABLE / 2021-07-10 08:16:[address] [facility] POCT-GLUCOSE METER 2021-07-10 06:08:00 [facility] 2021-07-10 04:26:00 [facility] W/PLT COUNT & AUTO 2021-07-10 04:26:00 [facility]mes [facility] COMPREHENSIVE METABOLIC 2021-07-10 04:26:[address] [facility] CBC W/PLT COUNT & AUTO 2021-07-10 04:26:00 James Perez [facility] POCT-GLUCOSE METER 2021-07-09 20:12:00 James Perez [facility] POCT-GLUCOSE METER 2021-07-09 17:01:00 James Perez [facility] POCT-GLUCOSE METER 2021-07-09 13:55:00 Chris [facility] POCT-GLUCOSE METER 2021-07-09 06:27:00 [facility] PREPARE LEUKO-REDUCED RBC 2021-07-08 23:54:00 [facility] POCT-GLUCOSE METER 2021-07-08 20:10:00 James Perez [facility] POCT-GLUCOSE METER 2021-07-08 15:26:00 Chris [facility] POCT-GLUCOSE METER 2021-07-08 11:24:00 Chris [facility] POCT-GLUCOSE METER 2021-07-08 06:25:00 [facility] CBC W/PLT COUNT & AUTO 2021-07-08 04:41:00 James Perez [facility] COMPREHENSIVE METABOLIC 2021-07-08 04:41:[address] James Perez [address] [facility] MAGNESIUM 2021-07-08 04:41:00 [facility] W/PLT COUNT & AUTO 2021-07-08 04:41:00 James Perez [facility] POCT-GLUCOSE METER 2021-07-07 21:46:00 [facility] PO[facility]-GLUCOSE METER 2021-07-07 15:09:00 [facility] POCT-GLUCOSE METER 2021-07-07 11:47:00 [facility] POCT-GLUCOSE METER 2021-07-07 06:19:00 [facility] CBC W/PLT COUNT & AUTO 2021-07-07 06:12:00 [facility] 2021-07-07 06:12:00 James Perez [facility] COMPREHENSIVE METABOLIC 2021-07-07 06:12:00 James Perez [facility] CBC W/PLT COUNT & AUTO 2021-07-07 06:12:00 [facility] TRANSFUSE LEUKO-REDUCED 2021-07-07 05:33:[address] [facility] BLOOD [facility] TRANSFUSE LEUKO-REDUCED 2021-07-06 23:14:[address] [facility] BLOOD [facility] NM GI BLEED STUDY 2021-07-06 22:50:00 Kylie Flores [facility] POCT-GLUCOSE METER 2021-07-06 20:45:00 [facility]H, MANUAL 2021-07-06 17:36:00 Mirna Calderon [facility] TYPE AND SCREEN, AUTOMATED 2021-07-06 16:28:00 [facility] POCT-GLUCOSE METER 2021-07-06 16:00:00 Chris [facility] CBC W/PLT COUNT & AUTO 2021-07-06 14:25:00 ChrisJames gordillo [facility] CBC W/PLT COUNT & AUTO 2021-07-06 14:25:00 [facility] ([facility] DIFFERENTIAL) 2021-07-06 14:25:00 Chris [facility] COMPREHENSIVE METABOLIC 2021-07-06 13:26:00 Chris [facility] MAGNESIUM 2021-07-06 13:26:00 ChrisJames [facility] POCT-GLUCOSE METER 2021-07-06 12:05:00 [facility] XR CHEST 1 VIEW PORTABLE / 2021-07-06 06:53:[address] [facility] POCT-GLUCOSE METER 2021-07-06 06:27:00 [facility] POCT-GLUCOSE METER 2021-07-05 15:32:00 [facility] POCT-GLUCOSE METER 2021-07-05 11:52:00 [facility] POCT-GLUCOSE METER 2021-07-05 06:13:00 James Perez [facility] MAGNESIUM 2021-07-05 04:26:00 Fuentes Garcia [facility] CBC W/PLT COUNT & AUTO 2021-07-05 04:26:00 Jamey Perezmary kate [facility] COMPREHENSIVE METABOLIC 2021-07-05 04:26:00 Chris [facility] CBC W/PLT COUNT & AUTO 2021-07-05 04:26:00 [facility] CBC W/PLT COUNT & AUTO 2021-07-04 20:04:00 ChrisJames gordillo [facility] CBC W/PLT COUNT & AUTO 2021-07-04 20:04:00 HcrisJames gordillo [facility] (MANUAL DIFFERENTIAL) 2021-07-04 20:04:00 Jamey Perezmary kate [facility] POCT-GLUCOSE METER 2021-07-04 19:39:00 Chris James [facility] POCT-GLUCOSE METER 2021-07-04 16:02:00 Chris [facility] POCT-GLUCOSE METER 2021-07-04 11:41:00 Chris [facility] C-REACTIVE PROTEIN 2021-07-04 05:03:00 Dora Lydia [facility] D-DIMER 2021-07-04 05:03:00 Lydia John [facility] CBC W/PLT COUNT & AUTO 2021-07-04 05:03:00 Chris James [facility] MAGNESIUM 2021-07-04 05:03:00 [facility] BASIC METABOLIC PANEL (7) 2021-07-04 05:03:00 [facility] CBC W/PLT COUNT & AUTO 2021-07-04 05:03:00 James Perez [facility] POCT-GLUCOSE METER 2021-07-04 04:41:00 [facility] POCT-GLUCOSE METER 2021-07-03 20:01:00 [facility] POCT-GLUCOSE METER 2021-07-03 16:15:00 Chris [facility] POCT-GLUCOSE METER 2021-07-03 12:28:00 Chris [facility] XR CHEST 1 VIEW PORTABLE / 2021-07-03 06:27:[address] [facility] POCT-GLUCOSE METER 2021-07-03 06:21:00 Chris [facility] POCT-GLUCOSE METER 2021-07-02 21:02:00 [facility] POCT-GLUCOSE METER 2021-07-02 15:20:00 Chris [facility] POCT-GLUCOSE METER 2021-07-02 11:54:00 [facility] CT CHEST FOR PULMONARY 2021-07-02 10:42:00 Lydia John [facility] EMBOLUS [facility] POCT-GLUCOSE METER 2021-07-02 06:34:00 Chris [facility] POCT-GLUCOSE METER 2021-07-01 21:27:00 Chris [facility] POCT-GLUCOSE METER 2021-07-01 16:36:00 [facility] VENOUS DOPPLER LEGS 2021-07-01 12:20:[address] [facility] POCT-GLUCOSE METER 2021-07-01 11:43:00 [facility] CBC W/PLT COUNT & AUTO 2021-07-01 09:50:00 Lydia John [facility] COMPREHENSIVE METABOLIC 2021-07-01 09:50:00 Lydia John [facility] C-REACTIVE PROTEIN 2021-07-01 09:50:00 Lydia John [facility] D-DIMER 2021-07-01 09:50:00 Lydia John [facility] CBC W/PLT COUNT & AUTO 2021-07-01 09:50:00 Lydia John [facility] (MANUAL DIFFERENTIAL) 2021-07-01 09:50:00 Lydia John [facility] POCT-GLUCOSE METER 2021-07-01 06:32:00 James Perez Siraj [facility] POCT-GLUCOSE METER 2021-06-30 21:10:00 ChrisJames gordillojeferson [facility] POCT-GLUCOSE METER 2021-06-30 16:17:00 [facility]UCOSE [facility]ER 2021-06-30 11:38:00 ChrisJames gordillo [facility] POCT-GLUCOSE METER 2021-06-30 06:21:00 Jamey Perezmary kate [facility] X[facility] CHEST 1 VIEW PORTABLE / 2021-06-30 06:07:00 [facility] PR[facility]/INR 2021-06-30 04:19:00 [facility] HEPATIC FUNCTION PANEL 2021-06-30 04:19:[address] [facility] LIPID PANEL 2021-06-30 04:19:00 Ann [facility] CBC W/PLT COUNT & AUTO 2021-06-30 04:19:00 Ann Marie [facility] DIFFERENTIAL [facility] COMPREHENSIVE METABOLIC 2021-06-30 04:19:00 Jamey Perezmary kate Foxedel [facility] MAGNESIUM 2021-06-30 04:19:00 Jamey Perezmary kate [facility] CBC W/PLT COUNT & AUTO 2021-06-30 04:19:00 PARTH Jesus [facility] DIFFERENTIAL [facility] POCT-GLUCOSE METER 2021-06-29 19:20:00 Jamey Perezmary kate Plummerjeferson [facility] POCT-GLUCOSE METER 2021-06-29 15:59:00 Jamey Perezmary kate [facility] D-DIMER 2021-06-29 12:23:[address] [facility] C-REACTIVE PROTEIN 2021-06-29 12:23:00 Lydia John [facility] POCT-GLUCOSE METER 2021-06-29 11:06:00 James Perez [facility] POTASSIUM, RANDOM URINE 2021-06-29 08:54:00 [facility] [place] [facility] OSMOLALITY, URINE 2021-06-29 08:54:00 [facility] SODIUM, RANDOM URINE 2021-06-29 08:54:00 [facility], [facility] PROTEIN, RANDOM URINE 2021-06-29 08:54:00 [facility], [facility] CREATININE, RANDOM URINE 2021-06-29 08:54:00 [facility], [facility] URINALYSIS W/ MICROSCOPIC 2021-06-29 08:54:00 [facility] XR CHEST 1 VIEW PORTABLE / 2021-06-29 05:59:00 Abbey Jesus [facility] BEDSIDE [facility] HEPATIC FUNCTION PANEL 2021-06-29 03:37:[address] [facility] LIPID PANEL 2021-06-29 03:37:00 Ann [facility] CBC W/PLT COUNT & AUTO 2021-06-29 03:37:00 Ann Marie [facility] DIFFERENTIAL [facility] PROTHROMBIN TIME/INR 2021-06-29 03:37:00 Ann [facility] BASIC METABOLIC PANEL (7) 2021-06-29 03:37:00 Lydia John ne [facility] CBC W/PLT COUNT & AUTO 2021-06-29 03:37:[address] [facility] S [facility] DIFFERENTIAL [facility] Plan of Care Planned Activity Planned Date Details Comments Source Future Scheduled 2023-06-13 Influenza Vaccine [facility] Test 00:00:00 (Season Ended) [code [facility]ine (Season Ended)] Future Scheduled 2023-04-07 [facility] 17:56:27 malignant neoplasm of colon (procedure) [code = 132474345] Future Scheduled 2023-04-07 [facility] Test 17:56:27 malignant neoplasm of colon (procedure) [code = 951723267] Future Scheduled 2023-04-07 [facility] Test 17:56:27 malignant neoplasm of colon (procedure) [code = 574999648] Future Scheduled 2023-04-07 [facility]:56[facility]27 [code = COVID-19 VACCINE (#1)] Future Scheduled 2023-04-07 65[facility] Test 17:56:27 VACCINE (1 - PCV) [code = 65+ PNEUMOCOCCAL VACCINE (1 - PCV)] Future Scheduled 2023-04-07 [facility] 17:56:27 (procedure) [code = 373429703] Future Scheduled 2023-04-07 BREAST CANCER [facility] Test 17:56:27 SCREENING [code = BREAST CANCER SCREENING] Future Scheduled 2023-04-07 [facility] Test 17:56:27 malignant neoplasm of colon (procedure) [code = 407976474] Future Scheduled 2023-04-07 [facility] 17:56:27 malignant neoplasm of colon (procedure) [code = 323790842] Future Scheduled 2023-04-07 SHINGLES VACCINES (1 [facility] 17:56:27 of 2) [code = SHINGLES VACCINES (1 of 2)] Future Scheduled 2023-04-07 INFLUENZA VACCINE [facility] Test 17:56:27 [code = INFLUENZA VACCINE] Future Scheduled 2022-10-[address] [facility] Test 00:00:00 (12+) [code = Medical Center DEPRESSION SCREENING (12+)] Future Scheduled 2022-10-13 FALLS RISK SCREENING [facility] Test 00:00:00 [code = FALLS RISK Medical C enter SCREENING] Future Scheduled 2022-10-[address] [facility] Test 00:00:00 (12+) [code = Medical Center DEPRESSION SCREENING (12+)] Future Scheduled 2022-10-13 FALLS RISK SCREENING [facility] Test 00:00:00 [code = FALLS RISK Medical C enter SCREENING] Future Scheduled 2022-10-[address] [...] 2013 PNEUMOCOCCAL 65+ YRS [facility] Test 00:00:00 (1 of 1 - Medical Center [id number]) [code = PNEUMOCOCCAL 65+ YRS (1 of 1 - [id number] [id number])] Future Scheduled 2013 PNEUMOCOCCAL 65+ Y[facility] Test 00:00:00 (1 of 1 - Medical Center [id number] PCV13) [code = PNEUMOCOCCAL 65+ YRS (1 of 1 - [id number] [id number])] Future Scheduled 1998 SHINGLES VACCINES ([address] [facility] Test 00:00:00 of 2) [code = SHINGLES Medic al Center VACCINES (1 of 2)] Future Scheduled 1998 SHINGLES VACCINES ([address] [facility] Test 00:00:00 of 2) [code = SHINGLES Medic al Center VACCINES (1 of 2)] Future Scheduled 1998 SHINGLES VACCINES ([address] [facility] Test 00:00:00 of 2) [code = SHINGLES Medic al Center VACCINES (1 of 2)] Future Scheduled 1998 SHINGLES VACCINES ([address] [facility] Test 00:00:00 of 2) [code = SHINGLES Medic al Center VACCINES (1 of 2)] Future Scheduled 1998 SHINGLES VACCINES ([address] [facility] Test 00:00:00 of 2) [code = SHINGLES Medic al Center VACCINES (1 of 2)] Future Scheduled 1998 SHINGLES VACCINES ([address] [facility] Test 00:00:00 of 2) [code = SHINGLES [...] Cessation Counseling and Screening (12+)] Future Scheduled [address] [facility] Test 00:00:00 Counseling and Medical Cente r Screening (12+) [code = Tobacco Cessation Counseling and Screening (12+)] Future Scheduled [address] [facility] Test 00:00:00 Counseling and Medical Cente r Screening (12+) [code = Tobacco Cessation Counseling and Screening (12+)] Future Scheduled 1954 PNEUMOCOCCAL 65+ YRS [facility] Test 00:00:00 (1 - PCV) [code = Medical Ce nter PNEUMOCOCCAL 65+ YRS (1 - PCV)] Future Scheduled 1954 PNEUMOCOCCAL 65+ YRS [facility] Test 00:00:00 (1 - PCV) [code = Medical Ce nter PNEUMOCOCCAL 65+ YRS (1 - PCV)] Future Scheduled 1954 PNEUMOCOCCAL 65+ Y[facility] Test 00:00:00 (1 - PCV) [code = Medical Ce nter PNEUMOCOCCAL 65+ YRS (1 - PCV)] Future Scheduled 1954 PNEUMOCOCCAL 65+ Y[facility] Test 00:00:00 (1 - PCV) [code = Medical Ce nter PNEUMOCOCCAL 65+ YRS (1 - PCV)] Future [...] VACCINE (#1)] Future Scheduled [address] 00:[facility]00 malignant neoplasm of Medica l Center breast (procedure) [code = 558776020] Future Scheduled [address] [facility] Test 00[facility]00:00 malignant neoplasm of Medica l Center colon (procedure) [code = 024608338] Future Scheduled [address] [facility] Test 00:00:00 malignant neoplasm of Medica l Center breast (procedure) [code = 418339894] Future Scheduled [address] [facility] Test 00:00:00 malignant neoplasm of Medica l Center colon (procedure) [code = 791364398] Future Scheduled [address] [facility] Test 00:00:00 malignant neoplasm of Medica l Center breast (procedure) [code = 025114703] Future Scheduled [address] [facility] 00:00:00 (combo) [code = CT Medical C enter Colonography (combo)] Future Scheduled [address] [facility] colon (procedure) [code = 066973887] Future Scheduled [address] [facility]00 [facility] colon (procedure) [code = 326612440] Future Scheduled 1948 DXA SCAN [code = DXA [facility] 00:[facility]:00 SCAN] [facility] Future Scheduled [address] [facility] 00:[facility]:00 [facility] colon (procedure) [code = 217156626] Future Scheduled [address] [facility] 00:00:00 [facility] colon (procedure) [code = 142592504] Future Scheduled 1948 Sigmoidoscopy [facility]code [facility] Future Scheduled [address] [facility] 00:[facility]:00 [facility] breast (procedure) [code = 345771198] Future Scheduled [address] [facility] 00:00:00 (combo) [code = CT Medical C enter Colonography (combo)] Future Scheduled [address] [facility] 00:00:00 [facility] colon (procedure) [code = 129992147] Future Scheduled [address] [facility] 00:00:00 [facility] colon (procedure) [code = 379798779] Future Scheduled 1948 DXA SCAN [code = DXA [facility] 00:00:00 SCAN] [facility] Future Scheduled [address] [facility] 00:00:00 [facility] colon (procedure) [code = 060345328] Future Scheduled [address] [facility] 00:00:00 malignant [facility] colon (procedure) [code = 126476594] Future Scheduled 1948 Sigmoidoscopy [facility]] [facility] Future Scheduled [address] [facility] 00:00:00 [facility] breast (procedure) [code = 572477530] Future Scheduled [address] [facility] 00:00:00 (combo) [code = CT Medical C enter Colonography (combo)] Future Scheduled [address] [facility] 00:00:00 [facility] colon (procedure) [code = 564875047] Future Scheduled [address] [facility] 00:00:00 [facility] colon (procedure) [code = 655127964] Future Scheduled 1948 DXA SCAN [code = DXA [facility] 00:00:00 SCAN] [facility] Future Scheduled [address] [facility] 00:00:00 malignant [facility] colon (procedure) [code = 069589795] Future Scheduled [address] [facility] 00:00:00 malignant [facility] colon (procedure) [code = 206245957] Future Scheduled 1948 Sigmoidoscopy [facility]code [facility]] [facility] Future Scheduled [address] [facility] 00:00:00 (combo) [code = CT Medical C enter Colonography (combo)] Future Scheduled [address] [facility] 00:00:00 malignant [facility] colon (procedure) [code = 569438253] Future Scheduled [address] [facility] 00:00:00 [facility] colon (procedure) [code = 594591808] Future Scheduled 1948 DXA SCAN [code = DXA [facility] 00:00:00 SCAN] [facility] Future Scheduled [address] [facility] 00:00:00 [facility] colon (procedure) [code = 674576098] Future Scheduled [address] [facility] 00:[facility]:00 malignant [facility] colon (procedure) [code = 978139303] Future Scheduled 1948 Sigmoidoscopy [facility]code [facility]] [facility] Future Scheduled [address] [facility] 00:00:00 malignant neoplasm of [facility] breast (procedure) [code = 921923120] Encounters Start End Encounter Admission Attending Care Care Encounter Source Date/Time Date/Time Type Type Clinicians Facility Department ID 2021-08-30 [id number] 2021-07-22 Inpatient UR CHRISJAMES Gordillo [facility] [id number] [facility] 12:46:41 2023-04-07 2023-04-07 Orders Marlen, 1.2.840.1 [id number] [id number] Methodi 00:00:00 00:00:00 Only Generic 02450.1.[address] External 3.430.2.7 Hospi ta Data .3.913299 l .8 2023-02-25 2023-02-25 Office Dewey 1.2.840.1 [id number] 9440 Methodi 10:15:00 10:36:14 Visit Ming 01065.1.[address] 3.430.2.7 Hospit a .3.892095 l .8 2023-02-25 2023-02-25 Outpatient [facility] [id number] [address] [place] 00:00:00 00:00:00 MING [address] 2023-02-25 2023-02-25 Travel 1.2.840.1 1.2.544.969 5916 214309 Methodi 00:00:00 00:00:[address] 3.430.2.7 0.2.7.3.698 Ho spita .3.109421 084.8 l .8 2023-02-24 2023-02-24 Orders Chris Jameymary kate 1.2.840.1 [id number] 21 [id number] Methodi 00:00:00 00:00:00 Only Siraj 67296.1.[address] 3.430.2.7 Hospit a .3.754550 l .8 2023-01-21 2023-01-21 Office Dewey, 1.2.840.1 [id number] 212213 1334 Methodi 14:15:00 14:45:00 Visit Ming 88408.1.[address] 3.430.2.7 Hospit a .3.680290 l .8 2023-01-21 2023-01-21 Outpatient [facility] [id number] [address] [place] 00:00:00 00:00:00 MING [address] 2023-01-21 2023-01-21 Travel 1.2.840.1 1.2.001.040 0194 192014 Methodi 00:00:00 00:00:[address] 3.430.2.7 0.2.7.3.698 Ho spita .3.228568 084.8 l .8 2022-12-25 2022-12-25 Travel 1.2.840.1 1.2.252.489 3775 507311 Methodi 00:00:00 00:00:[address] 3.430.2.7 0.2.7.3.698 Ho spita .3.959924 084.8 l .8 2021-06-28 2021-07-11 [facility] James Romeo [facility] [id number] 20 [id number] [facility] 22:13:00 23:11:00 Encounter [facility] 2021-06-29 2021-06-29 Travel [facility] [id number] [facility] 00:00:00 00:00:00 [facility] Results Test Description Test Time Test Comments Results Result Comments Source POC-Glucose meter 2021-07-11 16:08:47 Test Item Value Reference Range Interpretation Comme nts POC-Glucose Meter (test code = 228 mg/dL 70-110 H : TESTED AT [address]) [facility] [address]: Bomb [employer] Commander/Techni unique ID = [id number] for Ishmael, Ayin or Lab Interpretation (test code = Abnormal 71899-9) [facility] [id number] 16:08:47 Test Item Value Reference Range Interpretation Comments POC-Glucose Meter (test 228 mg/dL 70-110 H : TE RODRIGUEZD AT [facility] code = 1538) [address] [address]: Bomb [employer] Commander/Techni unique ID = [id number] for Ishmael, Ayin or Lab Interpretation (test Abnormal code = 64485-4) [facility] [id number] 16:08:47 Test Item Value Reference Range Interpretation Comments POC-Glucose Meter (test 228 mg/dL 70-110 H : TE STED AT [facility] code = 1538) [address] [place] [address]: Bomb [employer] Commander/Techni unique ID = [id number] for Ishmael, Ayin or Lab Interpretation (test Abnormal code = 75480-4) [facility]-GLUCOSE [id number] 16:08:47 Test Item Value Reference Range Interpretation Comments POC-GLUCOSE METER 228 mg/dL 70-110 H : TESTED A T [facility] 1317 (BEAKER) (test code [facility], = 1538) [place] [address]: [employer] Commander/Techni unique ID = [id number] for Agatalakesha olivierlisa Abhinavvladr POCT-GLUCOSE [id number] 11:49:12 Test Item Value Reference Range Interpretation Comments POC-GLUCOSE METER 122 mg/dL 70-110 H : TESTED A T [facility]17 (BEAKER) (test code [facility], = 1538) [place] [address]: Bomb [employer] Commander/Techni unique ID = [id number] for Agata olivierneAbhinavinor Comprehensive metabolic [id number] 06:20:58 Test Item Value Reference Range Interpretation Comments Protein, Total (test 4.8 See_Comment L [Autom ated code = 2885-2) message] The system which generated this result transmitted reference range : 6.0 - 8.5 gm/dL . The reference range was not used to interpr et this result as normal/abnormal . Albumin (test code = 2.6 g/dL 3.5-5.0 L 04742-2) Alkaline Phosphatase 49 U/L 30-115 (test code = 6768-6) Total Bilirubin 0.5 mg/dL 0.1-1.2 (test code = 1975-2) Sodium (test code = 142 meq/L 230-923 8839-2) Potassium (test code 3.3 meq/L 3.6-5.5 L = 2823-3) Chloride (test code 110 meq/L 98-106 H = 2075-0) CO2 (test code = 22 meq/L -29 2027-9) BUN (test code = 13 mg/dL - 3094-0) Creatinine (test 0.64 mg/dL 0.50-1.20 code = 2160-0) Glucose (test code = 135 mg/dL 70-110 H 2345-7) Calcium (test code = 8.2 mg/dL 8.5-10.5 L 77746-8) AST (test code = 14 U/L 5-40 1920-8) ALT (test code = 32 U/L -50 1742-6) EGFR (test code = 111 mL/min/1[place]73 [place] [address]-5) m NOT ACCURATE CREATININE CLEARANCE IN PREDICTING GLOMERULAR FILTRATION RATE . ESTIMATED GFR I S NOT APPLICABLE FOR DIALYSIS PATIENTS. LINDY (test code = Bomb Squad Commander ID - LINDY) LITOOperator ID - LITOOperator ID - LITOOperator ID - LITOOperator ID - LITOOperator ID - LITOOperator ID - LITOOperator ID - LITOOperator ID - LITOOperator ID - LITOOperator ID - LITOOperator ID - LITOOperator ID - LITOOperator ID - LITOOperator ID - LITOOperator ID - FLORENCIO Lab Interpretation Abnormal (test code = 65487-6) [facility] [id number] 06:20:58 Test Item Value Reference Range Interpretation Comments Protein, Total (test 4.8 See_Comment L [Autom ated code = 2885-2) message] The system which generated this result transmitted reference range : 6.0 - 8.5 gm/dL . The reference range was not used to interpr et this result as normal/abnormal . Albumin (test code = 2.6 g/dL 3.5-5.0 L 30070-4) Alkaline Phosphatase 49 U/L 30-115 (test code = 6768-6) Total Bilirubin 0.5 mg/dL 0.1-1.2 (test code = 1975-2) Sodium (test code = 142 meq/L 869-019 1987-2) Potassium (test code 3.3 meq/L 3.6-5.5 L = 2823-3) Chloride (test code 110 meq/L 98-106 H = 5-0) CO2 (test code = 22 meq/L -29 2027-9) BUN (test code = 13 mg/dL 10-26 3094-0) Creatinine (test 0.64 mg/dL 0.50-1.20 code = 2160-0) Glucose (test code = 135 mg/dL 70-110 H 2345-7) Calcium (test code = 8.2 mg/dL 8.5-10.5 L 89378-2) AST (test code = 14 U/L 5-40 1920-8) ALT (test code = 32 U/L -50 1742-6) EGFR (test code = 111 mL/min/1[place] [address]-4) m NOT ACCURATE CREATININE CLEARANCE IN PREDICTING GLOMERULAR FILTRATION RATE . ESTIMATED GFR I S NOT APPLICABLE FOR DIALYSIS PATIENTS. LINDY (test code = Bomb Squad Commander ID - LINDY) LITOOperator ID - LITOOperator ID - LITOOperator ID - LITOOperator ID - LITOOperator ID - LITOOperator ID - LITOOperator ID - LITOOperator ID - LITOOperator ID - LITOOperator ID - LITOOperator ID - LITOOperator ID - LITOOperator ID - LITOOperator ID - LITOOperator ID - FLORENCIO Lab Interpretation Abnormal (test code = 05611-5) [facility] [id number] 06:20:58 Test Item Value Reference Range Interpretation Comments Protein, Total (test 4.8 See_Comment L [Autom ated code = 2885-2) message] The system which generated this result transmitted reference range : 6.0 - 8.5 gm/dL . The reference range was not used to interpr et this result as normal/abnormal . Albumin (test code = 2.6 g/dL 3.5-5.0 L 09580-9) Alkaline Phosphatase 49 U/L 30-115 (test code = 6768-6) Total Bilirubin 0.5 mg/dL 0.1-1.2 (test code = 1975-2) Sodium (test code = 142 meq/L 466-008 5413-2) Potassium (test code 3.3 meq/L 3.6-5.5 L = 2823-3) Chloride (test code 110 meq/L 98-106 H = 2075-0) CO2 (test code = 22 meq/L -29 8-9) BUN (test code = 13 mg/dL 10- 3094-0) Creatinine (test 0.64 mg/dL 0.50-1.20 code = 2160-0) Glucose (test code = 135 mg/dL 70-110 H 2345-7) Calcium (test code = 8.2 mg/dL 8.5-10.5 L 44579-7) AST (test code = 14 U/L 5-40 1920-8) ALT (test code = 32 U/L -50 1742-6) EGFR (test code = 111 mL/min/1.[place] [address]-8) m NOT ACCURATE CREATININE CLEARANCE IN PREDICTING GLOMERULAR FILTRATION RATE . ESTIMATED GFR I S NOT APPLICABLE FOR DIALYSIS PATIENTS. LINDY (test code = Bomb Squad Commander ID - LINDY) LITOOperator ID - LITOOperator ID - LITOOperator ID - LITOOperator ID - LITOOperator ID - LITOOperator ID - LITOOperator ID - LITOOperator ID - LITOOperator ID - LITOOperator ID - LITOOperator ID - LITOOperator ID - LITOOperator ID - LITOOperator ID - LITOOperator ID - FLORENCIO Lab Interpretation Abnormal (test code = 54110-6) [facility] [id number] 06:20:58 Test Item Value Reference Range Interpretation [...] S NOT APPLICABLE FOR DIALYSIS PATIEN TS. Bomb Squad Commander ID - LITOOperator ID - LITOOperator ID [...] code [address], = 1538) [facility] [address]: Bomb Squad Commander/Techni unique ID = [id number] for Elizabeth Joshua [id number] 06:19:13 Test Item Value Reference Range Interpretation Comments Magnesium (test code = 1.7 mg/dL 1.5-3.0 20112-1) LINDY (test code = LINDY) Bomb Squad Commander ID - LITOOperator ID - LITOOperator ID - LITOOperator ID - FLORENCIO Lab Interpretation (test Normal code = 54648-3) [facility] 06:19:13 Test Item Value Reference Range Interpretation Comments Magnesium (test code = 1.7 mg/dL 1.5-3.0 28630-4) LINDY (test code = LINDY) Bomb Squad Commander ID - LITOOperator ID - LITOOperator ID - LITOOperator ID - FLORENCIO Lab Interpretation (test Normal code = 46975-2) [facility] 06:19[facility]13 Test Item Value Reference Range Interpretation Comments Magnesium (test code = 1.7 mg/dL 1.5-3.0 80451-3) LINDY (test code = LINDY) Bomb Squad Commander ID - LITOOperator ID - LITOOperator ID - LITOOperator ID - FLORENCIO Lab Interpretation (test Normal code = 70874-1) [facility] 06:19[facility]13 Test Item Value Reference Range Interpretation Comments MAGNESIUM (BEAKER) (test code = 1.7 mg/dL 1.5-3.0 627) [employer] Commander ID - LITOOperator ID - LITOOperator ID - LITOOperator ID - LITOCBC with platelet count + automated [id number] 05:50:18 Test Item Value Reference Range Interpretation Comments WBC (test code = 6690-2) 6.1 See_Comment [A utomated message] The system Screen Fix Gibson generated this result transmitted ref erence range: 4.0 - 10 .0 K/L. The refe rence range was not u sed to interpret this result as normal/abnor mal. RBC (test code = 789-8) 2.98 See_Comment L [Au tomated message] The system Screen Fix Gibson generated this result transmitted ref erence range: 4.00 - 5 .00 M/L. The refe rence range was not u sed to interpret this result as normal/abnor mal. MCHC (test code = 786-4) 31.8 See_Comment L [A utomated message] The system Screen Fix Gibson generated this result transmitted ref erence range: [...] L [Aut omated message] 777-3) The system Screen Fix Gibson generated this result transmitted ref erence range: 150 - 43 0 K/CU MM. The referen ce range was not u sed to interpret this result as normal/abnor mal. MPV (test code = 10.8 fL 6.0-11.5 35669-1) nRBC (test code = 413) 1 See_Comment H [Aut omated message] The system Screen Fix Gibson generated this result transmitted ref erence range: [...] See_Comment [Aut omated message] 670) The system Screen Fix Gibson generated this result transmitted ref erence range: 1.80 - 8 .00 K/L. The refe rence range was not u sed to interpret this result as normal/abnor mal. # Lymphs (test code = 1.73 See_Comment [Auto mated message] 414) The system Screen Fix Gibson generated this result transmitted ref erence range: 1.48 - 4 .50 K/L. The refe rence range was not u sed to interpret this result as normal/abnor mal. # Monos (test code = 0.38 See_Comment [Autom ated message] 415) The system Screen Fix Gibson generated this result transmitted ref erence range: 0.00 - 1 .30 K/L. The refe rence range was not u sed to interpret this result as normal/abnor mal. # Eos (test code = 416) 0.02 See_Comment [Au tomated message] The system Screen Fix Gibson generated this result transmitted ref erence range: 0.00 - 0 .50 K/L. The refe rence range was not u sed to interpret this result as normal/abnor mal. # Baso (test code = 417) 0.01 See_Comment [A utomated message] The system Screen Fix Gibson generated this result transmitted ref erence range: 0.00 - 0 .20 K/L. The refe rence range was not u sed to interpret this result as normal/abnor mal. Immature 2 % 0-0 H Granulocytes-Relative (test code = 2801) Lab Interpretation (test Abnormal code = 26603-8) [facility] with platelet count + automated [id number] 05:50:18 Test Item Value Reference Range Interpretation Comments WBC (test code = 6690-2) 6.1 See_Comment [A utomated message] The system Screen Fix Gibson generated this result transmitted ref erence range: 4.0 - 10 .0 K/L. The refe rence range was not u sed to interpret this result as normal/abnor mal. RBC (test code = 789-8) 2.98 See_Comment L [Au tomated message] The system Screen Fix Gibson generated this result transmitted ref erence range: 4.00 - 5 .00 M/L. The refe rence range was not u sed to interpret this result as normal/abnor mal. MCHC (test code = 786-4) 31.8 See_Comment L [A utomated message] The system Screen Fix Gibson generated this result transmitted ref erence range: [...] L [Aut omated message] 777-3) The system Screen Fix Gibson generated this result transmitted ref erence range: 150 - 43 0 K/CU MM. The referen ce range was not u sed to interpret this result as normal/abnor mal. MPV (test code = 10.8 fL 6.0-11.5 50720-5) nRBC (test code = 413) 1 See_Comment H [Aut omated message] The system Screen Fix Gibson generated this result transmitted ref erence range: [...] See_Comment [Aut omated message] 670) The system Screen Fix Gibson generated this result transmitted ref erence range: 1.80 - 8 .00 K/L. The refe rence range was not u sed to interpret this result as normal/abnor mal. # Lymphs (test code = 1.73 See_Comment [Auto mated message] 414) The system Screen Fix Gibson generated this result transmitted ref erence range: 1.48 - 4 .50 K/L. The refe rence range was not u sed to interpret this result as normal/abnor mal. # Monos (test code = 0.38 See_Comment [Autom ated message] 415) The system Screen Fix Gibson generated this result transmitted ref erence range: 0.00 - 1 .30 K/L. The refe rence range was not u sed to interpret this result as normal/abnor mal. # Eos (test code = 416) 0.02 See_Comment [Au tomated message] The system Screen Fix Gibson generated this result transmitted ref erence range: 0.00 - 0 .50 K/L. The refe rence range was not u sed to interpret this result as normal/abnor mal. # Baso (test code = 417) 0.01 See_Comment [A utomated message] The system Screen Fix Gibson generated this result transmitted ref erence range: 0.00 - 0 .20 K/L. The refe rence range was not u sed to interpret this result as normal/abnor mal. Immature 2 % 0-0 H Granulocytes-Relative (test code = 2801) Lab Interpretation (test Abnormal code = 85465-7) [facility] with platelet count + automated [id number] 05:50:18 Test Item Value Reference Range Interpretation Comments WBC (test code = 6690-2) 6.1 See_Comment [A utomated message] The system Screen Fix Gibson generated this result transmitted ref erence range: 4.0 - 10 .0 K/L. The refe rence range was not u sed to interpret this result as normal/abnor mal. RBC (test code = 789-8) 2.98 See_Comment L [Au tomated message] The system Screen Fix Gibson generated this result transmitted ref erence range: 4.00 - 5 .00 M/L. The refe rence range was not u sed to interpret this result as normal/abnor mal. MCHC (test code = 786-4) 31.8 See_Comment L [A utomated message] The system Screen Fix Gibson generated this result transmitted ref erence range: [...] L [Aut omated message] 777-3) The system Screen Fix Gibson generated this result transmitted ref erence range: 150 - 43 0 K/CU MM. The referen ce range was not u sed to interpret this result as normal/abnor mal. MPV (test code = 10.8 fL 6.0-11.5 37224-2) nRBC (test code = 413) 1 See_Comment H [Aut omated message] The system Screen Fix Gibson generated this result transmitted ref erence range: [...] See_Comment [Aut omated message] 670) The system Screen Fix Gibson generated this result transmitted ref erence range: 1.80 - 8 .00 K/L. The refe rence range was not u sed to interpret this result as normal/abnor mal. # Lymphs (test code = 1.73 See_Comment [Auto mated message] 414) The system Screen Fix Gibson generated this result transmitted ref erence range: 1.48 - 4 .50 K/L. The refe rence range was not u sed to interpret this result as normal/abnor mal. # Monos (test code = 0.38 See_Comment [Autom ated message] 415) The system Screen Fix Gibson generated this result transmitted ref erence range: 0.00 - 1 .30 K/L. The refe rence range was not u sed to interpret this result as normal/abnor mal. # Eos (test code = 416) 0.02 See_Comment [Au tomated message] The system Screen Fix Gibson generated this result transmitted ref erence range: 0.00 - 0 .50 K/L. The refe rence range was not u sed to interpret this result as normal/abnor mal. # Baso (test code = 417) 0.01 See_Comment [A utomated message] The system Screen Fix Gibson generated this result transmitted ref erence range: 0.00 - 0 .20 K/L. The refe rence range was not u sed to interpret this result as normal/abnor mal. Immature 2 % 0-0 H Granulocytes-Relative (test code = 2801) Lab Interpretation (test Abnormal code = 63769-5) [facility] W/PLT COUNT & AUTO [id number] 05:50:18 Test Item Value Reference Range Interpretation [...] PERCENT (BEAKER) (test code = 2801) POCT-GLUCOSE [id number] 20:50:37 Test Item Value Reference Range Interpretation Comments POC-GLUCOSE METER 176 mg/dL 70-110 H : TESTED A T [facility] (BEAKER) (test code [address], = 1538) [place] [address]: Bomb Squad Commander/Techni unique ID = [id number] for Elizabeth Joshua POCT-GLUCOSE [id number] 17:10:15 Test Item Value Reference Range Interpretation Comments POC-GLUCOSE METER 223 mg/dL 70-110 H : TESTED A T [facility] (BEAKER) (test code [address], = 1538) [place] [address]: Bomb Squad Commander/Techni unique ID = [id number] for Juany tami Breanna POCT-GLUCOSE [id number] 11:50:56 Test Item Value Reference Range Interpretation Comments POC-GLUCOSE METER 241 mg/dL 70-110 H : TESTED A T [facility] [address] (BEAKER) (test code [address], = 1538) [place] [address]: Bomb Squad Commander/Techni unique ID = [id number] for Juany r Breanna RAD, CHEST, 1 VIEW, NON [id number] 09:19:00Reason for exam:->[facility] 1950 Sex: FFINAL [...] Perez Verified Date/Time: 07/10/2021 09:19:31 Reading Location: [facility] Radiology Reading Room POCT-GLUCOSE [id number] 06:20:04 Test Item Value Reference Range Interpretation Comments POC-GLUCOSE METER 207 mg/dL 70-110 H : TESTED A T [facility] 1317 (BEAKER) (test code [facility] [address], = 1538) [facility] [address]: Bomb Squad Commander/Techni unique ID = [id number] for Jesus Gil COMPREHENSIVE METABOLIC [id number] 05:46:05 Test Item Value Reference Range Interpretation [...] S NOT APPLICABLE FOR DIALYSIS PATIEN TS. Bomb Squad Commander ID - [id number] ID - [id number] ID - [id number] ID - [id number] ID - [id number] ID - [id number] ID - [id number] ID - [id number] ID - [id number] ID - [id number] ID - [id number] ID - [id number] ID - [id number] ID - [id number] ID - [id number] ID - [id number] 05:44:15 Test Item Value Reference Range Interpretation Comments MAGNESIUM (BEAKER) (test code = 2.0 mg/dL 1.5-3.0 627) Bomb Squad Commander ID - [id number] ID - [id number] ID - [id number] ID - [id number] W/PLT COUNT & AUTO [id number] 05:11:45 Test Item Value Reference Range Interpretation [...] PERCENT (BEAKER) (test code = 2801) POCT-GLUCOSE [id number] 20:27:38 Test Item Value Reference Range Interpretation Comments POC-GLUCOSE METER 191 mg/dL 70-110 H : TESTED A T [address] (BEAKER) ([facility] = [facility] [place] [id number]: Bomb Squad Commander/Techni unique ID = [id number] for Vanita crowder Don POCT-GLUCOSE [id number] 18:34:59 Test Item Value Reference Range Interpretation Comments POC-GLUCOSE METER 241 mg/dL 70-110 H : TESTED A T [address] (BEAKER) (test code [facility], = 1538) [place] [address] 478: Bomb Squad Commander/Techni unique ID = [id number] for Breanna Helm POCT-GLUCOSE [id number] 18:34:58 Test Item Value Reference Range Interpretation Comments POC-GLUCOSE METER 240 mg/dL 70-110 H : TESTED A T [address] (BEAKER) (test code [address], = 1538) [facility] 77 478: Bomb Squad Commander/Techni unique ID = [id number] for Breanna Helm POCT-GLUCOSE [id number] 06:43:22 Test Item Value Reference Range Interpretation Comments POC-GLUCOSE METER 102 mg/dL 70-110 : TESTED A T [address] (BEAKER) (test code [address], = 1538) [facility] 77 478: Bomb Squad Commander/Techni unique ID = [id number] for Ila Zhao Prepare Leuko-Red [id number] 23:54:00 Test Item Value Reference Range Interpretation Comments CROSSMATCH (test code = 2264) COMPATIBLE Unit ABO (test code = O Pos 6631300) UNIT NUMBER (test code = [id number] 934-0) Status (test code = 0922631) [facility] Blood Bank Product (test code RED BLOOD CELLS = 2263) PRODUCT CODE (test code = A9130S72 933-2) [facility] [id number] 23:54:00 Test Item Value Reference Range Interpretation Comments CROSSMATCH (test code = 2264) COMPATIBLE Unit ABO (test code = O Pos 8823693) UNIT NUMBER (test code = [id number] 934-0) Status (test code = 3181615) [facility] Product (test code RED BLOOD CELLS = 2263) PRODUCT CODE (test code = U8307J79 933-2) [facility]Red [id number] 23:54:00 Test Item Value Reference Range Interpretation Comments CROSSMATCH (test code = 2264) COMPATIBLE Unit ABO (test code = O Pos 1412377) UNIT NUMBER (test code = [id number] 934-0) Status (test code = 4807795) [facility] Product (test code RED BLOOD CELLS = 2263) PRODUCT CODE (test code = M5166B83 933-2) [facility] [id number] 20:38:01 Test Item Value Reference Range Interpretation Comments POC-GLUCOSE METER 217 mg/dL 70-110 H : TESTED A T [address] (BEAKER) (test code [address], = 1538) [place] [address] 478: Bomb Squad Commander/Techni unique ID = [id number] for Ila Zhao POCT-GLUCOSE [id number] 15:50:59 Test Item Value Reference Range Interpretation Comments POC-GLUCOSE METER 292 mg/dL 70-110 H : TESTED A T [address] (BEAKER) (test code [address], = 1538) [place] [address]: Bomb Squad Commander/Techni unique ID = [id number] for Conchis antes, Crystal POCT-GLUCOSE [id number] 11:51:33 Test Item Value Reference Range Interpretation Comments POC-GLUCOSE METER 126 mg/dL 70-110 H : TESTED A T [address] (BEAKER) (test code [address], = 1538) [place] [address]: Bomb Squad Commander/Techni unique ID = [id number] for Cerv antes, Crystal POCT-GLUCOSE [id number] 11:51:31 Test Item Value Reference Range Interpretation Comments POC-GLUCOSE METER 177 mg/dL 70-110 H : TESTED A T [address] (BEAKER) (test code [address], = 1538) [place] [address] 478: Bomb Squad Commander/Techni unique ID = [id number] for Josiane Vicente COMPREHENSIVE METABOLIC [id number] 05:57:28 Test Item Value Reference Range Interpretation [...] S NOT APPLICABLE FOR DIALYSIS PATIEN TS. Bomb Squad Commander ID - [id number] ID - [id number] ID - [id number] ID - [id number] ID - [id number] ID - [id number] ID - [id number] ID - [id number] ID - [id number] ID - [id number] ID - [id number] ID - [id number] ID - [id number] ID - [id number] ID - [id number] ID - [id number] [id number] 05:53:42 Test Item Value Reference Range Interpretation Comments MAGNESIUM (BEAKER) (test code = 1.8 mg/dL 1.5-3.0 627) Bomb Squad Commander ID - [id number] ID - [id number] ID - [id number] ID - [id number] W/PLT COUNT & AUTO [id number] 05:37:23 Test Item Value Reference Range Interpretation [...] 0-0 H PERCENT (BEAKER) (test code = 4341) POCT-GLUCOSE [id number] 23:12:51 Test Item Value Reference Range Interpretation Comments POC-GLUCOSE METER 244 mg/dL 70-110 H : TESTED A T [address] (BEAKER) (test code [address], = 1538) [facility] 77 478: Bomb Squad Commander/Techni unique ID = [id number] for Josiane Vicente POCT-GLUCOSE [id number] 15:53:03 Test Item Value Reference Range Interpretation Comments POC-GLUCOSE METER 237 mg/dL 70-110 H : TESTED A T [address] (BEAKER) (test code [address], = 1538) [facility] 77 478: Bomb Squad Commander/Techni unique ID = [id number] for Cerv antes, Crystal HEMORRHAGE IMAGING, [id number] 12:49:00We need the study done todayUnlisted Reason for Exam - Click Yes and Enter Reason Below->No [facility] 1950 Sex: FFINAL REPORT PROCEDURE: HEMORRHAGE STUDY with RBCs CPT CODE: 37650 INDICATION: Gastrointestinal Bleeding PROTOCOL: 28.4 mCi of [...] Bahman Conroy Verified Date/Time: 07/07/2021 12:49:47 POCT-GLUCOSE [id number] 12:10:46 Test Item Value Reference Range Interpretation Comments POC-GLUCOSE METER 168 mg/dL 70-110 H : TESTED A T [address] (BEAKER) (test code [address], = 1538) [facility] 77 478: Bomb Squad Commander/Techni unique ID = [id number] for Meme Buckner COMPREHENSIVE METABOLIC [id number] 07:13:02 Test Item Value Reference Range Interpretation [...] S NOT APPLICABLE FOR DIALYSIS PATIEN TS. Bomb Squad Commander ID - LITOOperator ID - LITOOperator ID - LITOOperator ID - LITOOperator ID - LITOOperator ID - LITOOperator ID - LITOOperator ID - LITOOperator ID - LITOOperator ID - LITOOperator ID - LITOOperator ID - LITOOperator ID - LITOOperator ID - LITOOperator ID - LITOOperator ID - [id number] 07:08:35 Test Item Value Reference Range Interpretation Comments MAGNESIUM (BEAKER) (test code = 2.0 mg/dL 1.5-3.0 627) Bomb Squad Commander ID - LITOOperator ID - LITOOperator ID - LITOOperator ID - LITOCBC W/PLT COUNT & AUTO [id number] 06:56:12 Test Item Value Reference Range Interpretation [...] PERCENT (BEAKER) (test code = 2801) POCT-GLUCOSE [id number] 06:52:19 Test Item Value Reference Range Interpretation Comments POC-GLUCOSE METER 206 mg/dL 70-110 H : TESTED A T [address] (BEAKER) (test code [address], = 1538) [place] [address]: Bomb Squad Commander/Techni unique ID = [id number] for Elizabeth Joshua POCT-GLUCOSE [id number] 23:49:27 Test Item Value Reference Range Interpretation Comments POC-GLUCOSE METER 140 mg/dL 70-110 H : TESTED A T [address] (BEAKER) (test code [address], = 1538) [place] [address]: Bomb Squad Commander/Techni unique ID = [id number] for Raegan Vicentery David ABOR, [id number] 17:58:00 Test Item Value Reference Range Interpretation Comments ABO Grouping (test code O PINK TOP 07/06/21 @ 1728 = 2588) Rh Factor (test code = POS PINK TOP 07/06/21 @ 1728 2589) [facility], [id number] 17:58:00 Test Item Value Reference Range Interpretation Comments ABO Grouping (test code O PINK TOP 07/06/21 @ 1728 = 2588) Rh Factor (test code = POS PINK TOP 07/06/21 @ 1728 2589) [facility], [id number] 17:58:00 Test Item Value Reference Range Interpretation Comments ABO Grouping (test code O PINK TOP 07/06/21 @ 1728 = 2588) Rh Factor (test code = POS PINK TOP 07/06/21 @ 1728 2589) [facility], [id number] 17:20:00 Test Item Value Reference Range Interpretation Comments ABO/RH AUTOMATED (BEAKER) (test O POSITIVE echo code = 2260) Ab Scrn (test code = 890-4) NEGATIVE echo [facility], [id number] 17:20:00 Test Item Value Reference Range Interpretation Comments ABO/RH AUTOMATED (BEAKER) (test O POSITIVE echo code = 2260) Ab Scrn (test code = 890-4) NEGATIVE echo [facility], [id number] 17:20:00 Test Item Value Reference Range Interpretation Comments ABO/RH AUTOMATED (BEAKER) (test O POSITIVE echo code = 2260) Ab Scrn (test code = 890-4) NEGATIVE echo [facility] [id number] 16:45:28 Test Item Value Reference Range Interpretation Comments POC-GLUCOSE METER 212 mg/dL 70-110 H : Notified RN/MD: TESTED (BEAKER) (test code AT [address] = 1538) [facility] [address]: Bomb Squad Commander/Techni unique ID = [id number] for Ezek iel, Erika Manual [id number] 15:09:27 Test Item Value Reference Range Interpretation Comments % Neutros (manual) (test 92 % code = 1359) % Lymphs (manual) (test 7 % code = 1360) % Metamyelo (manual) 1 % 0-0 H (test code = 258) # Neutros (manual) (test 6.35 See_Comment [A utomated message] code = 1365) The system Screen Fix Gibson generated this result transmitted ref erence range: 1.80 - 8 .00 K/L. The refe rence range was not u sed to interpret this result as normal/abnor mal. # Lymphs (manual) (test 0.48 See_Comment L [Au tomated message] code = 1366) The system Screen Fix Gibson generated this result transmitted ref erence range: [...] [A utomated message] = 1353) The system Screen Fix Gibson generated this result transmitted ref erence range: 0 - 0 /1 00 WBC. The refere nce range was not u sed to interpret this result as normal/abnor mal. WBC Morphology (test Normal code = 487) Platelet Morphology Normal (test code = 486) RBC Morphology (test Normal code = 762) Lab Interpretation (test Abnormal code = 02136-3) [facility] [id number] 15:09:27 Test Item Value Reference Range Interpretation Comments % Neutros (manual) (test 92 % code = 1359) % Lymphs (manual) (test 7 % code = 1360) % Metamyelo (manual) 1 % 0-0 H (test code = 258) # Neutros (manual) (test 6.35 See_Comment [A utomated message] code = 1365) The system Screen Fix Gibson generated this result transmitted ref erence range: 1.80 - 8 .00 K/L. The refe rence range was not u sed to interpret this result as normal/abnor mal. # Lymphs (manual) (test 0.48 See_Comment L [Au tomated message] code = 1366) The system Screen Fix Gibson generated this result transmitted ref erence range: [...] [A utomated message] = 1353) The system Screen Fix Gibson generated this result transmitted ref erence range: 0 - 0 /1 00 WBC. The refere nce range was not u sed to interpret this result as normal/abnor mal. WBC Morphology (test Normal code = 487) Platelet Morphology Normal (test code = 486) RBC Morphology (test Normal code = 762) Lab Interpretation (test Abnormal code = 70755-1) [facility] [id number] 15:09:27 Test Item Value Reference Range Interpretation Comments % Neutros (manual) (test 92 % code = 1359) % Lymphs (manual) (test 7 % code = 1360) % Metamyelo (manual) 1 % 0-0 H (test code = 258) # Neutros (manual) (test 6.35 See_Comment [A utomated message] code = 1365) The system Screen Fix Gibson generated this result transmitted ref erence range: 1.80 - 8 .00 K/L. The refe rence range was not u sed to interpret this result as normal/abnor mal. # Lymphs (manual) (test 0.48 See_Comment L [Au tomated message] code = 1366) The system Screen Fix Gibson generated this result transmitted ref erence range: [...] [A utomated message] = 1353) The system Screen Fix Gibson generated this result transmitted ref erence range: 0 - 0 /1 00 WBC. The refere nce range was not u sed to interpret this result as normal/abnor mal. WBC Morphology (test Normal code = 487) Platelet Morphology Normal (test code = 486) RBC Morphology (test Normal code = 762) Lab Interpretation (test Abnormal code = 62371-1) [facility] W/PLT COUNT & AUTO [id number] 15:09:27 Test Item Value Reference Range Interpretation [...] (test code Normal = 762) COMPREHENSIVE METABOLIC [id number] 13:56:55 Test Item Value Reference Range Interpretation [...] S NOT APPLICABLE FOR DIALYSIS PATIEN TS. Bomb Squad Commander ID - ACONTEHOperator ID - ACONTEHOperator ID - ACONTEHOperator ID - ACONTEHOperator ID - ACONTEHOperator ID - ACONTEHOperator ID - ACONTEHOperator ID - ACONTEHOperator ID - ACONTEHOperator ID - ACONTEHOperator ID - ACONTEHOperator ID - ACONTEHOperator ID - ACONTEHOperator ID - ACONTEHOperatorID - ACONTEHOperator ID - [id number] 13:53:54 Test Item Value Reference Range Interpretation Comments MAGNESIUM (BEAKER) (test code = 2.1 mg/dL 1.5-3.0 627) Bomb Squad Commander ID - ACONTEHOperator ID - ACONTEHOperator ID - ACONTEHOperator ID - ACONTEHPOCT-GLUCOSE [id number] 13:04:56 Test Item Value Reference Range Interpretation Comments POC-GLUCOSE METER 223 mg/dL 70-110 H : Notified RN/MD: TESTED (VIKRAM) (test code AT [facility] [address] = 1538) [facility] [address]: Bomb Squad Commander/Techni unique ID = [id number] for Ezek iel, Erika RAD, CHEST, 1 VIEW, NON [id number] 09:59:00Reason for exam:->covid pnaShould this be performed at the bedside?->Yes [facility] : 1950 Sex: FFINAL REPORT [...] Perez Verified Date/Time: 07/06/2021 09:59:51 Reading Location: [facility] Radiology Reading Room POCT-GLUCOSE [id number] 06:43:25 Test Item Value Reference Range Interpretation Comments POC-GLUCOSE METER 200 mg/dL 70-110 H : TESTED A T [facility] 131 ([facility]) (test code [facility], = 1538) [place] [address]: Bomb Squad Commander/Techni unique ID = [id number] for Elizabeth Joshua POCT-GLUCOSE [id number] 16:15:23 Test Item Value Reference Range Interpretation Comments POC-GLUCOSE METER 318 mg/dL 70-110 H : Notified RN/MD: TESTED ([facility]) (test code AT [facility] [address] = 1538) [place] [address]: Bomb Squad Commander/Techni unique ID = [id number] for Ezek iel, Erika POCT-GLUCOSE [id number] 12:25:37 Test Item Value Reference Range Interpretation Comments POC-GLUCOSE METER 213 mg/dL 70-110 H : Notified RN/MD: TESTED ([facility]) (test code AT [facility] [address] = 1538) [place] [address]: Bomb Squad Commander/Techni unique ID = [id number] for Ezek iel, Erika POCT-GLUCOSE [id number] 06:53:05 Test Item Value Reference Range Interpretation Comments POC-GLUCOSE METER 177 mg/dL 70-110 H : Notified RN/MD: TESTED ([facility]) (test code AT [facility] [address] [place] [address] = 1538) [place] [address]: Bomb Squad Commander/Techni unique ID = [id number] for Nimesh Jones si COMPREHENSIVE METABOLIC [id number] 05:51:50 Test Item Value Reference Range Interpretation [...] S NOT APPLICABLE FOR DIALYSIS PATIEN TS. Bomb Squad Commander ID - [id number] ID - [id number] ID - [id number] ID - [id number] ID - [id number] ID - [id number] ID - [id number] ID - [id number] ID - [id number] ID - [id number] ID - [id number] ID - [id number] ID - [id number] ID - [id number] ID - [id number] ID - [id number] W/PLT COUNT & AUTO [id number] 05:50:47 Test Item Value Reference Range Interpretation [...] H PERCENT (BEAKER) (test code = 2801) [id number] 05:43:09 Test Item Value Reference Range Interpretation Comments MAGNESIUM (BEAKER) (test code = 2.3 mg/dL 1.5-3.0 627) Bomb Squad Commander ID - [id number] ID - [id number] ID - [id number] ID - [id number](MANUAL DIFFERENTIAL)2021-07-04 21:10:33 Test Item Value Reference Range [...] = 762) CBC W/PLT COUNT & AUTO [id number] 21:10:32 Test Item Value Reference Range Interpretation [...] 0-0 H (test code = 413) POCT-GLUCOSE [id number] 20:24:31 Test Item Value Reference Range Interpretation Comments POC-GLUCOSE METER 221 mg/dL 70-110 H : Notified RN/MD: TESTED ([facility]) (test code AT [facility] [address] [address] = 1538) [place] [address]: Bomb Squad Commander/Techni unique ID = [id number] for Rupert oscar Asya POCT-GLUCOSE [id number] 16:30:17 Test Item Value Reference Range Interpretation Comments POC-GLUCOSE METER 279 mg/dL 70-110 H : Notified RN/MD: TESTED ([facility]) (test code AT [facility] [address] = 1538) [place] [address]: Bomb Squad Commander/Techni unique ID = [id number] for Erika Dc POCT-GLUCOSE [id number] 11:53:19 Test Item Value Reference Range Interpretation Comments POC-GLUCOSE METER 235 mg/dL 70-110 H : Notified RN/MD: TESTED ([facility]) (test code AT [facility] [address] = 1538) [facility] [address]: Bomb Squad Commander/Techni unique ID = [id number] for Erika Dc [id number] 05:58:15 Test Item Value Reference Range Interpretation Comments MAGNESIUM (BEAKER) (test code = 1.6 mg/dL 1.5-3.0 627) Bomb Squad Commander ID - LITOOperator ID - LITOOperator ID - LITOOperator ID - LITOC- Reactive [id number] 05:57:52 Test Item Value Reference Range Interpretation Comments CRP (test code = 676) 1.16 mg/dL 0.00-0.50 H LINDY (test code = LINDY) Bomb Squad Commander ID - FLORENCIO Lab Interpretation (test Abnormal code = 93492-5) [facility] [id number] 05:57:52 Test Item Value Reference Range Interpretation Comments CRP (test code = 676) 1.16 mg/dL 0.00-0.50 H LINDY (test code = LINDY) Bomb Squad Commander ID - FLORENCIO Lab Interpretation (test Abnormal code = 03990-4) [facility] Fatfwej9092-24-89 05:57:52 Test Item Value Reference Range Interpretation Comments CRP (test code = 676) 1.16 mg/dL 0.00-0.50 H LINDY (test code = LINDY) Bomb Squad Commander ID - FLORENCIO Lab Interpretation (test Abnormal code = 96206-3) [facility] [id number] 05:57:52 Test Item Value Reference Range Interpretation Comments C-REACTIVE PROTEIN (BEAKER) (test 1.16 mg/dL 0.00-0.50 H code = 676) Bomb Squad Commander ID - LITOBasic Metabolic [id number] 05:57:46 Test Item Value Reference Range Interpretation Comments Sodium (test code = 138 meq/L 021-787 2795-2) Potassium (test code 2.9 meq/L 3.6-5.5 L = 2823-3) Chloride (test code = 108 meq/L 98-106 H 2075-0) CO2 (test code = 20 meq/L -8-9) BUN (test code = 18 mg/dL 08-07 3094-0) Creatinine (test code 0.72 mg/dL 0.50-1.20 = 2160-0) Glucose (test code = 261 mg/dL 70-110 H 2345-7) Calcium (test code = 7.9 mg/dL 8.5-10.5 L 04807-8) EGFR (test code = 97 mL/min/1.[place] [address]-9) m NOT ACCURATE CREATININE CLEARANCE IN PREDICTING GLOMERULAR FILTRATION RATE . ESTIMATED GFR I S NOT APPLICABLE FOR DIALYSIS PATIENTS. LINDY (test code = LINDY) Bomb Squad Commander ID - LITOOperator ID - LITOOperator ID - LITOOperator ID - LITOOperator ID - LITOOperator ID - LITOOperator ID - LITOOperator ID - LITOOperator ID - LITOOperator ID - FLORENCIO Lab Interpretation Abnormal (test code = 75192-3) [facility] Metabolic [id number] 05:57:46 Test Item Value Reference Range Interpretation Comments Sodium (test code = 138 meq/L 519-336 1224-2) Potassium (test code 2.9 meq/L 3.6-5.5 L = 2823-3) Chloride (test code = 108 meq/L 98-106 H 5-0) CO2 (test code = 20 meq/L -29 8-9) BUN (test code = 18 mg/dL 08-07 3094-0) Creatinine (test code 0.72 mg/dL 0.50-1.20 = 2160-0) Glucose (test code = 261 mg/dL 70-110 H 2345-7) Calcium (test code = 7.9 mg/dL 8.5-10.5 L 39515-8) EGFR (test code = 97 mL/min/1.[place] [address]-5) m NOT ACCURATE CREATININE CLEARANCE IN PREDICTING GLOMERULAR FILTRATION RATE . ESTIMATED GFR I S NOT APPLICABLE FOR DIALYSIS PATIENTS. LINDY (test code = LINDY) Bomb Squad Commander ID - LITOOperator ID - LITOOperator ID - LITOOperator ID - LITOOperator ID - LITOOperator ID - LITOOperator ID - LITOOperator ID - LITOOperator ID - LITOOperator ID - FLORENCIO Lab Interpretation Abnormal (test code = 49980-7) [facility] Metabolic [id number] 05:57:46 Test Item Value Reference Range Interpretation Comments Sodium (test code = 138 meq/L 406-738 4229-2) Potassium (test code 2.9 meq/L 3.6-5.5 L = 2823-3) Chloride (test code = 108 meq/L 98-106 H 2075-0) CO2 (test code = 20 meq/L -8-9) BUN (test code = 18 mg/dL - 3094-0) Creatinine (test code 0.72 mg/dL 0.50-1.20 = 2160-0) Glucose (test code = 261 mg/dL 70-110 H 2345-7) Calcium (test code = 7.9 mg/dL 8.5-10.5 L 76075-4) EGFR (test code = 97 mL/min/1.[place] [address]-0) m NOT ACCURATE CREATININE CLEARANCE IN PREDICTING GLOMERULAR FILTRATION RATE . ESTIMATED GFR I S NOT APPLICABLE FOR DIALYSIS PATIENTS. LINDY (test code = LINDY) Bomb Squad Commander ID - LITOOperator ID - LITOOperator ID - LITOOperator ID - LITOOperator ID - LITOOperator ID - LITOOperator ID - LITOOperator ID - LITOOperator ID - LITOOperator ID - FLORENCIO Lab Interpretation Abnormal (test code = 04647-6) [facility] METABOLIC [id number] 05:57:46 Test Item Value Reference Range Interpretation Comments SODIUM (BEAKER) 138 meq/L 135-148 (test code = 381) POTASSIUM (BEAKER) 2.9 meq/L 3.6-5.5 L (test code = 379) CHLORIDE (BEAKER) 108 meq/L 98-106 H (test code = 382) CO2 (BEAKER) (test 20 meq/L code = 355) BLOOD UREA NITROGEN 18 mg/dL 08-07 (BEAKER) (test code = 354) CREATININE (BEAKER) [...] S NOT APPLICABLE FOR DIALYSIS PATIEN TS. Bomb Squad Commander ID - LITOOperator ID - LITOOperator ID - LITOOperator ID - LITOOperator ID - LITOOperator ID - LITOOperator ID - LITOOperator ID - LITOOperator ID - LITOOperator ID - LITOCBC W/PLT COUNT & AUTO [id number] 05:39:45 Test Item Value Reference Range Interpretation [...] H PERCENT (BEAKER) (test code = 2801) [id number] 05:35:53 Test Item Value Reference Range Interpretation Comments D-Dimer, Quant (test 3.03 See_Comment H Final I nformation code = 08376-9) (Auto Output ) [Automated message] The system which generated this result transmitted reference range : <0.50 MG/L FEU. The reference range was not used to interpr et this result as normal/abnormal . LINDY (test code = REGARDING D-DIMER LINDY) RESULTS: The 98% NPV (Negative Predictive Value) for DVT/PE exclusion is 0.50 mg/L FEU as suggested by the wood sash and frame carpenter and as approved by the FDA. Lab Interpretation Abnormal (test code = 97361-7) [facility]iguj7591-06-14 05:35:53 Test Item Value Reference Range Interpretation Comments D-Dimer, Quant (test 3.03 See_Comment H Final I nformation code = 76703-5) (Auto Output ) [Automated message] The system which generated this result transmitted reference range : <0.50 MG/L FEU. The reference range was not used to interpr et this result as normal/abnormal . LINDY (test code = REGARDING D-DIMER LINDY) RESULTS: The 98% NPV (Negative Predictive Value) for DVT/PE exclusion is 0.50 mg/L FEU as suggested by the wood sash and frame carpenter and as approved by the FDA. Lab Interpretation Abnormal (test code = 16968-3) [id number] Test Item Value Reference Range Interpretation Comments D-Dimer, Quant (test 3.03 See_Comment H Final I nformation code = 13232-2) (Auto Output ) [Automated message] The system which generated this result transmitted reference range : <0.50 MG/L FEU. The reference range was not used to interpr et this result as normal/abnormal . LINDY (test code = REGARDING D-DIMER LINDY) RESULTS: The 98% NPV (Negative Predictive Value) for DVT/PE exclusion is 0.50 mg/L FEU as suggested by the wood sash and frame carpenter and as approved by the FDA. Lab Interpretation Abnormal (test code = 41369-4) [id number] 05:35:53 Test Item Value Reference Range Interpretation Comments D-DIMER QUANTITATIVE 3.03 MG/L FEU <0.50 H Final Information (HANSAKER) (test code = (Auto Output) 671) REGARDING D-DIMER RESULTS: The 98% NPV (Negative Predictive Value) for DVT/PE exclusion is 0.50 mg/LFEU as suggested by the wood sash and frame carpenter and as approved by the FDA.POCT-GLUCOSE [id number] 04:52:50 Test Item Value Reference Range Interpretation Comments POC-GLUCOSE METER 242 mg/dL 70-110 H : TESTED A T [facility] 1317 ([facility]) (test code [facility], = 1538) [place] [address]: Bomb Squad Commander/Techni unique ID = [id number] for Di Kolb POCT-GLUCOSE [id number] 20:19:15 Test Item Value Reference Range Interpretation Comments POC-GLUCOSE METER 337 mg/dL 70-110 H : Notified RN/MD: TESTED ([facility]) (test code AT [facility] [address] = 1538) [place] [address]: Bomb Squad Commander/Techni unique ID = [id number] for Di Kolb POCT-GLUCOSE [id number] 16:27:26 Test Item Value Reference Range Interpretation Comments POC-GLUCOSE METER 257 mg/dL 70-110 H : Notified RN/MD: TESTED ([facility]) (test code AT [facility] [address] = 1538) [place] [address]: Bomb Squad Commander/Techni unique ID = [id number] for Ezek iel, Erika POCT-GLUCOSE [id number] 12:39:48 Test Item Value Reference Range Interpretation Comments POC-GLUCOSE METER 187 mg/dL 70-110 H : Notified RN/MD: TESTED (VIKRAM) (test code AT [facility] [address] = 1538) [place], [facility] [address]: Bomb Squad Commander/Techni unique ID = [id number] for Ezek iel, Erika RAD, CHEST, 1 VIEW, NON [id number] 07:37:00Reason for exam:- >pneumoniaShould this be performed at the bedside?->Yes [facility] : 1950 Sex: FFINAL REPORT Chest AP portable semierect Comparison exam: 06/30/2021 History provided: Pneumonia, COVID positive Heart size magnified by projection. Bilateral airspace disease predominating peripherally and at the bases persists consistent with COVID 19 infection. Signed: [facility] Verified Date/Time: 07/03/2021 07:37:18 Reading Location: [facility] Radiology Reading Room POCT-GLUCOSE [id number] 06:33:31 Test Item Value Reference Range Interpretation Comments POC-GLUCOSE METER 286 mg/dL 70-110 H : TESTED A T [facility] 1317 ([facility]) (test code [address] [facility], = 1538) [facility] [address]: Bomb Squad Commander/Techni unique ID = [id number] for Elizabeth Joshua POCT-GLUCOSE [id number] 21:14:22 Test Item Value Reference Range Interpretation Comments POC-GLUCOSE METER 299 mg/dL 70-110 H : TESTED A T [facility] [address] (BEAKER) (test code [address], = 1538) [facility] [address]: Bomb Squad Commander/Techni unique ID = [id number] for Elizabeth Joshua POCT-GLUCOSE [id number] 15:31:54 Test Item Value Reference Range Interpretation Comments POC-GLUCOSE METER 287 mg/dL 70-110 H : TESTED A T [facility] [address] (BEAKER) (test code [address], = 1538) [facility] [address]: Bomb Squad Commander/Techni unique ID = [id number] for Cerv antes, Crystal POCT-GLUCOSE [id number] 12:06:10 Test Item Value Reference Range Interpretation Comments POC-GLUCOSE METER 259 mg/dL 70-110 H : TESTED A T [facility] [address] (BEAKER) (test code [address], = 1538) [place] [address]: Bomb Squad Commander/Techni unique ID = [id number] for Cerv antes, Crystal CT, CHEST WITH IV CONTRAST- PE TEST [id number] 11:13:00Unlisted Reason for Exam - Click Yes and Enter Reason Below->No [facility] : 1950 Sex: FFINAL [...] MDReport Verified Date/Time: 07/02/2021 11:13:24 Reading Location: [facility] Radiology Reading Room POCT-GLUCOSE [id number] 09:06:02 Test Item Value Reference Range Interpretation Comments POC-GLUCOSE METER 297 mg/dL 70-110 H : TESTED A T [facility] 1317 (BEAKER) (test code [address], = 1538) [facility] 77 [address]: Bomb Squad Commander/Techni unique ID = [id number] for Brow n, Elizabeth POCT-GLUCOSE [id number] 21:42:04 Test Item Value Reference Range Interpretation Comments POC-GLUCOSE METER 300 mg/dL 70-110 H : TESTED A T [facility] [address] (BEAKER) (test code [address], = 1538) [facility] 77 [address]: Bomb Squad Commander/Techni unique ID = [id number] for Elizabeth Joshua POCT-GLUCOSE [id number] 16:47:29 Test Item Value Reference Range Interpretation Comments POC-GLUCOSE METER 179 mg/dL 70-110 H : TESTED A T [facility] [address] (BEAKER) (test code [address], = 1538) [facility] [address]: Bomb Squad Commander/Techni unique ID = [id number] for Alma Dove VENOUS DOPPLER LEGS, [id number] 12:41:00Reason for exam:->positive d dimerGRE[facility] : 1950 Sex: FFINAL [...] Song Verified Date/Time: 07/01/2021 12:41:57 Reading Location: [address] Consult Reading Room CBC W/PLT COUNT & AUTO [id number] 12:17:11 Test Item Value Reference Range Interpretation [...] (BEAKER) (test code Normal = 762) POCT-GLUCOSE [id number] 11:55:02 Test Item Value Reference Range Interpretation Comments POC-GLUCOSE METER 300 mg/dL 70-110 H : TESTED A T [facility] (BEAKER) (test code [facility] [address], = 1538) [facility] [address]: Bomb Squad Commander/Techni unique ID = [id number] for Alma Dove COMPREHENSIVE METABOLIC [id number] 10:34:18 Test Item Value Reference Range Interpretation [...] 358) GLUCOSE RANDOM 354 mg/dL 70-110 H (SverhmarketAKER) (test code = 652) CALCIUM (BEAKER) 8.7 mg/dL 8.5-10.5 (test code = 697) AST (SGOT) (BEAKER) 18 U/L 5-40 (test code = 353) ALT (SGPT) (SverhmarketAKER) 49 U/L 5-50 (test code = 347) EGFR (SverhmarketAKER) (test 80 mL/min/1.73 ESTIMA LOS GFR IS code = 1092) sq m NOT ACCURATE CREATININE CLEARANCE IN PREDICTING GLOMERULAR FILTRATION RATE . ESTIMATED GFR I S NOT APPLICABLE FOR DIALYSIS PATIEN TS. Bomb Squad Commander ID - [id number] ID - jnbl66Dkendglj ID - pgtf50Paxajvgp ID - ccap13Bxuouluk ID - bfsm78Gijofzkm ID - qabl37Ifabbhpg ID - jvqe32Tddylshq ID - exxf06Krbkgotl ID - lqvg60Fguixfln ID - alrt04Puarwxde ID - xqto53Secqgbvg ID - upkq47Nvawpzdf ID - uckq15Dcmqmfih ID - euht22Paqaayxu ID - jbac53Ztuolbpi ID - yqon34Sqruqfpa ID - gsrm91Dasobyow ID - qwqo83Bvrvwgse ID - aqpo82J-NKJPRNPH [id number] 10:26:23 Test Item Value Reference Range Interpretation Comments C-REACTIVE PROTEIN (Antavo) (test 0.89 mg/dL 0.00-0.50 H code = 676) Bomb Squad Commander ID - tsmz86M-[id number] 10:24:05 Test Item Value Reference Range Interpretation Comments D-DIMER QUANTITATIVE 3.37 MG/L FEU <0.50 H Final Information (Antavo) (test code = (Auto Output) 671) REGARDING D-DIMER RESULTS: The 98% NPV (Negative Predictive Value) for DVT/PE exclusion is 0.50 mg/LFEU as suggested by the wood sash and frame carpenter and as approved by the FDA.POCT-GLUCOSE [id number] 06:44:39 Test Item Value Reference Range Interpretation Comments POC-GLUCOSE METER 275 mg/dL 70-110 H : TESTED A T [facility] [address] (Antavo) (test code [address], = 1538) [place] [id number]: Bomb Squad Commander/Techni unique ID = [id number] for Elizabeth Joshua POCT-GLUCOSE [id number] 21:22:38 Test Item Value Reference Range Interpretation Comments POC-GLUCOSE METER 425 mg/dL 70-110 HH : Notified RN/MD: TESTED ([facility]) (test code AT [facility] [address] = 1538) [place] [id number]: Bomb Squad Commander/Techni unique ID = [id number] for Elizabeth Joshua POCT-GLUCOSE [id number] 16:28:18 Test Item Value Reference Range Interpretation Comments POC-GLUCOSE METER 432 mg/dL 70-110 HH : Notified RN/MD: [facility] (test code AT [facility] [address] = 1538) [place] [address]: Bomb Squad Commander/Techni unique ID = [id number] for Abhinav Mccaincielo POCT-GLUCOSE [id number] 11:49:50 Test Item Value Reference Range Interpretation Comments POC-GLUCOSE METER 376 mg/dL 70-110 H : [facility]) (test code [address] [facility], = 1538) [place] [address]: Bomb Squad Commander/Techni unique ID = [id number] for Dino amaro Alma RAD, CHEST, 1 VIEW, NON [id number] 09:25:00Reason for exam:- >pneumoniaShould this be performed at the bedside?->Yes [facility] LATIABRYANFREDDIE : 1950 Sex: FFINAL REPORT RAD, CHEST, 1 VIEW, NON DEPT INDICATION: pneumonia COMPARISON: 06/29/2021 FINDINGS: Portable frontal view of the chest. IMPRESSION: Support Lines: None Lungs and pleura: Unchanged bibasilar airspace disease No significant pneumothorax. Heart and mediastinum: Stable contours. Additional findings: None. Signed: Lydia Tapia MDReport Verified Date/Time: 06/30/2021 09:25:48 Reading Location: [address] Neuro Reading Room POCT-GLUCOSE METER 2021-06-30 06:32:32 Test Item Value Reference Range Interpretation Comments POC-GLUCOSE METER 327 mg/dL 70-110 H : Notified RN/MD: TESTED (BEAKER) (test code AT [facility] [address] = 1538) [place] [facility] [address]: Bomb Squad Commander/Techni unique ID = [id number] for Jeet Estesisha COMPREHENSIVE METABOLIC [id number] 05:27:30 Test Item Value Reference Range Interpretation [...] S NOT APPLICABLE FOR DIALYSIS PATIEN TS. Bomb Squad Commander ID - [id number] ID - [id number] ID - CQRE55Hmxuulrh ID - LILG67Hydgxbqy ID - LONQ74Rgztflvq ID - FJZK93Ahwvgybc ID - FJEL25Wznrrxqy ID - FMLF48Xylpnwkh ID - ENJW71Amjjsfht ID - ZGEF48Qyicgzb function [id number] 05:27:10 Test Item Value Reference Range Interpretation Comments Protein, Total (test 4.5 See_Comment L [Autom ated code = 2885-2) message] The system which generated this result transmit los reference range : 6.0 - 8.5 gm/dL . The reference range was not u sed to interpret th is result as normal/abnormal . Albumin (test code = 2.5 g/dL 3.5-5.0 L 74745-1) Total Bilirubin (test 0.4 mg/dL 0.1-1.2 code = 1975-2) Bilirubin, Direct 0.2 mg/dL 0.0-0.4 (test code = 1968-7) Alkaline Phosphatase 39 U/L 30-115 (test code = 6768-6) AST (test code = 23 U/L 5-40 1920-8) ALT (test code = 50 U/L 5-50 1742-6) LINDY (test code = LINDY) Bomb Squad Commander ID - [id number] ID - FWII02Anvzkgju ID - KHHO33Dfvflotu ID - OYPJ97Wvhaknrr ID - ZDXY71Vxlexidn ID - URDS02Pyiyfmau ID - [id number] Lab Interpretation Abnormal (test code = 12323-0) [facility]Hep[facility] function [id number] 05:27:10 Test Item Value Reference Range Interpretation Comments Protein, Total (test 4.5 See_Comment L [Autom ated code = 2885-2) message] The system which generated this result transmit los reference range : 6.0 - 8.5 gm/dL . The reference range was not u sed to interpret th is result as normal/abnormal . Albumin (test code = 2.5 g/dL 3.5-5.0 L 22417-5) Total Bilirubin (test 0.4 mg/dL 0.1-1.2 code = 1974-) Bilirubin, Direct 0.2 mg/dL 0.0-0.4 (test code = 1967-) Alkaline Phosphatase 39 U/L 30-115 (test code = 6768-6) AST (test code = 23 U/L 40 192-8) ALT (test code = 50 U/L 50 174-6) LINDY (test code = LINDY) Bomb Squad Commander ID - [id number] ID - ZGMK70Piocuyvq ID - BFCE50Usekspoa ID - AYLZ97Flrbzjor ID - WKCP73Pxetnydy ID - CIJD79Vryujyem ID - [id number] Lab Interpretation Abnormal (test code = 93156-6) [facility]Hep[facility] function [id number] 05:27:10 Test Item Value Reference Range Interpretation Comments Protein, Total (test 4.5 See_Comment L [Autom ated code = 2885-2) message] The system which generated this result transmit los reference range : 6.0 - 8.5 gm/dL . The reference range was not u sed to interpret th is result as normal/abnormal . Albumin (test code = 2.5 g/dL 3.5-5.0 L 75011-5) Total Bilirubin (test 0.4 mg/dL 0.1-1.2 code = 1974-11) Bilirubin, Direct 0.2 mg/dL 0.0-0.4 (test code = 1967-) Alkaline Phosphatase 39 U/L 30-115 (test code = 6768-6) AST (test code = 23 U/L 5-40 1920-8) ALT (test code = 50 U/L 550 1742-6) LINDY (test code = LINDY) Bomb Squad Commander ID - [id number] ID - KKPR31Nfdoossv ID - GVDB36Mrwtvdgf ID - NZJU00Wlvjqpgh ID - SJHQ54Pdctmiml ID - ZNRV43Yjvtgkbp ID - [id number] Lab Interpretation Abnormal (test code = 69357-7) [facility] HospitalHEPATIC FUNCTION [id number] 05:27:10 Test Item Value Reference Range Interpretation [...] (test code = 50 U/L 5-50 347) Bomb Squad Commander ID - [id number] ID - BVSB47Hxysfvho ID - BQSY51Escgenpm ID - HGKG82Gvefytvy ID - PEVC41Mtayiamz ID - IYBL02Fsynurad ID - CIDP76Qoxhb panel 2021-06-30 05:27:05 Test Item Value Reference Range Interpretation Comments Triglycerides (test 172 mg/dL code = 2571-8) Cholesterol (test code 157 mg/dL = 3-3) HDL (test code = 27 mg/dL 2085-06) LDL Calculated (test 96 mg/dL code = 99663-5) LINDY (test code = LINDY) Triglyceride Reference Range: Low Risk <150 Borderline 150-199 High Risk 200-499 Very High Risk >=500 Cholesterol Reference Range: Low Risk <200 Borderline 200-239 High Risk >240 HDL Cholesterol Reference Range: Low Risk >=60 High Risk <40 LDL Cholesterol Reference Range: Optimal <100 Near Optimal 100-129 Borderline 130-159 High 160-189 Very High >=190 Bomb Squad Commander ID - [id number] ID - EJAM36Tzuvlkyi ID - [id number] [facility] HospitalLipid eugbw0991-21-19 05:27:05 Test Item Value Reference Range Interpretation Comments Triglycerides (test 172 mg/dL code = 2571-8) Cholesterol (test code 157 mg/dL = 2093-3) HDL (test code = 27 mg/dL 2085-06) LDL Calculated (test 96 mg/dL code = 22198-9) LINDY (test code = LINDY) Triglyceride Reference Range: Low Risk <150 Borderline 150-199 High Risk 200-499 Very High Risk >=500 Cholesterol Reference Range: Low Risk <200 Borderline 200-239 High Risk >240 HDL Cholesterol Reference Range: Low Risk >=60 High Risk <40 LDL Cholesterol Reference Range: Optimal <100 Near Optimal 100-129 Borderline 130-159 High 160-189 Very High >=190 Bomb Squad Commander ID - [id number] ID - NRDW93Zspmxsve ID - [id number] [facility] HospitalLipid vpwom2251-26-16 05:27:05 Test Item Value Reference Range Interpretation Comments Triglycerides (test 172 mg/dL code = 2571-8) Cholesterol (test code 157 mg/dL = 2093-3) HDL (test code = 27 mg/dL 2085-06) LDL Calculated (test 96 mg/dL code = 99551-8) LINDY (test code = LINDY) Triglyceride Reference Range: Low Risk <150 Borderline 150-199 High Risk 200-499 Very High Risk >=500 Cholesterol Reference Range: Low Risk <200 Borderline 200-239 High Risk >240 HDL Cholesterol Reference Range: Low Risk >=60 High Risk <40 LDL Cholesterol Reference Range: Optimal <100 Near Optimal 100-129 Borderline 130-159 High 160-189 Very High >=190 Bomb Squad Commander ID - [id number] ID - RJCY56Dfajejut ID - [id number] [facility] HospitalLIPID [id number] 05:27:05 Test Item Value Reference Range Interpretation [...] Borderline 130-159 High 160-189 Very High >=190 Bomb Squad Commander ID - [id number] ID - XVXK58Unqxogyu ID - JEWQ48IVAWQPBQW8148-66-17 05:26:48 Test Item Value Reference Range Interpretation Comments MAGNESIUM (BEAKER) (test code = 2.2 mg/dL 1.5-3.0 627) Bomb Squad Commander ID - [id number] ID - QBZB68Qvmxggqn ID - ROFO46Gjjoggaz ID - [id number] Prothrombin time/[id number] 05:10:20 Test Item Value Reference Interpretation Comments [...] valves. Lab Interpretation Normal (test code = 96191-7) [facility] HospitalProthrombin time/[id number] 05:10:20 Test Item Value Reference Interpretation Comments [...] normal/abnormal . LINDY (test code = RECOMMENDED ILNDY) COUMADIN/WARFARIN INR THERAPY RANGESSTANDARD DOSE: 2.0 - 3.0 Includes: PROPHYLAXIS for venous thrombosis, systemic embolization; TREATMENT for venous thrombosis and/or pulmonary embolus.HIGH RISK: Target INR is 2.5-3.5 for patients with mechanical heart valves. Lab Interpretation Normal (test code = 01131-3) [facility] HospitalProthrombin time/[id number] 05:10:20 Test Item Value Reference Interpretation Comments [...] valves. Lab Interpretation Normal (test code = 52519-2) [facility] HospitalPROTHROMBIN TIME/[id number] 05:10:20 Test Item Value Reference Range Interpretation Comments PROTIME (BEAKER) 11.0 seconds 9.3-12.0 Final Infor mation (test code = 759) (Auto Outp ut) INR (BEAKER) (test 0.99 See_Comment Final Inf ormation code = 370) (Auto Output) [Automated mess age] The system Screen Fix Gibson generated this result transmitted ref erence range: <=5.90. The reference range was not used to int erpret this result as normal/abnormal . RECOMMENDED COUMADIN/WARFARIN INR THERAPY RANGESSTANDARD DOSE: 2.0 - 3.0 Includes: PROPHYLAXIS for venous thrombosis, systemic embolization; TREATMENT for venous thrombosis and/or pulmonary embolus.HIGH RISK: Target INR is 2.5-3.5 for patients with mechanical heart valves.CBC W/PLT COUNT & AUTO [id number] 04:55:57 Test Item Value Reference Range Interpretation [...] PERCENT (BEAKER) (test code = 2801) POCT-GLUCOSE [id number] 19:32:11 Test Item Value Reference Range Interpretation Comments POC-GLUCOSE METER 296 mg/dL 70-110 H : Notified RN/MD: TESTED (BEAKER) (test code AT [facility] 1317 [facility] = 1538) [facility] [address]: Bomb Squad Commander/Techni unique ID = [id number] for Asya Estes Osmolality, uyycy8782-10-98 16:45:57 Test Item Value Reference Range Interpretation Comments Osmolality, Ur (test code 785 See_Comment [ Automated message] = 2695-5) The system Screen Fix Gibson generated this result transmitted ref erence range: 50-1,200 mOsm/kg mOsm/kg . The reference range was not used to int erpret this result as normal/abnormal . Lab Interpretation (test Normal code = 74290-6) [facility] HospitalOsmolality, [id number] 16:45:57 Test Item Value Reference Range Interpretation Comments Osmolality, Ur (test code 785 See_Comment [ Automated message] = 2695-5) The system Screen Fix Gibson generated this result transmitted ref erence range: 50-1,200 mOsm/kg mOsm/kg . The reference range was not used to int erpret this result as normal/abnormal . Lab Interpretation (test Normal code = 33515-9) [facility] HospitalOsmolality, [id number] 16:45:57 Test Item Value Reference Range Interpretation Comments Osmolality, Ur (test code 785 See_Comment [ Automated message] = 2695-5) The system Screen Fix Gibson generated this result transmitted ref erence range: 50-1,200 mOsm/kg mOsm/kg . The reference range was not used to int erpret this result as normal/abnormal . Lab Interpretation (test Normal code = 61324-3) [facility] HospitalOSMOLALITY, [id number] 16:45:57 Test Item Value Reference Range Interpretation Comments OSMOLALITY URINE 785 mOsm/kg See_Comment [Automated message] (BEAKER) (test code = The sy stem which 614) generated this result transmitted ref erence range: 50-1,200 mOsm/kg. The reference range was not used to int erpret this result as normal/abnormal . POCT-GLUCOSE [id number] 16:11:12 Test Item Value Reference Range Interpretation Comments POC-GLUCOSE METER 262 mg/dL 70-110 H : TESTED A T [facility] (BEAKER) (test code [address], = 1538) [place] [address]: Bomb Squad Commander/Techni unique ID = [id number] for Sawy er, Kyra C-REACTIVE [id number] 12:51:06 Test Item Value Reference Range Interpretation Comments C-REACTIVE PROTEIN (VIKRAM) (test 1.05 mg/dL 0.00-0.50 H code = 676) Bomb Squad Commander ID - CHJAVIUM-EZLUV1687-12-17 12:46:27 Test Item Value Reference Range Interpretation Comments D-DIMER QUANTITATIVE 0.40 MG/L FEU <0.50 Final Information ([facility]) (test code = (Auto Output) 671) REGARDING D-DIMER RESULTS: The 98% NPV (Negative Predictive Value) for DVT/PE exclusion is 0.50 mg/LFEU as suggested by the wood sash and frame carpenter and as approved by the FDA.POCT-GLUCOSE [id number] 11:18:02 Test Item Value Reference Range Interpretation Comments POC-GLUCOSE METER 280 mg/dL 70-110 H : TESTED A T [facility] (BEAKER) (test code [address], = 1538) [place] [address]: Bomb Squad Commander/Techni unique ID = [id number] for Sawy er, Kyra RAD, CHEST, 1 VIEW, NON [id number] 10:20:00Reason for exam:->COVID PneumoniaShould this be performed at the bedside?->Yes [facility] 1950 Sex: FFINAL REPORT [...] MDReport Verified Date/Time: 06/29/2021 10:20:49 Reading Location: [facility] Radiology Reading Room Urinalysis w/Swwqsdwohkt6485-49-60 10:08:29 Test Item Value Reference Range Interpretation Comments Color, UA (test code = Yellow 5778-6) Clarity, UA (test code Clear = 5767-9) Specific Neligh, UA >1.030 1.001-1.035 (test code = 5811-5) pH, UA (test code = 5.0 5.0-8.0 5803-2) Protein, UA (test code Trace Negative A = 26556-6) Glucose, UA (test code Negative Negative = 365) Ketones, UA (test code Trace Negative A = 2514-8) Bilirubin, UA (test Negative Negative code = 32571-2) Blood, UA (test code = Moderate Negative A 32468-6) Nitrite, UA (test code Negative Negative = 5802-4) Leukocytes, UA (test Small Negative A code = 5799-2) Urobilinogen, UA (test 0.2 mg/dL 0.2-1.0 code = 41660-8) Bacteria, UA (test code Occasional = 61137-5) Yeast (test code = Moderate 82056-8) RBC, UA (test code = <5 See_Comment [Autom ated message] 799-7) The system Screen Fix Gibson generated this result transmit los reference range : /HPF. The refer ence range was not u sed to interpret th is result as normal/abnormal . WBC, UA (test code = 10-20 See_Comment [Autom ated message] 10796-7) The system Screen Fix Gibson generated this result transmit los reference range : /HPF. The refer ence range was not u sed to interpret th is result as normal/abnormal . SQUAMOUS EPITHELIAL 5-10 See_Comment [Automa los message] (test code = 26343-4) The sy stem which generated this result transmit los reference range : /HPF. The refer ence range was not u sed to interpret th is result as normal/abnormal . Specimen Source (test code = 2795) Lab Interpretation Abnormal (test code = 35999-5) [facility] HospitalUrinalysis w/[id number] 10:08:29 Test Item Value Reference Range Interpretation Comments Color, UA (test code = Yellow 5778-6) Clarity, UA (test code Clear = 5767-9) Specific Neligh, UA >1.030 1.001-1.035 (test code = 5811-5) pH, UA (test code = 5.0 5.0-8.0 5803-2) Protein, UA (test code Trace Negative A = 28134-7) Glucose, UA (test code Negative Negative = 365) Ketones, UA (test code Trace Negative A = 2514-8) Bilirubin, UA (test Negative Negative code = 92224-4) Blood, UA (test code = Moderate Negative A 82463-7) Nitrite, UA (test code Negative Negative = 5802-4) Leukocytes, UA (test Small Negative A code = 5799-2) Urobilinogen, UA (test 0.2 mg/dL 0.2-1.0 code = 68667-1) Bacteria, UA (test code Occasional = 14404-7) Yeast (test code = Moderate 99341-8) RBC, UA (test code = <5 See_Comment [Autom ated message] 799-7) The system Screen Fix Gibson generated this result transmit los reference range : /HPF. The refer ence range was not u sed to interpret th is result as normal/abnormal . WBC, UA (test code = 10-20 See_Comment [Autom ated message] 79251-9) The system Screen Fix Gibson generated this result transmit los reference range : /HPF. The refer ence range was not u sed to interpret th is result as normal/abnormal . SQUAMOUS EPITHELIAL 5-10 See_Comment [Automa los message] (test code = 50652-9) The sy stem which generated this result transmit los reference range : /HPF. The refer ence range was not u sed to interpret th is result as normal/abnormal . Specimen Source (test code = 2795) Lab Interpretation Abnormal (test code = 02374-0) [facility]/[id number] 10:08:29 Test Item Value Reference Range Interpretation Comments Color, UA (test code = Yellow 5778-6) Clarity, UA (test code Clear = 5767-9) Specific Neligh, UA >1.030 1.001-1.035 (test code = 5811-5) pH, UA (test code = 5.0 5.0-8.0 5803-2) Protein, UA (test code Trace Negative A = 90331-2) Glucose, UA (test code Negative Negative = 365) Ketones, UA (test code Trace Negative A = 2514-8) Bilirubin, UA (test Negative Negative code = 09750-6) Blood, UA (test code = Moderate Negative A 90518-0) Nitrite, UA (test code Negative Negative = 5802-4) Leukocytes, UA (test Small Negative A code = 5799-2) Urobilinogen, UA (test 0.2 mg/dL 0.2-1.0 code = 61080-8) Bacteria, UA (test code Occasional = 01137-8) Yeast (test code = Moderate 68348-3) RBC, UA (test code = <5 See_Comment [Autom ated message] 799-7) The system Screen Fix Gibson generated this result transmit los reference range : /HPF. The refer ence range was not u sed to interpret th is result as normal/abnormal . WBC, UA (test code = 10-20 See_Comment [Autom ated message] 34066-7) The system Screen Fix Gibson generated this result transmit los reference range : /HPF. The refer ence range was not u sed to interpret th is result as normal/abnormal . SQUAMOUS EPITHELIAL 5-10 See_Comment [Automa los message] (test code = 04612-3) The sy stem which generated this result transmit los reference range : /HPF. The refer ence range was not u sed to interpret th is result as normal/abnormal . Specimen Source (test code = 2795) Lab Interpretation Abnormal (test code = 21738-7) [facility]/ [id number] 10:08:29 Test Item Value Reference Range Interpretation [...] SOURCE(BEAKER) (test code = 2795) Protein, random [id number] 09:23:05 Test Item Value Reference Range Interpretation Comments Protein, Urine (test code 45 mg/dL 0-14 H = 2888-6) LINDY (test code = LINDY) Bomb Squad Commander ID - EMPERATRIZ Lab Interpretation (test Abnormal code = 14448-2) [facility]Protein, random [id number] 09:23:05 Test Item Value Reference Range Interpretation Comments Protein, Urine (test code 45 mg/dL 0-14 H = 2888-6) LINDY (test code = LINDY) Bomb Squad Commander ID - DSTO Lab Interpretation (test Abnormal code = 07744-0) [facility]Protein, random [id number] 09:23:05 Test Item Value Reference Range Interpretation Comments Protein, Urine (test code 45 mg/dL 0-14 H = 2888-6) LINDY (test code = LINDY) Bomb Squad Commander ID - EMPERATRIZ Lab Interpretation (test Abnormal code = 64254-0) [facility]PROTEIN, RANDOM [id number] 09:23:05 Test Item Value Reference Range Interpretation Comments PROTEIN, URINE (BEAKER) (test code = 45 mg/dL 0-14 H 1569) Bomb Squad Commander ID - DSTOCreatinine, random [id number] 09:22:49 Test Item Value Reference Range Interpretation Comments Creatinine, Ur 145.7 mg/dL (test code = 2161-8) LINDY (test code = Reference Range: No LINDY) NormalsOperator ID - DSTO [facility] HospitalCreatinine, random [id number] 09:22:49 Test Item Value Reference Range Interpretation Comments Creatinine, Ur 145.7 mg/dL (test code = 2161-8) LINDY (test code = Reference Range: No LINDY) NormalsOperator ID - DSTO [facility] HospitalCreatinine, random [id number] 09:22:49 Test Item Value Reference Range Interpretation Comments Creatinine, Ur 145.7 mg/dL (test code = 2161-8) LINDY (test code = Reference Range: No LINDY) NormalsOperator ID - DSTO [facility] HospitalCREATININE, RANDOM [id number] 09:22:49 Test Item Value Reference Range Interpretation Comments CREATININE URINE (BEAKER) (test 145.7 mg/dL code = 375) Reference Range: No NormalsOperator ID - DSTOSodium, random [id number] 09:18:51 Test Item Value Reference Range Interpretation Comments Sodium Urine (test 35 meq/L code = 2955-3) LINDY (test code = Reference Range: No LIDNY) NormalsOperator ID - [facility]O [facility] [id number] 09:18:51 Test Item Value Reference Range Interpretation Comments Sodium Urine (test 35 meq/L code = 2955-3) LINDY (test code = Reference Range: No LINDY) NormalsOperator ID - [facility]odium, random [id number] 09:18:51 Test Item Value Reference Range Interpretation Comments Sodium Urine (test 35 meq/L code = 2955-3) LINDY (test code = Reference Range: No LINDY) NormalsOperator ID - [facility]SW[facility] HospitalODIUM, RANDOM [id number] 09:18:51 Test Item Value Reference Range Interpretation Comments SODIUM URINE (BEAKER) (test code = 35 meq/L 243) Reference Range: No NormalsOperator ID - [facility]Potassium, random urine 2021-06-29 09:15:34 Test Item Value Reference Range Interpretation Comments Potassium Urine 75.5 meq/L (test code = 2828-2) LINDY (test code = Reference Range: No LINDY) NormalsOperator ID - [facility] [id number] 09:15:34 Test Item Value Reference Range Interpretation Comments Potassium Urine 75.5 meq/L (test code = 2828-2) LINDY (test code = Reference Range: No LINDY) NormalsOperator ID - [facility], random [id number] 09:15:34 Test Item Value Reference Range Interpretation Comments Potassium Urine 75.5 meq/L (test code = 2828-2) LINDY (test code = Reference Range: No LINDY) NormalsOperator ID - [facility] CenterPOTASSIUM, RANDOM [id number] 09:15:34 Test Item Value Reference Range Interpretation Comments POTASSIUM URINE (BEAKER) (test 75.5 meq/L code = 195) Reference Range: No NormalsOperator ID - [facility]ENTERBASIC METABOLIC [id number] 08:55:08 Test Item Value Reference Range Interpretation [...] S NOT APPLICABLE FOR DIALYSIS PATIEN TS. Bomb Squad Commander ID - DSENSONOperator ID - DSENSONOperator ID - DSENSONOperator ID - DSENSONOperator ID - DSENSONOperator ID - DSENSONOperator ID - DSENSONOperator ID - DSENSONOperator ID - DSENSONOperator ID - DSENSONOperator ID - DSENSONOperator ID - DSENSONOperator ID - DSENSONOperator ID - DSENSONOperatorID - DSENSONOperator ID - DSENSONOperator ID - DSENSONOperator ID - DSENSONOperator ID - DSENSONOperator ID - DSENSONLIPID [id number] 05:02:00 Test Item Value Reference Range Interpretation [...] Borderline 130-159 High 160-189 Very High >=190 Bomb Squad Commander ID - LITOOperator ID - LITOOperator ID - LITOOperator ID - LITOOperator ID - LITOOperator ID - LITOHEPATIC FUNCTION [id number] 04:37:26 Test Item Value Reference Range Interpretation [...] Specimen slightly (test code = 347) hemolyzed Bomb Squad Commander ID - LITOOperator ID - LITOOperator ID - LITOOperator ID - LITOOperator ID - LITOOperator ID - LITOOperator ID - LITOPROTHROMBIN TIME/[id number] 04:23:54 Test Item Value Reference Range Interpretation Comments PROTIME (BEAKER) 11.4 seconds 9.3-12.0 Final Infor mation (test code = 759) (Auto Outp ut) INR (BEAKER) (test 1.03 See_Comment Final Inf ormation code = 370) (Auto Output) [Automated mess age] The system Screen Fix Gibson generated this result transmitted ref erence range: <=5.90. The reference range was not used to int erpret this result as normal/abnormal . RECOMMENDED COUMADIN/WARFARIN INR THERAPY RANGESSTANDARD DOSE: 2.0 - 3.0 Includes: PROPHYLAXIS for venous thrombosis, systemic embolization; TREATMENT for venous thrombosis and/or pulmonary embolus.HIGH RISK: Target INR is 2.5-3.5 for patients with mechanical heart valves.CBC W/PLT COUNT & AUTO [id number] 04:09:57 Test Item Value Reference Range Interpretation [...] H PERCENT (BEAKER) (test code = 2801) Notes Date/Time Note Provider Source 2021-07-11 13:32:52-00:[address] [facility] CONSULTATION FREDDIE JEFFERY FACILITY: [facility] Billing #: [id number] Room: [address] [place] [address] MR #: [id number] : 1950 DATE OF ADMISSION: 06/28/2021 DATE OF CONSULTATION: REQUESTING PHYSICIAN: HEALTHCARE ECONOMICS MANAGER: Kylie Flores MD SUBJECTIVE: Ms. Jeffery has remained stable. I ch ecked with the staff and there is no evidence of any ongoin g bleeding. There is no associated fever, chills, cough, or shortness of breath. OBJECTIVE: VITAL SIGNS: Stable. See chart. HEENT: No icterus was noted. CHEST: Clear. ABDOMEN: Soft. IMPRESSION: 1. Rectal bleeding intermittent. 2. COVID pneumonia. PLAN: Given the COVID situation and the pneumoni a, would tend to stay conservative unless the patient has evid ence of ongoing bleeding or significant drop in the hematocrit. NM/MODL /[id number] 2021-07-10 13:00:38-00:[address] PROGRESS NOTE FREDDIE JEFFERY FACILITY: [facility] Billing #: [id number] Room: [address] [place] [address] MR #: [id number] : 1950 PHYSICIAN: Kylie Flores MD ADMISSION DATE: 06/28/2021 DATE: 07/10/2021 SUBJECTIVE: Ms. Jeffery had some small amount of blood in the stools last night, but currently has brown stool . There are no other symptoms. She is stable from a GI standpoi nt and stable from the respiratory standpoint also. OBJECTIVE: VITAL SIGNS: Her temperature was 98.3 , pulse 69, respirations 18, and the blood pressure is 135/6 7. LABORATORY DATA: Showed hematocrit that was slig htly lower at 24.3. IMPRESSION AND PLAN: 1. Anemia. 2. History of recent GI bleed. 3. Coronavirus disease pneumonia. The patient may end up requiring colonoscopy, th ough I would wait to see as to what happens. If there is any evidence of further bleeding, then we will have to proceed w ith that. NM/MODL /[id number] 2021-07-09 13:52:22-00:[address] [facility] PROGRESS NOTE FREDDIE JEFFERY FACILITY: [facility] Billing #: [id number] Room: [address] [place] [address] MR #: [id number] : 1950 PHYSICIAN: Kylie Flores MD ADMISSION DATE: 06/28/2021 DATE: 07/09/2021 SUBJECTIVE: Ms. Jeffery has had hypoxic respirato ry failure secondary to COVID pneumonia. She also had evide nce of bleeding, but at present does not have any. She is on steroids. OBJECTIVE: VITAL SIGNS: Temperature was 98.3, pu lse 71, respirations 18, and the blood pressure is 130/6 8. LABORATORY DATA: Hematocrit was stable at 26.5. IMPRESSION: Gastrointestinal bleed, resolved, of f blood thinners. PLAN: We will go ahead and follow her conservati vely. If she has evidence of bleeding, then interventions may be reasonable, but otherwise would continue to follow a conserv ative approach. ZACHARIAH/MODGamaliel /[id number] 2021-07-08 09:48:06-00:00 [facility] FREDDIE JEFFERY FACILITY: [facility] Billing #: [id number] Room: [address] [place] [address] MR #: [id number] : 1950 PHYSICIAN: Kylie Flores MD ADMISSION DATE: 06/28/2021 DATE: SUBJECTIVE: Ms. Jeffery has had no evidence of an y bleeding. There is no associated nausea or vomiting. She i s stable from a COVID standpoint. OBJECTIVE: VITAL SIGNS: Her temperature was 98.1 , pulse 79, respirations 18, and blood pressure 140/74. LABORATORY DATA: Reviewed, which showed a stable hematocrit 26.5. Notes from Dr. James Perez were reviewed. IMPRESSION: 1. Coronavirus disease pneumonia. 2. Gastrointestinal bleed resolved. The patient was on blood thinners, which is being held. 3. Hyperlipidemia. 4. Hypertension. 5. No further GI workup is recommended. NM/MODL /[id number] 2021-07-07 14:34:33-00:[address] [facility] PROGRESS NOTE LATIA FREDDIE FACILITY: [facility] Billing #: [id number] Room: [address] [place] [address] MR #: [id number] : 1950 PHYSICIAN: Kylie Flores MD ADMISSION DATE: 06/28/2021 DATE: 07/07/2021 SUBJECTIVE: Ms. Jeffery also had her GI bleeding scan yesterday and that was negative as reported just a short w hile ago. Earlier, the results were not back. There are no other changes in her overall condition. She has had the COVID pneumonia. OBJECTIVE: VITALS: The temperature was 98.4, pul se 82, respirations 17, and the blood pressure was 125/ 67. LABORATORY DATA: The lab data was reviewed. The hematocrit was low at 24.7, but other numbers look reasonab le. IMPRESSION: 1. Coronavirus disease pneumonia. 2. Lower gastrointestinal bleed, likely in the s etting of anticoagulant use, which has been stopped. PLAN: We will go ahead and follow her conservati vely. I had a long discussion yesterday with the son, who unde rstood that if the GI bleeding scan was positive, it would lead to a colonoscopy and he understood that, but at prese nt, would just continue to stay conservative. NM/MODL /[id number] 2021-07-06 18:34:44-00:[address] [facility] PROGRESS NOTE LATIA FREDDIE FACILITY: [facility] Billing #: [id number] Room: [address] [place] [address] MR #: [id number] : 1950 PHYSICIAN: Kylie Flores MD ADMISSION DATE: 06/28/2021 DATE: 07/06/2021 SUBJECTIVE: Ms. Jeffery essentially has had more bleeding. She was taken off the Eliquis. She will be getting s ome blood. There is no associated fever, chills, cough, etc . PHYSICAL EXAMINATION: VITAL SIGNS: The temperature was 97.3, pulse 79, respirations 17, and the blood pressure is 117/58. LABORATORY DATA: Remarkable for a hematocrit of 21.2 with a platelet count of 92,000. The INR was normal at 0.99. IMPRESSION: 1. Gastrointestinal bleed. 2. Posthemorrhagic anemia. PLAN: The patient likely will need to be transfu sed. Also I have ordered a stat GI bleeding scan and we will follow. The patient may require a colonoscopy and we will aw ait the results of the scan. It appears that many times _ it is not done and no scans are done over the weekend, and if that is the case, we may need to resort to a CT angiography. ZACHARIAH/MODL /[id number] 2021-07-05 13:11:09-00:[address] [facility] CONSULTATION FREDDIE JEFFERY FACILITY: [facility] Billing #: [id number] Room: [address] [place] [address] MR #: [id number] : 1950 DATE OF ADMISSION: 06/28/2021 DATE OF CONSULTATION: 07/04/2021 REQUESTING PHYSICIAN: HEALTHCARE ECONOMICS MANAGER: Kylie Flores MD Hospital Visit Note REASON FOR CONSULTATION: Rectal bleeding. HISTORY OF PRESENT ILLNESS: The patient is a 70- year-old female with a plethora of medical problems inclu ding diabetes mellitus, hypertension, hyperlipidemia, peripher al vascular disease. She has been on Eliquis and had a stabl e hematocrit of 30 on admission. She, however, was noticed to have some bright red blood via the rectum. The Eliquis was stopped and she has had no further evidence of bleeding. She had a chest CT per PE protocol that was negative. GI consult ation was obtained for the drop in the hematocrit and the bright red blood. PAST MEDICAL HISTORY: Well documented in the [facility] rt. SOCIAL/FAMILY HISTORY: Otherwise unremarkable. T he patient was positive for COVID pneumonia. PHYSICAL EXAMINATION: Not done. IMPRESSION AND PLAN: Drop in the hematocrit with rectal bleeding in the setting of Eliquis use. The david ent is off Eliquis now and has had no evidence of any bleed ing. I will go ahead and continue to follow. If she continues t o bleed or drop the hematocrit further, then the colonoscop y would be reasonable. NM/MODL /[id number] 2021-07-01 19:42:33-00:00 [facility] [facility] FREDDIE JEFFERY FACILITY: [facility] Billing #: [id number] Room: [address] [place] [address] MR #: [id number] : 1950 PHYSICIAN: Richardson Amado MD ADMISSION DATE: 06/28/2021 DATE: 07/01/2021 SUBJECTIVE: Doing okay, not in distress. Labs an d imaging noted. MEDICATIONS: Reviewed. REVIEW OF SYSTEMS: As per HPI. PHYSICAL EXAMINATION: VITAL SIGNS: Temperature 97.6, BP 1.67, pulse 74 , respirations 18, and oxygen saturation 97%. HEENT: No JVD. CHEST: Equal breath sounds. Fair air exchange. HEART: Normal S1, S2. ABDOMEN: Soft. No rebound or guarding. EXTREMITIES: No clubbing or cyanosis. ASSESSMENT AND PLAN: 1. The patient has COVID-19 related pneumonia. 2. COVID-19 infection. 3. Vaginal bleeding. 4. The patient also has acute kidney injury. 5. Dehydration. PLAN: Continue current medical management. Kurtis nue antibiotics, tapering dose of steroids. Continue active sliding scale coverage for her diabetes. JMN/MODL /[id number] 2021-06-30 18:50:17-00:00 RICHARDSON AMADO PROGRESS NOTE FREDDIE JEFFERY FACILITY: [facility] Billing #: [id number] Room: [address] [place] [address] MR #: [id number] : 1950 PHYSICIAN: Richardson Amado MD ADMISSION DATE: 06/28/2021 DATE: 06/30/2021 SUBJECTIVE: Appears to be doing okay. Not in dis tress. Labs and imaging noted. REVIEW OF SYSTEMS: As per HPI. MEDICATIONS: Per reconciliation form. PHYSICAL EXAMINATION: VITAL SIGNS: Temperature 98.2, BP 120/68, pulse 90, respirations 18, saturating 98%, temperature 97. 1. HEENT: No JVD. CHEST: Equal breath sounds. Fair air exchange. HEART: Normal S1, S2. ABDOMEN: Soft. No rebound or guarding. EXTREMITIES: No clubbing or cyanosis. ASSESSMENT: 1. Possible COVID. 2. Diabetes. 3. Hyperlipidemia. 4. Hypertension. PLAN: Continue current medical management and anderson pportive care. Continue steroids and remdesivir for possible c ough or COVID. The patient also on IV antibiotics. CHRISTINA/FITZ /[id number]
--- NOTE | 2023-04-10 10:41 | RAD REPORT ---
EXAM DESCRIPTION: RAD - Chest Single View - 04/10/2023 10:25 am CLINICAL HISTORY: CHF Chest pain. COMPARISON: Chest Single View dated 11/06/2022; Chest Single View dated 01/31/2022; Chest Single View dated 08/31/2021; Chest Single View dated 08/22/2021 FINDINGS: Portable technique limits examination quality. Mild pulmonary edema is seen. Small bilateral pleural effusions. The heart is moderately enlarged. No displaced fractures. IMPRESSION: Mild CHF versus volume overload pattern.
[2023-04-10 10:52] LABS: Absolute Lymphocytes (CBC) 1.2 K/uL (0.7-4.9); Lymphocytes % 26.4 % (15.3-44.8); MCV 104.5 fL (80-100); MPV 9.6 fL (7.6-11.3); RBC Red Blood Cell Count 4.59 M/uL (3.86-4.86)
[2023-04-10 10:58] LABS: Protime INR 1.25
[2023-04-10 11:10] LABS: Albumin 3.2 g/dL (3.4-5.0); Bilirubin Direct 0.5 mg/dL (0-0.2); Bilirubin Indirect, Calculated 0.7 mg/dL (0.2-0.8); Bilirubin Total 1.2 mg/dL (0.2-1.0); Potassium 3.6 mEq/L (3.5-5.1); Protein, Total 7.3 g/dL (6.4-8.2)
[2023-04-10 11:13] LABS: Troponin High Sensitivity 119.1 pg/mL (<58.9)
[2023-04-10] MEDS ORDERED: FUROSEMIDE 20 MG/ 2ML VIAL ONE (11:17)
--- NOTE | 2023-04-10 11:18 | EDPHYS ---
Physician Documentation [facility] Name: Marry Chowdary Age: 72 yrs Sex: Female : 1950 Arrival Date: 04/10/2023 Time: 10:01 Bed 20 Private MD: ED Physician Joaquin Barrios HPI: 04/10 10:17 This 72 yrs old Black Female presents to ER via Unassigned with complaints of Feet rn Swelling. 10:17 Pt reports feet swelling, mild sob, unknown onset, but worse over last week. No fever. rn NO trauma. Has hx of dvt and has IVC filter per daughter. Has not been taking her lasix regularly, and when she does, she only takes half of prescribed dose. . Onset: The symptoms/episode began/occurred at an unknown time. Severity of symptoms: At their worst the symptoms were moderate in the emergency department the symptoms are unchanged. The patient has experienced similar episodes in the past. The patient has not recently seen a physician. Historical: - Allergies: 10:18 No Known Allergies; nj1 - PMHx: 10:18 Arthritis; Atrial fibrillation; Congestive heart failure; Hyperlipidemia; Hypertension; nj1 - PSHx: 10:18 Cholecystectomy; hysterectomy; nj1 - Immunization history:: Client reports receiving the 2nd dose of the Covid vaccine. - Social history:: Smoking status: Patient denies any tobacco usage or history of. - Family history:: not pertinent. - Hospitalizations: : No recent hospitalization is reported. ROS: 10:17 Constitutional: Negative for fever, chills, and weight loss, Cardiovascular: Negative rn for chest pain, palpitations Respiratory: Negative for shortness of breath, cough, wheezing, and pleuritic chest pain, Abdomen/GI: Negative for abdominal pain, nausea, vomiting, diarrhea, and constipation, MS/Extremity: Negative for injury and deformity, Skin: Negative for injury, rash, and discoloration, Neuro: Negative for headache, weakness, numbness, tingling, and seizure. Exam: 10:17 Constitutional: This is a well developed, well nourished patient who is awake, alert, rn and in no acute distress. Cardiovascular: Regular rate and rhythm. No pulse deficits. Respiratory: No increased work of breathing, no retractions or nasal flaring. Abdomen/GI: Soft, non-tender Skin: Warm, dry MS/ Extremity: Pulses equal, no cyanosis. 3+ pitting edema, bilateral lower ext up to knees, equal circumference Neuro: Awake and alert, GCS 15 10:49 ECG was reviewed by the Attending Physician. rn Vital Signs: 10:16 BP 154 / 97; Pulse 74; Resp 18; Temp 98; Pulse Ox 99% ; Weight 75.3 kg; Height 5 ft. 7 nj1 in. ; Pain 0/10; 11:21 BP 149 / 100; Pulse 71; Resp 20 S; Pulse Ox 99% on R/A; kc6 14:20 BP 142 / 87; Pulse 68; Resp 20; Pulse Ox 96% on R/A; mb9 10:16 Body Mass Index 26.00 (75.30 kg, 170.18 cm) nj1 10:16 Pain Scale: Adult nj1 MDM: 10:06 Patient medically screened. rn 11:15 Differential Diagnosis CHF exacerbation. Data reviewed: vital signs, nurses notes, lab[employer] test result(s), EKG, radiologic studies, plain films, and as a result, I will admit patient. Consideration of Admission/Observation Patient was admitted/placed on observation. Escalation of care including admission/observation considered. Management of patient was discussed with the following: Hospitalist: . I considered the following discharge prescriptions or medication management in the emergency department Medications were administered in the Emergency Department. See MAR. Counseling: I had a detailed discussion with the patient and/or guardian regarding: the historical points, exam findings, and any diagnostic results supporting the discharge/admit diagnosis, lab results, radiology results, the need for further work-up and treatment in the hospital. Response to treatment: the patient's symptoms have mildly improved after treatment. 04/10 10:14 Order name: Basic Metabolic Panel; Complete Time: 11:14 rn 04/10 10:14 Order name: CBC with Diff; Complete Time: 10:56 rn 04/10 10:14 Order name: LFT's; Complete Time: 11:14 rn 04/10 10:14 Order name: NT PRO-BNP; Complete Time: 11:14 rn 04/10 10:14 Order name: PT-INR; Complete Time: 11:12 rn 04/10 10:14 Order name: Troponin HS; Complete Time: 11:14 rn 04/10 12:37 Order name: CBC with Automated Diff EDMS 04/10 12:37 Order name: CBC with Automated Diff EDNM 04/10 12:37 Order name: Comprehensive Metabolic Panel EDNM 04/10 12:37 Order name: Comprehensive Metabolic Panel EDNM 04/10 12:37 Order name: Magnesium EDNM 04/10 12:37 Order name: Magnesium EDNM 04/10 12:37 Order name: Troponin High Sensitivity EDNM 04/10 12:37 Order name: Troponin High Sensitivity EDNM 04/10 12:37 Order name: Troponin High Sensitivity [facility] 04/10 10:14 Order name: XRAY Chest (1 view); Complete Time: 10:50 rn 04/10 10:14 Order name: EKG; Complete Time: 10:15 rn 04/10 11:33 Order name: Diet Heart Healthy; Complete Time: 11:33 kc6 04/10 13:47 Order name: Diet Heart Healthy; Complete Time: 13:48 mb9 04/10 10:14 Order name: Cardiac monitoring; Complete Time: 11:02 rn 04/10 10:14 Order name: EKG - Nurse/Tech; Complete Time: 10:39 rn 04/10 10:14 Order name: IV Saline Lock; Complete Time: 11:02 rn 04/10 10:14 Order name: Labs collected and sent; Complete Time: 11:02 rn 04/10 10:14 Order name: O2 Per Protocol; Complete Time: 10:39 rn 04/10 10:14 Order name: O2 Sat Monitoring; Complete Time: 10:39 rn EC:49 Rate is 74 beats/min. Rhythm is irregular. QRS is positive in lead aVF and negative in rn lead I. IL interval is normal. QRS interval is normal. QT interval is normal. No Q waves. T waves are Inverted in leads V5, V6. No ST changes noted. Clinical impression: NSR w/ Non-specific ST/T Changes and PVCs. Interpreted by me. Reviewed by me. Administered Medications: 11:19 Drug: Furosemide IVP 60 mg Route: IVP; Site: left antecubital; kc6 Disposition Summary: 04/10/23 11:18 Hospitalization Ordered Hospitalization Status: Observation rn Provider: Richard Barrios rn Location: Telemetry/MedSurg (observation) rn Condition: Stable rn Problem: an acute exacerbation rn Symptoms: have improved rn Bed/Room Type: Standard rn Room Assignment: 221(04/10/23 13:55) dw Diagnosis - Unspecified combined systolic (congestive) and diastolic (congestive) heart failure rn - Acute pulmonary edema rn - Edema, unspecified rn Forms: - Medication Reconciliation Form rn - SBAR form rn Signatures: Dispatcher [employer] Genesis Dee, RN Joaquin Herrera MD MD rn Campbell, Kaitlyn, RN RN kc6 Annel Arthur RN RN nj1 Corrections: (The following items were deleted from the chart) 13:55 11:18 norah ospina
--- NOTE | 2023-04-10 11:18 | ER ---
Nurse's Notes [facility] Name: Marry Chowdary Age: 72 yrs Sex: Female : 1950 Arrival Date: 04/10/2023 Time: 10:01 Bed 20 Private MD: Diagnosis: Unspecified combined systolic (congestive) and diastolic (congestive) heart failure;Acute pulmonary edema;Edema, unspecified Presentation: 04/10 10:16 Chief complaint: Patient states: Swelling to legs, getting worse over the past few nj1 weeks. Coronavirus screen: Vaccine status: Patient reports receiving the 2nd dose of the covid vaccine. Ebola Screen: Patient denies travel to an Ebola-affected area in the 21 days before illness onset. Initial Sepsis Screen: Does the patient meet any 2 criteria? No. Patient's initial sepsis screen is negative. Does the patient have a suspected source of infection? No. Patient's initial sepsis screen is negative. Risk Assessment: Do you want to hurt yourself or someone else? Patient reports no desire to harm self or others. Onset of symptoms. 10:16 Method Of Arrival: Ambulatory nj 10:16 Acuity: MOSES 3 nj1 Historical: - Allergies: 10:18 No Known Allergies; nj1 - PMHx: 10:18 Arthritis; Atrial fibrillation; Congestive heart failure; Hyperlipidemia; Hypertension; nj1 - PSHx: 10:18 Cholecystectomy; hysterectomy; nj1 - Immunization history:: Client reports receiving the 2nd dose of the Covid vaccine. - Social history:: Smoking status: Patient denies any tobacco usage or history of. - Family history:: not pertinent. - Hospitalizations: : No recent hospitalization is reported. Screenin:30 [facility] ED Fall Risk Assessment (Adult) History of falling in the last 3 months, kc6 including since admission No falls in past 3 months (0 pts) Confusion or Disorientation No (0 pts) Intoxicated or Sedated No (0 pts) Impaired Gait No (0 pts) Mobility Assist Device Used No (0 pt) Altered Elimination No (0 pt) Score/Fall Risk Level 0 - 2 = Low Risk Oriented to surroundings, Maintained a safe environment, Educated pt \T\ family on fall prevention, incl call for assistance when getting out of bed, Assessed \T\ reinforced patient's understanding of fall precautions, Hourly rounding (assess needs \T\ fall precautionary measures) done. Abuse screen: Denies threats or abuse. Denies injuries from another. Nutritional screening: No deficits noted. Tuberculosis screening: No symptoms or risk factors identified. Assessment: 10:30 General: Appears in no apparent distress. comfortable, Behavior is calm, cooperative, kc6 appropriate for age. Pain: Denies pain. Neuro: Level of Consciousness is awake, alert, obeys commands, Oriented to person, place, time, situation, Appropriate for age. Cardiovascular: Heart tones S1 S2 present Capillary refill < 3 seconds Edema is 3+ to left midcalf, left ankle, right midcalf and right ankle pitting to left midcalf, left ankle, right midcalf and right ankle Rhythm is sinus rhythm. Respiratory: Airway is patent Trachea midline Respiratory effort is even, unlabored, Respiratory pattern is regular, symmetrical. GI: No signs and/or symptoms were reported involving the gastrointestinal system. : No signs and/or symptoms were reported regarding the genitourinary system. EENT: No signs and/or symptoms were reported regarding the EENT system. Derm: No signs and/or symptoms reported regarding the dermatologic system. Skin is intact, Skin is pink, warm \T\ dry. Musculoskeletal: No signs and/or symptoms reported regarding the musculoskeletal system. Circulation, motion, and sensation intact. Capillary refill < 3 seconds, Range of motion: intact in all extremities. 10:48 Reassessment: No changes from previously documented assessment. Patient and/or family ll1 updated on plan of care and expected duration. Pain level reassessed. 12:00 Reassessment: No changes from previously documented assessment. Patient and/or family mb9 updated on plan of care and expected duration. Pain level reassessed. Patient is alert, oriented x 3, equal unlabored respirations, skin warm/dry/pink. 14:20 Reassessment: No changes from previously documented assessment. Patient and/or family mb9 updated on plan of care and expected duration. Pain level reassessed. Patient is alert, oriented x 3, equal unlabored respirations, skin warm/dry/pink. Vital Signs: 10:16 BP 154 / 97; Pulse 74; Resp 18; Temp 98; Pulse Ox 99% ; Weight 75.3 kg; Height 5 ft. 7 nj1 in. ; Pain 0/10; 11:21 BP 149 / 100; Pulse 71; Resp 20 S; Pulse Ox 99% on R/A; kc6 14:20 BP 142 / 87; Pulse 68; Resp 20; Pulse Ox 96% on R/A; mb9 10:16 Body Mass Index 26.00 (75.30 kg, 170.18 cm) nj1 10:16 Pain Scale: Adult [facility] ED Course: 10:05 Patient arrived in ED. im 10:05 Joaquin Barrios MD is Attending Physician. rn 10:18 Triage completed. nj1 10:19 Alie Cummings, RN is Primary Nurse. kc6 10:19 Arm band placed on left wrist. nj1 10:26 XRAY Chest (1 view) In Process Unspecified. EDMS 10:30 Patient has correct armband on for positive identification. Placed in gown. Bed in low kc6 position. Call light in reach. Side rails up X2. Adult w/ patient. 10:42 Inserted saline lock: 22 gauge in left antecubital area, using aseptic technique. Blood ll1 collected. 10:45 EKG done, by ED staff. aw1 11:17 Richard Barrios MD is Hospitalizing Provider. rn 11:[address] kc6 12:53 Troponin High Sensitivity Sent. mb9 14:21 No provider procedures requiring assistance completed. Patient admitted, IV remains in mb9 place. Administered Medications: 11:19 Drug: Furosemide IVP 60 mg Route: IVP; Site: left antecubital; kc6 Outcome: 11:18 Decision to Hospitalize by Provider. rn 14:20 Admitted to Med/surg via wheelchair, room 221, with chart, Report called to DESTIN Castellanos9 14:20 Condition: stable 14:20 Instructed on the need for admit. 14:53 Patient left the ED. mb9 Signatures: Dispatcher [employer] EDMS Joaquin Barrios MD MD rn Lewis, Lynsay, RN RN ll1 Alie Cummings, RN DESTIN [email or web address] Di Morris RN RN mb9 Annel Arthur RN RN nj1 Jeanna Lawson Inessa Yu aw1
[2023-04-10] MEDS ORDERED: ONDANSETRON 4 MG/2 ML VIAL IV PRN (12:33)
--- NOTE | 2023-04-10 12:37 | P.HP ---
Certification for Inpatient Patient admitted to: Observation With expected LOS: <2 Midnights Practitioner: I am a practitioner with admitting privileges, knowledge of patient current condition, hospital course, and medical plan of care. Services: Services provided to patient in accordance with Admission requirements found in Title 42 Section 412.3 of the Code of Federal Regulations Patient History Date of Service: 04/10/23 Reason for admission: CHF exacerbation History of Present Illness: 72 yo F, PMH: Systolic CHF (EF: 35-40% January 2022), A-fib, HTN, HLD, Osteoarthritis, Anemia of chronic disease, CKD 3B, DVT with IVC filter. Presented to the ED due to progressively worsening swelling om bilateral legs over the last week, associated with slight dyspnea on exertion. Patient has a history of systolic CHF and prescribed Lasix. She states over the last 1-2 months she has cut back on her dose due to urinating too frequently. ~1 month ago cut her Lasix dose in half, and then started noticing her swelling in her feet/legs has been slowly worsening. Patient has not seen her physician or taking any extra medications at home. Patient denies any chest pain, no fever, no change in urinary habits, and no other change in her medications. No nausea/vomiting, no diarrhea, no recent illness/sick contacts, no change in vision, no numbness/tingling. In the ED, she was noted to be tachypneic, dyspneic, lab work notable for elevated troponin (119), CXR: Appearance of mild CHF/volume overload, slightly elevated creatinine (1.55), elevated BNP (26 K). She was given a dose of IV Lasix, started urinating and felt some mild improvement. Allergies No Known Allergies Allergy (Verified 04/13/15 10:06) Home Medications: Amiodarone HCl [Pacerone] 200 mg PO BID #60 tablet 11/08/22 Apixaban [Eliquis] 5 mg PO BID #60 tablet 11/08/22 Aspirin Chewable [Aspirin Chewable*] 81 mg PO DAILY #30 tab.chew 11/08/22 Atorvastatin Calcium [Lipitor] 40 mg PO BEDTIME #30 tab 11/08/22 Furosemide [Lasix] 40 mg PO DAILY #30 tab 11/08/22 Metoprolol Tartrate [Lopressor*] 25 mg PO BID 6AM 6PM #60 tab 11/08/22 Potassium Chloride [K-Dur] 10 meq PO DAILY #30 tab 11/08/22 Sacubitril/Valsartan [Entresto 49 mg-51 mg Tablet] 1 tab PO BID #60 tab 11/08/22 - Past Medical/Surgical History Diabetic: No -: chronic systolic CHF -: A-fib -: Anemia of Chronic disease -: Hypertension -: Hyperlipidemia -: Osteoarthritis -: Covid -: GI bleed -: Cholecystectomy -: Hysterectomy - Family History Family History: Reviewed- Non-Contributory - Social History Smoking Status: Never smoker Alcohol use: No CD- Drugs: No Caffeine use: No Place of Residence: Home Review of Systems 10-point ROS is otherwise unremarkable Physical Examination - Studies Laboratory Data (last 24 hrs) 04/10/23 10:42: PT 13.8 H, INR 1.25 04/10/23 10:42: WBC 4.50, Hgb 15.2 H, Hct 48.0 H, Plt Count 110 L 04/10/23 10:42: Sodium 144, Potassium 3.6, BUN 18, Creatinine 1.55 H, Glucose 110 H, Total Bilirubin 1.2 H, AST 17, ALT 20, Alkaline Phosphatase 77 Assessment and Plan Discharge Plan: Home Plan to discharge in: 24 Hours - Advance Directives Does patient have a Living Will: Yes Does patient have a Durable POA for Healthcare: No - Code Status/Comfort Care Code Status Assessed: Yes Code Status: Full Code Physician Review Additional Text: Physical Exam: GEN: Alert, oriented, NAD HEENT: Normal conjunctiva, sclera anicteric CV: Regular rate and rhythm, 3+ bilateral edema up to thighs Pulm: Nonlabored respirations on room air at rest, slightly diminished at bases b/l, mild crackles bilaterally ABD: Soft, nontender, nondistended MSK: No joint tenderness Integumentary: No rashes Neuro: Normal speech, normal affect vitals reviewed Problem List: Acute on chronic systolic CHF exacerbation A-fib, chronic; on anticoagulation Hypertension Hyperlipidemia Anemia of chronic disease CKD 3B Osteoarthritis h/o DVT s/p IVC filter Patient appears in acute CHF exacerbation Denies any chest pain, lab work with elevated troponin Suspect troponin elevation secondary to demand ischemia Trend troponin through the day Patient's worsening edema secondary to the decrease of her Lasix dosage Counseled the patient on appropriate adherence to her medication, and signs/symptoms to monitor Continue IV Lasix 40 mg twice daily Monitor I's/O Continue home medications, Eliquis, metoprolol, statin, Entresto, amiodarone (confirm home dosing) Repeat BMP in a.m. to monitor renal function and electrolytes VTE: Home eliquis Code: Full Dispo: Home ~24 hrs Time Spent Managing Pts Care (In Minutes): 70
[2023-04-10 13:10] VITALS: BMI 25.8
[2023-04-10] MEDS: FUROSEMIDE 40 MG/4 ML VIAL IV SCH (16:15)
[2023-04-10] MEDS: METOPROLOL TAR 25 MG TAB PO SCH (17:28)
[2023-04-10] MEDS: SACUBITRIL/VALSARTAN 49/51 MG TAB PO SCH (20:06)
[2023-04-10] MEDS: ATORVASTATIN 40 MG TAB PO SCH (20:06)
[2023-04-10] MEDS: APIXABAN 5 MG TABLET PO SCH (20:06)
[2023-04-11] MEDS: METOPROLOL TAR 25 MG TAB PO SCH ×2 (05:58→17:23)
[2023-04-11 06:59] LABS: Absolute Lymphocytes (CBC) 1.1 K/uL (0.7-4.9); Hematocrit 42.9 % (36.0-45.0); Lymphocytes % 24.8 % (15.3-44.8); MCV 103.9 fL (80-100); MPV 10.2 fL (7.6-11.3); RBC Red Blood Cell Count 4.13 M/uL (3.86-4.86)
[2023-04-11 07:19] LABS: Albumin 2.8 g/dL (3.4-5.0); Bilirubin Total 1.1 mg/dL (0.2-1.0); Magnesium 1.8 mg/dL (1.6-2.4); Potassium 3.1 mEq/L (3.5-5.1); Protein, Total 6.6 g/dL (6.4-8.2)
[2023-04-11] MEDS ORDERED: POTASSIUM 25 MEQ EFFERV TAB PO ONE (07:32)
[2023-04-11] MEDS ORDERED: MAGNESIUM OXIDE 400 MG TAB PO ONE (07:40)
[2023-04-11] MEDS: SACUBITRIL/VALSARTAN 49/51 MG TAB PO SCH ×2 (08:44→20:42)
[2023-04-11] MEDS: AMIODARONE HCL 200 MG TAB PO SCH (08:44)
[2023-04-11] MEDS: FUROSEMIDE 40 MG/4 ML VIAL IV SCH ×2 (08:45→17:24)
[2023-04-11] MEDS: APIXABAN 5 MG TABLET PO SCH ×2 (08:45→20:42)
[2023-04-11] MEDS ORDERED: POTASSIUM CL SA 10 MEQ TAB PO ONE (08:50)
--- NOTE | 2023-04-11 08:51 | EKG ---
Test Date: 2023-04-10 Test Time: 10:40:44 Cardiology Consultants: [facility] MEASUREMENT RESULTS: Intervals: Rate: 74 [place]: 184 QRSD: 102 QT: 428 QTc: 475 [place]: P: 69 [place]: 184 QRS: 115 T: 267 INTERPRETIVE STATEMENTS: Sinus rhythm with occasional premature ventricular complexes Possible Left atrial enlargement Septal infarct, age undetermined Lateral infarct, age undetermined ST & T wave abnormality, consider inferior ischemia Abnormal ECG Compared to ECG 11/06/2022 08:25:00 Ventricular premature complex(es) now present Myocardial infarct finding now present Prolonged QT interval no longer present ST (T wave) deviation still present Possible ischemia still present Electronically Signed On 04-11-23 08:48:18 CDT by Alejandro Jose
[2023-04-11] MEDS ORDERED: ALBUMIN HUMAN 25% 100 ML IV ONE (17:02)
[2023-04-11] MEDS: ATORVASTATIN 40 MG TAB PO SCH (20:42)
[2023-04-12 06:31] LABS: Magnesium 1.9 mg/dL (1.6-2.4); Potassium 3.6 mEq/L (3.5-5.1)
[2023-04-12] MEDS: METOPROLOL TAR 25 MG TAB PO SCH (06:41)
[2023-04-12] MEDS: SACUBITRIL/VALSARTAN 49/51 MG TAB PO SCH (08:16)
[2023-04-12] MEDS: FUROSEMIDE 40 MG/4 ML VIAL IV SCH (08:16)
[2023-04-12] MEDS: APIXABAN 5 MG TABLET PO SCH (08:16)
[2023-04-12] MEDS: AMIODARONE HCL 200 MG TAB PO SCH (08:17)
[2023-04-12 08:25] VITALS: O2SAT 95
[2023-04-12] MEDS ORDERED: POTASSIUM CL SA 10 MEQ TAB PO ONE (09:00)
[2023-04-12 12:09] VITALS: BP 136/83; TEMP 98
== END 2023-04-12 14:06 | disposition home or self-care (01) ==
LOC: ER 10:01 → ERHOLD 12:31 → 2ND 14:22
PROVIDERS: ADMIT Hospitalist; ATTEND Hospitalist
DX: I50.23 Acute on chronic systolic (congestive) heart failure (principal); I48.11 Longstanding persistent atrial fibrillation; I10 Essential (primary) hypertension; E78.5 Hyperlipidemia, unspecified; D63.1 Anemia in chronic kidney disease; N18.32 Chronic kidney disease, stage 3b; M19.90 Unspecified osteoarthritis, unspecified site; Z86.718 Personal history of other venous thrombosis and embolism; Z79.01 Long term (current) use of anticoagulants
CPT/HCPCS: 93005; 85025 ×2; 80048 ×2; 36415 ×2; 83735 ×2; 84132; 85610; 80076; 84484 ×3; 80053; 83880; 71045; 94760 ×5; 96374; 99285; P9047; J1940 ×6; G0378

== ENCOUNTER 2023-05-12 12:22 | Inpatient (IN) | payer OTHER ==
--- OUTSIDE RECORDS SUMMARY | 2023-05-12 12:31 | XMS REPORT | Continuity of Care Document ---
:1950 Author Organization Formerly [facility] t Address [address] [facility] [address] [facility] [address] [place] [address] Care Team Providers Name Role Phone Karl CURTIS Kina Primary Care Physician JAMES PEREZ Attending Clinician Unavailable Provider, Generic External Data Attending Clinician Unavaila stan Palomo MD, Ming Attending Clinician James Perez MD Attending Clinician James Perez MD Attending Clinician JAEMS PEREZ Admitting Clinician Unavailable Payers Payer Name Policy Type Policy Number Effective Date Expiration Date [facility] [id number] 2021 00:00:00 Problems Condition Condition Condition Status [...] 00:00: t & Plan: Hospita on on 00 Formattin l g of this note [...] Date Date Clinician NO KNOWN Allergy Active [facility] Social History Social Habit Start Date Stop Date Quantity Comments Source History [facility] Alcohol Comment Medical C enter Gender identity [facility] Sexual orientation [facility] Alcohol Std Drinks [facility] History [facility] Alcohol Binge Medical [facility] Alcohol intake 2021-06-29 2021-06-[address] [facility] 00:[facility] 00:00:00 non-drinker Medical Cent[facility] r (finding) History SDOH 2021-06-29 2021-06-[address] [facility] Alcohol Frequency 00:00:00 00:00:00 [facility] Sex Assigned At [address] [facility] 00:00:00 00:[facility]:00 Medical Center Smoking Status Start Date Stop Date Source Tobacco smoking consumption unknown [facility] Never smoked tobacco [facility] Medications Ordered Filled Start Stop Current Ordering Indication Dosage Frequency Signature Comments Components Source Medication Medication Date Date Medication? Clinician (SIG) Name Name furosemide 40mg QD Take 1 Meth emerita (LASIX) 40 5-16 05-16 tablet (40 st mg tablet 10:29: 00:00 mg total) Ho spita 04 :00 by mouth l daily. furosemide 2023-0 2023- No 40mg QD Take 1 Meth emerita (LASIX) 40 5-16 05-16 tablet (40 st mg tablet 10:29: 00:00 mg total) Ho spita 04 :00 by mouth l daily. potassium 2023-0 2023- No 10meq QD Take 1 Meth emerita chloride 5-16 05-16 tablet (10 st (KLOR-CON) 10:27: 00:00 mEq total) Hospita 10 MEQ CR 54 :00 by mouth l tablet daily. potassium 2023-0 2023- No 10meq QD Take 1 Meth emerita chloride 5-16 05-16 tablet (10 st (KLOR-CON) 10:27: 00:00 mEq total) Hospita 10 MEQ CR 54 :00 by mouth l tablet daily. apixaban 2023-0 Yes 5mg Q.5D Take 1 Methodi (ELIQUIS) 5 5-16 tablet (5 st mg tablet 09:36: mg total) Hos barb 40 by mouth 2 l (two) times a day. sacubitriL- 2023-0 Yes 1{tbl} Q.5D Take 1 Me thodi valsartan 5-[address] (Entresto) 09:36: mouth 2 Hosp heidi 97-103 mg 40 (two) l tablet per times a tablet day. metoprolol 2023-0 Yes 100mg Q.5D Take 1 Meth emerita tartrate 5-[address] (LOPRESSOR) 09:36: (100 mg Hos barb 100 mg 40 total) by l tablet mouth 2 (two) times a day. amIODarone 2023-0 Yes 100mg QD Take 0.5 Me thodi (PACERONE) 5-[address] 200 MG 09:36: (100 mg Hospita tablet 40 total) by l mouth daily. apixaban 2023-0 Yes 5mg Q.5D Take 1 Methodi (ELIQUIS) 5 5-16 tablet (5 st mg tablet 09:36: mg total) Hos barb 40 by mouth 2 l (two) times a day. sacubitriL- 2023-0 Yes 1{tbl} Q.5D Take 1 Me thodi valsartan 5-[address] (Entresto) 09:36: mouth 2 Hosp heidi 97-103 mg 40 (two) l tablet per times a tablet day. metoprolol 2022-0 Yes 100mg Q.5D Take 1 Meth emerita tartrate 5-[address] (LOPRESSOR) 09:36: (100 mg Hos barb 100 mg 40 total) by l tablet mouth 2 (two) times a day. amIODarone 2022-0 Yes 100mg QD Take 0.5 Me thodi (PACERONE) 5-[address] 200 MG 09:36: (100 mg Hospita tablet 40 total) by l mouth daily. furosemide 2022-0 Yes 20mg Q.5D Take 1 Metho di (LASIX) 20 5-16 tablet (20 st mg tablet 00:00: mg total) Hos barb 00 by mouth 2 l (two) times a day. furosemide 2022-0 Yes 20mg Q.5D Take 1 Metho di (LASIX) 20 5-16 tablet (20 st mg tablet 00:00: mg total) Hos barb 00 by mouth 2 l (two) times a day. spironolact 2023- Yes 25mg QD Take 1 Met hodi one 5-16 05-16 tablet (25 st (Aldactone) 00:00: 04:59 mg total) Hospita 25 MG 00 :00 by mouth l tablet daily. spironolact 2023- Yes 25mg QD Take 1 Met hodi one 5-16 05-16 tablet (25 st (Aldactone) 00:00: 04:59 mg total) Hospita 25 MG 00 :00 by mouth l tablet daily. lisinopriL 2020- No 2.5mg QD Take [address] (PRINIVIL,Z 9-30 10-30 tablet Lukes ESTRIL) 2.5 00:00: 23:59 (2.5 mg Me dical MG tablet 00 :00 total) by Cente r mouth daily for 30 days. lisinopriL 2020-2020- No 2.5mg QD Take [address] (PRINIVIL,Z 9-30 10-30 tablet Lukes ESTRIL) 2.5 00:00: 23:59 (2.5 mg Me dical MG tablet 00 :00 total) by Cente r mouth daily for 30 days. lisinopriL 2020- No 2.5mg QD Take [address] (PRINIVIL,Z 07-12 tablet Lukes ESTRIL) 2.5 00:00: 23:59 (2.5 [...] 40mg Q.5D Take [address] e 07-11-28 tablet (40 Lukes (PROTONIX) 00:00: 23:59 mg total) M edical 40 MG 00 :00 by mouth 2 Center tablet (two) times daily for 60 days. pantoprazol 2020- No 40mg Q.5D Take [address] e 07-11-28 tablet (40 Lukes (PROTONIX) 00:00: 23:59 mg total) M edical 40 MG 00 :00 by mouth 2 Center tablet (two) times daily for 60 days. albuterol-i 2020- No 1{puff} Inhale [address] pratropium 07-11 puff by Lukes (COMBIVENT 00:00: 23:59 mouth via M edical RESPIMAT) 00 :00 inhaler Center 20-100 every 6 mcg/actuati (six) on Mist hours as inhaler needed for Wheezing or Shortness of Breath for up to 30 days. insulin 2020-0 2020- No 10U QD Inject [address] glargine 9-29 10-29 Units Lukes (LANTUS) 00:00: 23:59 subcutaneo Me dical 100 unit/mL 00 :00 usly every Ce nter injection morning for 30 days Use as directed. albuterol-i 2020-2020- No 1{puff} Inhale 1 [facility]I [...] Breath for up to 30 days. insulin 2020-0 2020- No 10U QD Inject [address] glargine 9-29 10-29 Units Lukes (LANTUS) 00:00: 23:59 subcutaneo Me dical 100 unit/mL 00 :00 usly every Ce nter injection morning for 30 days Use as directed. methylPREDN 2020-2020- No follow [facility] ISolone 9-29 10-06 package Lukes (MEDROL 00:00: 23:59 directions Med ical DOSEPACK) 4 00 :00 . Center mg tablet benzonatate 2020-0 2020- No 100mg Take 1 CH I [...] 00 :00 . Center mg tablet benzonatate 2020-2020- No 100mg Take [address] [...] tablet mouth daily for 5 days. azithromyci 0 2020- No 500mg QD Take [address] n 07-11- tablet [facility]ukes (ZITHROMAX) 00:00: 23:59 (500 mg Me dical 500 MG 00 :00 total) by Center tablet mouth daily for 5 days. azithromyci 2020- 202- No 500mg QD Take [address] n 07-11 tablet [facility]ukes (ZITHROMAX) 00:00: 23:59 (500 mg Me dical 500 MG 00 :00 total) by [place] tablet mouth daily for 5 days. Vital Signs Vital Name Observation Time Observation Value Comments Source WEIGHT 2021-06-29 10:00:00 89.359 kg HEIGHT 2021-06-28 22:00:00 167.6 cm WEIGHT 2021-06-28 22:00:00 90.311 kg WEIGHT 2021-06-29 10:00:00 89.359 kg HEIGHT 2021-06-28 22:00:00 167.6 cm WEIGHT 2021-06-28 22:00:00 90.311 kg Systolic blood 2023-02-25 14:35:00 156 mm[Hg] Method [facility] pressure Diastolic blood 2023-02-25 14:35:00 89 mm[Hg] Metho [facility] pressure Heart rate 2023-02-25 14:35:00 62 /min [facility] Body height 2023-02-25 14:35:00 170.2 cm [facility] Body weight 2023-02-25 14:35:00 75.479 kg [facility] BMI 2023-02-25 14:35:00 26.06 kg/m2 [facility] Systolic blood 2021-07-11 16:00:00 139 mm[Hg] [facility] Diastolic blood 2021-07-11 16:00:00 75 mm[Hg] [facility] Heart rate 2021-07-11 16:00:00 106 /min [facility] Body temperature 2021-07-11 16:00:00 36.83 Renetta [facility] Respiratory rate 2021-07-11 16:00:00 18 /min [facility] Oxygen saturation in 2021-07-11 16:00:00 96 /min [facility] Arterial blood by Medical Ce nter Pulse oximetry Body weight 2021-06-29 10:00:00 89.359 kg [facility] BMI 2021-06-29 10:00:00 31.80 kg/m2 [facility] Body height 2021-06-28 22:00:00 167.6 cm [facility] Procedures Procedure Date / Time Performing Clinician Source Performed ECHOCARDIOGRAM 2023-01-22 00:00:00 Raslan, Alejandro [facility] TRANSESOPHAGEAL ECHOCARDIOGRAM 2023-01-11 00:00:00 Alejandro Jose [facility] TRANSESOPHAGEAL [id number] 2022-11-08 00:00:00 Bell Izquierdo [facility] ECG 12-LEAD 2022-11-08 [facility] 2022-11-06 [facility] 12-LEAD 2022-11-06 [facility] 12-LEAD 2022-06-07 00:00:00 [facility] External Data POCT-GLUCOSE METER 2021-07-11 15:57:00 [facility] 2021-07-11 11:37:00 James Perez [facility] POCT-GLUCOSE METER 2021-07-11 06:08:00 [facility]UM 2021-07-11 04:18:00 Fuentes Garcia [facility] CBC W/PLT COUNT & AUTO 2021-07-11 04:18:00 [facility]IVE [facility]ABOLIC 2021-07-11 04:18:[address] [facility] CBC W/PLT COUNT & AUTO 2021-07-11 04:18:00 [facility] POCT-GLUCOSE METER 2021-07-10 20:33:00 James Perez [facility] POCT-GLUCOSE METER 2021-07-10 16:57:00 James Perez [facility] POCT-GLUCOSE METER 2021-07-10 11:38:00 James Perez [facility] XR CHEST 1 VIEW PORTABLE / 2021-07-10 08:16:00 Lydia John [facility] POCT-GLUCOSE METER 2021-07-10 06:08:00 [facility] 2021-07-10 04:26:00 Jamey Perezmary kate [facility] CBC W/PLT COUNT & AUTO 2021-07-10 04:26:00 Chris [facility] COMPREHENSIVE METABOLIC 2021-07-10 04:26:00 [facility] W/[facility]T COUNT & AUTO 2021-07-10 04:26:00 [facility] 2021-07-09 20:12:00 [facility] POCT-GLUCOSE METER 2021-07-09 17:01:00 [facility] POCT-GLUCOSE METER 2021-07-09 13:55:00 Chris [facility] POCT-GLUCOSE METER 2021-07-09 06:27:00 [facility] PREPARE LEUKO-REDUCED RBC 2021-07-08 23:54:00 hCris [facility] POCT-GLUCOSE METER 2021-07-08 20:10:00 Chris [facility] POCT-GLUCOSE METER 2021-07-08 15:26:00 [facility] POCT-GLUCOSE METER 2021-07-08 11:24:00 [facility] POCT-GLUCOSE METER 2021-07-08 06:25:00 Chris [facility] CBC W/PLT COUNT & AUTO 2021-07-08 04:41:00 Jamey Perezmary kate [facility] COMPREHENSIVE METABOLIC 2021-07-08 04:41:00 [facility] MAGNESIUM 2021-07-08 04:41:00 Jamey Perezmary kate [facility] CBC W/PLT COUNT & AUTO 2021-07-08 04:41:00 [facility] POCT-GLUCOSE METER 2021-07-07 21:46:00 [facility] POCT-GLUCOSE METER 2021-07-07 15:09:00 James [facility] POCT-GLUCOSE METER 2021-07-07 11:47:00 [facility] POCT-GLUCOSE METER 2021-07-07 06:19:00 [facility] CBC W/PLT COUNT & AUTO 2021-07-07 06:12:00 James Perez [facility] MAGNESIUM 2021-07-07 06:12:00 [facility] COMPREHENSIVE METABOLIC 2021-07-07 06:12:[address] [facility] CBC W/PLT COUNT & AUTO 2021-07-07 06:12:00 Jamse Perez [facility] TRANSFUSE LEUKO-REDUCED 2021-07-07 05:33:00 [facility] TRANSFUSE LEUKO-REDUCED 2021-07-06 23:14:00 James Perez [facility] RED BLOOD CELLS [facility] NM GI BLEED STUDY 2021-07-06 22:50:00 Kylie Flores [facility] POCT-GLUCOSE METER 2021-07-06 20:45:00 James Perez [facility] ABORH, MANUAL 2021-07-06 17:36:[address] [facility] TYPE AND SCREEN, AUTOMATED 2021-07-06 16:28:00 James Perez [facility] POCT-GLUCOSE METER 2021-07-06 16:00:00 [facility] CBC W/PLT COUNT & AUTO 2021-07-06 14:25:00 Jamey Perezmary kate [facility] CBC W/PLT COUNT & AUTO 2021-07-06 14:25:00 Jamey Perezmary kate [facility] (MANUAL DIFFERENTIAL) 2021-07-06 14:25:00 [facility] COMPREHENSIVE METABOLIC 2021-07-06 13:26:[address] [facility] MAGNESIUM 2021-07-06 13:26:00 Jamey Perezmary kate [facility] POCT-GLUCOSE METER 2021-07-06 12:05:00 [facility] XR CHEST 1 VIEW PORTABLE / 2021-07-06 06:53:00 Lydia John [facility] POCT-GLUCOSE METER 2021-07-06 06:27:00 James Perez [facility] POCT-GLUCOSE METER 2021-07-05 15:32:00 Jamey Perezmary kate [facility] POCT-GLUCOSE METER 2021-07-05 11:52:00 [facility] POCT-GLUCOSE METER 2021-07-05 06:13:00 James Perez [facility] MAGNESIUM 2021-07-05 04:26:00 Fuentes Garcia [facility] CBC W/PLT COUNT & AUTO 2021-07-05 04:26:00 Jamey Perezmary kate [facility] COMPREHENSIVE METABOLIC 2021-07-05 04:26:00 [facility] CBC W/PLT COUNT & AUTO 2021-07-05 04:26:00 James Perez [facility] CBC W/PLT COUNT & AUTO 2021-07-04 20:04:00 James Perez [facility] CBC W/PLT COUNT & AUTO 2021-07-04 20:04:00 James Perez [facility] (MANUAL DIFFERENTIAL) 2021-07-04 20:04:00 Chris [facility] POCT-GLUCOSE METER 2021-07-04 19:39:00 Chris, [facility] POCT-GLUCOSE METER 2021-07-04 16:02:00 Chris [facility] POCT-GLUCOSE METER 2021-07-04 11:41:00 Chris [facility] C-REACTIVE PROTEIN 2021-07-04 05:03:00 Dora [facility] D-DIMER 2021-07-04 05:03:00 Lydia John [facility] CBC W/PLT COUNT & AUTO 2021-07-04 05:03:00 Chris [facility] MAGNESIUM 2021-07-04 05:03:00 Chris [facility] BASIC METABOLIC PANEL (7) 2021-07-04 05:03:00 Chris [facility] CBC W/PLT COUNT & AUTO 2021-07-04 05:03:00 Chris [facility] POCT-GLUCOSE METER 2021-07-04 04:41:00 Chris [facility] POCT-GLUCOSE METER 2021-07-03 20:01:00 Chris [facility] POCT-GLUCOSE METER 2021-07-03 16:15:00 Chris [facility] POCT-GLUCOSE METER 2021-07-03 12:28:00 Chris [facility] XR CHEST 1 VIEW PORTABLE / 2021-07-03 06:27:00 Chris [facility] POCT-GLUCOSE METER 2021-07-03 06:21:00 Chris [facility] POCT-GLUCOSE METER 2021-07-02 21:02:00 Chris, Salman [facility] POCT-GLUCOSE METER 2021-07-02 15:20:00 Chris [facility] POCT-GLUCOSE METER 2021-07-02 11:54:00 Chris [facility] CT CHEST FOR PULMONARY 2021-07-02 10:42:00 Lydia John [facility] EMBOLUS [facility] POCT-GLUCOSE METER 2021-07-02 06:34:00 Chris [facility] POCT-GLUCOSE METER 2021-07-01 21:27:00 Chris [facility] POCT-GLUCOSE METER 2021-07-01 16:36:00 Chris [facility] VENOUS DOPPLER LEGS 2021-07-01 12:20:00 Lydia John [facility] POCT-GLUCOSE METER 2021-07-01 11:43:00 James Perez [facility] CBC W/PLT COUNT & AUTO 2021-07-01 09:50:00 Lydia John [facility] COMPREHENSIVE METABOLIC 2021-07-01 09:50:[address] [facility] C-REACTIVE PROTEIN 2021-07-01 09:50:00 Lydia John [facility] D-DIMER 2021-07-01 09:50:00 Lydia John [facility] CBC W/PLT COUNT & AUTO 2021-07-01 09:50:00 Lydia John [facility] (MANUAL DIFFERENTIAL) 2021-07-01 09:50:00 Lydia John [facility] POCT-GLUCOSE METER 2021-07-01 06:32:00 Chris [facility] POCT-GLUCOSE METER 2021-06-30 21:10:00 Chris [facility] POCT-GLUCOSE METER 2021-06-30 16:17:00 James Perez [facility] POCT-GLUCOSE METER 2021-06-30 11:38:00 James Perez [facility] POCT-GLUCOSE METER 2021-06-30 06:21:00 James Perez [facility] XR CHEST 1 VIEW PORTABLE / 2021-06-30 06:07:00 James Perez [facility] PROTHROMBIN TIME/INR 2021-06-30 04:19:00 Ann Marie [facility] HEPATIC FUNCTION PANEL 2021-06-30 04:19:00 PARTH Jesus [facility] LIPID PANEL 2021-06-30 04:19:00 Ann Marie [facility] CBC W/PLT COUNT & AUTO 2021-06-30 04:19:[address] [facility] DIFFERENTIAL Merged With [facility] COMPREHENSIVE METABOLIC 2021-06-30 04:19:[address] [facility] MAGNESIUM 2021-06-30 04:19:00 James Perez [facility] CBC W/PLT COUNT & AUTO 2021-06-30 04:19:[address] [facility] DIFFERENTIAL Merged With [facility] POCT-GLUCOSE METER 2021-06-29 19:20:00 James Perez [facility] POCT-GLUCOSE METER 2021-06-29 15:59:00 [facility] 2021-06-29 12:23:00 Ion Santos [facility] C-REACTIVE PROTEIN 2021-06-29 12:23:00 Lydia John [facility] POCT-GLUCOSE METER 2021-06-29 11:06:00 James Perez [facility] POTASSIUM, RANDOM URINE 2021-06-29 08:54:00 Alroumoh, [facility] OSMOLALITY, URINE 2021-06-29 08:54:00 [facility] SODIUM, RANDOM URINE 2021-06-29 08:54:00 [facility] PROTEIN, RANDOM URINE 2021-06-29 08:54:00 [facility] CREATININE, RANDOM URINE 2021-06-29 08:54:00 [facility] URINALYSIS W/ MICROSCOPIC 2021-06-29 08:54:00 [facility] [place] [facility] XR CHEST 1 VIEW PORTABLE / 2021-06-29 05:59:00 Abbey Jesus [facility] BEDSIDE Merged With [facility] HEPATIC FUNCTION PANEL 2021-06-29 03:37:[address] [facility] LIPID PANEL 2021-06-29 03:37:00 Ann Marie [facility] CBC W/PLT COUNT & AUTO 2021-06-29 03:37:00 Ann Marie [facility] DIFFERENTIAL Merged With [facility] PROTHROMBIN TIME/INR 2021-06-29 03:37:00 Ann Marie [facility] BASIC METABOLIC PANEL (7) 2021-06-29 03:37:00 Lydia John [facility] CBC W/PLT COUNT & AUTO 2021-06-29 03:37:00 Ann Marie [facility] DIFFERENTIAL Merged With [facility] Plan of Care Planned Activity Planned Date Details Comments Source Future Scheduled 2023-06-13 Influenza Vaccine [facility] Test 00:00:00 (Season Ended) [code = Medic [facility] Influenza Vaccine (Season Ended)] Future Scheduled 2023-06-13 Influenza Vaccine (#1) [facility] 00:[facility]:00 [code = Influenza Medical Ce nter Vaccine (#1)] Future Scheduled 2023-05-12 Screening for [facility] Test 12:09:30 malignant neoplasm of colon (procedure) [code = 490534310] Future Scheduled 2023-05-12 Screening for [facility] Test 12:09:30 malignant neoplasm of colon (procedure) [code = 538549491] Future Scheduled 2023-05-12 Screening for [facility] Test 12:09:30 malignant neoplasm of colon (procedure) [code = 356406659] Future Scheduled 2023-05-12 COVID-19 VACCINE (#1) [facility] Test 12:09:30 [code = COVID-19 VACCINE (#1)] Future Scheduled 2023-05-12 65+ PNEUMOCOCCAL [facility] Hospital Test 12:09:30 VACCINE (1 - PCV) [code = 65+ PNEUMOCOCCAL VACCINE (1 - PCV)] Future Scheduled 2023-05-12 Hepatitis C screening [facility] Test 12:09:30 (procedure) [code = 886560567] Future Scheduled 2023-05-12 BREAST CANCER [facility] Test 12:09:30 SCREENING [code = BREAST CANCER SCREENING] Future Scheduled 2023-05-12 Screening for [facility] Test 12:09:30 malignant neoplasm of colon (procedure) [code = 380272933] Future Scheduled 2023-05-12 Screening for [facility] Test 12:09:30 malignant neoplasm of colon (procedure) [code = 568554563] Future Scheduled 2023-05-12 [facility] 12:09:30 of 2) [code = SHINGLES VACCINES (1 of 2)] Future Scheduled 2023-05-12 INFLUENZA VACCINE Method [facility] Test 12:09:30 [code = INFLUENZA VACCINE] Future Scheduled 2023-04-07 [facility] Test 17:56:27 malignant neoplasm of colon (procedure) [code = 023147094] Future Scheduled 2023-04-07 [facility] Test 17:56:27 malignant neoplasm of colon (procedure) [code = 245106273] Future Scheduled 2023-04-07 [facility] Test 17:56:27 malignant neoplasm of colon (procedure) [code = 293583476] Future Scheduled 2023-04-07 COVID-19 VACCINE (#1) [facility] Test 17:56:27 [code = COVID-19 VACCINE (#1)] Future Scheduled 2023-04-07 65+ PNEUMOCOCCAL [facility] Hospital Test 17:56:27 VACCINE (1 - PCV) [code = 65+ PNEUMOCOCCAL VACCINE (1 - PCV)] Future Scheduled 2023-04-07 [facility] C [facility] Test 17:56:27 (procedure) [code = 839558801] Future Scheduled 2023-04-07 BREAST CANCER [facility] Test 17:56:27 SCREENING [code = BREAST CANCER SCREENING] Future Scheduled 2023-04-07 Screening for [facility] Test 17:56:27 malignant neoplasm of colon (procedure) [code = 941495955] Future Scheduled 2023-04-07 Screening for [facility] Test 17:56:27 malignant neoplasm of colon (procedure) [code = 709072306] Future Scheduled 2023-04-07 SHINGLES VACCINES ([address] [facility] Hospital Test 17:56:27 of 2) [code = SHINGLES VACCINES (1 of 2)] Future Scheduled 2023-04-07 INFLUENZA VACCINE Method [facility] Test 17:56:27 [code = INFLUENZA VACCINE] [...] 00:00:00 (1 of 1 - Medical Center [id number] PCV13) [code = PNEUMOCOCCAL 65+ YRS (1 of 1 - [id number] PCV13)] Future Scheduled 2013 PNEUMOCOCCAL 65+ YRS [facility] Test 00:00:00 (1 of 1 - Medical Center [id number] PCV13) [code = PNEUMOCOCCAL 65+ YRS (1 of 1 - [id number] PCV13)] Future Scheduled 1998 SHINGLES VACCINES (1 [...] Medica l Center breast (procedure) [code = 543299734] Future Scheduled [address] [facility] 00:[facility]:00 malignant neoplasm of Medica l Center colon (procedure) [code = 955309901] Future Scheduled [address] [facility] Test 00:00:00 malignant neoplasm of Medica l Center breast (procedure) [code = 508347000] Future Scheduled [address] [facility] Test 00:00:00 malignant neoplasm of Medica l Center colon (procedure) [code = 465955607] Future Scheduled [address] [facility] Test 00:00:00 [facility] breast (procedure) [code = 226558651] Future Scheduled [address] [facility] 00:00:00 (combo) [code = CT Medical C enter Colonography (combo)] Future Scheduled [address] [facility] 00[facility]00 [facility] colon (procedure) [code = 960432940] Future Scheduled [address] [facility] 00:[facility]:00 [facility] colon (procedure) [code = 418015385] Future Scheduled 1948 DXA SCAN [code = DXA [facility] 00:[facility]:00 SCAN] [facility] Future Scheduled [address] [facility] 00:[facility]:00 [facility] colon (procedure) [code = 788212899] Future Scheduled [address] [facility] 00:00:00 [facility] colon (procedure) [code = 086356299] Future Scheduled 1948 Sigmoidoscopy [facility]code [facility] Future Scheduled [address] [facility] 00:00:00 [facility] breast (procedure) [code = 435029804] Future Scheduled [address] [facility] 00:00:00 (combo) [code = CT Medical C enter Colonography (combo)] Future Scheduled [address] [facility] 00:00:00 [facility] colon (procedure) [code = 252090407] Future Scheduled [address] [facility] 00:00:00 [facility] colon (procedure) [code = 144907169] Future Scheduled 1948 DXA SCAN [code = DXA [facility] 00:[facility] SCAN] [facility] Future Scheduled [address] [facility] 00:00:00 [facility] colon (procedure) [code = 026306601] Future Scheduled [address] [facility] 00:00:00 [facility] colon (procedure) [code = 434177030] Future Scheduled 1948 S[facility]oidoscopy [facility] Future Scheduled [address] [facility] 00:00:00 [facility] breast (procedure) [code = 628403276] Future Scheduled [address] [facility] 00:00:00 (combo) [code = CT Medical C enter Colonography (combo)] Future Scheduled [address] [facility] 00:00:00 [facility] colon (procedure) [code = 809278786] Future Scheduled [address] [facility] 00:00:00 [facility] colon (procedure) [code = 076980891] Future Scheduled 1948 DXA SCAN [code = DXA [facility] 00:00:00 SCAN] [facility] Future Scheduled [address] [facility] 00:00:00 [facility] colon (procedure) [code = 506785135] Future Scheduled [address] [facility] 00:00:00 [facility] colon (procedure) [code = 609557208] Future Scheduled 1948 Sigmoidoscopy [facility]code [facility]] [facility] Future Scheduled [address] [facility] 00:00:00 [facility] breast (procedure) [code = 098333159] Future Scheduled [address] [facility] 00:00:00 (combo) [code = CT Medical C enter Colonography (combo)] Future Scheduled [address] [facility] 00:00:00 [facility] colon (procedure) [code = 122643831] Future Scheduled [address] [facility] 00:00:00 [facility] colon (procedure) [code = 249162906] Future Scheduled 1948 DXA SCAN [code = DXA [facility] 00:00:00 SCAN] [facility] Future Scheduled [address] [facility] 00:00:00 [facility] colon (procedure) [code = 717892674] Future Scheduled [address] [facility] 00:00:00 [facility] colon (procedure) [code = 718139002] Future Scheduled 1948 S[facility]oidoscopy [facility]code [facility] Future Scheduled [address] [facility] 00:00:00 (combo) [code = CT Medical C enter Colonography (combo)] Future Scheduled [address] [facility] 00:00:00 [facility] colon (procedure) [code = 980968228] Future Scheduled [address] [facility] 00:00:00 [facility] colon (procedure) [code = 379421876] Future Scheduled 1948 DXA SCAN [code = DXA [facility] 00:00:00 SCAN] [facility] Future Scheduled [address] [facility] 00:00:00 [facility] colon (procedure) [code = 434948201] Future Scheduled [address] [facility] 00:00:00 [facility] colon (procedure) [code = 835185488] Future Scheduled 1948 Sigmoidoscopy [code = [facility]] [facility] Future Scheduled [address] [facility] 00:00:00 [facility] breast (procedure) [code = 911714824] Encounters Start End Encounter Admission Attending Care Care Encounter Source Date/Time Date/Time Type Type Clinicians Facility Department ID 2021-08-30 Inpatient [id number] 2021-07-22 Inpatient UR JAMES PEREZ [facility] [id number] [facility] 12:46:41 2023-04-07 2023-04-07 Orders Provider, 1.2.840.1 [id number] Methodi 00:00:00 00:00:00 Only Generic 76963.1.[address] External 3.430.2.7 Hospi ta Data .3.398866 l .8 2023-04-07 2023-04-07 Orders Provider, 1.2.840.1 [id number] 2100 [id number] Methodi 00:00:00 00:00:00 Only Generic 30874.1.[address] External 3.430.2.7 Hospi ta Data .3.528252 l .8 2023-02-25 2023-02-25 Office Palomo, 1.2.840.1 [id number] 8752 Methodi 10:15:00 10:36:14 Visit Ming 01542.1.[address] 3.430.2.7 Hospit a .3.018333 l .8 2023-02-25 2023-02-25 Office Palomo, 1.2.840.1 [id number] 8976 Methodi 10:15:00 10:36:14 Visit Ming 88333.1.[address] 3.430.2.7 Hospit a .3.708443 l .8 2023-02-25 2023-02-25 Travel 1.2.840.1 1.2.675.529 3246 [id number] Methodi 00:00:00 00:00:[address] 3.430.2.7 0.2.7.3.698 Ho spita .3.042888 084.8 l .8 2023-02-25 2023-02-25 Travel 1.2.840.1 1.2.555.986 0906 [id number] Methodi 00:00:00 00:00:[address] 3.430.2.7 0.2.7.3.698 Ho spita .3.197608 084.8 l .8 2023-02-24 2023-02-24 Orders James Perez 1.2.840.1 [id number] Methodi 00:00:00 00:00:00 Only Juancho 48542.1.[address] 3.430.2.7 Hospit a .3.442770 l .8 2023-02-24 2023-02-24 Orders James Perez 1.2.840.1 [id number] Methodi 00:00:00 00:00:00 Only Juancho 46716.1.[address] 3.430.2.7 Hospit a .3.265665 l .8 2023-01-21 2023-01-21 Office Palomo, 1.2.840.1 [id number] 8136 Methodi 14:15:00 14:45:00 Visit Ming 96890.1.[address] 3.430.2.7 Hospit a .3.845303 l .8 2023-01-21 2023-01-21 Office Palomo, 1.2.840.1 [id number] 5572 Methodi 14:15:00 14:45:00 Visit Ming 55286.1.[address] 3.430.2.7 Hospit a .3.119275 l .8 2023-01-21 2023-01-21 Travel 1.2.840.1 1.2.611.484 3504 [id number] Methodi 00:00:00 00:00:[address] 3.430.2.7 0.2.7.3.698 Ho spita .3.579441 084.8 l .8 2023-01-21 2023-01-21 Travel 1.2.840.1 1.2.437.783 1594 [id number] Methodi 00:00:00 00:00:[address] 3.430.2.7 0.2.7.3.698 Ho spita .3.709402 084.8 l .8 2022-12-25 2022-12-25 Travel 1.2.840.1 1.2.673.564 0114 [id number] Methodi 00:00:00 00:00:[address] 3.430.2.7 0.2.7.3.698 Ho spita .3.063700 084.8 l .8 2022-12-25 2022-12-25 Travel 1.2.840.1 1.2.299.435 1031 [id number] Methodi 00:00:00 00:00:[address] 3.430.2.7 0.2.7.3.698 Ho spita .3.874464 084.8 l .8 2021-06-28 2021-07-11 [facility] James Perez [facility] [id number] 20 [id number] [facility] 22:13:00 23:11:00 Encounter [facility] 2021-06-29 2021-06-29 Travel [facility] [id number] [facility] 00:00:00 00:00:00 [facility] Results Test Description Test Time Test Comments Results Result Comments Source POC-Glucose meter 2021-07-11 16:08:47 Test Item Value Reference Range Interpretation Comme nts POC-Glucose Meter (test code = 228 mg/dL 70-110 H : TESTED AT [facility] [address] [place] [address] 153) [facility] [address]: Hand Rounder/Techni unique ID = [id number] for Ishmael, Ayin or Lab Interpretation (test code = Abnormal 72223-3) [facility] [id number] 16:08:47 Test Item Value Reference Range Interpretation Comments POC-Glucose Meter (test 228 mg/dL 70-110 H : TE STED AT [facility] code = 1538) [address] [place] [address]: Hand Rounder/Techni unique ID = [id number] for Ishmael, Ayin or Lab Interpretation (test Abnormal code = 56037-8) [facility]-Glucose [id number] 16:08:47 Test Item Value Reference Range Interpretation Comments POC-Glucose Meter (test 228 mg/dL 70-110 H : [facility] [address] [place] [address]: Hand Rounder/Techni unique ID = [id number] for Ishmael, Ayin or Lab Interpretation (test Abnormal code = 56287-2) [facility]-GLUCOSE [id number] 16:08:47 Test Item Value Reference Range Interpretation Comments POC-GLUCOSE METER 228 mg/dL 70-110 H : TESTED A T [facility] 1317 (BEAKER) (test code [address] [place], = 1538) [place] [address]: Hand Rounder/Techni unique ID = [id number] for Agatalakesha olivierlisa Abhinavvladr POCT-GLUCOSE [id number] 11:49:12 Test Item Value Reference Range Interpretation Comments POC-GLUCOSE METER 122 mg/dL 70-110 H : TESTED A T [facility] 1317 (BEAKER) (test [facility] [address] [facility] = [facility] [place] [address]: Hand Rounder/Techni unique ID = [id number] for Agatalakesha olivierneAbhinavinor Comprehensive metabolic [id number] 06:20:58 Test Item Value Reference Range Interpretation Comments Protein, Total (test 4.8 See_Comment L [Autom ated code = 2885-2) message] The system which generated this result transmitted reference range : 6.0 - 8.5 gm/dL . The reference range was not used to interpr et this result as normal/abnormal . Albumin (test code = 2.6 g/dL 3.5-5.0 L 63300-4) Alkaline Phosphatase 49 U/L 30-115 (test code = 6768-6) Total Bilirubin 0.5 mg/dL 0.1-1.2 (test code = 1974-2) Sodium (test code = 142 meq/L 774-426 7098-2) Potassium (test code 3.3 meq/L 3.6-5.5 L = 2823-3) Chloride (test code 110 meq/L 98-106 H = 2075-0) CO2 (test code = 22 meq/L -29 2027-9) BUN (test code = 13 mg/dL - 3094-0) Creatinine (test 0.64 mg/dL 0.50-1.20 code = 2160-0) Glucose (test code = 135 mg/dL 70-110 H 2345-7) Calcium (test code = 8.2 mg/dL 8.5-10.5 L 25796-8) AST (test code = 14 U/L 5-40 1920-8) ALT (test code = 32 U/L -50 1742-6) EGFR (test code = 111 mL/min/1[place]73 [place] [address]-7) m NOT ACCURATE CREATININE CLEARANCE IN PREDICTING GLOMERULAR FILTRATION RATE . ESTIMATED GFR I S NOT APPLICABLE FOR DIALYSIS PATIENTS. LINDY (test code = Hand Rounder ID - LINDY) LITOOperator ID - LITOOperator ID - LITOOperator ID - LITOOperator ID - LITOOperator ID - LITOOperator ID - LITOOperator ID - LITOOperator ID - LITOOperator ID - LITOOperator ID - LITOOperator ID - LITOOperator ID - LITOOperator ID - LITOOperator ID - LITOOperator ID - FLORENCIO Lab Interpretation Abnormal (test code = 50404-2) [facility] [id number] 06:20:58 Test Item Value Reference Range Interpretation Comments Protein, Total (test 4.8 See_Comment L [Autom ated code = 2885-2) message] The system which generated this result transmitted reference range : 6.0 - 8.5 gm/dL . The reference range was not used to interpr et this result as normal/abnormal . Albumin (test code = 2.6 g/dL 3.5-5.0 L 41024-5) Alkaline Phosphatase 49 U/L 30-115 (test code = 6768-6) Total Bilirubin 0.5 mg/dL 0.1-1.2 (test code = 1974-2) Sodium (test code = 142 meq/L 978-958 1114-2) Potassium (test code 3.3 meq/L 3.6-5.5 L = 2823-3) Chloride (test code 110 meq/L 98-106 H = 2075-0) CO2 (test code = 22 meq/L -2027-9) BUN (test code = 13 mg/dL - 3094-0) Creatinine (test 0.64 mg/dL 0.50-1.20 code = 2160-0) Glucose (test code = 135 mg/dL 70-110 H 2345-7) Calcium (test code = 8.2 mg/dL 8.5-10.5 L 72991-3) AST (test code = 14 U/L -40 192-8) ALT (test code = 32 U/L -50 1742-6) EGFR (test code = 111 mL/min/1.[place] [address]-9) m NOT ACCURATE CREATININE CLEARANCE IN PREDICTING GLOMERULAR FILTRATION RATE . ESTIMATED GFR I S NOT APPLICABLE FOR DIALYSIS PATIENTS. LINDY (test code = Hand Rounder ID - LINDY) LITOOperator ID - LITOOperator ID - LITOOperator ID - LITOOperator ID - LITOOperator ID - LITOOperator ID - LITOOperator ID - LITOOperator ID - LITOOperator ID - LITOOperator ID - LITOOperator ID - LITOOperator ID - LITOOperator ID - LITOOperator ID - LITOOperator ID - FLORENCIO Lab Interpretation Abnormal (test code = 42129-7) [facility] [id number] 06:20:58 Test Item Value Reference Range Interpretation Comments Protein, Total (test 4.8 See_Comment L [Autom ated code = 2885-2) message] The system which generated this result transmitted reference range : 6.0 - 8.5 gm/dL . The reference range was not used to interpr et this result as normal/abnormal . Albumin (test code = 2.6 g/dL 3.5-5.0 L 44491-1) Alkaline Phosphatase 49 U/L 30-115 (test code = 6768-6) Total Bilirubin 0.5 mg/dL 0.1-1.2 (test code = 1974-2) Sodium (test code = 142 meq/L 522-849 0768-2) Potassium (test code 3.3 meq/L 3.6-5.5 L = 2823-3) Chloride (test code 110 meq/L 98-106 H = 2075-0) CO2 (test code = 22 meq/L 20-29 2027-9) BUN (test code = 13 mg/dL 10- 3094-0) Creatinine (test 0.64 mg/dL 0.50-1.20 code = 2160-0) Glucose (test code = 135 mg/dL 70-110 H 2345-7) Calcium (test code = 8.2 mg/dL 8.5-10.5 L 49720-4) AST (test code = 14 U/L 5-40 1920-8) ALT (test code = 32 U/L 5-50 1742-6) EGFR (test code = 111 mL/min/1.[place] [address]-9) m NOT ACCURATE CREATININE CLEARANCE IN PREDICTING GLOMERULAR FILTRATION RATE . ESTIMATED GFR I S NOT APPLICABLE FOR DIALYSIS PATIENTS. LINDY (test code = Hand Rounder ID - LINDY) LITOOperator ID - LITOOperator ID - LITOOperator ID - LITOOperator ID - LITOOperator ID - LITOOperator ID - LITOOperator ID - LITOOperator ID - LITOOperator ID - LITOOperator ID - LITOOperator ID - LITOOperator ID - LITOOperator ID - LITOOperator ID - LITOOperator ID - FLORENCIO Lab Interpretation Abnormal (test code = 63324-9) [facility] [id number] 06:20:58 Test Item Value Reference Range Interpretation [...] S NOT APPLICABLE FOR DIALYSIS PATIEN TS. Hand Rounder ID - LITOOperator ID - LITOOperator ID [...] code [address], = 1538) [facility] 77 478: Hand Rounder/Techni unique ID = [id number] for Elizabeth Joshua [id number] 06:19:13 Test Item Value Reference Range Interpretation Comments Magnesium (test code = 1.7 mg/dL 1.5-3.0 66665-5) LINDY (test code = LINDY) Hand Rounder ID - LITOOperator ID - LITOOperator ID - LITOOperator ID - FLORENCIO Lab Interpretation (test Normal code = 84560-9) [facility]2021-09-29 06:19:13 Test Item Value Reference Range Interpretation Comments Magnesium (test code = 1.7 mg/dL 1.5-3.0 96791-8) LINDY (test code = LINDY) Hand Rounder ID - LITOOperator ID - LITOOperator ID - LITOOperator ID - FLORENCIO Lab Interpretation (test Normal code = 36254-8) [facility]2021-09-29 06:19:13 Test Item Value Reference Range Interpretation Comments Magnesium (test code = 1.7 mg/dL 1.5-3.0 82740-7) LINDY (test code = LINDY) Hand Rounder ID - LITOOperator ID - LITOOperator ID - LITOOperator ID - FLORENCIO Lab Interpretation (test Normal code = 39475-8) [facility]2021-09-29 06:19:13 Test Item Value Reference Range Interpretation Comments MAGNESIUM (BEAKER) (test code = 1.7 mg/dL 1.5-3.0 627) Hand Rounder ID - LITOOperator ID - LITOOperator ID - LITOOperator ID - LITOCBC with platelet count + automated [id number] 05:50:18 Test Item Value Reference Range Interpretation Comments WBC (test code = 6690-2) 6.1 See_Comment [A utomated message] The system [place] generated this result transmitted ref erence range: 4.0 - 10 .0 K/L. The refe rence range was not u sed to interpret this result as normal/abnor mal. RBC (test code = 789-8) 2.98 See_Comment L [Au tomated message] The system [place] [employer] generated this result transmitted ref erence range: 4.00 - 5 .00 M/L. The refe rence range was not u sed to interpret this result as normal/abnor mal. MCHC (test code = 786-4) 31.8 See_Comment L [A utomated message] The system [place] [employer] generated this result transmitted ref erence range: [...] L [Aut omated message] 777-3) The system [place] [employer] generated this result transmitted ref erence range: 150 - 43 0 K/CU MM. The referen ce range was not u sed to interpret this result as normal/abnor mal. MPV (test code = 10.8 fL 6.0-11.5 70967-2) nRBC (test code = 413) 1 See_Comment H [Aut omated message] The system [place] [employer] generated this result transmitted ref erence range: [...] See_Comment [Aut omated message] 670) The system [place] [employer] generated this result transmitted ref erence range: 1.80 - 8 .00 K/L. The refe rence range was not u sed to interpret this result as normal/abnor mal. # Lymphs (test code = 1.73 See_Comment [Auto mated message] 414) The system [place] [employer] generated this result transmitted ref erence range: 1.48 - 4 .50 K/L. The refe rence range was not u sed to interpret this result as normal/abnor mal. # Monos (test code = 0.38 See_Comment [Autom ated message] 415) The system [place] [employer] generated this result transmitted ref erence range: 0.00 - 1 .30 K/L. The refe rence range was not u sed to interpret this result as normal/abnor mal. # Eos (test code = 416) 0.02 See_Comment [Au tomated message] The system [place] [employer] generated this result transmitted ref erence range: 0.00 - 0 .50 K/L. The refe rence range was not u sed to interpret this result as normal/abnor mal. # Baso (test code = 417) 0.01 See_Comment [A utomated message] The system [place] [employer] generated this result transmitted ref erence range: 0.00 - 0 .20 K/L. The refe rence range was not u sed to interpret this result as normal/abnor mal. Immature 2 % 0-0 H Granulocytes-Relative (test code = 2801) Lab Interpretation (test Abnormal code = 14230-2) [facility] with platelet count + automated [id number] 05:50:18 Test Item Value Reference Range Interpretation Comments WBC (test code = 6690-2) 6.1 See_Comment [A utomated message] The system [place] [employer] generated this result transmitted ref erence range: 4.0 - 10 .0 K/L. The refe rence range was not u sed to interpret this result as normal/abnor mal. RBC (test code = 789-8) 2.98 See_Comment L [Au tomated message] The system [place] [employer] generated this result transmitted ref erence range: 4.00 - 5 .00 M/L. The refe rence range was not u sed to interpret this result as normal/abnor mal. MCHC (test code = 786-4) 31.8 See_Comment L [A utomated message] The system [place] [employer] generated this result transmitted ref erence range: [...] L [Aut omated message] 777-3) The system [place] [employer] generated this result transmitted ref erence range: 150 - 43 0 K/CU MM. The referen ce range was not u sed to interpret this result as normal/abnor mal. MPV (test code = 10.8 fL 6.0-11.5 06265-0) nRBC (test code = 413) 1 See_Comment H [Aut omated message] The system [place] [employer] generated this result transmitted ref erence range: [...] See_Comment [Aut omated message] 670) The system [place] [employer] generated this result transmitted ref erence range: 1.80 - 8 .00 K/L. The refe rence range was not u sed to interpret this result as normal/abnor mal. # Lymphs (test code = 1.73 See_Comment [Auto mated message] 414) The system [place] [employer] generated this result transmitted ref erence range: 1.48 - 4 .50 K/L. The refe rence range was not u sed to interpret this result as normal/abnor mal. # Monos (test code = 0.38 See_Comment [Autom ated message] 415) The system [place] [employer] generated this result transmitted ref erence range: 0.00 - 1 .30 K/L. The refe rence range was not u sed to interpret this result as normal/abnor mal. # Eos (test code = 416) 0.02 See_Comment [Au tomated message] The system [place] [employer] generated this result transmitted ref erence range: 0.00 - 0 .50 K/L. The refe rence range was not u sed to interpret this result as normal/abnor mal. # Baso (test code = 417) 0.01 See_Comment [A utomated message] The system [place] [employer] generated this result transmitted ref erence range: 0.00 - 0 .20 K/L. The refe rence range was not u sed to interpret this result as normal/abnor mal. Immature 2 % 0-0 H Granulocytes-Relative (test code = 2801) Lab Interpretation (test Abnormal code = 44557-1) [facility] with platelet count + automated [id number] 05:50:18 Test Item Value Reference Range Interpretation Comments WBC (test code = 6690-2) 6.1 See_Comment [A utomated message] The system [place] [employer] generated this result transmitted ref erence range: 4.0 - 10 .0 K/L. The refe rence range was not u sed to interpret this result as normal/abnor mal. RBC (test code = 789-8) 2.98 See_Comment L [Au tomated message] The system [place] [employer] generated this result transmitted ref erence range: 4.00 - 5 .00 M/L. The refe rence range was not u sed to interpret this result as normal/abnor mal. MCHC (test code = 786-4) 31.8 See_Comment L [A utomated message] The system [place] [employer] generated this result transmitted ref erence range: [...] = 90 See_Comment L [Aut omated message] 517-3) The system [place] [employer] generated this result transmitted ref erence range: 150 - 43 0 K/CU MM. The referen ce range was not u sed to interpret this result as normal/abnor mal. MPV (test code = 10.8 fL 6.0-11.5 16033-8) nRBC (test code = 413) 1 See_Comment H [Aut omated message] The system [place] [employer] generated this result transmitted ref erence range: [...] See_Comment [Aut omated message] 670) The system [place] [employer] generated this result transmitted ref erence range: 1.80 - 8 .00 K/L. The refe rence range was not u sed to interpret this result as normal/abnor mal. # Lymphs (test code = 1.73 See_Comment [Auto mated message] 414) The system [place] [employer] generated this result transmitted ref erence range: 1.48 - 4 .50 K/L. The refe rence range was not u sed to interpret this result as normal/abnor mal. # Monos (test code = 0.38 See_Comment [Autom ated message] 415) The system [place] [employer] generated this result transmitted ref erence range: 0.00 - 1 .30 K/L. The refe rence range was not u sed to interpret this result as normal/abnor mal. # Eos (test code = 416) 0.02 See_Comment [Au tomated message] The system [place] [employer] generated this result transmitted ref erence range: 0.00 - 0 .50 K/L. The refe rence range was not u sed to interpret this result as normal/abnor mal. # Baso (test code = 417) 0.01 See_Comment [A utomated message] The system [place] [employer] generated this result transmitted ref erence range: 0.00 - 0 .20 K/L. The refe rence range was not u sed to interpret this result as normal/abnor mal. Immature 2 % 0-0 H Granulocytes-Relative (test code = 2801) Lab Interpretation (test Abnormal code = 03044-7) [facility] W/PLT COUNT & AUTO [id number] 05:50:18 Test Item Value Reference Range Interpretation [...] PERCENT (BEAKER) (test code = 2801) POCT-GLUCOSE [id number] 20:50:37 Test Item Value Reference Range Interpretation Comments POC-GLUCOSE METER 176 mg/dL 70-110 H : TESTED A T [facility]17 (BEAKER) (test code [address], = 1538) [place] [address]: Hand Rounder/Techni unique ID = [id number] for Elizabeth Joshua POCT-GLUCOSE [id number] 17:10:15 Test Item Value Reference Range Interpretation Comments POC-GLUCOSE METER 223 mg/dL 70-110 H : TESTED A T [facility] (BEAKER) (test code [address], = 1538) [place] [address]: Hand Rounder/Techni unique ID = [id number] for Juany r, Breanna POCT-GLUCOSE [id number] 11:50:56 Test Item Value Reference Range Interpretation Comments POC-GLUCOSE METER 241 mg/dL 70-110 H : TESTED A T [facility] (BEAKER) (test code [address], = 1538) [place] [address]: Hand Rounder/Techni unique ID = [id number] for Juany r, Breanna RAD, CHEST, 1 VIEW, NON [id number] 09:19:00Reason for exam:->[facility] : 1950 Sex: FFINAL REPORT Chest, 1 view, 07/10/2021 8:16 AM. History: Hypoxia, Covid pneumonia. Comparison: 07/06/2021. Discussion: The cardiac silhouette is stable. Bilateral interstitial and patchy airspace opacities are unchanged. There is no pneumothorax or pleural effusion. The soft tissues and osseous structures are intact. IMPRESSION: Bilateral pneumonia without significant change. Signed: Francisco Perez Verified Date/Time: 07/10/2021 09:19:31 Reading Location: [facility] Radiology Reading Room POCT-GLUCOSE [id number] 06:20:04 Test Item Value Reference Range Interpretation Comments POC-GLUCOSE METER 207 mg/dL 70-110 H : TESTED A T [facility] 1317 (BEAKER) (test code [address], = 1538) [facility] 77 [address]: Hand Rounder/Techni uniuqe ID = [id number] for Jesus Gil COMPREHENSIVE METABOLIC [id number] 05:46:05 Test Item Value Reference Range Interpretation [...] S NOT APPLICABLE FOR DIALYSIS PATIEN TS. Hand Rounder ID - [id number] ID - [id number] ID - [id number] ID - [id number] ID - [id number] ID - [id number] ID - [id number] ID - [id number] ID - [id number] ID - [id number] ID - [id number] ID - [id number] ID - [id number] ID - [id number] ID - [id number] ID - [id number] 05:44:15 Test Item Value Reference Range Interpretation Comments MAGNESIUM (BEAKER) (test code = 2.0 mg/dL 1.5-3.0 627) Hand Rounder ID - [id number] ID - [id number] ID - [id number] ID - [id number] W/PLT COUNT & AUTO [id number] 05:11:45 Test Item Value Reference Range Interpretation [...] PERCENT (BEAKER) (test code = 2801) POCT-GLUCOSE [id number] 20:27:38 Test Item Value Reference Range Interpretation Comments POC-GLUCOSE METER 191 mg/dL 70-110 H : TESTED A T [facility] (BEAKER) (test code [facility] [address], = 1538) [facility] 77 478: Hand Rounder/Techni unique ID = [id number] for Jesus Gil POCT-GLUCOSE [id number] 18:34:59 Test Item Value Reference Range Interpretation Comments POC-GLUCOSE METER 241 mg/dL 70-110 H : TESTED A T [facility] (BEAKER) (test code [address], = 1538) [place] [address] 478: Hand Rounder/Techni unique ID = [id number] for Juany r, Breanna POCT-GLUCOSE [id number] 18:34:58 Test Item Value Reference Range Interpretation Comments POC-GLUCOSE METER 240 mg/dL 70-110 H : TESTED A T [facility] (BEAKER) (test code [address], = 1538) [place] [address] 478: Hand Rounder/Techni unique ID = [id number] for Juany r, Breanna POCT-GLUCOSE [id number] 06:43:22 Test Item Value Reference Range Interpretation Comments POC-GLUCOSE METER 102 mg/dL 70-110 : TESTED A T [facility] (BEAKER) (test code [address], = 1538) [place] [address]: Hand Rounder/Techni unique ID = [id number] for Will iams, Ila Prepare Leuko-Red [id number] 23:54:00 Test Item Value Reference Range Interpretation Comments CROSSMATCH (test code = 2264) COMPATIBLE Unit ABO (test code = O Pos [id number]) UNIT NUMBER (test code = [id number] 934-0) Status (test code = 7853450) [facility] Blood Bank Product (test code RED BLOOD CELLS = 2263) PRODUCT CODE (test code = B0429C10 933-2) [facility] [id number] 23:54:00 Test Item Value Reference Range Interpretation Comments CROSSMATCH (test code = 2264) COMPATIBLE Unit ABO (test code = O Pos [id number]) UNIT NUMBER (test code = [id number] 934-0) Status (test code = 7297553) [place]_TIMEINCHART Blood Bank Product (test code RED BLOOD CELLS = 2263) PRODUCT CODE (test code = P5213Y25 933-2) [facility]uk[facility]Red [id number] 23:54:00 Test Item Value Reference Range Interpretation Comments CROSSMATCH (test code = 2264) COMPATIBLE Unit ABO (test code = O Pos 2745254) UNIT NUMBER (test code = [id number] 934-0) Status (test code = 6283029) [place] Blood Bank Product (test code RED BLOOD CELLS = 2263) PRODUCT CODE (test code = B6868C94 933-2) [facility] [id number] 20:38:01 Test Item Value Reference Range Interpretation Comments POC-GLUCOSE METER 217 mg/dL 70-110 H : TESTED A T [facility] (BEAKER) (test code [address], = 1538) [place] [address]: Hand Rounder/Techni unique ID = [id number] for Ila Zhao POCT-GLUCOSE [id number] 15:50:59 Test Item Value Reference Range Interpretation Comments POC-GLUCOSE METER 292 mg/dL 70-110 H : TESTED A T [facility] (BEAKER) (test code [address], = 1538) [place] [address]: Hand Rounder/Techni unique ID = [id number] for Cerv antes, Crystal POCT-GLUCOSE [id number] 11:51:33 Test Item Value Reference Range Interpretation Comments POC-GLUCOSE METER 126 mg/dL 70-110 H : TESTED A T [facility] (BEAKER) (test code [address], = 1538) [place] [address]: Hand Rounder/Techni unique ID = [id number] for Cerv antes, Crystal POCT-GLUCOSE [id number] 11:51:31 Test Item Value Reference Range Interpretation Comments POC-GLUCOSE METER 177 mg/dL 70-110 H : TESTED A T [facility] (BEAKER) (test code [address], = 1538) [place] [address]: Hand Rounder/Techni unique ID = [id number] for Rudy holbrook Josiane Hernandez COMPREHENSIVE METABOLIC [id number] 05:57:28 Test Item Value Reference Range Interpretation [...] S NOT APPLICABLE FOR DIALYSIS PATIEN TS. Hand Rounder ID - [id number] ID - [id number] ID - [id number] ID - [id number] ID - [id number] ID - [id number] ID - [id number] ID - [id number] ID - [id number] ID - [id number] ID - [id number] ID - [id number] ID - [id number] ID - [id number] ID - [id number] ID - [id number] FIDFAPVFU9322-81-83 05:53:42 Test Item Value Reference Range Interpretation Comments MAGNESIUM (BEAKER) (test code = 1.8 mg/dL 1.5-3.0 627) Hand Rounder ID - [id number] ID - [id number] ID - [id number] ID - [id number] W/PLT COUNT & AUTO [id number] 05:37:23 Test Item Value Reference Range Interpretation [...] PERCENT (BEAKER) (test code = 2801) POCT-GLUCOSE [id number] 23:12:51 Test Item Value Reference Range Interpretation Comments POC-GLUCOSE METER 244 mg/dL 70-110 H : TESTED A T [facility] (BEAKER) (test code [address], = 1538) [place] [address]: Hand Rounder/Techni unique ID = [id number] for Josiane Vicente POCT-GLUCOSE [id number] 15:53:03 Test Item Value Reference Range Interpretation Comments POC-GLUCOSE METER 237 mg/dL 70-110 H : TESTED A T [facility] (BEAKER) (test code [address], = 1538) [place] [address]: Hand Rounder/Techni unique ID = [id number] for Cerv antes, Crystal HEMORRHAGE IMAGING, [id number] 12:49:00We need the study done todayUnlisted Reason for Exam - Click Yes and Enter Reason Below->No [facility] : 1950 Sex: FFINAL REPORT PROCEDURE: HEMORRHAGE STUDY with RBCs CPT CODE: 66890 INDICATION: Gastrointestinal Bleeding PROTOCOL: 28.4 mCi of Tc-99m was injected intravenously as labeled autologous red blood cells. Flow images of the abdomen were obtained, followed by serial images for approximately 60 minutes. Additional images were obtained 14 hours after tracer injection. FINDINGS: There is physiological tracer distribution in the blood pool. IMPRESSION: Negative study. No evidence of active hemorrhage is seen. Signed: Conroy, Bahman MDReport Verified Date/Time: 07/07/2021 12:49:47 POCT-GLUCOSE [id number] 12:10:46 Test Item Value Reference Range Interpretation Comments POC-GLUCOSE METER 168 mg/dL 70-110 H : TESTED A T [facility] (BEAKER) (test code [address], = 1538) [facility] 77 478: Hand Rounder/Techni unique ID = [id number] for Meme Buckner COMPREHENSIVE METABOLIC [id number] 07:13:02 Test Item Value Reference Range Interpretation [...] S NOT APPLICABLE FOR DIALYSIS PATIEN TS. Hand Rounder ID - LITOOperator ID - LITOOperator ID - LITOOperator ID - LITOOperator ID - LITOOperator ID - LITOOperator ID - LITOOperator ID - LITOOperator ID - LITOOperator ID - LITOOperator ID - LITOOperator ID - LITOOperator ID - LITOOperator ID - LITOOperator ID - LITOOperator ID - [id number] 07:08:35 Test Item Value Reference Range Interpretation Comments MAGNESIUM (BEAKER) (test code = 2.0 mg/dL 1.5-3.0 627) Hand Rounder ID - LITOOperator ID - LITOOperator ID - LITOOperator ID - LITOCBC W/PLT COUNT & AUTO [id number] 06:56:12 Test Item Value Reference Range Interpretation [...] PERCENT (BEAKER) (test code = 2801) POCT-GLUCOSE [id number] 06:52:19 Test Item Value Reference Range Interpretation Comments POC-GLUCOSE METER 206 mg/dL 70-110 H : TESTED A T [facility] (BEAKER) (test code [address], = 1538) [place] [address]: Hand Rounder/Techni unique ID = [id number] for Elizabeth Joshua POCT-GLUCOSE [id number] 23:49:27 Test Item Value Reference Range Interpretation Comments POC-GLUCOSE METER 140 mg/dL 70-110 H : TESTED A T [facility] (BEAKER) (test code [address], = 1538) [place] [address]: Hand Rounder/Techni unique ID = [id number] for Josiane Vicente David ABOR, [id number] 17:58:00 Test Item Value Reference Range Interpretation Comments ABO Grouping (test code O PINK TOP 07/06/21 @ 1728 = 2588) Rh Factor (test code = POS PINK TOP 07/06/21 @ 1728 2589) [facility], [id number] 17:58:00 Test Item Value Reference Range Interpretation Comments ABO Grouping (test code O PINK TOP 07/06/21 @ 1728 = 2588) Rh Factor (test code = POS PINK TOP 07/06/21 @ 1728 2589) [facility], [id number] 17:58:00 Test Item Value Reference Range Interpretation Comments ABO Grouping (test code O PINK TOP 07/06/21 @ 1728 = 2588) Rh Factor (test code = POS PINK TOP 07/06/21 @ 1728 2589) [facility] and screen, [id number] 17:20:00 Test Item Value Reference Range Interpretation Comments ABO/RH AUTOMATED (BEAKER) (test O POSITIVE echo code = 2260) Ab Scrn (test code = 890-4) NEGATIVE echo [facility], [id number] 17:20:00 Test Item Value Reference Range Interpretation Comments ABO/RH AUTOMATED (BEAKER) (test O POSITIVE echo code = 2260) Ab Scrn (test code = 890-4) NEGATIVE echo [facility], [id number] 17:20:00 Test Item Value Reference Range Interpretation Comments ABO/RH AUTOMATED (BEAKER) (test O POSITIVE echo code = 2260) Ab Scrn (test code = 890-4) NEGATIVE echo [facility] [id number] 16:45:28 Test Item Value Reference Range Interpretation Comments POC-GLUCOSE METER 212 mg/dL 70-110 H : Notified RN/MD: TESTED (BEAKER) (test code AT [address] = 1538) [facility] [address]: Hand Rounder/Techni unique ID = [id number] for Ezek iel, Erika Manual [id number] 15:09:27 Test Item Value Reference Range Interpretation Comments % Neutros (manual) (test 92 % code = 1359) % Lymphs (manual) (test 7 % code = 1360) % Metamyelo (manual) 1 % 0-0 H (test code = 258) # Neutros (manual) (test 6.35 See_Comment [A utomated message] code = 1365) The system [place] 100e generated this result transmitted ref erence range: 1.80 - 8 .00 K/L. The refe rence range was not u sed to interpret this result as normal/abnor mal. # Lymphs (manual) (test 0.48 See_Comment L [Au tomated message] code = 1366) The system [place] 100e generated this result transmitted ref erence range: [...] [A utomated message] = 1353) The system [place] 100e generated this result transmitted ref erence range: 0 - 0 /1 00 WBC. The refere nce range was not u sed to interpret this result as normal/abnor mal. WBC Morphology (test Normal code = 487) Platelet Morphology Normal (test code = 486) RBC Morphology (test Normal code = 762) Lab Interpretation (test Abnormal code = 05557-4) [facility] [id number] 15:09:27 Test Item Value Reference Range Interpretation Comments % Neutros (manual) (test 92 % code = 1359) % Lymphs (manual) (test 7 % code = 1360) % Metamyelo (manual) 1 % 0-0 H (test code = 258) # Neutros (manual) (test 6.35 See_Comment [A utomated message] code = 1365) The system [place] 100e generated this result transmitted ref erence range: 1.80 - 8 .00 K/L. The refe rence range was not u sed to interpret this result as normal/abnor mal. # Lymphs (manual) (test 0.48 See_Comment L [Au tomated message] code = 1366) The system [place] 100e generated this result transmitted ref erence range: [...] [A utomated message] = 1353) The system [place] 100e generated this result transmitted ref erence range: 0 - 0 /1 00 WBC. The refere nce range was not u sed to interpret this result as normal/abnor mal. WBC Morphology (test Normal code = 487) Platelet Morphology Normal (test code = 486) RBC Morphology (test Normal code = 762) Lab Interpretation (test Abnormal code = 45987-3) [facility] [id number] 15:09:27 Test Item Value Reference Range Interpretation Comments % Neutros (manual) (test 92 % code = 1359) % Lymphs (manual) (test 7 % code = 1360) % Metamyelo (manual) 1 % 0-0 H (test code = 258) # Neutros (manual) (test 6.35 See_Comment [A utomated message] code = 1365) The system [place] 100e generated this result transmitted ref erence range: 1.80 - 8 .00 K/L. The refe rence range was not u sed to interpret this result as normal/abnor mal. # Lymphs (manual) (test 0.48 See_Comment L [Au tomated message] code = 1366) The system [place] 100e generated this result transmitted ref erence range: [...] 1 See_Comment H [A utomated message] = 1316) The system [place] 100e generated this result transmitted ref erence range: 0 - 0 /1 00 WBC. The refere nce range was not u sed to interpret this result as normal/abnor mal. WBC Morphology (test Normal code = 487) Platelet Morphology Normal (test code = 486) RBC Morphology (test Normal code = 762) Lab Interpretation (test Abnormal code = 63267-3) [facility] W/PLT COUNT & AUTO [id number] 15:09:27 Test Item Value Reference Range Interpretation [...] (test code Normal = 762) COMPREHENSIVE METABOLIC [id number] 13:56:55 Test Item Value Reference Range Interpretation [...] U/L 5-50 (test code = 347) EGFR (VIKRAM) (test 94 mL/min/1.73 ESTIMA LOS GFR IS code = 1092) sq m NOT ACCURATE CREATININE CLEARANCE IN PREDICTING GLOMERULAR FILTRATION RATE . ESTIMATED GFR I S NOT APPLICABLE FOR DIALYSIS PATIEN TS. Hand Rounder ID - ACONTEHOperator ID - ACONTEHOperator ID - ACONTEHOperator ID - ACONTEHOperator ID - ACONTEHOperator ID - ACONTEHOperator ID - ACONTEHOperator ID - ACONTEHOperator ID - ACONTEHOperator ID - ACONTEHOperator ID - ACONTEHOperator ID - ACONTEHOperator ID - ACONTEHOperator ID - ACONTEHOperatorID - ACONTEHOperator ID - [id number] 13:53:54 Test Item Value Reference Range Interpretation Comments MAGNESIUM (VIKRAM) (test code = 2.1 mg/dL 1.5-3.0 627) Hand Rounder ID - ACONTEHOperator ID - ACONTEHOperator ID - ACONTEHOperator ID - ACONTEHPOCT-GLUCOSE [id number] 13:04:56 Test Item Value Reference Range Interpretation Comments POC-GLUCOSE METER 223 mg/dL 70-110 H : Notified RN/MD: TESTED (VIKRAM) (test code AT [facility] [address] = 1538) [facility] [address]: Hand Rounder/Techni unique ID = [id number] for Ezek iel, Erika RAD, CHEST, 1 VIEW, NON [id number] 09:59:00Reason for exam:->covid pnaShould this be performed at the bedside?->Yes [facility] : 1950 Sex: FFINAL REPORT [...] Perez Verified Date/Time: 07/06/2021 09:59:51 Reading Location: [facility] Radiology Reading Room POCT-GLUCOSE [id number] 06:43:25 Test Item Value Reference Range Interpretation Comments POC-GLUCOSE METER 200 mg/dL 70-110 H : TESTED A T [place] [address] ([facility]) (test code [facility] [address] [place], = 1538) [place] [address]: Hand Rounder/Techni unique ID = [id number] for Elizabeth Joshua POCT-GLUCOSE [id number] 16:15:23 Test Item Value Reference Range Interpretation Comments POC-GLUCOSE METER 318 mg/dL 70-110 H : Notified RN/MD: TESTED ([facility]) (test code AT [facility] [address] [address] = 1538) [place] [address]: Hand Rounder/Techni unique ID = [id number] for Ezek iel, Erika POCT-GLUCOSE [id number] 12:25:37 Test Item Value Reference Range Interpretation Comments POC-GLUCOSE METER 213 mg/dL 70-110 H : Notified RN/MD: TESTED ([facility]) (test code AT [facility] [address] = 1538) [place] [address]: Hand Rounder/Techni unique ID = [id number] for Ezek iel, Erika POCT-GLUCOSE [id number] 06:53:05 Test Item Value Reference Range Interpretation Comments POC-GLUCOSE METER 177 mg/dL 70-110 H : Notified RN/MD: TESTED (BEAKER) (test code AT [facility] [address] = 1538) [facility] [address]: Hand Rounder/Techni unique ID = [id number] for Nimesh Jones si COMPREHENSIVE METABOLIC [id number] 05:51:50 Test Item Value Reference Range Interpretation [...] S NOT APPLICABLE FOR DIALYSIS PATIEN TS. Hand Rounder ID - [id number] ID - [id number] ID - [id number] ID - [id number] ID - [id number] ID - [id number] ID - [id number] ID - [id number] ID - [id number] ID - [id number] ID - [id number] ID - [id number] ID - [id number] ID - [id number] ID - [id number] ID - [id number] W/PLT COUNT & AUTO [id number] 05:50:47 Test Item Value Reference Range Interpretation [...] H PERCENT (BEAKER) (test code = 2801) [id number] 05:43:09 Test Item Value Reference Range Interpretation Comments MAGNESIUM (BEAKER) (test code = 2.3 mg/dL 1.5-3.0 627) Hand Rounder ID - [id number] ID - [id number] ID - [id number] ID - [id number](MANUAL DIFFERENTIAL)2021-07-04 21:10:33 Test Item Value Reference Range [...] = 762) CBC W/PLT COUNT & AUTO [id number] 21:10:32 Test Item Value Reference Range Interpretation [...] 0-0 H (test code = 413) POCT-GLUCOSE [id number] 20:24:31 Test Item Value Reference Range Interpretation Comments POC-GLUCOSE METER 221 mg/dL 70-110 H : Notified RN/MD: TESTED (BEAKER) (test code AT [address] = 1538) [place] [address]: Hand Rounder/Techni unique ID = [id number] for Asya Estes POCT-GLUCOSE [id number] 16:30:17 Test Item Value Reference Range Interpretation Comments POC-GLUCOSE METER 279 mg/dL 70-110 H : Notified RN/MD: TESTED (BEAKER) (test code AT [facility] [address] [address] = 1538) [place] [address]: Hand Rounder/Techni unique ID = [id number] for Ezek iel, Erika POCT-GLUCOSE [id number] 11:53:19 Test Item Value Reference Range Interpretation Comments POC-GLUCOSE METER 235 mg/dL 70-110 H : Notified RN/MD: TESTED (BEAKER) (test code AT [facility] [address] = 1538) CAROLYNDuy [facility] [address]: Hand Rounder/Techni unique ID = [id number] for Erika Dc [id number] 05:58:15 Test Item Value Reference Range Interpretation Comments MAGNESIUM (BEAKER) (test code = 1.6 mg/dL 1.5-3.0 627) Hand Rounder ID - LITOOperator ID - LITOOperator ID - LITOOperator ID - LITOC- Reactive [id number] 05:57:52 Test Item Value Reference Range Interpretation Comments CRP (test code = 676) 1.16 mg/dL 0.00-0.50 H LINDY (test code = LINDY) Hand Rounder ID - FLORENCIO Lab Interpretation (test Abnormal code = 89366-9) [facility] Krrzfhw0940-02-46 05:57:52 Test Item Value Reference Range Interpretation Comments CRP (test code = 676) 1.16 mg/dL 0.00-0.50 H LINDY (test code = LINDY) Hand Rounder ID - FLORENCIO Lab Interpretation (test Abnormal code = 39687-3) [facility] Vmjvele5255-10-41 05:57:52 Test Item Value Reference Range Interpretation Comments CRP (test code = 676) 1.16 mg/dL 0.00-0.50 H LINDY (test code = LINDY) Hand Rounder ID - FLORENCIO Lab Interpretation (test Abnormal code = 52005-6) [facility]ACTIVE [id number] 05:57:52 Test Item Value Reference Range Interpretation Comments C-REACTIVE PROTEIN (BEAKER) (test 1.16 mg/dL 0.00-0.50 H code = 676) Hand Rounder ID - LITOBasic Metabolic [id number] 05:57:46 Test Item Value Reference Range Interpretation Comments Sodium (test code = 138 meq/L 607-753 2663-2) Potassium (test code 2.9 meq/L 3.6-5.5 L = 2823-3) Chloride (test code = 108 meq/L 98-106 H 2074-0) CO2 (test code = 20 meq/L 2028-06) BUN (test code = 18 mg/dL 08-07 3094-0) Creatinine (test code 0.72 mg/dL 0.50-1.20 = 2160-0) Glucose (test code = 261 mg/dL 70-110 H 2345-7) Calcium (test code = 7.9 mg/dL 8.5-10.5 L 50332-7) EGFR (test code = 97 mL/min/1.73 [place] [address]-8) m NOT ACCURATE CREATININE CLEARANCE IN PREDICTING GLOMERULAR FILTRATION RATE . ESTIMATED GFR I S NOT APPLICABLE FOR DIALYSIS PATIENTS. LINDY (test code = LINDY) Hand Rounder ID - LITOOperator ID - LITOOperator ID - LITOOperator ID - LITOOperator ID - LITOOperator ID - LITOOperator ID - LITOOperator ID - LITOOperator ID - LITOOperator ID - FLORENCIO Lab Interpretation Abnormal (test code = 34048-5) [facility] Metabolic Oieyc5730-04-50 05:57:46 Test Item Value Reference Range Interpretation Comments Sodium (test code = 138 meq/L 274-945 1973-2) Potassium (test code 2.9 meq/L 3.6-5.5 L = 2823-3) Chloride (test code = 108 meq/L 98-106 H 2074-0) CO2 (test code = 20 meq/L 2028-06) BUN (test code = 18 mg/dL 08-07 3094-0) Creatinine (test code 0.72 mg/dL 0.50-1.20 = 2160-0) Glucose (test code = 261 mg/dL 70-110 H 2345-7) Calcium (test code = 7.9 mg/dL 8.5-10.5 L 55165-8) EGFR (test code = 97 mL/min/1.73 [place] [address]-4) m NOT ACCURATE CREATININE CLEARANCE IN PREDICTING GLOMERULAR FILTRATION RATE . ESTIMATED GFR I S NOT APPLICABLE FOR DIALYSIS PATIENTS. LINDY (test code = LINDY) Hand Rounder ID - LITOOperator ID - LITOOperator ID - LITOOperator ID - LITOOperator ID - LITOOperator ID - LITOOperator ID - LITOOperator ID - LITOOperator ID - LITOOperator ID - FLORENCIO Lab Interpretation Abnormal (test code = 62147-0) [facility] Metabolic [id number] 05:57:46 Test Item Value Reference Range Interpretation Comments Sodium (test code = 138 meq/L 236-741 3619-2) Potassium (test code 2.9 meq/L 3.6-5.5 L = 2823-3) Chloride (test code = 108 meq/L 98-106 H 2075-0) CO2 (test code = 20 meq/L 20-29 2028-9) BUN (test code = 18 mg/dL - 3094-0) Creatinine (test code 0.72 mg/dL 0.50-1.20 = 2160-0) Glucose (test code = 261 mg/dL 70-110 H 2345-7) Calcium (test code = 7.9 mg/dL 8.5-10.5 L 53164-6) EGFR (test code = 97 mL/min/1.73 [place] [address]-4) m NOT ACCURATE CREATININE CLEARANCE IN PREDICTING GLOMERULAR FILTRATION RATE . ESTIMATED GFR I S NOT APPLICABLE FOR DIALYSIS PATIENTS. LINDY (test code = LINDY) Hand Rounder ID - LITOOperator ID - LITOOperator ID - LITOOperator ID - LITOOperator ID - LITOOperator ID - LITOOperator ID - LITOOperator ID - LITOOperator ID - LITOOperator ID - FLORENCIO Lab Interpretation Abnormal (test code = 50095-9) [facility] METABOLIC [id number] 05:57:46 Test Item Value Reference Range Interpretation [...] S NOT APPLICABLE FOR DIALYSIS PATIEN TS. Hand Rounder ID - LITOOperator ID - LITOOperator ID - LITOOperator ID - LITOOperator ID - LITOOperator ID - LITOOperator ID - LITOOperator ID - LITOOperator ID - LITOOperator ID - LITOCBC W/PLT COUNT & AUTO [id number] 05:39:45 Test Item Value Reference Range Interpretation [...] H PERCENT (BEAKER) (test code = 2801) [id number] 05:35:53 Test Item Value Reference Range Interpretation Comments D-Dimer, Quant (test 3.03 See_Comment H Final I nformation code = 91216-4) (Auto Output ) [Automated message] The system which generated this result transmitted reference range : <0.50 MG/L FEU. The reference range was not used to interpr et this result as normal/abnormal . LINDY (test code = REGARDING D-DIMER LINDY) RESULTS: The 98% NPV (Negative Predictive Value) for DVT/PE exclusion is 0.50 mg/L FEU as suggested by the security door installer and as approved by the FDA. Lab Interpretation Abnormal (test code = 21258-9) [id number] 05:35:53 Test Item Value Reference Range Interpretation Comments D-Dimer, Quant (test 3.03 See_Comment H Final I nformation code = 72713-1) (Auto Output ) [Automated message] The system which generated this result transmitted reference range : <0.50 MG/L FEU. The reference range was not used to interpr et this result as normal/abnormal . LINDY (test code = REGARDING D-DIMER LINDY) RESULTS: The 98% NPV (Negative Predictive Value) for DVT/PE exclusion is 0.50 mg/L FEU as suggested by the security door installer and as approved by the FDA. Lab Interpretation Abnormal (test code = 73615-9) [facility]-[id number] 05:35:53 Test Item Value Reference Range Interpretation Comments D-Dimer, Quant (test 3.03 See_Comment H Final I nformation code = 26755-9) (Auto Output ) [Automated message] The system which generated this result transmitted reference range : <0.50 MG/L FEU. The reference range was not used to interpr et this result as normal/abnormal . LINDY (test code = REGARDING D-DIMER LINDY) RESULTS: The 98% NPV (Negative Predictive Value) for DVT/PE exclusion is 0.50 mg/L FEU as suggested by the security door installer and as approved by the FDA. Lab Interpretation Abnormal (test code = 52994-4) [id number] 05:35:53 Test Item Value Reference Range Interpretation Comments D-DIMER QUANTITATIVE 3.03 MG/L FEU <0.50 H Final Information (VIKRAM) (test code = (Auto Output) 671) REGARDING D-DIMER RESULTS: The 98% NPV (Negative Predictive Value) for DVT/PE exclusion is 0.50 mg/LFEU as suggested by the security door installer and as approved by the FDA.POCT-GLUCOSE [id number] 04:52:50 Test Item Value Reference Range Interpretation Comments POC-GLUCOSE METER 242 mg/dL 70-110 H : TESTED A T [facility]17 ([facility]) (test code [facility], = 1538) [facility] 77 8: Hand Rounder/Techni unique ID = [id number] for Di Kolb POCT-GLUCOSE [id number] 20:19:15 Test Item Value Reference Range Interpretation Comments POC-GLUCOSE METER 337 mg/dL 70-110 H : Notified RN/MD: TESTED ([facility]) (test code AT [facility] [address] [place] [address] = 1538) [facility] [address]: Hand Rounder/Techni unique ID = [id number] for Di Kolb POCT-GLUCOSE [id number] 16:27:26 Test Item Value Reference Range Interpretation Comments POC-GLUCOSE METER 257 mg/dL 70-110 H : Notified RN/MD: TESTED ([facility]) (test code AT [facility] 1317 [facility] = 1538) [facility] [address]: Hand Rounder/Techni unique ID = [id number] for Ezek iel, Erika POCT-GLUCOSE [id number] 12:39:48 Test Item Value Reference Range Interpretation Comments POC-GLUCOSE METER 187 mg/dL 70-110 H : Notified RN/MD: TESTED ([facility]) (test code AT [facility] [address] [address] = 1538) [facility] [address]: Hand Rounder/Techni unique ID = [id number] for Ezek iel, Erika RAD, CHEST, 1 VIEW, NON [id number] 07:37:00Reason for exam:- >pneumoniaShould this be performed at the bedside?->Yes [facility] : 1950 Sex: FFINAL REPORT Chest AP portable semierect Comparison exam: 06/30/2021 History provided: Pneumonia, COVID positive Heart size magnified by projection. Bilateral airspace disease predominating peripherally and at the bases persists consistent with COVID 19 infection. Signed: Jason Delgado MDReport Verified Date/Time: 07/03/2021 07:37:18 Reading Location: [facility] Radiology Reading Room POCT-GLUCOSE [id number] 06:33:31 Test Item Value Reference Range Interpretation Comments POC-GLUCOSE METER 286 mg/dL 70-110 H : TESTED A T [facility] 131 ([facility]) (test code [address], = 1538) [place] [address] 478: Hand Rounder/Techni unique ID = [id number] for Elizabeth Joshua POCT-GLUCOSE [id number] 21:14:22 Test Item Value Reference Range Interpretation Comments POC-GLUCOSE METER 299 mg/dL 70-110 H : TESTED A T [facility] (BEAKER) (test code [address], = 1538) [place] [address] 478: Hand Rounder/Techni unique ID = [id number] for Elizabeth Joshua POCT-GLUCOSE [id number] 15:31:54 Test Item Value Reference Range Interpretation Comments POC-GLUCOSE METER 287 mg/dL 70-110 H : TESTED A T [facility] (BEAKER) (test code [address], = 1538) [place] [address] 478: Hand Rounder/Techni unique ID = [id number] for Cerv antes, Crystal POCT-GLUCOSE [id number] 12:06:10 Test Item Value Reference Range Interpretation Comments POC-GLUCOSE METER 259 mg/dL 70-110 H : TESTED A T [facility] (BEAKER) (test code [address], = 1538) [place] [address]: Hand Rounder/Techni unique ID = [id number] for Cerv antes, Crystal CT, CHEST WITH IV CONTRAST- PE TEST [id number] 11:13:00Unlisted Reason for Exam - Click Yes and Enter Reason Below->No [facility] : 1950 Sex: FFINAL REPORT [...] MDReport Verified Date/Time: 07/02/2021 11:13:24 Reading Location: [facility] Radiology Reading Room POCT-GLUCOSE [id number] 09:06:02 Test Item Value Reference Range Interpretation Comments POC-GLUCOSE METER 297 mg/dL 70-110 H : TESTED A T [facility] 1317 (BEAKER) (test code [address], = 1538) [place] [address] 478: Hand Rounder/Techni unique ID = [id number] for Elizabeth Joshua POCT-GLUCOSE [id number] 21:42:04 Test Item Value Reference Range Interpretation Comments POC-GLUCOSE METER 300 mg/dL 70-110 H : TESTED A T [facility] (BEAKER) (test code [address], = 1538) [place] [address] 478: Hand Rounder/Techni unique ID = [id number] for Elizabeth Joshua POCT-GLUCOSE [id number] 16:47:29 Test Item Value Reference Range Interpretation Comments POC-GLUCOSE METER 179 mg/dL 70-110 H : TESTED A T [facility] (BEAKER) (test code [address], = 1538) [place] [address]: Hand Rounder/Techni unique ID = [id number] for Alma Dove VENOUS DOPPLER LEGS, [id number] 12:41:00Reason for exam:->positive d dimerK[facility] JEFFERY : 1950 Sex: FFINAL REPORT [...] Song Verified Date/Time: 07/01/2021 12:41:57 Reading Location: [facility] B1 C013X Ortho Consult Reading Room CBC W/PLT COUNT & AUTO [id number] 12:17:11 Test Item Value Reference Range Interpretation [...] (BEAKER) (test code Normal = 762) POCT-GLUCOSE [id number] 11:55:02 Test Item Value Reference Range Interpretation Comments POC-GLUCOSE METER 300 mg/dL 70-110 H : TESTED A T [facility] (BEAKER) (test code [facility] [address], = 1538) [facility] 77 478: Hand Rounder/Techni unique ID = [id number] for Alma Dove COMPREHENSIVE METABOLIC [id number] 10:34:18 Test Item Value Reference Range Interpretation [...] S NOT APPLICABLE FOR DIALYSIS PATIEN TS. Hand Rounder ID - dgnn06Enqmbrcn ID - gcgk46Qbjpikrf ID - qnfa69Kckkoqtq ID - zzym40Ckhyodeo ID - ktki90Yoniujpx ID - hlom07Nbbfekoh ID - zuxu62Wugguols ID - scwu19Smmobzra ID - nimq56Lxuudkhz ID - jhgf40Rxjebiyy ID - xiui98Vtogxngy ID - pdxh36Vkutxxlv ID - lypi47Nulrbzso ID - uvop04Rwcwyjfy ID - pmdt05Klxvhhwe ID - gdeu96Iatnaslx ID - sgnx09Thamqonf ID - jcud35Phaecyze ID - aocl11Q-UBXFQQUP [id number] 10:26:23 Test Item Value Reference Range Interpretation Comments C-REACTIVE PROTEIN ([facility]) (test 0.89 mg/dL 0.00-0.50 H code = 676) Hand Rounder ID - bpwi42M-ELFMY1867-91-72 10:24:05 Test Item Value Reference Range Interpretation Comments D-DIMER QUANTITATIVE 3.37 MG/L FEU <0.50 H Final Information ([facility]) (test code = (Auto Output) 671) REGARDING D-DIMER RESULTS: The 98% NPV (Negative Predictive Value) for DVT/PE exclusion is 0.50 mg/LFEU as suggested by the security door installer and as approved by the FDA.POCT-GLUCOSE [id number] 06:44:39 Test Item Value Reference Range Interpretation Comments POC-GLUCOSE METER 275 mg/dL 70-110 H : [facility] (test code [address] [place], = 1538) [place] [address]: Hand Rounder/Techni unique ID = [id number] for Elizabeth Joshua POCT-GLUCOSE [id number] 21:22:38 Test Item Value Reference Range Interpretation Comments POC-GLUCOSE METER 425 mg/dL 70-110 HH : Notified RN/MD: TESTED (BEAKER) (test code AT [facility] [address] [address] = 1538) [place] [address]: Hand Rounder/Techni unique ID = [id number] for Elizabeth Joshua POCT-GLUCOSE [id number] 16:28:18 Test Item Value Reference Range Interpretation Comments POC-GLUCOSE METER 432 mg/dL 70-110 HH : Notified RN/MD: TESTED (BEAKER) (test code AT [facility] [address] [address] = 1538) [place] [address]: Hand Rounder/Techni unique ID = [id number] for Agata blum Abhinavcielo POCT-GLUCOSE [id number] 11:49:50 Test Item Value Reference Range Interpretation Comments POC-GLUCOSE METER 376 mg/dL 70-110 H : TESTED A T [facility] [address]17 (BEAKER) (test code [address] [place], = 1538) [place] [address]: Hand Rounder/Techni unique ID = [id number] for Alma Dove RAD, CHEST, 1 VIEW, NON [id number] 09:25:00Reason for exam:- >pneumoniaShould this be performed at the bedside?->Yes [facility] : 1950 Sex: FFINAL REPORT RAD, CHEST, 1 VIEW, NON DEPT INDICATION: pneumonia COMPARISON: 06/29/2021 FINDINGS: Portable frontal view of the chest. IMPRESSION: Support Lines: None Lungs and pleura: Unchanged bibasilar airspace disease No significant pneumothorax. Heart and mediastinum: Stable contours. Additional findings: None. Signed: Lydia Rodrigues Verified Date/Time: 06/30/2021 09:25:48 Reading Location: [address] Neuro Reading Room Electronically signed by: Sherry REYNA 06/30/2021 09:25 AMPOCT-GLUCOSE METER 2021-06-30 06:32:32 Test Item Value Reference Range Interpretation Comments POC-GLUCOSE METER 327 mg/dL 70-110 H : Notified RN/MD: TESTED (BEAKER) (test code AT [facility] [address] = 1538) [facility] [address]: Hand Rounder/Techni unique ID = [id number] for Rupert oscar [facility] COMPREHENSIVE METABOLIC [id number] 05:27:30 Test Item Value Reference Range Interpretation [...] S NOT APPLICABLE FOR DIALYSIS PATIEN TS. Hand Rounder ID - FZWD09Askbsdcx ID - AVHI00Wjphedet ID - NRNY36Nwrwzwde ID - VGAL24Vygtjqle ID - VUVZ97Snqkuewo ID - OYUE03Rmawhutg ID - OXXB55Eoiatjqt ID - OHLB01Eecemhkz ID - VHJW61Mvhhmucf ID - ATUJ96Qqhqbzq function [id number] 05:27:10 Test Item Value Reference Range Interpretation Comments Protein, Total (test 4.5 See_Comment L [Autom ated code = 2885-2) message] The system which generated this result transmit los reference range : 6.0 - 8.5 gm/dL . The reference range was not u sed to interpret th is result as normal/abnormal . Albumin (test code = 2.5 g/dL 3.5-5.0 L 95347-1) Total Bilirubin (test 0.4 mg/dL 0.1-1.2 code = 1975-2) Bilirubin, Direct 0.2 mg/dL 0.0-0.4 (test code = 1968-7) Alkaline Phosphatase 39 U/L 30-115 (test code = 6768-6) AST (test code = 23 U/L 5-40 1920-8) ALT (test code = 50 U/L 5-50 1742-6) LINDY (test code = LINDY) Hand Rounder ID - OQMZ90Rdycluwz ID - VMUD74Csntdkyp ID - ZDDN16Tnoewixr ID - XSJP61Xrkjsqcp ID - KMPR25Zjqebjzu ID - OMCT47Ybyocbei ID - [id number] Lab Interpretation Abnormal (test code = 19789-8) [facility] function [id number] 05:27:10 Test Item Value Reference Range Interpretation Comments Protein, Total (test 4.5 See_Comment L [Autom ated code = 2885-2) message] The system which generated this result transmit los reference range : 6.0 - 8.5 gm/dL . The reference range was not u sed to interpret th is result as normal/abnormal . Albumin (test code = 2.5 g/dL 3.5-5.0 L 49146-6) Total Bilirubin (test 0.4 mg/dL 0.1-1.2 code = 1974-11) Bilirubin, Direct 0.2 mg/dL 0.0-0.4 (test code = 1968-04) Alkaline Phosphatase 39 U/L 30-115 (test code = 6768-6) AST (test code = 23 U/L 5-40 1920-8) ALT (test code = 50 U/L 50 174-6) LINDY (test code = LINDY) Hand Rounder ID - PWIS96Zyiytods ID - IQWF17Jsgbjqgc ID - FWOQ12Ydbhqnpc ID - PXTQ99Knykuthv ID - UWNA27Ufkobyan ID - CJJT35Bdetesxl ID - [id number] Lab Interpretation Abnormal (test code = 05557-8) [facility] payfi1437-35-22 05:27:10 Test Item Value Reference Range Interpretation Comments Protein, Total (test 4.5 See_Comment L [Autom ated code = 2885-2) message] The system which generated this result transmit los reference range : 6.0 - 8.5 gm/dL . The reference range was not u sed to interpret th is result as normal/abnormal . Albumin (test code = 2.5 g/dL 3.5-5.0 L 75060-1) Total Bilirubin (test 0.4 mg/dL 0.1-1.2 code = 1974-11) Bilirubin, Direct 0.2 mg/dL 0.0-0.4 (test code = 1967-) Alkaline Phosphatase 39 U/L 30-115 (test code = 6768-6) AST (test code = 23 U/L 5-40 1920-8) ALT (test code = 50 U/L 5-50 1742-6) LINDY (test code = LINDY) Hand Rounder ID - IHVS16Mwfzxwmp ID - JWFS79Xlzzqgqg ID - CSZH17Vgwhaqve ID - KUHC35Meqtsbqg ID - BHNN84Kcendbsv ID - YUTM12Kygdvpfo ID - [id number] Lab Interpretation Abnormal (test code = 79377-6) [facility] FUNCTION [id number] 05:27:10 Test Item Value Reference Range Interpretation [...] (test code = 50 U/L 5-50 347) Hand Rounder ID - JLZL01Avhhsiye ID - ZQSN48Axzovsvi ID - POCU17Ermnhrch ID - INCB88Ozbgpxxz ID - GJDL05Ntfcknyh ID - XUVX29Dmwctwqt ID - AVCN67Phnsb panel 2021-06-30 05:27:05 Test Item Value Reference Range Interpretation Comments Triglycerides (test 172 mg/dL code = 2571-8) Cholesterol (test code 157 mg/dL = 2093-3) HDL (test code = 27 mg/dL 5-9) LDL Calculated (test 96 mg/dL code = 20852-8) LINDY (test code = LINDY) Triglyceride Reference Range: Low Risk <150 Borderline 150-199 High Risk 200-499 Very High Risk >=500 Cholesterol Reference Range: Low Risk <200 Borderline 200-239 High Risk >240 HDL Cholesterol Reference Range: Low Risk >=60 High Risk <40 LDL Cholesterol Reference Range: Optimal <100 Near Optimal 100-129 Borderline 130-159 High 160-189 Very High >=190 Hand Rounder ID - AVDJ79Vuoawmfh ID - HDUY61Grczrgki ID - [id number] [facility] HospitalLipid gczhf8902-98-67 05:27:05 Test Item Value Reference Range Interpretation Comments Triglycerides (test 172 mg/dL code = 2571-8) Cholesterol (test code 157 mg/dL = 3-3) HDL (test code = 27 mg/dL 2085-06) LDL Calculated (test 96 mg/dL code = 76937-2) LINDY (test code = LINDY) Triglyceride Reference Range: Low Risk <150 Borderline 150-199 High Risk 200-499 Very High Risk >=500 Cholesterol Reference Range: Low Risk <200 Borderline 200-239 High Risk >240 HDL Cholesterol Reference Range: Low Risk >=60 High Risk <40 LDL Cholesterol Reference Range: Optimal <100 Near Optimal 100-129 Borderline 130-159 High 160-189 Very High >=190 Hand Rounder ID - WUIE64Blymadzq ID - PZGN40Wrdqazyo ID - [id number] [facility] HospitalLipid iwczk3327-16-22 05:27:05 Test Item Value Reference Range Interpretation Comments Triglycerides (test 172 mg/dL code = 2571-8) Cholesterol (test code 157 mg/dL = 3-3) HDL (test code = 27 mg/dL 2085-06) LDL Calculated (test 96 mg/dL code = 96735-8) LINDY (test code = LINDY) Triglyceride Reference Range: Low Risk <150 Borderline 150-199 High Risk 200-499 Very High Risk >=500 Cholesterol Reference Range: Low Risk <200 Borderline 200-239 High Risk >240 HDL Cholesterol Reference Range: Low Risk >=60 High Risk <40 LDL Cholesterol Reference Range: Optimal <100 Near Optimal 100-129 Borderline 130-159 High 160-189 Very High >=190 Hand Rounder ID - GUSM67Bgdjpjzz ID - ORAD37Kmbogghm ID - [id number] [facility] HospitalLIPID [id number] 05:27:05 Test Item Value Reference Range Interpretation [...] Borderline 130-159 High 160-189 Very High >=190 Hand Rounder ID - UGWH78Mzclgqbr ID - CJFV82Plsfednl ID - WBRA28OIFVTZHLC5078-43-13 05:26:48 Test Item Value Reference Range Interpretation Comments MAGNESIUM (BEAKER) (test code = 2.2 mg/dL 1.5-3.0 627) Hand Rounder ID - HAGI64Wqommnzc ID - UZMD13Qrhhwrew ID - XRWB01Bfxvkhbi ID - [id number] Prothrombin time/[id number] 05:10:20 Test Item Value Reference Interpretation Comments [...] valves. Lab Interpretation Normal (test code = 28149-0) [facility] HospitalProthrombin time/RCU6608-51-15 05:10:20 Test Item Value Reference Interpretation Comments [...] valves. Lab Interpretation Normal (test code = 49237-2) [facility] HospitalProthrombin time/OLT6760-01-26 05:10:20 Test Item Value Reference Interpretation Comments [...] valves. Lab Interpretation Normal (test code = 12131-0) [facility] HospitalPROTHROMBIN TIME/[id number] 05:10:20 Test Item Value Reference Range Interpretation Comments PROTIME (BEAKER) 11.0 seconds 9.3-12.0 Final Infor mation (test code = 759) (Auto Outp ut) INR (BEAKER) (test 0.99 See_Comment Final Inf ormation code = 370) (Auto Output) [Automated mess age] The system [place] 100e generated this result transmitted ref erence range: <=5.90. The reference range was not used to int erpret this result as normal/abnormal . RECOMMENDED COUMADIN/WARFARIN INR THERAPY RANGESSTANDARD DOSE: 2.0 - 3.0 Includes: PROPHYLAXIS for venous thrombosis, systemic embolization; TREATMENT for venous thrombosis and/or pulmonary embolus.HIGH RISK: Target INR is 2.5-3.5 for patients with mechanical heart valves.CBC W/PLT COUNT & AUTO [id number] 04:55:57 Test Item Value Reference Range Interpretation [...] PERCENT (BEAKER) (test code = 2801) POCT-GLUCOSE [id number] 19:32:11 Test Item Value Reference Range Interpretation Comments POC-GLUCOSE METER 296 mg/dL 70-110 H : Notified RN/MD: TESTED (BEAKER) (test code AT [facility] [address] [place] [address] = 1538) [facility] [address]: Hand Rounder/Techni unique ID = [id number] for Asya Estes Osmolality, vyppx0189-87-04 16:45:57 Test Item Value Reference Range Interpretation Comments Osmolality, Ur (test code 785 See_Comment [ Automated message] = 2695-5) The system [place] 100e generated this result transmitted ref erence range: 50-1,200 mOsm/kg mOsm/kg . The reference range was not used to int erpret this result as normal/abnormal . Lab Interpretation (test Normal code = 93621-2) [facility] HospitalOsmolality, kohqi1751-09-67 16:45:57 Test Item Value Reference Range Interpretation Comments Osmolality, Ur (test code 785 See_Comment [ Automated message] = 2695-5) The system [place] 100e generated this result transmitted ref erence range: 50-1,200 mOsm/kg mOsm/kg . The reference range was not used to int erpret this result as normal/abnormal . Lab Interpretation (test Normal code = 05790-0) [facility] HospitalOsmolality, ntwgy1278-10-79 16:45:57 Test Item Value Reference Range Interpretation Comments Osmolality, Ur (test code 785 See_Comment [ Automated message] = 2695-5) The system [place] 100e generated this result transmitted ref erence range: 50-1,200 mOsm/kg mOsm/kg . The reference range was not used to int erpret this result as normal/abnormal . Lab Interpretation (test Normal code = 91052-2) [facility] HospitalOSMOLALITY, [id number] 16:45:57 Test Item Value Reference Range Interpretation Comments OSMOLALITY URINE 785 mOsm/kg See_Comment [Automated message] (BEROYER) (test code = The sy stem which 614) generated this result transmitted ref erence range: 50-1,200 mOsm/kg. The reference range was not used to int erpret this result as normal/abnormal . POCT-GLUCOSE [id number] 16:11:12 Test Item Value Reference Range Interpretation Comments POC-GLUCOSE METER 262 mg/dL 70-110 H : TESTED A T [facility] ([employer]) (test code [address], = 1538) [place] [address]: Hand Rounder/Techni unique ID = [id number] for Sawy er, Kyra C-REACTIVE YOROCQV9795-07-41 12:51:06 Test Item Value Reference Range Interpretation Comments C-REACTIVE PROTEIN ([facility]) (test 1.05 mg/dL 0.00-0.50 H code = 676) Hand Rounder ID - ZLUJWEXM-SQHOI5224-67-17 12:46:27 Test Item Value Reference Range Interpretation Comments D-DIMER QUANTITATIVE 0.40 MG/L FEU <0.50 Final Information ([facility]) (test code = (Auto Output) 671) REGARDING D-DIMER RESULTS: The 98% NPV (Negative Predictive Value) for DVT/PE exclusion is 0.50 mg/LFEU as suggested by the security door installer and as approved by the FDA.POCT-GLUCOSE [id number] 11:18:02 Test Item Value Reference Range Interpretation Comments POC-GLUCOSE METER 280 mg/dL 70-110 H : TESTED A T [facility] ([employer]) (test code [address], = 1538) [place] [address]: Hand Rounder/Techni unique ID = [id number] for Sawy er, Kyra RAD, CHEST, 1 VIEW, NON [id number] 10:20:00Reason for exam:->COVID PneumoniaShould this be performed at the bedside?->Yes [facility] : 1950 Sex: FFINAL REPORT [...] MDReport Verified Date/Time: 06/29/2021 10:20:49 Reading Location: [facility] Radiology Reading Room Urinalysis w/Cjgswaencof2802-30-85 10:08:29 Test Item Value Reference Range Interpretation Comments Color, UA (test code = Yellow 5778-6) Clarity, UA (test code Clear = 5767-9) Specific [place], UA >1.030 1.001-1.035 (test code = 5811-5) pH, UA (test code = 5.0 5.0-8.0 5803-2) Protein, UA (test code Trace Negative A = 55187-0) Glucose, UA (test code Negative Negative = 365) Ketones, UA (test code Trace Negative A = 2514-8) Bilirubin, UA (test Negative Negative code = 03151-7) Blood, UA (test code = Moderate Negative A 11594-7) Nitrite, UA (test code Negative Negative = 5802-4) Leukocytes, UA (test Small Negative A code = 5799-2) Urobilinogen, UA (test 0.2 mg/dL 0.2-1.0 code = 80946-2) Bacteria, UA (test code Occasional = 14033-3) Yeast (test code = Moderate 02905-6) RBC, UA (test code = <5 See_Comment [Autom ated message] 799-7) The system [place] 100e generated this result transmit los reference range : /HPF. The refer ence range was not u sed to interpret th is result as normal/abnormal . WBC, UA (test code = 10-20 See_Comment [Autom ated message] 03429-1) The system [place] 100e generated this result transmit los reference range : /HPF. The refer ence range was not u sed to interpret th is result as normal/abnormal . SQUAMOUS EPITHELIAL 5-10 See_Comment [Automa los message] (test code = 99995-9) The sy stem which generated this result transmit los reference range : /HPF. The refer ence range was not u sed to interpret th is result as normal/abnormal . Specimen Source (test code = 2795) Lab Interpretation Abnormal (test code = 85648-3) [facility]/[id number] 10:08:29 Test Item Value Reference Range Interpretation Comments Color, UA (test code = Yellow 5778-6) Clarity, UA (test code Clear = 5767-9) Specific [place], UA >1.030 1.001-1.035 (test code = 5811-5) pH, UA (test code = 5.0 5.0-8.0 5803-2) Protein, UA (test code Trace Negative A = 50437-7) Glucose, UA (test code Negative Negative = 365) Ketones, UA (test code Trace Negative A = 2514-8) Bilirubin, UA (test Negative Negative code = 98043-7) Blood, UA (test code = Moderate Negative A 04562-2) Nitrite, UA (test code Negative Negative = 5802-4) Leukocytes, UA (test Small Negative A code = 5799-2) Urobilinogen, UA (test 0.2 mg/dL 0.2-1.0 code = 41802-2) Bacteria, UA (test code Occasional = 83723-8) Yeast (test code = Moderate 13414-6) RBC, UA (test code = <5 See_Comment [Autom ated message] 799-7) The system [place] 100[employer] generated this result transmit los reference range : /HPF. The refer ence range was not u sed to interpret th is result as normal/abnormal . WBC, UA (test code = 10-20 See_Comment [Autom ated message] 91969-0) The system [place] [employer] generated this result transmit los reference range : /HPF. The refer ence range was not u sed to interpret th is result as normal/abnormal . SQUAMOUS EPITHELIAL 5-10 See_Comment [Automa los message] (test code = 51600-1) The sy stem which generated this result transmit los reference range : /HPF. The refer ence range was not u sed to interpret th is result as normal/abnormal . Specimen Source (test code = 2795) Lab Interpretation Abnormal (test code = 71602-9) [facility]/Roaxpkzfikz0313-32-18 10:08:29 Test Item Value Reference Range Interpretation Comments Color, UA (test code = Yellow 5778-6) Clarity, UA (test code Clear = 5767-9) Specific [place], UA >1.030 1.001-1.035 (test code = 5811-5) pH, UA (test code = 5.0 5.0-8.0 5803-2) Protein, UA (test code Trace Negative A = 79258-4) Glucose, UA (test code Negative Negative = 365) Ketones, UA (test code Trace Negative A = 2514-8) Bilirubin, UA (test Negative Negative code = 45460-5) Blood, UA (test code = Moderate Negative A 88247-2) Nitrite, UA (test code Negative Negative = 5802-4) Leukocytes, UA (test Small Negative A code = 5799-2) Urobilinogen, UA (test 0.2 mg/dL 0.2-1.0 code = 86662-7) Bacteria, UA (test code Occasional = 50629-6) Yeast (test code = Moderate 15346-9) RBC, UA (test code = <5 See_Comment [Autom ated message] 799-7) The system [place] [employer] generated this result transmit los reference range : /HPF. The refer ence range was not u sed to interpret th is result as normal/abnormal . WBC, UA (test code = 10-20 See_Comment [Autom ated message] 15959-8) The system [place] [employer] generated this result transmit los reference range : /HPF. The refer ence range was not u sed to interpret th is result as normal/abnormal . SQUAMOUS EPITHELIAL 5-10 See_Comment [Automa los message] (test code = 45483-6) The sy stem which generated this result transmit los reference range : /HPF. The refer ence range was not u sed to interpret th is result as normal/abnormal . Specimen Source (test code = 2795) Lab Interpretation Abnormal (test code = 84834-2) [facility]/ [id number] 10:08:29 Test Item Value Reference Range Interpretation [...] SOURCE(BEAKER) (test code = 2795) Protein, random [id number] 09:23:05 Test Item Value Reference Range Interpretation Comments Protein, Urine (test code 45 mg/dL 0-14 H = 2888-6) LINDY (test code = LINDY) Hand Rounder ID - DSENSON Lab Interpretation (test Abnormal code = 02829-2) [facility] HospitalProtein, random [id number] 09:23:05 Test Item Value Reference Range Interpretation Comments Protein, Urine (test code 45 mg/dL 0-14 H = 2888-6) LINDY (test code = LINDY) Hand Rounder ID - DSTO Lab Interpretation (test Abnormal code = 69082-6) [facility]Protein, random [id number] 09:23:05 Test Item Value Reference Range Interpretation Comments Protein, Urine (test code 45 mg/dL 0-14 H = 2888-6) LINDY (test code = LINDY) Hand Rounder ID - DSENSON Lab Interpretation (test Abnormal code = 59584-9) [facility] HospitalPROTEIN, RANDOM [id number] 09:23:05 Test Item Value Reference Range Interpretation Comments PROTEIN, URINE (BEAKER) (test code = 45 mg/dL 0-14 H 1569) Hand Rounder ID - EMPERATRIZCreatinine, random [id number] 09:22:49 Test Item Value Reference Range Interpretation Comments Creatinine, Ur 145.7 mg/dL (test code = 2161-8) LINDY (test code = Reference Range: No LINDY) NormalsOperator ID - DSENSON [facility] HospitalCreatinine, random [id number] 09:22:49 Test Item Value Reference Range Interpretation Comments Creatinine, Ur 145.7 mg/dL (test code = 2161-8) LINDY (test code = Reference Range: No LINDY) NormalsOperator ID - DSTO [facility] HospitalCreatinine, random [id number] 09:22:49 Test Item Value Reference Range Interpretation Comments Creatinine, Ur 145.7 mg/dL (test code = 2161-8) LINDY (test code = Reference Range: No LINDY) NormalsOperator ID - DSTO [facility] HospitalCREATININE, RANDOM [id number] 09:22:49 Test Item Value Reference Range Interpretation Comments CREATININE URINE (BEAKER) (test 145.7 mg/dL code = 375) Reference Range: No NormalsOperator ID - DSTOSodium, random [id number] 09:18:51 Test Item Value Reference Range Interpretation Comments Sodium Urine (test 35 meq/L code = 2955-3) LINDY (test code = Reference Range: No LINDY) NormalsOperator ID - DSENSON [facility] Center[facility], random [id number] 09:18:51 Test Item Value Reference Range Interpretation Comments Sodium Urine (test 35 meq/L code = 2955-3) LINDY (test code = Reference Range: No LINDY) NormalsOperator ID - [facility]Sh[facility] Californiaodium, random [id number] 09:18:51 Test Item Value Reference Range Interpretation Comments Sodium Urine (test 35 meq/L code = 2955-3) LINDY (test code = Reference Range: No LINDY) NormalsOperator ID - MANAShrin[facility] Hospit[facility] Children Northern CaliforniaODIUM, RANDOM [id number] 09:18:51 Test Item Value Reference Range Interpretation Comments SODIUM URINE (BEAKER) (test code = 35 meq/L 243) Reference Range: No NormalsOperator ID - [facility], random urine 2021-06-29 09:15:34 Test Item Value Reference Range Interpretation Comments Potassium Urine 75.5 meq/L (test code = 2828-2) LINDY (test code = Reference Range: No LINDY) NormalsOperator ID - [facility] [id number] 09:15:34 Test Item Value Reference Range Interpretation Comments Potassium Urine 75.5 meq/L (test code = 2828-2) LINDY (test code = Reference Range: No LINDY) NormalsOperator ID - [facility]Pot[facility], random [id number] 09:15:34 Test Item Value Reference Range Interpretation Comments Potassium Urine 75.5 meq/L (test code = 2828-2) LINDY (test code = Reference Range: No LINDY) NormalsOperator ID - [facility] HospitalPOTASSIUM, RANDOM [id number] 09:15:34 Test Item Value Reference Range Interpretation Comments POTASSIUM URINE (BEAKER) (test 75.5 meq/L code = 195) Reference Range: No NormalsOperator ID - EMPERATRIZBASIC METABOLIC [id number] 08:55:08 Test Item Value Reference Range Interpretation [...] S NOT APPLICABLE FOR DIALYSIS PATIEN TS. Hand Rounder ID - DSENSONOperator ID - DSENSONOperator ID - DSENSONOperator ID - DSENSONOperator ID - DSENSONOperator ID - DSENSONOperator ID - DSENSONOperator ID - DSENSONOperator ID - DSENSONOperator ID - DSENSONOperator ID - DSENSONOperator ID - DSENSONOperator ID - DSENSONOperator ID - DSENSONOperatorID - DSENSONOperator ID - DSENSONOperator ID - DSENSONOperator ID - DSENSONOperator ID - DSENSONOperator ID - DSENSONLIPID [id number] 05:02:00 Test Item Value Reference Range Interpretation [...] Borderline 130-159 High 160-189 Very High >=190 Hand Rounder ID - LITOOperator ID - LITOOperator ID - LITOOperator ID - LITOOperator ID - LITOOperator ID - LITOHEPATIC FUNCTION [id number] 04:37:26 Test Item Value Reference Range Interpretation [...] Specimen slightly (test code = 347) hemolyzed Hand Rounder ID - LITOOperator ID - LITOOperator ID - LITOOperator ID - LITOOperator ID - LITOOperator ID - LITOOperator ID - LITOPROTHROMBIN TIME/[id number] 04:23:54 Test Item Value Reference Range Interpretation Comments PROTIME (BEAKER) 11.4 seconds 9.3-12.0 Final Infor mation (test code = 759) (Auto Outp ut) INR (BEAKER) (test 1.03 See_Comment Final Inf ormation code = 370) (Auto Output) [Automated mess age] The system [place] 100[employer] generated this result transmitted ref erence range: <=5.90. The reference range was not used to int erpret this result as normal/abnormal . RECOMMENDED COUMADIN/WARFARIN INR THERAPY RANGESSTANDARD DOSE: 2.0 - 3.0 Includes: PROPHYLAXIS for venous thrombosis, systemic embolization; TREATMENT for venous thrombosis and/or pulmonary embolus.HIGH RISK: Target INR is 2.5-3.5 for patients with mechanical heart valves.CBC W/PLT COUNT & AUTO [id number] 04:09:57 Test Item Value Reference Range Interpretation [...] Note Provider Source 2021-07-11 13:32:52-00:00 KYLIE FLORES [facility] CONSULTATION FREDDIE JEFFERY FACILITY: [facility] Billing #: [id number] Room: [address] [place] [address] MR #: [id number] : 1950 DATE OF ADMISSION: 06/28/2021 DATE OF CONSULTATION: REQUESTING PHYSICIAN: [employer] PROGRAM COORDINATOR: Kylie Flores MD SUBJECTIVE: Ms. Jeffery has [...] or significant drop in the hematocrit. NM/MODL /[id number] 2021-07-10 13:00:38-00:00 [facility] FREDDIE JEFFERY FACILITY: [facility] Billing #: [id number] Room: [address] [place] [address] MR #: [id number] : 1950 PHYSICIAN: Kylie Flores MD ADMISSION [...] have to proceed w ith that. NM/MODL /[id number] 2021-07-09 13:52:22-00:00 KYLIE FLORES [facility] PROGRESS NOTE FREDDIE JEFFERY FACILITY: [facility] Billing #: [id number] Room: [address] [place] [address] MR #: [id number] : 1950 PHYSICIAN: Kylie Flores MD ADMISSION [...] continue to follow a conserv ative approach. NM/MODL /[id number] 2021-07-08 09:48:06-00:00 KYLIE FLORES [facility] PROGRESS NOTE FRDEDIE JEFFERY FACILITY: [facility] Billing #: [id number] Room: [address] [place] [address] MR #: [id number] : 1950 PHYSICIAN: Kylie Flores MD ADMISSION [...] No further GI workup is recommended. NM/MODL /[id number] 2021-07-07 14:34:33-00:00 [facility] LATIAFREDDIE SHORT FACILITY: [facility] Billing #: [id number] Room: [address] [place] [address] MR #: [id number] : 1950 PHYSICIAN: Kylie Flores MD ADMISSION [...] will go ahead and follow her conservati kamiy. I had a long discussion yesterday with the son, who unde rstood that if the GI bleeding scan was positive, it would lead to a colonoscopy and he understood that, but at prese nt, would just continue to stay conservative. NM/MODL /[id number] 2021-07-06 18:34:44-00:00 [facility] FREDDIE JEFFERY FACILITY: [facility] Billing #: [id number] Room: [address] [place] [address] MR #: [id number] : 1950 PHYSICIAN: Kylie Flores MD ADMISSION [...] need to resort to a CT angiography. NM/MODL /[id number] 2021-07-05 13:11:09-00:00 KYLIE FLORES [facility] CONSULTATION FREDDIE JEFFERY FACILITY: [facility] Billing #: [id number] Room: [address] [place] [address] MR #: [id number] : 1950 DATE OF ADMISSION: 06/28/2021 DATE OF CONSULTATION: 07/04/2021 REQUESTING PHYSICIAN: [employer] PROGRAM COORDINATOR: Kylie Flores MD Hospital Visit Note REASON [...] PAST MEDICAL HISTORY: Well documented in the [facility] rt. SOCIAL/FAMILY HISTORY: Otherwise unremarkable. T [...] then the colonoscop y would be reasonable. ZACHARIAH/MODGamaliel /[id number] 2021-07-01 19:42:33-00:00 RICHARDSON AMADO PROGRESS NOTE FREDDIE JEFFERY FACILITY: [facility] Billing #: [id number] Room: [address] [place] [address] MR #: [id number] : 1950 PHYSICIAN: Richardson Amado MD ADMISSION [...] active sliding scale coverage for her diabetes. CHRISTINA/FITZ /[id number] 2021-06-30 18:50:17-00:00 RICHARDSON AMADO PROGRESS NOTE LATIAFREDDIE FACILITY: [facility] Billing #: [id number] Room: [address] [place] [address] MR #: [id number] : 1950 PHYSICIAN: Richardson Amado MD ADMISSION [...] The patient also on IV antibiotics. CHRISTINA/FITZ /[id number]
--- NOTE | 2023-05-12 13:06 | RAD REPORT ---
EXAM DESCRIPTION: RAD - Chest Single View - 05/12/2023 12:54 pm CLINICAL HISTORY: SWELLING COMPARISON: Chest Single View dated 04/10/2023; Chest Single View dated 11/06/2022; Chest Single View dated 01/31/2022; Chest Single View dated 08/31/2021 FINDINGS: Lines: None. Lungs: Similar bilateral interstitial and airspace disease compared with 04/10/2023. Pleural: Left-sided pleural effusion difficult to exclude . Cardiac: Cardiomegaly. Mediastinum: Within normal limits. Bones: No acute fractures. Other: None IMPRESSION: Similar aeration lungs of the lungs compared with 04/10/2023 with probable pulmonary raymon
--- NOTE | 2023-05-12 13:25 | RAD REPORT ---
EXAM DESCRIPTION: CT - Head Brain Wo Cont - 05/12/2023 1:11 pm CLINICAL HISTORY: VISUAL DISTURBANCES COMPARISON: Head Brain Wo Cont dated 08/22/2021 TECHNIQUE: All CT scans are performed using dose optimization technique as appropriate and may inclu de automated exposure control or mA/KV adjustment according to patient size. FINDINGS: No intracranial hemorrhage, hydrocephalus or extra-axial fluid collection.No areas of brai n edema or evidence of midline shift. Mild circumferential thickening right maxillary sinus. Several ethmoid air cells are opacified on the right side. The calvarium is intact. IMPRESSION: No acute intracranial abnormality.
[2023-05-12] MEDS ORDERED: FUROSEMIDE 40 MG/4 ML VIAL ONE (13:58)
[2023-05-12 14:03] LABS: Absolute Lymphocytes (CBC) 1.2 K/uL (0.7-4.9)
[2023-05-12 14:15] LABS: Protime INR 0.88
[2023-05-12 14:30] LABS: Hematocrit 47.1 % (36.0-45.0); Lymphocytes % 22.5 % (15.3-44.8); MCV 104.5 fL (80-100); MPV 9.1 fL (7.6-11.3); Platelets 107 thou/uL (152-406)
[2023-05-12 15:02] LABS: Magnesium 1.9 mg/dL (1.6-2.4); Troponin High Sensitivity 211.9 pg/mL (<58.9)
[2023-05-12 15:05] LABS: Potassium 2.6 mEq/L (3.5-5.1)
[2023-05-12] MEDS ORDERED: POTASSIUM CL SA 10 MEQ TAB PO ONE ×2 (15:17→22:06)
--- NOTE | 2023-05-12 15:23 | ER ---
Nurse's Notes [facility] Yari Name: Marry Chowdary Age: 72 yrs Sex: Female : 1950 Arrival Date: 05/12/2023 Time: 12:22 Bed 20 Private MD: Kina Barajas Diagnosis: Unspecified combined systolic (congestive) and diastolic (congestive) heart failure Presentation: 05/12 12:40 Chief complaint: Patient states: bilateral leg swelling X1 week and left eye deviation cm10 onset last night. No changes to vision. Coronavirus screen: Vaccine status: Patient reports receiving the 2nd dose of the covid vaccine. Ebola Screen: No symptoms or risks identified at this time. Initial Sepsis Screen: Does the patient meet any 2 criteria? No. Patient's initial sepsis screen is negative. Does the patient have a suspected source of infection? No. Patient's initial sepsis screen is negative. Risk Assessment: Do you want to hurt yourself or someone else? Patient reports no desire to harm self or others. Onset of symptoms was May 12, 2023. 12:40 Method Of Arrival: Wheelchair cm10 12:40 Acuity: MOSES 3 cm10 Historical: - Allergies: 12:42 No Known Allergies; cm10 - Home Meds: 13:30 amiodarone 200 mg Oral tab 0.5 tab once daily [Active]; Eliquis 5 mg Oral tab 1 tab 2 eh3 times per day [Active]; Entresto 97-103 mg Oral tab 1 tab 2 times per day [Active]; furosemide 20 mg Oral tab 1 tab once daily [Active]; metoprolol succinate 100 mg Oral CSpX 1 cap BID [Active]; - PMHx: 12:42 Arthritis; Atrial fibrillation; Congestive heart failure; Hyperlipidemia; Hypertension; cm10 - PSHx: 12:42 Cholecystectomy; hysterectomy; cm10 - Immunization history:: Adult Immunizations unknown. - Social history:: Smoking status: Patient denies any tobacco usage or history of. Screenin:30 [facility] ED Fall Risk Assessment (Adult) Score/Fall Risk Level 0 - 2 = Low Risk. Abuse eh3 screen: Denies threats or abuse. Denies injuries from another. Nutritional screening: No deficits noted. Tuberculosis screening: No symptoms or risk factors identified. Assessment: 13:30 General: Appears in no apparent distress. uncomfortable, Behavior is calm, cooperative, eh3 appropriate for age. Pain: Complains of pain in left leg and right leg and lateral on left eye. Neuro: Level of Consciousness is awake, alert, obeys commands, Oriented to person, place, time, situation. Cardiovascular: Capillary refill < 3 seconds Patient's skin is warm and dry. Cardiovascular: Edema is 2+ to left midcalf, left ankle, left foot, right midcalf, right ankle and right foot. Respiratory: Airway is patent Respiratory effort is even, unlabored, Respiratory pattern is regular, symmetrical. GI: Abdomen is round non-distended, PEG tube in place, clamped. Site clean. Derm: Skin is pink, warm \T\ dry. Musculoskeletal: Circulation, motion, and sensation intact. 14:30 Reassessment: Patient appears in no apparent distress at this time. Patient and/or 3 family updated on plan of care and expected duration. Pain level reassessed. Patient is alert, oriented x 3, equal unlabored respirations, skin warm/dry/pink. 15:30 Reassessment: Patient appears in no apparent distress at this time. Patient and/or 3 family updated on plan of care and expected duration. Pain level reassessed. Patient is alert, oriented x 3, equal unlabored respirations, skin warm/dry/pink. 16:30 Reassessment: Patient appears in no apparent distress at this time. Patient and/or 3 family updated on plan of care and expected duration. Pain level reassessed. Patient is alert, oriented x 3, equal unlabored respirations, skin warm/dry/pink. 17:30 Reassessment: Patient appears in no apparent distress at this time. Patient and/or eh3 family updated on plan of care and expected duration. Pain level reassessed. Patient is alert, oriented x 3, equal unlabored respirations, skin warm/dry/pink. 18:30 Reassessment: Patient appears in no apparent distress at this time. Patient and/or eh3 family updated on plan of care and expected duration. Pain level reassessed. Patient is alert, oriented x 3, equal unlabored respirations, skin warm/dry/pink. 18:40 Reassessment: Nurse to nurse report received by Sanaz on 2nd floor. [facility] Vital Signs: 12:40 BP 146 / 91; Pulse 74; Resp 18; Temp 97.6; Pulse Ox 99% ; Weight 75.3 kg; Height 5 ft. cm10 7 in. ; Pain 0/10; 13:30 BP 149 / 98; Pulse 77; Resp 20; Pulse Ox 97% on R/A; eh3 14:30 BP 146 / 92; Pulse 76; Resp 20; Pulse Ox 96% on R/A; eh3 15:30 BP 131 / 81; Pulse 83; Resp 20; Pulse Ox 96% on R/A; eh3 16:30 BP 129 / 71; Pulse 74; Resp 20; Pulse Ox 98% on R/A; eh3 17:30 BP 138 / 69; Pulse 76; Resp 20; Pulse Ox 95% on R/A; eh3 18:30 BP 128 / 73; Pulse 79; Resp 20; Pulse Ox 95% on R/A; eh3 12:40 Body Mass Index 26.00 (75.30 kg, 170.18 cm) cm10 12:40 Pain Scale: Adult cm10 ED Course: 12:23 Patient arrived in ED. am2 12:24 Kina Barajas DO is Private Physician. am2 12:24 Carolina Gabriel FNP-C is [facility]. kb 12:24 Chris Tompkins MD is Attending Physician. kb 12:42 Triage completed. cm10 12:42 Arm band placed on. cm10 12:56 XRAY Chest (1 view) In Process Unspecified. EDMS 13:13 CT Head Brain wo Cont In Process Unspecified. EDMS 13:30 Patient has correct armband on for positive identification. Bed in low position. Call eh3 light in reach. Side rails up X2. Adult w/ patient. Provided Education on: Use of call sun. Client placed on continuous cardiac and pulse oximetry monitoring. NIBP monitoring applied. 13:49 Sonam Cunningham, RN is Primary Nurse. eh3 13:50 Basic Metabolic Panel Sent. cm10 13:50 CBC with Diff Sent. cm10 13:50 Magnesium Sent. cm10 13:50 NT PRO-BNP Sent. cm10 13:50 PT-INR Sent. cm10 13:50 Troponin HS Sent. cm10 13:50 Initial lab(s) drawn, by sc, sent to lab. Inserted saline lock: 20 gauge in left cm10 antecubital area, using aseptic technique. Blood collected. Accessed. 15:05 Notified Nurse Practitioner and/or Physician Production Painter of a critical lab result(s), K jl7 2.6 and troponin 211. 15:22 Eric Sotelo is Hospitalizing Provider. kb 18:43 No provider procedures requiring assistance completed. Patient admitted, IV remains in eh3 place. Administered Medications: 13:52 Drug: Furosemide IVP 40 mg Route: IVP; Site: left antecubital; 3 14:48 Follow up: Response: No adverse reaction [facility] 15:18 Drug: Potassium Chloride PO 40 mEq Route: PO; 3 18:08 Follow up: Response: No adverse reaction [facility] Medication: 18:43 VIS not applicable for this client. 3 Outcome: 15:22 Decision to Hospitalize by Provider. kb 19:00 Patient left the ED. iw Signatures: Dispatcher [employer] EDMS Carolina Gabriel, PUMP ATTENDANT-C PUMP ATTENDANT-Ckb Sandra Rivas RN RN iw Saad Quispe RN RN jl7 Aure Petersen Erin RN RN eh3 Meli Becerril, RN RN cm10
--- NOTE | 2023-05-12 15:23 | EDPHYS ---
Physician Documentation [facility] Name: Marry Chowdary Age: 72 yrs Sex: Female : 1950 Arrival Date: 05/12/2023 Time: 12:22 Bed 20 Private MD: Kina Barajas ED Physician Chris Tompkins HPI: 05/12 14:15 This 72 yrs old Black Female presents to ER via Wheelchair with complaints of Leg kb Swelling, Eye Problem. 14:15 The patient presents with swelling. The complaints affect the right leg and left leg. kb Context: The problem was sustained at home, resulted from CHF, the patient can partially bear weight. Onset: The symptoms/episode began/occurred 3 day(s) ago. Modifying factors: The symptoms are alleviated by nothing. the symptoms are aggravated by nothing. Associated signs and symptoms: Pertinent positives: swelling, Pertinent negatives calf tenderness, fever, nausea, numbness, rash, tingling, vomiting, warmth, weakness. Treatment prior to arrival includes: no previous treatment. Severity of symptoms: At their worst the symptoms were moderate, in the emergency department the symptoms are unchanged. The patient has experienced similar episodes in the past. The patient has not recently seen a physician. Pt reports lower extremity edema that started 3 days ago. Denies shortness of breath. Family also reports that her left eye is not moving like normal, which they noticed today. pt denies any visual changes.. Historical: - Allergies: 12:42 No Known Allergies; cm10 - Home Meds: 13:30 amiodarone 200 mg Oral tab 0.5 tab once daily [Active]; Eliquis 5 mg Oral tab 1 tab 2 eh3 times per day [Active]; Entresto 97-103 mg Oral tab 1 tab 2 times per day [Active]; furosemide 20 mg Oral tab 1 tab once daily [Active]; metoprolol succinate 100 mg Oral CSpX 1 cap BID [Active]; - PMHx: 12:42 Arthritis; Atrial fibrillation; Congestive heart failure; Hyperlipidemia; Hypertension; cm10 - PSHx: 12:42 Cholecystectomy; hysterectomy; cm10 - Immunization history:: Adult Immunizations unknown. - Social history:: Smoking status: Patient denies any tobacco usage or history of. ROS: 14:14 Constitutional: Negative for fever, chills, and weight loss. kb 14:14 Cardiovascular: Positive for edema. 14:14 All other systems are negative. Exam: 14:12 Constitutional: This is a well developed, well nourished patient who is awake, alert, kb and in no acute distress. Head/Face: Normocephalic, atraumatic. ENT: Moist Mucous membranes Cardiovascular: Regular rate and rhythm with a normal S1 and S2. No gallops, murmurs, or rubs. No pulse deficits. Respiratory: Respirations even and unlabored. No increased work of breathing. Talking in full sentences Abdomen/GI: Soft, non-tender. No distention Skin: Warm, dry with normal turgor. Normal color. MS/ Extremity: Pulses equal, no cyanosis. Neurovascular intact. Full, normal range of motion. Neuro: Awake and alert, GCS 15, oriented to person, place, time, and situation. Moves all extremities. Normal gait. 14:12 Eyes: Periorbital structures: appear normal, Pupils: equal, round, and reactive to light and accomodation, Extraocular movements: gaze deviation towards the lateral on left eye, Conjunctiva: normal, Visual vazquez: are intact. 14:12 Cardiovascular: Edema: 3+ edema to level of bilateral lower extremities. 14:12 ECG was reviewed by the Attending Physician. Vital Signs: 12:40 BP 146 / 91; Pulse 74; Resp 18; Temp 97.6; Pulse Ox 99% ; Weight 75.3 kg; Height 5 ft. cm10 7 in. ; Pain 0/10; 13:30 BP 149 / 98; Pulse 77; Resp 20; Pulse Ox 97% on R/A; eh3 14:30 BP 146 / 92; Pulse 76; Resp 20; Pulse Ox 96% on R/A; eh3 15:30 BP 131 / 81; Pulse 83; Resp 20; Pulse Ox 96% on R/A; eh3 16:30 BP 129 / 71; Pulse 74; Resp 20; Pulse Ox 98% on R/A; eh3 17:30 BP 138 / 69; Pulse 76; Resp 20; Pulse Ox 95% on R/A; eh3 18:30 BP 128 / 73; Pulse 79; Resp 20; Pulse Ox 95% on R/A; eh3 12:40 Body Mass Index 26.00 (75.30 kg, 170.18 cm) cm10 12:40 Pain Scale: Adult cm10 MDM: 12:27 Patient medically screened. kb 14:14 Data reviewed: vital signs, nurses notes. kb 14:17 Differential diagnosis: CHF exacerbation, DVT, pulmonary edema. Consideration of kb Admission/Observation Patient was admitted/placed on observation. Escalation of care including admission/observation considered. Historians other than the Patient: Daughter/Son: daughter. Care significantly affected by the following chronic conditions: Hypertension, Congestive Heart Failure. 14:59 Management of patient was discussed with the following: Hair Preparer: Dr Ally last consulted . 15:08 Counseling: I had a detailed discussion with the patient and/or guardian regarding: the kb historical points, exam findings, and any diagnostic results supporting the discharge/admit diagnosis, lab results, radiology results, the need for further work-up and treatment in the hospital. 15:49 Management of patient was discussed with the following: Hospitalist: Jayme accepts pt kb for admission under Dr Sotelo. 05/12 12:38 Order name: Basic Metabolic Panel; Complete Time: 15:06 kb 05/12 12:38 Order name: CBC with Diff; Complete Time: 15:00 kb 05/12 12:38 Order name: Magnesium; Complete Time: 15:06 kb 05/12 12:38 Order name: NT PRO-BNP; Complete Time: 15:06 kb 05/12 12:38 Order name: PT-INR; Complete Time: 14:19 kb 05/12 12:38 Order name: Troponin HS; Complete Time: 15:06 kb 05/12 17:14 Order name: Basic Metabolic Panel [facility] 05/12 17:20 Order name: Magnesium [facility] 05/12 17:20 Order name: Phosphorus [facility] 05/12 17:20 Order name: Urinalysis w/ reflexes [facility] 05/12 17:20 Order name: Basic Metabolic Panel [facility] 05/12 17:20 Order name: Basic Metabolic Panel [facility] 05/12 17:20 Order name: CBC with Automated Diff [facility] 05/12 17:20 Order name: CBC with Automated Diff [facility] 05/12 17:20 Order name: NT PRO-BNP [facility] 05/12 17:20 Order name: NT PRO-BNP [facility] 05/12 12:38 Order name: XRAY Chest (1 view); Complete Time: 13:10 kb 05/12 12:58 Order name: CT Head Brain wo Cont; Complete Time: 13:27 kb 05/12 12:38 Order name: EKG; Complete Time: 12:39 kb 05/12 17:20 Order name: CONS Physician Consult [facility] 05/12 17:20 Order name: Heart Healthy [facility] 05/12 12:38 Order name: Cardiac monitoring; Complete Time: 13:52 kb 05/12 12:38 Order name: EKG - Nurse/Tech; Complete Time: 14:10 kb 05/12 12:38 Order name: IV Saline Lock; Complete Time: 13:50 kb 05/12 12:38 Order name: Labs collected and sent; Complete Time: 13:50 kb 05/12 12:38 Order name: O2 Per Protocol; Complete Time: 13:52 kb 05/12 12:38 Order name: O2 Sat Monitoring; Complete Time: 13:52 kb 05/12 14:02 Order name: Labs - recollect needed: recollect all tubes; Complete Time: 14:21 bd EC:12 Rate is 75 beats/min. Rhythm is regular. QRS [place] is Normal. MT interval is prolonged kb at 212 msec. QRS interval is normal at 102 msec. QT interval is normal at 484 msec. Administered Medications: 13:52 Drug: Furosemide IVP 40 mg Route: IVP; Site: left antecubital; eh3 14:48 Follow up: Response: No adverse reaction eh3 15:18 Drug: Potassium Chloride PO 40 mEq Route: PO; eh3 18:08 Follow up: Response: No adverse reaction eh3 Disposition: 19:26 I reviewed the patient's care provided by the Advanced Practice Provider and agree with jr11 the diagnosis and treatment plan. Disposition Summary: 05/12/23 15:22 Hospitalization Ordered Hospitalization Status: Observation Provider: Eric Sotelo Location: Telemetry/MedSurg (observation) kb Condition: Stable kb Problem: an acute exacerbation kb Symptoms: are unchanged kb Bed/Room Type: Standard Room Assignment: [facility](05/12/23 18:30) bd Diagnosis - Unspecified combined systolic (congestive) and diastolic (congestive) heart failure kb Forms: - Medication Reconciliation Form kb - SBAR form kb Signatures: Dispatcher [employer] [facility] Carolina Gabriel FNP-C FNP-Xenia Barone Jose, MD MD [id number] Sonam Cunningham RN RN eh3 Meli Becerril RN RN cm10 Corrections: (The following items were deleted from the chart) 18:30 15:22 kb bd
[2023-05-12] MEDS ORDERED: TRAMADOL HCL 50 MG TAB PO PRN (17:14)
[2023-05-12] MEDS ORDERED: ACETAMINOPHEN 325 MG TABLET PO PRN (17:14)
[2023-05-12] MEDS ORDERED: ONDANSETRON 4 MG/2 ML VIAL IV PRN (17:18)
[2023-05-12] MEDS ORDERED: HYDRALAZINE HCL 20 MG/ML VIAL IV PRN (17:22)
--- NOTE | 2023-05-12 17:23 | P.HP ---
Certification for Inpatient Patient admitted to: Inpatient With expected LOS: >2 Midnights Patient will require the following post-hospital care: None Practitioner: I am a practitioner with admitting privileges, knowledge of patient current condition, hospital course, and medical plan of care. Services: Services provided to patient in accordance with Admission requirements found in Title 42 Section 412.3 of the Code of Federal Regulations Patient History Date of Service: 05/12/23 Reason for admission: BLE edema, SOB History of Present Illness: Patient is a 72-year-old female with a past medical history significant for osteoarthritis, hyperlipidemia, hypertension, CHF, A. fib who presents with complaint of BLE edema that has been ongoing for a while. Patient is a poor historian and unable to provide accurate history. Patient reported associated signs and symptoms of shorth of breath, orthopnea and cough. Patient reported that shortness of breath is aggravated with exertion and relieved by nothing. Patient denies any other signs and symptoms. Patient decided to present to the hospital due to worsening symptoms. Allergies No Known Allergies Allergy (Verified 04/13/15 10:06) Home medications list reviewed: No Home Medications: Apixaban [Eliquis *] 5 mg PO BID #60 tablet 11/08/22 Furosemide [Lasix*] 40 mg PO DAILY #30 tab 11/08/22 Potassium Chloride [K-Dur] 10 meq PO DAILY #30 tab 11/08/22 Ensure Max Protein 330 ml PO BID #60 can 04/12/23 Metoprolol Tartrate [Lopressor*] 100 mg PO BID 6AM 6PM 05/12/23 Sacubitril/Valsartan [Entresto 97 mg-103 mg Tablet] 1 tab PO BID 05/12/23 - Past Medical/Surgical History Diabetic: No -: chronic systolic CHF -: A-fib -: Anemia of Chronic disease -: Hypertension -: Hyperlipidemia -: Osteoarthritis -: Covid -: GI bleed -: Cholecystectomy -: Hysterectomy - Family History Family History: Reviewed- Non-Contributory - Social History Smoking Status: Never smoker Alcohol use: No CD- Drugs: No Caffeine use: No Place of Residence: Home Review of Systems General: Unremarkable Eyes: Unremarkable ENT: Unremarkable Respiratory: Cough, Shortness of Breath Cardiovascular: Orthopnea Gastrointestinal: Unremarkable Genitourinary: Unremarkable Musculoskeletal: Pedal edema Integumentary: Unremarkable Neurological: Unremarkable Lymphatics: Unremarkable Physical Examination - Physical Exam General: Alert, In no apparent distress, Oriented x3, Cooperative HEENT: Atraumatic, PERRLA, Mucous membr. moist/pink, EOMI, Sclerae nonicteric Neck: Supple, 2+ carotid pulse no bruit, No LAD, Without JVD or thyroid abnormality Respiratory: Diminished Cardiovascular: Normal S1 S2, Edema, Irregular heart rate/rhythm Capillary refill: <2 Seconds Gastrointestinal: Normal bowel sounds, Distended Musculoskeletal: No clubbing, No contractures Integumentary: No rashes Neurological: Normal speech, Normal tone, Normal affect Lymphatics: No axilla or inguinal lymphadenopathy - Studies Laboratory Data (last 24 hrs) 05/12/23 05/12/23 05/12/23 14:19 14:19 13:47 WBC 5.30 Hgb 14.9 Hct 47.1 H Plt Count 107 L PT 10.5 INR 0.88 Sodium 143 Potassium 2.6 L* BUN 20 H Creatinine 1.24 H Glucose 84 Magnesium 1.9 Assessment and Plan - Plan --Acute on chronic systolic CHF exacerbation. Patient placed on Lasix. Cardiology consulted. Daily weight and strict I/O. We will await further recommendation from security ambassador. --Elevated troponin level. Patient has a history of elevated troponin. We will continue to trend troponin levels. Telemetry to monitor for any significant arrhythmia. Further management per security ambassador. --Atrial fibrillation. Continue amiodarone, metoprolol and Eliquis . --Hypertension. Poorly controlled. Continue home medications and hydralazine as needed. --Hyperlipidemia. Continue statin. --Anemia of chronic disease. H&H stable. We will continue to monitor hemoglobin and transfuse if less than 7.0. --CKD 3B. Stable. We will continue to monitor renal functions. --Osteoarthritis. We will manage pain with current pain medication regimen. --Hypokalemia. Replete as needed. --DVT prophylaxis with Eliquis. Discharge Plan: Home Plan to discharge in: Greater than 2 days - Advance Directives Does patient have a Living Will: Yes Does patient have a Durable POA for Healthcare: No - Code Status/Comfort Care Code Status Assessed: Yes Physician Review: Patient Assessed, Agree with Above Assessment and Plan Critical Care: No
--- NOTE | 2023-05-12 18:48 | EKG ---
Test Date: 2023-05-12 Test Time: 14:06:37 Bulk Tank Car Unloader: SONIA MEASUREMENT RESULTS: Intervals: Rate: 75 KS: 212 QRSD: 102 QT: 434 QTc: 484 [place]: P: 43 KS: 212 QRS: 123 T: -38 INTERPRETIVE STATEMENTS: Sinus rhythm with 1st degree AV block with premature atrial complexes with aberrant conduction Septal infarct, age undetermined Lateral infarct, age undetermined ST & T wave abnormality, consider inferior ischemia Abnormal ECG Compared to ECG 04/10/2023 10:40:44 Atrial premature complex(es) now present First degree AV block now present Aberrant conduction of supraventricular beat(s) now present Ventricular premature complex(es) no longer present Myocardial infarct finding still present ST (T wave) deviation still present Possible ischemia still present Electronically Signed On 05-12-23 18:47:29 CDT by Alejandro Jose
[2023-05-12 19:05] LABS: Potassium 2.7 mEq/L (3.5-5.1)
[2023-05-12 19:08] LABS: Magnesium 1.8 mg/dL (1.6-2.4)
[2023-05-12 19:26] VITALS: BMI 25.9
[2023-05-12] MEDS: APIXABAN 5 MG TABLET PO SCH (19:43)
[2023-05-12] MEDS: POTASS/SODIUM PHOSPHATE 1 PKT POWD.PACK PO SCH (22:59)
[2023-05-13] MEDS: POTASS/SODIUM PHOSPHATE 1 PKT POWD.PACK PO SCH ×2 (00:05→01:22)
[2023-05-13] MEDS: METOPROLOL TAR 25 MG TAB PO SCH ×2 (05:23→18:16)
[2023-05-13 06:47] LABS: Absolute Lymphocytes (CBC) 1.7 K/uL (0.7-4.9); Lymphocytes % 25.8 % (15.3-44.8); MPV 9.6 fL (7.6-11.3); Platelets 123 thou/uL (152-406); RBC Red Blood Cell Count 4.39 M/uL (3.86-4.86)
--- NOTE | 2023-05-13 06:52 | P.PN ---
Date of Service: 05/13/23 Subjective: feeling very weak, poor balance per family, +SOB with minimal activity reports missing a few doses of lasix this past week new vision troubles - unknown exact onset. family reports "some time", noticed patient can't move left eye completely to right patient denies double vision. saw opstometrist ~2 weeks ago ROS: 10 point ROS as noted above, otherwise negative Physical Exam: GEN: Alert, oriented, NAD, generalized weakness HEENT: Normal conjunctiva, sclera anicteric CV: Regular rate and rhythm, 2+ BLE edema Pulm: Nonlabored respirations on room air, diminished at bases b/l, +crackles/rales ABD: Soft, nontender, nondistended Neuro: Normal speech, normal affect, L eye unable to move past midline medially, with decreased vision by confrontation on right hemisphere of left eye vitals reviewed Problem List: Acute on chronic systolic CHF exacerbation. A-fib, chronic; on anticoagulation Generalized Weakness L eye horizontal palsy Hypertension Hyperlipidemia Anemia of chronic disease CARMELITA on CKD 3B. Osteoarthritis Hypokalemia h/o DVT s/p IVC filter Acute on chronic systolic CHF exacerbation Patient reports missing a few doses of lasix this past week trend troponins - elevated x3. Monitor on telemetry EF: 35-40% - January 2022; reports getting an echo done ~2-3 months ago Cardiology consulted continue Lasix Echo ordered Generalized Weakness L eye horizontal palsy Family reports patient has been feeling weak with poor balance recently; +new vision troubles - L eye palsy / vision loss CT head (05/12): negative for acute findings exam somewhat limited by patient participation / following instruction due to be tired; but appeared to be unilateral L medial rectus palsy MRI brain ordered (05/13) r/o CVA Neuro consulted PT consult A-fib, chronic; on anticoagulation Continue amiodarone, metoprolol and Eliquis CARMELITA on CKD 3B. Nephrology consulted renal u/s ordered 05/13 added aldactone 05/13 continue to monitor renal function Hypertension. Continue home medications and hydralazine as needed. Hyperlipidemia. Continue statin Anemia of chronic disease. H&H stable. transfuse if hgb < 7 Osteoarthritis. PRN pain medication Hypokalemia. Replete as needed. VTE: home eliquis Code: Full Dispo: likely will need / benefit from SNF ongoing weakness / vision issues, and recurrent admissions due to chf, would benefit from ongoing PT/OT [facility]
[2023-05-13 07:30] LABS: Potassium 3.9 mEq/L (3.5-5.1)
[2023-05-13 07:32] LABS: Troponin High Sensitivity 212.8 pg/mL (<58.9)
[2023-05-13 07:35] LABS: Magnesium 1.7 mg/dL (1.6-2.4)
[2023-05-13] MEDS ORDERED: BENZONATATE 100 MG CAP PO PRN (08:24)
[2023-05-13] MEDS: ENSURE MAX PROTEIN 330 ML LIQUID PO SCH ×2 (09:00→21:00)
[2023-05-13] MEDS: FUROSEMIDE 40 MG/4 ML VIAL IV SCH ×2 (09:36→16:00)
[2023-05-13] MEDS: APIXABAN 5 MG TABLET PO SCH ×2 (09:36→20:36)
[2023-05-13] MEDS: ASPIRIN 81 MG CHEWABLE TABLET PO SCH (09:36)
[2023-05-13] MEDS: POTASSIUM CL SA 10 MEQ TAB PO SCH (09:36)
[2023-05-13 09:38] LABS: Thyroid Stimulating Hormone 3.19 uIU/mL (0.358-3.740)
[2023-05-13] MEDS: SPIRONOLACTONE 25 MG TABLET PO SCH (11:30)
[2023-05-13] MEDS: HOME MED 1 EA UNK (Sacubitril/Valsartan [Entresto 97 Mg-103 Mg Tablet] Tablet) PO SCH ×2 (11:30→20:36)
--- NOTE | 2023-05-13 12:09 | CON ---
Date of Consultation: 05/13/2023 Reason For Consultation: Elevated BUN and creatinine, fluid management, over volume. History Of Present Illness: This is a 72-year-old female with significant past medical history of hy pertension, CAD complicated with congestive heart failure, ejection fraction of 40%, AFib, osteoarthr itis, chronic kidney disease stage 3, baseline creatinine 1.2, GFR of 44 as of October 2022, the david ent came to the hospital complaining from shortness of breath, increased in leg swelling and increase d orthopnea. Found to be over volume. The patient admits that she has been taking her Lasix, but sh e is missing a few days. The patient not on any fluid restriction. The patient was started on diure sis, still has leg swelling, hypothyroidism has been ruled out. Past Medical History: Includes; 1.Congestive heart failure, ischemic with ejection fraction of 40%. 2.Hypertension. 3.Hyperlipidemia. 4.Osteoarthritis. 5.AFib. 6.CAD. 7.Chronic kidney disease, stage 3B. Baseline creatinine 1.2, GFR of 44 as of October 2022. Allergies: NO KNOWN DRUG ALLERGIES. Home Medications: Include Lasix, Eliquis, KCl, metoprolol, and Entresto. Past Surgical History: Includes; 1.Hysterectomy. 2.Cholecystectomy. Family History: Positive for hypertension. Social History: Denied smoking, denied drinking, denied drugs abuse. Review of Systems: Head and Neck: No red eye. No ear pain. GI: No nausea. No vomiting. : No polyuria. No dysuria. No hematuria. [place]: No vaginal discharge. Respiratory: Has shortness of breath. Cardiovascular: Has leg swelling. Has orthopnea. Endocrine: No polydipsia. Skin: No rash. Neuro: No weakness. Musculoskeletal: Generalized fatigue. Physical Examination: Vital Signs: When I saw the patient; blood pressure 157/94, pulse of 75, afebrile. The patient had urine output of 350. The patient positive 150. Chest: Crackles bilateral. Heart: S1, S2. Systolic murmur. Abdomen: Soft, nontender. Extremities: +1 edema. Neurologic: Alert. No focality. Laboratory Data: WBC 6.6, H and H 14.7/46. Sodium 145, potassium 3.9, bicarb 27, BUN 19, creatinine 1.3, GFR of 42, calcium 8.1, TSH 3.1. Current Medications: The patient on include Eliquis 5 mg b.i.d., aspirin, hydralazine metoprolol 100 b.i.d., Tylenol, Ensure, Lasix 40 b.i.d., Zofran, and tramadol, Entresto, KCl. Assessment And Plan: 1.Acute kidney injury on chronic kidney disease secondary to cardiorenal syndrome, over volume with respiratory symptoms. I agree with increasing the Lasix 40 mg b.i.d. with the presence of hypokalemi a and low ejection fraction. I am going to add aldactone to her regimen and we will continue to britany tor the patient. I am going to send for renal ultrasound and PTH to confirm the chronicity of the di sease. 2.Anasarca secondary to cardiorenal as above with diuresis. We will send for PC ratio to evaluate i f there is any other component. Continue diuresis. Add spironolactone. Hypothyroidism has been rul ed out. 3.Hypokalemia with the presence of over volume. Add spironolactone. We will continue supplement. I am going to check for magnesium and we will follow up the patient. Hypothyroidism has been ruled o ut. 4.Anasarca secondary to cardiorenal syndrome as above. 5.Congestive heart failure with exacerbation as above. 6.Hypertension. We will try to utilize blood pressure for more diuresis, continue Entresto. I agre e with increasing the Lasix. We will add spironolactone. Thank you, Dr. Sotelo, for allowing us to participate in the care of your patient. Time spent examining the patient [id number], reviewing data, lab and radiology, placing order, disc ussing the case with the meat team member including hospitalist and nursing staff more than 75 minutes. TELLO Voice ID: [id number] Report ID: [id number]
[2023-05-13] MEDS ORDERED: POTASSIUM PHOS IN 0.9 % NACL 15 MMOL/250 ML BAG IV ONE (14:15)
--- NOTE | 2023-05-13 14:41 | RAD REPORT ---
EXAM DESCRIPTION: US - Renal Ultrasound-Complete - 05/13/2023 2:27 pm CLINICAL HISTORY: Acute renal insufficiency COMPARISON: 2020 FINDINGS: The right kidney measures 9 cm with a normal echotexture. Hydronephrosis is not seen. Left kidney was very poorly visualized due to a combination of overlying bowel gas and the patient be ing unable to move. There is also poor evaluation of the bladder IMPRESSION: Unremarkable sonogram right kidney Nonvisualization of the left kidney as described above
--- NOTE | 2023-05-13 15:56 | RAD REPORT ---
EXAM DESCRIPTION: MRI - Brain Wo Cont - 05/13/2023 3:35 pm CLINICAL HISTORY: Vision loss COMPARISON: Head CT May 12, 2023 TECHNIQUE: Axial, sagittal, and coronal magnetic resonance images of the brain were obtained. FINDINGS: Images are significantly degraded by patient motion artifact Mild to moderate signal within periventricular, deep and subcortical white matter probably ischemic c hanges secondary to small vessel disease Diffusion-weighted/ADC mapping demonstrates 4 millimeter area of abnormal signal deep white matter le ft parietal lobe. The ventricles are normal caliber. An extra-axial fluid collection is not noted. Fluid within the sinuses/mastoids is not seen IMPRESSION: Images are significantly degraded by patient motion artifact 4 millimeter area of abnormal signal deep white matter left parietal lobe could indicate acute infarc tion or artifact. This should be correlated clinically
[2023-05-13] MEDS ORDERED: MAGNESIUM SULFATE 1 gm IVPB 1 GM/100 ML BAG IV ONE (20:07)
[2023-05-13] MEDS: ATORVASTATIN 40 MG TAB PO SCH (20:36)
[2023-05-14 02:36] LABS: Albumin 2.9 g/dL (3.4-5.0); Magnesium 2.1 mg/dL (1.6-2.4); Phosphorus 3.7 mg/dL (2.5-4.9); Potassium 4.3 mEq/L (3.5-5.1)
[2023-05-14] MEDS: METOPROLOL TAR 25 MG TAB PO SCH ×2 (05:25→18:50)
--- NOTE | 2023-05-14 07:04 | P.PN ---
Date of Service: 05/14/23 Subjective: minimal appetite, +drinking less fluids; agreeable to using PEG tube minimal to no urine output overnight; denies abdominal pain worked with PT yesterday, unable to do standing transfers d/t decreased lower extremity strength1 ROS: 10 point ROS as noted above, otherwise negative Physical Exam: GEN: Alert, oriented, NAD, generalized weakness, PEG tube in place HEENT: Normal conjunctiva, sclera anicteric CV: Regular rate and rhythm, 2+ BLE edema Pulm: Nonlabored respirations on 2L NC, diminished at bases b/l, +crackles/rales ABD: Soft, nontender, nondistended Neuro: Normal speech, L eye unable to move past midline medially, with decreased vision by confrontation on right hemisphere of left eye, mild peripheral decreased vision of right hemisphere of right eye PEG tube in place vitals reviewed Problem List: Acute on chronic systolic CHF exacerbation. A-fib, chronic; on anticoagulation Generalized Weakness L eye horizontal palsy acute CVA Hypertension Hyperlipidemia Anemia of chronic disease CARMELITA on CKD 3B. Osteoarthritis Hypokalemia h/o DVT s/p IVC filter Acute on chronic systolic CHF exacerbation CXR (05/14): ordered Patient reports missing a few doses of lasix this past week trend troponins - elevated x4. Monitor on telemetry Echo (January 2022): EF: 35-40% Echo (05/13): EF: 22%, Severe global hypokinesis, left atrial enlargement, moderate aortic insufficency, mild MR, severe TR, Severe pulmonary hypertension Cardiology consulted continue Lasix patient still with significant edema Generalized Weakness L eye horizontal palsy acute CVA Family reports patient has been feeling weak with poor balance recently; +new vision troubles - L eye palsy / vision loss CT head (05/12): negative for acute findings MRI brain (05/13): 4mm area of abnormal signal deep white matter left parietal lobe could indicate acute infarction or artifact. Images significantly degraded by patient motion artifact. exam somewhat limited by patient participation / following instruction due to be tired; but appeared to be unilateral L medial rectus palsy Neuro consulted - currently out of town PT consulted Carotid u/s ordered (05/14) PEG in place, has not been used in >1 yr, confirm placement and start tube feeds - patient/family agreeable A-fib, chronic; on anticoagulation Continue amiodarone, metoprolol and Eliquis CARMELITA on CKD 3B. renal u/s (05/13): unremarkable Nephrology consulted continue aldactone continue to monitor renal function slightly worse 05/14 Hypertension. Continue home medications and hydralazine as needed. Hyperlipidemia. Continue statin Anemia of chronic disease. H&H stable. transfuse if hgb < 7 Osteoarthritis. PRN pain medication Hypokalemia. Replete as needed. VTE: home eliquis Code: Full Dispo: likely will need / benefit from SNF ongoing weakness / vision issues/CVA, and recurrent admissions due to chf, would benefit from ongoing PT / OT / detention
[2023-05-14] MEDS: FUROSEMIDE 40 MG/4 ML VIAL IV SCH ×3 (09:00→11:48)
[2023-05-14] MEDS: ENSURE MAX PROTEIN 330 ML LIQUID PO SCH ×2 (09:00→20:34)
[2023-05-14] MEDS: SPIRONOLACTONE 25 MG TABLET PO SCH (10:13)
[2023-05-14] MEDS: APIXABAN 5 MG TABLET PO SCH ×2 (10:14→20:34)
[2023-05-14] MEDS: ASPIRIN 81 MG CHEWABLE TABLET PO SCH (10:14)
[2023-05-14] MEDS: HOME MED 1 EA UNK (Sacubitril/Valsartan [Entresto 97 Mg-103 Mg Tablet] Tablet) PO SCH ×2 (10:14→20:33)
[2023-05-14] MEDS: POTASSIUM CL SA 10 MEQ TAB PO SCH (10:14)
--- NOTE | 2023-05-14 11:26 | RAD REPORT ---
EXAM DESCRIPTION: RAD - ENTEROSTOMY TUBE CHECK W/CONTR - 05/14/2023 11:18 am CLINICAL HISTORY: Evaluate gastrostomy tube FINDINGS: 30 cc Gastrografin was administered into the percutaneous gastrostomy tube. The gastric fu ndus is opacified. No extravasation of contrast Zero fluoroscopy performed. Zero fluoroscopic spot images obtained
--- NOTE | 2023-05-14 11:40 | RAD REPORT ---
EXAM DESCRIPTION: Kevon Single View05/14/2023 11:18 am CLINICAL HISTORY: Chest pain COMPARISON: May 12, 2023 FINDINGS: Moderate bilateral pulmonary opacities without significant change. There may be a small to moderate right pleural effusion. Heart remains enlarged IMPRESSION: These findings may represent CHF
[2023-05-14] MEDS: CALCITROL 0.25 MCG CAP PO SCH (11:55)
--- NOTE | 2023-05-14 12:29 | RAD REPORT ---
EXAM DESCRIPTION: USCarotid Artery Bilateral05/14/2023 10:58 am CLINICAL HISTORY: CVA COMPARISON: 2020 MRA neck FINDINGS: The velocity of the right internal carotid artery equals 42 cm/sec. The right ICA/CCA rati o 1.4 The velocity of the left internal carotid artery equals 28 cm/sec. The left ICA/CCA ratio 0.9 Mild plaque is present within the carotid arteries. The vertebral arteries demonstrate antegrade flow 2.3 centimeter nodule right lobe thyroid gland IMPRESSION: Mild plaque within the carotid arteries without evidence of a hemodynamically significan t stenosis NASCET criteria used. Mild 0-49% stenosis Moderate 50-69% stenosis Severe 70-99% stenosis 2.3 centimeter right thyroid nodule. Dedicated thyroid ultrasound recommended
--- NOTE | 2023-05-14 13:12 | PN ---
Date of Progress Note: 05/14/2023 Subjective: The patient was admitted with acute kidney injury, anasarca. The patient was started on diuresis. Kidney function started being declining yesterday. We added spironolactone. Physical Examination: Vital Signs: When I saw the patient; blood pressure 135/100 pulse of 73. The patient had good urine output. Chest: Decreased entry on bilateral base, more prominent on the left side. Heart: S1, S2. Systolic murmur. Abdomen: Soft, nontender. Extremity: +1 edema. Neuro: Alert. No focality. Laboratory Data: Hemoglobin 14.7. Sodium 146, potassium 4.3, bicarb 25, BUN 25, creatinine 1.8, GFR 28, calcium 8.5, phosphorus 3.7, albumin is 2.9. TSH 3.1. Current Medications: The patient on include; 1. Eliquis. 2. Aspirin. 3. Atorvastatin 40. 4. Metoprolol 100 b.i.d. 5. Spironolactone 25 b.i.d. 6. Lasix 40 b.i.d. 7. Tramadol. 8. Entresto. 9. KCl. Assessment And Plan: 1. Acute kidney injury secondary to cardiorenal, looked to me the patient started being normal volume. I am going to go ahead and decrease the Lasix to 40 mg daily and we will monitor the patient. I am going to continue spironolactone. 2. Hypertension, controlled, optimal. Continue current medication, except decreasing the Lasix. 3. Hypokalemia, resolved. I am going to go ahead and discontinue potassium supplement. Continue spironolactone and Entresto. 4. Congestive heart failure with exacerbation. Volume status has been optimized. We will continue to monitor. 5. Anasarca secondary to cardiorenal. Continue diuresis with new dose of Lasix. 6. Secondary hyperparathyroidism. I am going to start the patient on calcitriol. Time spent examining the patient [id number], reviewing data, lab and radiology, placing order, discussing the case with the steam powerplant supervisor including hospitalist and nursing staff more than 35 minutes. TELLO Voice ID: [id number] Report ID: [id number] [facility]ENTERZhanna
--- NOTE | 2023-05-14 14:25 | ECHO ---
HEIGHT: 5 ft 7 in WEIGHT: 166 lb 0 oz DATE OF STUDY: 05/13/[address]: Richard Barrios MD 2-DIMENSIONAL: YES M.MODE: YES DOPPLER: YES COLOR FLOW: YES TDS: PORTABLE: YES DEFINITY: BUBBLE STUDY: DIAGNOSIS: CONGESTIVE HEART FAILURE/ ELEVATED TROPONIN CARDIAC HISTORY: CATHERIZATION: NO SURGERY: NO PROSTHETIC VALVE: NO PACEMAKER: NO MEASUREMENTS (cm) DIASTOLIC (NORMALS) SYSTOLIC (NORMALS) IVSd 1.1 (0.6-1.2) LA Diam 4.6 (1.9-4.0) LVEF 22% LVIDd 4.3 (3.5-5.7) LVIDs 3.9 (2.0-3.5) %FS 10% LVPWd 1.2 (0.6-1.2) Ao Diam 2.6 (2.0-3.7) 2 DIMENSIONAL ASSESSMENT: RIGHT ATRIUM: NORMAL LEFT ATRIUM: ENLARGED RIGHT VENTRICLE: NORMAL LEFT VENTRICLE: DEPRESSED EJECTION FRACTION TRICUSPID VALVE: SEVERE TRICUSPID REGURGITATION MITRAL VALVE: MILD MITRAL REGURGITATION PULMONIC VALVE: MILD PULMONIC INSUFFICIENCY AORTIC VALVE: MODERATE AORTIC INSUFFICIENCY PERICARDIAL EFFUSION: NONE AORTIC ROOT: NORMAL LEFT VENTRICULAR WALL MOTION: SEVERE GLOBAL HYPOKINESIS DOPPLER/COLOR FLOW: SEE BELOW COMMENTS: 1. SEVERELY DEPRESSED LEFT VENTRICULAR EJECTION FRACTION 20-25% 2. SEVERE GLOBAL HYPOKINESIS 3. LEFT ATRIAL ENLARGEMENT 4. MODERATE AORTIC INSUFFICIENCY 5. MILD MITRAL REGURGITATION 6. SEVERE TRICUSPID REGURGITATION 7. SEVERE PULMONARY HYPERTENSION WITH RIGHT VENTRICULAR SYSTOLIC PRESSURE GREATER THAN 60 mmHg TECHNOLOGIST: THIEN DYKES
--- NOTE | 2023-05-14 19:03 | RAD REPORT ---
EXAM DESCRIPTION: US - Thyroid Para Parotid Gland - 05/14/2023 6:39 pm CLINICAL HISTORY: evaluate thryoid nodule Neck pain COMPARISON: Carotid Artery Bilateral dated 05/14/2023 FINDINGS: The isthmus of the thyroid measures 3 mm. The right lobe of the thyroid measures 5.6 x 2.6 x 2.2 cm. 2.3 x 2.0 cm nodule is present with calcif ications. The left lobe of the thyroid measures 3.8 x 1.3 x 1.0 cm. IMPRESSION: 2.3 cm right thyroid lobe nodule with calcifications and mild cystic degeneration. Recom mend ultrasound-guided FNA as an outpatient.
[2023-05-14] MEDS: ATORVASTATIN 40 MG TAB PO SCH (20:34)
[2023-05-15 02:31] LABS: Albumin 2.8 g/dL (3.4-5.0); Magnesium 2.2 mg/dL (1.6-2.4); Phosphorus 3.8 mg/dL (2.5-4.9); Potassium 4.7 mEq/L (3.5-5.1)
[2023-05-15] MEDS: METOPROLOL TAR 25 MG TAB PO SCH (05:30)
--- NOTE | 2023-05-15 07:00 | P.PN ---
Date of Service: 05/15/23 Subjective: Breathing slightly more comfortable today off oxygen this morning. O2 sat: 91 at rest feels overall slightly improved, but anuric overnight ROS: 10 point ROS as noted above, otherwise negative Physical Exam: GEN: Alert, oriented, NAD, generalized weakness, PEG tube in place HEENT: Normal conjunctiva, sclera anicteric CV: Regular rate and rhythm, 1+ BLE edema Pulm: Nonlabored respirations on room air, SpO2: 91%, diminished at bases b/l ABD: Soft, nontender, nondistended Neuro: Normal speech, L eye unable to move past midline medially, with decreased vision by confrontation on right hemisphere of left eye, mild peripheral decreased vision of right hemisphere of right eye PEG tube in place vitals reviewed Problem List: acute hypoxic respiratory failure secondary to Acute on chronic systolic CHF exacerbation. Generalized Weakness L eye horizontal palsy acute CVA CARMELITA on CKD 3B. Incidental 2.3 right thyroid lobe nodule A-fib, chronic; on anticoagulation Hypertension Hyperlipidemia Anemia of chronic disease Osteoarthritis Hypokalemia h/o DVT s/p IVC filter Acute on chronic systolic CHF exacerbation CXR (05/14): Moderate bilateral pulmonary opacities without significant change. +possible small-moderate pleural effusion Patient reports missing a few doses of lasix this past week trend troponins - elevated x4. Monitor on telemetry Echo (January 2022): EF: 35-40% Echo (05/13): EF: 22%, Severe global hypokinesis, left atrial enlargement, moderate aortic insufficency, mild MR, severe TR, Severe pulmonary hypertension Cardiology consulted Lasix on hold 05/15 given worsening renal function / minimal UOP patient still with significant edema Generalized Weakness L eye horizontal palsy acute CVA Family reports patient has been feeling weak with poor balance recently; +new vision troubles - L eye palsy / vision loss CT head (05/12): negative for acute findings MRI brain (05/13): 4mm area of abnormal signal deep white matter left parietal lobe could indicate acute infarction or artifact. Images significantly degraded by patient motion artifact. Carotid u/s (05/14): mild stenosis, +2.3 cm right thyroid nodule exam somewhat limited by patient participation / following instruction due to be tired; but appeared to be unilateral L medial rectus palsy Neuro consulted - currently out of town PT consulted PEG in place, has not been used in >1 yr, confirm placement and start tube feeds - patient/family agreeable 05/15 - Discussed code status with patient/family given patients worsening heart failure. Remain full code for now CARMELITA on CKD 3B renal u/s (05/13): unremarkable, but less than ideal imaging worsening renal function Cr 1.87 -> 2.78 (05/15) hold lasix/luis on 05/15, will give small amount of IVF at 50cc/hr insert onofre for accurate i/o's and r/o any retention possibility Nephrology consulted continue to monitor renal function Incidental 2.3 cm right thyroid lobe nodule first seen on carotid u/s Thyroid u/s (05/15): 2.3 cm right thyroid lobe nodule with calcifications and mild cystic degeneration f/u for outpatient ultrasound guided FNA thyroid studies ok A-fib, chronic; on anticoagulation. Continue amiodarone, metoprolol and Eliquis Hypertension. Continue home medications and hydralazine as needed. Hyperlipidemia. Continue statin Anemia of chronic disease. H&H stable. transfuse if hgb < 7 Osteoarthritis. PRN pain medication Hypokalemia. Replete as needed. VTE: home eliquis Code: Full Dispo: likely will need / benefit from SNF ongoing weakness / vision issues/CVA, and recurrent admissions due to chf, would benefit from ongoing PT / OT / assisted 05/15 - Discussed code status with patient/family given patients worsening heart failure. Remain full code for now
[2023-05-15] MEDS: FUROSEMIDE 40 MG/4 ML VIAL IV SCH (09:00)
[2023-05-15] MEDS: ENSURE MAX PROTEIN 330 ML LIQUID PO SCH ×2 (09:00→20:38)
[2023-05-15] MEDS: SPIRONOLACTONE 25 MG TABLET PO SCH (09:00)
[2023-05-15] MEDS: HOME MED 1 EA UNK (Sacubitril/Valsartan [Entresto 97 Mg-103 Mg Tablet] Tablet) PO SCH (10:52)
[2023-05-15] MEDS: APIXABAN 5 MG TABLET PO SCH ×2 (10:53→20:38)
[2023-05-15] MEDS: ASPIRIN 81 MG CHEWABLE TABLET PO SCH (10:54)
[2023-05-15] MEDS ORDERED: Ringers Lactate 250 ML IV SCH (14:00)
[2023-05-15] MEDS ORDERED: NA CHLORIDE 0.9% 500 ML IV SCH (17:00)
--- NOTE | 2023-05-15 17:26 | PN ---
Date of Progress Note: 05/15/2023 Subjective: The patient was admitted to the hospital with cardiorenal syndrome. The patient was diuresed. Kidney function declined further. The patient oliguric in the last 24 hours. Solorio was inserted today. No urine output. Physical Examination: Vital Signs: Blood pressure 153/70, pulse of 63, afebrile. Chest: Crackles bilateral base. Heart: S1, S2. Systolic murmur. Abdomen: Soft, nontender. Extremities: +1 edema. Neuro: Alert. No focality. No tremor. Laboratory Data: Hemoglobin 14.7. Sodium 145, potassium 4.7, bicarb 24, BUN 37, creatinine 2.7, GFR of 17, calcium 8.4, phosphorus 3.8, magnesium 2.2, albumin 2.8. PTH 321. Current Medications: The patient on include; 1. Lasix 40 mg. 2. Aspirin. 3. Eliquis. 4. Atorvastatin. 5. Metoprolol 100 b.i.d. 6. LR. 7. Entresto. 8. Calcitriol. Assessment And Plan: 1. Acute kidney injury, possible secondary to over diuresis/cardiorenal oliguric. I agree with holding the Lasix. I agree with the IV fluid given the current kidney function. I am going to use normal saline, avoid LR given the content of potassium, and we will monitor the patient. I had long discussion with the patient with the presence of the daughter that if kidney function continued to decline, the patient may need dialysis. I am going to go ahead and discontinue Entresto and we will monitor in the next 24 hours. I am going to go ahead and send for full serology for the patient. I agree with holding the spironolactone. 2. Hypertension with the presence of acute kidney injury. Hold all diuresis and we will follow up. 3. Secondary hyperparathyroidism. Continue calcitriol. 4. Congestive heart failure with exacerbation. Currently, the patient maintained on nasal cannula with good oxygenation with worsening kidney function. Hold the diuresis. We will follow up. We will start IV fluid as above. Time spent examining the patient [id number], reviewing data, lab and radiology, placing order, discussing the case with the team coordinator including hospitalist and nursing staff more than 35 minutes. TELLO Voice ID: [id number] Report ID: [id number] [facility]ITALZhanna
[2023-05-15] MEDS: JEVITY 1.5 CAL LIQUID 1,000 ML BOT FT SCH ×2 (17:28→20:38)
[2023-05-15] MEDS: METOPROLOL TAR 50 MG TAB PO SCH (17:30)
[2023-05-15] MEDS: ATORVASTATIN 40 MG TAB PO SCH (20:38)
[2023-05-16] MEDS: METOPROLOL TAR 50 MG TAB PO SCH ×2 (06:00→16:04)
--- NOTE | 2023-05-16 06:51 | P.PN ---
Date of Service: 05/16/23 Subjective: tolerated tube feeds last night, no abdominal pain refused all po food and meds, meds given through peg tube briefly discussed possible dialysis - temporary vs long-term patient initially told daughter "no" to dialysis discussed alternative may be comfort measures/hospice, if that would be somet rashid she is ready for patient asked for time to think about it anuric overnight NPO per nephrology for possible dialysis cath ROS: 10 point ROS as noted above, otherwise negative Physical Exam: GEN: Alert, appears fatigued, apathetic, generalized weakness, PEG tube in place, Onofre in place HEENT: Normal conjunctiva, sclera anicteric CV: Regular rate and rhythm, 1+ BLE edema Pulm: mild labored respirations at rest, diminished at bases b/l ABD: Soft, nontender, nondistended Neuro: Normal speech, L eye unable to move past midline medially, with decreased vision by confrontation on right hemisphere of left eye, mild peripheral decreased vision of right hemisphere of right eye PEG tube in place Onofre in place vitals reviewed Problem List: acute hypoxic respiratory failure secondary to Acute on chronic systolic CHF exacerbation. Generalized Weakness L eye horizontal palsy acute CVA CARMELITA on CKD 3B. Incidental 2.3 right thyroid lobe nodule A-fib, chronic; on anticoagulation Hypertension Hyperlipidemia Anemia of chronic disease Osteoarthritis Hypokalemia h/o DVT s/p IVC filter Acute on chronic systolic CHF exacerbation CXR (05/14): Moderate bilateral pulmonary opacities without significant change. +possible small-moderate pleural effusion Patient reports missing a few doses of lasix this past week trend troponins - elevated x4. Monitor on telemetry Echo (January 2022): EF: 35-40% Echo (05/13): EF: 22%, Severe global hypokinesis, left atrial enlargement, moderate aortic insufficency, mild MR, severe TR, Severe pulmonary hypertension Cardiology consulted Lasix on hold 05/15 given worsening renal function / minimal UOP given gentle IVF 05/15 edema improved Generalized Weakness L eye horizontal palsy acute CVA Family reports patient has been feeling weak with poor balance recently; +new vision troubles - L eye palsy / vision loss CT head (05/12): negative for acute findings MRI brain (05/13): 4mm area of abnormal signal deep white matter left parietal lobe could indicate acute infarction or artifact. Images significantly degraded by patient motion artifact. Carotid u/s (05/14): mild stenosis, +2.3 cm right thyroid nodule exam somewhat limited by patient participation / following instruction due to be tired; but appeared to be unilateral L medial rectus palsy Neuro consulted PT consulted PEG in place, has not been used in >1 yr, confirmed placement and started tube feeds - patient/family agreeable tube feeds started 05/16 CARMELITA on CKD 3B renal u/s (05/13): unremarkable, but less than ideal imaging Nephrology consulted worsening renal function held lasix/luis on 05/15, gentle IVF given 05/15 inserted onofre for accurate i/o's 05/15 05/16 - Discussed further plan of care with patient/family. Patient does not seem to want dialysis at this time. Discussed risks and patient is understanding. asked for more time to think about dialysis / hospice Incidental 2.3 cm right thyroid lobe nodule first seen on carotid u/s Thyroid u/s (05/15): 2.3 cm right thyroid lobe nodule with calcifications and mild cystic degeneration f/u for outpatient ultrasound guided FNA thyroid studies ok A-fib, chronic; on anticoagulation. Continue amiodarone, metoprolol and Eliquis as appropriate Hypertension. Continue home medications and hydralazine as needed. Hyperlipidemia. Continue statin Anemia of chronic disease. H&H stable. transfuse if hgb < 7 Osteoarthritis. PRN pain medication Hypokalemia. Replete as needed. VTE: home eliquis held today for possible dialysis cath per ne phro Code: Full Dispo: possible dialysis vs hospice 05/15 - Discussed code status with patient/family given patients worsening heart failure. Remain full code for now 05/16 - Discussed further plan of care with patient/family. Patient does not seem to want dialysis at this time. Discussed risks and patient is understanding. asked for more time to think about dialysis / hospice
[2023-05-16] MEDS: ENSURE MAX PROTEIN 330 ML LIQUID PO SCH ×2 (09:00→20:20)
[2023-05-16] MEDS: ASPIRIN 81 MG CHEWABLE TABLET PO SCH (09:00)
[2023-05-16] MEDS: JEVITY 1.5 CAL LIQUID 1,000 ML BOT FT SCH ×4 (09:00→20:20)
[2023-05-16 09:06] LABS: Hematocrit 47.8 % (36.0-45.0); MCV 104.3 fL (80-100); MPV 10.9 fL (7.6-11.3); Platelets 126 thou/uL (152-406); RBC Red Blood Cell Count 4.58 M/uL (3.86-4.86)
--- NOTE | 2023-05-16 10:28 | P.PN ---
Subjective Date of Service: 05/16/23 Chief Complaint: BLE edema, SOB Subjective: Other (she reports having some shortness of breath. She states to having some leg edema.) Physical Examination - Vital Signs Temperature: 96.8 F Blood Pressure: 120/57 Pulse: 58 Respirations: 16 Pulse Ox (%): 93 - Physical Exam General: Other (chronically ill-appearing) HEENT: Atraumatic, Normocephalic Neck: Supple, JVD not distended Respiratory: Other (symmetric chest expansion) Cardiovascular: No rubs, No murmurs Gastrointestinal: Soft and benign, No rebound, No guarding Musculoskeletal: No clubbing, Swelling Integumentary: No warmth Neurological: Normal speech, Normal tone Urinary: Other (no bladder distention) External genitalia: Deferred Rectal: Deferred Assessment And Plan - Plan # CARMELITA 2/2 CRS1 Oliguric, SCr increased to 3.2 Baseline serum creatinine 0.7-1.1 as of January 2022 Resume lasix at 80 mg IV q6h x 6 doses # Acute hypoxic respi failure 2/2 acute on chronic systolic HF, severe pulmo Htn Hx of covid pna TTE on 05/13 showed low LVEF 20-25%, and severe pulmonary hypertension with RVSP more than 60 mmHg BNP super elevated, recheck tomorrow High dose lasix IV as above +Relative hypotension. If no improvement in diuresis by tomorrow AM, recommend to add inotrope therapy via Milrinone gtt. # Hyperkalemia Lasix as above # Acute CVA, generalized weakness PT/OT # Htn Cont current med regimen # Anemia Monitor CBC # Hx of DVT S/p IVC filter # Chronic afib Amiodarone, metoprolol and Eliquis Physician Review: Patient Assessed, Agree with Above Assessment and Plan
[2023-05-16 10:33] LABS: Albumin 2.9 g/dL (3.4-5.0); Phosphorus 3.8 mg/dL (2.5-4.9); Uric Acid 10.9 mg/dL (2.6-6.0)
[2023-05-16 10:41] LABS: Potassium 5.2 mEq/L (3.5-5.1)
[2023-05-16] MEDS: CALCITROL 0.25 MCG CAP PO SCH (10:59)
[2023-05-16 11:00] LABS: Rheumatoid Factor NEG (NEG)
[2023-05-16] MEDS: FUROSEMIDE 40 MG/4 ML VIAL IV SCH ×2 (16:04→21:02)
[2023-05-16] MEDS: ATORVASTATIN 40 MG TAB PO SCH (20:19)
[2023-05-17] MEDS: FUROSEMIDE 40 MG/4 ML VIAL IV SCH ×2 (04:35→09:30)
[2023-05-17] MEDS: METOPROLOL TAR 50 MG TAB PO SCH ×2 (06:04→17:29)
--- NOTE | 2023-05-17 06:58 | P.PN ---
Date of Service: 05/17/23 Subjective: family/patient do not want dialysis at this time UOP via onofre improving - ~90mL emptied this morning per report ROS: 10 point ROS as noted above, otherwise negative Physical Exam: GEN: Alert, appears fatigued, apathetic, generalized weakness, PEG tube in place, Onofre in place HEENT: Normal conjunctiva, sclera anicteric CV: Regular rate and rhythm, 1+ BLE edema Pulm: mild labored respirations at rest, diminished at bases b/l ABD: Soft, nontender, nondistended Neuro: Normal speech, L eye unable to move past midline medially, with decreased vision by confrontation on right hemisphere of left eye, mild peripheral decreased vision of right hemisphere of right eye PEG tube in place Onofre in place vitals reviewed Problem List: acute hypoxic respiratory failure secondary to Acute on chronic systolic CHF exacerbation. Generalized Weakness L eye horizontal palsy acute CVA CARMELITA on CKD 3B. Incidental 2.3 right thyroid lobe nodule A-fib, chronic; on anticoagulation Hypertension Hyperlipidemia Anemia of chronic disease Osteoarthritis Hypokalemia h/o DVT s/p IVC filter Acute on chronic systolic CHF exacerbation CXR (05/14): Moderate bilateral pulmonary opacities without significant change. +possible small-moderate pleural effusion Patient reports missing a few doses of lasix this past week trend troponins - elevated x4. Monitor on telemetry Echo (January 2022): EF: 35-40% Echo (05/13): EF: 22%, Severe global hypokinesis, left atrial enlargement, moderate aortic insufficency, mild MR, severe TR, Severe pulmonary hypertension Cardiology consulted cont Lasix - restarted 05/17 BNP (05/17): [id number] edema improved Generalized Weakness L eye horizontal palsy acute CVA Family reports patient has been feeling weak with poor balance recently; +new vision troubles - L eye palsy / vision loss CT head (05/12): negative for acute findings MRI brain (05/13): 4mm area of abnormal signal deep white matter left parietal l obe could indicate acute infarction or artifact. Images significantly degraded by patient motion artifact. Carotid u/s (05/14): mild stenosis, +2.3 cm right thyroid nodule exam somewhat limited by patient participation / following instruction due to be tired; but appeared to be unilateral L medial rectus palsy Neuro consulted PT consulted PEG in place, has not been used in >1 yr, confirmed placement and started tube feeds - patient/family agreeable restart tube feeds 05/17 CARMELITA on CKD 3B Nephrology consulted worsening renal function cont lasix 05/15- inserted onofre for accurate i/o's: ~1L emptied 05/17 05/16 - Discussed further plan of care with patient/family. Patient does not seem to want dialysis at this time. Discussed risks and patient is understanding. 05/17 - Does not want dialysis - needs more time to think about hospice Incidental 2.3 cm right thyroid lobe nodule first seen on carotid u/s Thyroid u/s (05/15): 2.3 cm right thyroid lobe nodule with calcifications and mild cystic degeneration f/u for outpatient ultrasound guided FNA thyroid studies ok A-fib, chronic; on anticoagulation. Continue amiodarone, metoprolol and Eliquis as appropriate Hypertension. Continue home medications and hydralazine as needed. Hyperlipidemia. Continue statin Anemia of chronic disease. H&H stable. transfuse if hgb < 7 Osteoarthritis. PRN pain medication Hypokalemia. Replete as needed. VTE: Restart home eliquis Code: Full Dispo: ?hospice vs home 05/15 - Discussed code status with patient/family given patients worsening heart failure. Remain full code for now 05/16 - Discussed further plan of care with patient/family. Patient does not seem to want dialysis at this time. Discussed risks and patient is understanding. 05/17 - Does not want dialysis - needs more time to think about hospice
[2023-05-17 07:24] LABS: Albumin 2.6 g/dL (3.4-5.0); Phosphorus 3.6 mg/dL (2.5-4.9)
[2023-05-17 07:25] LABS: Potassium 4.2 mEq/L (3.5-5.1)
[2023-05-17] MEDS: ENSURE MAX PROTEIN 330 ML LIQUID PO SCH ×2 (09:00→21:00)
[2023-05-17] MEDS: JEVITY 1.5 CAL LIQUID 1,000 ML BOT FT SCH ×4 (09:00→21:00)
[2023-05-17] MEDS: ASPIRIN 81 MG CHEWABLE TABLET PO SCH (09:30)
[2023-05-17] MEDS: APIXABAN 5 MG TABLET PO SCH ×2 (09:31→21:39)
[2023-05-17] MEDS: FUROSEMIDE 100 MG in NA CHLORIDE 0.9% 90 ML IV SCH ×2 (13:23→22:39)
--- NOTE | 2023-05-17 15:18 | RAD REPORT ---
EXAM DESCRIPTION: RAD - Chest Single View - 05/17/2023 3:07 pm CLINICAL HISTORY: COPD Chest pain. COMPARISON: Chest Single View dated 05/14/2023; Chest Single View dated 05/12/2023; Chest Single View d ated 04/10/2023; Chest Single View dated 11/06/2022 FINDINGS: Portable technique limits examination quality. Bilateral pulmonary opacities are present, slightly greater on the left. The heart is moderately enla rged. Small bilateral evident. IMPRESSION: Mild to moderate CHF versus pneumonia.
--- NOTE | 2023-05-17 16:27 | CON ---
Date of Consultation: 05/17/2023 Reason For Consultation: Congestive heart failure. History Of Present Illness: A 72-year-old female very well known to me. She has systolic heart fail ure that is not ischemic. History of atrial fibrillation, dyslipidemia, hypertension, presented to [facility] emergency room with worsening shortness of breath, lower extremity edema, and orthopnea. Evaluate d by bedside and she was in a fluid overload condition. She was started on diuretics; however, she w as also found to have a kidney failure and she is not making very good urine with Lasix. Past Medical History: As outlined above in HPI. Medications: Refer reconciliation sheet for detailed list. Allergies: NO KNOWN DRUG ALLERGIES. Family History: No premature coronary artery disease or cancer. Social History: She does not smoke or drink. Does not use any drugs. Review of Systems: All systems reviewed and they were negative except as mentioned in the HPI. Physical Examination: Vital Signs: Reviewed. Head and Neck: Pupils are equal, reactive to light. Intact eye movements. Positive JVD. No cervic al lymphadenopathy. Neck is supple. Thyroid is not enlarged. Lungs: She has crackles bilaterally half the way up and slight increased respiratory effort. Heart: Regular rate and rhythm. No extra sounds. Abdomen: Soft, nontender. Bowel sounds positive. No organomegaly. No masses or hernia. No rigidi ty or rebound. Extremities: Edema bilaterally that is 3+. Neurologic: Alert, awake, oriented x3. No acute focal deficits appreciated. Lymph Nodes: No cervical or axillary lymphadenopathy. Investigations: BUN 25, creatinine 1.87. White blood count 6.6 and hemoglobin is 14.7. Assessment/recommendation: 1.Acute on chronic systolic heart failure exacerbation. 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 She was managed multiple times in the hospital in the past and she was started on chronic medical therapy for heart failure including Entresto and beta-saeed and she was doing well; however, her symptoms kept worsening. Obtain an echo to evaluate her ejecti on fraction now and started on IV diuretics. Consult Nephrology for her severe kidney failure. 2.Acute kidney failure, likely cardiorenal. Consult Nephrology and start diuretics as the patient i s severely fluid overloaded. 3.Hypertension. Blood pressure is acceptable. Continue current management. SR/MODL Voice ID: [id number] Report ID: [id number]
--- NOTE | 2023-05-17 16:42 | PN ---
Date of Progress Note: 05/15/2023 Subjective: Seen at bedside. The patient is getting worse. On echo, her ejection fraction is 20% t o 25% with severe pulmonary hypertension and the right ventricular systolic pressure is above 60. Sh lakesha feels generally weak, has shortness of breath. No orthopnea or lower extremity edema. No nausea, vomiting, or diarrhea. Review of Systems: All other systems reviewed, they were negative. Objective: Vital Signs: Reviewed. Head and Neck: Pupils are equal, reactive to light. Intact eye movements. Positive JVD. No cervic al lymphadenopathy. Neck: Supple. Thyroid is not enlarged. Lungs: Decreased breathing sounds with crackles bilaterally. No accessory muscle use. Heart: Irregular. No extra sounds. Abdomen: Soft, nontender. Bowel sounds positive. No organomegaly. No masses or hernia. No rigidi ty or rebound. Extremities: 3+ edema bilaterally. No clubbing, cyanosis. Intact pulses. Skin: No rash. Neurologic: Alert, awake. No acute focal deficits appreciated. Investigations: BUN 37, creatinine 2.78. Assessment/recommendation: 1.Acute on chronic systolic heart failure exacerbation. Significant worsening of her heart function despite that she was on Entresto and beta saeed, which makes her prognosis very poor. I explained this in detail to the family and at this point we will continue to attempt to diurese and monitor ur ine output and BUN, creatinine, and electrolytes. 2.Acute renal failure due to significant congestive heart failure and fluid overload and cardiorenal syndrome, hoping that her kidney function will improve if she starts diuresing. Attempt to use larg e dose of Lasix to filtrate that Lasix into the kidneys and if she does not respond to Lasix alone, t hen metolazone is to be added to augment diuresis. Overall condition is very poor and prognosis is poor. SR/MODL Voice ID: [id number] Report ID: [id number]
--- NOTE | 2023-05-17 17:12 | PN ---
Date of Progress Note: 05/17/2023 Subjective: Patient was admitted with cardiorenal syndrome, acute kidney injury. Patient was starte d on Solorio with diuresis. Kidney function continued to decline. Physical Examination: Vital Signs: When I saw the patient, blood pressure 129/67, pulse of 62, afebrile. Patient had impr madeleine urine output to 900. Chest: Crackles, bilateral. Heart: S1, S2. Systolic murmur. Abdomen: Soft, nontender. Extremity: +1 edema. Neuro: Alert. No focality. Laboratory Data: Hemoglobin 15.2, sodium 147, potassium 4.2, bicarb 29, BUN 67, creatinine 3.2, GFR of 14. BNP 139,000. PTH 321. Current Medications: The patient on: 1.Aspirin. 2.Eliquis. 3.Atorvastatin. 4.Metoprolol 100 b.i.d. 5.Jevity. 6.Lasix 40 q.i.d. 7.Tramadol. 8.Calcitriol. Assessment And Plan: 1.Acute kidney injury secondary to cardiorenal, nonoliguric, still on the overvolume side. I am goi ng to go ahead and change the Lasix to Lasix drip and I am going to continue to monitor the patient c losely. Discussed with Cardiology regarding possibility of inotropic of milrinone if possible and we will follow up. 2.Hypertension. We will utilize blood pressure for more diuresis. Decrease metoprolol to [address] the patient on Lasix drip and we will follow up. 3.Congestive heart failure with exacerbation as above. Keep holding Entresto. 4.Hyponatremia, dilutional secondary to renal failure, cardiac failure, corrected, resolved. 5.Hyperkalemia, resolved. 6.Secondary hyperparathyroidism. Continue calcitriol. Time spent examining the patient [id number], reviewing data, lab and radiology, placing order, disc ussing the case with the patient and family member by bedside, discussing the case with the [facility] and nursing staff more than 35 minutes. TELLO Voice ID: [id number] Report ID: [id number]
--- NOTE | 2023-05-17 17:27 | PN ---
Date of Progress Note: 05/16/2023 Subjective: Seen at bedside. The patient's kidney continues to worsen and not responding. Diuresis is not doing very well, becoming more lethargic. Review of Systems: No chest pain. Has shortness of breath and orthopnea, lower extremity edema. No nausea, vomiting, o r diarrhea. All other systems reviewed, they were negative. Objective: Vital Signs: Reviewed. Head and Neck: Pupils are equal, reactive to light. Intact eye movements. Some positive JVD. No c ervical lymphadenopathy. Neck: Supple. Thyroid is not enlarged. Lungs: Clear to auscultation bilaterally with decreased breathing sounds. Heart: Regular rate and rhythm. No extra sounds. Abdomen: Soft, nontender. Bowel sounds positive. No organomegaly. No masses or hernia. No rigidi ty or rebound. Extremities: Edema bilaterally. No clubbing, cyanosis. Intact pulses. Skin: No rashes. Neurologic: Alert, awake. No acute focal deficits appreciated. Lymph nodes: No cervical or axillary lymphadenopathy. Investigations: Labs were reviewed. Assessment/recommendations: 1.Acute on chronic systolic heart failure exacerbation. Very poor ejection fraction despite the mellissa delines-directed medical therapy, which makes the prognosis very poor. I had a long discussion with the family and the family are leaning towards hospice care, which I believe it is reasonable at this point. Advanced heart failure therapy can be attempted with IV inotropic agents; however, I do not b elieve that she will have a good quality of life with that and I believe hospice is a reasonable option for her. 2.Acute renal failure, getting worse and Nephrology is on board. SR/MODL Voice ID: [id number] Report ID: [id number]
[2023-05-17 18:54] LABS: Specific Gravity 1.008 (1.005-1.030); Urine Bacteria >50 /HPF (<20); Urine Bilirubin NEGATIVE (Negative); Urine Blood 3+ (OVER) (Negative); Urine Clarity Extremely Turbid (Clear); Urine Color Light-Orange (Yellow); Urine Glucose NEGATIVE (Negative); Urine Protein TRACE (Negative); Urine RBC 21-50 /HPF (None Seen); Urine Urobilinogen Normal (Normal); Urine WBC Clump Many /HPF (None Seen); Urine pH 5.5 (5.0-7.0)
[2023-05-17] MEDS: ATORVASTATIN 40 MG TAB PO SCH (21:38)
[2023-05-18] MEDS: METOPROLOL TAR 50 MG TAB PO SCH ×2 (05:33→18:20)
--- NOTE | 2023-05-18 06:40 | P.PN ---
Date of Service: 05/18/23 Subjective: Doing okay, feels like she has a little more energy today UOP improving ~4L UOP via onofre in last ~24hrs no acute events overnight ROS: 10 point ROS as noted above, otherwise negative Physical Exam: GEN: Alert, appears fatigued, generalized weakness, PEG tube in place, Onofre in place HEENT: Normal conjunctiva, sclera anicteric CV: Regular rate and rhythm, trace to 1+ BLE edema Pulm: mild labored respirations on 1L NC at rest, diminished at bases b/l ABD: Soft, nontender, nondistended Neuro: Normal speech, L eye unable to move past midline medially, with decreased vision by confrontation on right hemisphere of left eye PEG tube in place Onofre in place - yellow urine vitals reviewed Problem List: acute hypoxic respiratory failure secondary to Acute on chronic systolic CHF exacerbation. Generalized Weakness L eye horizontal palsy acute CVA CARMELITA on CKD 3B. Bacteriuria Incidental 2.3 right thyroid lobe nodule A-fib, chronic; on anticoagulation Hypertension Hyperlipidemia Anemia of chronic disease Osteoarthritis Hypokalemia h/o DVT s/p IVC filter Acute on chronic systolic CHF exacerbation CXR (05/14): Moderate bilateral pulmonary opacities without significant change. +possible small-moderate pleural effusion Patient reports missing a few doses of lasix this past week trend troponins - elevated x4. Monitor on telemetry Echo (January 2022): EF: 35-40% Echo (05/13): EF: 22%, Severe global hypokinesis, left atrial enlargement, moderate aortic insufficency, mild MR, severe TR, Severe pulmonary hypertension Cardiology consulted cont Lasix drip - (started 05/17) BNP 152653 -> 49911 (05/18) edema improving diuresing better now Generalized Weakness L eye horizontal palsy acute CVA Family reports patient has been feeling weak with poor balance recently; +new vision troubles - L eye palsy / vision loss CT head (05/12): negative for acute findings MRI brain (05/13): 4mm area of abnormal signal deep white matter left parietal lobe could indicate acute infarction or artifact. Images significantly degraded by patient motion artifact. Carotid u/s (05/14): mild stenosis, +2.3 cm right thyroid nodule exam somewhat limited by patient participation / following instruction due to be tired; but appeared to be unilateral L medial rectus palsy Neuro consulted PT consulted PEG in place, has not been used in >1 yr, confirmed placement and started tube feeds - patient/family agreeable cont tube feeds (restarted 05/17) CARMELITA on CKD 3B Nephrology consulted IV lasix switched to Lasix drip (05/17), continue drip 05/15- inserted onofre for accurate i/o's: ~4L emptied (05/18) 05/16 - Discussed further plan of care with patient/family. Patient does not seem to want dialysis at this time. Discussed risks and patient is understanding. 05/17 - Does not want dialysis - needs more time to think about hospice if renal function doesn't improve Cr improved 05/18 (3.25 -> 2.91) Bacteriuria UA: +LE, +RBC 20-50, +WBC >50, Many WBC clumps, +Bacteriuria Urine culture pending denies UTI symptoms; afebrile, no leukocytosis Started on empiric Rocephin to cover for possible UTI (05/18-) Incidental 2.3 cm right thyroid lobe nodule first seen on carotid u/s Thyroid u/s (05/15): 2.3 cm right thyroid lobe nodule with calcifications and mild cystic degeneration f/u for outpatient ultrasound guided FNA thyroid studies ok Hypertension Continue home medications and hydralazine as needed. Metoprolol decreased 05/17 A-fib, chronic; on anticoagulation. Continue amiodarone, metoprolol and Eliquis as appropriate Hyperlipidemia. Continue statin Anemia of chronic disease. H&H stable. transfuse if hgb < 7 Osteoarthritis. PRN pain medication Hypokalemia. Replete as needed. VTE: home eliquis Code: Full Dispo: ?hospice vs home renal function improving
[2023-05-18 07:07] LABS: Absolute Lymphocytes (CBC) 0.8 K/uL (0.7-4.9); Hematocrit 39.2 % (36.0-45.0); Lymphocytes % 17.2 % (15.3-44.8); MCV 103.2 fL (80-100); MPV 10.3 fL (7.6-11.3); Platelets 123 thou/uL (152-406)
[2023-05-18 07:27] LABS: Albumin 2.4 g/dL (3.4-5.0); Phosphorus 2.8 mg/dL (2.5-4.9); Potassium 3.5 mEq/L (3.5-5.1)
[2023-05-18] MEDS: APIXABAN 5 MG TABLET PO SCH ×2 (08:28→20:54)
[2023-05-18] MEDS: FUROSEMIDE 100 MG in NA CHLORIDE 0.9% 90 ML IV SCH ×2 (08:28→18:20)
[2023-05-18] MEDS: ASPIRIN 81 MG CHEWABLE TABLET PO SCH (08:28)
[2023-05-18] MEDS: CEFTRIAXONE 1,000 MG in NA CHLORIDE 0.9% 50 ML IVPB SCH (08:30)
[2023-05-18] MEDS: JEVITY 1.5 CAL LIQUID 1,000 ML BOT FT SCH ×4 (08:30→20:54)
[2023-05-18] MEDS: ENSURE MAX PROTEIN 330 ML LIQUID PO SCH ×2 (08:30→20:54)
--- NOTE | 2023-05-18 11:39 | PN ---
Date of Progress Note: 05/18/2023 Subjective: The patient was admitted with acute kidney injury secondary to cardiorenal. The patient was started on diuresis. The patient was placed on Lasix drip yesterday, tolerated well. The patient had very good urine output. Physical Examination: Vital Signs: Blood pressure 118/61, pulse of 65, afebrile. The patient had good urine output of 4100, negative of 2 L. Chest: Crackles bilateral. Heart: S1, S2. Systolic murmur. Abdomen: Soft, nontender. Extremities: +1 edema. Neuro: Alert. No focality. No tremor. Laboratory Data: Hemoglobin 12.5. Sodium 146, potassium 3.5, bicarb 33, BUN 70, creatinine down to 2.9, GFR of 16. Calcium 8.3, phosphorus 2.8, BNP down to 72,000. Albumin 2.4. PTH 321. Current Medications: Include; 1. Lasix drip. 2. Ceftriaxone. 3. Aspirin. 4. Eliquis 5 b.i.d. 5. Atorvastatin. 6. Metoprolol. 7. Tube feeding. 8. Calcitriol. Assessment And Plan: 1. Acute kidney injury secondary to cardiorenal. No uremia. No hyperkalemia. Nonoliguric. I am going to continue on the Lasix drip. We will monitor the patient. 2. Hypertension. Continue to utilize blood pressure for more diuresis. Continue Lasix drip. We just decreased the metoprolol yesterday. We will follow up. 3. Congestive heart failure with exacerbation. 4. Advanced congestive heart failure. We will optimize fluid status. We will monitor. We will follow up with Cardiology. 5. Hypokalemia, resolved. 6. Hyponatremia dilutional, resolved, currently hyper. 7. Secondary hyperparathyroidism. Continue calcitriol. Time spent examining the patient [id number], reviewing data, lab and radiology, placing order, discussing the case with the merchandise flow team leader including hospitalist and nursing staff more than 35 minutes. TELLO Voice ID: [id number] Report ID: [id number] EDDIE
[2023-05-18] MEDS: CALCITROL 0.25 MCG CAP PO SCH (12:19)
[2023-05-18] MEDS ORDERED: POTASSIUM 25 MEQ EFFERV TAB PO ONE (19:54)
[2023-05-18] MEDS: ATORVASTATIN 40 MG TAB PO SCH (20:53)
[2023-05-19] MEDS: FUROSEMIDE 100 MG in NA CHLORIDE 0.9% 90 ML IV SCH ×2 (05:36→16:11)
[2023-05-19] MEDS: METOPROLOL TAR 50 MG TAB PO SCH ×2 (06:00→17:49)
--- NOTE | 2023-05-19 07:11 | P.PN ---
Date of Service: 05/19/23 Subjective: Feeling a little better today, appetite and strength improving no new / worsening problems afebrile ROS: 10 point ROS as noted above, otherwise negative Physical Exam: GEN: Alert, appears fatigued, generalized weakness, PEG tube in place, Onofre in place HEENT: Normal conjunctiva, sclera anicteric CV: Regular rate and rhythm, trace to 1+ BLE edema Pulm: mild labored respirations on 1L NC at rest, diminished at bases b/l ABD: Soft, nontender, nondistended Neuro: Normal speech, L eye unable to move past midline medially PEG tube in place Onofre in place - yellow urine vitals reviewed Problem List: acute hypoxic respiratory failure secondary to Acute on chronic systolic CHF exacerbation. Generalized Weakness L eye horizontal palsy acute CVA CARMELITA on CKD 3B. Bacteriuria Incidental 2.3 right thyroid lobe nodule A-fib, chronic; on anticoagulation Hypertension Hyperlipidemia Anemia of chronic disease Osteoarthritis Hypokalemia h/o DVT s/p IVC filter Acute on chronic systolic CHF exacerbation CXR (05/14): Moderate bilateral pulmonary opacities without significant change. +possible small-moderate pleural effusion Patient reports missing a few doses of lasix this past week trend troponins - elevated x4. Monitor on telemetry Echo (January 2022): EF: 35-40% Echo (05/13): EF: 22%, Severe global hypokinesis, left atrial enlargement, moderate aortic insufficency, mild MR, severe TR, Severe pulmonary hypertension Cardiology consulted cont Lasix drip - (started 05/17) BNP 396412 -> 62515 (05/18) edema improving diuresing better now Generalized Weakness L eye horizontal palsy acute CVA Family reports patient has been feeling weak with poor balance recently; +new vision troubles - L eye palsy / vision loss CT head (05/12): negative for acute findings MRI brain (05/13): 4mm area of abnormal signal deep white matter left parietal lobe could indicate acute infarction or artifact. Images significantly degraded by patient motion artifact. Carotid u/s (05/14): mild stenosis, +2.3 cm right thyroid nodule exam somewhat limited by patient participation / following instruction due to be tired; but appeared to be unilateral L medial rectus palsy Neuro consulted PT consulted PEG in place, has not been used in >1 yr, confirmed placement and started tube feeds - patient/family agreeable cont tube feeds (restarted 05/17) CARMELITA on CKD 3B Nephrology consulted IV lasix switched to Lasix drip (05/17), continue drip 05/15- inserted onofre for accurate i/o's: ~4L emptied (05/18) 05/16 - Discussed further plan of care with patient/family. Patient does not seem to want dialysis at this time. Discussed risks and patient is understanding. 05/17 - Does not want dialysis - needs more time to think about hospice if renal function doesn't improve renal function improving Bacteriuria UA: +LE, +RBC 20-50, +WBC >50, Many WBC clumps, +Bacteriuria Urine culture: 4+ GNR, 2+ non-beta hemolytic strep denies UTI symptoms; afebrile, no leukocytosis cont empiric Rocephin to cover for possible UTI (05/18-) Incidental 2.3 cm right thyroid lobe nodule first seen on carotid u/s Thyroid u/s (05/15): 2.3 cm right thyroid lobe nodule with calcifications and mild cystic degeneration f/u for outpatient ultrasound guided FNA thyroid studies ok Hypertension Continue home medications and hydralazine as needed. Metoprolol decreased 05/17 A-fib, chronic; on anticoagulation. Continue amiodarone, metoprolol and Eliquis as appropriate Hyperlipidemia. Continue statin Anemia of chronic disease. H&H stable. transfuse if hgb < 7 Osteoarthritis. PRN pain medication Hypokalemia. Replete as needed. VTE: home eliquis Code: Full Dispo: ?hospice vs home renal function improving
[2023-05-19 08:04] LABS: Albumin 2.4 g/dL (3.4-5.0); Phosphorus 3.1 mg/dL (2.5-4.9); Potassium 3.9 mEq/L (3.5-5.1)
[2023-05-19] MEDS: ENSURE MAX PROTEIN 330 ML LIQUID PO SCH ×2 (09:00→20:58)
[2023-05-19] MEDS: ASPIRIN 81 MG CHEWABLE TABLET PO SCH (09:44)
[2023-05-19] MEDS: APIXABAN 5 MG TABLET PO SCH ×2 (09:44→20:58)
[2023-05-19] MEDS: JEVITY 1.5 CAL LIQUID 1,000 ML BOT FT SCH ×4 (09:46→20:59)
[2023-05-19] MEDS: CEFTRIAXONE 1,000 MG in NA CHLORIDE 0.9% 50 ML IVPB SCH (09:48)
[2023-05-19] MEDS: ATORVASTATIN 40 MG TAB PO SCH (20:58)
[2023-05-20] MEDS: FUROSEMIDE 100 MG in NA CHLORIDE 0.9% 90 ML IV SCH ×3 (01:00→17:44)
--- NOTE | 2023-05-20 02:51 | PN ---
Date of Progress Note: 05/19/2023 Subjective: The patient was admitted to the hospital because of acute kidney injury secondary to car diorenal syndrome. Patient was started on Lasix drip. She tolerated treatment. She is doing better . Blood pressure remained stable. Review of Systems: Denies chest pain, palpitation. Physical Examination: Lungs: Few rhonchi. Heart: S1, S2. 2/6 systolic murmur. Abdomen: Soft, nontender. Extremities: 1+ edema. Laboratory Data: Blood work: Hemoglobin 12.6, WBC 4.9, platelet count 123,000. Sodium 140, potassi um 3.9, chloride 100, carbon dioxide total 37, BUN 67, creatinine 2.62, calcium 8.2, albumin 2.4. Impression And Plan: 1.Acute kidney injury secondary to cardiorenal syndrome. There is high BUN creatinine ratio, which reflects diuretic treatment as well as cardiorenal syndrome. Monitor electrolytes closely. Avoid no nsteroidal anti-inflammatory medication. 2.Congestive heart failure. Metoprolol dose was decreased to 50 twice a day due to hypotension. Th e patient will continue diuretics. 3.Congestive heart failure with exacerbation. Entresto on hold due to acute kidney injury. 4.Hyponatremia, dilutional secondary to cardiorenal syndrome and kidney failure. Monitor electrolyt es closely and continue Lasix as needed. 5.Hyperkalemia, resolved. Avoid high potassium foods and monitor magnesium, phosphorus, and potassi um. 6.Secondary hyperparathyroidism. Patient is on calcitriol. Continue current treatment. JAYLEEN/FITZ Voice ID: [id number] Report ID: [id number]
[2023-05-20 03:40] LABS: Hematocrit 43.4 % (36.0-45.0); MCV 105.6 fL (80-100); MPV 10.2 fL (7.6-11.3); Platelets 130 thou/uL (152-406); RBC Red Blood Cell Count 4.11 M/uL (3.86-4.86)
[2023-05-20 03:50] LABS: Albumin 2.5 g/dL (3.4-5.0); Phosphorus 3.7 mg/dL (2.5-4.9)
[2023-05-20] MEDS: METOPROLOL TAR 50 MG TAB PO SCH ×2 (06:00→17:46)
[2023-05-20] MEDS: ASPIRIN 81 MG CHEWABLE TABLET PO SCH (08:30)
[2023-05-20] MEDS: CEFTRIAXONE 1,000 MG in NA CHLORIDE 0.9% 50 ML IVPB SCH (08:30)
[2023-05-20] MEDS: APIXABAN 5 MG TABLET PO SCH ×2 (08:30→20:31)
[2023-05-20] MEDS: ENSURE MAX PROTEIN 330 ML LIQUID PO SCH ×2 (08:30→20:31)
[2023-05-20] MEDS: JEVITY 1.5 CAL LIQUID 1,000 ML BOT FT SCH (08:31)
[2023-05-20] MEDS ORDERED: JEVITY 1.5 CAL LIQUID 1,000 ML BOT FT PRN (10:04)
[2023-05-20] MEDS: CALCITROL 0.25 MCG CAP PO SCH (11:17)
--- NOTE | 2023-05-20 11:54 | PN ---
Date of Progress Note: 05/20/2023 Subjective: The patient was admitted with acute kidney injury secondary to cardiorenal, over volume. The patient was started on Lasix, switched to Lasix drip. The patient responding very well. Kidne y function started being improving. Physical Examination: Vital Signs: Blood pressure 94/56, pulse of 72, afebrile. The patient had very good urine output of 5200. The patient negative of 3.5 L. Weight fabian, the patient lost 4 pounds from admission. Chest: Crackles bilateral. Heart: S1, S2. Systolic murmur. Abdomen: Soft, nontender. Extremity: Plus edema. Neurologic: Alert. No focality. No tremor. Laboratory Data: Hemoglobin 14.3. Sodium 140, potassium 4, bicarb 36, BUN 73, creatinine down to 2. 5, GFR of 20, calcium 8.6, phosphorus 3.7, albumin 2.5, corrected calcium 9.8. Current Medications: The patient on include; 1.Aspirin. 2.Ceftriaxone. 3.Eliquis 5 b.i.d. 4.Hydralazine. 5.Metoprolol 50. 6.Lasix drip. Assessment And Plan: 1.Acute kidney injury secondary to cardiorenal syndrome, looked to me improving significantly. I am going to go ahead and get chest x-ray for better evaluation of her fluid status. The disproportion in BUN and creatinine, secondary to poor perfusion secondary to the cardiorenal syndrome. We will co ntinue on the diuresis. We will follow up. 2.Hypertension. Continue to utilize blood pressure for more diuresis. Keep holding the Entresto an d spironolactone for the time being. 3.Coronary artery disease, congestive heart failure, advanced. Follow up with Cardiology. Continue to optimize fluid status. 4.Hyperkalemia, resolved. 5.Secondary hyperparathyroidism. Continue calcitriol. MA/MODL Voice ID: [id number] Report ID: [id number]
--- NOTE | 2023-05-20 12:23 | RAD REPORT ---
EXAM DESCRIPTION: RAD - Chest Single View - 05/20/2023 12:16 pm CLINICAL HISTORY: COPD Chest pain. COMPARISON: Chest Single View dated 05/17/2023; Chest Single View dated 05/14/2023; Chest Single View da los 05/12/2023; Chest Single View dated 04/10/2023 FINDINGS: Portable technique limits examination quality. Bilateral pulmonary opacities are again noted, mildly improved since 05/17/2023. Small bilateral pleu ral effusions. The heart is mildly prominent size. No displaced fractures. IMPRESSION: Mild CHF pattern is noted, mildly improved since 05/17/2023.
[2023-05-20] MEDS ORDERED: FUROSEMIDE 100 MG in NA CHLORIDE 0.9% 90 ML IV SCH (16:30)
--- NOTE | 2023-05-20 19:01 | P.PN ---
Subjective Date of Service: 05/20/23 Chief Complaint: BLE edema, SOB Patient denies shortness of breath. She has been stable on room air. Physical Examination - Vital Signs Temperature: 97.3 F Blood Pressure: 102/61 Pulse: 86 Respirations: 16 Pulse Ox (%): 97 Assessment And Plan - Plan Physical Exam: GEN: Alert, NAD. HEENT: Normal conjunctiva, sclera anicteric CV: Regular rate and rhythm, trace to 1+ BLE edema Pulm: mild labored respirations on 1L NC at rest, diminished at bases b/l ABD: Soft, nontender, nondistended, PEG tube in place, Neuro: Normal speech, L eye unable to move past midline medially Genitourinary: Onofre catheter in place. vitals reviewed Problem List: acute hypoxic respiratory failure secondary to Acute on chronic systolic CHF exacerbation. Generalized Weakness L eye horizontal palsy acute CVA CARMELITA on CKD 3B. Bacteriuria Incidental 2.3 right thyroid lobe nodule A-fib, chronic; on anticoagulation Hypertension Hyperlipidemia Anemia of chronic disease Osteoarthritis Hypokalemia h/o DVT s/p IVC filter Acute on chronic systolic CHF exacerbation CXR (05/14): Moderate bilateral pulmonary opacities without significant change. +possible small-moderate pleural effusion Repeat chest x-ray shows some improvement. Patient reports noncompliance with her Lasix. trend troponins - elevated x4 but trended flat. This is likely secondary to demand ischemia. Echo (January 2022): EF: 35-40% Echo (05/13): EF: 22%, Severe global hypokinesis, left atrial enlargement, moderate aortic insufficency, mild MR, severe TR, Severe pulmonary hypertension Cardiology input appreciated Patient is Lasix drip - (started 05/17) BNP [id number] -> [id number] (05/18) edema improved Generalized Weakness L eye horizontal palsy acute CVA Family reports patient has been feeling weak with poor balance recently; +new vision troubles - L eye palsy / vision loss CT head (05/12): negative for acute findings MRI brain (05/13): 4mm area of abnormal signal deep white matter left parietal lobe could indicate acute infarction or artifact. Images significantly degraded by patient motion artifact. Carotid u/s (05/14): mild stenosis, +2.3 cm right thyroid nodule exam somewhat limited by patient participation / following instruction due to be tired; but appeared to be unilateral L medial rectus palsy Neuro consulted PT consulted PEG in place, has not been used in >1 yr, confirmed placement and started tube feeds - patient/family agreeable cont tube feeds (restarted 05/17) CARMELITA on CKD 3B Nephrology consulted IV lasix switched to Lasix drip (05/17), continue drip 05/15- inserted onofre for accurate i/o's: ~4L emptied (05/18) 05/16 - Discussed further plan of care with patient/family. Patient does not seem to want dialysis at this time. Discussed risks and patient is understanding. renal function improving Bacteriuria UA: +LE, +RBC 20-50, +WBC >50, Many WBC clumps, +Bacteriuria Urine culture: 4+ GNR, 2+ non-beta hemolytic strep denies UTI symptoms; afebrile, no leukocytosis cont empiric Rocephin to cover for possible UTI (05/18-) Incidental 2.3 cm right thyroid lobe nodule first seen on carotid u/s Thyroid u/s (05/15): 2.3 cm right thyroid lobe nodule with calcifications and mild cystic degeneration f/u for outpatient ultrasound guided FNA thyroid studies ok Hypertension Continue home medications and hydralazine as needed. Metoprolol decreased 05/17 A-fib, chronic; on anticoagulation. Continue amiodarone, metoprolol and Eliquis as appropriate Hyperlipidemia. Continue statin Anemia of chronic disease. H&H stable. transfuse if hgb < 7 Osteoarthritis. PRN pain medication Hypokalemia. Replete as needed. VTE: home eliquis Code: Full
[2023-05-20] MEDS: ATORVASTATIN 40 MG TAB PO SCH (20:31)
[2023-05-20 20:42] LABS: Hepatitis C Virus RNA (PCR)log <1.18 log IU/mL
[2023-05-21 03:37] LABS: Albumin 2.5 g/dL (3.4-5.0); Phosphorus 4.1 mg/dL (2.5-4.9); Potassium 3.7 mEq/L (3.5-5.1)
[2023-05-21] MEDS: METOPROLOL TAR 50 MG TAB PO SCH (04:47)
[2023-05-21] MEDS: FUROSEMIDE 100 MG in NA CHLORIDE 0.9% 90 ML IV SCH (04:52)
[2023-05-21] MEDS: APIXABAN 5 MG TABLET PO SCH ×2 (08:46→20:31)
[2023-05-21] MEDS: ASPIRIN 81 MG CHEWABLE TABLET PO SCH (08:46)
[2023-05-21] MEDS: CEFTRIAXONE 1,000 MG in NA CHLORIDE 0.9% 50 ML IVPB SCH (08:47)
[2023-05-21] MEDS: ENSURE MAX PROTEIN 330 ML LIQUID PO SCH ×2 (08:50→20:31)
[2023-05-21] MEDS ORDERED: POTASSIUM CL SA 10 MEQ TAB PO ONE (08:59)
--- NOTE | 2023-05-21 15:22 | P.PN ---
Subjective Date of Service: 05/21/23 Chief Complaint: BLE edema, SOB Patient denies shortness of breath. She has been stable on room air. Good urine output. Physical Examination - Vital Signs Temperature: 97.9 F Blood Pressure: 101/55 Pulse: 87 Respirations: 16 Pulse Ox (%): 97 Assessment And Plan - Plan Physical Exam: GEN: Alert, NAD. CV: Regular rate and rhythm, trace to 1+ BLE edema Pulm: Clear to auscultation bilaterally ABD: Soft, nontender, nondistended, PEG tube in place, Neuro: Normal speech, no focal motor deficit. Genitourinary: Solorio catheter in place. vitals reviewed Problem List: acute hypoxic respiratory failure secondary to Acute on chronic systolic CHF exacerbation. Generalized Weakness L eye horizontal palsy acute CVA CARMELITA on CKD 3B. Bacteriuria Incidental 2.3 right thyroid lobe nodule A-fib, chronic; on anticoagulation Hypertension Hyperlipidemia Anemia of chronic disease Osteoarthritis Hypokalemia h/o DVT s/p IVC filter Acute on chronic systolic CHF exacerbation CXR (05/14): Moderate bilateral pulmonary opacities without significant change. +possible small-moderate pleural effusion Repeat chest x-ray shows some improvement. Patient reports noncompliance with her Lasix. Troponin elevated but trended flat. This is likely secondary to demand ischemia. Echo (January 2022): EF: 35-40% Echo (05/13): EF: 22%, Severe global hypokinesis, left atrial enlargement, m oderate aortic insufficency, mild MR, severe TR, Severe pulmonary hypertension Cardiology seen patient Status post Lasix drip, transitioned to oral Lasix Anasarca has resolved. Generalized Weakness L eye horizontal palsy acute CVA Family reports patient has been feeling weak with poor balance recently; +new vision troubles - L eye palsy / vision loss CT head (05/12): negative for acute findings MRI brain (05/13): 4mm area of abnormal signal deep white matter left parietal lobe could indicate acute infarction or artifact. Images significantly degraded by patient motion artifact. Carotid u/s (05/14): mild stenosis, +2.3 cm right thyroid nodule Neuro consulted Currently receiving PT. Continue aspirin and lipitor. PEG in place. Continue tube feeding. CARMELIAT on CKD 3B Nephrology consulted IV lasix switched to Lasix drip (05/17), later transitioned to p.o. Lasix, 05/16 - Discussed further plan of care with patient/family. Patient does not seem to want dialysis at this time. Renal function has improved. Bacteriuria UA: +LE, +RBC 20-50, +WBC >50, Many WBC clumps, +Bacteriuria Urine culture: 4+ GNR, 2+ non-beta hemolytic strep cont empiric Rocephin to cover for possible UTI (05/18-) Patient to complete 5 days of treatment. Incidental 2.3 cm right thyroid lobe nodule first seen on carotid u/s Thyroid u/s (05/15): 2.3 cm right thyroid lobe nodule with calcifications and mild cystic degeneration f/u for outpatient ultrasound guided FNA thyroid studies within normal limit. Hypertension Continue home medications and hydralazine as needed. Continue metoprolol. A-fib, chronic; on anticoagulation. Continue amiodarone, metoprolol and Eliquis as appropriate Hyperlipidemia. Continue statin Anemia of chronic disease. H&H stable. transfuse if hgb < 7 Osteoarthritis. PRN pain medication Hypokalemia. Replete as needed. VTE: home dose eliquis Code: Full
--- NOTE | 2023-05-21 15:36 | PN ---
Date of Progress Note: 05/21/2023 Subjective: The patient was admitted to the hospital with acute kidney injury secondary to cardioren al with anasarca. The patient was started on Lasix drip, diuresing very well. Kidney function start ed being improving. Objective: Vital Signs: When I saw the patient; blood pressure 92/60, pulse of 87, afebrile. Chest: Clear to auscultation. Heart: S1, S2. Regular. Abdomen: Soft, nontender. Extremities: No edema. Neuro: Alert, no focality. Current Medications: The patient on include, 1.Aspirin. 2.Ceftriaxone. 3.Eliquis. 4.Atorvastatin. 5.Metoprolol. 6.Lasix drip. 7.Jevity. 8.KCl. 9.Calcitriol. Assessment And Plan: 1.Acute kidney injury secondary to cardiorenal syndrome. The patient is still on the over volume si de, but urine looked to me more concentrated. I am going to go ahead and get a new UA to evaluate if it is hematuria or a more concentrated urine. I am going to go ahead and discontinue the Lasix drip and start the patient on Lasix p.o. 80 mg t.i.d. We will follow up the patient. 2.Hypertension, currently blood pressure on the lower side. We will continue to utilize blood press ure for more diuresis and we will monitor the patient. I can decrease the metoprolol further to 25 m g if okay with the Cardiology. Keep holding Entresto. 3.Coronary artery disease with congestive heart failure, advanced. We will continue to optimize the fluid status. 4.Hyperkalemia, resolved. 5.Secondary hyperparathyroid, continue calcitriol. VIVIAN/FITZ Voice ID: [id number] Report ID: [id number]
[2023-05-21 15:37] LABS: Specific Gravity 1.012 (1.005-1.030); Urine Bacteria <20 /HPF (<20); Urine Bilirubin NEGATIVE (Negative); Urine Blood 3+ (OVER) (Negative); Urine Clarity Extremely Turbid (Clear); Urine Color Light-Yellow (Yellow); Urine Glucose NEGATIVE (Negative); Urine Mucus 1+ /HPF (None Seen); Urine Protein 1+ (Negative); Urine RBC >50 /HPF (None Seen); Urine Urobilinogen Normal (Normal); Urine pH 6.5 (5.0-7.0)
[2023-05-21] MEDS: FUROSEMIDE 40 MG TABLET PO SCH ×2 (15:42→20:31)
[2023-05-21 15:54] LABS: UR PROTEIN 39.3 mg/dL (<11.9); Urine Protein/Creatinine Ratio 0.15 ratio (<0.15)
[2023-05-21] MEDS: METOPROLOL TAR 25 MG TAB PO SCH (17:55)
[2023-05-21] MEDS: ATORVASTATIN 40 MG TAB PO SCH (20:31)
[2023-05-22 03:46] LABS: Albumin 2.4 g/dL (3.4-5.0); Phosphorus 3.7 mg/dL (2.5-4.9)
[2023-05-22] MEDS: METOPROLOL TAR 25 MG TAB PO SCH ×2 (04:18→17:38)
[2023-05-22] MEDS: APIXABAN 5 MG TABLET PO SCH ×2 (08:36→20:27)
[2023-05-22] MEDS: ASPIRIN 81 MG CHEWABLE TABLET PO SCH (08:36)
[2023-05-22] MEDS: FUROSEMIDE 40 MG TABLET PO SCH ×3 (08:36→20:27)
[2023-05-22] MEDS: ENSURE MAX PROTEIN 330 ML LIQUID PO SCH ×2 (08:37→20:27)
[2023-05-22] MEDS: CEFTRIAXONE 1,000 MG in NA CHLORIDE 0.9% 50 ML IVPB SCH (08:37)
--- NOTE | 2023-05-22 09:20 | P.DS ---
Admission Date: 05/12/23 Discharge Date: 05/22/23 Disposition: DC HOME/HOME HEALTH CARE Discharge Condition: FAIR Reason for Admission: BLE edema, SOB Vital Signs/Physical Exam: Temp Pulse Resp BP Pulse Ox 97.5 F 80 17 109/67 94 05/22/23 04:00 05/22/23 08:36 05/22/23 04:00 05/22/23 08:36 05/22/23 04:00 Laboratory Data at Discharge: WBC 5.80 thou/uL (4.3-10.9) 05/20/23 02:24 Hgb 14.3 g/dL (12.0-15.0) 05/20/23 02:24 Hct 43.4 % (36.0-45.0) 05/20/23 02:24 Plt Count 130 thou/uL (152-406) L 05/20/23 02:24 PT 10.5 SECONDS (9.2-12.8) 05/12/23 13:47 INR 0.88 05/12/23 13:47 Sodium 139 mEq/L (136-145) 05/22/23 02:12 Potassium 4.0 mEq/L (3.5-5.1) 05/22/23 02:12 BUN 77 mg/dL (7-18) H 05/22/23 02:12 Creatinine 2.19 mg/dL (0.55-1.02) H 05/22/23 02:12 Glucose 110 mg/dL (74-106) H 05/22/23 02:12 Uric Acid 11.0 mg/dL (2.6-6.0) H 05/21/23 02:06 Phosphorus 3.7 mg/dL (2.5-4.9) 05/22/23 02:12 Magnesium 2.2 mg/dL (1.6-2.4) 05/15/23 01:44 Triglycerides 108 mg/dL (<150) 05/14/23 01:48 Cholesterol 146 mg/dL (<200) 05/14/23 01:48 HDL Cholesterol 52 mg/dL (40-60) 05/14/23 01:48 Cholesterol/HDL Ratio 2.81 05/14/23 01:48 Home Medications: Apixaban [Eliquis *] 5 mg PO BID #60 tablet 11/08/22 Potassium Chloride [K-Dur] 10 meq PO DAILY #30 tab 11/08/22 Ensure Max Protein 330 ml PO BID #60 can 04/12/23 Metoprolol Tartrate [Lopressor*] 100 mg PO BID 6AM 6PM 05/12/23 Aspirin Chewable [Aspirin Chewable*] 81 mg PO DAILY #30 tab.chew 05/22/23 Atorvastatin Calcium [Lipitor] 40 mg PO BEDTIME #30 tab 05/22/23 Calcitrol [Rocaltrol*] 0.25 mcg PO Q48H #15 cap 05/22/23 Cefpodoxime Proxetil 200 mg PO BID 9 Days #36 tab 05/22/23 Furosemide [Lasix*] 80 mg PO TID #180 tab 05/22/23 New Medications: Aspirin Chewable [Aspirin Chewable*] 81 mg PO DAILY #30 tab.chew Cefpodoxime Proxetil 200 mg PO BID 9 Days #36 tab Furosemide [Lasix*] 80 mg PO TID #180 tab Atorvastatin Calcium [Lipitor] 40 mg PO BEDTIME #30 tab Calcitrol [Rocaltrol*] 0.25 mcg PO Q48H #15 cap Diet: AHA Activity: Fall precautions Followup: Kina Barajas DO [Primary Care Provider] - 1-2 Weeks Jitendra Chao MD [ACTIVE - CAN ADMIT] - (Within 2 weeks)
[2023-05-22] MEDS: CALCITROL 0.25 MCG CAP PO SCH (12:34)
--- NOTE | 2023-05-22 15:11 | P.PN ---
Subjective Date of Service: 05/22/23 Chief Complaint: BLE edema, SOB Patient denies shortness of breath. She has been stable on room air. No issues overnight. Physical Examination - Vital Signs Temperature: 97.9 F Blood Pressure: 82/58 Pulse: 63 Respirations: 16 Pulse Ox (%): 94 Assessment And Plan - Plan Physical Exam: GEN: Alert, NAD. CV: Regular rate and rhythm, no pedal edema. Pulm: Clear to auscultation bilaterally ABD: Soft, nontender, nondistended, PEG tube in place, Neuro: Normal speech, no focal motor deficit. Genitourinary: Solorio catheter in place. vitals reviewed Problem List: acute hypoxic respiratory failure secondary to Acute on chronic systolic CHF exacerbation. Generalized Weakness L eye horizontal palsy acute CVA CARMELITA on CKD 3B. Bacteriuria Incidental 2.3 right thyroid lobe nodule A-fib, chronic; on anticoagulation Hypertension Hyperlipidemia Anemia of chronic disease Osteoarthritis Hypokalemia h/o DVT s/p IVC filter Acute on chronic systolic CHF exacerbation CXR (05/14): Moderate bilateral pulmonary opacities without significant change. +possible small-moderate pleural effusion Repeat chest x-ray shows some improvement. Patient reports noncompliance with her Lasix. Troponin elevated but trended flat. This is likely secondary to demand ischemia. Echo (January 2022): EF: 35-40% Echo (05/13): EF: 22%, Severe global hypokinesis, left atrial enlargement, moderate aortic insufficency, mild MR, severe TR, Severe pulmonary hypertension Cardiology saw and evaluated patient. Status post Lasix drip, transitioned to oral Lasix. Renal function is stable on oral Lasix Anasarca has resolved. Generalized Weakness L eye horizontal palsy acute CVA Family reports patient has been feeling weak with poor balance recently; +new vision troubles - L eye palsy / vision loss CT head (05/12): negative for acute findings MRI brain (05/13): 4mm area of abnormal signal deep white matter left parietal lobe could indicate acute infarction or artifact. Images significantly degraded by patient motion artifact. Carotid u/s (05/14): mild stenosis, +2.3 cm right thyroid nodule Neuro consulted Currently receiving PT. Continue aspirin and lipitor. PEG in place. Diet as tolerated. CARMELITA on CKD 3B Nephrology consulted IV lasix switched to Lasix drip (05/17), later transitioned to p.o. Lasix, Renal function has improved and stable with diuresis. Bacteriuria UA: +LE, +RBC 20-50, +WBC >50, Many WBC clumps, +Bacteriuria Urine culture: 4+ GNR, 2+ non-beta hemolytic strep cont empiric Rocephin to cover for possible UTI (05/18-) Continue antibiotic. Incidental 2.3 cm right thyroid lobe nodule first seen on carotid u/s Thyroid u/s (05/15): 2.3 cm right thyroid lobe nodule with calcifications and mild cystic degeneration f/u for outpatient ultrasound guided FNA thyroid studies within normal limit. Hypertension Continue home medications and hydralazine as needed. Continue metoprolol. A-fib, chronic; on anticoagulation. Continue amiodarone, metoprolol and Eliquis as appropriate Hyperlipidemia. Continue statin Anemia of chronic disease. H&H stable. transfuse if hgb < 7 Osteoarthritis. PRN pain medication Hypokalemia. Replete as needed. Impaired mobility/generalized weakness Patient has has agreed to go to skilled rehab. Social service consulted to assist with arrangement for skilled rehab placement. VTE: home dose eliquis Code: Full
--- NOTE | 2023-05-22 19:21 | PN ---
Date of Progress Note: 05/22/2023 Subjective: The patient was admitted with acute kidney injury secondary to cardiorenal. Patient was started on Lasix drip, responding very well. Patient did not require any renal replacement therapy. We switched the patient to oral Lasix in the last 48 hours, tolerated well. Patient had good urine output. Kidney function continued to improve. Patient on room air. Objective: Vital Signs: Blood pressure of 82/58, pulse of 63, afebrile. Patient had a good urine o utput of 3 L, patient negative of 2 L. Chest: Clear to auscultation. Heart: S1, S2. Regular. Abdomen: Soft, nontender. Extremities: No edema. Neurologic: Alert, no focality. Laboratory Data: Hemoglobin 14.3, sodium 139, potassium 4, bicarb 33, BUN 77, creatinine 2.1, GFR 23 , calcium 8.3, phosphorus 3.7, albumin 2.4, corrected calcium is 9.5. Current Medications: The patient on, it includes: 1.Aspirin. 2.Ceftriaxone. 3.Atorvastatin 40. 4.Hydralazine. 5.Metoprolol 25 b.i.d. 6.Lasix 80 t.i.d. 7.Jevity. 8.Ensure. 9.KCl. Assessment And Plan: 1.Acute kidney injury secondary to cardiorenal, responding to current dose of Lasix. I am going to continue Lasix 80 mg t.i.d., and we will follow up. Patient cleared from the renal standpoint for di jesusrge planning, to follow up in the office in 2 weeks. 2.Hypertension, currently blood pressure on the lower side, marginal. Patient could not tolerate En tresto neither spironolactone even with the advanced congestive heart failure. We will continue to m onitor. Keep holding above medications. Continue current dose of Lasix. 3.Coronary artery disease with congestive heart failure. As above. 4.Hyperkalemia, resolved. 5.Secondary hyperparathyroidism. Continue calcitriol. VIVIAN/FITZ Voice ID: [id number] Report ID: [id number]
[2023-05-22] MEDS: ATORVASTATIN 40 MG TAB PO SCH (20:27)
[2023-05-23 02:55] LABS: Albumin 2.5 g/dL (3.4-5.0); Phosphorus 3.4 mg/dL (2.5-4.9); Potassium 3.6 mEq/L (3.5-5.1)
[2023-05-23] MEDS: METOPROLOL TAR 25 MG TAB PO SCH ×2 (04:42→17:11)
[2023-05-23] MEDS ORDERED: POTASSIUM CL SA 10 MEQ TAB PO ONE (09:00)
[2023-05-23] MEDS: ENSURE MAX PROTEIN 330 ML LIQUID PO SCH ×2 (09:00→20:13)
[2023-05-23] MEDS: ASPIRIN 81 MG CHEWABLE TABLET PO SCH (09:50)
[2023-05-23] MEDS: CEFTRIAXONE 1,000 MG in NA CHLORIDE 0.9% 50 ML IVPB SCH (09:50)
[2023-05-23] MEDS: FUROSEMIDE 40 MG TABLET PO SCH ×3 (09:50→20:13)
[2023-05-23] MEDS: APIXABAN 5 MG TABLET PO SCH ×2 (09:51→20:13)
--- NOTE | 2023-05-23 14:55 | P.PN ---
Subjective Date of Service: 05/23/23 Chief Complaint: BLE edema, SOB Subjective: No new changes Physical Examination - Vital Signs Temperature: 98.6 F Blood Pressure: 101/60 Pulse: 82 Respirations: 20 Pulse Ox (%): 94 - Physical Exam General: Other (chronically ill appearing) HEENT: Atraumatic, Normocephalic Neck: Supple Respiratory: Other (symmetric chest expansion) Cardiovascular: No rubs, No murmurs Gastrointestinal: Soft and benign, No guarding Musculoskeletal: No clubbing Integumentary: No warmth Neurological: Normal tone Urinary: Other (no bladder distention) External genitalia: Deferred Rectal: Deferred Assessment And Plan - Plan # CARMELITA 2/2 CRS1 SCr improved/plateaued at 2.2 Baseline serum creatinine 0.7-1.1 as of January 2022 Cont lasix 80 mg po TID # Acute hypoxic respi failure 2/2 acute on chronic systolic HF, severe pulmo Htn Hx of covid pna TTE on 05/13 showed low LVEF 20-25%, and severe pulmonary hypertension with RVSP more than 60 mmHg BNP super elevated, recheck tomorrow Lasix as above +Relative hypotension. If MAP decreases further, recommend to add inotrope therapy via Milrinone gtt. # Hyperkalemia Improved, lasix as above # Acute CVA, generalized weakness PT/OT # Htn Cont current med regimen # Anemia Monitor CBC # Hx of DVT S/p IVC filter # Chronic afib Amiodarone, metoprolol and Eliquis Physician Review: Patient Assessed, Agree with Above Assessment and Plan
--- NOTE | 2023-05-23 16:50 | P.PN ---
Subjective Date of Service: 05/23/23 Chief Complaint: BLE edema, SOB Patient denies shortness of breath. She has been stable on room air. No issues overnight. Physical Examination - Vital Signs Temperature: 98.6 F Blood Pressure: 101/60 Pulse: 82 Respirations: 20 Pulse Ox (%): 94 Assessment And Plan - Plan Physical Exam: GEN: Alert, NAD. CV: Regular rate and rhythm, no pedal edema. Pulm: Clear to auscultation bilaterally ABD: Soft, nontender, nondistended, PEG tube in place, Neuro: Normal speech, no focal motor deficit. Genitourinary: Solorio catheter in place. vitals reviewed Problem List: acute hypoxic respiratory failure secondary to Acute on chronic systolic CHF exacerbation. Generalized Weakness L eye horizontal palsy acute CVA CARMELITA on CKD 3B. Bacteriuria Incidental 2.3 right thyroid lobe nodule A-fib, chronic; on anticoagulation Hypertension Hyperlipidemia Anemia of chronic disease Osteoarthritis Hypokalemia h/o DVT s/p IVC filter Acute on chronic systolic CHF exacerbation CXR (05/14): Moderate bilateral pulmonary opacities without significant change. +possible small-moderate pleural effusion Repeat chest x-ray shows some improvement. Patient reports noncompliance with her Lasix. Troponin elevated but trended flat. This is likely secondary to demand ischemia. Echo (January 2022): EF: 35-40% Echo (05/13): EF: 22%, Severe global hypokinesis, left atrial enlargement, moderate aortic insufficency, mild MR, severe TR, Severe pulmonary hypertension Cardiology saw and evaluated patient. Status post Lasix drip, transitioned to oral Lasix. Renal function is stable on oral Lasix Anasarca has resolved. Generalized Weakness L eye horizontal palsy acute CVA Family reports patient has been feeling weak with poor balance recently; +new vision troubles - L eye palsy / vision loss CT head (05/12): negative for acute findings MRI brain (05/13): 4mm area of abnormal signal deep white matter left parietal lobe could indicate acute infarction or artifact. Images significantly degraded by patient motion artifact. Carotid u/s (05/14): mild stenosis, +2.3 cm right thyroid nodule Neuro consulted Currently receiving PT. Continue aspirin and lipitor. PEG in place. Diet as tolerated. CARMELITA on CKD 3B Nephrology consulted IV lasix switched to Lasix drip (05/17), later transitioned to p.o. Lasix, Renal function has improved and stable with diuresis. Bacteriuria UA: +LE, +RBC 20-50, +WBC >50, Many WBC clumps, +Bacteriuria Urine culture: 4+ GNR, 2+ non-beta hemolytic strep cont empiric Rocephin to cover for possible UTI (05/18-) Repeat urine culture shows gram-negative rods. Continue antibiotic. Incidental 2.3 cm right thyroid lobe nodule first seen on carotid u/s Thyroid u/s (05/15): 2.3 cm right thyroid lobe nodule with calcifications and mild cystic degeneration f/u for outpatient ultrasound guided FNA thyroid studies within normal limit. Hypertension Continue home medications and hydralazine as needed. Continue metoprolol. A-fib, chronic; on anticoagulation. Continue amiodarone, metoprolol and Eliquis as appropriate Hyperlipidemia. Continue statin Anemia of chronic disease. H&H stable. transfuse if hgb < 7 Osteoarthritis. PRN pain medication Hypokalemia. Replete as needed. Impaired mobility/generalized weakness Patient has has agreed to go to skilled rehab. Awaiting for insurance authorization for skilled rehab placement. VTE: home dose eliquis Code: Full
[2023-05-23] MEDS: ATORVASTATIN 40 MG TAB PO SCH (20:13)
[2023-05-24] MEDS: METOPROLOL TAR 25 MG TAB PO SCH ×2 (05:43→17:04)
[2023-05-24] MEDS: ENSURE MAX PROTEIN 330 ML LIQUID PO SCH ×2 (09:00→21:00)
[2023-05-24] MEDS: FUROSEMIDE 40 MG TABLET PO SCH ×3 (09:02→21:00)
[2023-05-24] MEDS: CEFTRIAXONE 1,000 MG in NA CHLORIDE 0.9% 50 ML IVPB SCH (09:02)
[2023-05-24] MEDS: ASPIRIN 81 MG CHEWABLE TABLET PO SCH (09:03)
[2023-05-24] MEDS: APIXABAN 5 MG TABLET PO SCH ×2 (09:03→21:16)
[2023-05-24] MEDS: CALCITROL 0.25 MCG CAP PO SCH (12:21)
--- NOTE | 2023-05-24 12:50 | P.PN ---
Subjective Date of Service: 05/24/23 Chief Complaint: BLE edema, SOB Patient denies shortness of breath. She denies any complain She has been stable on room air. Physical Examination - Vital Signs Temperature: 97.3 F Blood Pressure: 120/66 Pulse: 77 Respirations: 18 Pulse Ox (%): 97 Assessment And Plan - Plan Physical Exam: GEN: Alert, NAD. CV: Regular rate and rhythm, no pedal edema. Pulm: Clear to auscultation bilaterally ABD: Soft, nontender, nondistended, PEG tube in place, Neuro: Normal speech, no focal motor deficit. Genitourinary: Solorio catheter in place. vitals reviewed Problem List: acute hypoxic respiratory failure secondary to Acute on chronic systolic CHF exacerbation. Generalized Weakness L eye horizontal palsy acute CVA CARMELITA on CKD 3B. Bacteriuria Incidental 2.3 right thyroid lobe nodule A-fib, chronic; on anticoagulation Hypertension Hyperlipidemia Anemia of chronic disease Osteoarthritis Hypokalemia h/o DVT s/p IVC filter Acute on chronic systolic CHF exacerbation CXR (05/14): Moderate bilateral pulmonary opacities without significant change. +possible small-moderate pleural effusion Repeat chest x-ray shows some improvement. Patient reports noncompliance with her Lasix. Troponin elevated but trended flat. This is likely secondary to demand ischemia. Echo (January 2022): EF: 35-40% Echo (05/13): EF: 22%, Severe global hypokinesis, left atrial enlargement, m oderate aortic insufficency, mild MR, severe TR, Severe pulmonary hypertension Cardiology saw and evaluated patient. Status post Lasix drip, transitioned to oral Lasix. Renal function is stable on oral Lasix Anasarca has resolved. Generalized Weakness L eye horizontal palsy acute CVA Family reports patient has been feeling weak with poor balance recently; +new vision troubles - L eye palsy / vision loss CT head (05/12): negative for acute findings MRI brain (05/13): 4mm area of abnormal signal deep white matter left parietal lobe could indicate acute infarction or artifact. Images significantly degraded by patient motion artifact. Carotid u/s (05/14): mild stenosis, +2.3 cm right thyroid nodule Neuro consulted Currently receiving PT. Continue aspirin and lipitor. PEG in place. Diet as tolerated. CARMELITA on CKD 3B Nephrology consulted IV lasix switched to Lasix drip (05/17), later transitioned to p.o. Lasix, Renal function has improved and stable with diuresis. Bacteriuria UA: +LE, +RBC 20-50, +WBC >50, Many WBC clumps, +Bacteriuria Urine culture: Multiple organisms isolated including Pseudomonas. All organisms isolated also sensitive to Levaquin. cont empiric Rocephin to cover for possible UTI (05/18-) Change antibiotics to oral Levaquin. Incidental 2.3 cm right thyroid lobe nodule first seen on carotid u/s Thyroid u/s (05/15): 2.3 cm right thyroid lobe nodule with calcifications and mild cystic degeneration f/u for outpatient ultrasound guided FNA thyroid studies within normal limit. Hypertension Continue home medications and hydralazine as needed. Continue metoprolol. A-fib, chronic; on anticoagulation. Continue amiodarone, metoprolol and Eliquis as appropriate Hyperlipidemia. Continue statin Anemia of chronic disease. H&H stable. transfuse if hgb < 7 Osteoarthritis. PRN pain medication Hypokalemia. Replete as needed. Impaired mobility/generalized weakness Patient has has agreed to go to skilled rehab. Awaiting for insurance authorization for skilled rehab placement. VTE: home dose eliquis Code: Full
--- NOTE | 2023-05-24 15:53 | P.PN ---
Subjective Date of Service: 05/24/23 Chief Complaint: BLE edema, SOB Pt admitte with SOB and leg edema , ahd CARMELITA , Cr 2.2 increase to 3.2 and now at baseline today feels drowsy Cont lasix I/O Physical exam General: Awake, NAD , obese HEENT: Atraumatic, Normocephalic Neck: Supple, no elevated JVD Respiratory: CTAB Cardiovascular: No rubs, No murmurs Gastrointestinal: Soft and benign, Non-distended Musculoskeletal: No clubbing Extremities; edema # CARMELITA 2/2 CRS1 SCr improved/plateaued at 2.2 Baseline serum creatinine 0.7-1.1 as of January 2022 Cont lasix 80 mg po TID # Acute hypoxic respi failure 2/2 acute on chronic systolic HF, severe pulmo Htn Hx of covid pna TTE on 05/13 showed low LVEF 20-25%, and severe pulmonary hypertension with RVSP more than 60 mmHg BNP super elevated, recheck tomorrow Lasix as above +Relative hypotension. If MAP decreases further, recommend to add inotrope therapy via Milrinone gtt. # Hyperkalemia Improved, lasix as above # Acute CVA, generalized weakness PT/OT # Htn Cont current med regimen # Anemia Monitor CBC # Hx of DVT S/p IVC filter # Chronic afib Amiodarone, metoprolol and Eliquis Physical Examination - Vital Signs Temperature: 97.3 F Blood Pressure: 120/66 Pulse: 77 Respirations: 18 Pulse Ox (%): 97 Assessment And Plan Physician Review: Patient Assessed, Agree with Above Assessment and Plan
[2023-05-24] MEDS ORDERED: CEFDINIR 300 MG CAP PO SCH (21:00)
[2023-05-24] MEDS: ATORVASTATIN 40 MG TAB PO SCH (21:16)
[2023-05-25] MEDS: METOPROLOL TAR 25 MG TAB PO SCH ×2 (06:00→16:53)
[2023-05-25 06:20] LABS: Potassium 3.8 mEq/L (3.5-5.1)
[2023-05-25] MEDS: levoFLOXacin 750 MG TAB PO SCH (08:44)
[2023-05-25] MEDS: ASPIRIN 81 MG CHEWABLE TABLET PO SCH (08:44)
[2023-05-25] MEDS: APIXABAN 5 MG TABLET PO SCH ×2 (08:44→20:38)
[2023-05-25] MEDS: ENSURE MAX PROTEIN 330 ML LIQUID PO SCH ×2 (08:45→20:49)
[2023-05-25] MEDS: FUROSEMIDE 40 MG TABLET PO SCH ×3 (08:45→20:34)
[2023-05-25] MEDS ORDERED: POTASSIUM CL SA 10 MEQ TAB PO ONE (09:00)
--- NOTE | 2023-05-25 14:35 | P.PN ---
Subjective Date of Service: 05/25/23 Chief Complaint: BLE edema, SOB Pt admitte with SOB and leg edema , ahd CARMELITA , Cr 2.2 increase to 3.2 and now at baseline today no overnight events Cont lasix , will reduce to BID I/O Physical exam General: Awake, NAD , obese HEENT: Atraumatic, Normocephalic Neck: Supple, no elevated JVD Respiratory: CTAB Cardiovascular: No rubs, No murmurs Gastrointestinal: Soft and benign, Non-distended Musculoskeletal: No clubbing Extremities; edema # CARMELITA 2/2 CRS1 SCr improved/plateaued at 2.2 Baseline serum creatinine 0.7-1.1 as of January 2022 Cont lasix , will reduce to 80mg bid # Acute hypoxic respi failure 2/2 acute on chronic systolic HF, severe pulmo Htn Hx of covid pna TTE on 05/13 showed low LVEF 20-25%, and severe pulmonary hypertension with RVSP more than 60 mmHg BNP super elevated, recheck tomorrow Lasix as above +Relative hypotension. If MAP decreases further, recommend to add inotrope therapy via Milrinone gtt. # Hyperkalemia resolved , lasix as above # Acute CVA, generalized weakness PT/OT # Htn Cont current med regimen # Anemia Monitor CBC # Hx of DVT S/p IVC filter # Chronic afib Amiodarone, metoprolol and Eliquis Physical Examination - Vital Signs Temperature: 97.3 F Blood Pressure: 95/53 Pulse: 86 Respirations: 14 Pulse Ox (%): 93 Assessment And Plan Physician Review: Patient Assessed, Agree with Above Assessment and Plan
--- NOTE | 2023-05-25 14:59 | P.PN ---
Subjective Date of Service: 05/25/23 Chief Complaint: BLE edema, SOB Patient denies shortness of breath. She denies any complain Physical Examination - Vital Signs Temperature: 97.3 F Blood Pressure: 95/53 Pulse: 86 Respirations: 14 Pulse Ox (%): 93 Assessment And Plan - Plan Physical Exam: GEN: Alert, NAD. CV: Regular rate and rhythm, no pedal edema. Pulm: Clear to auscultation bilaterally ABD: Soft, nontender, nondistended, PEG tube in place, Neuro: Normal speech, no focal motor deficit. Genitourinary: Solorio catheter in place. vitals reviewed Problem List: acute hypoxic respiratory failure secondary to Acute on chronic systolic CHF exacerbation. Generalized Weakness L eye horizontal palsy acute CVA CARMELITA on CKD 3B. Bacteriuria Incidental 2.3 right thyroid lobe nodule A-fib, chronic; on anticoagulation Hypertension Hyperlipidemia Anemia of chronic disease Osteoarthritis Hypokalemia h/o DVT s/p IVC filter Acute on chronic systolic CHF exacerbation CXR (05/14): Moderate bilateral pulmonary opacities without significant change. +possible small-moderate pleural effusion Repeat chest x-ray shows improvement. Patient is stable on room air Patient reports noncompliance with her Lasix. Troponin elevated but trended flat. This is likely secondary to demand ischemia. Echo (January 2022): EF: 35-40% Echo (05/13): EF: 22%, Severe global hypokinesis, left atrial enlargement, moderate aortic insufficency, mild MR, severe TR, Severe pulmonary hypertension Cardiology saw and evaluated patient. Status post Lasix drip, transitioned to oral Lasix. Renal function is stable on oral Lasix Anasarca has resolved. Nephrology is assisting with diuresis. Generalized Weakness L eye horizontal palsy acute CVA Family reports patient has been feeling weak with poor balance recently; +new vision troubles - L eye palsy / vision loss CT head (05/12): negative for acute findings MRI brain (05/13): 4mm area of abnormal signal deep white matter left parietal lobe could indicate acute infarction or artifact. Images significantly degraded by patient motion artifact. Carotid u/s (05/14): mild stenosis, +2.3 cm right thyroid nodule Neuro consulted Currently receiving PT. Continue aspirin and lipitor. PEG in place. Diet as tolerated. CARMELITA on CKD 3B Nephrology consulted IV lasix switched to Lasix drip (05/17), later transitioned to p.o. Lasix, Renal function has improved and stable with diuresis. Bacteriuria UA: +LE, +RBC 20-50, +WBC >50, Many WBC clumps, +Bacteriuria Urine culture: Multiple organisms isolated including Pseudomonas. All organisms isolated also sensitive to Levaquin. cont empiric Rocephin to cover for possible UTI (05/18-) Change antibiotics to oral Levaquin. Incidental 2.3 cm right thyroid lobe nodule first seen on carotid u/s Thyroid u/s (05/15): 2.3 cm right thyroid lobe nodule with calcifications and mild cystic degeneration f/u for outpatient ultrasound guided FNA thyroid studies within normal limit. Hypertension Continue home medications and hydralazine as needed. Continue metoprolol. A-fib, chronic; on anticoagulation. Continue amiodarone, metoprolol and Eliquis as appropriate Hyperlipidemia. Continue statin Anemia of chronic disease. H&H stable. transfuse if hgb < 7 Osteoarthritis. PRN pain medication Hypokalemia. Replete as needed. Impaired mobility/generalized weakness Patient has has agreed to go to skilled rehab. Awaiting for insurance authorization for skilled rehab placement. VTE: home dose eliquis Code: Full
--- NOTE | 2023-05-25 16:03 | PN ---
Date of Progress Note: 05/25/2023 Subjective: Seen by bedside. Doing well. No significant shortness of breath or lower extremity raymon ma. Review of Systems: No chest pain, shortness of breath, orthopnea, or cough. No nausea, vomiting, or diarrhea. All othe r systems reviewed and they were negative. Physical Examination: Vital Signs: Reviewed. Head and Neck: Pupils are equal, reactive to light. Intact eye movements. No JVD. No cervical lym phadenopathy. Neck is supple. Thyroid is not enlarged. Lungs: Clear to auscultation bilaterally. No rhonchi, wheezing, or crackles. No accessory muscle u se. Heart: Regular rate and rhythm. No extra sounds. Abdomen: Soft, nontender. Bowel sounds positive. No organomegaly. No masses or hernia. No rigidi ty or rebound. Extremities: No clubbing or cyanosis. Intact pulses. Skin: No rash. Neurologic: Alert, awake. No acute focal deficits appreciated. Investigations: BUN is 66, creatinine 1.80, and hemoglobin is 14.3. Assessment And Recommendations: 1.Acute on chronic systolic heart failure exacerbation, gradually improving. Continue p.o. diuretic s. 2.Acute renal failure due to cardiorenal syndrome plus severe fluid congestion. Responding well to Lasix and the patient is being monitored by Nephrology. Of note that her ejection fraction is very l ow and this is nonischemic in nature. Once she is stabilized, she will need to be placed back on Ent tr if Nephrology approves and beta-saeed as part of the guideline-directed medical therapy for systolic h eart failure. /FITZ Voice ID: [id number] Report ID: [id number]
[2023-05-25] MEDS: ATORVASTATIN 40 MG TAB PO SCH (20:38)
[2023-05-26 05:15] LABS: Potassium 3.9 mEq/L (3.5-5.1)
[2023-05-26] MEDS: METOPROLOL TAR 25 MG TAB PO SCH ×2 (05:48→17:14)
[2023-05-26] MEDS ORDERED: POTASSIUM CL SA 10 MEQ TAB PO ONE (07:32)
[2023-05-26] MEDS: APIXABAN 5 MG TABLET PO SCH ×2 (07:46→21:25)
[2023-05-26] MEDS: ASPIRIN 81 MG CHEWABLE TABLET PO SCH (07:46)
[2023-05-26] MEDS: ENSURE MAX PROTEIN 330 ML LIQUID PO SCH ×2 (07:46→21:26)
[2023-05-26] MEDS: FUROSEMIDE 40 MG TABLET PO SCH ×3 (08:53→21:00)
[2023-05-26] MEDS: CALCITROL 0.25 MCG CAP PO SCH (12:20)
--- NOTE | 2023-05-26 13:57 | P.PN ---
Subjective Date of Service: 05/26/23 Chief Complaint: BLE edema, SOB Patient denies shortness of breath. She denies any complain. She is tolerating pured diet. Physical Examination - Vital Signs Temperature: 98.0 F Blood Pressure: 120/61 Pulse: 77 Respirations: 18 Pulse Ox (%): 98 Assessment And Plan - Plan Physical Exam: GEN: Alert, NAD. CV: Regular rate and rhythm, no pedal edema. Pulm: Clear to auscultation bilaterally ABD: Soft, nontender, nondistended, PEG tube in place, Neuro: Normal speech, no focal motor deficit. Genitourinary: Solorio catheter in place. vitals reviewed Problem List: acute hypoxic respiratory failure secondary to Acute on chronic systolic CHF exacerbation. Generalized Weakness L eye horizontal palsy acute CVA CARMELITA on CKD 3B. Bacteriuria Incidental 2.3 right thyroid lobe nodule A-fib, chronic; on anticoagulation Hypertension Hyperlipidemia Anemia of chronic disease Osteoarthritis Hypokalemia h/o DVT s/p IVC filter Acute on chronic systolic CHF exacerbation CXR (05/14): Moderate bilateral pulmonary opacities without significant change. +possible small-moderate pleural effusion Repeat chest x-ray shows improvement. Patient is stable on room air Patient reports noncompliance with her Lasix. Troponin elevated but trended flat. This is likely secondary to demand ischemia. Echo (January 2022): EF: 35-40% Echo (05/13): EF: 22%, Severe global hypokinesis, left atrial enlargement, moderate aortic insufficency, mild MR, severe TR, Severe pulmonary hypertension Cardiology is following. Status post Lasix drip, transitioned to oral Lasix. Renal function is stable on oral Lasix Anasarca has resolved. Nephrology is assisting with diuresis. Generalized Weakness L eye horizontal palsy acute CVA Family reports patient has been feeling weak with poor balance recently; +new vision troubles - L eye palsy / vision loss CT head (05/12): negative for acute findings MRI brain (05/13): 4mm area of abnormal signal deep white matter left parietal lobe could indicate acute infarction or artifact. Images significantly degraded by patient motion artifact. Carotid u/s (05/14): mild stenosis, +2.3 cm right thyroid nodule Neuro consulted Currently receiving PT. Continue aspirin and lipitor. PEG in place. Diet as tolerated. CARMELITA on CKD 3B Nephrology consulted IV lasix switched to Lasix drip (05/17), later transitioned to p.o. Lasix, Renal function has improved and stable with diuresis. Bacteriuria UA: +LE, +RBC 20-50, +WBC >50, Many WBC clumps, +Bacteriuria Urine culture: Multiple organisms isolated including Pseudomonas. All organisms isolated also sensitive to Levaquin. cont empiric Rocephin to cover for possible UTI (05/18-) Antibiotics changed to oral Levaquin. Incidental 2.3 cm right thyroid lobe nodule first seen on carotid u/s Thyroid u/s (05/15): 2.3 cm right thyroid lobe nodule with calcifications and mild cystic degeneration f/u for outpatient ultrasound guided FNA thyroid studies within normal limit. Hypertension Continue home medications and hydralazine as needed. Continue metoprolol. A-fib, chronic; on anticoagulation. Continue amiodarone, metoprolol and Eliquis as appropriate Hyperlipidemia. Continue statin Anemia of chronic disease. H&H stable. transfuse if hgb < 7 Osteoarthritis. PRN pain medication Hypokalemia. Replete as needed. Impaired mobility/generalized weakness Patient has has agreed to go to skilled rehab. Awaiting for insurance authorization for skilled rehab placement. Continue PT. VTE: home dose eliquis Code: Full
[2023-05-26] MEDS: ATORVASTATIN 40 MG TAB PO SCH (21:25)
--- NOTE | 2023-05-26 23:09 | PN ---
Date of Progress Note: 05/26/2023 Subjective: Seen by bedside. Doing clinically well. No shortness of breath. Review of Systems: No chest pain, shortness of breath, orthopnea, or cough. No nausea, vomiting, or diarrhea. All othe r systems reviewed and they are negative. Physical Examination: Vital Signs: Reviewed. Head and Neck: Pupils are equal, reactive to light. Intact eye movements. No JVD. No cervical lym phadenopathy. Neck is supple. Thyroid is not enlarged. Lungs: Clear to auscultation bilaterally. No rhonchi, wheezing, or crackles. No accessory muscle u se. Heart: Regular rate and rhythm. No extra sounds. Abdomen: Soft, nontender. Bowel sounds positive. No organomegaly. No masses or hernia. No rigidi ty or rebound. Extremities: No clubbing or cyanosis. Intact pulses. Skin: No rashes. Neurologic: Alert, awake, oriented x3. No acute focal deficits appreciated. Investigations: BUN 68, creatinine 1.72, and hemoglobin is 14.3. Assessment/recommendation: 1.Acute on chronic systolic heart failure exacerbation, improving with diuresis. Continue current m anagement and care. Monitor BUN, creatinine, and electrolytes. 2.Atrial fibrillation, which is controlled. Continue metoprolol and Eliquis. However, would decrea se the Eliquis to 2.5 mg twice a day due to kidney disease. 3.Acute renal failure, improving gradually. Continue to monitor. SR/MODL Voice ID: [id number] Report ID: [id number]
--- NOTE | 2023-05-27 02:45 | PN ---
Date of Progress Note: 05/26/2023 Chief Complaint: Fluid overload, shortness of breath, dyspnea, chronic kidney disease, acute kidney injury, cardiorenal syndrome. Serum creatinine has increased to 3.2. The patient has acute on chron ic kidney injury. She is on Lasix for volume control and congestive heart failure management. Review of Systems: She is feeling better today. Denies PND or orthopnea. Physical Examination: Lungs: Diminished breath sounds at bases. Few crackles. Heart: S1 and S2. Abdomen: Soft and benign. Extremities: Edema present. Impression And Plan: 1.Acute kidney injury secondary to cardiorenal syndrome. Serum creatinine overall has improved and is plateauing. Baseline creatinine level is 0.7 to 1.1 in January 2022. Serum creatinine level is chastity vated during this admission up to 2.2. Continue Lasix for volume control and treatment of cardiorena l syndrome and congestive heart failure. Lasix dose was reduced to 80 mg twice a day. 2.Hypoxemic acute respiratory failure secondary to chronic and acute systolic heart failure, severe pulmonary hypertension. The patient has history of COVID pneumonia. TTE showed left ventricular eje ction fraction of 20% to 25% and severe pulmonary hypertension. The patient will continue Lasix for volume control and treatment of congestive heart failure. 3.Hyperkalemia, resolved. The patient is on Lasix. Currently off spironolactone. 4.Acute cerebrovascular accident, generalized weakness. The patient is undergoing PT and OT. 5.Hypertension. Continue current medication. 6.Chronic atrial fibrillation, on amiodarone, metoprolol for rate control. The patient is on Eliquis. Adjust Eliquis dose per renal function. Management per Cardiol oscar and Primary team. EB/MODL Voice ID: [id number] Report ID: [id number]
[2023-05-27 05:17] LABS: Potassium 4.1 mEq/L (3.5-5.1)
[2023-05-27] MEDS: METOPROLOL TAR 25 MG TAB PO SCH ×2 (05:25→17:17)
--- NOTE | 2023-05-27 07:17 | P.PN ---
Date of Service: 05/27/23 Subjective: Doing okay Appetite improved Slowly improving with PT no new / worsening problems afebrile ROS: 10 point ROS as noted above, otherwise negative Physical Exam: GEN: Alert, NAD HEENT: Normal conjunctiva, sclera anicteric CV: Regular rate and rhythm, trace edema Pulm: non-labored respirations on room air at rest, diminished at bases b/l ABD: Soft, nontender, nondistended Neuro: Normal speech, L eye unable to move past midline medially PEG tube in place vitals reviewed Problem List: acute hypoxic respiratory failure secondary to Acute on chronic systolic CHF exacerbation. Generalized Weakness L eye horizontal palsy acute CVA CARMELITA on CKD 3B. UTI, multiple organisms Incidental 2.3 right thyroid lobe nodule A-fib, chronic; on anticoagulation Hypertension Hyperlipidemia Anemia of chronic disease Osteoarthritis Hypokalemia h/o DVT s/p IVC filter Acute on chronic systolic CHF exacerbation CXR (05/14): Moderate bilateral pulmonary opacities without significant change. +possible small-moderate pleural effusion Patient reports missing a few doses of lasix this past week trend troponins - elevated x4. Monitor on telemetry Echo (January 2022): EF: 35-40% Echo (05/13): EF: 22%, Severe global hypokinesis, left atrial enlargement, moderate aortic insufficency, mild MR, severe TR, Severe pulmonary hypertension Cardiology consulted Cont PO lasix Anasarca resolved diuresing better now Generalized Weakness L eye horizontal palsy acute CVA Family reports patient has been feeling weak with poor balance recently; +new vision troubles - L eye palsy / vision loss CT head (05/12): negative for acute findings MRI brain (05/13): 4mm area of abnormal signal deep white matter left parietal lobe could indicate acute infarction or artifact. Images significantly degraded by patient motion artifact. Carotid u/s (05/14): mild stenosis, +2.3 cm right thyroid nodule Neuro consulted cont aspirin and lipitor PT consulted PEG in place CARMELITA on CKD 3B Nephrology consulted cont PO lasix renal function improving / stable UTI, multiple organisms Urine culture: Pseudomonas Aeruginosa, Enterococcus Faecalis, Serratia Marcescens, Proteus Mirabilis denies UTI symptoms; afebrile, no leukocytosis Rocephin switched to PO levaquin after culture results Cont PO levaquin Incidental 2.3 cm right thyroid lobe nodule first seen on carotid u/s Thyroid u/s (05/15): 2.3 cm right thyroid lobe nodule with calcifications and mild cystic degeneration f/u for outpatient ultrasound guided FNA thyroid studies ok Hypertension Continue home medications and hydralazine as needed. A-fib, chronic; on anticoagulation. Continue amiodarone, metoprolol and Eliquis as appropriate Hyperlipidemia. Continue statin Anemia of chronic disease. H&H stable. transfuse if hgb < 7 Osteoarthritis. PRN pain medication Hypokalemia. Replete as needed. VTE: home eliquis Code: Full Dispo: SNF - pending approval ss/cm consulted
[2023-05-27] MEDS: APIXABAN 5 MG TABLET PO SCH ×2 (08:39→20:57)
[2023-05-27] MEDS: ASPIRIN 81 MG CHEWABLE TABLET PO SCH (08:39)
[2023-05-27] MEDS: levoFLOXacin 750 MG TAB PO SCH (08:39)
[2023-05-27] MEDS: FUROSEMIDE 40 MG TABLET PO SCH ×2 (08:39→20:57)
[2023-05-27] MEDS: ENSURE MAX PROTEIN 330 ML LIQUID PO SCH ×2 (08:40→20:58)
[2023-05-27 14:03] LABS: SARS-CoV-2 Antigen Rapid Res Negative (Negative)
--- NOTE | 2023-05-27 14:11 | PN ---
Date of Progress Note: 05/27/2023 Subjective: The patient was admitted with acute kidney injury secondary to cardiorenal. The patient was maintained on the diuresis, responding very well. The patient waiting for placement. Physical Examination: Vital Signs: Blood pressure 109/54, pulse of 77, afebrile. The patient had good urine output, voidi ng. As weight fabian, the patient lost 30 pounds from admission. Chest: Decreased entry bilateral base. Heart: S1, S2. Regular. Abdomen: Soft, nontender. Extremities: +1 edema. Neurologic: Alert. No focality. Laboratory Data: Hemoglobin 14.3. Sodium 138, potassium 4.1, bicarb 32, BUN 69, creatinine 1.6, GFR of 33, calcium 8.7. Current Medications: The patient on include; 1.Atorvastatin. 2.Metoprolol 25 b.i.d. 3.Eliquis. 4.Levaquin. 5.Aspirin. 6.Lasix 80 b.i.d. oral. 7.Jevity. 8.Calcitriol. Assessment And Plan: 1.Acute kidney injury secondary to cardiorenal, tends to be normal volume, currently maintaining goo d urine output and good volume status, on current Lasix dose. I am going to continue Lasix 80 mg b.i .d. Keep holding any Entresto or spironolactone. 2.Hypertension, controlled, optimal. We will keep utilizing blood pressure for more diuresis. 3.Secondary hyperparathyroidism. Continue calcitriol. 4.Congestive heart failure with exacerbation, currently normal volume. We will follow up with sesar shepherd. Continue current diuresis dose. 5.Deconditioning. Continue PT, OT. The patient waiting for placement. VIVIAN/FITZ Voice ID: [id number] Report ID: [id number]
[2023-05-27] MEDS: ATORVASTATIN 40 MG TAB PO SCH (20:57)
[2023-05-28] MEDS: METOPROLOL TAR 25 MG TAB PO SCH (05:34)
--- NOTE | 2023-05-28 08:23 | P.DS ---
Admission Date: 05/12/23 Discharge Date: 05/28/23 Disposition: TRANSFER TO SNF - REHAB Discharge Condition: FAIR Reason for Admission: BLE edema, SOB Consultations: Cardiology - Dr. Jose Nephrology - Dr. Chao, Dr. Montero, Dr. Viveros, Dr. Garcia Neurology - Dr. Canales Brief History of Present Illness: 72yo F, PMH: osteoarthritis, hyperlipidemia, hypertension, CHF, A. fib Patient who presents with complaint of BLE edema that has been ongoing for a while. Patient is a poor historian and unable to provide accurate history. Patient reported associated signs and symptoms of shorth of breath, orthopnea and cough. Patient reported that shortness of breath is aggravated with exertion and relieved by nothing. Patient denies any other signs and symptoms. Patient decided to present to the hospital due to worsening symptoms. Hospital Course: Problem List: acute hypoxic respiratory failure secondary to Acute on chronic systolic CHF exacerbation. Generalized Weakness L eye horizontal palsy acute CVA CARMELITA on CKD 3B. UTI, multiple organisms Incidental 2.3 right thyroid lobe nodule A-fib, chronic; on anticoagulation Hypertension Hyperlipidemia Anemia of chronic disease Osteoarthritis Hypokalemia h/o DVT s/p IVC filter Patient presented with worsening BLE edema. Troponins were elevated x4. BNP significantly elevated. Chest xray reported moderate bilateral pulmonary opacities. She was found to be in acute CHF exacerbation with acute renal failure secondary to cardiorenal syndrome. Cardiology was consulted. Echo reported EF: 22%, Severe global hypokinesis, left atrial enlargement, moderate aortic insufficency, mild MR, severe TR, Severe pulmonary hypertension. EF was noted to be decreased from 35-40% from previous Echo. Patient reported missing a few doses of lasix prior to hospitalization. Hospitalization was complicated due to acute renal failure. Nephrology was consulted. Medications were adjusted, she was placed on a lasix drip for short period and onofre placement (for accurate I/O's), and had good response / improvement. She was eventually transitioned to oral lasix with continued improvement - fluid status and renal function. Creatinine peaked at 3.2 and was down to 1.6 on day of discharge. Previous baseline ~1.3-1.5. She was briefly given supplemental tube feeds via her PEG tube. She had improvement of her strength/appetite, and did not require any further tube feeds. During her hospitalization she was found to have a UTI growing multiple organisms including Pseudomonas Aeruginosa, Enterococcus Faecalis, Serratia Marcescens, Proteus Mirabilis. She was initially treated with Rocephin but antibiotics were switched to PO levaquin on culture results and patient remained afebrile without leukocytosis throughout her hospitalization. Family also reported that the patient has been feeling weak with poor balance recently, along with new left eye palsy / vision lost. MRI of the brain reported 4mm area of abnormal signal deep white matter left parietal lobe could indicate acute infarction or artifact. Neurology was consulted. Given the new physical exam findings and MRI findings, this was felt to be consistent with acute CVA. Recommended to follow up as outpatient. Levaquin 750mg q48hr - 10 day total treatment Started 05/25. End date: 06/03. Last received 05/27. Next dose: 05/29 Follow up: PCP 3-5 days Cardiology in 1-2 weeks Nephrology in 1-2 weeks Neurology within a few weeks Incidentally, A 2.3 cm right thyroid lobe nodule with calcifications and mild cystic degeneration was incidentally seen on thyroid ultrasound. Thyroid studies were normal. Radiology recommended follow up outpatient ultrasound guided FNA in the near future. Physical Exam: GEN: Alert, NAD HEENT: Normal conjunctiva, sclera anicteric CV: Regular rate and rhythm, trace edema Pulm: non-labored respirations on room air at rest, diminished at bases b/l ABD: Soft, nontender, nondistended Neuro: Normal speech, L eye unable to move past midline medially Vital Signs/Physical Exam: Temp Pulse Resp BP Pulse Ox 98.3 F 82 18 112/58 L 97 05/28/23 04:00 05/28/23 05:34 05/28/23 04:00 05/28/23 05:34 05/28/23 04:00 Laboratory Data at Discharge: WBC 5.80 thou/uL (4.3-10.9) 05/20/23 02:24 Hgb 14.3 g/dL (12.0-15.0) 05/20/23 02:24 Hct 43.4 % (36.0-45.0) 05/20/23 02:24 Plt Count 130 thou/uL (152-406) L 05/20/23 02:24 PT 10.5 SECONDS (9.2-12.8) 05/12/23 13:47 INR 0.88 05/12/23 13:47 Sodium 138 mEq/L (136-145) 05/27/23 04:29 Potassium 4.1 mEq/L (3.5-5.1) 05/27/23 04:29 BUN 69 mg/dL (7-18) H 05/27/23 04:29 Creatinine 1.62 mg/dL (0.55-1.02) H 05/27/23 04:29 Glucose 99 mg/dL (74-106) 05/27/23 04:29 Uric Acid 11.0 mg/dL (2.6-6.0) H 05/21/23 02:06 Phosphorus 3.4 mg/dL (2.5-4.9) 05/23/23 02:02 Magnesium 2.0 mg/dL (1.6-2.4) 05/24/23 13:24 Triglycerides 108 mg/dL (<150) 05/14/23 01:48 Cholesterol 146 mg/dL (<200) 05/14/23 01:48 HDL Cholesterol 52 mg/dL (40-60) 05/14/23 01:48 Cholesterol/HDL Ratio 2.81 05/14/23 01:48 Home Medications: Apixaban [Eliquis *] 5 mg PO BID #60 tablet 11/08/22 Potassium Chloride [K-Dur] 10 meq PO DAILY #30 tab 11/08/22 Ensure Max Protein 330 ml PO BID #60 can 04/12/23 Metoprolol Tartrate [Lopressor*] 100 mg PO BID 6AM 6PM 05/12/23 Aspirin Chewable [Aspirin Chewable*] 81 mg PO DAILY #30 tab.chew 05/22/23 Atorvastatin Calcium [Lipitor] 40 mg PO BEDTIME #30 tab 05/22/23 Calcitrol [Rocaltrol*] 0.25 mcg PO Q48H #15 cap 05/22/23 Furosemide [Lasix*] 80 mg PO TID #180 tab 05/22/23 Furosemide [Lasix*] 80 mg PO BID tab 05/28/23 levoFLOXacin [Levaquin*] 750 mg PO Q48H 6 Days #3 tab 05/28/23 New Medications: Aspirin Chewable [Aspirin Chewable*] 81 mg PO DAILY #30 tab.chew Furosemide [Lasix*] 80 mg PO TID #180 tab Atorvastatin Calcium [Lipitor] 40 mg PO BEDTIME #30 tab Calcitrol [Rocaltrol*] 0.25 mcg PO Q48H #15 cap Physician Discharge Instructions: Patient presented with worsening BLE edema. Troponins were elevated x4. BNP significantly elevated. Chest xray reported moderate bilateral pulmonary opacities. She was found to be in acute CHF exacerbation with acute renal failure secondary to cardiorenal syndrome. Cardiology was consulted. Echo reported EF: 22%, Severe global hypokinesis, left atrial enlargement, moderate aortic insufficency, mild MR, severe TR, Severe pulmonary hypertension. EF was noted to be decreased from 35-40% from previous Echo. Patient reported missing a few doses of lasix prior to hospitalization. Hospitalization was complicated due to acute renal failure. Nephrology was consulted. Medications were adjusted, she was placed on a lasix drip for short period and onofre placement (for accurate I/O's), and had good response / improvement. She was eventually transitioned to oral lasix with continued improvement - fluid status and renal function. Creatinine peaked at 3.2 and was down to 1.6 on day of discharge. Previous baseline ~1.3-1.5. She was briefly given supplemental tube feeds via her PEG tube. She had improvement of her strength/appetite, and did not require any further tube feeds. During her hospitalization she was found to have a UTI growing multiple organisms including Pseudomonas Aeruginosa, Enterococcus Faecalis, Serratia Marcescens, Proteus Mirabilis. She was initially treated with Rocephin but antibiotics were switched to PO levaquin on culture results and patient remained afebrile without leukocytosis throughout her hospitalization. Family also reported that the patient has been feeling weak with poor balance recently, along with new left eye palsy / vision lost. MRI of the brain reported 4mm area of abnormal signal deep white matter left parietal lobe could indicate acute infarction or artifact. Neurology was consulted. Given the new physical exam findings and MRI findings, this was felt to be consistent with acute CVA. Recommended to follow up as outpatient. Levaquin 750mg q48hr - 10 day total treatment Started 05/25. End date: 06/03. Last received 05/27. Next dose: 05/29 Follow up: PCP 3-5 days Cardiology in 1-2 weeks Nephrology in 1-2 weeks Neurology within a few weeks Incidentally, A 2.3 cm right thyroid lobe nodule with calcifications and mild cystic degeneration was incidentally seen on thyroid ultrasound. Thyroid studies were normal. Radiology recommended follow up outpatient ultrasound guided FNA in the near future. Diet: AHA Activity: Fall precautions Followup: Jitendra Chao MD [ACTIVE - CAN ADMIT] - (Within 2 weeks) Kina Barajas DO [Primary Care Provider] - 1-2 Weeks (Call to schedule appoiontment) Time spent managing pt's care (in minutes): 45
[2023-05-28 08:51] VITALS: O2SAT 94
[2023-05-28] MEDS: ENSURE MAX PROTEIN 330 ML LIQUID PO SCH (09:00)
[2023-05-28] MEDS: FUROSEMIDE 40 MG TABLET PO SCH (09:23)
[2023-05-28] MEDS: APIXABAN 5 MG TABLET PO SCH (09:23)
[2023-05-28] MEDS: ASPIRIN 81 MG CHEWABLE TABLET PO SCH (09:23)
[2023-05-28 09:24] VITALS: TEMP 97.5
[2023-05-28 09:28] VITALS: BP 105/52
[2023-05-28 09:49] LABS: Magnesium 1.9 mg/dL (1.6-2.4)
--- NOTE | 2023-05-28 15:15 | PN ---
Date of Progress Note: 05/28/2023 Subjective: The patient was admitted to the hospital with anasarca, acute kidney injury secondary to cardiorenal. The patient was diuresed aggressively. The patient had UTI. Physical Examination: Vital Signs: Blood pressure 105/52, pulse of 66, afebrile. Chest: Clear to auscultation. Heart: S1, S2. Systolic murmur. Abdomen: Soft, nontender. Extremities: +1 edema. Neurologic: Alert. No focality. Laboratory Data: Hemoglobin 14.3. Sodium 143, potassium 4, bicarb 34, BUN 63, creatinine 1.6, calci um 9, magnesium 1.9. Current Medications: The patient is on include; 1.Lasix 80 t.i.d. 2.Levaquin. 3.Eliquis. 4.KCl. 5.Calcitriol. 6.Atorvastatin. 7.Aspirin. Assessment And Plan: 1.Acute kidney injury secondary to cardiorenal, back to baseline. We will continue current diuresis . 2.Hypertension, controlled, optimal. Continue utilize blood pressure for more diuresis. 3.Urinary tract infection, multi-organism. Continue current antibiotics. 4.Coronary artery disease with congestive heart failure with exacerbation, ejection fraction of 40%. Continue Lasix 80 t.i.d. The patient could not tolerate Entresto neither spironolactone. We will follow up. The patient cleared from the Renal standpoint for discharge planning. TELLO Voice ID: [id number] Report ID: [id number]
== END 2023-05-28 11:35 | DRG 64 ==
LOC: ER 12:22 → ERHOLD 17:14 → 2ND 18:45
PROVIDERS: ADMIT Internal Medicine; ATTEND Hospitalist
DX: I63.9 Cerebral infarction, unspecified (principal); I50.23 Acute on chronic systolic (congestive) heart failure; J96.01 Acute respiratory failure with hypoxia; I13.0 Hypertensive heart and chronic kidney disease with heart failure and stage 1 through stage 4 chronic kidney disease, or unspecified chronic kidney disease; N17.9 Acute kidney failure, unspecified; N25.81 Secondary hyperparathyroidism of renal origin; I48.20 Chronic atrial fibrillation, unspecified; E87.1 Hypo-osmolality and hyponatremia; N39.0 Urinary tract infection, site not specified; N18.32 Chronic kidney disease, stage 3b; D63.1 Anemia in chronic kidney disease; L89.321 Pressure ulcer of left buttock, stage 1; E04.1 Nontoxic single thyroid nodule; H54.7 Unspecified visual loss; E78.5 Hyperlipidemia, unspecified; E87.5 Hyperkalemia; E87.6 Hypokalemia; I08.3 Combined rheumatic disorders of mitral, aortic and tricuspid valves; I27.20 Pulmonary hypertension, unspecified; M19.90 Unspecified osteoarthritis, unspecified site; I25.10 Atherosclerotic heart disease of native coronary artery without angina pectoris; B95.2 Enterococcus as the cause of diseases classified elsewhere; B96.5 Pseudomonas (aeruginosa) (mallei) (pseudomallei) as the cause of diseases classified elsewhere; B96.4 Proteus (mirabilis) (morganii) as the cause of diseases classified elsewhere; B96.89 Other specified bacterial agents as the cause of diseases classified elsewhere; R82.71 Bacteriuria; R77.8 Other specified abnormalities of plasma proteins; Z93.1 Gastrostomy status; Z79.01 Long term (current) use of anticoagulants; Z86.16 Personal history of COVID-19; Z90.49 Acquired absence of other specified parts of digestive tract; Z90.710 Acquired absence of both cervix and uterus; Z79.899 Other long term (current) drug therapy; Z20.822 Contact with and (suspected) exposure to COVID-19
CPT/HCPCS: 36415; 49465; 70450; 70551; 71045; 76536; 76770; 80048; 80061; 80069; 81001; 82550; 82570; 83520; 83735; 83880; 83935; 83970; 84100; 84132; 84156; 84300; 84439; 84443; 84484; 84550; 85025; 85027; 85610; 86021; 86038; 86160; 86225; 86430; 87077; 87086; 87088; 87186; 87522; 87811; 93005; 93306; 93880; 96374; 97110; 97116; 97161; 97530; 99285; J0696; J1940; J3475; J7030; J7120